=== PATIENT | female | born 1975 | race Two or more races ===

== ENCOUNTER → 2021-09-21 13:33 | Outpatient (BNVA) | payer MEDICAID, SELFPAY | PROVIDERS: PCP Internal Medicine Geriatric Medicine; Referring Provider Internal Medicine Geriatric Medicine; Visit Provider Surgery | DX: K42.9 Umbilical hernia without obstruction or gangrene (principal); B36.9 Superficial mycosis, unspecified | CPT/HCPCS: 99202 ==

== ENCOUNTER 2021-10-05 11:37 | Outpatient (REF) | payer MEDICAID, SELFPAY ==
--- NOTE | ~2021-10-05 | MM_ITS ---
EXAMINATION: MM SCREENING DIGITAL BREAST TOMOSYNTHESIS, BILATERAL CLINICAL INFORMATION: Screening. Asymptomatic. The lifetime risk of breast cancer based on the Tyrer-Cuzick Model is 7%. COMPARISON: Mammography: 05/24/2019, 05/09/2018, 10/22/2016 TECHNIQUE: Digital breast tomosynthesis is performed in both the craniocaudal and mediolateral oblique views along with computer-aided detection (CAD). Synthesized 2D images are generated from the tomosynthesis. Additional right MLO view is provided. FINDINGS: The breasts are almost entirely fatty (ACR BI-RADS breast composition Category a). There are no significant masses, abnormal calcifications, or other abnormalities. Background stromal and fibroglandular densities are similar to prior exams. The axilla and skin contours are unremarkable. No significant changes. MM/MM tomosynthesis screening BI IMPRESSION: No mammographic evidence of malignancy. ASSESSMENT: BI-RADS 1: Negative RECOMMENDATION: Routine annual mammography screening. This patient's information was entered into a reminder system with a target due date for their next mammogram.
== END 2021-10-05 11:38 | disposition home or self-care (01) ==
LOC: HO.MAMMO 11:37
PROVIDERS: PCP Advanced Practice Midwife; Visit Provider Advanced Practice Midwife
DX: Z12.31 Encounter for screening mammogram for malignant neoplasm of breast (principal)
CPT/HCPCS: 77063; 77067

== ENCOUNTER 2021-10-13 10:28 | Outpatient (REF) | payer MEDICAID, SELFPAY ==
--- NOTE | ~2021-10-13 | US_ITS ---
EXAMINATION: US PELVIS CLINICAL INFORMATION: Dysmenorrhea COMPARISON: Previous pelvic ultrasound most recent February 2019 TECHNIQUE: Ultrasound of the pelvis is performed using both transabdominal and transvaginal transducers along with Doppler. Transvaginal imaging is performed due to inadequate visualization transabdominally. FINDINGS: The uterus is anteverted and measures 9.7 x 6.4 x 5.9 cm in dimension. No focal uterine lesion is seen. Endometrial thickness is slightly increased measuring 1.7 cm. No focal uterine lesion is seen. There are nabothian cysts in the cervix. The ovaries are normal-appearing. The right ovary measures 2.4 x 1.6 x 2.9 cm. The left ovary measures 2.2 x 1.3 x 2.5 cm. There is no fluid in the pelvis. US/US pelvic and transvaginal IMPRESSION: Slightly thickened endometrium measuring 1.7 cm. Otherwise unremarkable exam.
== END 2021-10-13 10:29 | disposition home or self-care (01) ==
LOC: HO.US 10:28
PROVIDERS: PCP Advanced Practice Midwife; Visit Provider Advanced Practice Midwife
DX: N94.6 Dysmenorrhea, unspecified (principal)
CPT/HCPCS: 76830; 76856

== ENCOUNTER → 2021-10-19 09:08 | Outpatient (BNVA) | payer MEDICAID, SELFPAY | PROVIDERS: PCP Advanced Practice Midwife; Referring Provider Internal Medicine Geriatric Medicine; Visit Provider Physician Assistant Surgical | DX: Z13.89 Encounter for screening for other disorder (principal) ==

== ENCOUNTER → 2021-10-21 11:05 | Outpatient (BNVA) | payer MEDICAID, SELFPAY | PROVIDERS: PCP Advanced Practice Midwife; Referring Provider Advanced Practice Midwife; Visit Provider Physician Assistant | DX: K21.9 Gastro-esophageal reflux disease without esophagitis (principal); R13.10 Dysphagia, unspecified | CPT/HCPCS: 99202 ==

== ENCOUNTER → 2021-10-28 14:49 | Outpatient (BNVA) | payer MEDICAID, SELFPAY | PROVIDERS: PCP Internal Medicine Geriatric Medicine; Referring Provider Internal Medicine Geriatric Medicine; Visit Provider Physician Assistant Surgical | DX: E66.01 Morbid (severe) obesity due to excess calories (principal); Z68.41 Body mass index [BMI] 40.0-44.9, adult | CPT/HCPCS: 99202 ==

== ENCOUNTER 2021-11-08 11:23 | Outpatient (REF) | payer MEDICAID, SELFPAY ==
--- NOTE | ~2021-11-08 | XR_ITS ---
EXAMINATION: XR CHEST CLINICAL INFORMATION: Morbid to severe obesity. COMPARISON: None TECHNIQUE: 2 views of the chest were obtained. FINDINGS: No significant abnormality is noted involving the heart, lungs, mediastinum, bony thorax or soft tissues. XR/XR chest 2V IMPRESSION: Unremarkable chest examination.
--- NOTE | 2021-11-08 11:30 | ECG_ITS ---
Test Reason : OBESITY Blood Pressure : / mmHG Vent. Rate : 078 BPM Atrial Rate : 078 BPM P-R Int : 166 ms QRS Dur : 072 ms QT Int : 360 ms P-R-T Axes : 014 -17 -04 degrees QTc Int : 410 ms Normal sinus rhythm Normal ECG When compared with ECG of 19-JUL-2015 10:23, No significant change was found Referred By: Vern Hemphill Electronically Signed By:YASH IZQUIERDO MD
[2021-11-08 11:38] LABS: MANUAL DIFF FLAG NO
[2021-11-08 12:06] LABS: Estimated Average Glucose 128 mg/dL; Hemoglobin A1c % 6.1 %
[2021-11-08 12:11] LABS: Basophils Absolute Auto 0.1 X10*3/uL (0.0-0.2); Basophils Percent Auto 0.9 % (0-2); Eosinophils Absolute Auto 0.1 X10*3/uL (0.0-0.4); Eosinophils Percent Auto 2.1 % (0-4); Hematocrit 40.3 % (37.0-47.0); Imm Gran Abs Auto 0.02 X10*3/uL (0.00-0.03); Imm Gran Pct Auto 0.3 % (0.0-0.4); Lymphocytes Absolute Auto 2.1 X10*3/uL (1.2-4.9); Lymphocytes Percent Auto 30.8 % (20-40); Mean Corpuscular HGB Conc 32.3 g/dl (31.0-35.0); Mean Corpuscular Hemoglobin 27.5 pg (27.0-33.0); Mean Corpuscular Volume 85.4 fL (80.0-98.0); Mean Platelet Volume 9.5 fL (9.4-12.3); Monocytes Absolute Auto 0.5 X10*3/uL (0.1-1.2); Neutrophils Percent Auto 58.9 % (45-73); Platelet Count 381 X10*3/uL (160-400); Red Blood Count 4.72 X10*6/uL (4.20-5.50); Red Cell Distribution Width 13.1 % (11.0-16.0); White Blood Count 6.8 X10*3/uL (4.8-10.8)
[2021-11-08 12:31] LABS: Alanine Aminotransferase 36 U/L (0-31); Alkaline Phosphatase 45 U/L (39-117); Anion Gap 12 (12-20); Aspartate Amino Transferase 25 U/L (5-31); Bilirubin Total 0.6 mg/dL (0.0-1.0); Blood Urea Nitrogen 8 mg/dL (9-16); C Reactive Protein 0.47 mg/dL (< or = 0.50); Calcium 9.7 mg/dL (8.4-10.2); Carbon Dioxide 25 mmol/L (22-29); Chloride 105 mmol/L (96-108); Cholesterol 174 mg/dL; Estimated Glomerular Filt Rate > 60; Glucose Random 92 mg/dL (60-115); HDL Cholesterol 37 mg/dL; Iron 42 mcg/dL (30-160); LDL Cholesterol Calculated 117 mg/dl; Percent Iron Saturation 12 % (15-50); Potassium 4.3 mmol/L (3.3-5.1); Sodium 138 mmol/L (135-145); Total Iron Binding Capacity 349 mcg/dL (228-428); Total Protein 7.4 g/dL (6.5-8.0); Triglycerides 102 mg/dL; Unsaturated Iron Binding 307 ug/dL
[2021-11-08 12:46] LABS: Ferritin 20 ng/mL (10-250); Insulin 8 uU/mL (2-29); TSH reflex Free T4 0.44 uIU/mL (0.32-4.0); Vitamin D 25-OH Total 33.7 ng/mL (>30)
[2021-11-08 12:59] LABS: Folate 15.6 ng/mL (> or = 4.0); Vitamin B12 825 pg/mL (200-900)
[2021-11-09 12:37] LABS: Calcium (PTHI) 9.6 mg/dL (8.6-10.2); PTHI 20 pg/mL (16-77)
[2021-11-11 17:01] LABS: Vitamin B1 <6 nmol/L (8-30)
[2021-11-12 14:26] LABS: Zinc 68 mcg/dL (60-130)
[2021-11-15 13:41] LABS: Vitamin A 27 mcg/dL (38-98)
== END 2021-11-08 11:24 | disposition home or self-care (01) ==
LOC: HO.LAB 11:23
PROVIDERS: PCP Internal Medicine Geriatric Medicine; Visit Provider Physician Assistant Surgical
DX: E66.01 Morbid (severe) obesity due to excess calories (principal)
CPT/HCPCS: 36415; 71046; 80053; 80061; 82306; 82607; 82728; 82746; 83036; 83525; 83540; 83970; 84425; 84443; 84590; 84630; 85025; 86140; 93005

== ENCOUNTER → 2021-11-12 11:01 | Outpatient (BNVA) | payer MEDICAID, SELFPAY | PROVIDERS: PCP Internal Medicine Geriatric Medicine; Referring Provider Internal Medicine Geriatric Medicine; Visit Provider Physician Assistant Surgical | DX: E66.01 Morbid (severe) obesity due to excess calories (principal); E51.9 Thiamine deficiency, unspecified; Z68.41 Body mass index [BMI] 40.0-44.9, adult | CPT/HCPCS: 99212 ==

== ENCOUNTER 2021-11-16 12:39 | Outpatient (REF) | payer MEDICAID, SELFPAY ==
[2021-11-17 12:43] LABS: H Pylori Breath Test Negative (Negative)
== END 2021-11-16 12:40 | disposition home or self-care (01) ==
LOC: HO.LNP 12:39
PROVIDERS: PCP Internal Medicine Geriatric Medicine; Referring Provider Internal Medicine Geriatric Medicine; Visit Provider Physician Assistant Surgical
DX: E66.01 Morbid (severe) obesity due to excess calories (principal)
CPT/HCPCS: 83013; 99211

== ENCOUNTER → 2021-11-22 08:19 | Outpatient (BNVA) | payer MEDICAID, SELFPAY | PROVIDERS: PCP Internal Medicine Geriatric Medicine; Visit Provider Dietitian, Registered | DX: E66.01 Morbid (severe) obesity due to excess calories (principal) | CPT/HCPCS: 97802 ==

== ENCOUNTER 2021-12-02 07:51 | Outpatient (REF) | payer MEDICAID, SELFPAY ==
[2021-12-02 15:46] LABS: CT PCR NOT DETECTED (Not Detect.); NG PCR NOT DETECTED (Not Detect.)
[2021-12-03 11:08] LABS: BV Int Neg Control Negative (Negative); BV Int Pos Control Positive (Positive)
== END 2021-12-02 07:52 | disposition home or self-care (01) ==
LOC: HO.LAB 07:51
PROVIDERS: PCP Internal Medicine Geriatric Medicine; Visit Provider Advanced Practice Midwife
DX: N92.0 Excessive and frequent menstruation with regular cycle (principal); N94.10 Unspecified dyspareunia
CPT/HCPCS: 58100; 87480; 87491; 87510; 87591; 87660; 99202

== ENCOUNTER → 2021-12-13 13:00 | Outpatient (BNVA) | payer MEDICAID, SELFPAY | PROVIDERS: PCP Internal Medicine Geriatric Medicine; Visit Provider Dietitian, Registered | DX: E66.01 Morbid (severe) obesity due to excess calories (principal); Z68.41 Body mass index [BMI] 40.0-44.9, adult | CPT/HCPCS: 97803 ==

== ENCOUNTER 2021-12-21 08:47 | Outpatient (REF) | payer MEDICAID, SELFPAY ==
--- NOTE | ~2021-12-21 | FL_ITS ---
EXAMINATION: XR FLUOROSCOPY UPPER GI WITH AIR CLINICAL INFORMATION: Obesity COMPARISON: Previous upper GI December 2019 TECHNIQUE: Upper GI was performed using thin and thick barium and effervescent granules FINDINGS: Esophageal motility is normal. There is a small hiatal hernia. There is mild gastroesophageal reflux. The stomach and duodenum are normal-appearing. No fold thickening, mass, ulcer or stricture is seen FLUOROSCOPY TIME: 1 minute DOSE AREA PRODUCT: 12.6 christensen per centimeter squared. 28 saved fluoroscopic images. FL/FL upper GI w air IMPRESSION: Small hiatal hernia and mild gastroesophageal reflux.
--- NOTE | ~2021-12-21 | US_ITS ---
EXAMINATION: US COMPLETE ABDOMEN WITH LIVER ELASTOGRAPHY CLINICAL INFORMATION: Morbid/severe obesity due to excess calories. COMPARISON: None. TECHNIQUE: Real-time imaging of the abdominal viscera. Noninvasive ultrasound liver fibrosis assessment is performed using Arnulfo ElastPQ point quantification shear wave elastography (2D-SWE) with a C5-2 MHz transducer. Multiple elastography samples are obtained. FINDINGS: PANCREAS: Normal. The visualized pancreatic head and body are normal in appearance. The remainder of the pancreas is obscured from visualization by the overlying bowel gas. ABDOMINAL AORTA: The proximal, middle, and distal aortic segments are normal in caliber. INFERIOR VENA CAVA: Visualized portions are normal. LIVER: The liver demonstrates normal size, contour and increased echogenicity. No focal lesion or intrahepatic biliary duct dilatation. The right lobe measures 15.5 cm in length. The left lobe measures 10.8 cm in length. Portal flow is hepatopedal. Shear wave liver elastography median stiffness is 1.22 m/s (reference: normal median stiffness is 1.3 m/s or less). IQR/median stiffness to assess sampling precision is 0.16 (reference: good quality data set is IQR/median stiffness of 0.15 or less). GALLBLADDER: The gallbladder has been surgically removed. COMMON BILE DUCT: Normal in caliber measuring 0.85 cm in diameter. RIGHT KIDNEY: Normal. No hydronephrosis. No renal calculi or focal parenchymal lesions. The kidney measures 14.7 cm in maximum dimension. LEFT KIDNEY: Normal. No hydronephrosis. No renal calculi or focal parenchymal lesions. The kidney measures 14.5 cm in maximum dimension. SPLEEN: Normal. The spleen measures 9.1 cm in maximum dimension. FREE FLUID: None. US/US abdomen comp w elastography IMPRESSION: 1. Mild hepatic steatosis without focal lesion. The rest of the abdominal ultrasound is unremarkable. 2. Liver elastography: Median liver stiffness measures 1.22 m/s corresponding to high probability normal findings. REFERENCE: Society of Radiologists in Ultrasound Liver Stiffness Thresholds (2020): LIVER STIFFNESS THRESHOLDS: *Liver Stiffness equal or less than 1.3 m/s: High probability of being normal. *Liver Stiffness less than 1.7 m/s: In the absence of other known clinical signs, rules out compensated advanced chronic liver disease. *Liver Stiffness 1.7-2.1 m/s: Suggestive of compensated advanced chronic liver disease but need further test for confirmation. *Liver Stiffness over 2.1 m/s: Rules in compensated advanced chronic liver disease. *Liver Stiffness over 2.4 m/s: Suggestive of clinically significant portal hypertension. QUALITY OF DATA SET: *IQR/Median value equal or less than 0.15 implies a quality data set. *IQR/Median value over 0.15 implies a poor quality data set. SIGNIFICANT CHANGE FROM PRIOR EXAM: Significant change if liver stiffness measurement is 10% or greater from prior exam. OTHER CONSIDERATIONS: The stage of liver fibrosis may be overestimated in the setting of acute hepatitis, liver inflammation, elevated liver function tests, hepatic vascular congestion, obstructive cholestasis, non-fasting state, and infiltrative diseases such as amyloidosis and lymphoma. In some patients with NAFLD, the liver stiffness thresholds for compensated advanced chronic liver disease may be lower. In causes other than viral hepatitis and NAFLD, liver stiffness thresholds are not well established.
== END 2021-12-21 08:48 | disposition home or self-care (01) ==
LOC: HO.US 08:47
PROVIDERS: PCP Internal Medicine Geriatric Medicine; Visit Provider Surgery
DX: E66.01 Morbid (severe) obesity due to excess calories (principal)
CPT/HCPCS: 74246; 76705; 76981

== ENCOUNTER → 2022-01-19 15:09 | Outpatient (BNVA) | payer MEDICAID, SELFPAY | PROVIDERS: PCP Internal Medicine Geriatric Medicine; Visit Provider Dietitian, Registered | DX: E66.01 Morbid (severe) obesity due to excess calories (principal) | CPT/HCPCS: 97803 ==

== ENCOUNTER → 2022-01-25 13:21 | Outpatient (BNVA) | payer MEDICAID, SELFPAY | PROVIDERS: PCP Internal Medicine Geriatric Medicine; Visit Provider Physician Assistant Surgical | DX: E66.01 Morbid (severe) obesity due to excess calories (principal); R53.83 Other fatigue; Z68.41 Body mass index [BMI] 40.0-44.9, adult | CPT/HCPCS: 99212 ==

== ENCOUNTER → 2022-05-31 09:34 | Outpatient (BNVA) | payer MEDICAID, SELFPAY | PROVIDERS: PCP Internal Medicine Geriatric Medicine; Visit Provider Physician Assistant Surgical | DX: E66.01 Morbid (severe) obesity due to excess calories (principal); Z68.41 Body mass index [BMI] 40.0-44.9, adult | CPT/HCPCS: 99212 ==

== ENCOUNTER → 2022-06-24 10:32 | Outpatient (BNVA) | payer MEDICAID, SELFPAY | PROVIDERS: PCP Internal Medicine Geriatric Medicine; Visit Provider Physician Assistant Surgical | DX: E66.01 Morbid (severe) obesity due to excess calories (principal); Z68.41 Body mass index [BMI] 40.0-44.9, adult | CPT/HCPCS: 99212 ==

== ENCOUNTER → 2022-06-30 11:15 | Outpatient (BNVA) | payer MEDICAID, SELFPAY | PROVIDERS: PCP Internal Medicine Geriatric Medicine; Visit Provider Dietitian, Registered | DX: E66.01 Morbid (severe) obesity due to excess calories (principal) | CPT/HCPCS: 97803 ==

== ENCOUNTER 2022-07-13 10:42 | Outpatient (REF) | payer MEDICAID, SELFPAY ==
[2022-07-13 12:30] LABS: Estimated Average Glucose 120 mg/dL; Hemoglobin A1c % 5.8 %
[2022-07-13 13:11] LABS: Vitamin D 25-OH Total 32.9 ng/mL (>30)
[2022-07-13 13:23] LABS: Folate 10.6 ng/mL (> or = 4.0); Vitamin B12 945 pg/mL (200-900)
[2022-07-17 10:18] LABS: Vitamin A 58 mcg/dL (38-98); Zinc 73 mcg/dL (60-130)
[2022-07-18 08:13] LABS: Vitamin B1 8 nmol/L (8-30)
== END 2022-07-13 10:43 | disposition home or self-care (01) ==
LOC: HO.LAB 10:42
PROVIDERS: PCP Internal Medicine Geriatric Medicine; Visit Provider Physician Assistant Surgical
DX: E66.01 Morbid (severe) obesity due to excess calories (principal); E56.9 Vitamin deficiency, unspecified
CPT/HCPCS: 36415; 82306; 82607; 82746; 83036; 84425; 84590; 84630; 99212

== ENCOUNTER → 2022-07-22 12:27 | Outpatient (BNVA) | payer MEDICAID, SELFPAY | PROVIDERS: PCP Internal Medicine Geriatric Medicine; Visit Provider Dietitian, Registered | DX: E66.9 Obesity, unspecified (principal); Z68.41 Body mass index [BMI] 40.0-44.9, adult; E51.9 Thiamine deficiency, unspecified; R73.03 Prediabetes; G47.33 Obstructive sleep apnea (adult) (pediatric); I10 Essential (primary) hypertension; K21.9 Gastro-esophageal reflux disease without esophagitis; K42.9 Umbilical hernia without obstruction or gangrene; R13.10 Dysphagia, unspecified; K44.9 Diaphragmatic hernia without obstruction or gangrene; J45.909 Unspecified asthma, uncomplicated; Z99.89 Dependence on other enabling machines and devices; Z71.3 Dietary counseling and surveillance | CPT/HCPCS: 97803; 99202 ==

== ENCOUNTER → 2022-07-28 10:00 | Outpatient (BNVA) | payer MEDICAID, SELFPAY | PROVIDERS: PCP Internal Medicine Geriatric Medicine; Visit Provider Physician Assistant Surgical | DX: Z13.89 Encounter for screening for other disorder (principal) ==

== ENCOUNTER → 2022-08-03 09:50 | Outpatient (BNVA) | payer MEDICAID, SELFPAY | PROVIDERS: PCP Internal Medicine Geriatric Medicine; Visit Provider Surgery | DX: E66.01 Morbid (severe) obesity due to excess calories (principal); I10 Essential (primary) hypertension; R73.03 Prediabetes; K44.9 Diaphragmatic hernia without obstruction or gangrene; K21.9 Gastro-esophageal reflux disease without esophagitis; Z68.39 Body mass index [BMI] 39.0-39.9, adult; K42.9 Umbilical hernia without obstruction or gangrene | CPT/HCPCS: 99212 ==

== ENCOUNTER → 2022-08-04 10:09 | Outpatient (BNVA) | payer MEDICAID, SELFPAY | PROVIDERS: PCP Internal Medicine Geriatric Medicine; Visit Provider Surgery | DX: Z13.89 Encounter for screening for other disorder (principal) ==

== ENCOUNTER 2022-08-10 08:31 | Inpatient (IN) | payer MEDICAID, SELFPAY ==
[2022-08-03 14:01] VITALS: BMI 39.6
[2022-08-05 10:31] LABS: MANUAL DIFF FLAG NO
[2022-08-05 11:01] LABS: Basophils Percent Auto 0.6 % (0-2); Eosinophils Absolute Auto 0.1 X10*3/uL (0.0-0.4); Eosinophils Percent Auto 1.7 % (0-4); Hematocrit 38.3 % (37.0-47.0); Hemoglobin 12.5 g/dl (12.0-16.0); Imm Gran Abs Auto 0.01 X10*3/uL (0.00-0.03); Imm Gran Pct Auto 0.2 % (0.0-0.4); Lymphocytes Absolute Auto 1.9 X10*3/uL (1.2-4.9); Lymphocytes Percent Auto 28.6 % (20-40); Mean Corpuscular HGB Conc 32.6 g/dl (31.0-35.0); Mean Corpuscular Hemoglobin 27.1 pg (27.0-33.0); Mean Corpuscular Volume 82.9 fL (80.0-98.0); Mean Platelet Volume 9.3 fL (9.4-12.3); Monocytes Absolute Auto 0.4 X10*3/uL (0.1-1.2); Monocytes Percent Auto 5.8 % (2-11); Neutrophils Absolute Auto 4.1 x10*3/uL (2.0-8.3); Neutrophils Percent Auto 63.1 % (45-73); Platelet Count 361 X10*3/uL (160-400); Red Blood Count 4.62 X10*6/uL (4.20-5.50); Red Cell Distribution Width 13.5 % (11.0-16.0); White Blood Count 6.5 X10*3/uL (4.8-10.8)
[2022-08-05 11:06] LABS: INTERNATIONAL NORM RATIO 1.2 (0.9-1.1); Prothrombin Time 13.6 SEC (10.0-13.1)
[2022-08-05 11:09] LABS: Partial Thromboplastin Time 36.2 SEC (26.0-36.4)
[2022-08-05 11:19] LABS: Estimated Average Glucose 117 mg/dL; Hemoglobin A1C 125.0262 umol/L; Hemoglobin A1c % 5.7 %
[2022-08-05 12:18] LABS: Alanine Aminotransferase 14 U/L (0-31); Albumin Level 4.1 g/dL (3.5-5.0); Alkaline Phosphatase 46 U/L (39-117); Anion Gap 13 (12-20); Aspartate Amino Transferase 14 U/L (5-31); Bilirubin Total 0.5 mg/dL (0.0-1.0); Blood Urea Nitrogen 7 mg/dL (9-16); C Reactive Protein 0.36 mg/dL (< or = 0.50); Calcium 9.4 mg/dL (8.4-10.2); Carbon Dioxide 24 mmol/L (22-29); Chloride 105 mmol/L (96-108); Cholesterol 182 mg/dL; Creatinine Clr Calc Pharmacy 139.9; Estimated Glomerular Filt Rate > 60; Glucose Random 74 mg/dL (60-115); HDL Cholesterol 35 mg/dL; Iron 72 mcg/dL (30-160); LDL Cholesterol Calculated 131 mg/dl; Percent Iron Saturation 24 % (15-50); Potassium 4.4 mmol/L (3.3-5.1); Sodium 138 mmol/L (135-145); Total Iron Binding Capacity 303 mcg/dL (228-428); Total Protein 7.2 g/dL (6.5-8.0); Triglycerides 82 mg/dL; Unsaturated Iron Binding 231 ug/dL
[2022-08-05 12:22] LABS: Vitamin B12 835 pg/mL (200-900)
[2022-08-05 12:23] LABS: Ferritin 19 ng/mL (10-250); TSH reflex Free T4 0.34 uIU/mL (0.32-4.0); Vitamin D 25-OH Total 28.2 ng/mL (>30)
[2022-08-08 13:23] LABS: Calcium (PTHI) 9.5 mg/dL (8.6-10.2); PTHI 26 pg/mL (16-77)
[2022-08-09 04:49] LABS: Zinc 80 mcg/dL (60-130)
[2022-08-09 14:55] LABS: COVID-19 Test Negative (Negative); IDNOW Serial# 16C4AD1C
[2022-08-10] VITALS (11 sets, daily range): BP systolic 113–149; BP diastolic 74–89; PULSE 87–107; RESP 12–21; TEMP 36.1–36.9; O2SAT 95–99
[2022-08-10] MEDS: Scopolamine 1.5 MG PATCH.TD.3 TRANSDERMA (08:53)
--- NOTE | 2022-08-10 08:59 | PHA.MEDREC ---
Pharmacy Consult ? Medication Reconciliation Pharmacy has completed the medication reconciliation. Reviewed med rec done by nursing
[2022-08-10] MEDS: Lactated Ringers 1,000 ML 50 ML IVCONT (09:01)
--- NOTE | 2022-08-10 10:27 | P.OP_ITS ---
Operative Note Operative Note Date of Service: 08/10/22 Narrative: Preop diagnosis: [Morbid obesity, obstructive sleep apnea, prediabetes, hypertension, PASCAL, hiatal hernia] Postop diagnosis: [same, scar tissue causing intra-abdominal adhesions, recurrent umbilical hernia and dislodged mesh/plug repair] Procedure: [Laparoscopic sleeve gastrectomy, hiatal hernia repair, intraoperative upper endoscopy, gastropexy, lysis of adhesions for 37 minutes] Surgeon: Misael Ortiz MD Assist: [Yolanda Cueva PA-C] Anesthesia: [GET] Estimated blood loss: [3cc] Specimen: [Portion of stomach with fundus] Intraoperative findings: [The patient had significant intra-abdominal adhesions of the omentum to the anterior abdominal wall/peritoneum from an open cholecystectomy; hepatomegaly; PASCAL; grossly normal stomach; recurrent umbilical hernia containing dislodged, distorted mesh plug and viable omentum, reduced intraoperatively] Indications: [The patient is a 47-year-old woman with a history of obesity and multiple episodes of failed medical management with weight regain who has comorbidities of obstructive sleep apnea requiring CPAP, prediabetes, hypertension, PASCAL and a hiatal hernia on upper GI series. Her surggical history includes an open cholecystectomy in [place]. After reviewing options including continued medical management, 2nd opinion and bariatric surgery, we had reviewed the pros and cons of gastric bypass versus sleeve gastrectomy and the patient wanted to proceed with the sleeve gastrectomy. I reviewed the inherent risks of this procedure which include, but are not limited to: Bleeding that could require another operation or blood transfusion; the inherent risks of transfusion reaction infectious disease from blood transfusions; the risk of staple line leaks that could cause sepsis, multi- system organ failure and ; the risk of mesenteric or deep vein thrombosis of the lower extremities that could cause a fatal pulmonary embolism was reviewed; the risk of GERD that could require conversion to gastric bypass was discussed; the risk of recurrent hiatal hernia, especially in the setting of weight regain was reviewed. The risk of weight regain if maladaptive eating and sedentary behavior continue was discussed. The importance of proper diet and increased activity to augment surgical weight loss and the fact that no operation would result in weight loss of poor dietary decisions and sedentary behavior are resumed were discussed at length and apparently understood. The patient had an dust handler present for all discussions and seemed to have her questions answered.] Procedure: [The patient was identified by myself in the preoperative holding and again an operating room 6. She was placed supine on the table &identified again by myself & the OR team. She was placed supine on the operating table. Safety straps were utilized and a footboard utilized. The patient was induced in general endotracheal anesthesia administered with excellent effect. An appropriate time-out was performed. The patient's abdomen was then widely prepped and draped in the usual manner for surgery using chlorhexidine. Antibiotics per protocol were administered by Anesthesia. 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 SCDs were utilized. After infiltrating preemptive local in the skin and subcutaneous tissues in the left subcostal space, a stab incision was made sharply and the Veress needle inserted without incident. Appropriate drop test was performed then a pneumoperitoneum of 15 mmHg was obtained using carbon dioxide. Opening pressures were 15 mm Hg, 2 other attempts were made and then aborted in favor of open Reeves technique. Preemptive local was used at all trocar insertion sites and I began in the epigastric midline 10 cm from the xiphoid. A transverse incision was made dissection was carried down to the anterior fascia, a fascial incision made and a 12 mm Reeves trocar placed and secured to the skin with 0 Polysorb sutures. Next, a 5 mm 0 degree scope confirmed intra-abdominal placement of the trocar. There was no evidence of injury from the Veress needle in it was removed; it was unclear whether not the needle penetrated the peritoneal surface. The bowel and deep structures were examined for injury from the trocar and none identified. The scope was then switched to a 5 mm 45 degree scope. Extensive adhesions to the right upper quadrant containing viable omentum was noted as well as incarcerated viable omentum and an umbilical hernia. The umbilical hernia was reduced and a malpositioned mesh plug left in place. The right upper quadrant adhesions of the omentum to the prior open cholecystectomy required 37 minutes of lysis of adhesions with a LigaSure. Next, using preemptive local, additional 5 mm trocars were placed under direct laparoscopic vision following the lysis of adhesions. The patient was then positioned in reverse Trendelenburg and the liver retractor deployed through the right lateral 5 mm trocar and secured. An hiatal hernia was demonstrated once the liver retractor was positioned; the enlarged liver required repositioning of the retractor through the hiatal hernia repair. The stomach was already decompressed, but the 40 Czech ViSiGi was insterted to the GE junction by the anesthesiologist without difficulty. Dissection was begun along the greater curvature using the 5 mm [place] LigaSure for hemostasis. Dissection was then carried towards the pylorus to 3-4 cm from the pylorus and retro gastric adhesions lysed. The gastroesophageal fat pad was carefully mobilized taking care to avoid injury to the esophagus and stomach and dissection carried towards the short gastrics taking care to avoid injury to the spleen and splenic artery. The diaphragmatic hiatus was carefully examined for a hernia which was present as described, so repair was indicated. Dissection was carried from the left chen of the diaphragm posteriorly. Next, the phrenoesophogeal memberane was open anterior and the pars flaccida opened to access the right chen of the diaphragm. The esophagus was carefully preserved, mobilized & freed into the abdomen for 3cm by dissection carried into the mediastinum. The esophagus was then surrounded with a quarter-inch Ludlow drain and retracted anteriorly to facilitate posterior repair. Posterior dissection of the retroesophageal area was performed to demonstrate both crurae and hiatal hernia repair was performed using two interurrupted 0 silk sutures with posterior repair. As the ViSiGi bougie was advanced back into the stomach, there was a small anterior defect that remained on the diaphragm which was closed with a single interrupted 0 silk suture. Next, the 40 Czech ViSiGi bougies was advanced by anesthesiologist under direct vision and laparoscopic guidance and positioned in the antrum using laparoscopic graspers to serve as a guide for a stapled sleeve gastrectomy. Stapling was performed with AEON Endo-JOSSE stapler with a purple 45 and then orange 45 and 60 loads. The 10 mm clip freight car cleaner delta system was used to apply additional clips to the staple line. Care was taken to be sure that the sleeve laid flat and was without stricture. Once the sleeve was complete, the portion of stomach was placed in the lower abdomen to be sent for permanent section. The staple line, gastrocolic omentum, spleen and short gastric areas were all inspected for hemostasis which was found to be good. The lavage tube was withdrawn under laparoscopic vision. An on the table leak test was performed with the ViSiGi Bougie which was negative for leak. Next, I broke scrub perform an on-table upper endoscopy to assess the sleeve and the esophagus and stomach. The patient was returned to neutral position and the Olympus 160 gastroscope was advanced taking care to preserve the endotracheal tube. The esophagus was intubated without incident. Minimal air was insufflated and the scope advanced into the newly formed sleeve. The staple line was inspected for hemostasis and the morphology of the sleeve appeared straight with a uniform diameter. Intraoperatively, there was no evidence of staple line leak seen during laparoscopy as air was insufflated via endoscope. The scope was then used to aspirate the air from the sleeve withdrawn and removed. I then rescrubbed to return to the operative field and again inspected the field for hemostasis. The patient was again placed in reverse Trendelenburg. A gastropexy was performed using 2-0 polysorb suture to secure the sleeve gastrectomy to the gastrocolic omentum with intracorporeal suture technique. After final assessment for hemostasis, the patient was returned to neutral position, a Darci used to withdraw the stomach which was sent for permanent section. The fascia of the 12 mm midline was closed using an 0 Polysorb on a suture passer in figure of 8 manner under direct laparoscopic vision. The abdomen was then deflated and all trocars removed. The suture was then tied and the skin closed with 4-0 Monocryl subcuticular sutures. The abdomen was then washed and dried, Mastisol and Steri-Strips applied followed by Band-Aids. The patient tolerated the procedure well was then extubated and sent to PACU in stable condition. All sponge needle and instrument counts were correct x2. At the patient's request, I contacted the patien'ts , Vern at [phone] to apprise him of the operation and findings. ijeoma Edwards of our program facilitated the call & interpreted. His questions seemed to be satisfactorily answered. ]
--- NOTE | 2022-08-10 10:27 | MHC.SHP ---
Pre-Procedural Eval Section A Date of Service: 08/10/22 The patient is an INPATIENT: Yes The History & Physical has been completed within 30 days and I have reviewed it.: Yes Section B Chief Complaint: Obesity S/P Sleeve gastrectomy Allergies: Allergies Allergy/AdvReac Type Severity Reaction Status Date / Time Motrin Allergy Intermediate rash Verified 08/03/22 10:16 naproxen [Naprosyn] Allergy Intermediate Rash Verified 08/03/22 13:46 prednisone [PREDNISONE] Allergy Intermediate RASH, Verified 08/03/22 10:16 itching Plan I have reviewed the history and physical and performed a pertinent physical examination on my patient. No changes have occurred unless specified. Time Spent With Patient Time: Total time managing care of this patient today ____ minutes.
--- NOTE | 2022-08-10 10:43 | P.CONAN_ITS ---
HPI - Anesthesia Eval Consult details Narrative: 47 F for gastric sleeve PMFSH Active Problems Active Problems: All Active Problems (Updated 08/03/22 @ 13:54 by Frida Trejo RN) Fungal skin infection (Acute) Umbilical hernia (Acute) Acid reflux (Acute) Dysphagia (Acute) Hiatal hernia with gastroesophageal reflux (Acute) Morbid obesity (Acute) HTN (hypertension) (Acute) Prediabetes (Acute) Vitamin B1 deficiency (Acute) Heavy menstrual bleeding (Acute) Dyspareunia in female (Acute) Diaphragmatic hernia (Acute) Asthma (Acute) Fatigue (Acute) Vitamin deficiency (Acute) Obstructive sleep apnea treated with continuous positive airway pressure (CPAP) (Acute) Asthma (Acute) Past Medical History Medical History (Updated 08/03/22 @ 13:54 by Frida Trejo RN) Asthma GERD (gastroesophageal reflux disease) Hiatal hernia HTN (hypertension) Obstructive sleep apnea treated with continuous positive airway pressure (CPAP) Pre-diabetes Functional capacity: independent ambulation Family History Family History Father No problems noted. Mother Diabetes Hypertension FH: mental illness Maternal Grandmother Hypertension Maternal Uncle Cancer Leukemia Family/Other FH: mental illness Son No problems noted. Son Asthma Glaucoma Son No problems noted. Sister FH: mental illness High cholesterol Brother High cholesterol Family history of problems with anesthesia: No Surgical History Surgical History (Updated 08/10/22 @ 15:52 by Yolanda Cueva PA-C) History of delivery History of cholecystectomy History of endoscopy History of tubal ligation History of umbilical hernia repair (10/06/17) History of Problems with Anesthesia: No Social History Social History Are you a primary rn progressive care to a significant other at home: No Do you presently have visiting nurse or other home services: No Alcohol intake: never Patient Tobacco Use Status: Never used Tobacco Use of substances other than those prescribed or required for medical reasons: No Have you been hit, kicked, punched, or otherwise hurt by someone within the past year? If so, by whom?: No Are you DNR?: No Advance Directives: No Advance Directives Information Provided: Yes (brochure mailed) Advance Directives on File: No Recently lost weight without trying: No Eating poorly because of decreased appetite: No Nutrition Risks: No Nutritional Risk Patient : No (irregular menses) FDLMP: 06/26/23 : No Poor oral hygiene: No Meds Allergies Allergy/AdvReac Type Severity Reaction Status Date / Time ibuprofen [From Motrin] Allergy Intermediate Rash Verified 08/10/22 15:05 naproxen [Naprosyn] Allergy Intermediate Rash Verified 08/03/22 13:46 prednisone [PREDNISONE] Allergy Intermediate RASH, Verified 08/03/22 10:16 itching Active Medications: Current Medications Lactated Ringer's (Lr) 1,000 mls @ 50 mls/hr IVCONT .Q20H [facility] Last Admin: 08/10/22 09:01 Dose: 50 mls/hr Lactated Ringer's (Lr) 1,000 mls @ 150 mls/hr IVCONT .Q6H40M [facility] Home Medications Medication Instructions Recorded Confirmed Last Taken Type albuterol sulfate 90 mcg/actuation 2 puff inhalation Q6H PRN wheezing 09/21/21 08/03/22 08/10/22 History aerosol inhaler (ProAir HFA) blood sugar diagnostic (FreeStyle #10 ea 09/21/21 08/03/22 Unknown History Lite Strips) ferrous sulfate 325 mg (65 mg 325 mg PO DAILY 09/21/21 08/03/22 08/03/22 History iron) tablet (FeroSul) lancets 33 gauge (TRUEplus Lancets) #100 ea 09/21/21 08/03/22 Unknown History lisinopril 5 mg tablet 5 mg PO DAILY 09/21/21 08/03/22 08/09/22 History meclizine 12.5 mg tablet 12.5 mg PO TID PRN dizziness 09/21/21 08/03/22 Unknown History Exam Exam Date and Time: August 10, 2022 1043 Height,Weight and Vital Signs: Height 5 ft 4 in Weight 104.78 kg Last Vital Signs Temp 97.4 F 08/10/22 08:42 Pulse 93 08/10/22 08:42 Resp 18 08/10/22 08:42 BP 135/83 08/10/22 08:42 Pulse Ox 98 08/10/22 08:42 O2 Del Method 08/10/22 08:42 Pertinent Lab Results Pertinent Lab Results: Laboratory Tests 01/08/05/22 08/05/22 10:18 10:30 10:30 WBC 6.5 RBC 4.62 Hgb 12.5 Hct 38.3 MCV 82.9 MCH 27.1 MCHC 32.6 RDW 13.5 Plt Count 361 MPV 9.3 L Immature Gran % (Auto) 0.2 Neut % (Auto) 63.1 Lymph % (Auto) 28.6 [place] % (Auto) 5.8 Eos % (Auto) 1.7 Baso % (Auto) 0.6 Lymph # (Auto) 1.9 [place] # (Auto) 0.4 Eos # (Auto) 0.1 Baso # (Auto) 0.0 Abs Immat Gran (auto) 0.01 Absolute Neuts (auto) 4.1 Absolute Nucleated RBC 0.000 Nucleated RBC % (auto) 0.0 PT 13.6 H INR 1.2 H APTT 36.2 Sodium Potassium Chloride Carbon Dioxide Anion Gap BUN Creatinine Estim Creat Clear Calc Estimated GFR Random Glucose Estimat Average Glucose Hemoglobin A1c % Calcium Iron TIBC % Saturation Unsat Iron Binding Ferritin Total Bilirubin AST ALT Alkaline Phosphatase C-Reactive Protein Total Protein Albumin Triglycerides Cholesterol LDL Cholesterol, Calc HDL Cholesterol Vitamin B12 25-OH Vitamin D Total TSH PTH Intact Calcium (PTH Intact) Zinc COVID-19 (BETO) COVID-19 Clin Com Blood Type O Negative Antibody Screen NEGATIVE 08/05/22 08/05/22 08/05/22 10:30 10:30 10:30 WBC RBC Hgb Hct MCV MCH MCHC RDW Plt Count MPV Immature Gran % (Auto) Neut % (Auto) Lymph % (Auto) [place] % (Auto) Eos % (Auto) Baso % (Auto) Lymph # (Auto) [place] # (Auto) Eos # (Auto) Baso # (Auto) Abs Immat Gran (auto) Absolute Neuts (auto) Absolute Nucleated RBC Nucleated RBC % (auto) PT INR APTT Sodium 138 Potassium 4.4 Chloride 105 Carbon Dioxide 24 Anion Gap 13 BUN 7 L Creatinine 0.58 Estim Creat Clear Calc 139.9 Estimated GFR > 60 Random Glucose 74 Estimat Average Glucose 117 Hemoglobin A1c % 5.7 Calcium 9.4 Iron 72 TIBC 303 % Saturation 24 Unsat Iron Binding 231 Ferritin 19 Total Bilirubin 0.5 AST 14 ALT 14 Alkaline Phosphatase 46 C-Reactive Protein 0.36 Total Protein 7.2 Albumin 4.1 Triglycerides 82 Cholesterol 182 LDL Cholesterol, Calc 131 HDL Cholesterol 35 Vitamin B12 835 25-OH Vitamin D Total 28.2 TSH 0.34 PTH Intact Calcium (PTH Intact) Zinc COVID-19 (BETO) COVID-19 Simplist Com Blood Type Antibody Screen 08/05/22 08/05/22 08/09/22 10:30 10:30 14:25 WBC RBC Hgb Hct MCV MCH MCHC RDW Plt Count MPV Immature Gran % (Auto) Neut % (Auto) Lymph % (Auto) [place] % (Auto) Eos % (Auto) Baso % (Auto) Lymph # (Auto) [place] # (Auto) Eos # (Auto) Baso # (Auto) Abs Immat Gran (auto) Absolute Neuts (auto) Absolute Nucleated RBC Nucleated RBC % (auto) PT INR APTT Sodium Potassium Chloride Carbon Dioxide Anion Gap BUN Creatinine Estim Creat Clear Calc Estimated GFR Random Glucose Estimat Average Glucose Hemoglobin A1c % Calcium Iron TIBC % Saturation Unsat Iron Binding Ferritin Total Bilirubin AST ALT Alkaline Phosphatase C-Reactive Protein Total Protein Albumin Triglycerides Cholesterol LDL Cholesterol, Calc HDL Cholesterol Vitamin B12 25-OH Vitamin D Total TSH PTH Intact 26 Calcium (PTH Intact) 9.5 Zinc 80 COVID-19 (BETO) Negative COVID-19 Simplist Com See Note Blood Type Antibody Screen Airway Mallampati Class: III TM Dist: >3cm Neck ROM: Full Loose/Missing/Broken Teeth: Yes (Poor dentition ) Heart: S1,S2 Lungs: distant breath sounds Assessment and Plan Assessment Anesthesia Assessment: Anesthesia Plan Discussed and Chart Reviewed Final Anesthetic Review Family History of Problems with Anesthesia: No History of Problems with Anesthesia: No NPO: Yes ASA Class: III Final Preanesthetic Review: Meds/Allgs Chart Reviewed, Consent Obtained/Reviewed and Anes Risks/Benef Reviewed Patient Risk: Intermediate Procedure Risk: Intermediate Anesthetic Plan Anesthetic Plan: GA Disposition: Standard PACU
--- NOTE | 2022-08-10 11:06 | P.DS_ITS ---
DS: Providers Provider Date of Service: 08/11/22 Date of admission: 08/10/22 08:31 Primary care physician: Morales Ly MD DS: Summary Hospital Course Hospital Course: ADMITTING DIAGNOSIS: morbid obesity, hiatal hernia, GERD, umbillical hernia DISCHARGE DIAGNOSIS: same, s/p laparoscopic sleeve gastrectomy and repair diaphragmatic hernia PAST SURGICAL HISTORY: section, open cholecystectomy, repair umbillical hernia PROCEDURE: upper endoscopy, laparoscopic sleeve gastrectomy and repair of diaphragmatic hernia hernia DISCHARGE SUMMARY: History of Present Illness: The patient is a 47 year-old woman with a BMI of 44.2 kg/m2 and associated co- morbidities as described above. The patient had extensive work-up, lost 26.8 lbs preoperatively and was electively scheduled for laparoscopic, possible open sleeve gastrectomy and gastropexy. Risks and complications of the surgery were discussed with the patient in advance, particularly the possibility of , pulmonary embolism, anastomotic leak, bleeding, bowel injury, GERD, cardiac, renal or pulmonary complications. The patient understood all the risks and was in agreement with the surgical plan. Hospital Course: The patient underwent an uneventful laparoscopic sleeve gastrectomy with gastropexy and repair of diaphragmatic hernia on the day of admission. Postoperatively, the patient was transferred to the surgical floor. The patient received IV Acetaminophen and IV dilaudid for pain control. Patient was started on bariatric phase 1 diet POD #0. On postoperative day one, the patient was feeling well without nausea, vomiting, fevers, or tachycardia. The patient had some mild incisional pain and the abdomen was soft. On the morning of postoperative day one, the patient was continued on 1 ounce of water or ice every half hour. During the day, the patient did fairly well, having some incisional pain, but able to ambulate adequately and to tolerate liquids well. Since the patient is doing well, we decided that the patient was ready to be discharged. The patient was given instructions to follow-up with me next week and to call my office for any fever over 101, persistent abdominal pain, nausea, vomiting, GERD, symptoms of DVT such as calf tenderness, or leg swelling, or pulmonary embolism such as chest pain or shortness of breath. The patient was also instructed to drink 40-60 ounces of liquids per day using the 1-ounce cups. The patient had been given prescriptions for Tylenol for pain, Zofran prn for nausea, and pantoprazole and carafate previously. The patient was encouraged to ambulate and use the incentive spirometer. The patient was allowed to shower, but no baths, and encouraged to stay active at home. All of these instructions were given to the patient personally. All questions were answered and the patient understood all instructions, the instructions were also given to the patient in print. Time Spent with Patient Time attestation: Total time managing care of this patient today ____ minutes. Discharge coordination time: Less than 30 minutes Quality: Safe Use of Opioids Does Pt have an Active Cancer Diagnosis on the Problem List?: No Quality: Stroke Does the patient have a stroke diagnosis?: No Physical Exam Vital Signs: Vital Signs: Last Vital Signs Temp 97.4 F 08/10/22 08:42 Pulse 93 08/10/22 08:42 Resp 18 08/10/22 08:42 BP 135/83 08/10/22 08:42 Pulse Ox 98 08/10/22 08:42 O2 Del Method 08/10/22 08:42 BMI result Body Mass Index 39.6 DS: Data Data Completed and Pending Labs on day of discharge: Laboratory Results - last 24 hr 08/09/22 14:25 COVID-19 (BETO) Negative COVID-19 Clin Com See Note Discharge Plan Discharge Anticipated Discharge Date/Time: 08/11/22 10:04 Patient Disposition: Home, Self-Care Discharge Diagnosis: s/p sleeve gastrectomy and repair of hiatal hernia Referrals: Name,MD Morales [Primary Care Provider] - 1 Week Discharge Medications: Continued albuterol sulfate [ProAir HFA] 90 mcg/actuation HFA aerosol inhaler 2 puff inhalation Q6H PRN (Reason: wheezing) lisinopril 5 mg tablet 5 mg PO DAILY meclizine 12.5 mg tablet 12.5 mg PO TID PRN (Reason: dizziness) nystatin 100,000 unit/gram cream 1 appl topical BID Qty: 15 0RF Rx Instructions: applied to umbilicus twice daily ondansetron HCl 4 mg tablet 4 mg PO Q6H PRN (Reason: nausea and vomiting) Qty: 20 0RF pantoprazole 40 mg tablet,delayed release (DR/EC) 40 mg PO QAM 30 Days Qty: 30 2RF sucralfate 100 mg/mL suspension 10 ml PO BID 30 Days Qty: 600 2RF Discontinued vitamin A palmitate 10,000 unit capsule 10,000 unit PO DAILY Qty: 30 1RF thiamine HCl (vitamin B1) 100 mg tablet 100 mg PO DAILY Qty: 30 2RF ferrous sulfate [FeroSul] 325 mg (65 mg iron) tablet 325 mg PO DAILY omeprazole 20 mg capsule,delayed release(DR/EC) 40 mg PO DAILY 30 Days Qty: 60 5RF No Action (DME) lancets [TRUEplus Lancets] 33 gauge misc See Rx Instructions Not Applicable BID Qty: 100 Rx Instructions: As directed (DME) FreeStyle Lite Strips Strip See Rx Instructions Not Applicable BID Qty: 10 Rx Instructions: As directed Discharge Orders: Discharge Order (Routine); Ordered 08/11/22 Ordered By: Rachel Navarrete Activity on Discharge: No heavy lifting Stand Alone Forms: Patient Portal Discharge page Care Plan Goals: weight loss Health Concerns: obesity Plan of Treatment: No tub baths, sex or returning to work until discussed at first post op appointment. No exercise, alcohol, tobacco or illegal drug use. Continue to use incentive spirometer hourly while awake. Walk in home for 5- 10 minutes every 2 hours during the first week. Continue phase 1 diet today and start phase 2 diet tomorrow morning. Follow all instructions in the bariatric handbook and call with any questions. 1. Please call your doctor or come back to the emergency room should any new symptoms arise. 2. You will receive a courtesy call from [facility] 24-48 hours after discharge. 3. Activity: abstain from alcohol, practice limited stair climbing, no bending, no driving, no exercise, no illicit substances, no lifting, no sex, no tub bath, no work. 4. Diet: continue as discussed with bariatric team.. 5. Dressing Change/Wound Care: Do not change or remove surgical dressings unless they are wet or soiled. 6. Call your doctor if: - Your temperature exceeds 101.5 F - You experience excessive pain or swelling - You have an unexpected reaction to medication - You have excessive bleeding - You experience continued vomiting/nausea - Your incision begins to separate - Your incision shows signs of infection such as increased redness, swelling, excessive pain, heat, or drainage (light blood or clear fluid is normal) 7. General instructions: No lifting greater than 5 lbs for the next 4 weeks[address] driving within 24 hours of taking narcotic pain medications. If you do not move your bowels in the next 2 days, please take milk of magnesia over the counter. Please follow the post op diet and do not advance your diet until you are seen in the office in about 2 weeks. Please walk around your home every hour or two to prevent blood clots from forming in your legs. You do not need to wake from sleeping to walk. Please sleep in a bed or couch to prevent kinking at the hips and knees. Please take your incentive spirometer (your lung supervisor drying) home with you and use it for the next few days to prevent pneumonias. You may shower, no hot tubs, baths or swimming pools. Please call the office with any questions or concerns such as increasing abdominal pain, fever, chills, shortness of breath, chest pain, leg pain or swelling, or redness or drainage from your incisions. Do not hesitate to contact the office with any questions at . The patient's medical history has been reviewed and they are considered low risk for post op DVT and therefore DVT prophylaxis is not considered necessary. Travel after surgery was reviewed. The patient has not disclosed any travel plans during the first 30 days after surgery and they have been advised that within the first 30 days after surgery any bus, plane, train or car travel over 2 hours in duration is contraindicated due to the possibility of developing blood clots from immobility. Any travel, needs to include periods of ambulation of 10 minutes in duration every 2 hours. The patient was instructed to discuss any plans for travel during this period with their bariatric surgeon. Assessment: stable, post op sleeve gastrectomy Discharge Date/Time: 08/11/22 14:23
[2022-08-10] MEDS: ceFAZolin Sodium/Dextrose,Iso 2 GM/50 ML PIGGYBACK IV ×2 (11:52→17:41)
[2022-08-10 14:33] LABS: Vitamin A 25 mcg/dL (38-98)
[2022-08-10] MEDS: Acetaminophen 1,000 MG/100 ML PIGGYBACK 400 MG IV (15:25)
[2022-08-10] MEDS: Famotidine/PF 20 MG/2 ML VIAL IVPUSH ×2 (16:30→20:45)
[2022-08-10 16:40] LABS: Hematocrit 34.6 % (37.0-47.0); Hemoglobin 11.3 g/dl (12.0-16.0)
[2022-08-10] MEDS: Lactated Ringers 1,000 ML 100 ML IVCONT (16:59)
[2022-08-10 17:00] LABS: Anion Gap 17 (12-20); Blood Urea Nitrogen 7 mg/dL (9-16); Calcium 8.7 mg/dL (8.4-10.2); Carbon Dioxide 20 mmol/L (22-29); Chloride 104 mmol/L (96-108); Creatinine Clr Calc Pharmacy 139.9; Estimated Glomerular Filt Rate > 60; Glucose Random 149 mg/dL (60-115); Potassium 3.8 mmol/L (3.3-5.1); Sodium 137 mmol/L (135-145)
[2022-08-10] MEDS: Acetaminophen 1,000 MG/100 ML PIGGYBACK 16.7 MG IV (20:45)
[2022-08-10] MEDS: 0.9 % Sodium Chloride Flush 3 ML SYRINGE IVFLUSH (20:45)
[2022-08-10] MEDS: ondansetron HCL 4 MG/2 ML VIAL IVPUSH (20:45)
[2022-08-10] MEDS: Metoclopramide HCl 10 MG/2 ML VIAL IVPUSH (23:27)
[2022-08-11] MEDS: Acetaminophen 1,000 MG/100 ML PIGGYBACK 16.7 MG IV (02:27)
[2022-08-11] MEDS: Lactated Ringers 1,000 ML 100 ML IVCONT (02:29)
[2022-08-11 03:19] VITALS: BP 136/68; PULSE 90; RESP 18; TEMP 36.8; O2SAT 95
[2022-08-11] MEDS: ondansetron HCL 4 MG/2 ML VIAL IVPUSH ×2 (03:19→12:05)
[2022-08-11] MEDS: Famotidine/PF 20 MG/2 ML VIAL IVPUSH (07:08)
[2022-08-11 07:32] LABS: MANUAL DIFF FLAG NO
[2022-08-11 07:39] LABS: Basophils Percent Auto 0.3 % (0-2); Eosinophils Percent Auto 0.1 % (0-4); Hematocrit 33.5 % (37.0-47.0); Hemoglobin 10.6 g/dl (12.0-16.0); Imm Gran Abs Auto 0.03 X10*3/uL (0.00-0.03); Imm Gran Pct Auto 0.3 % (0.0-0.4); Lymphocytes Absolute Auto 1.7 X10*3/uL (1.2-4.9); Lymphocytes Percent Auto 14.9 % (20-40); Mean Corpuscular HGB Conc 31.6 g/dl (31.0-35.0); Mean Corpuscular Volume 85.2 fL (80.0-98.0); Mean Platelet Volume 9.4 fL (9.4-12.3); Monocytes Absolute Auto 0.9 X10*3/uL (0.1-1.2); Monocytes Percent Auto 7.7 % (2-11); Neutrophils Absolute Auto 8.9 x10*3/uL (2.0-8.3); Neutrophils Percent Auto 76.7 % (45-73); Platelet Count 380 X10*3/uL (160-400); Red Blood Count 3.93 X10*6/uL (4.20-5.50); Red Cell Distribution Width 13.9 % (11.0-16.0); White Blood Count 11.6 X10*3/uL (4.8-10.8)
[2022-08-11 07:44] VITALS: BP 138/67; PULSE 93; RESP 18; TEMP 37; O2SAT 95
[2022-08-11 07:48] VITALS: BP 116/56; PULSE 64; RESP 20; TEMP 36.3; O2SAT 96
[2022-08-11 07:55] LABS: Anion Gap 14 (12-20); Blood Urea Nitrogen 5 mg/dL (9-16); Calcium 8.4 mg/dL (8.4-10.2); Carbon Dioxide 22 mmol/L (22-29); Chloride 107 mmol/L (96-108); Creatinine Clr Calc Pharmacy 121.1; Estimated Glomerular Filt Rate > 60; Glucose Random 97 mg/dL (60-115); Sodium 139 mmol/L (135-145)
--- NOTE | 2022-08-11 10:05 | P.PNGS_ITS ---
Subjective Subjective Date of Service: 08/11/22 Patient reports: feels better and tolerating liquids well Interval history: The patient was seen this morning at approximately 07:10. She denied any nausea, vomiting or regurgitation. Her pain is adequately controlled and she was tolerating sips of water. She denied any chest pain or difficulty breathing Physical Exam Vital Signs: Vital Signs: Last Vital Signs Temp 97.4 F 08/11/22 07:48 Pulse 64 08/11/22 07:48 Resp 20 08/11/22 07:48 BP 116/56 L 08/11/22 07:48 Pulse Ox 96 08/11/22 07:48 O2 Del Method 08/11/22 07:48 O2 Flow Rate 2 08/10/22 19:32 BMI result Body Mass Index 39.6 Patient is nontoxic and in good spirits Sclera anicteric She is having no respiratory issues Abdominal dressings are clean and intact under her binder. Objective Data Active Medications Famotidine (Famotidine/Pf 20 Mg/2 Ml Vial) 20 mg IVPUSH BID [facility] Last Admin: 08/11/22 07:08 Dose: 20 mg Documented By: NOEMI Fentanyl (Fentanyl Citrate/Pf 100 Mcg/2 Ml Vial) 25 mcg IVPUSH Q5M PRN; Protocol PRN Reason: Pain, Moderate (Pain Scale 4-6 Hydromorphone HCl (Hydromorphone Hcl 0.5 Mg/0.5 Ml Syringe) 0.25 mg IVPUSH Q5M PRN; Protocol PRN Reason: Pain, Severe (Pain Scale 7-10) Hydromorphone HCl (Hydromorphone Hcl 0.5 Mg/0.5 Ml Syringe) 0.25 mg IVPUSH Q4H PRN; Protocol PRN Reason: Pain, Moderate (Pain Scale 4-6 Lactated Ringer's (Lr) 1,000 mls @ 100 mls/hr IVCONT .Q10H [facility] Last Admin: 08/11/22 02:29 Dose: 100 mls/hr Documented By: CHARLIE Acetaminophen (Ofirmev) 1,000 mg in 100 mls @ 16.7 mls/hr IV .Q6H [facility] Last Infusion: 08/11/22 09:08 Dose: 0 mls/hr Documented By: EDMOND Metoclopramide HCl (Metoclopramide Hcl 10 Mg/2 Ml Vial) 10 mg IVPUSH Q6H PRN PRN Reason: Nausea Last Admin: 08/10/22 23:27 Dose: 10 mg Documented By: CHARLIE Ondansetron HCl (Ondansetron Hcl 4 Mg/2 Ml Vial) 4 mg IVPUSH Q8H [facility] Last Admin: 08/11/22 03:19 Dose: 4 mg Documented By: CHARLIE Sodium Chloride (0.9 % Sodium Chloride Flush 3 Ml Syringe) 3 ml IVFLUSH QSHIFT [facility] Last Admin: 08/11/22 06:29 Dose: Not Given Documented By: EDMOND Non-Admin Reason: IV Running Labs 08/11/22 07:04 08/11/22 07:04 Labs: Laboratory Results - last 24 hr 08/05/22 08/10/22 08/11/22 10:30 16:31 07:04 MCV 85.2 MCH 27.0 MCHC 31.6 RDW 13.9 Plt Count 380 MPV 9.4 Immature Gran % (Auto) 0.3 Neut % (Auto) 76.7 H Lymph % (Auto) 14.9 L [place] % (Auto) 7.7 Eos % (Auto) 0.1 Baso % (Auto) 0.3 Lymph # (Auto) 1.7 [place] # (Auto) 0.9 Eos # (Auto) 0.0 Baso # (Auto) 0.0 Abs Immat Gran (auto) 0.03 Absolute Neuts (auto) 8.9 H Absolute Nucleated RBC 0.000 Nucleated RBC % (auto) 0.0 Anion Gap 17 Estim Creat Clear Calc 139.9 Estimated GFR > 60 Random Glucose 149 H Calcium 8.7 D Vitamin A 25 L 08/11/22 07:04 MCV MCH MCHC RDW Plt Count MPV Immature Gran % (Auto) Neut % (Auto) Lymph % (Auto) [place] % (Auto) Eos % (Auto) Baso % (Auto) Lymph # (Auto) [place] # (Auto) Eos # (Auto) Baso # (Auto) Abs Immat Gran (auto) Absolute Neuts (auto) Absolute Nucleated RBC Nucleated RBC % (auto) Anion Gap 14 Estim Creat Clear Calc 121.1 Estimated GFR > 60 Random Glucose 97 Calcium 8.4 Vitamin A Procedures Date of Service Date of Service: 08/11/22 Progress Note: A&P Assessment and plan (1) S/P laparoscopic sleeve gastrectomy: Status: Acute (2) History of repair of hiatal hernia: Status: Acute (3) Umbilical hernia: Status: Acute (4) HTN (hypertension): Status: Acute (5) Asthma: Status: Acute (6) Obstructive sleep apnea treated with continuous positive airway pressure (CPAP): Status: Acute Plan Advanced to bariatric phase 2 diet Will reassess patient later today for discharge. Time Spent With Patient Time: Total time managing care of this patient today ____ minutes. Quality Stroke Does the patient have a stroke diagnosis?: No VTE Prior VTE?: No VTE Risk Level:: Surgical - moderate VTE Device Contraindication: N/A - Device Ordered VTE Drug Contraindication: Treatment Not Indicated
[2022-08-11 11:47] VITALS: BP 121/56; PULSE 94; RESP 20; TEMP 37.2; O2SAT 94
--- NOTE | 2022-08-11 14:31 | MHC.CM.PN ---
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 PT REPORTS PFIZER X4, PCP NAME JENNY AND REPORTED SHE WOULD LIKE TO COMPLETE A HCP HOWEVER PT DISCHARGED OFF UNIT PRIOR TO SIGNING. PT D/C'D HOME TODAY W/FAMILY FOR TRANSPORT
--- NOTE | 2022-08-11 15:34 | HO.POSTANES ---
Post Anesthesia Evaluation Post Anesthesia Evaluation Vital Signs: Vital Signs Temp Pulse Resp BP Pulse Ox O2 Del Method 08/11/22 11:47 98.9 F 94 20 121/56 L 94 Room Air 08/11/22 07:48 97.4 F 64 20 116/56 L 96 Room Air 08/11/22 07:44 98.6 F 93 18 138/67 95 Room Air Anesthesia: General Endotracheal-GETA Mental Status: Awake Pain Control: Satisfactory Nausea/Vomiting: None Hydration: Adequate Anesthesia-Related Issues: No Anes. Related Issues
[2022-08-11 15:58] LABS: Vitamin B1 20 nmol/L (8-30)
== END 2022-08-11 14:23 | disposition home or self-care (01) | DRG 403 ==
LOC: HO.SSSA 11:06 → HO.S3 16:21
PROVIDERS: Physician Assistant; Physician Assistant Surgical; Admitting Provider Surgery; PCP Internal Medicine Geriatric Medicine; Visit Provider Surgery
PROC: 0DB64Z3 Excision of Stomach, Percutaneous Endoscopic Approach, Vertical (ICD-10-PCS; CPT 43845; principal; 2022-08-10 10:20)
DX: E66.01 Morbid (severe) obesity due to excess calories (principal); K75.81 Nonalcoholic steatohepatitis (NASH); K44.0 Diaphragmatic hernia with obstruction, without gangrene; T85.528A Displacement of other gastrointestinal prosthetic devices, implants and grafts, initial encounter; G47.33 Obstructive sleep apnea (adult) (pediatric); K66.0 Peritoneal adhesions (postprocedural) (postinfection); K21.9 Gastro-esophageal reflux disease without esophagitis; J45.909 Unspecified asthma, uncomplicated; R73.03 Prediabetes; Z20.822 Contact with and (suspected) exposure to COVID-19; Z68.39 Body mass index [BMI] 39.0-39.9, adult; Z88.6 Allergy status to analgesic agent; Z88.8 Allergy status to other drugs, medicaments and biological substances; Z79.899 Other long term (current) drug therapy
CPT/HCPCS: 36415; 80048; 80053; 80061; 82306; 82607; 82728; 83036; 83540; 83970; 84425; 84443; 84590; 84630; 85014; 85018; 85025; 85610; 85730; 86140; 86850; 86900; 86901; 87635; 88307; 88342; C9088; J0131; J0690; J1170; J2250; J2370; J2405; J2550; J2765; J3010

== ENCOUNTER → 2022-08-17 13:57 | Outpatient (BNVA) | payer MEDICAID, SELFPAY | PROVIDERS: PCP Internal Medicine Geriatric Medicine; Visit Provider Physician Assistant | DX: Z13.89 Encounter for screening for other disorder (principal) ==

== ENCOUNTER → 2022-08-26 11:56 | Outpatient (BNVA) | payer MEDICAID, SELFPAY | PROVIDERS: PCP Internal Medicine Geriatric Medicine; Referring Provider Internal Medicine Geriatric Medicine; Visit Provider Physician Assistant | DX: Z13.89 Encounter for screening for other disorder (principal) ==

== ENCOUNTER → 2022-09-15 13:46 | Outpatient (BNVA) | payer MEDICAID, SELFPAY | PROVIDERS: PCP Internal Medicine Geriatric Medicine; Visit Provider Physician Assistant ==

== ENCOUNTER → 2022-10-07 09:52 | Outpatient (BNVA) | payer MEDICAID, SELFPAY | PROVIDERS: PCP Internal Medicine Geriatric Medicine; Visit Provider Physician Assistant ==

== ENCOUNTER 2022-10-11 11:41 | Outpatient (REF) | payer MEDICAID, SELFPAY ==
--- NOTE | ~2022-10-11 | MM_ITS ---
EXAMINATION: MM SCREENING DIGITAL BREAST TOMOSYNTHESIS, BILATERAL CLINICAL INFORMATION: Screening. Asymptomatic. The lifetime risk of breast cancer based on the Tyrer-Cuzick Model is 7%. COMPARISON: Mammography: 10/05/2021, 05/24/2019, 05/09/2018 TECHNIQUE: Digital breast tomosynthesis is performed in both the craniocaudal and mediolateral oblique views along with computer-aided detection (CAD). Synthesized 2D images are generated from the tomosynthesis. Additional bilateral CC and left MLO views are obtained. FINDINGS: The breasts are almost entirely fatty (ACR BI-RADS breast composition Category a). There are no significant masses, abnormal calcifications, or other abnormalities. Parenchymal pattern is similar to prior studies. There is no developing density or architectural abnormality. The axilla and skin contours are unremarkable. No significant changes. MM/MM tomosynthesis screening BI IMPRESSION: No mammographic evidence of malignancy. ASSESSMENT: BI-RADS 1: Negative RECOMMENDATION: Routine annual mammography screening. This patient's information was entered into a reminder system with a target due date for their next mammogram.
== END 2022-10-11 11:42 | disposition home or self-care (01) ==
LOC: HO.MAMMO 11:41
PROVIDERS: PCP Internal Medicine Geriatric Medicine; Visit Provider Advanced Practice Midwife
DX: Z12.31 Encounter for screening mammogram for malignant neoplasm of breast (principal)
CPT/HCPCS: 77063; 77067

== ENCOUNTER → 2022-11-04 09:41 | Outpatient (BNVA) | payer MEDICAID, SELFPAY | PROVIDERS: PCP Internal Medicine Geriatric Medicine; Visit Provider Physician Assistant | DX: K21.9 Gastro-esophageal reflux disease without esophagitis (principal); K44.9 Diaphragmatic hernia without obstruction or gangrene; K42.9 Umbilical hernia without obstruction or gangrene; R73.03 Prediabetes; E51.9 Thiamine deficiency, unspecified; Z68.33 Body mass index [BMI] 33.0-33.9, adult; Z90.49 Acquired absence of other specified parts of digestive tract; Z90.3 Acquired absence of stomach [part of] | CPT/HCPCS: 99212 ==

== ENCOUNTER → 2022-11-25 10:10 | Outpatient (BNVA) | payer MEDICAID, SELFPAY | PROVIDERS: PCP Internal Medicine Geriatric Medicine; Visit Provider Dietitian, Registered | DX: E66.9 Obesity, unspecified (principal); Z68.32 Body mass index [BMI] 32.0-32.9, adult | CPT/HCPCS: 97803 ==

== ENCOUNTER → 2022-12-30 14:28 | Outpatient (BNVA) | payer MEDICAID, SELFPAY | PROVIDERS: PCP Internal Medicine Geriatric Medicine; Visit Provider Physician Assistant ==

== ENCOUNTER 2023-02-06 10:19 | Outpatient (AMB) | payer MEDICAID, SELFPAY ==
--- NOTE | 2023-02-06 10:00 | MHC.OFFVISWM ---
Intake VS Expanded 02/06/23 10:06 Height 5 ft 4 in Weight 185 lb BMI 31.8 Intake Visit Reasons: VIDEO PO LSG 08/10/22 Allergies ibuprofen [From Motrin] Allergy (Intermediate, Verified 11/04/22 09:50) Rash naproxen [Naprosyn] Allergy (Intermediate, Verified 11/04/22 09:50) Rash prednisone [PREDNISONE] Allergy (Intermediate, Verified 11/04/22 09:50) RASH, itching Medication List - Last Reconciled 02/06/23 by Yolanda Cueva PA-C albuterol sulfate 90 mcg/actuation (ProAir HFA) 2 puffs inhalation Q6H PRN calcium citrate-vitamin D3 315 mg-5 mcg (200 unit) (Calcium Citrate + D) 1 tab PO DAILY inulin (Fiber Gummies) 2 grams PO BID ivdohpuvllix-twi-hfew-FA-vit K 45 mg iron- 800 mcg-120 mcg (Bariatric Multivitamins) caps PO DAILY HPI HPI Comments History of Present Illness Details Pt is now 6 months s/p LSG. [employer] weight of 257.8, has gained 1 lb since last month - due to lack of exercise per patient. meal plan 2 shakes of Pure protein with unsweetened almond milk 6pm - 2 oz lean protein and 2 oz vegetable Exercise - none for the last month where she was it was too hot. Post op complications: none AURELIANO: resolved DM resolved HTN: resolved Hyperlipidemia: resolved GERD: 0 Satisfaction with present condition - satisfied [facility] Medical History (Updated 12/30/22 @ 13:56 by Yolanda Cueva PA-C) Acid reflux Asthma Diaphragmatic hernia Dyspareunia in female Fatigue GERD (gastroesophageal reflux disease) Heavy menstrual bleeding Hiatal hernia HTN (hypertension) Obstructive sleep apnea treated with continuous positive airway pressure (CPAP) Pre-diabetes Prediabetes Umbilical hernia Vitamin B1 deficiency Vitamin deficiency Surgical History History of delivery History of cholecystectomy History of endoscopy History of tubal ligation History of umbilical hernia repair (10/06/17) Family History Father No problems noted. Mother Diabetes Hypertension FH: mental illness Maternal Grandmother Hypertension Maternal Uncle Cancer Leukemia Family/Other FH: mental illness Son No problems noted. Son Asthma Glaucoma Son No problems noted. Sister FH: mental illness High cholesterol Brother High cholesterol Social History (Reviewed 11/04/22 @ 09:51 by Maya Mejia [facility]) Are you a primary customer care manager to a significant other at home: No Do you presently have visiting nurse or other home services: No Alcohol intake: never Patient Tobacco Use Status: Never used Tobacco service: No Current occupational status: employed Physical Exam GI Inspection: Yes incision (all completely healed) Assessment & Plan Assessment & Plan (1) Obesity: Code(s): E66.9 - Obesity, unspecified Plan: 6 months post op no complications doing very well. she stopped exercise while in a hot climate and knows that she needs to restart now. She will do either treadmill fro 400 calories or MM 45 minute videos 5d/ week and abd exercises 20 lbs 3 sets of 15 reps. Will add 1 oz of fruit to her dinner meal, no other changes. Post op labs ordered today, she will do them first days of March. Next appt with in 3 months and with Fatmata in 6 weeks. Patient is still obese and is not considered stable at this time. I spent 20 minutes in total speaking with the patient via video conference counseling , reviewing records and charting in patients chart. . (2) S/P laparoscopic sleeve gastrectomy: Code(s): Z98.84 - Bariatric surgery status Orders: Orders Vitamin B12 and Folate Today E66.9 - Obesity, unspecified, Z98.84 - Bariatric surgery status Comprehensive Met. Panel Today E66.9 - Obesity, unspecified, Z98.84 - Bariatric surgery status C Reactive Protein Today E66.9 - Obesity, unspecified, Z98.84 - Bariatric surgery status Ferritin Today E66.9 - Obesity, unspecified, Z98.84 - Bariatric surgery status Hemoglobin A1c Today E66.9 - Obesity, unspecified, Z98.84 - Bariatric surgery status Insulin Today E66.9 - Obesity, unspecified, Z98.84 - Bariatric surgery status IRON PROFILE Today E66.9 - Obesity, unspecified, Z98.84 - Bariatric surgery status Lipid Panel Today E66.9 - Obesity, unspecified, Z98.84 - Bariatric surgery status PTHI Today E66.9 - Obesity, unspecified, Z98.84 - Bariatric surgery status TSH reflex Free T4 Today E66.9 - Obesity, unspecified, Z98.84 - Bariatric surgery status Vitamin A Today E66.9 - Obesity, unspecified, Z98.84 - Bariatric surgery status Vitamin B1 Today E66.9 - Obesity, unspecified, Z98.84 - Bariatric surgery status Vitamin D 25-OH Total Today E66.9 - Obesity, unspecified, Z98.84 - Bariatric surgery status Zinc Today E66.9 - Obesity, unspecified, Z98.84 - Bariatric surgery status Complete Blood Count Auto Diff Today E66.9 - Obesity, unspecified, Z98.84 - Bariatric surgery status Telehealth Telehealth Location of provider rendering services: practice address Location of patient: address on file Telehealth method: video Patient verbally consented to treatment: Yes Patient verbally consented to billing insurance company: Yes Patient informed of any privacy concerns related to visit: Yes Coding Level of Care Code Tele Est Pt Level 3 (00393) Diagnoses Obesity E66.9 S/P laparoscopic sleeve gastrectomy Z98.84
[2023-02-06 10:06] VITALS: BMI 31.8
== END 2023-02-06 10:22 | disposition home or self-care (01) ==
LOC: HO.HBS 10:19
PROVIDERS: PCP Internal Medicine Geriatric Medicine; Visit Provider Physician Assistant
DX: E66.9 Obesity, unspecified (principal); Z98.84 Bariatric surgery status
CPT/HCPCS: 99213

== ENCOUNTER → 2023-02-06 10:19 | Outpatient (BNVA) | payer MEDICAID, SELFPAY | PROVIDERS: PCP Internal Medicine Geriatric Medicine; Visit Provider Physician Assistant | DX: E66.9 Obesity, unspecified (principal); Z98.84 Bariatric surgery status ==

== ENCOUNTER 2023-03-15 10:06 | Outpatient (REF) | payer MEDICAID, SELFPAY ==
[2023-03-15 11:17] LABS: MANUAL DIFF FLAG NO
[2023-03-15 12:38] LABS: Basophils Percent Auto 0.6 % (0-2); Eosinophils Absolute Auto 0.1 X10*3/uL (0.0-0.4); Eosinophils Percent Auto 1.5 % (0-4); Hematocrit 39.9 % (37.0-47.0); Hemoglobin 13.5 g/dl (12.0-16.0); Imm Gran Abs Auto 0.01 X10*3/uL (0.00-0.03); Imm Gran Pct Auto 0.2 % (0.0-0.4); Lymphocytes Percent Auto 31.1 % (20-40); Mean Corpuscular HGB Conc 33.8 g/dl (31.0-35.0); Mean Corpuscular Volume 85.6 fL (80.0-98.0); Mean Platelet Volume 9.5 fL (9.4-12.3); Monocytes Absolute Auto 0.4 X10*3/uL (0.1-1.2); Monocytes Percent Auto 6.4 % (2-11); Neutrophils Percent Auto 60.2 % (45-73); Platelet Count 321 X10*3/uL (160-400); Red Blood Count 4.66 X10*6/uL (4.20-5.50); Red Cell Distribution Width 13.1 % (11.0-16.0); White Blood Count 6.6 X10*3/uL (4.8-10.8)
[2023-03-15 13:02] LABS: Estimated Average Glucose 97 mg/dL
[2023-03-15 14:00] LABS: Alanine Aminotransferase 16 U/L (0-31); Albumin Level 4.2 g/dL (3.5-5.0); Alkaline Phosphatase 45 U/L (39-117); Anion Gap 13 (12-20); Aspartate Amino Transferase 16 U/L (5-31); Bilirubin Total 0.5 mg/dL (0.0-1.0); Blood Urea Nitrogen 13 mg/dL (9-16); C Reactive Protein 0.12 mg/dL (< or = 0.50); Calcium 9.9 mg/dL (8.4-10.2); Carbon Dioxide 24 mmol/L (22-29); Chloride 107 mmol/L (96-108); Cholesterol 196 mg/dL (<200); Estimated Glomerular Filt Rate > 60; Glucose Random 85 mg/dL (60-115); HDL Cholesterol 55 mg/dL (>40); Iron 67 mcg/dL (30-160); LDL Cholesterol Calculated 124 mg/dL (<100); Percent Iron Saturation 23 % (15-50); Sodium 140 mmol/L (135-145); Total Iron Binding Capacity 286 mcg/dL (228-428); Total Protein 7.6 g/dL (6.5-8.0); Triglycerides 89 mg/dL (<150); Unsaturated Iron Binding 219 ug/dL
[2023-03-15 14:09] LABS: Ferritin 22 ng/mL (10-250); Insulin 6 uU/mL (2-29); TSH reflex Free T4 0.63 uIU/mL (0.32-4.0); Vitamin D 25-OH Total 57.5 ng/mL (>30)
[2023-03-15 14:21] LABS: Folate 17.3 ng/mL (> or = 4.0); Vitamin B12 1092 pg/mL (200-900)
[2023-03-17 15:54] LABS: Calcium (PTHI) 9.3 mg/dL (8.6-10.2); PTHI 22 pg/mL (16-77)
[2023-03-18 15:27] LABS: Zinc 83 mcg/dL (60-130)
[2023-03-20 16:33] LABS: Vitamin A 35 mcg/dL (38-98)
[2023-03-21 00:28] LABS: Vitamin B1 29 nmol/L (8-30)
== END 2023-03-15 10:07 | disposition home or self-care (01) ==
LOC: HO.HHCL 10:06
PROVIDERS: Absent Provider Physician Assistant; PCP Internal Medicine Geriatric Medicine; Visit Provider Internal Medicine Geriatric Medicine
DX: E66.9 Obesity, unspecified (principal); Z13.220 Encounter for screening for lipoid disorders; Z98.84 Bariatric surgery status
CPT/HCPCS: 36415; 80053; 80061; 82306; 82607; 82728; 82746; 83036; 83525; 83540; 83970; 84425; 84443; 84590; 84630; 85025; 86140

== ENCOUNTER → 2023-04-05 13:07 | Outpatient (BNVA) | payer OTHER, SELFPAY | PROVIDERS: PCP Internal Medicine Geriatric Medicine; Visit Provider Physician Assistant ==

== ENCOUNTER 2024-03-17 04:51 | Inpatient (IN) | payer MEDICAID, SELFPAY ==
[2024-03-17] VITALS (19 sets, daily range): BP systolic 90–128; BP diastolic 52–98; PULSE 67–129; RESP 12–20; TEMP 36.8–37; O2SAT 95–100; BMI 34.3
--- NOTE | 2024-03-17 | ECG_ITS ---
Test Reason : TACHY Blood Pressure : / mmHG Vent. Rate : 124 BPM Atrial Rate : 124 BPM P-R Int : 158 ms QRS Dur : 072 ms QT Int : 310 ms P-R-T Axes : 057 -22 046 degrees QTc Int : 445 ms Sinus tachycardia Cannot rule out Anterior infarct , age undetermined Abnormal ECG When compared with ECG of 08-NOV-2021 11:34, Vent. rate has increased BY 46 BPM Nonspecific T wave abnormality has replaced inverted T waves in Inferior leads Heart rate has increased Referred By: Generic ED Physician Electronically Signed By:AGUSTINA GARCIA
--- NOTE | ~2024-03-17 | NM_ITS ---
RADIONUCLIDE GASTROINTESTINAL BLEEDING STUDY CLINICAL INDICATION: Active GI bleed. COMPARISON: CT scan of the abdomen and pelvis done on 03/17/2024 and 03/19/2024. PROCEDURE: Following the bolus intravenous administration of 25.0 millicuries technetium 99m labeled autologous red blood cells, rapid sequence dynamic gamma scintillation camera images were obtained over the abdomen and pelvis for an initial observation interval of 60 minutes. Subsequent sequential static images were then obtained anterior, [place] and [place] projection over the abdomen and pelvis. FINDINGS: No abnormal accumulations of activity are seen in the abdomen or pelvis. NM/NM GI bleeding IMPRESSION: No gastrointestinal hemorrhage is identified. Electronically signed by: Reba Nayak MD 03/21/2024 03:12 PM EDT
--- NOTE | ~2024-03-17 | CT_ITS ---
EXAMINATION: CT ABDOMEN AND PELVIS WITHOUT AND WITH CONTRAST CLINICAL INFORMATION: Bloody stool, epigastric pain COMPARISON: CT abdomen and pelvis 04/09/2017 TECHNIQUE: Multidetector volumetric imaging was performed of the abdomen and pelvis before and after the IV administration of 85 mL of Omnipaque 350 intravenous contrast. Sagittal and coronal reformatted images were obtained on the technologist's workstation. This CT examination was performed using dose optimization techniques as appropriate, variously including the following: *Automated exposure control *Adjustment of mA and/or kV according to patient size (this includes techniques or standardized protocols for targeted exams where dose is matched to indication/reason for exam; i.e. extremities or head) *Use of iterative reconstruction technique DLP: 2171 mGy-cm FINDINGS: LUNG BASES: Unremarkable. LIVER AND BILIARY TREE: Mildly dilated bile duct, measuring up to 9 mm in diameter, likely related to postcholecystectomy state. Liver otherwise unremarkable. GALLBLADDER: Status post cholecystectomy. PANCREAS: Unremarkable. SPLEEN: Unremarkable. ADRENAL GLANDS: Unremarkable. KIDNEYS AND URETERS: Unremarkable. GASTROINTESTINAL TRACT: Status post sleeve gastrectomy. Small sliding esophageal hiatal hernia. Moderate scattered sigmoid predominant colonic diverticulosis without evidence of diverticulitis. No intrinsic hyperdensity within the small and large bowel lumen. No active GI bleeding identified. Normal appendix. VASCULAR: Minimal aortoiliac calcific atherosclerosis. LYMPH NODES: Mild inflammatory fat stranding about the mesenteric root and upper mesentery, with prominent but nonenlarged mesenteric lymph nodes. PERITONEUM: No ascites. BLADDER: Unremarkable. PELVIC VISCERA: Unremarkable. ABDOMINAL AND PELVIC WALL: Moderate fat and fluid containing periumbilical abdominal wall hernia measuring 5.9 x 5.1 cm (series 6, image 461). OSSEOUS STRUCTURES: Mild multilevel degenerative thoracolumbar spondylosis with a few scattered vertebral body intraosseous hemangiomas. CT/CT gi bleed abd pel wo/w IVcon IMPRESSION: 1. No evidence of active GI bleeding, or other acute abnormality of the abdomen and pelvis. 2. Mild hazy fat stranding about the mesenteric root and upper mesentery, with prominent but nonenlarged mesenteric lymph nodes, nonspecific but may be seen in the clinical setting of mesenteric panniculitis, which can be a source for abdominal pain. 3. Moderate fat and fluid containing periumbilical abdominal wall hernia. 4. Moderate scattered sigmoid predominant colonic diverticulosis without evidence of diverticulitis. Electronically signed by: Sanket Solorzano MD 03/17/2024 09:20 AM EDT
--- NOTE | ~2024-03-17 | CT_ITS ---
EXAMINATION: CT ABDOMEN AND PELVIS WITHOUT AND WITH CONTRAST CLINICAL INFORMATION: GI bleed COMPARISON: GI bleeding study 03/17/2024 TECHNIQUE: Multidetector volumetric imaging was performed of the abdomen and pelvis before and after the IV administration of 85 mL of Omnipaque 350 intravenous contrast. 2 sets of post contrast images were performed, one during the arterial phase and one after a 2 minute delay. Sagittal and coronal reformatted images were obtained on the technologist's workstation. This CT examination was performed using dose optimization techniques as appropriate, variously including the following: *Automated exposure control *Adjustment of mA and/or kV according to patient size (this includes techniques or standardized protocols for targeted exams where dose is matched to indication/reason for exam; i.e. extremities or head) *Use of iterative reconstruction technique DLP: 1559 mGy-cm FINDINGS: LUNG BASES: The visualized lung bases are unremarkable. LIVER, GALLBLADDER, AND BILIARY TREE: Patient status post cholecystectomy with mildly prominent central and common bile ducts which can be normal. The liver is normal in size, shape, and attenuation. No focal hepatic lesion or biliary ductal dilatation is present. PANCREAS: Unremarkable SPLEEN: Unremarkable ADRENAL GLANDS: There is nodular thickening of the left adrenal gland which is unchanged compared to prior . The right adrenal gland is unremarkable. KIDNEYS AND URETERS: The kidneys are normal in size, shape, and attenuation. No hydronephrosis, hydroureter, or calculi seen. No perinephric stranding. BLADDER: Unremarkable GASTROINTESTINAL TRACT: Patient is status post gastric sleeve. There is colonic diverticulosis without diverticulitis. The small and large bowel are unremarkable. There is no extravasation of contrast into bowel lumen to indicate active GI bleeding at the time of the CT scan. The appendix is unremarkable. ABDOMINAL WALL: A periumbilical hernia containing fat is once again seen with a small amount of fluid and some fat stranding. LYMPH NODES: No retroperitoneal lymphadenopathy. Is a single left para-aortic lymph node present measuring 1.1 cm in short axis dimension, unchanged dating back to 2017. VASCULAR: Calcific atherosclerotic changes are present in the aorta and iliofemoral vessels. There is no evidence of an abdominal aortic aneurysm. PELVIC VISCERA: The uterus and adnexa are unremarkable. OSSEOUS STRUCTURES: Degenerative changes are present spine. Hemangioma is present in the T12 as well as L3 vertebral body. CT/CT gi bleed abd pel wo/w IVcon IMPRESSION: 1. No evidence of active GI bleeding at the time of the scan. 2. Incidental note made of cholecystectomy, gastric sleeve, colonic diverticulosis without diverticulitis and a periumbilical hernia containing fat. Fleischner guidelines were followed. Electronically signed by: Keenan Macias MD 03/19/2024 08:32 PM EDT
--- NOTE | 2024-03-17 05:00 | ED_ITS ---
HPI - Abdominal Pain General Chief Complaint: GI Bleed Stated Complaint: ABD Pain Time Seen by Provider: 03/17/24 05:00 Source: patient, family, RN notes reviewed and paid intern Mode of arrival: ambulatory Limitations: language barrier History of Present Illness ED Provider: Toma Ramires PA-C HPI narrative: This is a 48-year-old luxembourgish speaking female, with a history of anemia, asthma, and hypertension, who presents emergency department with complaints of abdominal pain and bloody stools which started this morning. Patient states that approximately at 4:00 a.m. this morning she was woken by abdominal pain. She went to the bathroom and had multiple episodes of diarrhea and states that her last episode was bloody with clots. She denies history of similar symptoms in the past. She states that the abdominal pain comes and goes, and describes this as a squeezing sensation. She states that this morning after having a bowel movement she felt as though she was going to pass out. She does endorse some nausea. She states that yesterday she had a stomach ache however otherwise was eating and drinking okay. MD elicited complaint: abdominal pain Exacerbating factors: nothing Relieving factors: nothing Associated symptoms: denies other symptoms Related Data Home Medications ?Medication ?Instructions ?Recorded ?Confirmed ferrous sulfate 325 mg (65 mg 325 mg PO DAILY 03/17/24 03/17/24 iron) tablet,delayed release pantoprazole 40 mg tablet,delayed 40 mg PO BID 03/17/24 03/17/24 release Previous Rx's ?Medication ?Instructions ?Recorded calcium citrate 315 mg-vitamin D3 1 tab PO DAILY #60 tabs 12/01/22 5 mcg (200 unit) tablet (Calcium Citrate + D) vitamin A palmitate 3,000 mcg 3,000 mcg PO DAILY #30 caps 03/21/23 (10,000 unit) capsule Allergies Allergy/AdvReac Type Severity Reaction Status Date / Time ibuprofen [From Motrin] Allergy Intermediate Rash Verified 03/17/24 05:08 naproxen [Naprosyn] Allergy Intermediate Rash Verified 03/17/24 05:08 prednisone [PREDNISONE] Allergy Intermediate RASH, Verified 03/17/24 05:08 itching Review of Systems Review of Systems Yes all other systems are reviewed and are negative Constitutional: Reports as per [facility] Past Medical History Attestation statement: The following information was validated with the patient. Medical History Pre-diabetes GERD (gastroesophageal reflux disease) Hiatal hernia HTN (hypertension) Vitamin deficiency Fatigue Diaphragmatic hernia Dyspareunia in female Heavy menstrual bleeding Vitamin B1 deficiency Prediabetes Obstructive sleep apnea treated with continuous positive airway pressure (CPAP) Asthma Acid reflux Umbilical hernia Surgical History History of delivery History of endoscopy History of umbilical hernia repair (10/06/17) History of cholecystectomy History of tubal ligation Family History Family History Father No problems noted. Mother Diabetes Hypertension FH: mental illness Maternal Grandmother Hypertension Maternal Uncle Cancer Leukemia Family/Other FH: mental illness Son No problems noted. Son Asthma Glaucoma Son No problems noted. Sister FH: mental illness High cholesterol Brother High cholesterol Social History Social History Are you a primary palliative care specialist to a significant other at home: No Do you presently have visiting nurse or other home services: No Alcohol intake: never Patient Tobacco Use Status: Never used Tobacco Smoked in Last 30 Days: No Use of substances other than those prescribed or required for medical reasons: No Advance Directives: No Advance Directives Information Provided: No Do you have a plan to hurt others: No Plan Nutrition Risks: No Nutritional Risk service: No Current occupational status: employed Physical Exam ED Vital Signs: Vital Signs - 24 hr 03/17/24 05:06 03/17/24 06:15 03/17/24 07:30 Temperature 98.6 F 98.4 F Pulse Rate 125 H 100 90 Respiratory Rate 18 14 15 Blood Pressure 108/67 97/67 114/75 Pulse Oximetry 95 96 99 Oxygen Delivery Method Room Air Room Air Room Air 03/17/24 08:16 03/17/24 09:07 03/17/24 09:30 Temperature Pulse Rate 81 73 79 Respiratory Rate 18 12 14 Blood Pressure 106/72 107/67 102/64 Pulse Oximetry 98 100 97 Oxygen Delivery Method Room Air Room Air Room Air 03/17/24 10:12 03/17/24 10:32 03/17/24 10:59 Temperature 98.5 F 98.5 F Pulse Rate 102 H 76 Respiratory Rate 18 18 Blood Pressure 98/63 92/56 L 90/63 Pulse Oximetry 100 Oxygen Delivery Method Room Air 03/17/24 11:07 03/17/24 11:14 03/17/24 12:00 Temperature 98.5 F Pulse Rate 75 74 76 Respiratory Rate 12 14 20 Blood Pressure 104/69 105/66 104/60 Pulse Oximetry 97 100 Oxygen Delivery Method Room Air Room Air BMI result Body Mass Index 34.3 Const General: cooperative, comfortable and no acute distress Orientation/consciousness: patient oriented x3 Limitations: no limitations HENMT Head: Yes normal to inspection, Yes normocephalic and Yes atraumatic Ears: hearing grossly normal bilaterally General nose exam: Normal external nose present Face and sinus: Yes normal facial exam Mouth: Normal oral and palatal mucosa present, oropharynx normal and moist mucous membranes Throat: Yes posterior oropharynx normal Eyes General: appearance normal, both eyes and all related structures Eyelids: Yes eyelids normal Conjunctivae: conjunctivae normal Sclerae: sclerae normal Pupils: Equal, round and reactive pupils present EOM: EOMs intact bilaterally Neck Neck: Yes normal visual inspection, Yes full ROM and Yes no lymphadenopathy Lymphatic: no lymphadenopathy noted Chest Chest palpation & inspection: normal inspection of the chest Resp Effort & Inspection: normal respiratory effort and able to speak in complete sentences Auscultation: clear to auscultation bilaterally, no crackles, no rales, no rhonchi and no wheezes Cardio Rate: regular rate Rhythm: regular rhythm Heart sounds: S1 normal heart sound present and S2 normal heart sound present GI Other: Abdomen is soft, with tenderness to palpation in the epigastrium, no rebound, no guarding Inspection: Yes normal to inspection Skin General skin exam: no rashes or lesions noted Trauma: no lacerations or abrasions Wounds: no wounds Neuro General: patient oriented x3 and moves all extremities Cranial nerves: Yes Equal, round and reactive pupils present Extrem General: Yes normal to inspection Right upper extremity: normal to inspection Left upper extremity: normal to inspection Right lower extremity: normal to inspection Left lower extremity: normal to inspection Course Reevaluation(s) Reevaluation #1: Consulted with Dr. Olivo pending CT scan. Time: 09:25 Reevaluation #2: CT reviewed as no active GI bleeding, there is mild hazy fat stranding at the mesenteric root and upper mesentery, with prominent but nonenlarged mesenteric lymph nodes, there is moderate fat and fluid containing periumbilical abdominal wall hernia, there is moderate scattered sigmoid predominant colonic diverticulosis without evidence of diverticulitis. Will admit to medicine for diverticular bleed with no active bleed. Time: 09:44 Reevaluation #3: Spoke to hospitalist, transfer of care initiated. Time: 10:06 Additional Reevaluation(s): 03/17/2024 - blood pressure down to 90/63, given that her H&H dropped about 1 point, will give 1 unit of PRBC, discussed with my attending, Dr. Castellon who is in agreement. Dr. Valverde made aware. Medical Decision Making Medical Decision Making [facility] Narrative: This is a 48-year-old female, with a history of hypertension, anemia, and asthma, who presents emergency department with complaints of abdominal pain and bloody diarrhea since this morning. On arrival, patient nontoxic appearing, blood pressure 108/67, pulse 125, all other vital signs within normal limits. Abdomen is soft, with tenderness palpation in the epigastrium. Patient had a bowel movement revealing bright red blood diarrhea. This is concerning for a lower GI bleed. Labs were obtained prior to my assessment, she is anemic with an H&H of 10.5/31.5, chemistry revealing an elevated BUN at 18, creatinine 0.64. Will obtain CT GI bleed steady, also added type and screen blood work, IV fluids, IV Protonix and pepcid. Discussed case with my attending physician, Dr. Castellon. Differential Diagnosis Differential Diagnoses: The differential diagnosis associated with the presentation includes Admission/Observation Consideration of admission/observation: Escalation of care including admission/observation considered Lab Data [facility] Lab Attestation statement: I reviewed the patient's lab results. 03/17/24 16:55 03/17/24 05:19 Labs: Lab Results 03/17/24 03/17/24 03/17/24 Range/Units 05:19 08:04 08:05 WBC 6.6 (4.8-10.8) X10*3/uL RBC 3.58 L D (4.20-5.50) X10*6/uL Hgb 10.5 L D (12.0-16.0) g/dl Hct 31.5 L D (37.0-47.0) % MCV 88.0 (80.0-98.0) fL MCH 29.3 (27.0-33.0) pg MCHC 33.3 (31.0-35.0) g/dl RDW 11.5 (11.0-16.0) % Plt Count 308 (160-400) X10*3/uL MPV 9.1 L (9.4-12.3) fL Immature Gran % (Auto) 0.3 (0.0-0.4) % Neut % (Auto) 57.2 (45-73) % Lymph % (Auto) 34.1 (20-40) % Nobles % (Auto) 5.1 (2-11) % Eos % (Auto) 2.4 (0-4) % Baso % (Auto) 0.9 (0-2) % Lymph # (Auto) 2.3 (1.2-4.9) X10*3/uL Nobles # (Auto) 0.3 (0.1-1.2) X10*3/uL Eos # (Auto) 0.2 (0.0-0.4) X10*3/uL Baso # (Auto) 0.1 (0.0-0.2) X10*3/uL Abs Immat Gran (auto) 0.02 (0.00-0.03) X10*3/uL Absolute Neuts (auto) 3.8 (2.0-8.3) x10*3/uL Absolute Nucleated RBC 0.000 (0.0-0.012) X10*3/uL Nucleated RBC % (auto) 0.0 (0.0-0.2) /100WBC PT 12.5 (11.1-13.3) SEC INR 1.0 (0.9-1.1) Sodium 142 (135-145) mmol/L Potassium 3.9 (3.3-5.1) mmol/L Chloride 109 H (96-108) mmol/L Carbon Dioxide 26 (22-29) mmol/L Anion Gap 11 L (12-20) BUN 18 H (9-16) mg/dL Creatinine 0.64 (0.5-1.4) mg/dL Estim Creat Clear Calc 124.4 Estimated GFR > 60 Random Glucose 138 H (60-115) mg/dL Calcium 8.9 D (8.4-10.2) mg/dL Total Bilirubin 0.3 (0.0-1.0) mg/dL AST 12 (5-31) U/L ALT 12 (0-31) U/L Alkaline Phosphatase 40 (39-117) U/L Total Protein 6.2 L (6.5-8.0) g/dL Albumin 3.4 L (3.5-5.0) g/dL Stool Occult Blood POSITIVE (NEGATIVE) Stl C. cayetanensis PCR Not Detected (Not Detect.) Stool Rotavirus A PCR Not Detected (Not Detect.) Stl Adenov F 40/41 PCR Not Detected (Not Detect.) Stool Astrovirus (PCR) Not Detected (Not Detect.) Stool Campylobacter PCR Not Detected (Not Detect.) Stool Cryptosporidium PCR Not Detected (Not Detect.) Stl Sh Tox Pr E STEC PCR Not Detected (Not Detect.) Stool E coli O157 PCR Not applicable (Not Detect.) Stl Enterotoxigenic E PCR Not Detected (Not Detect.) Stool EPEC (PCR) Not Detected (Not Detect.) Stool EAEC (PCR) Not Detected (Not Detect.) Stl E. histolytica PCR Not Detected (Not Detect.) Stool Giardia Lamblia PCR Not Detected (Not Detect.) Stl P. shigelloides PCR Not Detected (Not Detect.) Stool Salmonella PCR Not Detected (Not Detect.) Stool Sapovirus (PCR) Not Detected (Not Detect.) Stl Shigella/EIEC PCR Not Detected (Not Detect.) St Y.enterocolitica PCR Not Detected (Not Detect.) Stool Vibrio (PCR) Not Detected (Not Detect.) Stl Vibrio cholerae PCR Not Detected (Not Detect.) Stl Norovirus GI/GII PCR Not Detected (Not Detect.) C. difficile Tox B Gene NEGATIVE (Negative) Blood Type O Negative Antibody Screen NEGATIVE Crossmatch See Detail 03/17/24 Range/Units 08:32 WBC 6.6 (4.8-10.8) X10*3/uL RBC 3.28 L (4.20-5.50) X10*6/uL Hgb 9.6 L (12.0-16.0) g/dl Hct 29.3 L (37.0-47.0) % MCV 89.3 (80.0-98.0) fL MCH 29.3 (27.0-33.0) pg MCHC 32.8 (31.0-35.0) g/dl RDW 11.6 (11.0-16.0) % Plt Count 239 (160-400) X10*3/uL MPV 9.1 L (9.4-12.3) fL Immature Gran % (Auto) 0.3 (0.0-0.4) % Neut % (Auto) 76.8 H (45-73) % Lymph % (Auto) 17.5 L (20-40) % Nobles % (Auto) 4.2 (2-11) % Eos % (Auto) 0.6 (0-4) % Baso % (Auto) 0.6 (0-2) % Lymph # (Auto) 1.2 (1.2-4.9) X10*3/uL Nobles # (Auto) 0.3 (0.1-1.2) X10*3/uL Eos # (Auto) 0.0 (0.0-0.4) X10*3/uL Baso # (Auto) 0.0 (0.0-0.2) X10*3/uL Abs Immat Gran (auto) 0.02 (0.00-0.03) X10*3/uL Absolute Neuts (auto) 5.1 (2.0-8.3) x10*3/uL Absolute Nucleated RBC 0.000 (0.0-0.012) X10*3/uL Nucleated RBC % (auto) 0.0 (0.0-0.2) /100WBC PT (11.1-13.3) SEC INR (0.9-1.1) Sodium (135-145) mmol/L Potassium (3.3-5.1) mmol/L Chloride (96-108) mmol/L Carbon Dioxide (22-29) mmol/L Anion Gap (12-20) BUN (9-16) mg/dL Creatinine (0.5-1.4) mg/dL Estim Creat Clear Calc Estimated GFR Random Glucose (60-115) mg/dL Calcium (8.4-10.2) mg/dL Total Bilirubin (0.0-1.0) mg/dL AST (5-31) U/L ALT (0-31) U/L Alkaline Phosphatase (39-117) U/L Total Protein (6.5-8.0) g/dL Albumin (3.5-5.0) g/dL Stool Occult Blood (NEGATIVE) Stl C. cayetanensis PCR (Not Detect.) Stool Rotavirus A PCR (Not Detect.) Stl Adenov F 40/41 PCR (Not Detect.) Stool Astrovirus (PCR) (Not Detect.) Stool Campylobacter PCR (Not Detect.) Stool Cryptosporidium PCR (Not Detect.) Stl Sh Tox Pr E STEC PCR (Not Detect.) Stool E coli O157 PCR (Not Detect.) Stl Enterotoxigenic E PCR (Not Detect.) Stool EPEC (PCR) (Not Detect.) Stool EAEC (PCR) (Not Detect.) Stl E. histolytica PCR (Not Detect.) Stool Giardia Lamblia PCR (Not Detect.) Stl P. shigelloides PCR (Not Detect.) Stool Salmonella PCR (Not Detect.) Stool Sapovirus (PCR) (Not Detect.) Stl Shigella/EIEC PCR (Not Detect.) St Y.enterocolitica PCR (Not Detect.) Stool Vibrio (PCR) (Not Detect.) Stl Vibrio cholerae PCR (Not Detect.) Stl Norovirus GI/GII PCR (Not Detect.) C. difficile Tox B Gene (Negative) Blood Type Antibody Screen Crossmatch Radiology Impression Discussion of test interpretation with radiology: I have reviewed the radiologist's reading. External Record Review External record reviewed: Inpatient record, Office record, Outpatient record, Prior outpatient labs, Prior outpatient radiology, Primary care record and Outside ED record Medications Administered Generic Name Dose Route Start Last Admin Trade Name Freq PRN Reason Stop Dose Admin Pantoprazole Sodium 40 mg 03/17/24 16:30 03/17/24 16:21 Pantoprazole Sodium 40 Mg/10 Ml Vial IVPUSH 40 mg BID@[id number],1630 TEA Administration Sodium Chloride 3 ml 03/17/24 16:00 03/17/24 16:21 0.9 % Sodium Chloride Flush 3 Ml Syringe IVFLUSH 3 ml QSHIFT TEA Administration Discontinued Medications Generic Name Dose Route Start Last Admin Trade Name Freq PRN Reason Stop Dose Admin Famotidine 20 mg 03/17/24 07:16 03/17/24 07:30 Famotidine/Pf 20 Mg/2 Ml Vial IVPUSH 03/17/24 07:17 20 mg ONCE ONE Administration Sodium Chloride 1,000 mls @ 999 mls/hr 03/17/24 07:16 03/17/24 08:58 Ns IV 03/17/24 08:16 Infused .Q1H1M ONE Infusion Sodium Chloride 1,000 mls @ 999 mls/hr 03/17/24 10:30 03/17/24 12:10 Ns IV 03/17/24 11:30 Infused .Q1H1M ONE Infusion Sodium Chloride 100 mls @ 100 mls/hr 03/17/24 10:34 03/17/24 14:30 Ns IV 03/17/24 11:33 Infused ONCE ONE Infusion Iohexol 85 ml 03/17/24 08:00 03/17/24 08:00 Iohexol 350 Mg/Ml 100 Ml Infus..Btl IV 03/17/24 08:01 85 ml ONCE ONE Administration Pantoprazole Sodium 80 mg 03/17/24 07:34 03/17/24 07:59 Pantoprazole Sodium 40 Mg/10 Ml Vial IVPUSH 03/17/24 07:35 80 mg ONCE ONE Administration Polyethylene Glycol/Electrolytes 4,000 ml 03/17/24 14:15 03/17/24 15:39 Peg 3350/Na Sulf,Bicarb,Cl/Kcl 4,000 Ml Soln.Recon PO 03/17/24 14:16 4,000 ml ONCE ONE Administration Critical Care Time Critical Care Time Critical Care Time: Yes Total Critical Care Time: 45 Attestation: I have personally provided critical care time exclusive of time spent on separately billable procedures. Time includes review of lab data, radiology results, discussion with consultants, and monitoring for potential decompensation. Intervention performed as documented. Discharge Plan Discharge Clinical Impression: GI (gastrointestinal bleed) Patient Disposition: Admitted As Inpatient
[2024-03-17 05:37] LABS: Basophils Absolute Auto 0.1 X10*3/uL (0.0-0.2); Basophils Percent Auto 0.9 % (0-2); Eosinophils Absolute Auto 0.2 X10*3/uL (0.0-0.4); Eosinophils Percent Auto 2.4 % (0-4); Hematocrit 31.5 % (37.0-47.0); Hemoglobin 10.5 g/dl (12.0-16.0); Imm Gran Abs Auto 0.02 X10*3/uL (0.00-0.03); Imm Gran Pct Auto 0.3 % (0.0-0.4); Lymphocytes Absolute Auto 2.3 X10*3/uL (1.2-4.9); Lymphocytes Percent Auto 34.1 % (20-40); MANUAL DIFF FLAG NO; Mean Corpuscular HGB Conc 33.3 g/dl (31.0-35.0); Mean Corpuscular Hemoglobin 29.3 pg (27.0-33.0); Mean Platelet Volume 9.1 fL (9.4-12.3); Monocytes Absolute Auto 0.3 X10*3/uL (0.1-1.2); Monocytes Percent Auto 5.1 % (2-11); Neutrophils Absolute Auto 3.8 x10*3/uL (2.0-8.3); Neutrophils Percent Auto 57.2 % (45-73); Platelet Count 308 X10*3/uL (160-400); Red Blood Count 3.58 X10*6/uL (4.20-5.50); Red Cell Distribution Width 11.5 % (11.0-16.0); White Blood Count 6.6 X10*3/uL (4.8-10.8)
[2024-03-17 05:42] LABS: Prothrombin Time 12.5 SEC (11.1-13.3)
[2024-03-17 05:52] LABS: Alanine Aminotransferase 12 U/L (0-31); Albumin Level 3.4 g/dL (3.5-5.0); Alkaline Phosphatase 40 U/L (39-117); Anion Gap 11 (12-20); Aspartate Amino Transferase 12 U/L (5-31); Bilirubin Total 0.3 mg/dL (0.0-1.0); Blood Urea Nitrogen 18 mg/dL (9-16); Calcium 8.9 mg/dL (8.4-10.2); Carbon Dioxide 26 mmol/L (22-29); Chloride 109 mmol/L (96-108); Creatinine Clr Calc Pharmacy 124.4; Estimated Glomerular Filt Rate > 60; Glucose Random 138 mg/dL (60-115); Potassium 3.9 mmol/L (3.3-5.1); Sodium 142 mmol/L (135-145); Total Protein 6.2 g/dL (6.5-8.0)
--- NOTE | 2024-03-17 05:54 | MHC.EDTECH ---
Patient BIBA,changed into hospital attire,vitals taken,patient placed on the public service administrator,EKG taken per order and signed by provider,labs drawn and sent to lab.call seay in reach
[2024-03-17] MEDS: Famotidine/PF 20 MG/2 ML VIAL IVPUSH (07:30)
[2024-03-17] MEDS: 0.9 % Sodium Chloride 1,000 ML 999 ML IV ×2 (07:30→10:35)
--- NOTE | 2024-03-17 07:55 | PC.NURSE ---
pt noted to have liquid bm ~ 200ml w a mix of stool and justine red blood. pt endorsed dizziness after bm w HR up to 150s, stable on return to room w other vss WNL. provider aware. tech at bedside for type and screen. 1L NS running, medicated per SEP.
[2024-03-17] MEDS: Pantoprazole Sodium 40 MG/10 ML VIAL 80 MG IVPUSH (07:59)
[2024-03-17] MEDS: iohexoL 350 MG/ML 100 ML INFUS..BTL 85 ML IV (08:00)
[2024-03-17 08:14] LABS: OBS Int Ctl Valid YES; OBS1 POSITIVE (NEGATIVE)
[2024-03-17 08:35] LABS: MANUAL DIFF FLAG NO
[2024-03-17 08:36] LABS: Basophils Percent Auto 0.6 % (0-2); Eosinophils Percent Auto 0.6 % (0-4); Hematocrit 29.3 % (37.0-47.0); Hemoglobin 9.6 g/dl (12.0-16.0); Imm Gran Abs Auto 0.02 X10*3/uL (0.00-0.03); Imm Gran Pct Auto 0.3 % (0.0-0.4); Lymphocytes Absolute Auto 1.2 X10*3/uL (1.2-4.9); Lymphocytes Percent Auto 17.5 % (20-40); Mean Corpuscular HGB Conc 32.8 g/dl (31.0-35.0); Mean Corpuscular Hemoglobin 29.3 pg (27.0-33.0); Mean Corpuscular Volume 89.3 fL (80.0-98.0); Mean Platelet Volume 9.1 fL (9.4-12.3); Monocytes Absolute Auto 0.3 X10*3/uL (0.1-1.2); Monocytes Percent Auto 4.2 % (2-11); Neutrophils Absolute Auto 5.1 x10*3/uL (2.0-8.3); Neutrophils Percent Auto 76.8 % (45-73); Platelet Count 239 X10*3/uL (160-400); Red Blood Count 3.28 X10*6/uL (4.20-5.50); Red Cell Distribution Width 11.6 % (11.0-16.0); White Blood Count 6.6 X10*3/uL (4.8-10.8)
[2024-03-17 09:33] LABS: CDiff Gene PCR NEGATIVE (Negative)
[2024-03-17 10:30] LABS: Adenovirus F 40/41 Not Detected (Not Detect.); Astrovirus Not Detected (Not Detect.); Campylobacter Not Detected (Not Detect.); Cryptosporidium Not Detected (Not Detect.); Cyclospora cayetanensis Not Detected (Not Detect.); E. coli EAEC Not Detected (Not Detect.); E. coli EPEC Not Detected (Not Detect.); E. coli ETEC Not Detected (Not Detect.); E. coli STEC Not Detected (Not Detect.); Entamoeba histolytica Not Detected (Not Detect.); Giardia lamblia Not Detected (Not Detect.); Norovirus GI/GII Not Detected (Not Detect.); Plesiomonas shigelloides Not Detected (Not Detect.); Rotavirus A Not Detected (Not Detect.); Salmonella Not Detected (Not Detect.); Sapovirus Not Detected (Not Detect.); Shigella sp./EIEC Not Detected (Not Detect.); Vibrio Not Detected (Not Detect.); Vibrio Cholerae Not Detected (Not Detect.); Yersinia enterocolitica Not Detected (Not Detect.)
--- NOTE | 2024-03-17 11:19 | PM.IMHP ---
History of Present Illness Date of Service: 03/17/24 Attending physician on admission: Lisa Laureano Chief Complaint: Bloody stools, abd pain Pt is a 48-year-old Tuvaluan-speaking female with a PMH significant for mild intermittent asthma, anemia, HTN no longer on meds, GERD, and hx of bariatric surgery?in 2022 who presents to the ED with?abdominal pain and bloody diarrhea since early this morning. Patient reports yesterday she experienced some mild right-sided abdominal discomfort and one episode of loose stool, but otherwise felt well and was eating and drinking normally. This morning at approximately 04:00 patient was awakened from sleep with central abdominal pain and cramping she rates a 6/10. Patient then went to the bathroom and had multiple episodes of bloody diarrhea with clots. Patient experienced nausea but no vomiting. Was also lightheaded and dizzy. Denies fever, chills. Did not eat anything suspicious or have any sick contacts with similar symptoms. No shortness a breath, difficulty breathing, or cough. Denies chest pain/pressure, palpitations. Patient has not experienced similar symptoms in the past. In the ED pt was tachycardic up to 125 and was soft BP as low as 92/56. Labs were significant for initial H&H 10.5/31.5 with repeat 3 hours later 9.6/29.3 and stool positive for occult blood, otherwise grossly unremarkable and around baseline for patient. Leukocytosis. No significant electrolyte abnormalities. Renal and hepatic function baseline. GI panel and C diff negative. CT of abdomen and pelvis wo/w IV contrast found no evidence of active GI bleeding or other acute abnormality in abdomen or pelvis. 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 EKG demonstrated sinus tachycardia of 124 without evidence of significant ST elevations or depressions. Pt was treated with 3L IVF, Protonix, famotadine IV, and transfused 1 unit of PRBCs. Pt will be admitted to the hospital for treatment and further evaluation of painful hematochezia concerning lower GI bleed. Review of Systems Review of Systems: Abdominal pain, cramping Bloody diarrhea Nausea, no vomiting Lightheadedness and dizziness Denies fever, chills No chest pain/pressure, palpitations Denies shortness of breath, difficulty breathing or cough [facility] Medical History Pre-diabetes GERD (gastroesophageal reflux disease) Hiatal hernia HTN (hypertension) Vitamin deficiency Fatigue Diaphragmatic hernia Dyspareunia in female Heavy menstrual bleeding Vitamin B1 deficiency Prediabetes Obstructive sleep apnea treated with continuous positive airway pressure (CPAP) Asthma Acid reflux Umbilical hernia Family History Father No problems noted. Mother Diabetes Hypertension FH: mental illness Maternal Grandmother Hypertension Maternal Uncle Cancer Leukemia Family/Other FH: mental illness Son No problems noted. Son Asthma Glaucoma Son No problems noted. Sister FH: mental illness High cholesterol Brother High cholesterol Surgical History History of delivery History of endoscopy History of umbilical hernia repair (10/06/17) History of cholecystectomy History of tubal ligation Social History Are you a primary child care to a significant other at home: No Do you presently have visiting nurse or other home services: No Alcohol intake: never Patient Tobacco Use Status: Never used Tobacco Smoked in Last 30 Days: No Use of substances other than those prescribed or required for medical reasons: No Advance Directives: No Advance Directives Information Provided: No Do you have a plan to hurt others: No Plan Nutrition Risks: No Nutritional Risk service: No Current occupational status: employed Meds Allergies Allergy/AdvReac Type Severity Reaction Status Date / Time ibuprofen [From Motrin] Allergy Intermediate Rash Verified 03/17/24 05:08 naproxen [Naprosyn] Allergy Intermediate Rash Verified 03/17/24 05:08 prednisone [PREDNISONE] Allergy Intermediate RASH, Verified 03/17/24 05:08 itching Active Medications: Current Medications Sodium Chloride (Ns) 1,000 mls @ 999 mls/hr IV .Q1H1M ONE Stop: 03/17/24 11:30 Last Admin: 03/17/24 10:35 Dose: 999 mls/hr Sodium Chloride (Ns) 100 mls @ 100 mls/hr IV ONCE ONE Stop: 03/17/24 11:33 Home Medications ?Medication ?Instructions ?Recorded ?Confirmed ?Last Taken ?Type ferrous sulfate 325 mg (65 mg 325 mg PO DAILY 03/17/24 03/17/24 1 Week Ago History iron) tablet,delayed release ~03/10/24 pantoprazole 40 mg tablet,delayed 40 mg PO BID 03/17/24 03/17/24 1 Week Ago History release ~03/10/24 Physical Exam Vital Signs and Narrative: Vital Signs: Last Vital Signs Temp 98.5 F 03/17/24 11:14 Pulse 74 03/17/24 11:14 Resp 14 03/17/24 11:14 BP 105/66 03/17/24 11:14 Pulse Ox 97 03/17/24 11:07 O2 Del Method Room Air 03/17/24 11:07 BMI result Body Mass Index 34.3 Constitutional: Alert, in no acute distress. Mental Status: Oriented to person, place and time. Eyes: Pupils are equal, round, and reactive to light. Ear, Nose, and Throat: Oropharynx clear, mucous membranes moist. Ears and nose without deformities. Trachea midline. Respiratory: Clear to auscultation bilaterally. No wheezing, rales, or rhonchi. Cardiovascular: S1, S2 regular. No murmurs, rubs, or gallops. Gastrointestinal: Abdomen soft with periumbilical and epigastric tenderness. No rebounding or guarding. Reducible umbilical hernia. Normal bowel sounds. Neurologic: Cranial nerves II-XII are grossly intact bilaterally. No focal neurological deficits. Moves all extremities spontaneously. Skin: Warm, dry. Extremities: No edema. Psychiatric: Normal mood and affect. Results Labs 03/17/24 16:55 03/17/24 05:19 Labs: Laboratory Results - last 24 hr 03/17/24 03/17/24 03/17/24 05:19 08:04 08:05 MCV 88.0 MCH 29.3 MCHC 33.3 RDW 11.5 Plt Count 308 MPV 9.1 L Immature Gran % (Auto) 0.3 Neut % (Auto) 57.2 Lymph % (Auto) 34.1 [place] % (Auto) 5.1 Eos % (Auto) 2.4 Baso % (Auto) 0.9 Lymph # (Auto) 2.3 [place] # (Auto) 0.3 Eos # (Auto) 0.2 Baso # (Auto) 0.1 Abs Immat Gran (auto) 0.02 Absolute Neuts (auto) 3.8 Absolute Nucleated RBC 0.000 Nucleated RBC % (auto) 0.0 PT 12.5 INR 1.0 Anion Gap 11 L Estim Creat Clear Calc 124.4 Estimated GFR > 60 Random Glucose 138 H Calcium 8.9 D Total Bilirubin 0.3 AST 12 ALT 12 Alkaline Phosphatase 40 Total Protein 6.2 L Albumin 3.4 L Stool Occult Blood POSITIVE Stl C. cayetanensis PCR Not Detected Stool Rotavirus A PCR Not Detected Stl Adenov F 40/41 PCR Not Detected Stool Astrovirus (PCR) Not Detected Stool Campylobacter PCR Not Detected Stool Cryptosporidium PCR Not Detected Stl Sh Tox Pr E STEC PCR Not Detected Stool E coli O157 PCR Not applicable Stl Enterotoxigenic E PCR Not Detected Stool EPEC (PCR) Not Detected Stool EAEC (PCR) Not Detected Stl E. histolytica PCR Not Detected Stool Giardia Lamblia PCR Not Detected Stl P. shigelloides PCR Not Detected Stool Salmonella PCR Not Detected Stool Sapovirus (PCR) Not Detected Stl Shigella/EIEC PCR Not Detected St Y.enterocolitica PCR Not Detected Stool Vibrio (PCR) Not Detected Stl Vibrio cholerae PCR Not Detected Stl Norovirus GI/GII PCR Not Detected C. difficile Tox B Gene NEGATIVE Blood Type O Negative Antibody Screen NEGATIVE Crossmatch See Detail 03/17/24 08:32 MCV 89.3 MCH 29.3 MCHC 32.8 RDW 11.6 Plt Count 239 MPV 9.1 L Immature Gran % (Auto) 0.3 Neut % (Auto) 76.8 H Lymph % (Auto) 17.5 L [place] % (Auto) 4.2 Eos % (Auto) 0.6 Baso % (Auto) 0.6 Lymph # (Auto) 1.2 [place] # (Auto) 0.3 Eos # (Auto) 0.0 Baso # (Auto) 0.0 Abs Immat Gran (auto) 0.02 Absolute Neuts (auto) 5.1 Absolute Nucleated RBC 0.000 Nucleated RBC % (auto) 0.0 PT INR Anion Gap Estim Creat Clear Calc Estimated GFR Random Glucose Calcium Total Bilirubin AST ALT Alkaline Phosphatase Total Protein Albumin Stool Occult Blood Stl C. cayetanensis PCR Stool Rotavirus A PCR Stl Adenov F 40/41 PCR Stool Astrovirus (PCR) Stool Campylobacter PCR Stool Cryptosporidium PCR Stl Sh Tox Pr E STEC PCR Stool E coli O157 PCR Stl Enterotoxigenic E PCR Stool EPEC (PCR) Stool EAEC (PCR) Stl E. histolytica PCR Stool Giardia Lamblia PCR Stl P. shigelloides PCR Stool Salmonella PCR Stool Sapovirus (PCR) Stl Shigella/EIEC PCR St Y.enterocolitica PCR Stool Vibrio (PCR) Stl Vibrio cholerae PCR Stl Norovirus GI/GII PCR C. difficile Tox B Gene Blood Type Antibody Screen Crossmatch Imaging Radiologist's Impressions: Impressions Abdomen/Pelvis CT 03/17/24 07:41 IMPRESSION: 1. No evidence of active GI bleeding, or other acute abnormality of the abdomen and pelvis. 2. Mild hazy fat stranding about the mesenteric root and upper mesentery, with prominent but nonenlarged mesenteric lymph nodes, nonspecific but may be seen in the clinical setting of mesenteric panniculitis, which can be a source for abdominal pain. 3. Moderate fat and fluid containing periumbilical abdominal wall hernia. 4. Moderate scattered sigmoid predominant colonic diverticulosis without evidence of diverticulitis. Electronically signed by: Sanket Solorzano MD 03/17/2024 09:20 AM EDT RP Assessment and Plan (1) Hematochezia: Status: Acute Plan Pt is a 48-year-old Tuvaluan-speaking female with a PMH significant for mild intermittent asthma, anemia, HTN no longer on meds, GERD, and hx of bariatric surgery?in 2022 who presents to the ED with?abdominal pain and bloody diarrhea since early this morning. Pt will be admitted to the hospital for treatment and further evaluation of painful hematochezia concerning lower GI bleed. Hematochezia Patient with sudden onset bloody diarrhea, abdominal pain, nausea, lightheadedness since this morning Concerning for lower GI bleed of unclear etiology CT of abd wo/w cont showing no active GI bleed, though possible mesenteric panniculitis, diverticulosis without acute diverticulitis Not on blood thinners, no NSAID use Patient received IV pantoprazole, IV famotidine, and transfused 1 unit PRBCs in the ED Clear liquid diet for now, NPO after midnight for likely colonoscopy in the morning GI consult Protonix Monitor H&H q4h Monitor on telemetry Mild intermittent asthma Not in acute exacerbation Continue home inhalers HTN No longer antihypertensives since bariatric surgery Monitor BP Full Code Attending:?Dr. Laureano DVT Prophylaxis: Pneumatic compression due to concern for lower GI bleed Pt will require a hospitalization of at least two nights for treatment and further evaluation of symptomatic hematochezia concerning lower GI bleed. Patient will require close monitoring of H&H, specialist consultation with GI, and emergent colonoscopy for evaluation acute bleeding. Quality Stroke Does the patient have a stroke diagnosis?: No VTE Prior VTE?: No VTE Risk Level:: Medical - moderate - high VTE Device Contraindication: N/A - Device Ordered VTE Drug Contraindication: Treatment Not Indicated
--- NOTE | 2024-03-17 11:28 | PC.NURSE ---
provider at bedside for blood work consult w science interpreter, pt agreeable to recieving blood products. 1U PRBC running per SVEN RN at bedside for inital 15min - pt tolerated well, no itching/fevers/cp/sob.
--- NOTE | 2024-03-17 13:53 | PC.NURSE ---
Confirmed w/ admitting provider Jeremy patient is appropriate for [facility] admission
--- NOTE | 2024-03-17 13:57 | PM.EVENT ---
Event Note Date of Service: 03/17/24 Event Note: GI consult dictated Colonscopy 03/18 for evaluation of gi bleeding. Time Spent With Patient Time: Total time managing care of this patient today ____ minutes.
--- NOTE | 2024-03-17 14:05 | PC.NURSE ---
Recheck H&H rescheduled for 1630 per vebal order from Dr Laureano for ~ 2 hrs post tranfusion.
--- NOTE | 2024-03-17 14:36 | PHA.MEDREC ---
Addendum entered by Grace León RPh 03/17/24 14:46: reviewed by [facility]. Original Note: Pharmacy Consult ? Medication Reconciliation Pharmacy has completed the medication reconciliation. Utilized talent engineer services.
--- NOTE | 2024-03-17 15:25 | PC.NURSE ---
Called pharmacy RE: needing golytely, will send down
[2024-03-17] MEDS: PEG 3350/Na Sulf,Bicarb,Cl/KCL 4,000 ML SOLN.RECON 4000 ML PO (15:39)
[2024-03-17] MEDS: Pantoprazole Sodium 40 MG/10 ML VIAL IVPUSH (16:21)
[2024-03-17] MEDS: 0.9 % Sodium Chloride Flush 3 ML SYRINGE IVFLUSH (16:21)
[2024-03-17 17:22] LABS: Hematocrit 32.1 % (37.0-47.0); Hemoglobin 10.9 g/dl (12.0-16.0)
--- NOTE | 2024-03-17 18:17 | PC.NURSE ---
Spoke to patient and family member extensively w/ boilermaker industrial boilers regarding plan of care. Explained to patient she will continue to have bloody BMs, she is passing dark smelly old blood, that is okay, the body cannot absorb old blood so she has to pass it. Additionally, we are giving her medication that is used to cleanse her lower GI tract in order for her to have a clear field of vision for her colonoscopy in the am. Encouraged patient to reach out to staff if/when she becomes dizzy. Informed patient that her last blood levels (H&H) has already improved since this am, and we will continue to check her lab levels throughout the night. She will be admitted upstairs once bed is available. All questions answered, patient and family members both verbalized understanding.
--- NOTE | 2024-03-17 19:29 | PM.EVENT ---
Event Note Date of Service: 03/17/24 Event Note: Notified by nursing that patient was increasingly anxious during bowel prep after noticing continued blood in her stool. Patient seen and examined in her room where she is resting comfortably in bed. Reports abdominal pain now very mild and improved from previous. Denies lightheadedness or dizziness. Has been experiencing some dark red blood with clots in her stools, but denies any bright red blood. Bleeding appears to have improved with no reoccurrence of active bright red blood per rectum. Responded well to transfusion with increase of H&H of 10.5/32.1 from 9.6/29.3. Vitals continue to be stable: Patient afebrile, HR 71, RR 14, and BP 103/63. Will continue to trend CBC q4h and will contact GI for possible bleeding scan if any active bleeding occurs. Time Spent With Patient Time: Total time managing care of this patient today ____ minutes.
[2024-03-17 20:53] LABS: Hematocrit 29.1 % (37.0-47.0); Hemoglobin 9.9 g/dl (12.0-16.0)
--- NOTE | 2024-03-17 21:02 | PC.NURSE ---
Informed admitting provider Jeremy about H&H drop, provider aware is reaching out to GI to see if they want bleeding scan.
--- NOTE | 2024-03-17 22:11 | CONS_ITS ---
DATE OF SERVICE: 03/17/2024 HISTORY OF PRESENT ILLNESS: The patient is a pleasant 48-year-old woman, who was admitted to the hospital after presenting to the emergency department with complaints of rectal bleeding. She developed abdominal pain on the day of admission, which was localized to the right lower side of her abdomen and had loose stools that subsequently became bloody. She has no history of previous GI bleeding. She denies undergoing colonoscopy. She had some nausea, but no vomiting and some lightheadedness, but no fevers or chills. In the emergency department, she was evaluated with laboratory studies, which showed a hematocrit of 31.5. Followup hematocrit later the next day was 29.3. Evaluation also included a CT scan, which is reviewed. This shows no active GI bleeding. PAST MEDICAL HISTORY: 1. Asthma. 2. Anemia. 3. Hypertension. 4. Gastroesophageal reflux disease. 5. Elevated BMI, status post gastric sleeve surgery. CURRENT MEDICATIONS: Her current medication list is reviewed in the chart. ALLERGIES: MEDICATION ALLERGIES ARE REVIEWED. FAMILY HISTORY: This is reviewed with the patient and is noncontributory. SOCIAL HISTORY: There is no current tobacco, alcohol, or substance abuse. REVIEW OF SYSTEMS: SKIN: No pruritus. HEENT: Negative. CARDIOPULMONARY: She denies shortness of breath or chest pain. GASTROINTESTINAL: As above. GENITOURINARY: Negative. NEUROPSYCHIATRIC: Negative. PHYSICAL EXAMINATION: GENERAL: Shows a pleasant female, lying comfortably in bed. VITAL SIGNS: Reviewed in electronic medical record and are stable. The history is obtained with the use of an core loader. SKIN: Anicteric. HEENT: Shows no scleral icterus. NECK: Without lymphadenopathy or thyromegaly. LUNGS: Clear. HEART: Shows a regular rate and rhythm. S1, S2. No murmur. ABDOMEN: Soft without focal masses or tenderness. Bowel sounds are present. No organomegaly is noted. EXTREMITIES: Without edema. LABORATORY DATA AND IMAGING STUDIES: Reviewed. IMPRESSION: Gastrointestinal bleeding. Her GI bleeding appears most consistent with a lower GI bleed, likely secondary to diverticulosis. We discussed colonoscopy today including risks and benefits of the procedure. She understands these and agrees to proceed. In the interim, I would recommend continuing to monitor her hematocrit and transfusing her as needed. Thanks for asking me to see her. I will follow her in the hospital with you. MD ZAHRA Dejesus/XIOMY / [id number]
--- NOTE | 2024-03-17 23:14 | PC.NURSE ---
Care assumed of pt. Pt continues with bowel prep at this time. Denies any other needs.
[2024-03-18] VITALS (14 sets, daily range): BP systolic 101–126; BP diastolic 48–72; PULSE 60–78; RESP 14–20; TEMP 36.3–37; O2SAT 95–100; BMI 33.6
[2024-03-18 00:45] LABS: Hematocrit 27.7 % (37.0-47.0); Hemoglobin 9.5 g/dl (12.0-16.0)
[2024-03-18] MEDS: 0.9 % Sodium Chloride Flush 3 ML SYRINGE IVFLUSH ×3 (01:12→18:01)
[2024-03-18 05:02] LABS: Basophils Percent Auto 0.8 % (0-2); Eosinophils Absolute Auto 0.1 X10*3/uL (0.0-0.4); Eosinophils Percent Auto 2.2 % (0-4); Hematocrit 28.2 % (37.0-47.0); Hemoglobin 9.4 g/dl (12.0-16.0); Imm Gran Abs Auto 0.01 X10*3/uL (0.00-0.03); Imm Gran Pct Auto 0.2 % (0.0-0.4); Lymphocytes Absolute Auto 2.1 X10*3/uL (1.2-4.9); Lymphocytes Percent Auto 41.5 % (20-40); MANUAL DIFF FLAG SCAN; Mean Corpuscular HGB Conc 33.3 g/dl (31.0-35.0); Mean Corpuscular Hemoglobin 29.5 pg (27.0-33.0); Mean Corpuscular Volume 88.4 fL (80.0-98.0); Mean Platelet Volume 10.5 fL (9.4-12.3); Monocytes Absolute Auto 0.4 X10*3/uL (0.1-1.2); Monocytes Percent Auto 6.9 % (2-11); Neutrophils Absolute Auto 2.5 x10*3/uL (2.0-8.3); Neutrophils Percent Auto 48.4 % (45-73); PLT CLUMP 1; Red Blood Count 3.19 X10*6/uL (4.20-5.50); Red Cell Distribution Width 12.2 % (11.0-16.0); SCAN SMEAR FLAG 1
[2024-03-18 05:03] LABS: Platelet Count 138 X10*3/uL (160-400); White Blood Count 5.1 X10*3/uL (4.8-10.8)
[2024-03-18 05:16] LABS: Anion Gap 11 (12-20); Blood Urea Nitrogen 10 mg/dL (9-16); Calcium 8.6 mg/dL (8.4-10.2); Carbon Dioxide 25 mmol/L (22-29); Chloride 111 mmol/L (96-108); Creatinine Clr Calc Pharmacy 147.6; Estimated Glomerular Filt Rate > 60; Glucose Random 92 mg/dL (60-115); Potassium 4.1 mmol/L (3.3-5.1); Sodium 143 mmol/L (135-145)
[2024-03-18 05:19] LABS: SLIDE REVIEW VERIFIED
[2024-03-18] MEDS: Pantoprazole Sodium 40 MG/10 ML VIAL IVPUSH ×2 (06:19→18:01)
[2024-03-18 08:12] LABS: Hematocrit 29.8 % (37.0-47.0); Hemoglobin 10.1 g/dl (12.0-16.0)
[2024-03-18] MEDS: traMADoL HCL 50 MG TABLET PO (08:53)
--- NOTE | 2024-03-18 09:06 | PC.NURSE ---
Alert and oriented, aware that plan is to go to OR for colonoscopy after lunch. Medicated for complaints of a headache. No BM`s this am.
--- NOTE | 2024-03-18 11:34 | PC.NURSE ---
Patient reports headache has improved and is feeling better , family at bedside
--- NOTE | 2024-03-18 13:21 | PC.NURSE ---
Report given to SSS
--- NOTE | 2024-03-18 13:58 | PC.NURSE ---
Transferred to OR by OR staff, all belongings went with patient
--- NOTE | 2024-03-18 14:10 | P.PNIM_ITS ---
Subjective Subjective Date of Service: 03/18/24 Interval History: GIb Review of Systems says bleeding and abd pain seems improving no fevers Physical Exam 2 Vital Signs: Vital Signs: Last Vital Signs Temp 98.4 F 03/18/24 10:54 Pulse 63 03/18/24 10:54 Resp 18 03/18/24 10:54 BP 114/72 03/18/24 10:54 Pulse Ox 95 03/18/24 10:54 O2 Del Method Room Air 03/18/24 10:54 BMI result Body Mass Index 34.3 Appearance: Alert.? Oriented X3.? cvs: rrr, [id number] . res: clear to auscultation ,no rhonchii or wheezing abd: no rebound or guarding ,epigastric discomfort improving,bs present. ext pulses present , no cyanosis . neuro: axo3 , nonfocal. Objective Data Active Medications Acetaminophen (Acetaminophen 325 Mg Tablet) 650 mg PO Q6H PRN PRN Reason: Pain, Mild (Pain Scale 1-3), fever or headache Benzonatate (Benzonatate 100 Mg Capsule) 100 mg PO TID PRN PRN Reason: Cough Calcium Carbonate (Calcium Carbonate 750 Mg Tab.Chew) 750 mg PO Q4H PRN PRN Reason: Heartburn Magnesium Hydroxide (Milk Of Magnesia 30 Ml Oral.Susp) 30 ml PO DAILY PRN PRN Reason: Constipation Melatonin (Melatonin 3 Mg Tablet) 6 mg PO BEDTIME PRN PRN Reason: Insomnia Pantoprazole Sodium (Pantoprazole Sodium 40 Mg/10 Ml Vial) 40 mg IVPUSH BID@0630,4430 [facility] Last Admin: 03/18/24 06:19 Dose: 40 mg Documented By: LESLIE Sodium Chloride (0.9 % Sodium Chloride Flush 3 Ml Syringe) 3 ml IVFLUSH QSHIFT [facility] Last Admin: 03/18/24 08:55 Dose: 3 ml Documented By: MICHAEL Tramadol HCl (Tramadol Hcl 50 Mg Tablet) 50 mg PO Q4H PRN PRN Reason: Pain, Moderate(Pain Scale 4-6) Last Admin: 03/18/24 08:53 Dose: 50 mg Documented By: MICHAEL Labs 03/18/24 08:00 03/18/24 04:48 Labs: Laboratory Results - last 24 hr 03/17/24 03/18/24 08:04 04:48 MCV 88.4 MCH 29.5 MCHC 33.3 RDW 12.2 Plt Count 138 L D MPV 10.5 Immature Gran % (Auto) 0.2 Neut % (Auto) 48.4 Lymph % (Auto) 41.5 H [place] % (Auto) 6.9 Eos % (Auto) 2.2 Baso % (Auto) 0.8 Lymph # (Auto) 2.1 [place] # (Auto) 0.4 Eos # (Auto) 0.1 Baso # (Auto) 0.0 Abs Immat Gran (auto) 0.01 Absolute Neuts (auto) 2.5 Absolute Nucleated RBC 0.000 Nucleated RBC % (auto) 0.0 Smear Tech's Comments VERIFIED Anion Gap 11 L Estim Creat Clear Calc 147.6 Estimated GFR > 60 Random Glucose 92 Calcium 8.6 Crossmatch See Detail Assessment and Plan (1) Hematochezia: Status: Acute (2) GI (gastrointestinal bleed): Status: Acute Plan 48-year-old Nepali-speaking female with a PMH significant for mild intermittent asthma, anemia, HTN no longer on meds, GERD, and hx of bariatric surgery?in 2022 who presents to the ED with?abdominal pain and bloody diarrhea since early this morning. Pt will be admitted to the hospital for treatment and further evaluation of painful hematochezia concerning lower GI bleed. possible lower GIB: symptoms seems improving Concerning for lower GI bleed of unclear etiology,Not on blood thinners, no NSAID use CT of abd wo/w cont showing no active GI bleed, though possible mesenteric panniculitis, diverticulosis without acute diverticulitis. plan: s/p 1prbc-h/h iin 10 range continue IV pantoprazole, ivf , npo moniter h/h closely npo ,going for colonoscopy repeat cbc in evening Mild intermittent asthma Not in acute exacerbation Continue home inhalers HTN No longer antihypertensives since bariatric surgery Monitor BP Full Code DVT Prophylaxis: Pneumatic compression due to concern for lower GI bleed ongoing hospitalization need for treatment and further evaluation of symptomatic hematochezia concerning lower GI bleed. Patient will require close monitoring of H&H, specialist consultation with GI, and colonoscopy for evaluation acute bleeding. Quality Stroke Does the patient have a stroke diagnosis?: No VTE Prior VTE?: No VTE Risk Level:: Medical - moderate - high VTE Device Contraindication: N/A - Device Ordered VTE Drug Contraindication: Treatment Not Indicated
--- NOTE | 2024-03-18 14:11 | MHC.CM.PN ---
CM attempted to meet with pt. 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 CM to see at a later time.
--- NOTE | 2024-03-18 14:35 | P.CONAN_ITS ---
HPI - Anesthesia Eval Consult details Narrative: 48yo female patient for Colonoscopy PMFSH Active Problems Active Problems: All Active Problems Hematochezia (Acute) GI (gastrointestinal bleed) (Acute). Transfused 1u PRBC on 03/17/24 Obesity (Acute) History of repair of hiatal hernia (Acute) S/P laparoscopic sleeve gastrectomy (Acute) Fungal skin infection (Acute) Dysphagia (Acute) Hiatal hernia with gastroesophageal reflux (Acute) Morbid obesity (Acute) HTN (hypertension) (Acute) Asthma (Acute) Obstructive sleep apnea treated with continuous positive airway pressure (CPAP) (Acute) Past Medical History Medical History Pre-diabetes GERD (gastroesophageal reflux disease) Hiatal hernia HTN (hypertension) Vitamin deficiency Fatigue Diaphragmatic hernia Dyspareunia in female Heavy menstrual bleeding Vitamin B1 deficiency Prediabetes Obstructive sleep apnea treated with continuous positive airway pressure (CPAP) Asthma Acid reflux Umbilical hernia Family History Family History Father No problems noted. Mother Diabetes Hypertension FH: mental illness Maternal Grandmother Hypertension Maternal Uncle Cancer Leukemia Family/Other FH: mental illness Son No problems noted. Son Asthma Glaucoma Son No problems noted. 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 If so, by whom?: No Are you DNR?: No Advance Directives: No Advance Directives Information Provided: No Advance Directives on File: No Do you have a plan to hurt others: No Plan Recently lost weight without trying: No Nutrition Risks: No Nutritional Risk Patient : No service: No Current occupational status: employed Meds Allergies Allergy/AdvReac Type Severity Reaction Status Date / Time ibuprofen [From Motrin] Allergy Intermediate Rash Verified 03/18/24 14:06 naproxen [Naprosyn] Allergy Intermediate Rash Verified 03/18/24 14:06 prednisone [PREDNISONE] Allergy Intermediate RASH, Verified 03/18/24 14:06 itching Active Medications: Current Medications Acetaminophen (Acetaminophen 325 Mg Tablet) 650 mg PO Q6H PRN PRN Reason: Pain, Mild (Pain Scale 1-3), fever or headache Benzonatate (Benzonatate 100 Mg Capsule) 100 mg PO TID PRN PRN Reason: Cough Calcium Carbonate (Calcium Carbonate 750 Mg Tab.Chew) 750 mg PO Q4H PRN PRN Reason: Heartburn Magnesium Hydroxide (Milk Of Magnesia 30 Ml Oral.Susp) 30 ml PO DAILY PRN PRN Reason: Constipation Melatonin (Melatonin 3 Mg Tablet) 6 mg PO BEDTIME PRN PRN Reason: Insomnia Non-Formulary Medication (Calcium Citrate-Vitamin D3 [Calcium Citrate + D]) 1 tab PO DAILY [facility] Non-Formulary Medication (Ferrous Sulfate) 325 mg PO DAILY [facility] Non-Formulary Medication (Vitamin A Palmitate) 3,000 mcg PO DAILY [facility] Pantoprazole Sodium (Pantoprazole Sodium 40 Mg/10 Ml Vial) 40 mg IVPUSH BID@0630,1630 [facility] Last Admin: 03/18/24 06:19 Dose: 40 mg Sodium Chloride (0.9 % Sodium Chloride Flush 3 Ml Syringe) 3 ml IVFLUSH QSHIFT [facility] Last Admin: 03/18/24 08:55 Dose: 3 ml Tramadol HCl (Tramadol Hcl 50 Mg Tablet) 50 mg PO Q4H PRN PRN Reason: Pain, Moderate(Pain Scale 4-6) Last Admin: 03/18/24 08:53 Dose: 50 mg Home Medications ?Medication ?Instructions ?Recorded ?Confirmed ?Last Taken ?Type ferrous sulfate 325 mg (65 mg 325 mg PO DAILY 03/17/24 03/17/24 1 Week Ago History iron) tablet,delayed release ~03/10/24 pantoprazole 40 mg tablet,delayed 40 mg PO BID 03/17/24 03/17/24 1 Week Ago History release ~03/10/24 Exam Height,Weight and Vital Signs: Height 5 ft 6 in Weight 94.347 kg Last Vital Signs Temp 97.3 F 03/18/24 14:09 Pulse 65 03/18/24 14:09 Resp 14 03/18/24 14:09 BP 125/66 03/18/24 14:09 Pulse Ox 98 03/18/24 14:09 O2 Del Method Room Air 03/18/24 14:09 Pertinent Lab Results Pertinent Lab Results: Laboratory Tests 03/17/24 03/17/24 03/17/24 05:19 08:04 08:05 WBC 6.6 RBC 3.58 L D Hgb 10.5 L D Hct 31.5 L D MCV 88.0 MCH 29.3 MCHC 33.3 RDW 11.5 Plt Count 308 MPV 9.1 L Immature Gran % (Auto) 0.3 Neut % (Auto) 57.2 Lymph % (Auto) 34.1 [place] % (Auto) 5.1 Eos % (Auto) 2.4 Baso % (Auto) 0.9 Lymph # (Auto) 2.3 [place] # (Auto) 0.3 Eos # (Auto) 0.2 Baso # (Auto) 0.1 Abs Immat Gran (auto) 0.02 Absolute Neuts (auto) 3.8 Absolute Nucleated RBC 0.000 Nucleated RBC % (auto) 0.0 Smear Tech's Comments PT 12.5 INR 1.0 Sodium 142 Potassium 3.9 Chloride 109 H Carbon Dioxide 26 Anion Gap 11 L BUN 18 H Creatinine 0.64 Estim Creat Clear Calc 124.4 Estimated GFR > 60 Random Glucose 138 H Calcium 8.9 D Total Bilirubin 0.3 AST 12 ALT 12 Alkaline Phosphatase 40 Total Protein 6.2 L Albumin 3.4 L Stool Occult Blood POSITIVE Stl C. cayetanensis PCR Not Detected Stool Rotavirus A PCR Not Detected Stl Adenov F 40/41 PCR Not Detected Stool Astrovirus (PCR) Not Detected Stool Campylobacter PCR Not Detected Stool Cryptosporidium PCR Not Detected Stl Sh Tox Pr E STEC PCR Not Detected Stool E coli O157 PCR Not applicable Stl Enterotoxigenic E PCR Not Detected Stool EPEC (PCR) Not Detected Stool EAEC (PCR) Not Detected Stl E. histolytica PCR Not Detected Stool Giardia Lamblia PCR Not Detected Stl P. shigelloides PCR Not Detected Stool Salmonella PCR Not Detected Stool Sapovirus (PCR) Not Detected Stl Shigella/EIEC PCR Not Detected St Y.enterocolitica PCR Not Detected Stool Vibrio (PCR) Not Detected Stl Vibrio cholerae PCR Not Detected Stl Norovirus GI/GII PCR Not Detected C. difficile Tox B Gene NEGATIVE Blood Type O Negative Antibody Screen NEGATIVE Crossmatch See Detail 03/17/24 03/17/24 03/17/24 08:32 16:55 20:45 WBC 6.6 RBC 3.28 L Hgb 9.6 L 10.9 L 9.9 L Hct 29.3 L 32.1 L 29.1 L MCV 89.3 MCH 29.3 MCHC 32.8 RDW 11.6 Plt Count 239 MPV 9.1 L Immature Gran % (Auto) 0.3 Neut % (Auto) 76.8 H Lymph % (Auto) 17.5 L [place] % (Auto) 4.2 Eos % (Auto) 0.6 Baso % (Auto) 0.6 Lymph # (Auto) 1.2 [place] # (Auto) 0.3 Eos # (Auto) 0.0 Baso # (Auto) 0.0 Abs Immat Gran (auto) 0.02 Absolute Neuts (auto) 5.1 Absolute Nucleated RBC 0.000 Nucleated RBC % (auto) 0.0 Smear Tech's Comments PT INR Sodium Potassium Chloride Carbon Dioxide Anion Gap BUN Creatinine Estim Creat Clear Calc Estimated GFR Random Glucose Calcium Total Bilirubin AST ALT Alkaline Phosphatase Total Protein Albumin Stool Occult Blood Stl C. cayetanensis PCR Stool Rotavirus A PCR Stl Adenov F 40/41 PCR Stool Astrovirus (PCR) Stool Campylobacter PCR Stool Cryptosporidium PCR Stl Sh Tox Pr E STEC PCR Stool E coli O157 PCR Stl Enterotoxigenic E PCR Stool EPEC (PCR) Stool EAEC (PCR) Stl E. histolytica PCR Stool Giardia Lamblia PCR Stl P. shigelloides PCR Stool Salmonella PCR Stool Sapovirus (PCR) Stl Shigella/EIEC PCR St Y.enterocolitica PCR Stool Vibrio (PCR) Stl Vibrio cholerae PCR Stl Norovirus GI/GII PCR C. difficile Tox B Gene Blood Type Antibody Screen Crossmatch 03/18/24 03/18/24 03/18/24 00:38 04:48 08:00 WBC 5.1 RBC 3.19 L Hgb 9.5 L 9.4 L 10.1 L Hct 27.7 L 28.2 L 29.8 L MCV 88.4 MCH 29.5 MCHC 33.3 RDW 12.2 Plt Count 138 L D MPV 10.5 Immature Gran % (Auto) 0.2 Neut % (Auto) 48.4 Lymph % (Auto) 41.5 H [place] % (Auto) 6.9 Eos % (Auto) 2.2 Baso % (Auto) 0.8 Lymph # (Auto) 2.1 [place] # (Auto) 0.4 Eos # (Auto) 0.1 Baso # (Auto) 0.0 Abs Immat Gran (auto) 0.01 Absolute Neuts (auto) 2.5 Absolute Nucleated RBC 0.000 Nucleated RBC % (auto) 0.0 Smear Tech's Comments VERIFIED PT INR Sodium 143 Potassium 4.1 Chloride 111 H Carbon Dioxide 25 Anion Gap 11 L BUN 10 Creatinine 0.54 Estim Creat Clear Calc 147.6 Estimated GFR > 60 Random Glucose 92 Calcium 8.6 Total Bilirubin AST ALT Alkaline Phosphatase Total Protein Albumin Stool Occult Blood Stl C. cayetanensis PCR Stool Rotavirus A PCR Stl Adenov F 40/41 PCR Stool Astrovirus (PCR) Stool Campylobacter PCR Stool Cryptosporidium PCR Stl Sh Tox Pr E STEC PCR Stool E coli O157 PCR Stl Enterotoxigenic E PCR Stool EPEC (PCR) Stool EAEC (PCR) Stl E. histolytica PCR Stool Giardia Lamblia PCR Stl P. shigelloides PCR Stool Salmonella PCR Stool Sapovirus (PCR) Stl Shigella/EIEC PCR St Y.enterocolitica PCR Stool Vibrio (PCR) Stl Vibrio cholerae PCR Stl Norovirus GI/GII PCR C. difficile Tox B Gene Blood Type Antibody Screen Crossmatch Airway Mallampati Class: II TM Dist: >3cm Neck ROM: Full Loose/Missing/Broken Teeth: No (Denies broken, loose, missing teeth) Heart: RRR Lungs: CTAB Assessment and Plan Assessment Anesthesia Assessment: Anesthesia Plan Discussed and Chart Reviewed Final Anesthetic Review Family History of Problems with Anesthesia: No History of Problems with Anesthesia: No NPO: Yes ASA Class: III and Emergency Final Preanesthetic Review: No Changes in Pt Med Stat, Meds/Allgs Chart Reviewed, Consent Obtained/Reviewed and Anes Risks/Benef Reviewed Patient Risk: Intermediate Procedure Risk: Low Assessment/Block/Sedation in SS: Assess/Block/Sedation-SS Anesthetic Plan Anesthetic Plan: TIVA Disposition: Standard PACU
--- NOTE | 2024-03-18 15:28 | PM.EVENT ---
Event Note Date of Service: 03/18/24 Event Note: GI colonoscopy shows no bleeding. diverticulosis no polyps of mass rec: advance diet d/c when stable Time Spent With Patient Time: Total time managing care of this patient today ____ minutes.
--- NOTE | 2024-03-18 15:48 | OP_ITS ---
DATE OF SERVICE: 03/18/2024 SURGEON: Kameron Olivo MD INDICATIONS: Gastrointestinal bleeding. PREOPERATIVE DIAGNOSIS: POSTOPERATIVE DIAGNOSIS: PROCEDURE PERFORMED: Colonoscopy to the terminal ileum. ESTIMATED BLOOD LOSS: COMPLICATIONS: ANESTHESIA: Monitored anesthesia care. ASSISTANTS: SPECIMENS: DESCRIPTION OF PROCEDURE: A history and physical was performed. The risks and benefits of the procedure were explained to the patient and informed consent was obtained. The patient was placed in the left lateral decubitus position. A digital rectal exam was performed and was found to be normal. The Olympus pediatric video colonoscope was introduced into the rectum and advanced to the cecum. The cecum was identified by transillumination, palpation, and identification of ileocecal valve. Examination was performed and the scope was removed. She tolerated the procedure well and was returned to recovery area in stable condition. FINDINGS: The terminal ileum was examined and appeared normal. The visualized colonic mucosa was normal. There was no active bleeding. Diverticulosis was present in the sigmoid and scattered throughout the colon. No polyps were identified. Retroflexed examination shows a small internal hemorrhoids and hypertrophic anal papillae. IMPRESSION: Diverticulosis. RECOMMENDATIONS: 1. Follow up as needed. 2. Colonoscopy is recommended every 10 years for screening purposes and average-risk individuals. MD ZAHRA Dejesus/HILTONL / [id number] MTDD
--- NOTE | 2024-03-18 17:47 | PC.NURSE ---
son veena aware that his mom is still in OR and will transferred to room 450 from OR
[2024-03-18] MEDS: Acetaminophen 325 MG TABLET 650 MG PO (18:01)
[2024-03-18] MEDS: Lactated Ringers 1,000 ML 100 ML IVCONT (18:02)
[2024-03-18 19:27] LABS: Hematocrit 28.3 % (37.0-47.0); Hemoglobin 9.7 g/dl (12.0-16.0); Mean Corpuscular HGB Conc 34.3 g/dl (31.0-35.0); Mean Corpuscular Hemoglobin 29.8 pg (27.0-33.0); Mean Corpuscular Volume 87.1 fL (80.0-98.0); Platelet Count 219 X10*3/uL (160-400); Red Blood Count 3.25 X10*6/uL (4.20-5.50); Red Cell Distribution Width 11.9 % (11.0-16.0); White Blood Count 6.6 X10*3/uL (4.8-10.8)
[2024-03-19] VITALS (13 sets, daily range): BP systolic 90–128; BP diastolic 51–77; PULSE 63–103; RESP 16–20; TEMP 35.8–37.3; O2SAT 92–98
[2024-03-19] MEDS: traMADoL HCL 50 MG TABLET PO ×2 (00:18→06:19)
[2024-03-19] MEDS: 0.9 % Sodium Chloride Flush 3 ML SYRINGE IVFLUSH ×3 (00:19→15:41)
[2024-03-19] MEDS: Lactated Ringers 1,000 ML 100 ML IVCONT ×2 (03:50→12:45)
[2024-03-19] MEDS: Pantoprazole Sodium 40 MG/10 ML VIAL IVPUSH (06:19)
[2024-03-19 06:26] LABS: MANUAL DIFF FLAG NO
[2024-03-19 06:28] LABS: Hematocrit 28.2 % (37.0-47.0); Hemoglobin 9.7 g/dl (12.0-16.0); Mean Corpuscular HGB Conc 34.4 g/dl (31.0-35.0); Mean Corpuscular Volume 87.3 fL (80.0-98.0); Platelet Count 220 X10*3/uL (160-400); Red Blood Count 3.23 X10*6/uL (4.20-5.50); Red Cell Distribution Width 11.8 % (11.0-16.0); White Blood Count 4.6 X10*3/uL (4.8-10.8)
[2024-03-19 06:29] LABS: Basophils Absolute Auto 0.1 X10*3/uL (0.0-0.2); Basophils Percent Auto 1.1 % (0-2); Eosinophils Absolute Auto 0.2 X10*3/uL (0.0-0.4); Eosinophils Percent Auto 3.8 % (0-4); Hematocrit 28.2 % (37.0-47.0); Hemoglobin 9.6 g/dl (12.0-16.0); Imm Gran Abs Auto 0.01 X10*3/uL (0.00-0.03); Imm Gran Pct Auto 0.2 % (0.0-0.4); Lymphocytes Absolute Auto 1.8 X10*3/uL (1.2-4.9); Lymphocytes Percent Auto 38.7 % (20-40); Mean Corpuscular Hemoglobin 29.6 pg (27.0-33.0); Mean Platelet Volume 9.1 fL (9.4-12.3); Monocytes Absolute Auto 0.3 X10*3/uL (0.1-1.2); Monocytes Percent Auto 7.5 % (2-11); Neutrophils Absolute Auto 2.2 x10*3/uL (2.0-8.3); Neutrophils Percent Auto 48.7 % (45-73); Platelet Count 222 X10*3/uL (160-400); Red Blood Count 3.24 X10*6/uL (4.20-5.50); Red Cell Distribution Width 11.8 % (11.0-16.0); White Blood Count 4.5 X10*3/uL (4.8-10.8)
[2024-03-19 06:44] LABS: Anion Gap 12 (12-20); Blood Urea Nitrogen 8 mg/dL (9-16); Calcium 8.7 mg/dL (8.4-10.2); Carbon Dioxide 26 mmol/L (22-29); Chloride 108 mmol/L (96-108); Creatinine Clr Calc Pharmacy 148.6; Estimated Glomerular Filt Rate > 60; Glucose Random 81 mg/dL (60-115); Potassium 3.6 mmol/L (3.3-5.1); Sodium 142 mmol/L (135-145)
[2024-03-19 06:45] LABS: Anion Gap 10 (12-20); Blood Urea Nitrogen 8 mg/dL (9-16); Calcium 8.8 mg/dL (8.4-10.2); Carbon Dioxide 27 mmol/L (22-29); Chloride 109 mmol/L (96-108); Creatinine Clr Calc Pharmacy 143.1; Estimated Glomerular Filt Rate > 60; Glucose Random 82 mg/dL (60-115); Potassium 3.6 mmol/L (3.3-5.1); Sodium 142 mmol/L (135-145)
[2024-03-19] MEDS: Acetaminophen 325 MG TABLET 650 MG PO (07:47)
[2024-03-19] MEDS: Ferrous Sulfate 324 MG TABLET.DR PO (07:47)
--- NOTE | 2024-03-19 08:43 | MHC.CM.PN ---
CM met with Patient at bedside with the assist of a [facility] Receptionist Doctor'S Office. 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 Home/self care is the goal and CM has initiated and will follow for dc planning. PCP is from [facility] and referral has been made to [facility] [employer] ( self-pay). will transport to home.
--- NOTE | 2024-03-19 09:02 | HO.POSTANES ---
Post Anesthesia Evaluation Post Anesthesia Evaluation Date of Service: 03/19/24 Vital Signs: Vital Signs Temp Pulse Resp BP Pulse Ox O2 Del Method 03/19/24 04:00 97.5 F 70 16 118/56 L 95 Room Air 03/19/24 00:00 97.7 F 69 16 103/59 L 92 Room Air Anesthesia: Monitored Mental Status: Awake Pain Control: Satisfactory Nausea/Vomiting: None Hydration: Adequate Anesthesia-Related Issues: No Anes. Related Issues
--- NOTE | 2024-03-19 09:47 | PM.DS ---
DS: Providers Provider Date of Service: 03/19/24 Date of admission: 03/17/24 12:29 Primary care physician: Unknown Physician Consults: 03/17/24 12:14 Consult to Gastroenterology Routine Consulting Provider: Kameron Olivo Reason for consultation: Hematochezia DS: Diagnosis Discharge Diagnosis (1) Hematochezia: Status: Acute (2) GI (gastrointestinal bleed): Status: Acute DS: Summary Hospital Course Hospital Course: Chief Complaint: Bloody stools, abd pain Pt is a 48-year-old Croatian-speaking female with a PMH significant for mild intermittent asthma, anemia, HTN no longer on meds, GERD, and hx of bariatric surgery?in 2022 who presents to the ED with?abdominal pain and bloody diarrhea since early this morning. Patient reports yesterday she experienced some mild right-sided abdominal discomfort and one episode of loose stool, but otherwise felt well and was eating and drinking normally. This morning at approximately 04:00 patient was awakened from sleep with central abdominal pain and cramping she rates a 6/10. Patient then went to the bathroom and had multiple episodes of bloody diarrhea with clots. Patient experienced nausea but no vomiting. Was also lightheaded and dizzy. Denies fever, chills. Did not eat anything suspicious or have any sick contacts with similar symptoms. No shortness a breath, difficulty breathing, or cough. Denies chest pain/pressure, palpitations. Patient has not experienced similar symptoms in the past. In the ED pt was tachycardic up to 125 and was soft BP as low as 92/56. Labs were significant for initial H&H 10.5/31.5 with repeat 3 hours later 9.6/29.3 and stool positive for occult blood, otherwise grossly unremarkable and around baseline for patient. Leukocytosis. No significant electrolyte abnormalities. Renal and hepatic function baseline. GI panel and C diff negative. CT of abdomen and pelvis wo/w IV contrast found no evidence of active GI bleeding or other acute abnormality in abdomen or pelvis. 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 EKG demonstrated sinus tachycardia of 124 without evidence of significant ST elevations or depressions. Pt was treated with 3L IVF, Protonix, famotadine IV, and transfused 1 unit of PRBCs. Pt will be admitted to the hospital for treatment and further evaluation of painful hematochezia concerning lower GI bleed. Hospital course: Patient presented bloody stools and abdominal pain, she has undrelyhing anemia that was not worse and required no transfusion. She had colonoscopy on 03/18 with the following finding and recommendation by Dr. Olivo Finding Diverticulosis. RECOMMENDATIONS: 1. Follow up as needed. 2. Colonoscopy is recommended every 10 years for screening purposes and average-risk individuals. no further episode of bleeding, she is tolerating regular diet and will be discharged home. Time Attestation Discharge Coordination Time (in mins): 35 Quality: Safe Use of Opioids Does Pt have an Active Cancer Diagnosis on the Problem List?: No Quality: Stroke Does the patient have a stroke diagnosis?: No Physical Exam Vital Signs: Vital Signs: Last Vital Signs Temp 98.5 F 03/19/24 08:00 Pulse 63 03/19/24 08:00 Resp 16 03/19/24 08:00 BP 115/66 03/19/24 08:00 Pulse Ox 97 03/19/24 08:00 O2 Del Method Room Air 03/19/24 08:00 BMI result Body Mass Index 33.6 General: AO X 3, no acute distress Resp: CTA bilateral CVS: S1,S2,RRR GI: +BS, NT, no distention Skin: No rash Neuro: motor grossly intact Psych: appropriate affect DS: Data Data Completed and Pending Completed studies during hospitalization [Text1]: Procedures Excision of Stomach, Percutaneous Endoscopic Approach, Vertical (08/10/22) Release Omentum, Percutaneous Endoscopic Approach (08/10/22) Repair Diaphragm, Percutaneous Endoscopic Approach (08/10/22) Labs on day of discharge: Laboratory Results - last 24 hr 03/18/24 03/19/24 03/19/24 19:10 06:15 06:15 WBC 6.6 4.5 L 4.6 L RBC 3.25 L 3.24 L Hgb 9.7 L Hct 28.3 L MCV 87.1 MCH 29.8 MCHC 34.3 RDW 11.9 Plt Count 219 D MPV 9.0 L Immature Gran % (Auto) Neut % (Auto) Lymph % (Auto) [place] % (Auto) Eos % (Auto) Baso % (Auto) Lymph # (Auto) [place] # (Auto) Eos # (Auto) Baso # (Auto) Abs Immat Gran (auto) Absolute Neuts (auto) Absolute Nucleated RBC 0.000 Nucleated RBC % (auto) 0.0 Sodium Potassium Chloride Carbon Dioxide Anion Gap BUN Creatinine Estim Creat Clear Calc Estimated GFR Random Glucose Calcium 03/19/24 03/19/24 03/19/24 06:15 06:15 06:15 WBC RBC 3.23 L Hgb 9.6 L 9.7 L Hct 28.2 L 28.2 L MCV 87.0 MCH MCHC RDW Plt Count MPV Immature Gran % (Auto) Neut % (Auto) Lymph % (Auto) [place] % (Auto) Eos % (Auto) Baso % (Auto) Lymph # (Auto) [place] # (Auto) Eos # (Auto) Baso # (Auto) Abs Immat Gran (auto) Absolute Neuts (auto) Absolute Nucleated RBC Nucleated RBC % (auto) Sodium Potassium Chloride Carbon Dioxide Anion Gap BUN Creatinine Estim Creat Clear Calc Estimated GFR Random Glucose Calcium 03/19/24 03/19/24 03/19/24 06:15 06:15 06:15 WBC RBC Hgb Hct MCV 87.3 MCH 29.6 30.0 MCHC 34.0 34.4 RDW 11.8 Plt Count MPV Immature Gran % (Auto) Neut % (Auto) Lymph % (Auto) [place] % (Auto) Eos % (Auto) Baso % (Auto) Lymph # (Auto) [place] # (Auto) Eos # (Auto) Baso # (Auto) Abs Immat Gran (auto) Absolute Neuts (auto) Absolute Nucleated RBC Nucleated RBC % (auto) Sodium Potassium Chloride Carbon Dioxide Anion Gap BUN Creatinine Estim Creat Clear Calc Estimated GFR Random Glucose Calcium 03/19/24 03/19/24 03/19/24 06:15 06:15 06:15 WBC RBC Hgb Hct MCV MCH MCHC RDW 11.8 Plt Count 222 220 MPV 9.1 L 9.0 L Immature Gran % (Auto) 0.2 Neut % (Auto) 48.7 Lymph % (Auto) 38.7 [place] % (Auto) 7.5 Eos % (Auto) 3.8 Baso % (Auto) 1.1 Lymph # (Auto) 1.8 [place] # (Auto) 0.3 Eos # (Auto) 0.2 Baso # (Auto) 0.1 Abs Immat Gran (auto) 0.01 Absolute Neuts (auto) 2.2 Absolute Nucleated RBC 0.000 Nucleated RBC % (auto) Sodium Potassium Chloride Carbon Dioxide Anion Gap BUN Creatinine Estim Creat Clear Calc Estimated GFR Random Glucose Calcium 03/19/24 03/19/24 03/19/24 06:15 06:15 06:15 WBC RBC Hgb Hct MCV MCH MCHC RDW Plt Count MPV Immature Gran % (Auto) Neut % (Auto) Lymph % (Auto) [place] % (Auto) Eos % (Auto) Baso % (Auto) Lymph # (Auto) [place] # (Auto) Eos # (Auto) Baso # (Auto) Abs Immat Gran (auto) Absolute Neuts (auto) Absolute Nucleated RBC 0.000 Nucleated RBC % (auto) 0.0 0.0 Sodium 142 142 Potassium 3.6 Chloride Carbon Dioxide Anion Gap BUN Creatinine Estim Creat Clear Calc Estimated GFR Random Glucose Calcium 03/19/24 03/19/24 03/19/24 06:15 06:15 06:15 WBC RBC Hgb Hct MCV MCH MCHC RDW Plt Count MPV Immature Gran % (Auto) Neut % (Auto) Lymph % (Auto) [place] % (Auto) Eos % (Auto) Baso % (Auto) Lymph # (Auto) [place] # (Auto) Eos # (Auto) Baso # (Auto) Abs Immat Gran (auto) Absolute Neuts (auto) Absolute Nucleated RBC Nucleated RBC % (auto) Sodium Potassium 3.6 Chloride 109 H 108 Carbon Dioxide 27 26 Anion Gap 10 L BUN Creatinine Estim Creat Clear Calc Estimated GFR Random Glucose Calcium 03/19/24 03/19/24 03/19/24 06:15 06:15 06:15 WBC RBC Hgb Hct MCV MCH MCHC RDW Plt Count MPV Immature Gran % (Auto) Neut % (Auto) Lymph % (Auto) [place] % (Auto) Eos % (Auto) Baso % (Auto) Lymph # (Auto) [place] # (Auto) Eos # (Auto) Baso # (Auto) Abs Immat Gran (auto) Absolute Neuts (auto) Absolute Nucleated RBC Nucleated RBC % (auto) Sodium Potassium Chloride Carbon Dioxide Anion Gap 12 BUN 8 L 8 L Creatinine 0.55 0.53 Estim Creat Clear Calc 143.1 Estimated GFR Random Glucose Calcium 03/19/24 03/19/24 03/19/24 06:15 06:15 06:15 WBC RBC Hgb Hct MCV MCH MCHC RDW Plt Count MPV Immature Gran % (Auto) Neut % (Auto) Lymph % (Auto) [place] % (Auto) Eos % (Auto) Baso % (Auto) Lymph # (Auto) [place] # (Auto) Eos # (Auto) Baso # (Auto) Abs Immat Gran (auto) Absolute Neuts (auto) Absolute Nucleated RBC Nucleated RBC % (auto) Sodium Potassium Chloride Carbon Dioxide Anion Gap BUN Creatinine Estim Creat Clear Calc 148.6 Estimated GFR > 60 > 60 Random Glucose 82 81 Calcium 8.8 03/19/24 06:15 WBC RBC Hgb Hct MCV MCH MCHC RDW Plt Count MPV Immature Gran % (Auto) Neut % (Auto) Lymph % (Auto) [place] % (Auto) Eos % (Auto) Baso % (Auto) Lymph # (Auto) [place] # (Auto) Eos # (Auto) Baso # (Auto) Abs Immat Gran (auto) Absolute Neuts (auto) Absolute Nucleated RBC Nucleated RBC % (auto) Sodium Potassium Chloride Carbon Dioxide Anion Gap BUN Creatinine Estim Creat Clear Calc Estimated GFR Random Glucose Calcium 8.7 Discharge Plan Discharge Anticipated Discharge Date/Time: 03/19/24 09:48 Patient Disposition: Home, Self-Care Discharge Diagnosis: gib, anemia, Referrals: Physician,Unknown J [Primary Care Provider] - 1 Week Discharge Medications: No Action calcium citrate-vitamin D3 [Calcium Citrate + D] 315 mg-5 mcg (200 unit) tablet 1 tab PO DAILY Qty: 60 11RF vitamin A palmitate 3,000 mcg (10,000 unit) capsule 3,000 mcg PO DAILY Qty: 30 6RF pantoprazole 40 mg Tablet,Delayed Release (Dr/Ec) 40 mg PO BID ferrous sulfate 325 mg (65 mg iron) Tablet,Delayed Release (Dr/Ec) 325 mg PO DAILY Diet: Advance to usual diet Activity on Discharge: As tolerated Stand Alone Forms: Patient Portal Discharge page Print Language: Croatian Care Plan Goals: resolution and work up of gi bleeding Health Concerns: gi bleeding anemia diverticulosis Plan of Treatment: follow up with your doctor follow up with with your gi doctor for a repeat colonoscopy in 10 yersa Assessment: see above
--- NOTE | 2024-03-19 12:10 | PC.NURSE ---
Patient assisted to bathroom by BILINGUAL SECRETARY - HR 170's on tele and patient reports feeling dizzy. Patient escorted back to bed with this RN and BILINGUAL SECRETARY without incident. HR down to 80's, BP 128/68. Patient reports dizziness resolving since going back to bed. Patient reports while on toilet she had two bowel movements with alot of blood . Patient flushed toilet before this RN could witness. Dr Olivas notified of this patient event via tiger text. No new orders at this time.
--- NOTE | 2024-03-19 12:41 | MHC.CM.PN ---
Per MD in ROUNDS, Patient will be medically cleared for dc to home today, self care.
[2024-03-19 12:57] LABS: Hematocrit 25.6 % (37.0-47.0); Hemoglobin 8.5 g/dl (12.0-16.0); Mean Corpuscular HGB Conc 33.2 g/dl (31.0-35.0); Mean Corpuscular Hemoglobin 29.4 pg (27.0-33.0); Mean Corpuscular Volume 88.6 fL (80.0-98.0); PLT CLUMP 1; Red Blood Count 2.89 X10*6/uL (4.20-5.50); Red Cell Distribution Width 11.8 % (11.0-16.0); White Blood Count 7.1 X10*3/uL (4.8-10.8)
[2024-03-19] MEDS: Lactated Ringers 1,000 ML 125 ML IVCONT (15:41)
[2024-03-19 16:41] LABS: Hemoglobin 8.2 g/dl (12.0-16.0)
[2024-03-19] MEDS: iohexoL 350 MG/ML 100 ML INFUS..BTL IV (18:13)
--- NOTE | 2024-03-19 18:15 | PC.NURSE ---
Approximately 1515 pt tachy on tele into 140's sustained. OOB on commode at time pt reports feeling dizzy, nauseous weak. Loose bright red bloody stool at this time. Skin pale pt helped back to bed continues with symptoms head lowered and feet elevated. Pressure 90/51 c/o localized chest pain right mid center worse with deep breathing. Dr Olivas notified on unit to see patient. Labs ordered and drawn fluids increased. 1 unit PRBC's given per order tolerating well. Off unit in for CT abdomen. Symptoms improved with fluids and blood resting comfortably in bed vitals improved.
--- NOTE | 2024-03-19 18:35 | HO.PM.IMPN ---
Subjective Subjective Date of Service: 03/19/24 Interval History: f/u on gib, s/p colonoscopy yesterday with no source of bleed this morning was stable for dc but later had bloody bowel movment and happened again later on and repeat h/h has been going down Physical Exam Vital Signs: Vital Signs: Last Vital Signs Temp 98.5 F 03/19/24 16:43 Pulse 84 03/19/24 16:43 Resp 18 03/19/24 16:43 BP 116/58 L 03/19/24 16:43 Pulse Ox 98 03/19/24 15:33 O2 Del Method Room Air 03/19/24 15:33 BMI result Body Mass Index 33.6 General: AO X 3, no acute distress Resp: CTA bilateral CVS: S1,S2,RRR GI: +BS, NT, no distention Skin: No rash Neuro: motor grossly intact Psych: appropriate affect Objective Data Active Medications Acetaminophen (Acetaminophen 325 Mg Tablet) 650 mg PO Q6H PRN PRN Reason: Pain, Mild (Pain Scale 1-3), fever or headache Last Admin: 03/19/24 07:47 Dose: 650 mg Documented By: GAYATRI Benzonatate (Benzonatate 100 Mg Capsule) 100 mg PO TID PRN PRN Reason: Cough Calcium Carbonate (Calcium Carbonate 750 Mg Tab.Chew) 750 mg PO Q4H PRN PRN Reason: Heartburn Ferrous Sulfate (Ferrous Sulfate 324 Mg Tablet.Dr) 324 mg PO DAILY [facility] Last Admin: 03/19/24 07:47 Dose: 324 mg Documented By: GAYATRI Lactated Ringer's (Lr) 1,000 mls @ 100 mls/hr IVCONT .Q10H TEA Last Infusion: 03/19/24 15:40 Dose: 0 mls/hr Documented By: SCOOBY Lactated Ringer's (Lr) 1,000 mls @ 150 mls/hr IVCONT .Q6H40M [facility] Last Infusion: 03/19/24 16:23 Dose: 150 mls/hr Documented By: SCOOBY Magnesium Hydroxide (Milk Of Magnesia 30 Ml Oral.Susp) 30 ml PO DAILY PRN PRN Reason: Constipation Melatonin (Melatonin 3 Mg Tablet) 6 mg PO BEDTIME PRN PRN Reason: Insomnia Naloxone HCl (Naloxone Hcl 0.4 Mg/Ml Vial) 0.04 mg IVPUSH Q5M PRN PRN Reason: Excessive sedation or RR < 8 Pantoprazole Sodium (Pantoprazole Sodium 40 Mg/10 Ml Vial) 40 mg IVPUSH BID@0630,1630 [facility] Last Admin: 03/19/24 16:22 Dose: Not Given Documented By: SCOOBY Non-Admin Reason: Physician Held Med Sodium Chloride (0.9 % Sodium Chloride Flush 3 Ml Syringe) 3 ml IVFLUSH QSHIFT [facility] Last Admin: 03/19/24 15:41 Dose: 3 ml Documented By: SCOOBY Tramadol HCl (Tramadol Hcl 50 Mg Tablet) 50 mg PO Q4H PRN PRN Reason: Pain, Moderate(Pain Scale 4-6) Last Admin: 03/19/24 06:19 Dose: 50 mg Documented By: LEYLA Labs 03/19/24 16:27 03/19/24 06:15 Labs: Laboratory Results - last 24 hr 03/17/24 03/18/24 03/19/24 08:04 19:10 06:15 MCV 87.1 87.0 MCH 29.8 MCHC 34.3 RDW 11.9 Plt Count 219 D MPV 9.0 L Immature Gran % (Auto) Neut % (Auto) Lymph % (Auto) [place] % (Auto) Eos % (Auto) Baso % (Auto) Lymph # (Auto) [place] # (Auto) Eos # (Auto) Baso # (Auto) Abs Immat Gran (auto) Absolute Neuts (auto) Absolute Nucleated RBC 0.000 Nucleated RBC % (auto) 0.0 Anion Gap Estim Creat Clear Calc Estimated GFR Random Glucose Calcium Blood Type O Negative Antibody Screen NEGATIVE Crossmatch See Detail 03/19/24 03/19/24 03/19/24 06:15 06:15 06:15 MCV 87.3 MCH 29.6 30.0 MCHC 34.0 34.4 RDW 11.8 Plt Count MPV Immature Gran % (Auto) Neut % (Auto) Lymph % (Auto) [place] % (Auto) Eos % (Auto) Baso % (Auto) Lymph # (Auto) [place] # (Auto) Eos # (Auto) Baso # (Auto) Abs Immat Gran (auto) Absolute Neuts (auto) Absolute Nucleated RBC Nucleated RBC % (auto) Anion Gap Estim Creat Clear Calc Estimated GFR Random Glucose Calcium Blood Type Antibody Screen Crossmatch 03/19/24 03/19/24 03/19/24 06:15 06:15 06:15 MCV MCH MCHC RDW 11.8 Plt Count 222 220 MPV 9.1 L 9.0 L Immature Gran % (Auto) 0.2 Neut % (Auto) 48.7 Lymph % (Auto) 38.7 [place] % (Auto) 7.5 Eos % (Auto) 3.8 Baso % (Auto) 1.1 Lymph # (Auto) 1.8 [place] # (Auto) 0.3 Eos # (Auto) 0.2 Baso # (Auto) 0.1 Abs Immat Gran (auto) 0.01 Absolute Neuts (auto) 2.2 Absolute Nucleated RBC 0.000 Nucleated RBC % (auto) Anion Gap Estim Creat Clear Calc Estimated GFR Random Glucose Calcium Blood Type Antibody Screen Crossmatch 03/19/24 03/19/24 03/19/24 06:15 06:15 06:15 MCV MCH MCHC RDW Plt Count MPV Immature Gran % (Auto) Neut % (Auto) Lymph % (Auto) [place] % (Auto) Eos % (Auto) Baso % (Auto) Lymph # (Auto) [place] # (Auto) Eos # (Auto) Baso # (Auto) Abs Immat Gran (auto) Absolute Neuts (auto) Absolute Nucleated RBC 0.000 Nucleated RBC % (auto) 0.0 0.0 Anion Gap 10 L 12 Estim Creat Clear Calc 143.1 Estimated GFR Random Glucose Calcium Blood Type Antibody Screen Crossmatch 03/19/24 03/19/24 03/19/24 06:15 06:15 06:15 MCV MCH MCHC RDW Plt Count MPV Immature Gran % (Auto) Neut % (Auto) Lymph % (Auto) [place] % (Auto) Eos % (Auto) Baso % (Auto) Lymph # (Auto) [place] # (Auto) Eos # (Auto) Baso # (Auto) Abs Immat Gran (auto) Absolute Neuts (auto) Absolute Nucleated RBC Nucleated RBC % (auto) Anion Gap Estim Creat Clear Calc 148.6 Estimated GFR > 60 > 60 Random Glucose 82 81 Calcium 8.8 Blood Type Antibody Screen Crossmatch 03/19/24 03/19/24 06:15 12:48 MCV 88.6 MCH 29.4 MCHC 33.2 RDW 11.8 Plt Count TNP MPV TNP Immature Gran % (Auto) Neut % (Auto) Lymph % (Auto) [place] % (Auto) Eos % (Auto) Baso % (Auto) Lymph # (Auto) [place] # (Auto) Eos # (Auto) Baso # (Auto) Abs Immat Gran (auto) Absolute Neuts (auto) Absolute Nucleated RBC 0.000 Nucleated RBC % (auto) 0.0 Anion Gap Estim Creat Clear Calc Estimated GFR Random Glucose Calcium 8.7 Blood Type Antibody Screen Crossmatch Assessment and Plan (1) Hematochezia: Status: Acute (2) GI (gastrointestinal bleed): Status: Acute Plan 48/F significant for mild intermittent asthma, anemia, HTN no longer on meds, GERD, and hx of bariatric surgery?in 2022 who presents to the ED with?abdominal pain and bloody diarrhea, admitted for hematochezia, anemia underwent colonoscopy 03/28 and found to have diverticulosis but no active bleed, today 03/19 has had 2 episode of bloody bowel movment and decline in H/H, tachycardia. GIB, suspect diverticular bleed, acute blood loss anemia -no evidence of bleed on ct -obtained a cta of abdomen and pelvis -transfused 2 units of rbc -gi notified -should pt become unstable, will need to be transfer to icu -surgery consult -if bleeding scn is positive, may need to be transfered to [facility] Mild intermittent asthma -Not in acute exacerbation -Continue home inhalers HTN -No longer antihypertensives since bariatric surgery -Monitor BP Full Code DVT Prophylaxis: Pneumatic compression due to concern for lower GI bleed ongoing hospitalization need for treatment and further evaluation of symptomatic hematochezia concerning lower GI bleed. Patient will require close monitoring of H&H, specialist consultation with GI, and colonoscopy for evaluation acute bleeding. Quality Stroke Does the patient have a stroke diagnosis?: No VTE Prior VTE?: No VTE Risk Level:: Medical - moderate - high VTE Device Contraindication: N/A - Device Ordered VTE Drug Contraindication: Treatment Not Indicated
[2024-03-20] VITALS (7 sets, daily range): BP systolic 90–121; BP diastolic 56–70; PULSE 72–88; RESP 16–20; TEMP 36–36.6; O2SAT 97–100
[2024-03-20] MEDS: 0.9 % Sodium Chloride Flush 3 ML SYRINGE IVFLUSH ×4 (00:23→23:57)
--- NOTE | 2024-03-20 03:20 | PC.NURSE ---
Patient received in bed around 1845 on 03/19/24 with the first unit of PRBC transfusion in progress. Patient is AAOX4 with no complaints at time of assessment. Blood transfusion ended at 1935. VSS. No signs of transfusion reactions noted or reported. Second unit of PRBC transfused from 2305 to 0235. No transfusion reactions noted or reported. We'll continue to monitor patient.
[2024-03-20] MEDS: Lactated Ringers 1,000 ML 100 ML IVCONT (03:56)
[2024-03-20] MEDS: Pantoprazole Sodium 40 MG/10 ML VIAL IVPUSH (05:58)
[2024-03-20] MEDS: Lactated Ringers 1,000 ML 150 ML IVCONT ×3 (06:40→19:29)
--- NOTE | 2024-03-20 07:19 | PC.NURSE ---
H/H at 2248 on 03/19/24 not done. networking technician at bed side. Patient was getting her second unit of PRBC. Blood will be drawn for CBC at 0600 in AM.
--- NOTE | 2024-03-20 09:32 | P.CONGS_ITS ---
History of Present Illness Consult details Consult date: 03/20/24 Narrative: [age] year old female referred for passage of blood per rectum. She was admitted 3 days ago because of episodes of passage of blood per rectum. She says this seemed to be darker in color than fresh blood. She denied any significant abdominal pain She underwent a colonoscopy 2 days ago. There was note of diverticulosis but no evidence of any bleeding. There was no lesions seen in the colon. She says that she did not have any bleeding during her bowel prep She was about to be discharged yesterday afternoon but she noted another episode. Again, noted maroon blood with some clots. She had a little bit of pelvic discomfort at that time. She was therefore kept in the hospital There has a little bit of drift in her hemoglobin as well. Currently she feels well overall. Review of Systems 2 Constitutional: Constitutional: Denies chills and Denies fever(s) Cardiovascular: Cardiovascular: Denies chest pain, Denies dyspnea and Denies dyspnea on exertion Respiratory: Respiratory: Denies cough, Denies dyspnea and Denies dyspnea on exertion Gastrointestinal: Gastrointestinal: Reports hematochezia and Denies change in bowel habits Genitourinary: Genitourinary: Denies hematuria Musculoskeletal: Musculoskeletal: Denies back pain and Denies limited range of motion Neurologic: Denies focal weakness and Denies convulsions Psychiatric: Psychiatric: Denies depression and Denies mood swings PMFSH Past Medical History Medical History Pre-diabetes GERD (gastroesophageal reflux disease) Hiatal hernia HTN (hypertension) Vitamin deficiency Fatigue Diaphragmatic hernia Dyspareunia in female Heavy menstrual bleeding Vitamin B1 deficiency Prediabetes Obstructive sleep apnea treated with continuous positive airway pressure (CPAP) Asthma Acid reflux Umbilical hernia Family History Family History Father No problems noted. Mother Diabetes Hypertension FH: mental illness Maternal Grandmother Hypertension Maternal Uncle Cancer Leukemia Family/Other FH: mental illness Son No problems noted. Son Asthma Glaucoma Son No problems noted. Sister FH: mental illness High cholesterol Brother High cholesterol Surgical History Surgical History History of delivery History of endoscopy History of umbilical hernia repair (03/30/18) History of cholecystectomy History of tubal ligation Social History Social History Household Members: Spouse and Other Household Members Other:: mother Housing: Apartment Are you a primary healthcare translator to a significant other at home: Yes Do you presently have visiting nurse or other home services: No Alcohol intake: never Patient Tobacco Use Status: Never used Tobacco Second Hand Smoke Exposure: No service: No Current occupational status: employed Meds Allergies Allergy/AdvReac Type Severity Reaction Status Date / Time ibuprofen [From Motrin] Allergy Intermediate Rash Verified 03/18/24 14:06 naproxen [Naprosyn] Allergy Intermediate Rash Verified 03/18/24 14:06 prednisone [PREDNISONE] Allergy Intermediate RASH, Verified 03/18/24 14:06 itching Active Medications: Current Medications Acetaminophen (Acetaminophen 325 Mg Tablet) 650 mg PO Q6H PRN PRN Reason: Pain, Mild (Pain Scale 1-3), fever or headache Last Admin: 03/19/24 07:47 Dose: 650 mg Benzonatate (Benzonatate 100 Mg Capsule) 100 mg PO TID PRN PRN Reason: Cough Calcium Carbonate (Calcium Carbonate 750 Mg Tab.Chew) 750 mg PO Q4H PRN PRN Reason: Heartburn Ferrous Sulfate (Ferrous Sulfate 324 Mg Tablet.Dr) 324 mg PO DAILY [facility] Last Admin: 03/19/24 07:47 Dose: 324 mg Lactated Ringer's (Lr) 1,000 mls @ 150 mls/hr IVCONT .Q6H40M [facility] Last Admin: 03/20/24 06:40 Dose: 150 mls/hr Magnesium Hydroxide (Milk Of Magnesia 30 Ml Oral.Susp) 30 ml PO DAILY PRN PRN Reason: Constipation Melatonin (Melatonin 3 Mg Tablet) 6 mg PO BEDTIME PRN PRN Reason: Insomnia Naloxone HCl (Naloxone Hcl 0.4 Mg/Ml Vial) 0.04 mg IVPUSH Q5M PRN PRN Reason: Excessive sedation or RR < 8 Pantoprazole Sodium (Pantoprazole Sodium 40 Mg/10 Ml Vial) 40 mg IVPUSH BID@0630,1630 [facility] Last Admin: 03/20/24 05:58 Dose: 40 mg Sodium Chloride (0.9 % Sodium Chloride Flush 3 Ml Syringe) 3 ml IVFLUSH QSHIFT [facility] Last Admin: 03/20/24 00:23 Dose: 3 ml Tramadol HCl (Tramadol Hcl 50 Mg Tablet) 50 mg PO Q4H PRN PRN Reason: Pain, Moderate(Pain Scale 4-6) Last Admin: 03/19/24 06:19 Dose: 50 mg Home Medications ?Medication ?Instructions ?Recorded ?Confirmed ?Last Taken ?Type ferrous sulfate 325 mg (65 mg 325 mg PO DAILY 03/17/24 03/17/24 1 Week Ago History iron) tablet,delayed release ~03/10/24 pantoprazole 40 mg tablet,delayed 40 mg PO BID 03/17/24 03/17/24 1 Week Ago History release ~03/10/24 Physical Exam 2 Vital Signs: Vital Signs: Last Vital Signs Temp 97.1 F 03/20/24 08:00 Pulse 79 03/20/24 08:00 Resp 19 03/20/24 08:00 BP 109/65 03/20/24 08:00 Pulse Ox 100 03/20/24 08:00 O2 Del Method Room Air 03/20/24 08:00 BMI result Body Mass Index 33.6 Const: General: comfortable and no acute distress O rientation/consciousness: patient oriented x3 Neck: Neck: Yes no lymphadenopathy Resp: Auscultation: clear to auscultation bilaterally Cardio: Rhythm: regular rhythm GI: Other: Rectal exam - small hemorrhoids, internal external, no induration, no palpable mass, no tenderness, no blood on exam finger Palpation (GI): Soft to palpation, nontender and no guarding Neuro: General: patient oriented x3 Results Labs 03/21/24 06:19 03/19/24 06:15 Labs: Abnormal lab results 03/17/24 03/19/24 03/19/24 Range/Units 08:04 12:48 16:27 RBC 2.89 L (4.20-5.50) X10*6/uL Hgb 8.5 L 8.2 L (12.0-16.0) g/dl Hct 25.6 L 23.0 L (37.0-47.0) % Crossmatch See Detail Short CBC 03/19/24 03/19/24 Range/Units 12:48 16:27 WBC 7.1 (4.8-10.8) X10*3/uL Hgb 8.5 L 8.2 L (12.0-16.0) g/dl Hct 25.6 L 23.0 L (37.0-47.0) % Plt Count TNP All other labs normal. Assessment and Plan (1) Hematochezia: Status: Acute She has had 2 episodes of passage of blood per rectum, which she describes as large amounts and mostly maroonish in color. This is likely diverticular in origin She had a colonoscopy already which did not reveal any bleeding. She has had no bleeding since yesterday afternoon Hemoglobin however has drifted I would recommend continuing to monitor her. She might need an angiogram to localize bleeding and also achieve hemostasis if this bleeding is active. In the meantime, I would recommend a diet high in fiber. Her hemoglobin is to be followed closely and monitored. Procedures Date of Service Date of Service: 03/21/24
--- NOTE | 2024-03-20 09:56 | HO.PM.IMPN ---
Subjective Subjective Date of Service: 03/20/24 Interval History: f/u on gib, s/p colonoscopy yesterday with no source of bleed No further bleeding overnight. Presently hemodynamically stable Physical Exam Vital Signs: Vital Signs: Last Vital Signs Temp 97.1 F 03/20/24 08:00 Pulse 79 03/20/24 08:00 Resp 19 03/20/24 08:00 BP 109/65 03/20/24 08:00 Pulse Ox 100 03/20/24 08:00 O2 Del Method Room Air 03/20/24 08:00 BMI result Body Mass Index 33.6 General: AO X 3, no acute distress Resp: CTA bilateral CVS: S1,S2,RRR GI: +BS, NT, no distention Skin: No rash Neuro: motor grossly intact Psych: appropriate affect Objective Data Active Medications Acetaminophen (Acetaminophen 325 Mg Tablet) 650 mg PO Q6H PRN PRN Reason: Pain, Mild (Pain Scale 1-3), fever or headache Last Admin: 03/19/24 07:47 Dose: 650 mg Documented By: GAYATRI Benzonatate (Benzonatate 100 Mg Capsule) 100 mg PO TID PRN PRN Reason: Cough Calcium Carbonate (Calcium Carbonate 750 Mg Tab.Chew) 750 mg PO Q4H PRN PRN Reason: Heartburn Ferrous Sulfate (Ferrous Sulfate 324 Mg Tablet.Dr) 324 mg PO DAILY [facility] Last Admin: 03/19/24 07:47 Dose: 324 mg Documented By: GAYATRI Lactated Ringer's (Lr) 1,000 mls @ 150 mls/hr IVCONT .Q6H40M [facility] Last Admin: 03/20/24 06:40 Dose: 150 mls/hr Documented By: JOIE Magnesium Hydroxide (Milk Of Magnesia 30 Ml Oral.Susp) 30 ml PO DAILY PRN PRN Reason: Constipation Melatonin (Melatonin 3 Mg Tablet) 6 mg PO BEDTIME PRN PRN Reason: Insomnia Naloxone HCl (Naloxone Hcl 0.4 Mg/Ml Vial) 0.04 mg IVPUSH Q5M PRN PRN Reason: Excessive sedation or RR < 8 Pantoprazole Sodium (Pantoprazole Sodium 40 Mg/10 Ml Vial) 40 mg IVPUSH BID@0630,1630 [facility] Last Admin: 03/20/24 05:58 Dose: 40 mg Documented By: JOIE Sodium Chloride (0.9 % Sodium Chloride Flush 3 Ml Syringe) 3 ml IVFLUSH QSHIFT [facility] Last Admin: 03/20/24 00:23 Dose: 3 ml Documented By: JOIE Tramadol HCl (Tramadol Hcl 50 Mg Tablet) 50 mg PO Q4H PRN PRN Reason: Pain, Moderate(Pain Scale 4-6) Last Admin: 03/19/24 06:19 Dose: 50 mg Documented By: LEYLA Labs 03/19/24 16:27 03/19/24 06:15 Labs: Laboratory Results - last 24 hr 03/17/24 03/19/24 08:04 12:48 MCV 88.6 MCH 29.4 MCHC 33.2 RDW 11.8 Plt Count TNP MPV TNP Absolute Nucleated RBC 0.000 Nucleated RBC % (auto) 0.0 Blood Type O Negative Antibody Screen NEGATIVE Crossmatch See Detail Assessment and Plan (1) Hematochezia: Status: Acute (2) GI (gastrointestinal bleed): Status: Acute Plan 48/F significant for mild intermittent asthma, anemia, HTN no longer on meds, GERD, and hx of bariatric surgery?in 2022 who presents to the ED with?abdominal pain and bloody diarrhea, admitted for hematochezia, anemia underwent colonoscopy 03/28 and found to have diverticulosis but no active bleed, today 03/19 has had 2 episode of bloody bowel movment and decline in H/H, tachycardia. GIB, suspect diverticular bleed, acute blood loss anemia -transfused 2 units of rbc on 03/19 -should pt become unstable, will need to be transfer to icu -surgery consult -CTA negative for bleed -advance diet and if no further bleeding dc Mild intermittent asthma -Not in acute exacerbation -Continue home inhalers HTN -No longer antihypertensives since bariatric surgery -Monitor BP Full Code DVT Prophylaxis: Pneumatic compression due to concern for lower GI bleed ongoing hospitalization need for treatment and further evaluation of symptomatic hematochezia concerning lower GI bleed. Patient will require close monitoring of H&H, specialist consultation with GI, and colonoscopy for evaluation acute bleeding. Quality Stroke Does the patient have a stroke diagnosis?: No VTE Prior VTE?: No VTE Risk Level:: Medical - moderate - high VTE Device Contraindication: N/A - Device Ordered VTE Drug Contraindication: Treatment Not Indicated
--- NOTE | 2024-03-20 10:15 | MHC.CM.PN ---
Per ROUNDS discussion, Patient us not yet medically cleared for dc r/t complications with GIB; home is the goal and CM will continue to follow.
[2024-03-20 10:16] LABS: MANUAL DIFF FLAG NO
[2024-03-20 10:21] LABS: Basophils Absolute Auto 0.1 X10*3/uL (0.0-0.2); Basophils Percent Auto 0.8 % (0-2); Eosinophils Absolute Auto 0.1 X10*3/uL (0.0-0.4); Hematocrit 26.4 % (37.0-47.0); Hemoglobin 9.2 g/dl (12.0-16.0); Imm Gran Abs Auto 0.02 X10*3/uL (0.00-0.03); Imm Gran Pct Auto 0.3 % (0.0-0.4); Lymphocytes Absolute Auto 1.9 X10*3/uL (1.2-4.9); Lymphocytes Percent Auto 29.7 % (20-40); Mean Corpuscular HGB Conc 34.8 g/dl (31.0-35.0); Mean Corpuscular Hemoglobin 30.6 pg (27.0-33.0); Mean Corpuscular Volume 87.7 fL (80.0-98.0); Mean Platelet Volume 9.9 fL (9.4-12.3); Monocytes Absolute Auto 0.4 X10*3/uL (0.1-1.2); Monocytes Percent Auto 6.7 % (2-11); Neutrophils Absolute Auto 3.9 x10*3/uL (2.0-8.3); Neutrophils Percent Auto 60.5 % (45-73); Platelet Count 209 X10*3/uL (160-400); Red Blood Count 3.01 X10*6/uL (4.20-5.50); Red Cell Distribution Width 12.6 % (11.0-16.0); White Blood Count 6.4 X10*3/uL (4.8-10.8)
[2024-03-20] MEDS: Ferrous Sulfate 324 MG TABLET.DR PO (11:01)
[2024-03-20] MEDS: Acetaminophen 325 MG TABLET 650 MG PO ×2 (13:20→19:40)
[2024-03-20 17:19] LABS: Hematocrit 25.5 % (37.0-47.0); Hemoglobin 9.1 g/dl (12.0-16.0); Mean Corpuscular HGB Conc 35.7 g/dl (31.0-35.0); Mean Corpuscular Hemoglobin 30.7 pg (27.0-33.0); Mean Corpuscular Volume 86.1 fL (80.0-98.0); Mean Platelet Volume 9.2 fL (9.4-12.3); Platelet Count 231 X10*3/uL (160-400); Red Blood Count 2.96 X10*6/uL (4.20-5.50); Red Cell Distribution Width 12.7 % (11.0-16.0); White Blood Count 7.7 X10*3/uL (4.8-10.8)
[2024-03-21] VITALS (12 sets, daily range): BP systolic 104–156; BP diastolic 56–77; PULSE 67–89; RESP 16–80; TEMP 36.1–36.8; O2SAT 99–100
--- NOTE | 2024-03-21 05:00 | PM.EVENT ---
Event Note Date of Service: 03/21/24 Event Note: The patient had 2 moderate bloody bowel motions between 4-5 AM. one with clots. BP runs soft. reported generalized pain but no tenderness. To give 2 units of blood 1 gm Tranexamic acid IVF fluids Check Tagged RBCs Consider ICU if BP starts to fall Time Spent With Patient Time: Total time managing care of this patient today ____ minutes.
[2024-03-21] MEDS: Lactated Ringers 1,000 ML 150 ML IVCONT ×3 (05:47→21:18)
[2024-03-21 06:53] LABS: Hematocrit 23.3 % (37.0-47.0); Mean Corpuscular HGB Conc 34.3 g/dl (31.0-35.0); Mean Corpuscular Hemoglobin 29.9 pg (27.0-33.0); Mean Corpuscular Volume 86.9 fL (80.0-98.0); Platelet Count 224 X10*3/uL (160-400); Red Blood Count 2.68 X10*6/uL (4.20-5.50); Red Cell Distribution Width 12.5 % (11.0-16.0); White Blood Count 6.1 X10*3/uL (4.8-10.8)
[2024-03-21] MEDS: Tranexamic Acid 1,000 MG in 0.9 % Sodium Chloride 50 ML 360 MG IV (07:05)
--- NOTE | 2024-03-21 07:43 | P.PNIM_ITS ---
Subjective Subjective Date of Service: 03/21/24 Interval History: f/u on gib, anemia, s/p colonoscopy 03/19 with no source of bleed No bleeding during the day yesterday but had bloody bowel movments this morning Physical Exam 2 Vital Signs: Vital Signs: Last Vital Signs Temp 97.6 F 03/21/24 03:25 Pulse 70 03/21/24 03:25 Resp 16 03/21/24 03:25 BP 114/57 L 03/21/24 03:25 Pulse Ox 99 03/21/24 03:25 O2 Del Method Room Air 03/21/24 03:25 BMI result Body Mass Index 33.6 General: AO X 3, no acute distress Resp: CTA bilateral CVS: S1,S2,RRR GI: +BS, NT, no distention, rectal exam defered Skin: No rash Neuro: motor grossly intact Psych: appropriate affect Objective Data Active Medications Acetaminophen (Acetaminophen 325 Mg Tablet) 650 mg PO Q6H PRN PRN Reason: Pain, Mild (Pain Scale 1-3), fever or headache Last Admin: 03/20/24 19:40 Dose: 650 mg Documented By: JOIE Benzonatate (Benzonatate 100 Mg Capsule) 100 mg PO TID PRN PRN Reason: Cough Calcium Carbonate (Calcium Carbonate 750 Mg Tab.Chew) 750 mg PO Q4H PRN PRN Reason: Heartburn Ferrous Sulfate (Ferrous Sulfate 324 Mg Tablet.Dr) 324 mg PO DAILY [facility] Last Admin: 03/20/24 11:01 Dose: 324 mg Documented By: WALKER Lactated Ringer's (Lr) 1,000 mls @ 150 mls/hr IVCONT .Q6H40M [facility] Last Admin: 03/21/24 05:47 Dose: 150 mls/hr Documented By: JOIE Magnesium Hydroxide (Milk Of Magnesia 30 Ml Oral.Susp) 30 ml PO DAILY PRN PRN Reason: Constipation Melatonin (Melatonin 3 Mg Tablet) 6 mg PO BEDTIME PRN PRN Reason: Insomnia Naloxone HCl (Naloxone Hcl 0.4 Mg/Ml Vial) 0.04 mg IVPUSH Q5M PRN PRN Reason: Excessive sedation or RR < 8 Sodium Chloride (0.9 % Sodium Chloride Flush 3 Ml Syringe) 3 ml IVFLUSH QSHIFT [facility] Last Admin: 03/20/24 23:57 Dose: 3 ml Documented By: JOIE Tramadol HCl (Tramadol Hcl 50 Mg Tablet) 50 mg PO Q4H PRN PRN Reason: Pain, Moderate(Pain Scale 4-6) Last Admin: 03/19/24 06:19 Dose: 50 mg Documented By: LEYLA Labs 03/21/24 06:19 03/19/24 06:15 Labs: Laboratory Results - last 24 hr 03/20/24 03/20/24 03/21/24 09:20 16:42 06:19 MCV 87.7 86.1 86.9 MCH 30.6 30.7 29.9 MCHC 34.8 35.7 H 34.3 RDW 12.6 12.7 12.5 Plt Count 209 231 224 MPV 9.9 9.2 L 9.0 L Immature Gran % (Auto) 0.3 Neut % (Auto) 60.5 Lymph % (Auto) 29.7 [place] % (Auto) 6.7 Eos % (Auto) 2.0 Baso % (Auto) 0.8 Lymph # (Auto) 1.9 [place] # (Auto) 0.4 Eos # (Auto) 0.1 Baso # (Auto) 0.1 Abs Immat Gran (auto) 0.02 Absolute Neuts (auto) 3.9 Absolute Nucleated RBC 0.000 0.000 0.000 Nucleated RBC % (auto) 0.0 0.0 0.0 Hold Yellow Top See Note Blood Type O Negative Antibody Screen NEGATIVE Crossmatch See Detail Assessment and Plan (1) Hematochezia: Status: Acute (2) GI (gastrointestinal bleed): Status: Acute Plan 48/F w/ mild intermittent asthma, anemia, HTN no longer on meds, GERD, and hx of bariatric surgery?in 2022 who presents to the ED with?abdominal pain and bloody diarrhea, admitted for hematochezia, anemia underwent colonoscopy 03/18 and found to have diverticulosis but no active bleed, she has been having intermittent bloody bowel movment that has required transfusion GIB, suspect diverticular bleed, acute blood loss anemia, another episode of bleeding this morning with H/H down -transfused 2 units of rbc on 03/19, another 2 units today 03/21 -should pt become unstable, will need to be transfer to icu -surgery consult -CTA 03/19 negative for bleed -will consult IR for angiogram -NPO -surgery following -will check with gi if repeat colonoscopy indicated Mild intermittent asthma -Not in acute exacerbation -Continue home inhalers HTN -No longer antihypertensives since bariatric surgery -Monitor BP Full Code DVT Prophylaxis: Pneumatic compression due to concern for lower GI bleed need for inpt: ongoing monitoring for active bleed, rectal bleed and acute blood loss anemia Quality Stroke Does the patient have a stroke diagnosis?: No VTE Prior VTE?: No VTE Risk Level:: Medical - moderate - high VTE Device Contraindication: N/A - Device Ordered VTE Drug Contraindication: Treatment Not Indicated
--- NOTE | 2024-03-21 07:46 | PC.NURSE ---
Patient with 3 large loose dark stools this am with mild to moderate transverse abdominal pain. QB=792/74, P=98, R=18 POX=99 T=96.6. Dr Salomon Mike made aware. See new orders. LR continue at 150 ml/hr. Patient is asymptomatic. No signs of acute distress noted.
[2024-03-21] MEDS: Ferrous Sulfate 324 MG TABLET.DR PO (08:24)
[2024-03-21] MEDS: 0.9 % Sodium Chloride Flush 3 ML SYRINGE IVFLUSH (08:25)
--- NOTE | 2024-03-21 08:29 | PM.PNGS ---
Subjective Subjective Date of Service: 03/22/24 Interval history: Did not have bloody BMs yesterday but has 3 episodes at 04:00 o'clock this morning Had some crampy pain as well Currently better Physical Exam Vital Signs: Vital Signs: Last Vital Signs Temp 97.7 F 03/21/24 07:43 Pulse 89 03/21/24 07:43 Resp 19 03/21/24 07:43 BP 156/68 H 03/21/24 07:43 Pulse Ox 100 03/21/24 07:43 O2 Del Method Room Air 03/21/24 07:43 BMI result Body Mass Index 33.6 Const: Other: Looks well General: comfortable and no acute distress Resp: Effort & Inspection: normal respiratory effort Cardio: Rate: regular rate GI: Palpation (GI): Soft to palpation, not firm, nontender and no guarding Objective Data Active Medications Acetaminophen (Acetaminophen 325 Mg Tablet) 650 mg PO Q6H PRN PRN Reason: Pain, Mild (Pain Scale 1-3), fever or headache Last Admin: 03/20/24 19:40 Dose: 650 mg Documented By: JOIE Benzonatate (Benzonatate 100 Mg Capsule) 100 mg PO TID PRN PRN Reason: Cough Calcium Carbonate (Calcium Carbonate 750 Mg Tab.Chew) 750 mg PO Q4H PRN PRN Reason: Heartburn Ferrous Sulfate (Ferrous Sulfate 324 Mg Tablet.Dr) 324 mg PO DAILY [facility] Last Admin: 03/21/24 08:24 Dose: 324 mg Documented By: KAI Lactated Ringer's (Lr) 1,000 mls @ 150 mls/hr IVCONT .Q6H40M [facility] Last Admin: 03/21/24 08:27 Dose: Not Given Documented By: KAI Non-Admin Reason: IV Running Magnesium Hydroxide (Milk Of Magnesia 30 Ml Oral.Susp) 30 ml PO DAILY PRN PRN Reason: Constipation Melatonin (Melatonin 3 Mg Tablet) 6 mg PO BEDTIME PRN PRN Reason: Insomnia Naloxone HCl (Naloxone Hcl 0.4 Mg/Ml Vial) 0.04 mg IVPUSH Q5M PRN PRN Reason: Excessive sedation or RR < 8 Sodium Chloride (0.9 % Sodium Chloride Flush 3 Ml Syringe) 3 ml IVFLUSH QSHIFT [facility] Last Admin: 03/21/24 08:25 Dose: 3 ml Documented By: KAI Tramadol HCl (Tramadol Hcl 50 Mg Tablet) 50 mg PO Q4H PRN PRN Reason: Pain, Moderate(Pain Scale 4-6) Last Admin: 03/19/24 06:19 Dose: 50 mg Documented By: LEYLA Labs 03/22/24 06:25 03/21/24 18:15 Labs: Laboratory Results - last 24 hr 03/20/24 03/20/24 03/21/24 09:20 16:42 06:19 MCV 87.7 86.1 86.9 MCH 30.6 30.7 29.9 MCHC 34.8 35.7 H 34.3 RDW 12.6 12.7 12.5 Plt Count 209 231 224 MPV 9.9 9.2 L 9.0 L Immature Gran % (Auto) 0.3 Neut % (Auto) 60.5 Lymph % (Auto) 29.7 [place] % (Auto) 6.7 Eos % (Auto) 2.0 Baso % (Auto) 0.8 Lymph # (Auto) 1.9 [place] # (Auto) 0.4 Eos # (Auto) 0.1 Baso # (Auto) 0.1 Abs Immat Gran (auto) 0.02 Absolute Neuts (auto) 3.9 Absolute Nucleated RBC 0.000 0.000 0.000 Nucleated RBC % (auto) 0.0 0.0 0.0 Hold Yellow Top See Note Blood Type O Negative Antibody Screen NEGATIVE Crossmatch See Detail Procedures Date of Service Date of Service: 03/22/24 Progress Note: A&P Assessment and plan (1) GI (gastrointestinal bleed): Status: Acute Assessment and Plan: Had bloody BMs describes as dark maroon with clots Likely diverticular in origin Hemodynamically stable Abdomen soft and benign May benefit from angiographic localization and control if with active or recurrent bleeding Follow H&H NPO temporarily Time Spent With Patient Time: Total time managing care of this patient today ____ minutes. Quality Stroke Does the patient have a stroke diagnosis?: No VTE Prior VTE?: No VTE Risk Level:: Medical - moderate - high VTE Device Contraindication: N/A - Device Ordered VTE Drug Contraindication: Treatment Not Indicated
--- NOTE | 2024-03-21 15:23 | PM.EVENT ---
Event Note Date of Service: 03/21/24 Event Note: NM bleeding scan this afternoon shows no active bleeding. Patient has had two bowel movements today that likely represent old residual blood. There is no indication for an angiogram given negative bleeding scan and negative CTA x 2. Discussed with Dr. María JANE Interventional Radiology Time Spent With Patient Time: Total time managing care of this patient today ____ minutes.
--- NOTE | 2024-03-21 15:30 | PM.EVENT ---
Event Note Date of Service: 03/22/24 Event Note: Seen multiple times today Had a bleeding scan - I have reviewed this and this does not reveal an obvious active bleed She had another bowel movement this afternoon with clots Hemodynamically stable I had a long discussion with the IR service regarding option and possible need for angiogram They will review her films At this time however, with negative CT angiogram as well as negative bleeding scan, they feel that an angiogram we will have very low yield In the meantime, follow H&H Patient has been transfused unit earlier today Hemodynamically stable Keep NPO Avoid any anticoagulants including subcu heparin Time Spent With Patient Time: Total time managing care of this patient today ____ minutes.
[2024-03-21] MEDS: traMADoL HCL 50 MG TABLET PO ×2 (17:06→21:16)
[2024-03-21 18:42] LABS: Hematocrit 28.7 % (37.0-47.0); Hemoglobin 10.3 g/dl (12.0-16.0); Mean Corpuscular HGB Conc 35.9 g/dl (31.0-35.0); Mean Corpuscular Volume 86.4 fL (80.0-98.0); Mean Platelet Volume 9.6 fL (9.4-12.3); Platelet Count 212 X10*3/uL (160-400); Red Blood Count 3.32 X10*6/uL (4.20-5.50); Red Cell Distribution Width 12.7 % (11.0-16.0)
[2024-03-21 18:56] LABS: Alanine Aminotransferase 11 U/L (0-31); Albumin Level 3.1 g/dL (3.5-5.0); Alkaline Phosphatase 28 U/L (39-117); Anion Gap 11 (12-20); Aspartate Amino Transferase 15 U/L (5-31); Bilirubin Total 0.5 mg/dL (0.0-1.0); Blood Urea Nitrogen 7 mg/dL (9-16); Calcium 8.7 mg/dL (8.4-10.2); Carbon Dioxide 23 mmol/L (22-29); Chloride 110 mmol/L (96-108); Creatinine Clr Calc Pharmacy 164.1; Estimated Glomerular Filt Rate > 60; Glucose Random 88 mg/dL (60-115); Potassium 3.8 mmol/L (3.3-5.1); Sodium 140 mmol/L (135-145); Total Protein 5.2 g/dL (6.5-8.0)
[2024-03-22] VITALS (12 sets, daily range): BP systolic 106–143; BP diastolic 55–79; PULSE 75–89; RESP 16–20; TEMP 36.1–36.7; O2SAT 96–100
[2024-03-22] MEDS: 0.9 % Sodium Chloride Flush 3 ML SYRINGE IVFLUSH ×3 (00:39→16:37)
[2024-03-22] MEDS: Lactated Ringers 1,000 ML 150 ML IVCONT ×4 (04:00→23:42)
--- NOTE | 2024-03-22 05:29 | PC.NURSE ---
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 Patient remains AAOX4 with c/o abdominal pain relied with Tramadol 50 mg po given x 1. No dark bloodied stools reported overnight. Patient voiding clear, yellow urine without difficulty in BSC. LR infusing at 150 ml/hr. VSS; UR=935/59, P=77. NSR on quality assurance monitor. No signs and symptoms of anemia reported.
--- NOTE | 2024-03-22 05:50 | P.PNIM_ITS ---
Subjective Subjective Date of Service: 03/22/24 Interval History: f/u on gib, anemia, s/p colonoscopy 03/19 with no source of bleed had another blood bowel movment yesterday that seemed like old clots Bleeding scan was negative for active bleed.. She has not had any further bleed since but c/o some abd discomfort Physical Exam 2 Vital Signs: Vital Signs: Selected Entries 03/22/24 07:30 Temperature 98.0 F Pulse Rate 80 Respiratory Rate 19 Blood Pressure 106/55 L Pulse Oximetry 100 Oxygen Delivery Me thod Room Air General: AO X 3, no acute distress Resp: CTA bilateral CVS: S1,S2,RRR GI: +BS, NT, no distention, rectal exam deferred Skin: No rash Neuro: motor grossly intact Psych: appropriate affect Objective Data Active Medications Acetaminophen (Acetaminophen 325 Mg Tablet) 650 mg PO Q6H PRN PRN Reason: Pain, Mild (Pain Scale 1-3), fever or headache Last Admin: 03/20/24 19:40 Dose: 650 mg Documented By: JOIE Benzonatate (Benzonatate 100 Mg Capsule) 100 mg PO TID PRN PRN Reason: Cough Calcium Carbonate (Calcium Carbonate 750 Mg Tab.Chew) 750 mg PO Q4H PRN PRN Reason: Heartburn Ferrous Sulfate (Ferrous Sulfate 324 Mg Tablet.Dr) 324 mg PO DAILY [facility] Last Admin: 03/21/24 08:24 Dose: 324 mg Documented By: KAI Lactated Ringer's (Lr) 1,000 mls @ 150 mls/hr IVCONT .Q6H40M [facility] Last Admin: 03/22/24 04:00 Dose: 150 mls/hr Documented By: JOIE Magnesium Hydroxide (Milk Of Magnesia 30 Ml Oral.Susp) 30 ml PO DAILY PRN PRN Reason: Constipation Melatonin (Melatonin 3 Mg Tablet) 6 mg PO BEDTIME PRN PRN Reason: Insomnia Naloxone HCl (Naloxone Hcl 0.4 Mg/Ml Vial) 0.04 mg IVPUSH Q5M PRN PRN Reason: Excessive sedation or RR < 8 Sodium Chloride (0.9 % Sodium Chloride Flush 3 Ml Syringe) 3 ml IVFLUSH QSHIFT [facility] Last Admin: 03/22/24 00:39 Dose: 3 ml Documented By: JOIE Tramadol HCl (Tramadol Hcl 50 Mg Tablet) 50 mg PO Q4H PRN PRN Reason: Pain, Moderate(Pain Scale 4-6) Last Admin: 03/21/24 21:16 Dose: 50 mg Documented By: JOIE Labs 03/22/24 18:58 03/21/24 18:15 Labs: Laboratory Results - last 24 hr 03/17/24 03/21/24 03/21/24 08:04 06:19 18:15 MCV 86.9 86.4 MCH 29.9 31.0 MCHC 34.3 35.9 H RDW 12.5 12.7 Plt Count 224 212 MPV 9.0 L 9.6 Absolute Nucleated RBC 0.000 0.000 Nucleated RBC % (auto) 0.0 0.0 Anion Gap 11 L Estim Creat Clear Calc 164.1 Estimated GFR > 60 Random Glucose 88 Calcium 8.7 Total Bilirubin 0.5 AST 15 ALT 11 Alkaline Phosphatase 28 L Total Protein 5.2 L Albumin 3.1 L Blood Type O Negative Antibody Screen NEGATIVE Crossmatch See Detail See Detail Assessment and Plan (1) Hematochezia: Status: Acute (2) GI (gastrointestinal bleed): Status: Acute Plan 48/F w/ mild intermittent asthma, anemia, HTN no longer on meds, GERD, and hx of bariatric surgery?in 2022 who presents to the ED with?abdominal pain and bloody diarrhea, admitted for hematochezia, anemia underwent colonoscopy 03/18 and found to have diverticulosis but no active bleed, she has been having intermittent bloody bowel movment that has required transfusion GIB, suspect diverticular bleed, acute blood loss anemia. Has been having intermitted [facility] -transfused 2 units of rbc on 03/19, another 2 units today 03/21--presently which is unchanged from yesterday -should pt become unstable, will need to be transfer to icu -surgery following -CTA 03/19 negative for bleed -tag red cell scan 03/21 negative -IR has been approached for angiogram if actively bleeding -NPO, but will start liquid diet per bariatric surger recommendation -surgery following - gi did not think repeat colonoscopy was warranted, will check if EGD maybe helpful -seen by bariatric surgery and there is no correlation between present presentation and prior sleeve surgery. Liquid diet advised Mild intermittent asthma -Not in acute exacerbation -Continue home inhalers HTN -No longer antihypertensives since bariatric surgery -Monitor BP Full Code DVT Prophylaxis: Pneumatic compression due to concern for lower GI bleed need for inpt: ongoing monitoring for active bleed, rectal bleed and acute blood loss anemia out of bed and ambulate Quality Stroke Does the patient have a stroke diagnosis?: No VTE Prior VTE?: No VTE Risk Level:: Medical - moderate - high VTE Device Contraindication: N/A - Device Ordered VTE Drug Contraindication: Treatment Not Indicated
[2024-03-22 06:46] LABS: Hematocrit 28.1 % (37.0-47.0); Hemoglobin 9.9 g/dl (12.0-16.0); Mean Corpuscular HGB Conc 35.2 g/dl (31.0-35.0); Mean Corpuscular Hemoglobin 30.6 pg (27.0-33.0); Mean Corpuscular Volume 86.7 fL (80.0-98.0); Mean Platelet Volume 9.5 fL (9.4-12.3); Platelet Count 189 X10*3/uL (160-400); Red Blood Count 3.24 X10*6/uL (4.20-5.50); Red Cell Distribution Width 12.9 % (11.0-16.0); White Blood Count 7.5 X10*3/uL (4.8-10.8)
[2024-03-22] MEDS: traMADoL HCL 50 MG TABLET PO (06:52)
--- NOTE | 2024-03-22 07:54 | P.PNGS_ITS ---
Subjective Subjective Date of Service: 03/25/24 Interval history: no bleeding overnight describes epigastric pain no other events reported Physical Exam 2 Vital Signs: Vital Signs: Last Vital Signs Temp 98.0 F 03/22/24 07:30 Pulse 80 03/22/24 07:30 Resp 19 03/22/24 07:30 BP 106/55 L 03/22/24 07:30 Pulse Ox 100 03/22/24 07:30 O2 Del Method Room Air 03/22/24 07:30 BMI result Body Mass Index 33.6 Const: General: no acute distress Resp: Effort & Inspection: normal respiratory effort Cardio: Rate: regular rate GI: Palpation (GI): Soft to palpation, not firm, Tenderness to palpation present (GI) (some tenderness on epig area) and no guarding Objective Data Active Medications Acetaminophen (Acetaminophen 325 Mg Tablet) 650 mg PO Q6H PRN PRN Reason: Pain, Mild (Pain Scale 1-3), fever or headache Last Admin: 03/20/24 19:40 Dose: 650 mg Documented By: JOIE Benzonatate (Benzonatate 100 Mg Capsule) 100 mg PO TID PRN PRN Reason: Cough Calcium Carbonate (Calcium Carbonate 750 Mg Tab.Chew) 750 mg PO Q4H PRN PRN Reason: Heartburn Ferrous Sulfate (Ferrous Sulfate 324 Mg Tablet.Dr) 324 mg PO DAILY [facility] Last Admin: 03/21/24 08:24 Dose: 324 mg Documented By: KAI Lactated Ringer's (Lr) 1,000 mls @ 150 mls/hr IVCONT .Q6H40M [facility] Last Admin: 03/22/24 04:00 Dose: 150 mls/hr Documented By: JOIE Magnesium Hydroxide (Milk Of Magnesia 30 Ml Oral.Susp) 30 ml PO DAILY PRN PRN Reason: Constipation Melatonin (Melatonin 3 Mg Tablet) 6 mg PO BEDTIME PRN PRN Reason: Insomnia Naloxone HCl (Naloxone Hcl 0.4 Mg/Ml Vial) 0.04 mg IVPUSH Q5M PRN PRN Reason: Excessive sedation or RR < 8 Sodium Chloride (0.9 % Sodium Chloride Flush 3 Ml Syringe) 3 ml IVFLUSH QSHIFT [facility] Last Admin: 03/22/24 00:39 Dose: 3 ml Documented By: JOIE Tramadol HCl (Tramadol Hcl 50 Mg Tablet) 50 mg PO Q4H PRN PRN Reason: Pain, Moderate(Pain Scale 4-6) Last Admin: 03/22/24 06:52 Dose: 50 mg Documented By: JOIE Labs 03/23/24 08:26 03/23/24 08:26 Labs: Laboratory Results - last 24 hr 03/17/24 03/21/24 03/21/24 08:04 06:19 18:15 MCV 86.4 MCH 31.0 MCHC 35.9 H RDW 12.7 Plt Count 212 MPV 9.6 Absolute Nucleated RBC 0.000 Nucleated RBC % (auto) 0.0 Anion Gap 11 L Estim Creat Clear Calc 164.1 Estimated GFR > 60 Random Glucose 88 Calcium 8.7 Total Bilirubin 0.5 AST 15 ALT 11 Alkaline Phosphatase 28 L Total Protein 5.2 L Albumin 3.1 L Blood Type O Negative Antibody Screen NEGATIVE Crossmatch See Detail See Detail 03/22/24 06:25 MCV 86.7 MCH 30.6 MCHC 35.2 H RDW 12.9 Plt Count 189 MPV 9.5 Absolute Nucleated RBC 0.000 Nucleated RBC % (auto) 0.0 Anion Gap Estim Creat Clear Calc Estimated GFR Random Glucose Calcium Total Bilirubin AST ALT Alkaline Phosphatase Total Protein Albumin Blood Type Antibody Screen Crossmatch Procedures Date of Service Date of Service: 03/25/24 Progress Note: A&P Assessment and plan (1) Hematochezia: Status: Acute Assessment and Plan: likely diverticular in origin? no bleeding overnight transfused - Hg ok c/o epig pain - consiuder EGD continue PPI ok to have some clear liquids hemodynamically stable Time Spent With Patient Time: Total time managing care of this patient today ____ minutes. Quality Stroke Does the patient have a stroke diagnosis?: No VTE Prior VTE?: No VTE Risk Level:: Medical - moderate - high VTE Device Contraindication: N/A - Device Ordered VTE Drug Contraindication: Treatment Not Indicated
[2024-03-22] MEDS: Ferrous Sulfate 324 MG TABLET.DR PO (08:25)
--- NOTE | 2024-03-22 08:46 | P.CONGS_ITS ---
History of Present Illness Consult details Consult date: 03/22/24 Reason for consult: abdominal pain Requesting physician: Paolo Olivas Narrative: Patient is a 48-year-old female with a history of laparoscopic sleeve gastrectomy performed by Dr. Ortiz on 08/10/2022. She was last seen in the office 02/06/2023, stating that she has not been seen in the office in over a year as she had lost health insurance. Presenting to the hospital on 03/17/2024 with abdominal pain and rectal bleeding. She was transfused 1 unit packed red blood cells, started on proton pump inhibitor, made NPO. She has been seen in consultation by Gastroenterology and General surgery. She underwent a colonoscopy on 03/18/2024 showing no active bleeding however diverticulosis. Due to persistent hematochezia she underwent a red blood cell scan on 03/21/2024 and this was negative. Consult was placed to bariatric surgery for any input regarding her care. Patient states that prior to admission, she had been doing generally fairly well without significant abdominal pain she would have intermittent reflux if she would eat fried foods or heavy foods or spicy foods. Outside of this, she did not have any significant reflux. She reports she was not following any particular meal plan and due to increased anxiety recently she had been eating sweets. She does state that she had been going to the gym, using the treadmill and lifting weights. She does wish to follow up in our office once she is discharged from the hospital. Review of Systems 2 Review of Systems: Yes all other systems are reviewed and are negative PMFSH Past Medical History Medical History Pre-diabetes GERD (gastroesophageal reflux disease) Hiatal hernia HTN (hypertension) Vitamin deficiency Fatigue Diaphragmatic hernia Dyspareunia in female Heavy menstrual bleeding Vitamin B1 deficiency Prediabetes Obstructive sleep apnea treated with continuous positive airway pressure (CPAP) Asthma Acid reflux Umbilical hernia Family History Family History Father No problems noted. Mother Diabetes Hypertension FH: mental illness Maternal Grandmother Hypertension Maternal Uncle Cancer Leukemia Family/Other FH: mental illness Son No problems noted. Son Asthma Glaucoma Son No problems noted. Sister FH: mental illness High cholesterol Brother High cholesterol Surgical History Surgical History History of delivery History of endoscopy History of umbilical hernia repair (10/06/17) History of cholecystectomy History of tubal ligation Social History Social History Household Members: Spouse and Other Household Members Other:: mother Housing: Apartment Are you a primary med care manager to a significant other at home: Yes Do you presently have visiting nurse or other home services: No Alcohol intake: never Patient Tobacco Use Status: Never used Tobacco Second Hand Smoke Exposure: No service: No Current occupational status: employed Meds Allergies Allergy/AdvReac Type Severity Reaction Status Date / Time ibuprofen [From Motrin] Allergy Intermediate Rash Verified 03/18/24 14:06 naproxen [Naprosyn] Allergy Intermediate Rash Verified 03/18/24 14:06 prednisone [PREDNISONE] Allergy Intermediate RASH, Verified 03/18/24 14:06 itching Active Medications: Current Medications Acetaminophen (Acetaminophen 325 Mg Tablet) 650 mg PO Q6H PRN PRN Reason: Pain, Mild (Pain Scale 1-3), fever or headache Last Admin: 03/20/24 19:40 Dose: 650 mg Benzonatate (Benzonatate 100 Mg Capsule) 100 mg PO TID PRN PRN Reason: Cough Calcium Carbonate (Calcium Carbonate 750 Mg Tab.Chew) 750 mg PO Q4H PRN PRN Reason: Heartburn Ferrous Sulfate (Ferrous Sulfate 324 Mg Tablet.Dr) 324 mg PO DAILY [facility] Last Admin: 03/22/24 08:25 Dose: 324 mg Lactated Ringer's (Lr) 1,000 mls @ 150 mls/hr IVCONT .Q6H40M [facility] Last Admin: 03/22/24 08:28 Dose: 150 mls/hr Magnesium Hydroxide (Milk Of Magnesia 30 Ml Oral.Susp) 30 ml PO DAILY PRN PRN Reason: Constipation Melatonin (Melatonin 3 Mg Tablet) 6 mg PO BEDTIME PRN PRN Reason: Insomnia Naloxone HCl (Naloxone Hcl 0.4 Mg/Ml Vial) 0.04 mg IVPUSH Q5M PRN PRN Reason: Excessive sedation or RR < 8 Sodium Chloride (0.9 % Sodium Chloride Flush 3 Ml Syringe) 3 ml IVFLUSH QSHIFT [facility] Last Admin: 03/22/24 08:26 Dose: 3 ml Tramadol HCl (Tramadol Hcl 50 Mg Tablet) 50 mg PO Q4H PRN PRN Reason: Pain, Moderate(Pain Scale 4-6) Last Admin: 03/22/24 06:52 Dose: 50 mg Home Medications ?Medication ?Instructions ?Recorded ?Confirmed ?Last Taken ?Type ferrous sulfate 325 mg (65 mg 325 mg PO DAILY 03/17/24 03/17/24 1 Week Ago History iron) tablet,delayed release ~03/10/24 pantoprazole 40 mg tablet,delayed 40 mg PO BID 03/17/24 03/17/24 1 Week Ago History release ~03/10/24 Physical Exam 2 Vital Signs: Vital Signs: Last Vital Signs Temp 98.0 F 03/22/24 07:30 Pulse 80 03/22/24 07:30 Resp 19 03/22/24 07:30 BP 106/55 L 03/22/24 07:30 Pulse Ox 100 03/22/24 07:30 O2 Del Method Room Air 03/22/24 07:30 BMI result Body Mass Index 33.6 Const: General: cooperative, healthy appearing and comfortable Resp: Effort & Inspection: normal respiratory effort GI: Inspection: Yes normal to inspection Palpation (GI): Soft to palpation and nontender Extrem: General: Yes no pedal edema Results Labs 03/22/24 06:25 03/21/24 18:15 Labs: Abnormal lab results 03/21/24 03/21/24 03/22/24 Range/Units 06:19 18:15 06:25 RBC 3.32 L D 3.24 L (4.20-5.50) X10*6/uL Hgb 10.3 L D 9.9 L (12.0-16.0) g/dl Hct 28.7 L D 28.1 L (37.0-47.0) % MCHC 35.9 H 35.2 H (31.0-35.0) g/dl Chloride 110 H (96-108) mmol/L Anion Gap 11 L (12-20) BUN 7 L (9-16) mg/dL Creatinine 0.48 L (0.5-1.4) mg/dL Alkaline Phosphatase 28 L (39-117) U/L Total Protein 5.2 L (6.5-8.0) g/dL Albumin 3.1 L (3.5-5.0) g/dL Crossmatch See Detail Short CBC 03/21/24 03/22/24 Range/Units 18:15 06:25 WBC 10.0 7.5 (4.8-10.8) X10*3/uL Hgb 10.3 L D 9.9 L (12.0-16.0) g/dl Hct 28.7 L D 28.1 L (37.0-47.0) % Plt Count 212 189 (160-400) X10*3/uL BMP 03/21/24 18:15 Sodium 140 Potassium 3.8 Chloride 110 H Carbon Dioxide 23 BUN 7 L Creatinine 0.48 L Calcium 8.7 Liver Function 03/21/24 Range/Units 18:15 Total Bilirubin 0.5 (0.0-1.0) mg/dL AST 15 (5-31) U/L ALT 11 (0-31) U/L Alkaline Phosphatase 28 L (39-117) U/L Albumin 3.1 L (3.5-5.0) g/dL All other labs normal. Assessment and Plan (1) S/P laparoscopic sleeve gastrectomy: Status: Acute 48-year-old female, 1 year 7 months post sleeve gastrectomy, not seen in the office since January of 2023 due to complaints of losing her insurance. Her admitting diagnosis and current working diagnosis shows no direct correlation to her previous sleeve gastrectomy. Would suggest once she begins oral intake to remain on liquids only including 3 protein shakes per day and water. Goal of approximately 90 g of protein or three 30 g ready to drink shakes drank slowly over a 2 hour period each as well as approximately 64 oz of water daily. She certainly should follow-up in our office as an outpatient once discharged and we will advance her meal plan. If she is unable to follow up in our office, would slowly reintroduce solid foods after 10-14 days. Thank you for allowing us to participate in the care of your patient. Please do not hesitate to call with any further questions. Total time managing care of this patient today: 25 minutes. Procedures Date of Service Date of Service: 03/22/24
[2024-03-22] MEDS: Lidocaine 4 % Patch ADH..PATCH 1 PATCH TRANSDERMA (10:20)
[2024-03-22] MEDS: Pantoprazole Sodium 40 MG/10 ML VIAL IVPUSH (10:21)
--- NOTE | 2024-03-22 10:42 | MHC.CM.PN ---
Patient is not yet medically cleared for dc (GIB);home is the goal and CM will continue to follow.
--- NOTE | 2024-03-22 13:55 | PM.EVENT ---
Event Note Date of Service: 03/22/24 Event Note: GI EGD planned for later today for further evaluation of gi bleeding and epigastric pain. Time Spent With Patient Time: Total time managing care of this patient today ____ minutes.
--- NOTE | 2024-03-22 13:56 | MHC.SHP ---
Pre-Procedural Eval Section A - 24 Hr Update-Section A only Date of Service: 03/22/24 The patient is an INPATIENT: Yes Changes since office visit: No Cold of Flu in the past 2 weeks, No New Medical Problems, No Changes in Medication and No Patient answered all questions The patient has been examined within 24 hours of the surgical procedure. The History & Physical has been completed within 30 days and I have reviewed it.: Yes Section B - Complete if H&P > 30 days Chief Complaint: Hematochezia, ? LGIB Allergies: Allergies Allergy/AdvReac Type Severity Reaction Status Date / Time ibuprofen [From Motrin] Allergy Intermediate Rash Verified 03/18/24 14:06 naproxen [Naprosyn] Allergy Intermediate Rash Verified 03/18/24 14:06 prednisone [PREDNISONE] Allergy Intermediate RASH, Verified 03/18/24 14:06 itching Plan I have reviewed the history and physical and performed a pertinent physical examination on my patient. No changes have occurred unless specified. Time Spent With Patient Time: Total time managing care of this patient today ____ minutes.
--- NOTE | 2024-03-22 14:10 | PC.NURSE ---
IV to right AC is no longer present, but hard stop required documentation of date. Patient arrived from floor with only 22 right hand/wrist.
--- NOTE | 2024-03-22 14:13 | P.CONAN_ITS ---
HPI - Anesthesia Eval Consult details Narrative: 48 yo F presenting for EGD to evaluate for GI bleed. PMFSH Active Problems Active Problems: All Active Problems Hematochezia (Acute) GI (gastrointestinal bleed) (Acute) Obesity (Acute) History of repair of hiatal hernia (Acute) S/P laparoscopic sleeve gastrectomy (Acute) Fungal skin infection (Acute) Dysphagia (Acute) Hiatal hernia with gastroesophageal reflux (Acute) Morbid obesity (Acute) HTN (hypertension) (Acute) Asthma (Acute) Obstructive sleep apnea treated with continuous positive airway pressure (CPAP) (Acute) Past Medical History Medical History Pre-diabetes GERD (gastroesophageal reflux disease) Hiatal hernia HTN (hypertension) Vitamin deficiency Fatigue Diaphragmatic hernia Dyspareunia in female Heavy menstrual bleeding Vitamin B1 deficiency Prediabetes Obstructive sleep apnea treated with continuous positive airway pressure (CPAP) Asthma Acid reflux Umbilical hernia Family History Family History Father No problems noted. Mother Diabetes Hypertension FH: mental illness Maternal Grandmother Hypertension Maternal Uncle Cancer Leukemia Family/Other FH: mental illness Son No problems noted. Son Asthma Glaucoma Son No problems noted. 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 a significant other at home: Yes Do you presently have visiting nurse or other home services: No Alcohol intake: never Patient Tobacco Use Status: Never used Tobacco Second Hand Smoke Exposure: No service: No Current occupational status: employed Meds Allergies Allergy/AdvReac Type Severity Reaction Status Date / Time ibuprofen [From Motrin] Allergy Intermediate Rash Verified 03/18/24 14:06 naproxen [Naprosyn] Allergy Intermediate Rash Verified 03/18/24 14:06 prednisone [PREDNISONE] Allergy Intermediate RASH, Verified 03/18/24 14:06 itching Active Medications: Current Medications Acetaminophen (Acetaminophen 325 Mg Tablet) 650 mg PO Q6H PRN PRN Reason: Pain, Mild (Pain Scale 1-3), fever or headache Last Admin: 03/20/24 19:40 Dose: 650 mg Benzonatate (Benzonatate 100 Mg Capsule) 100 mg PO TID PRN PRN Reason: Cough Calcium Carbonate (Calcium Carbonate 750 Mg Tab.Chew) 750 mg PO Q4H PRN PRN Reason: Heartburn Ferrous Sulfate (Ferrous Sulfate 324 Mg Tablet.Dr) 324 mg PO DAILY [facility] Last Admin: 03/22/24 08:25 Dose: 324 mg Lactated Ringer's (Lr) 1,000 mls @ 150 mls/hr IVCONT .Q6H40M [facility] Last Infusion: 03/22/24 14:12 Dose: 0 mls/hr Lidocaine (Lidocaine 4 % Patch Adh..Patch) 1 patch TRANSDERMA DAILY [facility]; Protocol Last Admin: 03/22/24 10:20 Dose: 1 patch Magnesium Hydroxide (Milk Of Magnesia 30 Ml Oral.Susp) 30 ml PO DAILY PRN PRN Reason: Constipation Melatonin (Melatonin 3 Mg Tablet) 6 mg PO BEDTIME PRN PRN Reason: Insomnia Morphine Sulfate (Morphine Sulfate 2 Mg/Ml Cartridge) 2 mg IVPUSH Q6H PRN; Protocol PRN Reason: Pain, Severe (Pain Scale 7-10) Naloxone HCl (Naloxone Hcl 0.4 Mg/Ml Vial) 0.04 mg IVPUSH Q5M PRN PRN Reason: Excessive sedation or RR < 8 Pantoprazole Sodium (Pantoprazole Sodium 40 Mg/10 Ml Vial) 40 mg IVPUSH BID@0630,1630 [facility] Last Admin: 03/22/24 10:21 Dose: 40 mg Sodium Chloride (0.9 % Sodium Chloride Flush 3 Ml Syringe) 3 ml IVFLUSH QSHIFT [facility] Last Admin: 03/22/24 08:26 Dose: 3 ml Home Medications ?Medication ?Instructions ?Recorded ?Confirmed ?Last Taken ?Type ferrous sulfate 325 mg (65 mg 325 mg PO DAILY 03/17/24 03/17/24 1 Week Ago History iron) tablet,delayed release ~03/10/24 pantoprazole 40 mg tablet,delayed 40 mg PO BID 03/17/24 03/17/24 1 Week Ago History release ~03/10/24 Exam Exam Date and Time: 03/22/24 1410 Height,Weight and Vital Signs: Height 5 ft 6 in Weight 94.347 kg Last Vital Signs Temp 98.1 F 03/22/24 14:12 Pulse 81 03/22/24 14:12 Resp 18 03/22/24 14:12 BP 143/69 H 03/22/24 14:12 Pulse Ox 98 03/22/24 14:12 O2 Del Method Room Air 03/22/24 14:12 Pertinent Lab Results Pertinent Lab Results: Laboratory Tests 03/17/24 03/17/24 03/17/24 05:19 08:04 08:05 WBC 6.6 RBC 3.58 L D Hgb 10.5 L D Hct 31.5 L D MCV 88.0 MCH 29.3 MCHC 33.3 RDW 11.5 Plt Count 308 MPV 9.1 L Immature Gran % (Auto) 0.3 Neut % (Auto) 57.2 Lymph % (Auto) 34.1 [place] % (Auto) 5.1 Eos % (Auto) 2.4 Baso % (Auto) 0.9 Lymph # (Auto) 2.3 [place] # (Auto) 0.3 Eos # (Auto) 0.2 Baso # (Auto) 0.1 Abs Immat Gran (auto) 0.02 Absolute Neuts (auto) 3.8 Absolute Nucleated RBC 0.000 Nucleated RBC % (auto) 0.0 Smear Tech's Comments PT 12.5 INR 1.0 Sodium 142 Potassium 3.9 Chloride 109 H Carbon Dioxide 26 Anion Gap 11 L BUN 18 H Creatinine 0.64 Estim Creat Clear Calc 124.4 Estimated GFR > 60 Random Glucose 138 H Calcium 8.9 D Total Bilirubin 0.3 AST 12 ALT 12 Alkaline Phosphatase 40 Total Protein 6.2 L Albumin 3.4 L Hold Yellow Top Stool Occult Blood POSITIVE Stl C. cayetanensis PCR Not Detected Stool Rotavirus A PCR Not Detected Stl Adenov F 40/41 PCR Not Detected Stool Astrovirus (PCR) Not Detected Stool Campylobacter PCR Not Detected Stool Cryptosporidium PCR Not Detected Stl Sh Tox Pr E STEC PCR Not Detected Stool E coli O157 PCR Not applicable Stl Enterotoxigenic E PCR Not Detected Stool EPEC (PCR) Not Detected Stool EAEC (PCR) Not Detected Stl E. histolytica PCR Not Detected Stool Giardia Lamblia PCR Not Detected Stl P. shigelloides PCR Not Detected Stool Salmonella PCR Not Detected Stool Sapovirus (PCR) Not Detected Stl Shigella/EIEC PCR Not Detected St Y.enterocolitica PCR Not Detected Stool Vibrio (PCR) Not Detected Stl Vibrio cholerae PCR Not Detected Stl Norovirus GI/GII PCR Not Detected C. difficile Tox B Gene NEGATIVE Blood Type O Negative Antibody Screen NEGATIVE Crossmatch See Detail 03/17/24 03/17/24 03/17/24 08:32 16:55 20:45 WBC 6.6 RBC 3.28 L Hgb 9.6 L 10.9 L 9.9 L Hct 29.3 L 32.1 L 29.1 L MCV 89.3 MCH 29.3 MCHC 32.8 RDW 11.6 Plt Count 239 MPV 9.1 L Immature Gran % (Auto) 0.3 Neut % (Auto) 76.8 H Lymph % (Auto) 17.5 L [place] % (Auto) 4.2 Eos % (Auto) 0.6 Baso % (Auto) 0.6 Lymph # (Auto) 1.2 [place] # (Auto) 0.3 Eos # (Auto) 0.0 Baso # (Auto) 0.0 Abs Immat Gran (auto) 0.02 Absolute Neuts (auto) 5.1 Absolute Nucleated RBC 0.000 Nucleated RBC % (auto) 0.0 Smear Tech's Comments PT INR Sodium Potassium Chloride Carbon Dioxide Anion Gap BUN Creatinine Estim Creat Clear Calc Estimated GFR Random Glucose Calcium Total Bilirubin AST ALT Alkaline Phosphatase Total Protein Albumin Hold Yellow Top Stool Occult Blood Stl C. cayetanensis PCR Stool Rotavirus A PCR Stl Adenov F 40/41 PCR Stool Astrovirus (PCR) Stool Campylobacter PCR Stool Cryptosporidium PCR Stl Sh Tox Pr E STEC PCR Stool E coli O157 PCR Stl Enterotoxigenic E PCR Stool EPEC (PCR) Stool EAEC (PCR) Stl E. histolytica PCR Stool Giardia Lamblia PCR Stl P. shigelloides PCR Stool Salmonella PCR Stool Sapovirus (PCR) Stl Shigella/EIEC PCR St Y.enterocolitica PCR Stool Vibrio (PCR) Stl Vibrio cholerae PCR Stl Norovirus GI/GII PCR C. difficile Tox B Gene Blood Type Antibody Screen Crossmatch 03/18/24 03/18/24 03/18/24 00:38 04:48 08:00 WBC 5.1 RBC 3.19 L Hgb 9.5 L 9.4 L 10.1 L Hct 27.7 L 28.2 L 29.8 L MCV 88.4 MCH 29.5 MCHC 33.3 RDW 12.2 Plt Count 138 L D MPV 10.5 Immature Gran % (Auto) 0.2 Neut % (Auto) 48.4 Lymph % (Auto) 41.5 H [place] % (Auto) 6.9 Eos % (Auto) 2.2 Baso % (Auto) 0.8 Lymph # (Auto) 2.1 [place] # (Auto) 0.4 Eos # (Auto) 0.1 Baso # (Auto) 0.0 Abs Immat Gran (auto) 0.01 Absolute Neuts (auto) 2.5 Absolute Nucleated RBC 0.000 Nucleated RBC % (auto) 0.0 Smear Tech's Comments VERIFIED PT INR Sodium 143 Potassium 4.1 Chloride 111 H Carbon Dioxide 25 Anion Gap 11 L BUN 10 Creatinine 0.54 Estim Creat Clear Calc 147.6 Estimated GFR > 60 Random Glucose 92 Calcium 8.6 Total Bilirubin AST ALT Alkaline Phosphatase Total Protein Albumin Hold Yellow Top Stool Occult Blood Stl C. cayetanensis PCR Stool Rotavirus A PCR Stl Adenov F 40/41 PCR Stool Astrovirus (PCR) Stool Campylobacter PCR Stool Cryptosporidium PCR Stl Sh Tox Pr E STEC PCR Stool E coli O157 PCR Stl Enterotoxigenic E PCR Stool EPEC (PCR) Stool EAEC (PCR) Stl E. histolytica PCR Stool Giardia Lamblia PCR Stl P. shigelloides PCR Stool Salmonella PCR Stool Sapovirus (PCR) Stl Shigella/EIEC PCR St Y.enterocolitica PCR Stool Vibrio (PCR) Stl Vibrio cholerae PCR Stl Norovirus GI/GII PCR C. difficile Tox B Gene Blood Type Antibody Screen Crossmatch 03/18/24 03/19/24 03/19/24 19:10 06:15 06:15 WBC 6.6 4.5 L 4.6 L RBC 3.25 L 3.24 L Hgb 9.7 L Hct 28.3 L MCV 87.1 MCH 29.8 MCHC 34.3 RDW 11.9 Plt Count 219 D MPV 9.0 L Immature Gran % (Auto) Neut % (Auto) Lymph % (Auto) [place] % (Auto) Eos % (Auto) Baso % (Auto) Lymph # (Auto) [place] # (Auto) Eos # (Auto) Baso # (Auto) Abs Immat Gran (auto) Absolute Neuts (auto) Absolute Nucleated RBC 0.000 Nucleated RBC % (auto) 0.0 Smear Tech's Comments PT INR Sodium Potassium Chloride Carbon Dioxide Anion Gap BUN Creatinine Estim Creat Clear Calc Estimated GFR Random Glucose Calcium Total Bilirubin AST ALT Alkaline Phosphatase Total Protein Albumin Hold Yellow Top Stool Occult Blood Stl C. cayetanensis PCR Stool Rotavirus A PCR Stl Adenov F PCR Stool Astrovirus (PCR) Stool Campylobacter PCR Stool Cryptosporidium PCR Stl Sh Tox Pr E STEC PCR Stool E coli O157 PCR Stl Enterotoxigenic E PCR Stool EPEC (PCR) Stool EAEC (PCR) Stl E. histolytica PCR Stool Giardia Lamblia PCR Stl P. shigelloides PCR Stool Salmonella PCR Stool Sapovirus (PCR) Stl Shigella/EIEC PCR St Y.enterocolitica PCR Stool Vibrio (PCR) Stl Vibrio cholerae PCR Stl Norovirus GI/GII PCR C. difficile Tox B Gene Blood Type Antibody Screen Crossmatch 03/19/24 03/19/24 03/19/24 06:15 06:15 06:15 WBC RBC 3.23 L Hgb 9.6 L 9.7 L Hct 28.2 L 28.2 L MCV 87.0 MCH MCHC RDW Plt Count MPV Immature Gran % (Auto) Neut % (Auto) Lymph % (Auto) [place] % (Auto) Eos % (Auto) Baso % (Auto) Lymph # (Auto) [place] # (Auto) Eos # (Auto) Baso # (Auto) Abs Immat Gran (auto) Absolute Neuts (auto) Absolute Nucleated RBC Nucleated RBC % (auto) Smear Tech's Comments PT INR Sodium Potassium Chloride Carbon Dioxide Anion Gap BUN Creatinine Estim Creat Clear Calc Estimated GFR Random Glucose Calcium Total Bilirubin AST ALT Alkaline Phosphatase Total Protein Albumin Hold Yellow Top Stool Occult Blood Stl C. cayetanensis PCR Stool Rotavirus A PCR Stl Adenov F PCR Stool Astrovirus (PCR) Stool Campylobacter PCR Stool Cryptosporidium PCR Stl Sh Tox Pr E STEC PCR Stool E coli O157 PCR Stl Enterotoxigenic E PCR Stool EPEC (PCR) Stool EAEC (PCR) Stl E. histolytica PCR Stool Giardia Lamblia PCR Stl P. shigelloides PCR Stool Salmonella PCR Stool Sapovirus (PCR) Stl Shigella/EIEC PCR St Y.enterocolitica PCR Stool Vibrio (PCR) Stl Vibrio cholerae PCR Stl Norovirus GI/GII PCR C. difficile Tox B Gene Blood Type Antibody Screen Crossmatch 03/19/24 03/19/24 03/19/24 06:15 06:15 06:15 WBC RBC Hgb Hct MCV 87.3 MCH 29.6 30.0 MCHC 34.0 34.4 RDW 11.8 Plt Count MPV Immature Gran % (Auto) Neut % (Auto) Lymph % (Auto) [place] % (Auto) Eos % (Auto) Baso % (Auto) Lymph # (Auto) [place] # (Auto) Eos # (Auto) Baso # (Auto) Abs Immat Gran (auto) Absolute Neuts (auto) Absolute Nucleated RBC Nucleated RBC % (auto) Smear Tech's Comments PT INR Sodium Potassium Chloride Carbon Dioxide Anion Gap BUN Creatinine Estim Creat Clear Calc Estimated GFR Random Glucose Calcium Total Bilirubin AST ALT Alkaline Phosphatase Total Protein Albumin Hold Yellow Top Stool Occult Blood Stl C. cayetanensis PCR Stool Rotavirus A PCR Stl Adenov F 40/41 PCR Stool Astrovirus (PCR) Stool Campylobacter PCR Stool Cryptosporidium PCR Stl Sh Tox Pr E STEC PCR Stool E coli O157 PCR Stl Enterotoxigenic E PCR Stool EPEC (PCR) Stool EAEC (PCR) Stl E. histolytica PCR Stool Giardia Lamblia PCR Stl P. shigelloides PCR Stool Salmonella PCR Stool Sapovirus (PCR) Stl Shigella/EIEC PCR St Y.enterocolitica PCR Stool Vibrio (PCR) Stl Vibrio cholerae PCR Stl Norovirus GI/GII PCR C. difficile Tox B Gene Blood Type Antibody Screen Crossmatch 03/19/24 03/19/24 03/19/24 06:15 06:15 06:15 WBC RBC Hgb Hct MCV MCH MCHC RDW 11.8 Plt Count 222 220 MPV 9.1 L 9.0 L Immature Gran % (Auto) 0.2 Neut % (Auto) 48.7 Lymph % (Auto) 38.7 [place] % (Auto) 7.5 Eos % (Auto) 3.8 Baso % (Auto) 1.1 Lymph # (Auto) 1.8 [place] # (Auto) 0.3 Eos # (Auto) 0.2 Baso # (Auto) 0.1 Abs Immat Gran (auto) 0.01 Absolute Neuts (auto) 2.2 Absolute Nucleated RBC 0.000 Nucleated RBC % (auto) Smear Tech's Comments PT INR Sodium Potassium Chloride Carbon Dioxide Anion Gap BUN Creatinine Estim Creat Clear Calc Estimated GFR Random Glucose Calcium Total Bilirubin AST ALT Alkaline Phosphatase Total Protein Albumin Hold Yellow Top Stool Occult Blood Stl C. cayetanensis PCR Stool Rotavirus A PCR Stl Adenov F 40/ PCR Stool Astrovirus (PCR) Stool Campylobacter PCR Stool Cryptosporidium PCR Stl Sh Tox Pr E STEC PCR Stool E coli O157 PCR Stl Enterotoxigenic E PCR Stool EPEC (PCR) Stool EAEC (PCR) Stl E. histolytica PCR Stool Giardia Lamblia PCR Stl P. shigelloides PCR Stool Salmonella PCR Stool Sapovirus (PCR) Stl Shigella/EIEC PCR St Y.enterocolitica PCR Stool Vibrio (PCR) Stl Vibrio cholerae PCR Stl Norovirus GI/GII PCR C. difficile Tox B Gene Blood Type Antibody Screen Crossmatch 03/19/24 03/19/24 03/19/24 06:15 06:15 06:15 WBC RBC Hgb Hct MCV MCH MCHC RDW Plt Count MPV Immature Gran % (Auto) Neut % (Auto) Lymph % (Auto) [place] % (Auto) Eos % (Auto) Baso % (Auto) Lymph # (Auto) [place] # (Auto) Eos # (Auto) Baso # (Auto) Abs Immat Gran (auto) Absolute Neuts (auto) Absolute Nucleated RBC 0.000 Nucleated RBC % (auto) 0.0 0.0 Smear Tech's Comments PT INR Sodium 142 142 Potassium 3.6 Chloride Carbon Dioxide Anion Gap BUN Creatinine Estim Creat Clear Calc Estimated GFR Random Glucose Calcium Total Bilirubin AST ALT Alkaline Phosphatase Total Protein Albumin Hold Yellow Top Stool Occult Blood Stl C. cayetanensis PCR Stool Rotavirus A PCR Stl Adenov F 40 PCR Stool Astrovirus (PCR) Stool Campylobacter PCR Stool Cryptosporidium PCR Stl Sh Tox Pr E STEC PCR Stool E coli O157 PCR Stl Enterotoxigenic E PCR Stool EPEC (PCR) Stool EAEC (PCR) Stl E. histolytica PCR Stool Giardia Lamblia PCR Stl P. shigelloides PCR Stool Salmonella PCR Stool Sapovirus (PCR) Stl Shigella/EIEC PCR St Y.enterocolitica PCR Stool Vibrio (PCR) Stl Vibrio cholerae PCR Stl Norovirus GI/GII PCR C. difficile Tox B Gene Blood Type Antibody Screen Crossmatch 03/19/24 03/19/24 03/19/24 06:15 06:15 06:15 WBC RBC Hgb Hct MCV MCH MCHC RDW Plt Count MPV Immature Gran % (Auto) Neut % (Auto) Lymph % (Auto) [place] % (Auto) Eos % (Auto) Baso % (Auto) Lymph # (Auto) [place] # (Auto) Eos # (Auto) Baso # (Auto) Abs Immat Gran (auto) Absolute Neuts (auto) Absolute Nucleated RBC Nucleated RBC % (auto) Smear Tech's Comments PT INR Sodium Potassium 3.6 Chloride 109 H 108 Carbon Dioxide 27 26 Anion Gap 10 L BUN Creatinine Estim Creat Clear Calc Estimated GFR Random Glucose Calcium Total Bilirubin AST ALT Alkaline Phosphatase Total Protein Albumin Hold Yellow Top Stool Occult Blood Stl C. cayetanensis PCR Stool Rotavirus A PCR Stl Adenov F 40/41 PCR Stool Astrovirus (PCR) Stool Campylobacter PCR Stool Cryptosporidium PCR Stl Sh Tox Pr E STEC PCR Stool E coli O157 PCR Stl Enterotoxigenic E PCR Stool EPEC (PCR) Stool EAEC (PCR) Stl E. histolytica PCR Stool Giardia Lamblia PCR Stl P. shigelloides PCR Stool Salmonella PCR Stool Sapovirus (PCR) Stl Shigella/EIEC PCR St Y.enterocolitica PCR Stool Vibrio (PCR) Stl Vibrio cholerae PCR Stl Norovirus GI/GII PCR C. difficile Tox B Gene Blood Type Antibody Screen Crossmatch 03/19/24 03/19/24 03/19/24 06:15 06:15 06:15 WBC RBC Hgb Hct MCV MCH MCHC RDW Plt Count MPV Immature Gran % (Auto) Neut % (Auto) Lymph % (Auto) [place] % (Auto) Eos % (Auto) Baso % (Auto) Lymph # (Auto) [place] # (Auto) Eos # (Auto) Baso # (Auto) Abs Immat Gran (auto) Absolute Neuts (auto) Absolute Nucleated RBC Nucleated RBC % (auto) Smear Tech's Comments PT INR Sodium Potassium Chloride Carbon Dioxide Anion Gap 12 BUN 8 L 8 L Creatinine 0.55 0.53 Estim Creat Clear Calc 143.1 Estimated GFR Random Glucose Calcium Total Bilirubin AST ALT Alkaline Phosphatase Total Protein Albumin Hold Yellow Top Stool Occult Blood Stl C. cayetanensis PCR Stool Rotavirus A PCR Stl Adenov F 40/41 PCR Stool Astrovirus (PCR) Stool Campylobacter PCR Stool Cryptosporidium PCR Stl Sh Tox Pr E STEC PCR Stool E coli O157 PCR Stl Enterotoxigenic E PCR Stool EPEC (PCR) Stool EAEC (PCR) Stl E. histolytica PCR Stool Giardia Lamblia PCR Stl P. shigelloides PCR Stool Salmonella PCR Stool Sapovirus (PCR) Stl Shigella/EIEC PCR St Y.enterocolitica PCR Stool Vibrio (PCR) Stl Vibrio cholerae PCR Stl Norovirus GI/GII PCR C. difficile Tox B Gene Blood Type Antibody Screen Crossmatch 03/19/24 03/19/24 03/19/24 06:15 06:15 06:15 WBC RBC Hgb Hct MCV MCH MCHC RDW Plt Count MPV Immature Gran % (Auto) Neut % (Auto) Lymph % (Auto) [place] % (Auto) Eos % (Auto) Baso % (Auto) Lymph # (Auto) [place] # (Auto) Eos # (Auto) Baso # (Auto) Abs Immat Gran (auto) Absolute Neuts (auto) Absolute Nucleated RBC Nucleated RBC % (auto) Smear Tech's Comments PT INR Sodium Potassium Chloride Carbon Dioxide Anion Gap BUN Creatinine Estim Creat Clear Calc 148.6 Estimated GFR > 60 > 60 Random Glucose 82 81 Calcium 8.8 Total Bilirubin AST ALT Alkaline Phosphatase Total Protein Albumin Hold Yellow Top Stool Occult Blood Stl C. cayetanensis PCR Stool Rotavirus A PCR Stl Adenov F 40/41 PCR Stool Astrovirus (PCR) Stool Campylobacter PCR Stool Cryptosporidium PCR Stl Sh Tox Pr E STEC PCR Stool E coli O157 PCR Stl Enterotoxigenic E PCR Stool EPEC (PCR) Stool EAEC (PCR) Stl E. histolytica PCR Stool Giardia Lamblia PCR Stl P. shigelloides PCR Stool Salmonella PCR Stool Sapovirus (PCR) Stl Shigella/EIEC PCR St Y.enterocolitica PCR Stool Vibrio (PCR) Stl Vibrio cholerae PCR Stl Norovirus GI/GII PCR C. difficile Tox B Gene Blood Type Antibody Screen Crossmatch 03/19/24 03/19/24 03/19/24 06:15 12:48 16:27 WBC 7.1 RBC 2.89 L Hgb 8.5 L 8.2 L Hct 25.6 L 23.0 L MCV 88.6 MCH 29.4 MCHC 33.2 RDW 11.8 Plt Count TNP MPV TNP Immature Gran % (Auto) Neut % (Auto) Lymph % (Auto) [place] % (Auto) Eos % (Auto) Baso % (Auto) Lymph # (Auto) [place] # (Auto) Eos # (Auto) Baso # (Auto) Abs Immat Gran (auto) Absolute Neuts (auto) Absolute Nucleated RBC 0.000 Nucleated RBC % (auto) 0.0 Smear Tech's Comments PT INR Sodium Potassium Chloride Carbon Dioxide Anion Gap BUN Creatinine Estim Creat Clear Calc Estimated GFR Random Glucose Calcium 8.7 Total Bilirubin AST ALT Alkaline Phosphatase Total Protein Albumin Hold Yellow Top Stool Occult Blood Stl C. cayetanensis PCR Stool Rotavirus A PCR Stl Adenov F 40 PCR Stool Astrovirus (PCR) Stool Campylobacter PCR Stool Cryptosporidium PCR Stl Sh Tox Pr E STEC PCR Stool E coli O157 PCR Stl Enterotoxigenic E PCR Stool EPEC (PCR) Stool EAEC (PCR) Stl E. histolytica PCR Stool Giardia Lamblia PCR Stl P. shigelloides PCR Stool Salmonella PCR Stool Sapovirus (PCR) Stl Shigella/EIEC PCR St Y.enterocolitica PCR Stool Vibrio (PCR) Stl Vibrio cholerae PCR Stl Norovirus GI/GII PCR C. difficile Tox B Gene Blood Type Antibody Screen Crossmatch 03/20/24 03/20/24 03/21/24 09:20 16:42 06:19 WBC 6.4 7.7 6.1 RBC 3.01 L 2.96 L 2.68 L Hgb 9.2 L 9.1 L 8.0 L Hct 26.4 L 25.5 L 23.3 L MCV 87.7 86.1 86.9 MCH 30.6 30.7 29.9 MCHC 34.8 35.7 H 34.3 RDW 12.6 12.7 12.5 Plt Count 209 231 224 MPV 9.9 9.2 L 9.0 L Immature Gran % (Auto) 0.3 Neut % (Auto) 60.5 Lymph % (Auto) 29.7 [place] % (Auto) 6.7 Eos % (Auto) 2.0 Baso % (Auto) 0.8 Lymph # (Auto) 1.9 [place] # (Auto) 0.4 Eos # (Auto) 0.1 Baso # (Auto) 0.1 Abs Immat Gran (auto) 0.02 Absolute Neuts (auto) 3.9 Absolute Nucleated RBC 0.000 0.000 0.000 Nucleated RBC % (auto) 0.0 0.0 0.0 Smear Tech's Comments PT INR Sodium Potassium Chloride Carbon Dioxide Anion Gap BUN Creatinine Estim Creat Clear Calc Estimated GFR Random Glucose Calcium Total Bilirubin AST ALT Alkaline Phosphatase Total Protein Albumin Hold Yellow Top See Note Stool Occult Blood Stl C. cayetanensis PCR Stool Rotavirus A PCR Stl Adenov F 40/41 PCR Stool Astrovirus (PCR) Stool Campylobacter PCR Stool Cryptosporidium PCR Stl Sh Tox Pr E STEC PCR Stool E coli O157 PCR Stl Enterotoxigenic E PCR Stool EPEC (PCR) Stool EAEC (PCR) Stl E. histolytica PCR Stool Giardia Lamblia PCR Stl P. shigelloides PCR Stool Salmonella PCR Stool Sapovirus (PCR) Stl Shigella/EIEC PCR St Y.enterocolitica PCR Stool Vibrio (PCR) Stl Vibrio cholerae PCR Stl Norovirus GI/GII PCR C. difficile Tox B Gene Blood Type O Negative Antibody Screen NEGATIVE Crossmatch See Detail 03/21/24 03/22/24 18:15 06:25 WBC 10.0 7.5 RBC 3.32 L D 3.24 L Hgb 10.3 L D 9.9 L Hct 28.7 L D 28.1 L MCV 86.4 86.7 MCH 31.0 30.6 MCHC 35.9 H 35.2 H RDW 12.7 12.9 Plt Count 212 189 MPV 9.6 9.5 Immature Gran % (Auto) Neut % (Auto) Lymph % (Auto) [place] % (Auto) Eos % (Auto) Baso % (Auto) Lymph # (Auto) [place] # (Auto) Eos # (Auto) Baso # (Auto) Abs Immat Gran (auto) Absolute Neuts (auto) Absolute Nucleated RBC 0.000 0.000 Nucleated RBC % (auto) 0.0 0.0 Smear Tech's Comments PT INR Sodium 140 Potassium 3.8 Chloride 110 H Carbon Dioxide 23 Anion Gap 11 L BUN 7 L Creatinine 0.48 L Estim Creat Clear Calc 164.1 Estimated GFR > 60 Random Glucose 88 Calcium 8.7 Total Bilirubin 0.5 AST 15 ALT 11 Alkaline Phosphatase 28 L Total Protein 5.2 L Albumin 3.1 L Hold Yellow Top Stool Occult Blood Stl C. cayetanensis PCR Stool Rotavirus A PCR Stl Adenov F 40/41 PCR Stool Astrovirus (PCR) Stool Campylobacter PCR Stool Cryptosporidium PCR Stl Sh Tox Pr E STEC PCR Stool E coli O157 PCR Stl Enterotoxigenic E PCR Stool EPEC (PCR) Stool EAEC (PCR) Stl E. histolytica PCR Stool Giardia Lamblia PCR Stl P. shigelloides PCR Stool Salmonella PCR Stool Sapovirus (PCR) Stl Shigella/EIEC PCR St Y.enterocolitica PCR Stool Vibrio (PCR) Stl Vibrio cholerae PCR Stl Norovirus GI/GII PCR C. difficile Tox B Gene Blood Type Antibody Screen Crossmatch Airway Mallampati Class: II TM Dist: >3cm Neck ROM: Full Loose/Missing/Broken Teeth: No (patient denies any loose or broken teeth) Heart: S1S2 Lungs: CTAB Assessment and Plan Assessment Anesthesia Assessment: Anesthesia Plan Discussed and Chart Reviewed Final Anesthetic Review Family History of Problems with Anesthesia: No History of Problems with Anesthesia: No NPO: Yes ASA Class: III Final Preanesthetic Review: No Changes in Pt Med Stat, Meds/Allgs Chart Reviewed, Consent Obtained/Reviewed and Anes Risks/Benef Reviewed Patient Risk: Intermediate Procedure Risk: Low Anesthetic Plan Anesthetic Plan: MAC: and Agree w/ Assess. and Plan Disposition: Standard PACU
--- NOTE | 2024-03-22 14:40 | PM.OP ---
Brief Operative Note Date of Service: 03/22/24 Pre-op diagnosis: GI Bleed Post-op diagnosis: same Procedure: EGD Surgeon: Kameron Olivo MD Anesthesia: MAC Was an Sales Recruiter used for this Procedure?: No Estimated blood loss (mL): 2 Pathology: other Condition: stable Disposition: PACU
--- NOTE | 2024-03-22 14:42 | PM.EVENT ---
Event Note Date of Service: 03/22/24 Event Note: EGD no bleeding surgical changes c/w sleeve small hiatal hernia nonobstructive Schatzki ring antral biopsies taken rec start clears, advance as tolerated empiric ppi x8 wks f/u bx results. d/c when stable Time Spent With Patient Time: Total time managing care of this patient today ____ minutes.
[2024-03-22 19:15] LABS: Hematocrit 28.2 % (37.0-47.0); Hemoglobin 10.4 g/dl (12.0-16.0)
[2024-03-22] MEDS: Acetaminophen 325 MG TABLET 650 MG PO (20:17)
--- NOTE | 2024-03-23 00:06 | OP_ITS ---
DATE OF SERVICE: 03/22/2024 SURGEON: Kameron Olivo MD INDICATIONS: GI bleeding and epigastric pain. PREOPERATIVE DIAGNOSIS: POSTOPERATIVE DIAGNOSIS: PROCEDURE PERFORMED: Upper endoscopy with biopsy. ESTIMATED BLOOD LOSS: COMPLICATIONS: ANESTHESIA: Medications, monitored anesthesia care. ASSISTANTS: SPECIMENS: DESCRIPTION OF PROCEDURE: A history and physical performed. The risks and benefits of the procedure were explained to the patient. Informed consent was obtained. The patient was placed in the left lateral decubitus position. The Olympus video gastroscope was introduced into the esophagus, stomach, and duodenum. Examination was performed. The scope was removed. She tolerated the procedure well and was taken to recovery area in stable condition. FINDINGS: Esophagus: The esophagus was normal. There was a nonobstructive Schatzki ring and a small hiatal hernia. There was no esophagitis. Stomach: Showed surgical changes consistent with her prior sleeve gastrectomy. The mucosa was intact with no evidence of ulceration. Antral biopsies were obtained to evaluate for H pylori. No bleeding was identified. Duodenum: The bulb and 2nd portion were normal. IMPRESSION: 1. Hiatal hernia. 2. Schatzki ring. RECOMMENDATION: 1. Follow up the biopsy results. 2. Start clear liquid diet. 3. Advance diet as tolerated. MD ZAHRA Dejesus/HILTONL / [id number]
[2024-03-23] MEDS: Butalb/Acetamin/Caff 50/325/40 TABLET 1 TAB PO (00:10)
[2024-03-23 04:00] VITALS: BP 117/78; PULSE 69; RESP 20; TEMP 36.4; O2SAT 98
[2024-03-23] MEDS: Omeprazole 20 MG CAPSULE.DR PO (05:57)
[2024-03-23 07:10] VITALS: BP 116/64; PULSE 69; RESP 18; TEMP 36.7; O2SAT 98
[2024-03-23] MEDS: Ferrous Sulfate 324 MG TABLET.DR PO (08:04)
[2024-03-23] MEDS: Lidocaine 4 % Patch ADH..PATCH 1 PATCH TRANSDERMA (08:06)
[2024-03-23] MEDS: 0.9 % Sodium Chloride Flush 3 ML SYRINGE IVFLUSH ×2 (08:08→16:20)
[2024-03-23 08:40] LABS: Hematocrit 27.7 % (37.0-47.0); Hemoglobin 9.8 g/dl (12.0-16.0); Mean Corpuscular HGB Conc 35.4 g/dl (31.0-35.0); Mean Corpuscular Hemoglobin 30.7 pg (27.0-33.0); Mean Corpuscular Volume 86.8 fL (80.0-98.0); PLT CLUMP 1; Red Blood Count 3.19 X10*6/uL (4.20-5.50)
[2024-03-23 08:56] LABS: Anion Gap 13 (12-20); Blood Urea Nitrogen 5 mg/dL (9-16); Calcium 8.7 mg/dL (8.4-10.2); Carbon Dioxide 25 mmol/L (22-29); Chloride 107 mmol/L (96-108); Creatinine Clr Calc Pharmacy 154.4; Estimated Glomerular Filt Rate > 60; Glucose Random 84 mg/dL (60-115); Potassium 3.9 mmol/L (3.3-5.1); Sodium 141 mmol/L (135-145)
[2024-03-23 09:05] LABS: White Blood Count 5.7 X10*3/uL (4.8-10.8)
[2024-03-23 09:06] LABS: Platelet Count 241 X10*3/uL (160-400)
[2024-03-23 11:19] VITALS: BP 125/72; PULSE 79; RESP 18; TEMP 36.7; O2SAT 99
--- NOTE | 2024-03-23 11:37 | HO.PM.IMPN ---
Subjective Subjective Date of Service: 03/23/24 Interval History: Had blood bm last night, H/H no singicant change c/o some abdominal pain this morning EGD done yesterday showed: 1. Hiatal hernia. 2. Schatzki ring. Physical Exam Vital Signs: Vital Signs: Last Vital Signs Temp 98.1 F 03/23/24 11:19 Pulse 79 03/23/24 11:19 Resp 18 03/23/24 11:19 BP 125/72 03/23/24 11:19 Pulse Ox 99 03/23/24 11:19 O2 Del Method Room Air 03/23/24 11:19 BMI result Body Mass Index 33.6 Const: Other: General: AO X 3, no acute distress Resp: CTA bilateral CVS: S1,S2,RRR GI: +BS, NT, no distention Skin: No rash Neuro: motor grossly intact Psych: appropriate affect Objective Data Active Medications Acetaminophen (Acetaminophen 325 Mg Tablet) 650 mg PO Q6H PRN PRN Reason: Pain, Mild (Pain Scale 1-3), fever or headache Last Admin: 03/22/24 20:17 Dose: 650 mg Documented By: EZRA Comments: per pt requested for headache Benzonatate (Benzonatate 100 Mg Capsule) 100 mg PO TID PRN PRN Reason: Cough Calcium Carbonate (Calcium Carbonate 750 Mg Tab.Chew) 750 mg PO Q4H PRN PRN Reason: Heartburn Ferrous Sulfate (Ferrous Sulfate 324 Mg Tablet.Dr) 324 mg PO DAILY [facility] Last Admin: 03/23/24 08:04 Dose: 324 mg Documented By: TRACY Lidocaine (Lidocaine 4 % Patch Adh..Patch) 1 patch TRANSDERMA DAILY [facility]; Protocol Last Admin: 03/23/24 08:06 Dose: 1 patch Documented By: TRACY Magnesium Hydroxide (Milk Of Magnesia 30 Ml Oral.Susp) 30 ml PO DAILY PRN PRN Reason: Constipation Melatonin (Melatonin 3 Mg Tablet) 6 mg PO BEDTIME PRN PRN Reason: Insomnia Morphine Sulfate (Morphine Sulfate 2 Mg/Ml Cartridge) 2 mg IVPUSH Q6H PRN; Protocol PRN Reason: Pain, Severe (Pain Scale 7-10) Naloxone HCl (Naloxone Hcl 0.4 Mg/Ml Vial) 0.04 mg IVPUSH Q5M PRN PRN Reason: Excessive sedation or RR < 8 Naloxone HCl (Naloxone Hcl 0.4 Mg/Ml Vial) 0.04 mg IVPUSH Q5M PRN PRN Reason: Excessive sedation or RR < 8 Omeprazole (Omeprazole 20 Mg Capsule.) 20 mg PO DAILY@0630 [facility] Last Admin: 03/23/24 05:57 Dose: 20 mg Documented By: EZRA Oxycodone HCl (Oxycodone Hcl Immed Release 5 Mg Tablet) 5 mg PO Q6H PRN PRN Reason: Pain, Severe (Pain Scale 7-10) Sodium Chloride (0.9 % Sodium Chloride Flush 3 Ml Syringe) 3 ml IVFLUSH QSHIFT [facility] Last Admin: 03/23/24 08:08 Dose: 3 ml Documented By: TRACY Labs 03/23/24 08:26 03/23/24 08:26 Labs: Laboratory Results - last 24 hr 03/23/24 08:26 MCV 86.8 MCH 30.7 MCHC 35.4 H RDW 13.0 Plt Count 241 D MPV Not Reportable Absolute Nucleated RBC 0.000 Nucleated RBC % (auto) 0.0 Anion Gap 13 Estim Creat Clear Calc 154.4 Estimated GFR > 60 Random Glucose 84 Calcium 8.7 Assessment and Plan (1) Hematochezia: Status: Acute (2) GI (gastrointestinal bleed): Status: Acute Plan 48/F w/ mild intermittent asthma, anemia, HTN no longer on meds, GERD, and hx of bariatric surgery?in 2022 who presents to the ED with?abdominal pain and bloody diarrhea, admitted for hematochezia, anemia underwent colonoscopy 03/18 and found to have diverticulosis but no active bleed, she has been having intermittent bloody bowel movment that has required transfusion GIB, suspect diverticular bleed, acute blood loss anemia. Has been having intermitted dark blood last episode -had colonoscopy 03/18 no bleeding, diverticulosis, no polyps -transfused 2 units of rbc on 03/19, another 2 units today 03/21--presently 9.8/27.7 which is essentially unchnaged from yesterday -should pt become unstable, will need to be transfer to icu -surgery following -CTA 03/19 negative for bleed -tag red cell scan 03/21 negative -IR has been approached for angiogram if actively bleeding will proceed -NPO, advance diet if remains without furthre bleeding -seen by bariatric surgery and there is no correlation between present presentation and prior sleeve surgery. Liquid diet advised -will contact [facility] for possible transfer and consideration of angiogram Mild intermittent asthma -Not in acute exacerbation -Continue home inhalers HTN -No longer antihypertensives since bariatric surgery -Monitor BP Full Code DVT Prophylaxis: Pneumatic compression due to concern for lower GI bleed need for inpt: ongoing monitoring for active bleed, rectal bleed and acute blood loss anemia out of bed and ambulate Quality Stroke Does the patient have a stroke diagnosis?: No VTE Prior VTE?: No VTE Risk Level:: Medical - moderate - high VTE Device Contraindication: N/A - Device Ordered VTE Drug Contraindication: Treatment Not Indicated
[2024-03-23] MEDS: oxyCODONE HCl Immed Release 5 MG TABLET PO (11:50)
--- NOTE | 2024-03-23 12:51 | PM.DS ---
DS: Providers Provider Date of Service: 03/23/24 Date of admission: 03/17/24 12:29 Date of discharge: 03/23/24 Primary care physician: Morales Ly MD Consults: 03/17/24 12:14 Consult to Gastroenterology Routine Consulting Provider: Kameron Olivo Reason for consultation: Hematochezia 03/19/24 15:51 Consult to General Surgery Stat Consulting Provider: [facility] General Surgeons Reason for consultation: Diverticular bleed Has provider been notified: Yes 03/22/24 07:35 Consult to Bariatric Surgery Routine Consulting Provider: Vern Hemphill Reason for consultation: s/p sleeve gastrectomy.. GIb ? related DS: Diagnosis Discharge Diagnosis (1) Hematochezia: Status: Acute (2) GI (gastrointestinal bleed): Status: Acute DS: Summary Hospital Course Hospital Course: Chief Complaint: Bloody stools, abd pain Pt is a 48-year-old Macedonian-speaking female with a PMH significant for mild intermittent asthma, anemia, HTN no longer on meds, GERD, and hx of bariatric surgery?in 2022 who presents to the ED with?abdominal pain and bloody diarrhea since early this morning. Patient reports yesterday she experienced some mild right-sided abdominal discomfort and one episode of loose stool, but otherwise felt well and was eating and drinking normally. This morning at approximately 04:00 patient was awakened from sleep with central abdominal pain and cramping she rates a 6/10. Patient then went to the bathroom and had multiple episodes of bloody diarrhea with clots. Patient experienced nausea but no vomiting. Was also lightheaded and dizzy. Denies fever, chills. Did not eat anything suspicious or have any sick contacts with similar symptoms. No shortness a breath, difficulty breathing, or cough. Denies chest pain/pressure, palpitations. Patient has not experienced similar symptoms in the past. In the ED pt was tachycardic up to 125 and was soft BP as low as 92/56. Labs were significant for initial H&H 10.5/31.5 with repeat 3 hours later 9.6/29.3 and stool positive for occult blood, otherwise grossly unremarkable and around baseline for patient. Leukocytosis. No significant electrolyte abnormalities. Renal and hepatic function baseline. GI panel and C diff negative. CT of abdomen and pelvis wo/w IV contrast found no evidence of active GI bleeding or other acute abnormality in abdomen or pelvis. 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 EKG demonstrated sinus tachycardia of 124 without evidence of significant ST elevations or depressions. Pt was treated with 3L IVF, Protonix, famotadine IV, and transfused 1 unit of PRBCs. Pt will be admitted to the hospital for treatment and further evaluation of painful hematochezia concerning lower GI bleed. Hospital course: 48-year-old female with a history of morbid obesity, asthma, hypertension (no longer on medications), GERD status post laparoscopic sleeve gastrectomy, hiatal hernia repair, intraoperative upper endoscopy, gastropexy, and lysis of adhesions in August 2022. She also has chronic iron deficiency anemia and has been inconsistent with follow-up appointments and diet recommendations. The patient presented on 03/17 with abdominal pain and bloody bowel movements. Her hemoglobin on admission was 10.6. She was transfused 1 unit at that time. A colonoscopy was performed on 03/[address] Decker, which revealed no active bleeding, diverticulosis, and no polyps or masses. The patient?s underlying anemia was stable, requiring no transfusions at that time. Following the colonoscopy, her diet was advanced in preparation for discharge, but she experienced another episode of rectal bleeding, accompanied by tachycardia, and her hemoglobin dropped to 8. A CTA on 03/19 showed no evidence of active GI bleeding. Incidental findings included cholecystectomy, gastric sleeve, colonic diverticulosis without diverticulitis, and a periumbilical hernia containing fat. She was transfused with 2 units of RBCs. IR was consulted for a potential angiogram with embolization, but it was deferred due to the absence of active bleeding on CTA. The patient continued to have intermittent bleeding and received an additional 2 units of RBCs. Surgery was consulted, and a tagged red cell scan was performed on 03/21, which also showed no active bleeding. On 03/22, the patient underwent an EGD by Dr. Nielsen for upper abdominal pain. The findings were a hiatal hernia and a Schatzki ring. A few hours after the EGD, the patient had another large watery, bloody bowel movement. GI recommended an angiogram if bleeding episodes persisted, with possible embolization as the next step. Bariatrics was consulted and confirmed that there was no correlation between her bariatric surgery and the current presentation. In total she has received 5 units of RBC, initial hemoglobin was 10.5 now 9.8 Time Attestation Discharge Coordination Time (in mins): 45 Quality: Safe Use of Opioids Does Pt have an Active Cancer Diagnosis on the Problem List?: No Quality: Stroke Does the patient have a stroke diagnosis?: No Physical Exam Vital Signs: Vital Signs: Last Vital Signs Temp 98.1 F 03/23/24 11:19 Pulse 79 03/23/24 11:19 Resp 18 03/23/24 11:19 BP 125/72 03/23/24 11:19 Pulse Ox 99 03/23/24 11:19 O2 Del Method Room Air 03/23/24 11:19 BMI result Body Mass Index 33.6 General: AO X 3, no acute distress Resp: CTA bilateral CVS: S1,S2,RRR GI: +BS, NT, no distention Skin: No rash Neuro: motor grossly intact Psych: appropriate affect DS: Data Data Completed and Pending Completed studies during hospitalization [Text1]: Procedures Excision of Stomach, Percutaneous Endoscopic Approach, Vertical (08/10/22) Release Omentum, Percutaneous Endoscopic Approach (08/10/22) Repair Diaphragm, Percutaneous Endoscopic Approach (08/10/22) Pending studies at discharge: Pending at discharge 03/22/24 14:31 Surgical [PTH] Routine Labs on day of discharge: Laboratory Results - last 24 hr 03/22/24 03/23/24 18:58 08:26 WBC 5.7 RBC 3.19 L Hgb 10.4 L 9.8 L Hct 28.2 L 27.7 L MCV 86.8 MCH 30.7 MCHC 35.4 H RDW 13.0 Plt Count 241 D MPV Not Reportable Absolute Nucleated RBC 0.000 Nucleated RBC % (auto) 0.0 Sodium 141 Potassium 3.9 Chloride 107 Carbon Dioxide 25 Anion Gap 13 BUN 5 L Creatinine 0.51 Estim Creat Clear Calc 154.4 Estimated GFR > 60 Random Glucose 84 Calcium 8.7 Discharge Plan Discharge Anticipated Discharge Date/Time: 03/19/24 09:48 Patient Disposition: Home, Self-Care Discharge Diagnosis: gib, acute blood loss anemia Referrals: Physician,Unknown J [Physician] - 1 Week Discharge Medications: Continued calcium citrate-vitamin D3 [Calcium Citrate + D] 315 mg-5 mcg (200 unit) tablet 1 tab PO DAILY Qty: 60 11RF vitamin A palmitate 3,000 mcg (10,000 unit) capsule 3,000 mcg PO DAILY Qty: 30 6RF pantoprazole 40 mg Tablet,Delayed Release (Dr/Ec) 40 mg PO BID ferrous sulfate 325 mg (65 mg iron) Tablet,Delayed Release (Dr/Ec) 325 mg PO DAILY Discharge Orders: Discharge Order (Routine); Ordered 03/23/24 Ordered By: Paolo Olivas Diet: Advance to usual diet Activity on Discharge: As tolerated Stand Alone Forms: Patient Portal Discharge page Print Language: Macedonian Care Plan Goals: resolution and work up of gi bleeding Health Concerns: gi bleeding anemia diverticulosis Plan of Treatment: Transfer to [facility] for consideration of angiogram with embolization Assessment: see above
--- NOTE | 2024-03-23 13:49 | MHC.CM.PN ---
pt. being transferred to [facility].
--- NOTE | 2024-03-23 14:08 | HO.POSTANES ---
Post Anesthesia Evaluation Post Anesthesia Evaluation Date of Service: 03/23/24 Vital Signs: Vital Signs Temp Pulse Resp BP Pulse Ox O2 Del Method 03/23/24 11:19 98.1 F 79 18 125/72 99 Room Air 03/23/24 07:10 98.1 F 69 18 116/64 98 Room Air 03/23/24 04:00 97.6 F 69 20 117/78 98 Room Air Anesthesia: Monitored Mental Status: Awake Pain Control: Satisfactory Nausea/Vomiting: None Hydration: Adequate Anesthesia-Related Issues: No Anes. Related Issues
[2024-03-23 14:22] VITALS: O2SAT 99
--- NOTE | 2024-03-23 14:42 | P.PNGS_ITS ---
Subjective Subjective Date of Service: 03/23/24 Interval history: Patient had an episode of passing dark material with her stool earlier today Physical Exam 2 Vital Signs: Vital Signs: Last Vital Signs Temp 98.1 F 03/23/24 11:19 Pulse 79 03/23/24 11:19 Resp 18 03/23/24 11:19 BP 125/72 03/23/24 11:19 Pulse Ox 99 03/23/24 14:22 O2 Del Method Room Air 03/23/24 14:22 BMI result Body Mass Index 33.6 GI: Other: Abdomen is little tender in the epigastric area no guarding no rebound no peritoneal signs active bowel sounds Objective Data Active Medications Acetaminophen (Acetaminophen 325 Mg Tablet) 650 mg PO Q6H PRN PRN Reason: Pain, Mild (Pain Scale 1-3), fever or headache Last Admin: 03/22/24 20:17 Dose: 650 mg Documented By: EZRA Comments: per pt requested for headache Benzonatate (Benzonatate 100 Mg Capsule) 100 mg PO TID PRN PRN Reason: Cough Calcium Carbonate (Calcium Carbonate 750 Mg Tab.Chew) 750 mg PO Q4H PRN PRN Reason: Heartburn Ferrous Sulfate (Ferrous Sulfate 324 Mg Tablet.) 324 mg PO DAILY [facility] Last Admin: 03/23/24 08:04 Dose: 324 mg Documented By: TRACY Lidocaine (Lidocaine 4 % Patch Adh..Patch) 1 patch TRANSDERMA DAILY [facility]; Protocol Last Admin: 03/23/24 08:06 Dose: 1 patch Documented By: TRACY Magnesium Hydroxide (Milk Of Magnesia 30 Ml Oral.Susp) 30 ml PO DAILY PRN PRN Reason: Constipation Melatonin (Melatonin 3 Mg Tablet) 6 mg PO BEDTIME PRN PRN Reason: Insomnia Naloxone HCl (Naloxone Hcl 0.4 Mg/Ml Vial) 0.04 mg IVPUSH Q5M PRN PRN Reason: Excessive sedation or RR < 8 Naloxone HCl (Naloxone Hcl 0.4 Mg/Ml Vial) 0.04 mg IVPUSH Q5M PRN PRN Reason: Excessive sedation or RR < 8 Omeprazole (Omeprazole 20 Mg Capsule.) 20 mg PO DAILY@0630 [facility] Last Admin: 03/23/24 05:57 Dose: 20 mg Documented By: EZRA Oxycodone HCl (Oxycodone Hcl Immed Release 5 Mg Tablet) 5 mg PO Q6H PRN PRN Reason: Pain, Severe (Pain Scale 7-10) Last Admin: 03/23/24 11:50 Dose: 5 mg Documented By: TRACY Sodium Chloride (0.9 % Sodium Chloride Flush 3 Ml Syringe) 3 ml IVFLUSH [facility] Last Admin: 03/23/24 08:08 Dose: 3 ml Documented By: TRACY Labs 03/23/24 08:26 03/23/24 08:26 Labs: Laboratory Results - last 24 hr 03/23/24 08:26 MCV 86.8 MCH 30.7 MCHC 35.4 H RDW 13.0 Plt Count 241 D MPV Not Reportable Absolute Nucleated RBC 0.000 Nucleated RBC % (auto) 0.0 Anion Gap 13 Estim Creat Clear Calc 154.4 Estimated GFR > 60 Random Glucose 84 Calcium 8.7 Procedures Date of Service Date of Service: 03/23/24 Progress Note: A&P Assessment and plan (1) GI (gastrointestinal bleed): Status: Acute Assessment and Plan: 48-year-old female with GI bleed question source. Hemodynamically stable. H and H is a little lower today. Family's frustrated wants to go to [facility]. She has already had upper and lower endoscopies which have not revealed any findings as well as a tagged red blood cell scan. Unable to do an angiogram here this weekend and currently no evidence of active bleeding. Currently no surgical intervention is indicated Time Spent With Patient Time: Total time managing care of this patient today ____ minutes. Quality Stroke Does the patient have a stroke diagnosis?: No VTE Prior VTE?: No VTE Risk Level:: Medical - moderate - high VTE Device Contraindication: N/A - Device Ordered VTE Drug Contraindication: Treatment Not Indicated
[2024-03-23 15:30] VITALS: BP 116/67; PULSE 77; RESP 20; TEMP 36.1; O2SAT 100
== END 2024-03-23 16:36 | disposition home or self-care (01) | DRG 244 ==
LOC: HO.ED 09:59 → HO.EDOVER 12:37 → HO.S3 14:39 → HO.EDOVER 14:49 → HO.IMC 03-18 16:51
PROVIDERS: Internal Medicine; Internal Medicine Gastroenterology; Physician Assistant Medical; Admitting Provider Student in an Organized Health Care Education/Training Program; Emergency Provider Emergency Medicine Emergency Medical Services; PCP Internal Medicine Geriatric Medicine; Visit Provider Internal Medicine
PROC: 0DJD8ZZ Inspection of Lower Intestinal Tract, Via Natural or Artificial Opening Endoscopic (ICD-10-PCS; CPT 45378; principal; 2024-03-18 15:00)
PROC: 0DB78ZX Excision of Stomach, Pylorus, Via Natural or Artificial Opening Endoscopic, Diagnostic (ICD-10-PCS; principal; 2024-03-22 14:00)
DX: K57.31 Diverticulosis of large intestine without perforation or abscess with bleeding (principal); D62 Acute posthemorrhagic anemia; K22.2 Esophageal obstruction; G47.33 Obstructive sleep apnea (adult) (pediatric); K44.9 Diaphragmatic hernia without obstruction or gangrene; Z98.84 Bariatric surgery status; K64.8 Other hemorrhoids; K64.4 Residual hemorrhoidal skin tags; J45.20 Mild intermittent asthma, uncomplicated; Z79.899 Other long term (current) drug therapy
CPT/HCPCS: 36415; 74178; 78278; 80048; 80053; 82272; 85014; 85018; 85025; 85027; 85610; 86850; 86900; 86901; 86923; 87493; 87507; 88305; 88342; 93005; 99285; A9512; J1596; J2470; J2704; J7120; P9016; Q9967

== ENCOUNTER → 2024-03-17 12:29 | Outpatient (BNV) | payer MEDICAID, SELFPAY | PROVIDERS: Admitting Provider Student in an Organized Health Care Education/Training Program; Emergency Provider Emergency Medicine Emergency Medical Services; Visit Provider Student in an Organized Health Care Education/Training Program | DX: K92.1 Melena (principal); K92.2 Gastrointestinal hemorrhage, unspecified | CPT/HCPCS: 99223; 99232; 99239; 99499 ==

== ENCOUNTER → 2024-03-17 12:29 | Outpatient (BNV) | payer MEDICAID, SELFPAY | PROVIDERS: Admitting Provider Student in an Organized Health Care Education/Training Program; Emergency Provider Emergency Medicine Emergency Medical Services; PCP Internal Medicine Geriatric Medicine; Visit Provider Physician Assistant Surgical | DX: Z98.84 Bariatric surgery status (principal) | CPT/HCPCS: 99222 ==

== ENCOUNTER → 2024-03-17 12:29 | Outpatient (BNV) | payer MEDICAID, SELFPAY | PROVIDERS: Admitting Provider Student in an Organized Health Care Education/Training Program; Emergency Provider Emergency Medicine Emergency Medical Services; PCP Internal Medicine Geriatric Medicine; Visit Provider Surgery | DX: K92.1 Melena (principal) | CPT/HCPCS: 99222; 99231; 99232; 99499 ==

== ENCOUNTER 2024-04-25 13:22 | Outpatient (AMB) | payer MEDICAID, SELFPAY ==
--- NOTE | 2024-04-25 13:29 | MHC.OFFVISWM ---
VS Expanded 04/25/24 13:42 BP 113/57 L Blood Pressure Location Rt brachial Blood Pressure Position Sitting Pulse 78 Pulse Source Pulse Oximeter Temp 98.2 F Temperature Source Temporal Artery Scan Pulse Oximetry 99 Oxygen Delivery Method Room Air Height 5 ft 4 in Weight 194 lb 12.8 oz BMI 33.4 Body Fat % 39.6 Body Fat Mass 77.2 Fat Free Mass 117.6 Visceral Fat Rating 10.0 Body Water % 42.9 Body Water Mass 83.6 Muscle Mass/Score 111.6 Basal Metabolic Rate/Score 1,617 Intake Visit Reasons: (OV) PO LSG 08/10/22 (ER Follow Up) Cigar Tobacco Processing Supervisor Required: Yes Cigar Tobacco Processing Supervisor Services: Cigar Tobacco Processing Supervisor Present Cigar Tobacco Processing Supervisor Name: office cmi Allergies ibuprofen [From Motrin] Allergy (Intermediate, Verified 04/25/24 13:39) Rash naproxen [Naprosyn] Allergy (Intermediate, Verified 04/25/24 13:39) Rash prednisone [PREDNISONE] Allergy (Intermediate, Verified 04/25/24 13:39) RASH, itching Medication List - Last Reconciled 04/25/24 by LUCINDA Munoz calcium citrate-vitamin D3 315 mg-5 mcg (200 unit) (Calcium Citrate + D) 1 tab PO DAILY ferrous sulfate 325 mg PO DAILY pantoprazole 40 mg PO BID vitamin A palmitate 3,000 mcg PO DAILY HPI Comments Details: Patient is a pleasant 48-year-old female who is post sleeve gastrectomy performed on 08/10/2022. She has not been seen in the office since February 06 2023. At that time her weight was 185 lb with a BMI of 31.8. Weight today is 194.8 lb with a BMI of 33.4. She reports she had weight gain to 208 lb due to increased stress and anxiety but has since lost weight by adhering to a more structured meal plan. She has been having difficulty with feelings of palpitations. This has also had associated chest pain for which she has been evaluated by her primary care doctor and referred to [facility] Cardiology. Her appointment is not until August of 2024. I was able to call the office to ask them to put her on a wait list if someone canceled. She has not been exercising much as a result of this. Meal plan: 2 ensure protein rtd shakes per day (16 gm each) meal with protein and veggies, not measuring Exercise plan: none recently due to rapid HR Any post op complications: none AURELIANO: resolved DM: never HTN: resolved Hyperlipidemia: never GERD:?0-5 scale ??0 = no symptoms ??1 = symptoms noticeable but not bothersome 2 =symptoms bothersome but not daily ? 3 = symptoms bothersome and daily 4 = symptoms affect daily activities 5 = symptoms are incapacitating, unable to do daily activities ? How bad is the heartburn: 0 ? Heartburn while lying down: 0 ? Heartburn when standing up: 0 ? Heartburn after meals: 0 ? Does heartburn change your diet: 0 ? Does heartburn wake you up from sleep: 0 ? Do you have difficulty swallowin ? Do you have pain with swallowin ? If you take medicine for your reflux, does this affect your daily life: 0 Satisfaction with present condition - satisfied or not satisfied: dissatisfied [facility] Medical History Pre-diabetes GERD (gastroesophageal reflux disease) Hiatal hernia HTN (hypertension) Vitamin deficiency Fatigue Diaphragmatic hernia Dyspareunia in female Heavy menstrual bleeding Vitamin B1 deficiency Prediabetes Obstructive sleep apnea treated with continuous positive airway pressure (CPAP) Asthma Acid reflux Umbilical hernia Surgical History S/P laparoscopic sleeve gastrectomy History of delivery History of endoscopy History of umbilical hernia repair (10/06/17) History of cholecystectomy History of tubal ligation Family History Father No problems noted. Mother Diabetes Hypertension FH: mental illness Maternal Grandmother Hypertension Maternal Uncle Cancer Leukemia Family/Other FH: mental illness Son No problems noted. Son Asthma Glaucoma Son No problems noted. Sister FH: mental illness High cholesterol Brother High cholesterol Social History Household Members: Spouse and Other Household Members Other:: mother Housing: Apartment Are you a primary skin care consultant to a significant other at home: Yes Do you presently have visiting nurse or other home services: No Alcohol intake: never Patient Tobacco Use Status: Never used Tobacco Second Hand Smoke Exposure: No service: No Current occupational status: employed Physical Exam Const General: cooperative and no acute distress Orientation/consciousness: patient oriented x3 Resp Effort & Inspection: normal respiratory effort Auscultation: clear to auscultation bilaterally Cardio Rate: regular rate Rhythm: regular rhythm GI Inspection: Yes normal to inspection and Yes incision (well healed) Palpation (GI): Soft to palpation and no masses Neuro General: patient oriented x3 Assessment & Plan Assessment & Plan (1) Obesity: Code(s): E66.9 - Obesity, unspecified Category: Medical Plan: Check yearly labs. Meal plan to consist of to ensure shakes and a meal with 8 forks of protein and 8 of vegetables. Encouraged to walk as she is able. Encouraged to call her primary care physician for referral to behavioral health given in increase in anxiety. We will have her return to the office in approximately 4-5 weeks. Orders: Orders Zinc Today E66.9 - Obesity, unspecified, I10 - Essential (primary) hypertension C Reactive Protein Today E66.9 - Obesity, unspecified, I10 - Essential (primary) hypertension Vitamin B1 Today E66.9 - Obesity, unspecified, I10 - Essential (primary) hypertension Ferritin Today E66.9 - Obesity, unspecified, I10 - Essential (primary) hypertension Insulin Today E66.9 - Obesity, unspecified, I10 - Essential (primary) hypertension Hemoglobin A1c Today E66.9 - Obesity, unspecified, I10 - Essential (primary) hypertension Complete Blood Count Auto Diff Today E66.9 - Obesity, unspecified, I10 - Essential (primary) hypertension Lipid Panel Today E66.9 - Obesity, unspecified, I10 - Essential (primary) hypertension IRON PROFILE Today E66.9 - Obesity, unspecified, I10 - Essential (primary) hypertension Vitamin B12 and Folate Today E66.9 - Obesity, unspecified, I10 - Essential (primary) hypertension Vitamin A Today E66.9 - Obesity, unspecified, I10 - Essential (primary) hypertension TSH reflex Free T4 Today E66.9 - Obesity, unspecified, I10 - Essential (primary) hypertension Vitamin D 25-OH Total Today E66.9 - Obesity, unspecified, I10 - Essential (primary) hypertension Basic Metabolic Panel Today E66.9 - Obesity, unspecified, I10 - Essential (primary) hypertension
[2024-04-25 13:42] VITALS: BP 113/57; PULSE 78; TEMP 36.8; O2SAT 99; BMI 33.4
== END 2024-04-25 14:17 | disposition home or self-care (01) ==
PROVIDERS: PCP Internal Medicine Geriatric Medicine; Visit Provider Physician Assistant Surgical
DX: E66.9 Obesity, unspecified (principal)
CPT/HCPCS: 99214

== ENCOUNTER → 2024-04-25 13:22 | Outpatient (BNVA) | payer MEDICAID, SELFPAY | PROVIDERS: PCP Internal Medicine Geriatric Medicine; Visit Provider Physician Assistant Surgical | DX: E66.9 Obesity, unspecified (principal); I10 Essential (primary) hypertension; Z71.3 Dietary counseling and surveillance; Z68.33 Body mass index [BMI] 33.0-33.9, adult; Z98.84 Bariatric surgery status | CPT/HCPCS: 99212 ==

== ENCOUNTER 2024-04-26 08:07 | Outpatient (REF) | payer MEDICAID, SELFPAY ==
[2024-04-26 08:29] LABS: MANUAL DIFF FLAG NO
[2024-04-26 08:45] LABS: Basophils Percent Auto 0.9 % (0-2); Eosinophils Absolute Auto 0.1 X10*3/uL (0.0-0.4); Eosinophils Percent Auto 2.5 % (0-4); Hematocrit 31.7 % (37.0-47.0); Hemoglobin 10.2 g/dl (12.0-16.0); Imm Gran Abs Auto 0.01 X10*3/uL (0.00-0.03); Imm Gran Pct Auto 0.2 % (0.0-0.4); Lymphocytes Absolute Auto 1.3 X10*3/uL (1.2-4.9); Lymphocytes Percent Auto 29.5 % (20-40); Mean Corpuscular HGB Conc 32.2 g/dl (31.0-35.0); Mean Corpuscular Hemoglobin 27.7 pg (27.0-33.0); Mean Corpuscular Volume 86.1 fL (80.0-98.0); Mean Platelet Volume 8.7 fL (9.4-12.3); Monocytes Absolute Auto 0.4 X10*3/uL (0.1-1.2); Monocytes Percent Auto 8.1 % (2-11); Neutrophils Absolute Auto 2.6 x10*3/uL (2.0-8.3); Neutrophils Percent Auto 58.8 % (45-73); Platelet Count 383 X10*3/uL (160-400); Red Blood Count 3.68 X10*6/uL (4.20-5.50); Red Cell Distribution Width 13.3 % (11.0-16.0); White Blood Count 4.3 X10*3/uL (4.8-10.8)
[2024-04-26 08:55] LABS: Estimated Average Glucose 94 mg/dL; Hemoglobin A1C 78.1058 umol/L; Hemoglobin A1c % 4.9 % (<6.0); Total Hemoglobin (HGBA1C) 2570.2204 umol/L
[2024-04-26 09:26] LABS: Anion Gap 8 (12-20); Blood Urea Nitrogen 12 mg/dL (9-16); C Reactive Protein < 0.10 mg/dL (< or = 0.50); Calcium 9.4 mg/dL (8.4-10.2); Carbon Dioxide 29 mmol/L (22-29); Chloride 107 mmol/L (96-108); Cholesterol 186 mg/dL (<200); Estimated Glomerular Filt Rate > 60; Glucose Random 89 mg/dL (60-115); HDL Cholesterol 50 mg/dL (>40); Iron 16 mcg/dL (30-160); LDL Cholesterol Calculated 120 mg/dL (<100); Percent Iron Saturation 5 % (15-50); Potassium 3.9 mmol/L (3.3-5.1); Sodium 140 mmol/L (135-145); Total Iron Binding Capacity 316 mcg/dL (228-428); Triglycerides 80 mg/dL (<150); Unsaturated Iron Binding 300 ug/dL
[2024-04-26 09:31] LABS: Ferritin 14 ng/mL (10-250); Insulin 4 uU/mL (2-29); TSH reflex Free T4 0.79 uIU/mL (0.32-4.0); Vitamin D 25-OH Total 45.9 ng/mL (>30)
[2024-04-26 09:45] LABS: Folate 15.4 ng/mL (> or = 4.0); Vitamin B12 1282 pg/mL (200-900)
[2024-04-30 16:39] LABS: Zinc 68 mcg/dL (60-130)
[2024-05-02 16:15] LABS: Vitamin B1 24 nmol/L (8-30)
[2024-05-04 13:13] LABS: Vitamin A 33 mcg/dL (38-98)
== END 2024-04-26 08:08 | disposition home or self-care (01) ==
LOC: HO.LAB 08:07
PROVIDERS: PCP Internal Medicine Geriatric Medicine; Visit Provider Physician Assistant Surgical
DX: I10 Essential (primary) hypertension (principal); E66.9 Obesity, unspecified
CPT/HCPCS: 36415; 80048; 80061; 82306; 82607; 82728; 82746; 83036; 83525; 83540; 84425; 84443; 84590; 84630; 85025; 86140

== ENCOUNTER 2024-08-19 09:24 | Outpatient (REF) | payer MEDICAID, SELFPAY | END 2024-08-19 09:25 | disposition home or self-care (01) | LOC: HO.HHCX 09:24 | PROVIDERS: Visit Provider Emergency Medicine | DX: M25.511 Pain in right shoulder (principal) | CPT/HCPCS: 73030 ==

== ENCOUNTER → 2024-08-19 09:25 | Outpatient (BNV) | payer MEDICAID, SELFPAY | PROVIDERS: Visit Provider Radiology Diagnostic Radiology | DX: M25.511 Pain in right shoulder (principal) | CPT/HCPCS: 73030 ==

== ENCOUNTER 2024-08-27 09:12 | Outpatient (AMB) | payer MEDICAID, SELFPAY ==
[2024-08-27 09:26] VITALS: BP 120/78; PULSE 72; BMI 36.7
--- NOTE | 2024-08-27 09:26 | MHC.OFFVIS ---
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 Intake Note: New patient dx palpitation with ekg c/o a lot of palpitations mostly with activity Needle Punch Machine Operator Required: Yes Needle Punch Machine Operator Services: Needle Punch Machine Operator Present Needle Punch Machine Operator Name: nico Levine Allergies ibuprofen [From Motrin] Allergy (Intermediate, Verified 04/25/24 13:39) Rash naproxen [Naprosyn] Allergy (Intermediate, Verified 04/25/24 13:39) Rash prednisone [PREDNISONE] Allergy (Intermediate, Verified 04/25/24 13:39) RASH, itching Medication List - Last Reconciled 08/27/24 by Masood Moreno MD albuterol sulfate 90 mcg/actuation (Ventolin HFA) 2 puffs inhalation Q6H PRN calcium citrate-vitamin D3 315 mg-5 mcg (200 unit) (Calcium Citrate + D) 1 tab PO DAILY ferrous sulfate 325 mg PO DAILY pantoprazole 40 mg PO BID vitamin A palmitate 3,000 mcg PO DAILY HPI Comments Details: Traci was referred here for symptoms of palpitation as well as chest pain. 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 She says she started having palpitation in 2022, mentioned to her primary care physician and EKG was done which was within normal limits. Done the symptoms seemed to have subsided for some time. More recently she was admitted to the hospital with acute GI bleed and her symptoms started to come back again. She describes symptoms as that she gets right-sided chest pain followed by onset of rapid heart rate. Symptoms can last up to 10 minutes. Associated with sometimes shortness of breath and lightheadedness. Symptoms then subside after relaxing. Can happen up to about twice a week. Symptoms are also present when she exercises sometimes and sometimes at rest. She denies any syncopal episodes. No other heart failure symptoms. [facility] Medical History Pre-diabetes GERD (gastroesophageal reflux disease) Hiatal hernia HTN (hypertension) Vitamin deficiency Fatigue Diaphragmatic hernia Dyspareunia in female Heavy menstrual bleeding Vitamin B1 deficiency Prediabetes Obstructive sleep apnea treated with continuous positive airway pressure (CPAP) Asthma Acid reflux Umbilical hernia Surgical History S/P laparoscopic sleeve gastrectomy History of delivery History of endoscopy History of umbilical hernia repair (10/06/17) History of cholecystectomy History of tubal ligation Family History Father No problems noted. Mother Diabetes Hypertension FH: mental illness Maternal Grandmother Hypertension Maternal Uncle Cancer Leukemia Family/Other FH: mental illness Son No problems noted. Son Asthma Glaucoma Son No problems noted. Sister FH: mental illness High cholesterol Brother High cholesterol Social History Household Members: Spouse and Other Household Members Other:: mother Housing: Apartment Are you a primary residential child care counselor to a significant other at home: Yes Do you presently have visiting nurse or other home services: No Alcohol intake: never Patient Tobacco Use Status: Never used Tobacco Second Hand Smoke Exposure: No service: No Current occupational status: employed Review of Systems Const Denies chills, Denies daytime sleepiness, Denies fatigue, Denies fever(s), Denies frequent falls, Denies poor appetite, Denies snoring, Denies stops breathing during sleep, Denies weakness, Denies weight gain and Denies weight loss Eyes Denies loss of vision ENT Denies dizziness and Denies hearing loss Card Denies chest pain, Denies claudication, Denies leg edema, Denies lightheadedness, Denies palpitations, Denies dyspnea, Denies dyspnea on exertion and Denies orthopnea Resp Denies cough, Denies excessive phlegm production, Denies dyspnea, Denies dyspnea on exertion, Denies snoring and Denies wheezing GI Denies abdominal pain, Denies hematochezia, Denies change in bowel habits, Denies nausea and Denies vomiting Denies urinary frequency and Denies dysuria Musc Denies arthralgias, Denies muscle weakness, Denies numbness and Denies other (frequent falls) Skin/Breast Denies nail changes and Denies rash Neuro Denies Abnormal speech present, Denies dizziness, Denies frequent falls, Denies loss of vision, Denies memory loss, Denies numbness and Denies weakness Psych Denies depression and Denies memory loss Endo Denies fatigue and Denies palpitations Aydin/Lymph Reports easy bruising and Reports other (anemia) Aller/Immun Denies wheezing Physical Exam Vital Signs: Last Vital Signs Pulse 72 08/27/24 09:26 BP 120/78 08/27/24 09:26 BMI result Body Mass Index 36.7 Const General: cooperative, comfortable, no acute distress, alert and awake Nutritional Appearance: obese Orientation/consciousness: patient oriented x3 Limitations: no limitations HEENT Head: Yes normocephalic and Yes atraumatic Neck Neck: Yes trachea midline, Yes supple and Yes no JVD Resp Effort & Inspection: normal respiratory effort Auscultation: clear to auscultation bilaterally Cardio Jugular venous distension: no JVD Palpation: normal PMI Rate: regular rate Rhythm: regular rhythm Heart sounds: S1 normal heart sound present, S2 normal heart sound present, no click, no gallops, no murmurs and no rubs GI Auscultation: normal bowel sounds Skin General skin exam: no rashes or lesions noted Neuro General: patient oriented x3 and no focal motor deficits Speech: No Abnormal speech present Extrem General: Yes no clubbing, cyanosis or edema Psych Appearance: grossly normal Office Procedures EKG Details: EKG shows normal sinus rhythm with poor R-wave progression most likely lead placement with no acute ST T wave changes 89297-Vcudjzagqnzzlnpji, Complete Assessment & Plan Assessment & Plan (1) Palpitations: Code(s): R00.2 - Palpitations Category: Medical Plan: Patient was symptoms of palpitation which could represent SVT and/or inappropriate sinus tachycardia. Less likely that this represents atrial fibrillation. Possibility of extra systoles exist. She has symptoms twice a day week, will obtain a 7 day Holter monitor to further assess for the same. Will also obtain echocardiogram to evaluate for cardiac structure and function. Would avoid pharmacotherapy at this point time. Stress mitigation strategies as well as avoidance of stimulants was discussed. (2) Atypical chest pain: Code(s): R07.89 - Other chest pain Category: Medical Plan: Patient with atypical right-sided chest pain with risk factors. She has risk factor of hypertension currently not on any medications. Blood pressure appears to be well controlled. Will obtain a treadmill stress test to evaluate for myocardial ischemia. Continue participate and long run with aggressive weight loss program. Target goal LDL less than 100 mg/dL being pursue through office. Can consider coronary calcium score. Will follow up in the clinic in 6 weeks time Thank you for allowing me to partake in his care Orders: Orders ECG 7 day holter monitor Today R00.2 - Palpitations CA echo transthoracic complete Today R00.2 - Palpitations CA stress test Today R07.89 - Other chest pain Coding Level of Care Code New Pt Level 4 (60898) Complex EM visit Add On G2211 Diagnoses Palpitations R00.2 Atypical chest pain R07.89 CPT Codes EKG - CPT: 15150-Vmuigxsjkrfpeaavy, Complete ([id number])
--- OUTSIDE RECORDS SUMMARY | 2024-08-27 09:52 | XMS_ITS ---
Author Organization [facility] Address [address] [place] [address] Care Team Providers Care Independent Living Specialist Name Role Phone Linda Lopez Primary Care Provider Unavailab Jamarcus Lopez Unavailable [phone] REASON FOR VISIT pathology Encounters Encounter Location Date Provider Diagnosis [facility] [address] [place] [address] 04/03/2024 Jamarcus Banda PLAN OF TREATMENT Next Appt Details Provider Name:Jamarcus Banda , 12/05/2024 11:00:00 AM, [address], [address], [place], [address],
--- OUTSIDE RECORDS SUMMARY | 2024-08-27 09:52 | XMS_ITS | Patient Health Record ---
Author Organization [facility] Address [address] [place] [address] Care Team Providers Care Sewing Machine Maintenance Mechanic Name Role Phone Linda Lopez Primary Care Provider Jamarcus Anderson Unavailable [phone] ALLERGIES Allergen (clinical drug ingredient) Drug/Non Drug Allergy documented on EMR Reaction Allergy Type Onset Date Status PredniSONE Unknown Drug Allergy Active naproxen Naproxen Unknown Drug Allergy Active Motrin Unknown Drug Allergy Active RESULTS Component Value Reference Range Notes Pathology Reviewed date:04/03/2024 08:25:28 AM Interpretation: Performing Lab:[facility], [address] [place] [address] Notes/Report: REASON FOR REFERRAL Referring Provider First Name Morales Referring Provider Last Name Name Referring Provider Speciality Internal M edicine Referred Organization [facility] Referred Provider Jamarcus Banda Referred Address [address] [facility],[address],[place], [place],[address], Referred Provider Specialty Gastroentero logy Referral Priority Routine MEDICATIONS Medication SIG (Take, Route, Frequency, Duration) Notes Start Date End Date Status Albuterol Active Omeprazole 20 MG 1 capsule Orally Onc e a day Active Fbtvhjstkk-AGRX-Osnlfuxx 50-325-40 MG TAKE ONE TABLET BY MOUTH THREE TIMES A DAY FOR 30 DAYS Oral for 6 Active Advair Diskus 500-50 MCG/DOSE INHALE ONE PUFF BY MOUTH TWICE A DAY Inhalation for 30 Active Dicyclomine HCl 20 MG TAKE ONE TABLET BY MOUTH FOUR TIMES A DAY Oral for 30 Just prn Active Atorvastatin Calcium 40 MG TAKE ONE TABL ET BY MOUTH EVERY DAY Oral for 30 Active traMADol HCl 50 MG (Schedule IV Drug) T MATT ONE TABLET BY MOUTH EVERY 12 HOURS Oral for 30 Active Lisinopril 5 MG TAKE ONE TABLET BY MOUTH TWICE A DAY Oral for 30 Active metFORMIN HCl 1000 MG TAKE ONE TABLET BY MOUTH TWICE A DAY WITH MEALS Oral for 30 Active Vitamin D3 1000 UNIT TAKE ONE TABLET BY MOUTH EVERY DAY Oral for 30 Active SOCIAL HISTORY Tobacco Use: Social History Observation Description Date Details (start date - stop date) Never Smoker NA - NA Sex Assigned At : Social History Observation Description Sex Assigned At Unknown Tobacco Use/Smoking Question Answer Notes Patient is a nonsmoker Alcohol Screen Question Answer Notes Did you have a drink containing alcohol in the p ast year? No Points 0 Interpretation Negative PROBLEMS Problem Type ICD Code Onset Dates Problem Status W/U Status Risk SNOMED Code Notes Problem Gastroesophageal reflux disease, esophagitis presence not specified (K21.9) Active confirmed 968250477 Problem Heartburn (R12) Active confirmed 804842 00 Problem Diverticulosis large intestine w/o perforation or abscess w/o bleeding (K57.30) Active confirmed Diverticul ar disease of colon (278888302) Problem Esophageal stricture (K22.2) Active confirmed Esophageal stricture (75071980) Encounters Encounter Location Date Provider Diagnosis [facility] [address] [place] [address] 08/07/2024 Jamarcus Banda [facility] [address] [place] [address] 04/03/2024 Jamarcus Banda [facility] [address] [place] [address] 08/05/2024 Jamarcus Banda PLAN OF TREATMENT Pending Test Test Name Order Date GI BIOPSY 01/03/2018 Future Test Test Name Order Date UPPER GI ENDOSCOPY 08/22/2017 Next Appt Details Provider Name:Jamarcus Banda , 12/05/2024 11:00:00 AM, [address], [address], [place], [address], Insurance Providers Payer Name Payer Address Payer Phone Subscriber Number Group Number Insured Name Patient Relationship to Insured Coverage Start Date Coverage End Date MEDICA[employer] OF [employer] [address] [place] [phone] [id number] CHUCHO HOLM Self - patient is the insured MEDICAL (GENERAL) HISTORY Medical History History ICD Code Denies NC,CVA,renal disease Hypertension NIDDM Asthma GERD--E[place] in 2009 [place]--she describes gastritis with probable H.pylori and a hiatal hernia--describes being treated with antibiotics Sleep apnea--uses CPAP Mild diverticulitis on CT scan in 7 Surgical History Surgery Date(Month/Year) Tubal ligation 1997 Cholecystectomy 1997
--- OUTSIDE RECORDS SUMMARY | 2024-08-27 09:52 | XMS_ITS | Clinical Summary ---
Author Organization [address] Address [address] [place] [phone] Phone Care Team Providers Care Sports Medicine Coordinator Name Role Phone Unavailable Primary Care Provider Unavailabl e Allergies No known active allergies Medications ferrous sulfate (FEOSOL) 325 mg (65 mg iron) tabletIndication s:Bariatric surgery status Take 1 tablet (325 mg total) by mouth 3 (three) times daily with meals. 30 tablet 2 01/29/2024 Active pantoprazole (PROTONIX) 40 mg tabletIndication s:Bariatric surgery status TAKE 1 TABLET (40 MG TOTAL) BY MOUTH DAILY. 90 tablet 3 07/25/2024 12:26 AM EST 05/30/2024 Active albuterol sulfate (VENTOLIN HFA) 90 mcg/actuation HFA aerosol inhaler INHALE 2 PUFFS INTO THE LUNGS EVERY 6 (SIX) HOURS NEEDED FOR WHEEZING. 18 g 11 05/30/2024 Active Active Problems No known active problems Encounters Date Type Department Care Team Description 05/30/[address] [address] Rachael Luna PA Medication Refill from Last 3 Months Immunizations Name Administration Dates Next Due Influenza, split virus, trivalent, Preservative Free 04/10/2024 Family History Medical History Relation Name Comments Diabetes Mother Heart failure Mother High cholesterol Mother Hypertension Mother Cancer Other Relation Name Status Comments Mother Other Social History Tobacco Use Types Packs/Day Years Used Date Smoking Tobacco: Never Passive Smoke Exposure: Past Smokeless Tobacco: Never Tobacco Cessation:Counseling Given: Not Answered Alcohol Use Standard Drinks/Week Comments Never 0 (1 standard drink = 0.6 oz pur e alcohol) PHQ-2 Answer Date Recorded PHQ-2 Total Score 0 03/15/2024 Comments Unknown Sex and Gender Information Value Date Recorded Sex Assigned at Not on file Legal Sex Female 3:08 PM EDT Gender Identity Not on file Sexual Orientation Not on file Last Filed Vital Signs Vital Sign Reading Time Taken Comments Blood Pressure 115/81 03/15/2024 8:50 AM EDT Pulse 65 03/15/2024 8:50 AM EDT Temperature 36.6 ??C (97.9 ??F) 03/15/2024 8:50 AM ED T Respiratory Rate - - Oxygen Saturation 98% 03/15/2024 8:50 AM EDT Inhaled Oxygen Concentration - - Weight 94.3 kg (208 lb) 03/15/2024 8:50 AM EDT Height 157.5 cm (5' 2 ) 03/15/2024 8:50 AM EDT Body Mass Index 38.04 03/15/2024 8:50 AM EDT Plan of Treatment Health Maintenance Due Date Last Done Comments Cervical cancer screening 1995 Colon cancer screening, Colonoscopy 2019 Covid-19 vaccine series ( season) 2024 06/14/2022, 11/10/2021, 12/26/2020, Additional history exists Shingles vaccine (Shingrix) (1 of 2 - Shingrix (RZV) 2 Dose Standard Series) 2024 Breast cancer screening 10/11/2024 10/11/2022, 10/11 Diabetes screening 01/28/2027 01/29/2024 Lipid disorder screening 01/28/2029 01/29/2024 Tetanus adult (Td q 10,TDAP once) 02/19/2029 02/19/2019 RSV Discussion (1 - 1-dose 75+ series) 2049 HIV screening Completed 01/29/2024 Hepatitis C screening Completed 01/29/2024 Influenza vaccine Completed 04/10/2024, , 06/14/2022, Additional history exists Meningococcal Vaccine Aged Out No chad balbir eligible based on patient's age to complete this topic Pneumococcal Vaccine (2 - 49 years) Aged Out No longer eligible based on patient's age to complete this topic Procedures Procedure Name Priority Date/Time Associated Diagnosis Comments HIV 1/2 AG/AB, W/REFLEXES (Q) Routine 01/29/2024 10:55 AM EDT Screen for STD (sexually transmitted disease) HEPATITIS C AB WITH REFLEX TO HCV PCR Routine 01/29/2024 10:55 AM EDT COMPREHENSIVE METABOLIC PANEL Routine 01/29/2024 10:51 AM EDT Screening for diabetes mellitus LIPID PANEL WITH REFLEX TO DIRECT LDL (Q) Routine 01/29/2024 10:51 AM EDT Screening for cholesterol level from Last 3 Months or Most Recently Relevant to Health Maintenance Results * HIV 1/2 ag/ab, w/reflexes (Q) (01/29/2024 10:55 AM EDT) HIV Ag/Ab, 4th Generation NON-REACT KIERAN NON-REACT KIERAN [facility] Comment: HIV-1 antigen and HIV-1/HIV-2 antibodies were not detected. There is no laboratory evidence of HIV infection. PLEASE NOTE: This information has been disclosed to you from records whose confidentiality may be protected by state law. ??If your state requires such protection, then the state law prohibits you from making any further disclosure of the information without the specific written consent of the person to whom it pertains, or as otherwise permitted by law. A general authorization for the release of medical or other information is NOT sufficient for this purpose. ?? For additional information please refer to http://education.FairShare.Apptopia/faq/THO707 (This link is being provided for informational/ educational purposes only.) The performance of this assay has not been clinically validated in patients less than 2 years old. Blood 01/29/2024 10:5 5 AM EDT 01/29/2024 10:56 AM EDT Narrative Resulting Agency Comment Performing Lab: ?Site ID: [id number] ?Name: [facility] ?Address: [address] [place] [phone] ?Director: Guilherme Quinteros M.D. Rachael JANE LAB BLOOD ORDERABLES F inal Result Performing Organization Address [facility] de Phone Number [facility] [address] [place] [address] * Hepatitis C Ab with reflex to HCV PCR (01/29/2024 10:55 AM EDT) Hepatitis C Ab NON-REACT KIERAN NON-REACT KIERAN [facility] Comment: HCV antibody was non-reactive. There is no laboratory evidence of HCV infection. In most cases, no further action is required. However, if recent HCV exposure is suspected, a test for HCV RNA (test code 44893) is suggested. For additional information please refer to http://education.WRG Creative Communication/faq/JYU78z9 (This link is being provided for informational/ educational purposes only.) 01/29/2024 10:5 5 AM EDT 01/29/2024 10:56 AM EDT Narrative Resulting Agency Comment Performing Lab: ?Site ID: [id number] ?Name: [facility] ?Address: [address] [place] [phone] ?Director: Guilherme Quinteros M.D. Rachael JANE LAB BLOOD ORDERABLES F inal Result Performing Organization Address [facility] de Phone Number [facility] [address] [place] [address] * (ABNORMAL) Lipid panel with reflex to direct LDL (Q) (01/29/2024 10:51 AM EDT) Cholesterol, Total 203(H) <200 mg/dL [facility] HDL 57 > OR = 50 mg/dL [facility] Triglycerides 119 <150 mg/dL [facility] LDL Cholesterol 123(H) mg/dL (calc) [facility] Comment: Reference range: <100 Desirable range <100 mg/dL for primary prevention; ?? <70 mg/dL for patients with CHD or diabetic patients with > or = 2 CHD risk factors. LDL-C is now calculated using the Lizzie calculation, which is a validated novel method providing better accuracy than the Friedewald equation in the estimation of LDL-C. Misael ANNE et al. BELLA. 2013;310(19): 9946-5575 (http://education.Tiny Prints/faq/KQF757) Chol/HDL Ratio 3.6 <5.0 (calc) [facility] Non-HDL Cholesterol 146(H) <130 mg/dL (calc) [facility] Comment: For patients with diabetes plus 1 major ASCVD risk factor, treating to a non-HDL-C goal of <100 mg/dL (LDL-C of <70 mg/dL) is considered a therapeutic option. 01/29/2024 10:5 1 AM EDT 01/29/2024 10:52 AM EDT Narrative Resulting Agency Comment Performing Lab: ?Site ID: [id number] ?Name: [facility] ?Address: [address] [place] [phone] ?Director: Guilherme Quinteros M.D. Rachael JANE LAB BLOOD ORDERABLES F inal Result [facility] [address] [place] [address] * (ABNORMAL) Comprehensive metabolic panel (01/29/2024 10:51 AM EDT) [facility] Glucose 79 65 - 99 mg/dL [facility] Comment: ? Fasting reference interval BUN 14 7 - 25 mg/dL [facility] Creatinine 0.41(L) 0.50 - 0.99 mg/dL [facility] eGFR (Creatinine) 121 > OR = 60 mL/min/1.7 3m2 [facility] BUN/Creatinine Ratio 34(H) 6 - 22 (calc) [facility] Sodium 137 135 - 146 mmol/L [facility] Potassium 4.4 3.5 - 5.3 mmol/L [facility] Chloride 102 98 - 110 mmol/L [facility] CO2 29 20 - 32 mmol/L [facility] Calcium 9.6 8.6 - 10.2 mg/dL [facility] Protein, Total 7.3 6.1 - 8.1 g/dL [facility] Albumin 4.1 3.6 - 5.1 g/dL [facility] Globulin 3.2 1.9 - 3.7 g/dL (calc) [facility] Albumin/Globulin Ratio 1.3 1.0 - 2.5 (calc) [facility] Bilirubin, Total 0.4 0.2 - 1.2 mg/dL [facility] Alkaline Phosphatase 39 31 - 125 U/L [facility] AST 12 10 - 35 U/L [facility] ALT 10 6 - 29 U/L [facility] 01/29/2024 10:5 1 AM EDT 01/29/2024 10:52 AM EDT Narrative Resulting Agency Comment Performing Lab: ?Site ID: [id number] ?Name: [facility] ?Address: [address] [place] [phone] ?Director: Guilherme Quinteros M.D. Rachael JANE LAB BLOOD ORDERABLES F inal Result [facility] [address] [place] [address] from Last 3 Months or Most Recently Relevant to Health Maintenance Insurance [place]
--- OUTSIDE RECORDS SUMMARY | 2024-08-27 09:52 | XMS_ITS | Clinical Summary ---
Author Organization [facility] Address [address] [place] [address] Care Team Providers Care Lathe Sander Name Role Phone Unavailable Primary Care Provider Unavailabl e Allergies Active Allergy Reactions Criticality Noted Date Comments Dexamethasone Itching Low 01/19/2021 Immunizations Name Administration Dates Next Due Covid-19 MRNA Vaccine - Pfizer 12+ (Purple Cap) 12/26/2020,12/05/2020 Social History Tobacco Use Types Packs/Day Years Used Date Smoking Tobacco: Never Assessed Sex and Gender Information Value Date Recorded Sex Assigned at Not on file Gender Identity Not on file Sexual Orientation Not on file Last Filed Vital Signs Vital Sign Reading Time Taken Comments Blood Pressure 133/83 01/19/2021 7:42 PM EDT Pulse 92 01/19/2021 7:42 PM EDT Temperature 37 ??C (98.6 ??F) 01/19/2021 7:42 PM EDT Respiratory Rate 18 01/19/2021 7:42 PM EDT Oxygen Saturation 96% 01/19/2021 7:42 PM EDT Inhaled Oxygen Concentration - - Weight - - Height - - Body Mass Index - - Plan of Treatment Health Maintenance Due Date Last Done Comments Hepatitis C Virus Screening 1974 HIV Screening 1987 DTaP/Tdap/Td Vaccines (1 - Tdap) 1993 Hepatitis B Vaccines (1 of 3 - 19+ 3-dose series) 1993 Pap Smear (Ages 21-65) 1995 Mammogram 2014 Colonoscopy 2019 Influenza Vaccine 02/08/2024 COVID-19 Vaccine (3 - 2023-2 5 season) 2024 12/26/2020, 12/05/2020 Pneumococcal Vaccines 50+ (1 of 1 - PCV) 2024 Zoster (Shingles) Vaccine (1 of 2) 2024 Pneumococcal Vaccine: Pediatric (0-5 Years) and At-Risk Patients (6 to 49 Years) Aged Out No longer eligible b ased on patient's age to complete this topic
--- OUTSIDE RECORDS SUMMARY | 2024-08-27 09:52 | XMS_ITS ---
Author Organization [facility] Address [address] [place] [address] Care Team Providers Care Ice Skating Teacher Name Role Phone Linda Lopez Primary Care Provider Unavailab Jamarcus Lopez Unavailable [phone] REASON FOR VISIT Patient presents today for HEMMORHAGE Encounters Encounter Location Date Provider Diagnosis [facility] [address] [place] [address] 08/07/2024 Jamarcus Banda PLAN OF TREATMENT Next Appt Details Provider Name:Jamarcus Banda , 12/05/2024 11:00:00 AM, [address], [address], [place], [address],
--- OUTSIDE RECORDS SUMMARY | 2024-08-27 09:52 | XMS_ITS ---
Author Organization [facility] Address [address] [place] [address] Care Team Providers Care Yoga Teacher Name Role Phone Linda Lopez Primary Care Provider Unavailab Jamarcus Lopez Unavailable [phone] Encounters Encounter Location Date Provider Diagnosis [facility] [address] [place] [address] 08/05/2024 Jamarcus Banda PLAN OF TREATMENT Next Appt Details Provider Name:Jamarcus Banda , 12/05/2024 11:00:00 AM, [address], [address], [place], [address],
== END 2024-08-27 10:21 | disposition home or self-care (01) ==
PROVIDERS: PCP Internal Medicine Geriatric Medicine; Visit Provider Internal Medicine Cardiovascular Disease
DX: R00.2 Palpitations (principal); R07.89 Other chest pain; R94.31 Abnormal electrocardiogram [ECG] [EKG]
CPT/HCPCS: 93010; 99214

== ENCOUNTER → 2024-08-27 09:12 | Outpatient (BNVA) | payer MEDICAID, SELFPAY | PROVIDERS: PCP Internal Medicine Geriatric Medicine; Visit Provider Internal Medicine Cardiovascular Disease | DX: R00.2 Palpitations (principal); R07.89 Other chest pain | CPT/HCPCS: 93005; 99212 ==

== ENCOUNTER 2024-09-03 09:17 | Outpatient (AMB) | payer MEDICAID, SELFPAY ==
[2024-09-03 09:46] VITALS: BMI 36.6
--- NOTE | 2024-09-03 09:46 | A.OFFVIS_ITS ---
Vital Signs 09/03/24 09:46 Height 5 ft 4 in Weight 213 lb BMI 36.6 Intake Visit Reasons: Right shoulder pain and weakness Intake Note: Traci is a 49 year old right hand dominant female who presents with complaints of progressively worsening right shoulder pain and weakness. She describes her pain as sharp in nature. Most of the pain is along the lateral aspect of her right shoulder. Her symptoms have gotten worse over the last 6 months in spite of continued non operative treatments. She has failed the last 6 weeks of conservative treatment. She has tried Tylenol and anti-inflammatory medicines which gave her minimal relief. She has also done physical therapy exercises which aggravated her pain. She has difficulty lifting her right hand above shoulder height. Spanish Medical Interpreter Required: Yes Spanish Medical Interpreter Language: Dry Mill Worker Services: Spanish Medical Interpreter Present Spanish Medical Interpreter Name: SebastianLENNY/VINCE Allergies ibuprofen [From Motrin] Allergy (Intermediate, Verified 09/03/24 09:54) Rash naproxen [Naprosyn] Allergy (Intermediate, Verified 09/03/24 09:54) Rash prednisone [PREDNISONE] Allergy (Intermediate, Verified 09/03/24 09:54) RASH, itching Medication List - Last Reconciled 09/03/24 by Best Sierra MD albuterol sulfate 90 mcg/actuation (Ventolin HFA) 2 puffs inhalation Q6H PRN calcium citrate-vitamin D3 315 mg-5 mcg (200 unit) (Calcium Citrate + D) 1 tab PO DAILY docusate sodium 100 mg PO BID ferrous sulfate 325 mg PO DAILY lidocaine 5% patches topical pantoprazole 40 mg PO BID vitamin A palmitate 3,000 mcg PO DAILY PFSH Medical History Pre-diabetes GERD (gastroesophageal reflux disease) Hiatal hernia HTN (hypertension) Vitamin deficiency Fatigue Diaphragmatic hernia Dyspareunia in female Heavy menstrual bleeding Vitamin B1 deficiency Prediabetes Obstructive sleep apnea treated with continuous positive airway pressure (CPAP) Asthma Acid reflux Umbilical hernia Surgical History S/P laparoscopic sleeve gastrectomy History of delivery History of endoscopy History of umbilical hernia repair (10/06/17) History of cholecystectomy History of tubal ligation Family History Father No problems noted. Mother Diabetes Hypertension FH: mental illness Maternal Grandmother Hypertension Maternal Uncle Cancer Leukemia Family/Other FH: mental illness Son No problems noted. Son Asthma Glaucoma Son No problems noted. 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 Physical Exam Vital Signs: BMI result Body Mass Index 36.6 Const Other: Well-nourished well-developed very friendly female awake alert and oriented x3 in no acute distress Extrem Other: Bilateral upper extremity examination shows good capillary refill, no skin lesions noted, normal sensation light touch Right shoulder examination shows decreased range of motion when compared to her left shoulder, 4+ out of 5 strength with supraspinatus testing, positive impingement signs, tenderness over her acromioclavicular joint, no instability Results Reviewed Results Reviewed: X-rays of the patient's right shoulder show moderate severe acromioclavicular joint narrowing, a type 2 acromion, no acute bony abnormalities Assessment & Plan Assessment & Plan (1) Rotator cuff insufficiency of right shoulder: Code(s): M25.311 - Other instability, right shoulder Category: Medical Plan Ms. Marco Ortega presents with progressively worsening right shoulder pain and weakness due to impingement syndrome and possible rotator cuff tearing. Thus, I will send the patient for an MRI of her right shoulder for further evaluation. I will see her back once the MRI is completed to discuss the findings and treatment options. She will continue with her kjcol-yp-sonaaw exercises in the meantime. Feel free to call me at any time should questions regarding her orthopedic management arise. Thank you very much for asking me to see this very friendly patient. I spent 21 minutes in reviewing the patient's records and imaging studies, seeing the patient and documenting in the medical record. Orders: Orders MR shoulder RT wo con Today M25.311 - Other instability, right shoulder Coding Level of Care Code New Pt Level 3 (38204) Complex EM visit Add On G2211 Diagnoses Rotator cuff insufficiency of right shoulder M25.311
--- OUTSIDE RECORDS SUMMARY | 2024-09-03 10:10 | XMS_ITS | Encounter Summary ---
Author Organization [employer] Address [address] [place] [address] Care Team Providers Care Inspector Raw Quartz Name Role Phone Name, Morales RAMSEY Primary Care Provider [phone] Reason for Visit * Reason Onset Date Comments Hospital Follow-up 03/29/2024 Encounter Details Date Type Department Care Team ([facility] st Contact Info) Description 03/29/2024 Telephone [facility] [address] [place] [address] Name, MD Morales [address] [place] [address] Hospital Follow-up Social History Tobacco Use Types Packs/Day Years Used Date Smoking Tobacco: Never Smokeless Tobacco: Never Alcohol Use Standard Drinks/Week Comments Never 0 (1 standard drink = 0.6 oz pur e alcohol) Depression Answer Date Recorded Patient Health Questionnaire-9 Score 0 12/15/2022 Housing Stability Answer Date Recorded What is your housing situation today? I have howard frausto 05/04/[address] you li ve. Do you have problems with any of the following? None of the above 05/04/2023 Food Insecurity Answer Date Recorded Within the past 12 months, y ou worried that your food would run out before you got money to buy more: Never True 05/04/2023 Within the past 12 months,th e food you bought just didn't last and you didn't have enough money to get more: Never True Transportation Answer Date Recorded In the past 12 months, has l ack of transportation kept you from medical appts, meetings, work or from getting things needed for daily living? No 05/04/2023 Utilities Answer Date Recorded In the past 12 months, has t he electric, gas, oil or water company threatened to shut off services in your home? No 05/04/2023 Depression Answer Date Recorded Patient Health Questionnaire-2 Score 0 12/15/2022 Comments Unknown Sex and Gender Information Value Date Recorded Sex Assigned at Female 05/09/2022 10:39 AM EDT Legal Sex Female 10:39 AM EDT Gender Identity Female 05/09/2022 10:39 AM EDT Sexual Orientation Choose not to disclose 2021 10:39 AM EDT documented as of this encounter Miscellaneous Notes * Telephone Encounter - Senia Levine LPN - 03/29/2024 10:45 AM EDT Please obtain [place] [facility] [place] and transfer to [facility] inpatient with diwscharge date of 03/28/24. Hospital discharge follow up appt booked for 04/05/24 Monica CHISHOLM 2pm * Telephone Encounter - Senia Levine LPN - 03/29/2024 10:40 AM EDT Triage call returned to patient with Clinton [id number]. Patient discharged from [facility] yesterday. Initial admission to [facility] on 03/17/24 transferred to [facility] after 6 days and discharged to home yesterday. is feeling well. Concerned with Insurance [email or web address] active as run today. No new symptoms or complaints. Hospital discharge follow up appt scheduled for next week 04/05/24 2pm with Monica CHISHOLM. Reviewed with patient home care recommendations and reasons to call back. Pt verbalized understanding and agrees. Protocol Used: Post-Hospitalization Follow-up Call (Adult) Protocol-Based Disposition: Home Care Override (Final) Disposition: See in Office or Video Visit within 2 Weeks Override Reason: Organization policy Positive Triage Question: * Condition / symptoms BETTER (improving) and caller has additional questions triager can answer * All higher-acuity triage questions were negative Care Advice Discussed: * Continue Treatment * Reasons To Call Back - Fever occurs - You become worse * Telephone Encounter - Suraj Joe - 03/29/2024 9:12 AM EDT Tc from pt requesting a HDF appt. Hospital: [facility] Date of admission: 03/17/24 Discharge date: 03/28/24 Diagnosed: Abdominal Pain ([place] Islander Speaker) documented in this encounter Plan of Treatment Upcoming Encounters Date Type Department Care Team (Late st Contact Info) Description 10/29/2024 9:00 AM EDT Nurse Only [facility] [address] [place] [phone] 11/04/2024 10:45 AM EDT Office Visit [facility] [address] [place] [phone] NameMorales MD [address] [place] [phone] documented as of this encounter Visit Diagnoses Not on filedocumented in this encounter Additional Health Concerns Assessment Noted Time PHQ-9 Depression Total Score: 0 12/16/19 23 11:12 AM EDT documented as of this encounter Care Teams Inspector Raw Quartz Relationship Specialty Start Date End Date NameMorales MD [address] [place] [id number] PCP - General Family Medicine 07/01/21 documented as of this encounter
--- OUTSIDE RECORDS SUMMARY | 2024-09-03 10:10 | XMS_ITS | Clinical Summary ---
Author Organization [facility] Address [address] [place] [id number] Care Team Providers Care Hypercil Core Transformer Assembler Name Role Phone Unavailable Primary Care Provider [...]
--- OUTSIDE RECORDS SUMMARY | 2024-09-03 10:10 | XMS_ITS ---
Author Organization [facility] Address [address] [place] [address] Care Team Providers Care Fiberglass Boat Parts Finisher Name Role Phone Linda Lopez Primary Care Provider Unavailab Jamarcus Lopez Unavailable [phone] REASON FOR VISIT pathology Encounters Encounter Location Date Provider Diagnosis [facility] [address] [place] [address] 04/03/2024 Jamarcus Banda PLAN OF TREATMENT Next Appt Details Provider Name:Jamarcus Banda , 12/05/2024 11:00:00 AM, [address], [address], [place], [address],
--- OUTSIDE RECORDS SUMMARY | 2024-09-03 10:10 | XMS_ITS | Clinical Summary ---
Author Organization [employer] Address [address] [facility] [address] [place] [address] Care Team Providers Care Helicopter Engineer Name Role Phone Name, Morales RAMSEY Primary Care Provider [phone] Allergies Active Allergy Reactions Criticality Noted Date Comments Dexamethasone Itching Low 01/19/2021 Ibuprofen Rash Low 06/14/2022 Medications * This document contains information received from the source organization and may not represent a complete record from that organization. White Petrolatum-Mine ral Oil (Wh Petrol-Mineral Oil-Lanolin) 0.1-0.1 % ointment apply 2-4 drops topically to eye PRN dryness 2 Active glucose blood (FREESTYLE LITE) test strip Use to test blood sugar twice daily 2 Active thiamine (Vitamin B-1) 100 MG tablet Take 1 tablet by mouth at bed time. Active TRUEplus Lancets 33G misc Use to test blood sugar twice daily 2 Active Spacer/Aero-Hol ding Chambers (OptiChamber Tasha) miscIndications :Influenza A 1 each every 4 (four) hours if needed (asthma). 1 each 2 Active albuterol (2.5 MG/3ML) 0.083% nebulizer solutionIndicat ions:Influenza A Take 3 mL (2.5 mg) by nebulization every 6 (six) hours if needed for wheezing or shortness of breath. 75 mL 1 2 Active diphenhydrAMINE (BENADryl) 25 MG capsuleIndicati ons:Influenza A Take 2 capsules (50 mg) by mouth every 6 (six) hours if needed for itching. May take 1-2 capsules prn rashor itching 40 capsule 2 Active cyclobenzaprine (Flexeril) 10 MG tabletIndicatio ns:Chronic low back pain, unspecified back pain laterality, unspecified whether sciatica present Take 1 tablet (10 mg) by mouth 3 times daily for 20 days. 60 tablet 3 3 Active Calcium Citrate-Vitamin D 315-5 MG-MCG tablet Take 1 tablet by mouth in the morning. 3 Active albuterol (Ventolin HFA) 108 (90 Base) MCG/ACT inhalerIndicati ons:Asthma, unspecified asthma severity, unspecified whether complicated, unspecified whether persistent Inhale 2 puffs every 6 hours as needed for cough, wheezing, or shortness of breath 18 g 3 4 Active pantoprazole (Protonix) 40 MG EC tablet Take 1 tablet (40 mg) by mouth before breakfast. Do not crush, chew, or split. 90 tablet 3 4 06/13/20 25 Active FeroSul 325 (65 Fe) MG tabletIndicatio ns:Dysmenorrhea TAKE 1 TABLET BY MOUTH EVERY DAY WITH ORANGE JUICE 90 tablet 3 4 Active lidocaine (Lidoderm) 5 % patch Apply 1 patch topically Once per day. Remove & discard patch within 12 hours or as directed by MD. 30 patch 2 4 06/19/20 25 Active acetaminophen (Tylenol) 500 MG tablet Take 2 tablets (1,000 mg) by mouth every 6 (six) hours if needed for moderate pain or fever for up to 25 doses. 50 tablet 4 Active docusate sodium (Colace) 100 MG capsule TAKE 1 CAPSULE BY MOUTH TWICE DAILY 180 capsule 2 4 Active Active Problems Problem Noted Date Diagnosed Date Moderate depressive disorder 05/27/2024 Severe anxiety 05/27/2024 Assessment & Plan (05/27/2024 8:08 AM EST): PROGRESS NOTE: ID: Traci is a 48 y.o. Decline to answer choose not to disclose- identified cis-female with self reported history of Depression and Anxiety services including OP Psychotherapy psychopharmacology who presents for Anxiety and Depression During IBH Consult Traci presenting with depressed mood, Tearful, irritable mood, loss of interests/pleasure , sense of isolation/loneliness , change in appetite or weight overeating and unintentional weight gain, changes in sleep difficulty falling asleep and difficulty staying asleep , psychomotor agitation, fatigue/loss of energy, difficulty concentrating and excessive worry/anxiety, difficulty controlling worry, anxiety/worry associated to restlessness and/or feeling keyed-up/On edge , easily fatigued , difficulty concentrating and/or mind going blank , irritability, muscle tension , and sleep disturbance difficulty falling asleep and difficulty staying asleep , and sense of dread ; for a period of 18+ mo, for most or all symptoms in the context of concern about health issues, 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 PLAN: (check all that apply) New/Additional Services needed Off-site services for Behavioral Health Integration Plan External OP therapy referral and OP psychiatry Referral Patient Self Plan Patient to utilize skills provided in intervention , Patient to reach out to [facility] team as needed, Patient to engage in OP therapy , and Patient to reach out to [facility] as needed S/P laparoscopic sleeve gastrectomy 08/12/2022 Overview (08/12/2022): [place]. Ortiz, [facility] [place]22 Chronic low back pain 06/18/2022 Dysmenorrhea 06/18/2022 Esophageal dysphagia 06/18/2022 Hypertensive disorder 06/18/2022 Lower esophageal ring 06/18/2022 Morbid obesity 06/18/2022 Pain in pelvis 06/18/2022 Umbilical hernia 06/18/2022 Prediabetes 08/23/2021 Encounters * This document contains information received from the source organization and may not represent a complete record from that organization. Date Type Department Care Team Description 07/02/2024 Refill [facility] MEDICINE [address] [place] [phone] Name, MD Morales 06/24/2024 Telephone [facility] MEDICINE [address] [place] [phone] Yumiko Fabian MA feb recall 06/19/2024 9:00 AM EST Office Visit [facility] [address] [place] [phone] Denny Bocanegra MD Acute pain of right shoulder (Primary Dx) 06/17/2024 Refill [facility] MED[facility]INE [address] [place] [phone] Name, MD Morales Dysmenorrhea 06/13/2024 Refill [facility] [address] [place] [phone] Name, MD Morales from Last 3 Months Immunizations Name Administration Dates Next Due Influenza Injectable Quadriv alant Preservative Free IIV4 MDCK 04/21/2018,04/17/2017 Influenza injectable quadriv alent IIV4 with preservative 04/23/2019 Influenza injectable quadriv alent preservative free 03/17/2023,06/29/2021 Influenza, IIV3, injectable 10/26/2015, 1 Influenza, seasonal, injecta ble, preservative free 04/10/2024,06/14/2022 Influenza, trivalent, adjuvanted 04/23/2019 Pfizer Covid-19 Vaccine 12+ 12/26/2020, Pfizer Covid-19 Vaccine 12+ Bivalent 06/14/2022 Pfizer Covid-19 Vaccine 12+ stanley-sucrose (Armenta Cap) 11/10/2021,12/26/2020,12/05/2020 Pneumococcal Polysaccharide PPSV23 08/01/2016 Tdap 02/19/2019 Zoster, Recombinant 08/20/2024 Social History Tobacco Use Types Packs/Day Years Used Date Smoking Tobacco: Never Smokeless Tobacco: Never Alcohol Use Standard Drinks/Week Comments Never 0 (1 standard drink = 0.6 oz pur e alcohol) Depression Answer Date Recorded Patient Health Questionnaire-9 Score 14 05/24/2024 Patient Health Questionnaire-9 Score 14 05/24/2024 Last PHQ-9: Questionnaire Data Not on file 1 07/24/2023 Housing Stability Answer Date Recorded What is your housing situation today? I have howard frausto 04/03/[address] you li ve. Do you have problems with any of the following? None of the above 04/03/2024 Food Insecurity Answer Date Recorded Within the past 12 months, y ou worried that your food would run out before you got money to buy more: Never True 04/03/2024 Within the past 12 months,th e food you bought just didn't last and you didn't have enough money to get more: Never True Transportation Answer Date Recorded In the past 12 months, has l ack of transportation kept you from medical appts, meetings, work or from getting things needed for daily living? No 04/03/2024 Utilities Answer Date Recorded In the past 12 months, has t he electric, gas, oil or water company threatened to shut off services in your home? No 04/03/2024 Depression Answer Date Recorded Patient Health Questionnaire-2 Score 2 05/24/2024 Internet Access Answer Date Recorded Internet Access Q1 Yes 04/03/2024 Internet Access Q2 Not on file 04/03/2024 Comments Unknown Sex and Gender Information Value Date Recorded Sex Assigned at Female 05/09/2022 10:39 AM EDT Legal Sex Female 10:39 AM EDT Gender Identity Female 05/09/2022 10:39 AM EDT Sexual Orientation Choose not to disclose 2021 10:39 AM EDT Last Filed Vital Signs Vital Sign Reading Time Taken Comments Blood Pressure 123/76 06/19/2024 8:56 AM EST Pulse 97 06/19/2024 8:56 AM EST Temperature 36.4 ??C (97.5 ??F) 06/19/2024 8:56 AM ES T Respiratory Rate 17 06/19/2024 8:56 AM EST Oxygen Saturation 99% 06/19/2024 8:56 AM EST Inhaled Oxygen Concentration - - Weight 94.1 kg (207 lb 6.4 oz) 06/19/2024 8:56 A M EST Height 162.6 cm (5' 4 ) 04/10/2024 10:15 AM EDT Body Mass Index 35.6 04/10/2024 10:15 AM EDT Plan of Treatment Upcoming Encounters Date Type Department Care Team (Late st Contact Info) Description 10/29/2024 9:00 AM EDT Nurse Only [facility] MED[facility]INE [address] [place] [phone] 11/04/2024 10:45 AM EDT Office Visit [facility] MED[facility]INE [address] [place] [phone] NameMorales MD [address] [place] [phone] Health Maintenance Due Date Last Done Comments CT Colonography 1974 Dental Oral Exam 1974 Dental Prophylaxis 1974 Dental X-Ray: Bitewings 1974 Dental X-Ray: Full Mouth 1974 FIT DNA/Cologuard 1974 FIT 1974 FOBT 1975 HIV Screening 1975 Sigmoidoscopy 1974 Alcohol/Substance Use Screening 1986 Family Planning (PISQ) 1989 Hepatitis C Screening 1992 Hepatitis B Vaccines (1 of 3 - 19+ 3-dose series) 1993 Pneumococcal Vaccine: 50+ Years (2 of 2 - PCV) 08/01/2017 08/01/2016 COVID-19 Vaccine ( season) 2024 06/14/2022, 11/10/2021, 12/26/2020, Additional history exists Pap Smear 07/12/2024 07/12/2021 Mammogram 10/11/2024 10/11/2022 Zoster Vaccines (2 of 2) 10/15/2024 08/20/2024 Depression Monitoring (PHQ-9) 11/21/2024 05/24/2024, 05/24/2024 SDOH Screening 04/10/2025 04/10/2024 Diabetes: Hemoglobin A1C 04/26/2025 024, 03/15/2023, 07/13/2022, Additional history exists Depression Screening 05/24/2025 05/24/2024, 05/24/20 24 Tobacco Screening 06/19/2025 06/19/2024 Cervical Cancer Screening 07/12/2026 HPV/Cotest 07/12/2026 07/12/2021 DTaP/Tdap/Td Vaccines (2 - Td or Tdap) 02/19/2029 02/19/2019 Lipid Panel 04/26/2029 04/26/2024, 09/0 12/2022, 06/21/2021 Colonoscopy 03/18/2034 03/18/2024 Colorectal Cancer Screening 03/18/2034 RSV Patients and Patients Aged 60 years or older (1 - 1-dose 75+ series) 2049 Influenza Vaccine Completed 04/10/2024, , 06/14/2022, Additional history exists HIB Vaccines Aged Out No longer eligi ble based on patient's age to complete this topic HPV Vaccines Aged Out No longer eligi ble based on patient's age to complete this topic Hepatitis A Vaccines Aged Out No long er eligible based on patient's age to complete this topic IPV Vaccines Aged Out No longer eligi ble based on patient's age to complete this topic Meningococcal Vaccine Aged Out No chad balbir eligible based on patient's age to complete this topic RSV under 20 months Aged Out No longe r eligible based on patient's age to complete this topic Rotavirus Vaccines Aged Out No longer eligible based on patient's age to complete this topic Procedures Procedure Name Priority Date/Time Associated Diagnosis Comments XR SHOULDER 2+ VIEWS RIGHT Routine 08/19/2024 9:25 AM EST Acute pain of right shoulder HEMOGLOBIN A1C Routine 04/26/2024 8:28 AM EDT LIPID PANEL, STANDARD Routine 04/26/2024 8:28 AM EDT HM COLONOSCOPY Routine 03/18/2024 BI MAMMOGRAM SCREENING TOMOSYNTHESIS BILATERAL Routine 10/11/2022 12:03 PM EDT THINPREP IMAGING PAP AND HPV MRNA E6/E7 WITH REFLEX TO HPV 16,18/45 Routine 07/12/2021 10:33 AM EST from Last 3 Months or Most Recently Relevant to Health Maintenance Results * XR Shoulder 2+ Views Right (08/19/2024 9:25 AM EST) Anatomical Region Laterality Modality Upper Extremities, Shoulder Right Radi ographic Imaging 08/19/2024 9:25 AM EST Narrative 08/19/2024 9:56 AM EST ?[facility] [place] [facility] ?[address] ?[place] [address] ?XRay Report ? Signed ? Patient: Lara Ortega,Traci ?MR#: [id number] ?? [id number] ? : 1975 ?Acct:[id number] ? Age/Sex: 49 / F ?ADM Date: 08/19/24 ? Loc: HO.HHCX ? Attending Dr: Denny Bocanegra MD ? Ordering Physician: DENNY BOCANEGRA MD ?? Date of Service: 08/19/24 ?? Procedure(s): XR shoulder RT min 2V ?? Accession Number(s): [id number] ? cc: DENNY BOCANEGRA MD ? EXAMINATION: ??XR SHOULDER 2 OR MORE VIEWS RIGHT ? HISTORY: 1 year h/o recurrent right shoulder pain, worsening since ?? yesterday. ? COMPARISON: There are no prior studies available for comparison. ? FINDINGS: ? Five views of the right shoulder are submitted. ??Osseous mineralization ?? is normal. ??There is no fracture or dislocation. ??The glenohumeral and ?? acromioclavicular joint spaces are preserved. ??The soft tissues are ?? unremarkable. ? XR/XR shoulder RT min 2V ?? IMPRESSION: ? Unremarkable examination of the right shoulder. ? Electronically signed by: ??Jamarcus Lacy MD ??08/19/2024 09:54 AM EST ?? RP ? Dictated By: ?Jamarcus Lacy MD ? Signed By: ?<Electronically signed by Jamarcus Lacy MD in OV> ?08/19/24 0954 ? DD/ 4 ? TD/TT: 08/19/2449 ? Supervisor Fusing Room: ? Procedure Note Diana, Image - 08/19/[address] [address] XRay Report Signed Patient: Traci DahlMR#: [id number] : 1975Acct:[id number] Age/Sex: 49 / FADM Date: 08/19/24 Loc: HO.HHCX Attending Dr: Denny Bocanegra MD Ordering Physician: DENNY BOCANEGRA MD Date of Service: 08/19/24 Procedure(s): XR shoulder RT min 2V Accession Number(s): [id number] cc: DENNY BOCANEGRA MD EXAMINATION: XR SHOULDER 2 OR MORE VIEWS RIGHT HISTORY: 1 year h/o recurrent right shoulder pain, worsening since yesterday. COMPARISON: There are no prior studies available for comparison. FINDINGS: Five views of the right shoulder are submitted. Osseous mineralization is normal. There is no fracture or dislocation. The glenohumeral and acromioclavicular joint spaces are preserved. The soft tissues are unremarkable. XR/XR shoulder RT min 2V IMPRESSION: Unremarkable examination of the right shoulder. Electronically signed by: Jamarcus Lacy MD 08/19/2024 09:54 AM EST RP Dictated By: Jamarcus Lacy MD Signed By: <Electronically signed by Jamarcus Lacy MD in OV> 08/19/2454 DD/ 4 TD/TT: 08/19/2449 Supervisor Fusing Room: Denny Bocanegra MD IMG XR PROCEDURES Edited Result - Final * Hemoglobin A1c (04/26/2024 8:28 AM EDT) Hemoglobin A1c 4.9 <6.0 % [facility] Comment:Hemoglobin A1C Refer ence Range Adults: 4.8 - 6.0 % Non diabetic: < 6.0 % Goal: < 7.0 %Additional Action Suggested: > 8.0 %Note: Hemoglobin A1c results are invalid for patients with abnormal amounts of HbF. Blood transfusions may impact the HbA1c concentration in the patient sample. Estimated Average Glucose 94 mg/dL [facility] Comment:eAG = Estimated ave rage glucose which is %A1C expressed asaverage glucose, using the formula of the G6S-TqehwtlSlbsmqn Glucose study (ADAG), Diabetes Care, Vol.31,#8,Feb. 2007 04/26/2024 8:28 AM EDT 04/26/2024 8:28 AM EDT us Generic External Data Provider LAB BLOOD ORDERAB LES Final Result [facility] [address] [place] [phone] * (ABNORMAL) Lipid Panel, Standard (04/26/2024 8:28 AM EDT) Triglycerides 80 <150 mg/dL [facility] Comment:Desirable Triglyceri de: less than 150 mg/dLBorderline High Triglyceride 150-199 mg/dLHigh Triglyceride: 200-499 mg/dLVery High Triglyceride: greater than or equal to 5OO mg/dL Cholesterol 186 <200 mg/dL [facility] Comment:Desirable Cholestero l: less than 200 mg/dLBorderline High Cholesterol: 200-239 mg/dLHigh Cholesterol: greater than 239 mg/dL LDL Cholesterol Calculated 120(H) <100 mg/dL [facility] Comment:Desirable LDL: less than 100 mg/dLNear Optimal/Above Optimal LDL: 110- 129 mg/dLBorderline High LDL: 130-159 mg/dLHigh LDL: 160-189 mg/dLVery High LDL: greater than or equal to 190 mg/dL HDL Cholesterol 50 >40 mg/dL [facility] Comment:Desirable HDL: great er than 40 mg/dL Note: This HDL assay may give artificially low results in patients with liver disease. 04/26/2024 8:28 AM EDT 04/26/2024 8:28 AM EDT us Generic External Data Provider LAB BLOOD ORDERAB LES Final Result [facility] [address] [place] [phone] * Hm Colonoscopy (03/18/2024) Colonoscopy Normal Normal 03/18/2024 us Morales Ly MD HEALTH MAINTENANCE Final Result * BI Mammogram Screening Tomosynthesis Bilateral (10/11/2022 12:03 PM EDT) Anatomical Region Laterality Modality Breast Bilateral Mammography 10/11/2022 12:0 3 PM EDT Narrative 10/12/2022 5:03 PM EDT ? [facility] ? [address] ?[place] [address] ? Mammography Report ? Signed ? Patient: Lara Traci Ortega ?MR#: [id number] ?? [id number] ? : 1975 ?Acct:[id number] ? Age/Sex: 47 / F ?ADM Date: 10/11/22 ? Loc: HO.MAMMO ? Attending Dr: Celso Galo CNM ? Ordering Physician: CELSO GALO CNM ?Results: 1 ?? Negative ? Date of Service: 10/11/22 ?Follow Up: 1 Year From Orig ?? inal Mammogram ? Procedure(s): MM tomosynthesis screening BI ?? Accession Number(s): [id number] ? cc: CELSO GALO CNM ? EXAMINATION: ?? MM SCREENING DIGITAL BREAST TOMOSYNTHESIS, BILATERAL ? CLINICAL INFORMATION: ? Screening. Asymptomatic. ? The lifetime risk of breast cancer based on the Tyrer-Cuzick Model is ?? 7%. ? COMPARISON: ?? Mammography: 10/05/2021, 05/24/2019, 05/09/2018 ? TECHNIQUE: ?? Digital breast tomosynthesis is performed in both the craniocaudal and ?? mediolateral oblique views along with computer-aided detection (CAD). ?? Synthesized 2D images are generated from the tomosynthesis. ??Additional ?? bilateral CC and left MLO views are obtained. ? FINDINGS: ?? The breasts are almost entirely fatty (ACR BI-RADS breast composition ?? Category a). ? There are no significant masses, abnormal calcifications, or other ?? abnormalities. ??Parenchymal pattern is similar to prior studies. There ?? is no developing density or architectural abnormality. The axilla and ?? skin contours are unremarkable. No significant changes. ? MM/MM tomosynthesis screening BI ?? IMPRESSION: ?? No mammographic evidence of malignancy. ? ASSESSMENT: ? BI-RADS 1: Negative ? RECOMMENDATION: ?? Routine annual mammography screening. ? This patient's information was entered into a reminder system with a ?? target due date for their next mammogram. ? Dictated By: ?Keenan Song MD ? Signed By: ?<Electronically signed by Keenan Song MD in OV> ?10/12/220 ? DD/ 1203 ? TD/TT: ? Supervisor Fusing Room: ARRIAGA ? Procedure Note Murraysantosopal, Image - 10/12/2022 Julio Cesar [facility] [address] [place] [address] Mammography Report Signed Patient: Traci Dahl#: [id number] : 1975Acct:[id number] Age/Sex: 47 / FADM Date: 10/11/22 Loc: HO.MAMMO Attending Dr: Celso Galo CNM Ordering Physician: CELSO GALOesults: 1 Negative Date of Service: 10/11/22Follow Up: 1 Year From Orig inal Mammogram Procedure(s): MM tomosynthesis screening BI Accession Number(s): [id number] cc: CELSO GALO CNM EXAMINATION: MM SCREENING DIGITAL BREAST TOMOSYNTHESIS, BILATERAL CLINICAL INFORMATION: Screening. Asymptomatic. The lifetime risk of breast cancer based on the Tyrer-Cuzick Model is 7%. COMPARISON: Mammography: 10/05/2021, 05/24/2019, 05/09/2018 TECHNIQUE: Digital breast tomosynthesis is performed in both the craniocaudal and mediolateral oblique views along with computer-aided detection (CAD). Synthesized 2D images are generated from the tomosynthesis. Additional bilateral CC and left MLO views are obtained. FINDINGS: The breasts are almost entirely fatty (ACR BI-RADS breast composition Category a). There are no significant masses, abnormal calcifications, or other abnormalities. Parenchymal pattern is similar to prior studies. There is no developing density or architectural abnormality. The axilla and skin contours are unremarkable. No significant changes. MM/MM tomosynthesis screening BI IMPRESSION: No mammographic evidence of malignancy. ASSESSMENT: BI-RADS 1: Negative RECOMMENDATION: Routine annual mammography screening. This patient's information was entered into a reminder system with a target due date for their next mammogram. Dictated By: Keenan Song MD Signed By: <Electronically signed by Keenan Song MD in OV> 10/12/22 1700 DD/ 1203 TD/TT: Supervisor Fusing Room: ARRIAGA [facility] External Provider IMG BI PROCEDURES Final Result * THINPREP TIS PAP AND HPV mRNA E6/E7 WITH REFLEX TO HPV 16,18/45 (07/12/2021 10:33 AM EST) Clinical Information: None given [facility] COMMENT SEE COMMENT [facility] Comment: EXPLANATORY NOTE: ? The Pap is a screening test for cervical cancer. It is ?? not a diagnostic test and is subject to false negative ?? and false positive results. It is most reliable when a ?? satisfactory sample, regularly obtained, is submitted ?? with relevant clinical findings and history, and when ?? the Pap result is evaluated along with historic and ?? current clinical information. ?? COMMENT: This Pap test has been evaluated with computer assisted technology. [employer] Manager Of Finance: SEE COMMENT [facility] Comment: YP, CT(ASCP) CT screening location: [address] ??[address] HPV nRNA E6/E7 Not Detected Not Detected [facility] Comment: Methodology: Iron Launder Operator-Mediated Amplification This assay detects E6/E7 viral messenger RNA (mRNA) from 14 high-risk HPV types (16,18,31,33,35,39,45,51,52,56,58,59,66,68). ? The analytical performance characteristics of this assay have been determined by [employer]. The modifications have not been cleared or approved by the FDA. This assay has been validated pursuant to the CLIA regulations and is used for clinical purposes. ?? For additional information, please refer to http://education.[employer]/faq/SKG040m4 (This link if provided for information/ educational purposes only.) Interpretation/Re sult: Negative for intraepithelial lesion or malignancy. [facility] LMP: 121,321 [facility] Prev. BX: NONE GIVEN [facility] Prev. PAP: NONE GIVEN [facility] SOURCE: None given [facility] Statement Of Adequacy: SEE COMMENT [facility] Comment: Satisfactory for evaluation. Endocervical/transformation zone component absent. 07/12/2021 10:3 3 AM EST us Celso DAVIS LAB PATHOLOGY ORDERABLES Final Result [facility] [address] from Last 3 Months or Most Recently Relevant to Health Maintenance Insurance [facility] ST[facility] Care Teams Helicopter Engineer Relationship Specialty Start Date End Date Name, MD Morales [address] [place] [address] PCP - General Family Medicine 07/01/21
--- OUTSIDE RECORDS SUMMARY | 2024-09-03 10:11 | XMS_ITS ---
Author Organization [facility] Address [address] [place] [address] Care Team Providers Care Master Automotive Glass Technician Name Role Phone Linda Lopez Primary Care Provider Unavailab Jamarcus Lopez Unavailable [phone] REASON FOR VISIT Patient presents today for HEMMORHAGE Encounters Encounter Location Date Provider Diagnosis [facility] [address] [place] [address] 08/07/2024 Jamarcus Banda PLAN OF TREATMENT Next Appt Details Provider Name:Jamarcus Banda , 12/05/2024 11:00:00 AM, [address], [address], [place], [address],
--- OUTSIDE RECORDS SUMMARY | 2024-09-03 10:11 | XMS_ITS ---
Author Organization [facility] Address [address] [place] [address] Care Team Providers Care Underwriting Account Representative Name Role Phone Linda Lopez Primary Care Provider Unavailab Jamarcus Lopez Unavailable [phone] Encounters Encounter Location Date Provider Diagnosis [facility] [address] [place] [address] 08/05/2024 Jamarcus Banda PLAN OF TREATMENT Next Appt Details Provider Name:Jamarcus Banda , 12/05/2024 11:00:00 AM, [address], [address], [place], [address],
--- OUTSIDE RECORDS SUMMARY | 2024-09-03 10:11 | XMS_ITS | Clinical Summary ---
Author Organization [facility] [address] Address [address] [place] [address] Phone Care Team Providers Care Detail Manager Name Role Phone Unavailable Primary Care Provider [...] Active Active Problems No known active problems Immunizations Name Administration Dates Next Due Influenza, [...] adult (Td q 10,TDAP once) 02/19/2029 02/19/2019 Pneumococcal Vaccine (50+ years) (2 of 2 - PCV) 2039 08/01/2016 RSV Discussion (1 - 1-dose 75+ series) [...] ?? For additional information please refer to http://education.A Bit Lucky.Creww/faq/ANX452 (This link is being provided for informational/ educational purposes only.) The performance of this assay has not been clinically validated in patients less than 2 years old. Blood 01/29/2024 10:5 5 AM EDT 01/29/2024 10:56 AM EDT Narrative Resulting Agency Comment Performing Lab: ?Site ID: [id number] ?Name: [email or web address] ?Address: [address] [place] [phone] ?Director: Guilherme Quinteros M.D. Rachael JANE LAB BLOOD ORDERABLES F inal Result Performing Organization Address [facility] de Phone Number [facility] [address] * Hepatitis C Ab with reflex to HCV PCR (01/29/2024 10:55 AM EDT) Pathologist [facility] Hepatitis C Ab NON-REACT KIERAN NON-REACT KIERAN [facility] Comment: HCV antibody was non-reactive. There is no laboratory evidence of HCV infection. In most cases, no further action is required. However, if recent HCV exposure is suspected, a test for HCV RNA (test code 32701) is suggested. For additional information please refer to http://education.Abcodia/faq/VEU34y3 (This link is being provided for informational/ educational purposes only.) 01/29/2024 10:5 5 AM EDT 01/29/2024 10:56 AM EDT Narrative Resulting Agency Comment Performing Lab: ?Site ID: [id number] ?Name: [email or web address] ?Address: [address] [place] [phone] ?Director: Guilherme Quinteros M.D. Rachael JANE LAB BLOOD ORDERABLES F inal Result Performing Organization Address [facility] Co de Phone Number [facility] [address] [place] [address] * (ABNORMAL) Lipid panel with reflex to direct LDL (Q) (01/29/2024 10:51 AM EDT) Pathologist [facility] Cholesterol, Total 203(H) <200 mg/dL [facility] [...] factors. LDL-C is now calculated using the Misael-Powell calculation, which is a validated novel method providing better accuracy than the Friedewald equation in the estimation of LDL-C. Misael SS et al. BELLA. 2013;310(19): 5534-1209 (http://education.PlaySay.Creww/faq/VNM244) Chol/HDL Ratio 3.6 <5.0 (calc) [facility] Non-HDL Cholesterol 146(H) <130 mg/dL (calc) [facility] Comment: For patients with diabetes plus 1 major ASCVD risk factor, treating to a non-HDL-C goal of <100 mg/dL (LDL-C of <70 mg/dL) is considered a therapeutic option. 01/29/2024 10:5 1 AM EDT 01/29/2024 10:52 AM EDT Narrative Resulting Agency Comment Performing Lab: ?Site ID: [email or web address] ?Name: [email or web address] ?Address: [address] [place] [phone] ?Director: Guilherme Quinteros M.D. Rachael JANE LAB BLOOD ORDERABLES F inal Result [facility] [address] [place] [address] * (ABNORMAL) Comprehensive metabolic panel (01/29/2024 10:51 AM EDT) [facility] Glucose 79 65 - 99 mg/dL [facility] [...] Comment Performing Lab: ?Site ID: [email or web address] ?Name: [email or web address] ?Address: [address] [place] [phone] ?Director: Guilherme Quinteros M.D. Rachael JANE LAB BLOOD ORDERABLES F inal Result Performing Organization Address City/State/[facility] Co de Phone Number [facility] [address] [place] [address] from Last 3 Months or Most Recently Relevant to Health Maintenance Insurance [place]
--- OUTSIDE RECORDS SUMMARY | 2024-09-03 10:11 | XMS_ITS | Patient Health Record ---
Author Organization [facility] Address [address] [place] [address] Care Team Providers Care Fall Intern Name Role Phone Linda Lopez Primary Care Provider Jamarcus Anderson Unavailable [phone] ALLERGIES Allergen (clinical drug ingredient) Drug/Non Drug Allergy documented on EMR Reaction Allergy Type Onset Date Status PredniSONE Unknown Drug Allergy Active naproxen Naproxen Unknown Drug Allergy Active Motrin Unknown Drug Allergy Active RESULTS Component Value Reference Range Notes Pathology Reviewed date:04/03/2024 08:25:28 AM Interpretation: Performing Lab:[facility], [address] [place] [address] Notes/Report: REASON FOR REFERRAL Referring Provider First Name Morales Referring Provider Last Name Name Referring Provider Speciality Internal M edicine Referred Organization [facility] Referred Provider Jamarcus Banda Referred Address [address] [facility],[place], [place],[address], Referred Provider Specialty Gastroentero logy Referral Priority Routine MEDICATIONS Medication SIG (Take, Route, Frequency, Duration) Notes Start Date End Date Status Albuterol Active Omeprazole 20 MG 1 capsule Orally Onc e a day Active Padmixzruf-WHSJ-Srbnbeyr 50-325-40 MG TAKE ONE TABLET BY MOUTH [...] W/U Status Risk SNOMED Code Notes Problem Heartburn (R12) Active confirmed 876542 [id number] Problem Gastroesophageal reflux disease, esophagitis presence not specified (K21.9) Active confirmed 735582924 Problem Esophageal stricture (K22.2) Active confirmed Esophageal stricture (20496763) Problem Diverticulosis large intestine w/o perforation or abscess w/o bleeding (K57.30) Active confirmed Diverticul ar disease of colon (654672973) Encounters Encounter Location Date Provider Diagnosis [facility] [address] [place] [address] 08/07/2024 Jamarcus Banda [facility] [address] [place] [address] 04/03/2024 Jamarcus Banda [facility] [address] [place] [address] 08/05/2024 Jamarcus Banda PLAN OF TREATMENT Pending Test Test Name Order Date GI BIOPSY 01/03/2018 Future Test Test Name Order Date UPPER GI ENDOSCOPY 08/22/2017 Next Appt Details Provider Name:Jamarcus Banda , 12/05/2024 11:00:00 AM, [address], [address], [place], [address], Insurance Providers Payer Name Payer Address Payer Phone Subscriber Number Group Number Insured Name Patient Relationship to Insured Coverage Start Date Coverage End Date MEDICAID OF [employer] [address] [place] [phone] [id number] CHUCHO HOLM Self - patient is the insured MEDICAL (GENERAL) HISTORY Medical History History ICD Code Denies SD,CVA,renal disease Hypertension NIDDM Asthma GERD--E[place] in 2009 [place]--she describes gastritis with probable H.pylori and a hiatal hernia--describes being treated with antibiotics Sleep apnea--uses CPAP Mild diverticulitis on CT scan in 7 Surgical History Surgery Date(Month/Year) Tubal ligation 1997 Cholecystectomy 1997
== END 2024-09-03 10:17 | disposition home or self-care (01) ==
PROVIDERS: PCP Internal Medicine Geriatric Medicine; Visit Provider Orthopaedic Surgery
DX: M25.311 Other instability, right shoulder (principal); M75.41 Impingement syndrome of right shoulder
CPT/HCPCS: 99203

== ENCOUNTER → 2024-09-03 09:17 | Outpatient (BNVA) | payer MEDICAID, SELFPAY | PROVIDERS: PCP Internal Medicine Geriatric Medicine; Visit Provider Orthopaedic Surgery | DX: M25.311 Other instability, right shoulder (principal); M25.511 Pain in right shoulder | CPT/HCPCS: 99202 ==

== ENCOUNTER → 2024-09-09 07:54 | Outpatient (BNV) | payer MEDICAID, SELFPAY | PROVIDERS: PCP Internal Medicine Geriatric Medicine; Visit Provider Radiology Diagnostic Radiology | DX: M75.111 Incomplete rotator cuff tear or rupture of right shoulder, not specified as traumatic (principal); M75.31 Calcific tendinitis of right shoulder | CPT/HCPCS: 73221 ==

== ENCOUNTER 2024-09-09 08:18 | Outpatient (REF) | payer MEDICAID, SELFPAY ==
--- NOTE | ~2024-09-09 | MR_ITS ---
CLINICAL HISTORY: M25.311 - Other instability, right shoulder MR right shoulder Comparison: None Findings: No fracture or dislocation of the osseous structures. There is edema at the acromion and distal clavicle centered upon the acromioclavicular joint,. There is a trace amount of edema in the glenoid of the superior/posterior aspect, likely degenerative. There is cystic change in the humeral head. Cyst in the distal clavicle measuring 7 mm, degenerative. The acromioclavicular joint demonstrates joint space narrowing and osteophytosis. Joint fluid is within normal limits. There is a trace amount of fluid in the subacromial/subdeltoid and subcoracoid bursa. There is a prominent amount of increased signal within the supraspinatus tendon. There is partial tear at bursal surface without retraction or muscular atrophy. There is moderate increased signal within the infraspinatus and subscapularis tendons. No tear of the infraspinatus tendon. There is partial tear of the subscapularis tendon without retraction or muscular atrophy. Teres minor is unremarkable. No identified labral tear. There is partial-thickness glenohumeral chondromalacia, degenerative. The biceps tendon and bicipital-labral anchor are normal. The coracoacromial and coracohumeral ligaments are intact. There is increased signal within coracoclavicular ligament. Cutaneous and subcutaneous tissues are normal. The quadrilateral space is unremarkable. Impression: Tendinopathy of supraspinatus, infraspinatus and subscapularis. Partial tears of supraspinatus and subscapularis without retraction or muscular atrophy. Bone marrow edema in the acromion and distal clavicle which is centered upon the acromioclavicular joint is likely secondary to degenerative change. Trauma may also be considered. There is edema in the coracoclavicular ligament without discontinuity which may indicate sprain. Trace fluid within the subacromial/subdeltoid and subcoracoid bursa. This document has been electronically signed by: Skyla Ramos MD on 09/11/2024 14:40:52
== END 2024-09-09 08:19 | disposition home or self-care (01) ==
LOC: HO.MRI 08:18
PROVIDERS: PCP Internal Medicine Geriatric Medicine; Visit Provider Orthopaedic Surgery
DX: M25.311 Other instability, right shoulder (principal)
CPT/HCPCS: 73221

== ENCOUNTER 2024-09-10 09:27 | Outpatient (REF) | payer MEDICAID, SELFPAY ==
--- NOTE | ~2024-09-10 | XR_ITS ---
EXAMINATION: XR ELBOW, LEFT CLINICAL INFORMATION: atraumatic left elbow pain COMPARISON: None available. TECHNIQUE: AP, lateral, and oblique views of the left elbow. FINDINGS: No acute cortical disruption or malalignment. No lytic or blastic lesions. No subcutaneous emphysema. No joint effusion. No metallic or radiopaque foreign body. XR/XR elbow LT min 3V IMPRESSION: Normal left elbow. Electronically signed by: Ronald Bell MD 09/10/2024 10:03 AM [place]
--- NOTE | ~2024-09-10 | XR_ITS ---
EXAMINATION: XR FINGER, RIGHT CLINICAL INFORMATION: in all joints COMPARISON: None available. TECHNIQUE: PA oblique and lateral views of the fifth digit of the right hand. FINDINGS: Minimal asymmetric joint space narrowing involving the distal interphalangeal joints of the fifth digit similar findings on the fourth digit. No acute cortical disruption or gross malalignment. No lytic or blastic lesions. No subcutaneous emphysema. No metallic or opaque foreign body. 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 Electronically signed by: Ronald Bell MD 09/10/2024 10:02 AM [place]
--- OUTSIDE RECORDS SUMMARY | 2024-09-10 10:33 | XMS_ITS | Clinical Summary ---
Author Organization [facility] [address] Address [address] [place] [address] Phone Care Team Providers Care Environmental Services Manager Name Role Phone Unavailable Primary Care [...] ?? For additional information please refer to http://education.Click Notices[employer] Inc[employer]Provesica/faq/LUU552 (This link is being provided for informational/ educational purposes only.) The performance of this assay has not been clinically validated in patients less than 2 years old. Blood 01/29/2024 10:5 5 AM EDT 01/29/2024 10:56 AM EDT Narrative Resulting Agency Comment Performing Lab: ?Site ID: [id number] ?Name: [facility] [employer] ?Address: [address] [place] [phone] ?Director: Guilherme Quinteros M.D. Rachael JANE LAB BLOOD ORDERABLES F inal Result Performing Organization Address [facility] [address]/[facility] de Phone Number [facility] [address] * Hepatitis C Ab with reflex to HCV PCR (01/29/2024 10:55 AM EDT) Pathologist [facility] Hepatitis C Ab NON-REACT KIERAN NON-REACT KIERAN [facility] Comment: HCV antibody was non-reactive. There is no laboratory evidence of HCV infection. In most cases, no further action is required. However, if recent HCV exposure is suspected, a test for HCV RNA (test code 91142) is suggested. For additional information please refer to http://education.Mobile365 (fka InphoMatch)/faq/KOT91i8 (This link is being provided for informational/ educational purposes only.) 01/29/2024 10:5 5 AM EDT 01/29/2024 10:56 AM EDT Narrative Resulting Agency Comment Performing Lab: ?Site ID: [id number] ?Name: [employer] ?Address: [address] [place] [phone] ?Director: Guilherme Quinteros M.D. Rachael JANE LAB BLOOD ORDERABLES F inal Result Performing Organization Address [facility] [address]/[facility] Co de Phone Number [facility] [address] [place] [address] * (ABNORMAL) Lipid panel with reflex to direct LDL (Q) (01/29/2024 10:51 AM EDT) Pathologist [facility] Cholesterol, Total 203(H) <200 mg/dL [facility] [...] LDL-C. Misael SS et al. BELLA. 2013;310(19): 9692-4418 (http://education.silkfred.Provesica/faq/AJA804) Chol/HDL Ratio 3.6 <5.0 (calc) [facility] Non-HDL Cholesterol 146(H) <130 mg/dL (calc) [facility] Comment: For patients with diabetes plus 1 major ASCVD risk factor, treating to a non-HDL-C goal of <100 mg/dL (LDL-C of <70 mg/dL) is considered a therapeutic option. 01/29/2024 10:5 1 AM EDT 01/29/2024 10:52 AM EDT Narrative Resulting Agency Comment Performing Lab: ?Site ID: [id number] ?Name: [employer] ?Address: [address] [place] [phone] ?Director: Guilherme Quinteros M.D. Rachael JANE LAB BLOOD ORDERABLES F inal Result [facility] [address] [place] [address] * (ABNORMAL) Comprehensive metabolic panel (01/29/2024 10:51 AM EDT) [facility] Glucose 79 65 - 99 mg/dL [facility] [...] Comment Performing Lab: ?Site ID: [id number] ?Name: [employer] ?Address: [address] [place] [phone] ?Director: Guilherme Quinteros M.D. Rachael JANE LAB BLOOD ORDERABLES F inal Result Performing Organization Address City/State/[facility] Co de Phone Number [facility] [address] [place] [address] from Last 3 Months or Most Recently Relevant to Health Maintenance Insurance [place]
--- OUTSIDE RECORDS SUMMARY | 2024-09-10 10:33 | XMS_ITS ---
Author Organization [facility] Address [address] [place] [address] Care Team Providers Care Senior Construction Manager Name Role Phone Linda Lopez Primary Care Provider Unavailab Jamarcus Lopez Unavailable [phone] Encounters Encounter Location Date Provider Diagnosis [facility] [address] [place] [address] 08/05/2024 Jamarcus Banda PLAN OF TREATMENT Next Appt Details Provider Name:Jamarcus Banda , 12/05/2024 11:00:00 AM, [address], [address], [place], [address],
--- OUTSIDE RECORDS SUMMARY | 2024-09-10 10:33 | XMS_ITS ---
Author Organization [facility] Address [address] [place] [address] Care Team Providers Care Chicken Tender Name Role Phone Linda Lopez Primary Care Provider Unavailab Jamarcus Lopez Unavailable [phone] REASON FOR VISIT pathology Encounters Encounter Location Date Provider Diagnosis [facility] [address] [place] [address] 04/03/2024 Jamarcus Banda PLAN OF TREATMENT Next Appt Details Provider Name:Jamarcus Banda , 12/05/2024 11:00:00 AM, [address], [address], [place], [address],
--- OUTSIDE RECORDS SUMMARY | 2024-09-10 10:33 | XMS_ITS | Encounter Summary ---
Author Organization [employer] Address [address] [place] [address] Care Team Providers Care Airport Engineer Name Role Phone Name, Morales RAMSEY Primary Care Provider [phone] Reason for Visit * Reason Onset Date Comments Hospital Follow-up 03/29/2024 Encounter Details Date Type Department Care Team ([facility] st Contact Info) Description 03/29/2024 Telephone [facility] [address] [place] [address] Name, MD Morales [address] [place] [address] Hospital Follow-up Social History Tobacco Use Types [...] EDT Please obtain in patient notes from [facility] admitted 03/17/[address] [facility] inpatient with diwscharge date of 03/28/24. Hospital discharge follow up appt booked for 04/05/24 Monica CHISHOLM 2pm * Telephone Encounter - Senia Levine LPN - 03/29/2024 10:40 AM EDT Triage call returned to patient with Fulton [id number]. Patient discharged from [facility] yesterday. Initial admission to [facility] on 03/17/24 transferred to [facility] after 6 days and discharged to home yesterday. is feeling well. Concerned with Insurance coverage.Skin Scan active as run today. No new symptoms [...] from pt requesting a HDF appt. Hospital: [facility] Date of admission: 03/17/24 Discharge date: 03/28/24 Diagnosed: Abdominal Pain (Japanese Speaker) documented in this encounter Plan of Treatment Upcoming Encounters Date Type Department Care Team (Late st Contact Info) Description 10/29/2024 9:00 AM EDT Nurse Only [facility] MEDICINE [address] [place] [phone] 11/04/2024 10:45 AM EDT Office Visit [facility] [address] [place] [phone] NameMorales MD [address] [place] [phone] documented as of this encounter Visit Diagnoses Not on filedocumented in this encounter Additional Health Concerns Assessment Noted Time PHQ-9 Depression Total Score: 0 12/16/19 23 11:12 AM EDT documented as of this encounter Care Teams Airport Engineer Relationship Specialty Start Date End Date NameMorales MD [address] [place] [id number] PCP - General Family Medicine 07/01/21 documented as of this encounter
--- OUTSIDE RECORDS SUMMARY | 2024-09-10 10:33 | XMS_ITS | Clinical Summary ---
Author Organization [employer] Address [address] [facility] 7[address] [place] [address] Care Team Providers Care Urinalysis Technician Name Role Phone Name, Morales RAMSEY Primary Care Provider [phone] Allergies Active Allergy Reactions Criticality Noted Date [...] intervention , Patient to reach out to [facility] team as needed, Patient to engage in OP therapy , and Patient to reach out to [facility] as needed S/P laparoscopic sleeve gastrectomy 08/12/2022 Overview (08/12/2022): [place]. Ortiz, [facility] [place] Chronic low back pain 06/18/2022 Dysmenorrhea 06/18/2022 Esophageal dysphagia 06/18/2022 Hypertensive disorder 06/18/2022 Lower esophageal ring 06/18/2022 Morbid obesity 06/18/2022 Pain in pelvis 06/18/2022 Umbilical hernia 06/18/2022 Prediabetes 08/23/2021 Encounters Date Type Department Care Team Description 09/10/2024 9:00 AM EST Office Visit [facility] [address] [place] [address] Left elbow pain (Primary Dx); Finger pain, right 07/02/2024 Refill [facility] [address] [place] [address] Name, MD Morales 06/24/2024 Telephone [facility] [address] [place] [address] Yumiko Fabian [place] feb recall 06/19/2024 9:00 AM EST Office Visit [facility] [address] [place] [address] Denny Bocanegra MD Acute pain of right shoulder (Primary Dx) 06/17/2024 Refill [facility] [address] [place] [address] Name, MD Morales Dysmenorrhea 06/13/2024 Refill [facility] [address] [place] [address] Name, MD Morales from Last 3 Months [...] Sign Reading Time Taken Comments Blood Pressure 105/71 09/10/2024 8:55 AM EST Pulse 86 09/10/2024 8:55 AM EST Temperature 37.2 ??C (99 ??F) 09/10/2024 8:55 AM EST Respiratory Rate 17 09/10/2024 8:55 AM EST Oxygen Saturation 99% 09/10/2024 8:55 AM EST Inhaled Oxygen Concentration - - Weight 98.2 kg (216 lb 9.6 oz) 09/10/2024 8:55 A M EST Height 162.6 cm (5' 4 ) 04/10/2024 10:15 AM EDT Body Mass Index 37.18 04/10/2024 10:15 AM EDT Plan of Treatment Upcoming Encounters Date Type Department Care Team (Late st Contact Info) Description 10/29/2024 9:00 AM EDT Nurse Only [facility] [address] [place] [address] 11/04/2024 10:45 AM EDT Office Visit [facility] [address] [place] [address] Name, MD Morales [address] [place] [address] Health Maintenance Due Date Last Done Comments [...] SDOH Screening 04/10/2025 04/10/2024 Diabetes: Hemoglobin A1C 04/26/20252 024, 03/15/2023, 07/13/2022, Additional history exists Depression Screening 05/24/2025 05/24/2024, 05/24/20 24 Tobacco Screening 09/10/2025 09/10/2024 Cervical Cancer Screening 07/12/2026 HPV/Cotest 07/12/2026 07/12/2021 [...] Name Priority Date/Time Associated Diagnosis Comments XR FINGERS 2+ VIEWS RIGHT Routine 09/10/2024 9:28 AM EST Finger pain, right XR ELBOW 3+ VIEWS LEFT Routine 9:28 AM EST Left elbow pain XR SHOULDER 2+ VIEWS RIGHT Routine 08/19/2024 [...] Relevant to Health Maintenance Results * XR Fingers 2+ Views Right (09/10/2024 9:28 AM EST) Anatomical Region Laterality Modality Upper Extremities, Fingers Right Radio graphic Imaging 09/10/2024 9:28 AM EST Narrative 09/10/2024 10:05 AM EST ?[facility] ?[address] ?[place] [address] ?XRay Report ? Signed ? Patient: Traci Dahl ?MR#: [id number] ?? [id number] ? : 1975 ?Acct:[id number] ? Age/Sex: 49 / F ?ADM Date: 09/10/24 ? Loc: HO.HHCX ? Attending Dr: Denny Bocanegra MD ? Ordering Physician: DENNY BOCANEGRA MD ?? Date of Service: 09/10/24 ?? Procedure(s): XR finger RT min 2V ?? Accession Number(s): [id number] ? cc: DENNY BOCANEGRA MD ? EXAMINATION: ?? XR FINGER, RIGHT ? CLINICAL INFORMATION: ?? in all joints ? COMPARISON: ?? None available. ? TECHNIQUE: ?? PA oblique and lateral views of the fifth digit of the right hand. ? FINDINGS: ?? Minimal asymmetric joint space narrowing involving the distal ?? interphalangeal joints of the fifth digit similar findings on the ?? fourth digit. No acute cortical disruption or gross malalignment. No ?? lytic or blastic lesions. No subcutaneous emphysema. No metallic or ?? opaque foreign body. ? XR/XR finger RT min 2V ?? IMPRESSION: ?? Mild osteoarthrosis distal interphalangeal joints of the fifth and ?? fourth digit. ? Electronically signed by: ??Ronald Bell MD ??09/10/2024 10:02 AM ?? EST RP ? Dictated By: ?Ronald Chisholm MD ? Signed By: ?<Electronically signed by Ronald Loo MD in OV> ? 09/10/24 1002 ? DD/ 0928 ? TD/TT: 09/10/24 0950 ? Typesetting Supervisor: ? Procedure Note Nikki Ortiz - 09/10/2024 [facility] [address] [place] [address] XRay Report Signed Patient: Traci DahlMR#: [id number] : 1975Acct:[id number] Age/Sex: 49 / FADM Date: 09/10/24 Loc: HO.HHCX Attending Dr: Denny Bocanegra MD Ordering Physician: DENNY BOCANEGRA MD Date of Service: 09/10/24 Procedure(s): XR finger RT min 2V Accession Number(s): [id number] cc: DENNY BOCANEGRA MD EXAMINATION: XR FINGER, RIGHT CLINICAL INFORMATION: in all joints COMPARISON: None available. TECHNIQUE: PA oblique and lateral views of the fifth digit of the right hand. FINDINGS: Minimal asymmetric joint space narrowing involving the distal interphalangeal joints of the fifth digit similar findings on the fourth digit. No acute cortical disruption or gross malalignment. No lytic or blastic lesions. No subcutaneous emphysema. No metallic or opaque foreign body. 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 Electronically signed by: Ronald Bell MD 09/10/2024 10:02 AM EST Dictated By: Ronald Chisholm MD Signed By: <Electronically signed by Ronald Loo MDin OV> 09/10/24 1002 DD/ 0928 TD/TT: 09/10/24 0950 Typesetting Supervisor: Denny Bocanegra MD IMG XR PROCEDURES Final Result * XR Elbow 3+ Views Left (09/10/2024 9:28 AM EST) Anatomical Region Laterality Modality Upper Extremities, Elbow Left Radiogr aphic Imaging 09/10/2024 9:28 AM EST Narrative 09/10/2024 10:05 AM EST ?[facility] ?[address] ?[place] [address] ?XRay Report ? Signed ? Patient: Lara Ortega,Traci ?MR#: [id number] ?? [id number] ? : 1975 ?Acct:[id number] ? Age/Sex: 49 / F ?ADM Date: 03/04/25 ? Loc: HO.HHCX ? Attending Dr: Denny Bocanegra MD ? Ordering Physician: DENNY BOCANEGRA MD ?? Date of Service: 09/10/24 ?? Procedure(s): XR elbow LT min 3V ?? Accession Number(s): [id number] ? cc: DENNY BOCANEGRA MD ? EXAMINATION: ?? XR ELBOW, LEFT ? CLINICAL INFORMATION: ?? atraumatic left elbow pain ? COMPARISON: ?? None available. ? TECHNIQUE: ?? AP, lateral, and oblique views of the left elbow. ? FINDINGS: ?? No acute cortical disruption or malalignment. No lytic or blastic ?? lesions. No subcutaneous emphysema. No joint effusion. No metallic or ?? radiopaque foreign body. ? XR/XR elbow LT min 3V ?? IMPRESSION: ?? Normal left elbow. ? Electronically signed by: ??Ronald Bell MD ??09/10/2024 10:03 AM ?? EST ? Dictated By: ?Ronald Chisholm MD ? Signed By: ?<Electronically signed by Ronald Loo MD in OV> ? 09/10/24 1003 ? DD/ ? TD/TT: 09/10/2450 ? Typesetting Supervisor: ? Procedure Note Diana, Nikki - 09/10/[address] [address] XRay Report Signed Patient: Traci DahlMR#: [id number] : 1975Acct:[id number] Age/Sex: 49 / FADM Date: 09/10/24 Loc: HO.HHCX Attending Dr: Denny Bocanegra MD Ordering Physician: DENNY BOCANEGRA MD Date of Service: 09/10/24 Procedure(s): XR elbow LT min 3V Accession Number(s): [id number] cc: DENNY BOCANEGRA MD EXAMINATION: XR ELBOW, LEFT CLINICAL INFORMATION: atraumatic left elbow pain COMPARISON: None available. TECHNIQUE: AP, lateral, and oblique views of the left elbow. FINDINGS: No acute cortical disruption or malalignment. No lytic or blastic lesions. No subcutaneous emphysema. No joint effusion. No metallic or radiopaque foreign body. XR/XR elbow LT min 3V IMPRESSION: Normal left elbow. Electronically signed by: Ronald Bell MD 09/10/2024 10:03 AM EST RP Dictated By: Ronald Chisholm MD Signed By: <Electronically signed by Ronald Loo MDin OV> 09/10/24 1003 DD/ 0928 TD/TT: 09/10/24 0950 Typesetting Supervisor: us Denny Bocanegra MD IMG XR PROCEDURES Final Result * XR Shoulder 2+ Views Right (08/19/2024 9:25 AM EST) Anatomical Region Laterality Modality Upper Extremities, Shoulder Right Radi ographic Imaging 08/19/2024 9:25 AM EST Narrative 08/19/2024 9:56 AM EST ?[facility] ?[address] ?[place] [address] ?XRay Report ? Signed ? Patient: Marco ePreztizMerylTraci ?MR#: [id number] ?? [id number] ? : 1975 ?Acct:[id number] ? Age/Sex: 49 / F ?ADM Date: 08/19/24 ? Loc: HO.HHCX ? Attending Dr: Denny Bocanegra MD ? Ordering Physician: DENNY BOCANEGRA MD ?? Date of Service: 08/19/24 ?? Procedure(s): XR shoulder RT min 2V ?? Accession Number(s): [id number] ? cc: DENNY BOCANEGRA MD ? EXAMINATION: [...] signed by Jamarcus Lacy MD in OV> ?08/19/2454 ? DD/ 4 ? TD/TT: 08/19/24948 ? Typesetting Supervisor: ? Procedure Note Donrudolphter, Image - 08/19/2024 [facility] [address] [place] [address] XRay Report Signed Patient: Traci DahlMR#: [id number] : 1975Acct:[id number] Age/Sex: 49 / FADM Date: 08/19/24 Loc: HO.HHCX Attending Dr: Denny Bocanegra MD Ordering Physician: DENNY BOCANEGRA MD Date of Service: 08/19/24 Procedure(s): XR shoulder RT min 2V Accession Number(s): [id number] cc: DENNY BOCANEGRA MD EXAMINATION: XR SHOULDER [...] Jamarcus Lacy MD 08/19/2024 09:54 AM EST Dictated By: Jamarcus Lacy MD Signed By: <Electronically signed by Jamarcus Lacy MD in OV> 08/19/24953 DD/ 4 TD/TT: 08/19/24948 Typesetting Supervisor: Denny Bocanegra MD IMG XR PROCEDURES Edited Result - Final * Hemoglobin A1c (04/26/2024 8:28 AM EDT) Hemoglobin A1c 4.9 <6.0 % [facility] Comment:Hemoglobin A1C Refer ence Range Adults: 4.8 - 6.0 % Non diabetic: < 6.0 % Goal: < 7.0 %Additional Action Suggested: > 8.0 %Note: Hemoglobin A1c results are invalid for patients with abnormal amounts of HbF. Blood transfusions may impact the HbA1c concentration in the patient sample. Estimated Average Glucose 94 mg/dL [facility] Comment:eAG = Estimated ave rage glucose which is %A1C expressed asaverage glucose, using the formula of the X6C-KqparojSphqyzo Glucose study (ADAG), Diabetes Care, Vol.31,#8,2007 04/26/2024 8:28 AM EDT 04/26/2024 8:28 AM EDT us Generic External Data Provider LAB BLOOD ORDERAB LES Final Result [facility] [address] [place] [phone] * (ABNORMAL) Lipid Panel, Standard (04/26/2024 8:28 AM EDT) Triglycerides 80 <150 mg/dL [facility] Comment:Desirable Triglyceri de: less than 150 mg/dLBorderline High Triglyceride 150-199 mg/dLHigh Triglyceride: 200-499 mg/dLVery High Triglyceride: greater than or equal to 5OO mg/dL Cholesterol 186 <200 mg/dL [facility] Comment:Desirable Cholestero l: less than 200 mg/dLBorderline High Cholesterol: 200-239 mg/dLHigh Cholesterol: greater than 239 mg/dL LDL Cholesterol Calculated 120(H) <100 mg/dL [facility] Comment:Desirable LDL: less than 100 mg/dLNear Optimal/Above Optimal LDL: 110- 129 mg/dLBorderline High LDL: 130-159 mg/dLHigh LDL: 160-189 mg/dLVery High LDL: greater than or equal to 190 mg/dL HDL Cholesterol 50 >40 mg/dL [facility] Comment:Desirable HDL: great er than 40 mg/dL Note: This HDL assay may give artificially low results in patients with liver disease. 04/26/2024 8:28 AM EDT 04/26/2024 8:28 AM EDT us Generic External Data Provider LAB BLOOD ORDERAB LES Final Result [facility] [address] [place] [address] [phone] * Hm Colonoscopy (03/18/2024) Colonoscopy Normal Normal 03/18/2024 us Morales Ly MD HEALTH MAINTENANCE Final Result * BI Mammogram Screening Tomosynthesis Bilateral (10/11/2022 12:03 PM EDT) Anatomical Region Laterality Modality Breast Bilateral Mammography 10/11/2022 12:0 3 PM EDT Narrative 10/12/2022 5:03 PM EDT ? [facility] [place] ? [address] ?[place] [address] ? Mammography Report ? Signed ? Patient: Marco OrtegaTraci ?MR#: [id number] ?? [id number] ? : 1975 ?Acct:[id number] ? Age/Sex: 47 / F ?ADM Date: // ? Loc: HO.MAMMO ? Attending Dr: Celso Galo CNM ? Ordering Physician: CELSO GALO CNM ?Results: 1 ?? Negative ? Date of Service: 10/11/22 ?Follow Up: 1 Year From Orig ?? inal Mammogram ? Procedure(s): MM tomosynthesis screening BI ?? Accession Number(s): [id number] ? cc: CELSO GALO CNM ? EXAMINATION: [...] signed by Keenan Song MD in OV> ?04/05/ 1700 ? DD/DT: 04//3 ? TD/TT: ? Typesetting Supervisor: ARRIAGA ? Procedure Note Nikki Ortiz - 10/12/2022 [facility] [address] [place] [address] Mammography Report Signed Patient: Traci DahlMR#: [id number] : 1975Acct:[id number] Age/Sex: 47 / FADM Date: 10/11/22 Loc: HO.MAMMO Attending Dr: Celso Galo CNM Ordering Physician: CELSO GALOesults: 1 Negative Date of Service: 10/11/22Follow Up: 1 Year From Orig inal Mammogram Procedure(s): MM tomosynthesis screening BI Accession Number(s): [id number] cc: CELSO GALO CNM EXAMINATION: MM SCREENING [...] in OV> 10/12/22 1700 DD/ 1203 TD/TT: Typesetting Supervisor: ARRIAGA [facility] External Provider IMG BI PROCEDURES Final Result * THINPREP TIS PAP AND HPV mRNA E6/E7 WITH REFLEX TO HPV 16,18/45 (07/12/2021 10:33 AM EST) Clinical Information: None given [facility] COMMENT SEE COMMENT [facility] ON [...] has been evaluated with computer assisted technology. [facility] Utility Maintenance Worker: SEE COMMENT [facility] Comment: YP, CT(ASCP) CT screening location: [address] ??[address] HPV nRNA E6/E7 Not Detected Not Detected [facility] [employer] Comment: Methodology: Babysitter-Mediated Amplification This assay detects E6/E7 viral messenger RNA (mRNA) from 14 high-risk HPV types (16,18,31,33,35,39,45,51,52,56,58,59,66,68). ? The analytical performance characteristics of this assay have been determined by [employer]. The modifications have not been cleared or approved by the FDA. This assay has been validated pursuant to the CLIA regulations and is used for clinical purposes. ?? For additional information, please refer to http://education.[employer].Villij/faq/JUE181v3 (This link if provided for information/ educational purposes only.) Interpretation/Re sult: Negative for intraepithelial lesion or malignancy. [facility] LMP: 121,321 [facility] Prev. BX: NONE GIVEN [facility]OUND[facility] N LAB SYSTEM Prev. PAP: NONE GIVEN [facility]OUNDAT[facility] ON LAB SYSTEM SOURCE: None given [facility] Statement Of Adequacy: SEE COMMENT [facility] Comment: Satisfactory for evaluation. Endocervical/transformation zone component absent. 07/12/2021 10:3 3 AM EST Celso Galo CNM LAB PATHOLOGY ORDERABLES Final Result [facility] [address] from Last 3 Months or Most Recently Relevant to Health Maintenance Insurance [employer] Care Teams Urinalysis Technician Relationship Specialty Start Date End Date Name, MD Morales [address] [place] [address] PCP - General Family Medicine 07/01/21
--- OUTSIDE RECORDS SUMMARY | 2024-09-10 10:33 | XMS_ITS | Clinical Summary ---
Author Organization [facility] Address [address] [place] [address] Care Team Providers Care Maintenance Worker Name Role Phone Unavailable Primary Care Provider [...]
--- OUTSIDE RECORDS SUMMARY | 2024-09-10 10:33 | XMS_ITS | Encounter Summary ---
Author Organization [employer] Address [address] [facility] 7t [place] [address] Care Team Providers Care Marble Finisher Name Role Phone Name, Morales RAMSEY Primary Care Provider [phone] Reason for Referral * Consultation (Routine) - Pending Review Specialty Diagnoses / Procedures Referred By Rajani soriano Referred To Contact Orthopaedic Surgery Diagnoses Left elbow pain Finger pain, right Denny Washington MD [address] [place] [address] Phone: tel: fax: Referral ID Status Reason Start Date Expiration Date Visits Requested Visits Authorized [id number] Pending Review Specialty Services Required 09/10/2024 09/10/2025 1 1 Reason for Visit * Reason Comments Arm Pain Left sided arm pain Finger Pain Pinky finger Encounter Details Date Type Department Care Team (Late st Contact Info) Description 09/10/2024 9:00 AM EST Office Visit [facility] [address] [place] [phone] Left elbow pain (Primary Dx); Finger pain, right Social History Tobacco Use Types Packs/Day Years [...] AM EDT documented as of this encounter Last Filed Vital Signs Vital Sign Reading [...] oz) 09/10/2024 8:55 A M EST Height - - Body Mass Index 37.18 04/10/2024 10:15 AM EDT documented in this encounter Plan of Treatment Upcoming Encounters Date Type Department Care Team ([facility] st Contact Info) Description 10/29/2024 9:00 AM EDT Nurse Only [address] [address] 11/04/2024 10:45 AM EDT Office Visit [facility] [place] [address] Name, [place] [address] Scheduled Referrals Name Type Priority Associated Diagnoses Order Schedule Referral to Orthopaedic Surgery Outpatient Referral Routine Left elbow pain Finger pain, right Expected: 09/10/2024 (Approximate), Expires: 09/10/2025 documented as of this encounter Procedures Procedure Name Priority Date/Time Associated Diagnosis Comments XR FINGERS 2+ VIEWS RIGHT Routine 09/10/2024 9:28 AM EST Finger pain, right XR ELBOW 3+ VIEWS LEFT Routine 09/10/2024 9:28 AM EST Left elbow pain documented in this encounter Results * XR Fingers 2+ Views Right (09/10/2024 9:28 AM EST) Anatomical Region Laterality Modality Upper Extremities, Fingers Right Radio graphic Imaging 09/10/2024 9:28 AM EST Narrative 09/10/2024 10:05 AM EST ?[facility] ?[address] ?[place] [address] ?XRay Report ? Signed ? Patient: Traci Dahl ?MR#: [id number] ?? [id number] ? : 1975 ?Acct:[id number] ? Age/Sex: 49 / F ?ADM Date: 09/10/24 ? Loc: HO.HHCX ? Attending Dr: Denny Washington MD ? Ordering Physician: DENNY WASHINGTON MD ?? Date of Service: 09/10/24 ?? Procedure(s): XR finger RT min 2V ?? Accession Number(s): [id number] ? cc: DENNY WASHINGTON MD ? EXAMINATION: ?? XR FINGER, RIGHT [...] in OV> ? 09/10/24 1002 ? DD/ ? TD/TT: 09/10/24 0950 ? J2Ee Engineer: ? Procedure Note Diana, Image - 09/10/[address] [address] XRay Report Signed Patient: Traci DahlMR#: [id number] : 1975Acct:[id number] Age/Sex: 49 / FADM Date: 09/10/24 Loc: HO.HHCX Attending Dr: Denny Washington MD Ordering Physician: DENNY WASHINGTON MD Date of Service: 09/10/24 Procedure(s): XR finger RT min 2V Accession Number(s): [id number] cc: DENNY WASHINGTON MD EXAMINATION: XR FINGER, RIGHT CLINICAL INFORMATION: [...] Ronald Loo MDin OV> 09/10/24 1002 DD/ TD/TT: 09/10/24 0950 J2Ee Engineer: us Denny Washington MD IMYuri XR PROCEDURES Final Result * XR Elbow 3+ Views Left (09/10/2024 9:28 AM EST) Anatomical Region Laterality Modality Upper Extremities, Elbow Left Radiogr aphic Imaging 09/10/2024 9:28 AM EST Narrative 09/10/2024 10:05 AM EST ?[facility] ?[address] ?[place] [address] ?XRay Report ? Signed ? Patient: Traci Dahl ?MR#: [id number] ?? [id number] ? : 1975 ?Acct:[id number] ? Age/Sex: 49 / F ?ADM Date: 09/10/24 ? Loc: HO.HHCX ? Attending Dr: Denny Washington MD ? Ordering Physician: DENNY WASHINGTON MD ?? Date of Service: 09/10/24 ?? Procedure(s): XR elbow LT min 3V ?? Accession Number(s): [id number] ? cc: DENNY WASHINGTON MD ? EXAMINATION: ?? XR ELBOW, LEFT [...] Bell MD ??09/10/2024 10:03 AM ?? EST RP ? Dictated By: ?Ronald Chisholm MD ? Signed By: ?<Electronically signed by Ronald Loo MD in OV> ? 09/10/24 1003 ? DD/ 0928 ? TD/TT: 09/10/24 0950 ? J2Ee Engineer: ? Procedure Note Diana, Image - 09/10/2024 [facility] [address] [place] [address] XRay Report Signed Patient: Traci DahlMR#: [id number] : 1975Acct:[id number] Age/Sex: 49 / FADM Date: 09/10/24 Loc: HO.HHCX Attending Dr: Denny Washington MD Ordering Physician: DENNY WASHINGTON MD Date of Service: 09/10/24 Procedure(s): XR elbow LT min 3V Accession Number(s): [id number] cc: DENNY WASHINGTON MD EXAMINATION: XR ELBOW, LEFT CLINICAL INFORMATION: [...] Ronald Bell MD 09/10/2024 10:03 AM EST Dictated By: Ronald Chisholm MD Signed By: <Electronically signed by Ronald Loo MDin OV> 09/10/24 1003 DD/ 0928 TD/TT: 09/10/24 0950 J2Ee Engineer: Denny Washington MD IMG XR PROCEDURES Final Result documented in this encounter Visit Diagnoses Diagnosis Left elbow pain- Primary Pain in joint, upper arm Finger pain, right Pain in soft tissues of limb documented in this encounter Additional Health Concerns Assessment Noted Time PHQ-9 Depression Total Score: 14 05/24/ 024 12:49 PM EST documented as of this encounter Care Teams Marble Finisher Relationship Specialty Start Date End Date Name, MD Morales [address] [place] [address] PCP - General Family Medicine 07/01/21 documented as of this encounter
--- OUTSIDE RECORDS SUMMARY | 2024-09-10 10:33 | XMS_ITS | Patient Health Record ---
Author Organization [facility] Address [address] [place] [address] Care Team Providers Care Embalmer/Funeral Director Name Role Phone Linda Lopez Primary Care Provider Jamarcus Anderson Unavailable [phone] ALLERGIES Allergen (clinical drug ingredient) Drug/Non Drug Allergy documented on EMR Reaction Allergy Type Onset Date Status PredniSONE Unknown Drug Allergy Active naproxen Naproxen Unknown Drug Allergy Active Motrin Unknown Drug Allergy Active RESULTS Component Value Reference Range Notes Pathology Reviewed date:04/03/2024 08:25:28 AM Interpretation: Performing Lab:[facility], [address] [place] [address] Notes/Report: REASON FOR REFERRAL Referring Provider First Name Morales Referring Provider Last Name Name Referring Provider Speciality Internal M edicine Referred Organization [facility] Referred Provider Jamarcus Banda Referred Address [address] [facility],[address],[place], [place],[address], Referred Provider Specialty Gastroentero logy Referral Priority Routine MEDICATIONS Medication SIG (Take, Route, Frequency, Duration) Notes Start Date End Date Status Albuterol Active Omeprazole 20 MG 1 capsule Orally Onc e a day Active Hpnwimyoxp-BTVG-Bbxjsfcu 50-325-40 MG TAKE ONE TABLET BY MOUTH [...] Code Notes Problem Heartburn (R12) Active confirmed 413256 00 Problem Gastroesophageal reflux disease, esophagitis presence not specified (K21.9) Active confirmed 006777032 Problem Esophageal stricture (K22.2) Active confirmed Esophageal stricture (39247074) Problem Diverticulosis large intestine w/o perforation or abscess w/o bleeding (K57.30) Active confirmed Diverticul ar disease of colon (609780981) Encounters Encounter Location Date Provider Diagnosis [facility] [address] [place] [address] 08/07/2024 Jamarcus Banda [facility] [address] [place] [address] 04/03/2024 Jamarcus Banda [facility] [address] [place] [address] 08/05/2024 Jamarcus Banda PLAN OF TREATMENT Pending Test Test Name Order Date GI BIOPSY 01/03/2018 Future Test Test Name Order Date UPPER GI ENDOSCOPY 08/22/2017 Next Appt Details Provider Name:Jamarcus Banda , 12/05/2024 11:00:00 AM, [address], [address], [place], [address], Insurance Providers Payer Name Payer Address Payer Phone Subscriber Number Group Number Insured Name Patient Relationship to Insured Coverage Start Date Coverage End Date MEDICAID OF [employer] [address] [place] [phone] [id number] CHUCHO HOLM Self - patient is the insured MEDICAL (GENERAL) HISTORY Medical History History ICD Code Denies UT,CVA,renal disease Hypertension NIDDM Asthma GERD--[place]--she describes gastritis with probable H.pylori and a hiatal hernia--describes being treated with antibiotics Sleep apnea--uses CPAP Mild diverticulitis on CT scan in 7 Surgical History Surgery Date(Month/Year) Tubal ligation 1997 Cholecystectomy 1997
--- OUTSIDE RECORDS SUMMARY | 2024-09-10 10:34 | XMS_ITS ---
Author Organization [facility] Address [address] [place] [address] Care Team Providers Care Staff Counselor Name Role Phone Linda Lopez Primary Care Provider Unavailab Jamarcus Lopez Unavailable [phone] REASON FOR VISIT Patient presents today for HEMMORHAGE Encounters Encounter Location Date Provider Diagnosis [facility] [address] [place] [address] 08/07/2024 Jamarcus Banda PLAN OF TREATMENT Next Appt Details Provider Name:Jamarcus Banda , 12/05/2024 11:00:00 AM, [address], [address], [place], [address],
== END 2024-09-10 09:28 | disposition home or self-care (01) ==
LOC: HO.HHCX 09:27
PROVIDERS: Visit Provider Emergency Medicine
DX: M25.522 Pain in left elbow (principal); M79.644 Pain in right finger(s)
CPT/HCPCS: 73080; 73140

== ENCOUNTER → 2024-09-10 09:28 | Outpatient (BNV) | payer MEDICAID, SELFPAY | PROVIDERS: Visit Provider Radiology Diagnostic Radiology | DX: M25.522 Pain in left elbow (principal); M79.644 Pain in right finger(s) | CPT/HCPCS: 73080; 73140 ==

== ENCOUNTER → 2024-09-13 07:58 | Outpatient (REF) | payer MEDICAID, SELFPAY ==
--- OUTSIDE RECORDS SUMMARY | 2024-09-13 08:03 | XMS_ITS | Clinical Summary ---
Author Organization [facility] [address] Address [address] [place] [address] Phone Care Team Providers Care Commercial Loan Officer Name Role Phone Unavailable Primary Care Provider [...] ?? For additional information please refer to http://education.Elastica.Oxtox/faq/OAI298 (This link is being provided for informational/ educational purposes only.) The performance of this assay has not been clinically validated in patients less than 2 years old. Blood 01/29/2024 10:5 5 AM EDT 01/29/2024 10:56 AM EDT Narrative Resulting Agency Comment Performing Lab: ?Site ID: [id number] ?Name: [facility] ?Address: [address] [place] [address] ?Director: Guilherme Quinteros M.D. Rachael JANE LAB BLOOD ORDERABLES F inal Result Performing Organization Address [facility] de Phone Number [facility] [address] * Hepatitis C Ab with reflex to HCV PCR (01/29/2024 10:55 AM EDT) Pathologist [facility] Hepatitis C Ab NON-REACT KIERAN NON-REACT KIERAN [facility] Comment: HCV antibody was non-reactive. There is no laboratory evidence of HCV infection. In most cases, no further action is required. However, if recent HCV exposure is suspected, a test for HCV RNA (test code 55470) is suggested. For additional information please refer to http://education.TxtFeedback/faq/VYN60z5 (This link is being provided for informational/ educational purposes only.) 01/29/2024 10:5 5 AM EDT 01/29/2024 10:56 AM EDT Narrative Resulting Agency Comment Performing Lab: ?Site ID: [id number] ?Name: [facility] ?Address: [address] [place] [phone] ?Director: Guilherme Quinteros M.D. Rachael JANE LAB BLOOD ORDERABLES F inal Result Performing Organization Address [facility] Co de Phone Number [facility] [address] [place] [address] * (ABNORMAL) Lipid panel with reflex to direct LDL (Q) (01/29/2024 10:51 AM EDT) Pathologist [facility] Cholesterol, Total 203(H) <200 mg/dL [facility] [...] LDL-C. Misael SS et al. BELLA. 2013;310(19): 1580-1515 (http://education.[place].Oxtox/faq/VKQ986) Chol/HDL Ratio 3.6 <5.0 (calc) [facility] Non-HDL Cholesterol 146(H) <130 mg/dL (calc) [facility] Comment: For patients with diabetes plus 1 major ASCVD risk factor, treating to a non-HDL-C goal of <100 mg/dL (LDL-C of <70 mg/dL) is considered a therapeutic option. 01/29/2024 10:5 1 AM EDT 01/29/2024 10:52 AM EDT Narrative Resulting Agency Comment Performing Lab: ?Site ID: [id number] ?Name: [facility] ?Address: [address] [place] [phone] ?Director: Guilherme Quinteros M.D. Rachael JANE LAB BLOOD ORDERABLES F inal Result [facility] [address] [place] [address] * (ABNORMAL) Comprehensive metabolic panel (01/29/2024 10:51 AM EDT) [facility] Glucose 79 65 - 99 mg/dL [facility] [...] Comment Performing Lab: ?Site ID: [id number] ?Name: [facility] ?Address: [address] [place] [phone] ?Director: Guilherme Quinteros M.D. Rachael JANE LAB BLOOD ORDERABLES F inal Result Performing Organization Address City/State/[facility] Co de Phone Number [facility] [address] [place] [address] from Last 3 Months or Most Recently Relevant to Health Maintenance Insurance [place]
--- OUTSIDE RECORDS SUMMARY | 2024-09-13 08:03 | XMS_ITS ---
Author Organization [facility] Address [address] [place] [address] Care Team Providers Care Wing Mailer Machine Operator Name Role Phone Linda Lopez Primary Care Provider UnavailJamarcus Bermeo [phone] REASON FOR VISIT pathology Encounters Encounter Location Date Provider Diagnosis [facility] [address] [place] [address] 04/03/2024 Jamarcus Banda Plan Of Treatment Next Appt Details Provider Name:Jamarcus Banda , 12/05/2024 11:00:00 AM, [address], [address], [place], [address], Progress Notes * CHUCHO HOLMDOB:[birth year] (48 yo F)Acc No.[id number]:04/03/2024 Patient:?CHUCHO HOLM :1975???Age:48 Y???Sex:Female Address:[address] [place] [address] [address], [place], [address] * true * Date:? Generated for Debbiei francisco j/Cadence/eTransmitting on:?09/13/2024 08:03 AM EST
--- OUTSIDE RECORDS SUMMARY | 2024-09-13 08:03 | XMS_ITS ---
Author Organization [facility] Address [address] [place] [address] Care Team Providers Care Menhaden Vessel Pilot Name Role Phone Linda Lopez Primary Care Provider UnavailJamarcus Bermeo [phone] Encounters Encounter Location Date Provider Diagnosis [facility] [address] [place] [address] 08/05/2024 Jamarcus Banda Plan Of Treatment Next Appt Details Provider Name:Jamarcus Banda , 12/05/2024 11:00:00 AM, [address], [address], [place], [address], Progress Notes * CHUCHO HOLMDOB:[birth year] (49 yo F)Acc No.[id number]:08/05/2024 Patient:?CHUCHO HOLM :1975???Age:49 Y???Sex:Female Address:[address] , [place], [address] * true * Date:? Generated for Kalpana marx/Cadence/eTransmitting on:?09/13/2024 08:03 AM EST
--- OUTSIDE RECORDS SUMMARY | 2024-09-13 08:03 | XMS_ITS | Patient Health Record ---
Author Organization [facility] Address [address] [place] [address] Care Team Providers Care Hvac Journeyman Name Role Phone Linda Lopez Primary Care Provider Jamarcus Anderson [phone] Allergies Allergen (clinical drug ingredient) Drug/Non Drug Allergy documented on EMR Reaction Allergy Type Onset Date Status PredniSONE Unknown Drug Allergy Active naproxen Naproxen Unknown Drug Allergy Active Motrin Unknown Drug Allergy Active Results Component Value Reference Range Notes Pathology Reviewed date:04/03/2024 08:25:28 AM Interpretation: Performing Lab:[facility], [address] [place] [address] Notes/Report: Name: Gretchen Holm Age/Sex: 48/F : 1975 Unit#: [id number] Attend Dr: Paolo Olivas MD Re03/17/24 Status : DIS IN Location: [facility] 450-1 Disch: 03/23/24 SPEC : [id number] RECD : 03/25/24 STATUS: CHELSEA MANCINI NUM: [id number] GRANT: 03/22/24-14[address] [facility] [address]: Kameron Olivo MD ENTERED: 03/25/24 SP TYPE: Surgical OTHR DR: Paolo Olivas MD Name,Morales RAMSEY ORDERED: HE Stain/3, Gross Micro L4, IHC, H. pylori Addendum Addendum 1 Entered: 03/28/24 Immunostain for H. p ylori is negative. Control stains appropriately. Addendum Signed ____ __(signature on file) Priti Ellis 03/28/241123 Diagnosis Gastric antrum, biop sy: Gastric antral mucosa with minimal chronic inactive gastritis; negative for intesti nal metaplasia and dysplasia. Comment: Immunostain for H. pylori is pending; addendum to follow. Clinical History Pre-Op Dx: GI bleed Post-Op Dx: Schatzki ring, hiatal hernia Microscopic Description Microscopic sections reviewed. Material Received Antrum bxs Gross Description Received in formalin labeled ?antrum biopsies? are 3 fragments of translucent, white soft tissue ranging from 0.3-0.4 cm in greatest dimension which are entirely submitted for microscopic examinat ion, 3 pieces in cassette A. [facility] Special studies orde red and performed: Immunostain for H. pylori on A1. CONTINUED ON NEXT PAGE Name: Gretchen Holm Age/Sex: 48/F : 1975 Unit#: [id number] Attend Dr: Paolo Olivas MD Re03/17/24 Status : DIS IN Location: [facility] 450-1 Disch: 03/23/24 SPEC : [id number] RECD : 03/25/24 STATUS: CHELSEA MANCINI NUM: [id number] GRANT: 03/22/24-[address] [facility] [address]: Kameron Olivo MD ENTERED: 03/25/24- 15 SP TYPE: Surgical OTHR DR: Paolo Olivas MD Name,Morales RAMSEY ORDERED: HE Stain/3, Gross Micro L4, IHC, H. pylori Copies To: Kameron Olivo MD [facility] [address] [place] [address] Paolo Olivas MD [address] [place] [address] Name,Morales RAMSEY [address] [place] [address] [phone] Signed (si gnature on file) Priti Ellis 03/26/24 1035 END OF REPORT Reason For Referral Referring Provider First Name Morales Referring Provider Last Name Name Referring Provider Speciality Internal M edicine Referred Organization [facility] Referred Provider Jamarcus Banda Referred Address [address] [place] [address],[place], [place],[address], Referred Provider Specialty Gastroentero logy Referral Priority Routine Medications Medication SIG (Take, Route, Frequency, Duration) Notes Start Date End Date Status Albuterol Active Omeprazole 20 MG 1 capsule Orally Onc e a day Active Ywnbxxagba-NUXH-Sndzlxdi 50-325-40 MG TAKE ONE TABLET BY MOUTH [...] MOUTH EVERY DAY Oral for 30 Active Social History Tobacco Use: Social History Observation Description Date Details (start date - stop date) Never Smoker NA - NA Tobacco Use/Smoking Question Answer Notes Patient is a nonsmoker Alcohol Screen Question Answer Notes Did you have a drink containing alcohol in the p ast year? No Points 0 Interpretation Negative Section Notes: Nonsmoker; no alcohol Problems Problem Type SNOMED Code ICD Code Onset Dates Problem Status W/U Status Risk Notes Problem 26355701 Heartburn (R12) Active confirmed Problem 862109548 Gastroesophageal reflux disease, esophagitis presence not specified (K21.9) Active confirmed Problem Esophageal stricture (83752788) Esophageal stricture (K22.2) Active confirmed Problem Diverticular disease of colon (879558235) Diverticulosis large intestine w/o perforation or abscess w/o bleeding (K57.30) Active confirmed Encounters Encounter Location Date Provider Diagnosis [facility] [address] [place] [address] 04/03/2024 Jamarcus Banda [facility] [address] [place] [address] 08/05/2024 Jamarcus Banda Plan Of Treatment Pending Test Test Name Order Date GI BIOPSY 01/03/2018 Future Test Test Name Order Date UPPER GI ENDOSCOPY 08/22/2017 Next Appt Details Provider Name:Jamarcus Banda , 12/05/2024 11:00:00 AM, [address] [facility] [address], [address], [place], [address], Insurance Providers Payer Name Payer Address Payer Phone Subscriber Number Group Number Insured Name Patient Relationship to Insured Coverage Start Date Coverage End Date MEDICA[place] OF [place] [address] [place] [phone] [id number] CHUCHO HOLM Self - patient is the insured Medical (General) History Medical History History ICD Code Denies NM,CVA,renal disease Hypertension NIDDM Asthma GERD--[place]--she describes gastritis with probable H.pylori and a hiatal hernia--describes being treated with antibiotics Sleep apnea--uses CPAP Mild diverticulitis on CT scan in 7 Surgical History Surgery Date(Month/Year) Tubal ligation 1997 Cholecystectomy 1997
--- OUTSIDE RECORDS SUMMARY | 2024-09-13 08:03 | XMS_ITS | Clinical Summary ---
Author Organization [facility] Address [address] [place] [address] Care Team Providers Care Java Grails Developer Name Role Phone Unavailable Primary Care Provider [...]
--- NOTE | 2024-09-13 08:04 | CA_ITS ---
Transthoracic Echocardiogram Patient (Last, First, Middle): Traci Dahl, Gender: Female Date of : 1975 Age: 49 Procedure Date: 09/13/2024 Procedure Type: Transthoracic Echocardiogram Location: OP Height: 162.56 cm Weight: 97.98 kg BSA: 2.02 m2 Heart Rate: bpm BP: 110 / 70 mmHg Lard Tub Washer: TO Referring MD: Masood Moreno MD Superannuation Clerk: Masood Moreno MD Symptoms: R00.2 - Palpitations Study Quality: Adequate ECG Rhythm: Sinus Conclusions: - Normal study Findings Left Ventricle Normal left ventricular size, thickness, and systolic function. The visually estimated ejection fraction is between 55-60%. Spectral Doppler is indicative of a normal filling pattern. Peak GLS is -19.1%, within normal limits. Right Ventricle Normal right ventricular cavity size and systolic function. Atria Both atria are normal in size. There is no evidence of interatrial shunt. Aortic Valve Normal aortic valve structure and function. There is no aortic valve stenosis. There is no aortic valve regurgitation. Mitral Valve Normal mitral valve structure and function. There is trace mitral valve regurgitation. There is no mitral valve stenosis. Pulmonic Valve The pulmonic valve is likely normal. Tricuspid Valve Normal tricuspid valve structure. There is trace tricuspid valve regurgitation. The right ventricular systolic pressure is normal. The right ventricular systolic pressure is 16 mmHg. Normal right atrial pressure. There is no evidence of pulmonary hypertension. Great Vessels All visible segments of the aorta are normal in size. The pulmonary artery was not well visualized. There is no dilatation of the ascending aorta measuring 3.30 cm. Venous The inferior vena cava is normal in size and collapses greater than 50% with inspiration. Pericardium/Pleural There is no evidence of pericardial effusion. Prior Study Comparison No prior study available for comparison. Measurements 2D Linear Measurements IVSd: 0.87 0.6-0.9/0.6-1.0 cm LVIDd: 4.59 3.9-5.3/4.2-5.9 cm LVIDd Index: 2.27 2.4-3.2/2.2-3.1 cm/m2 LVIDs: 2.99 2.0-3.6 cm LVPWd: 0.83 0.7-1.1 cm LA Diam: 3.20 2.7-3.8/3.0-4.0 cm LAIDs Index: 1.58 1.5-2.3 cm/m2 LV Mass: 158.37 67-162/88-224 g LV Mass Index: 78.40 43-95/49-115 g/m2 LVOT Diam: 2.20 3.0+(-)1.3 cm 2D Systolic Function EF 4C: 60.80 >55% EF 2C: 54.30 >55% EF BiP: 57.80 >55% Mitral Valve MV Pk E: 0.54 MV PK A: 0.49 MV Decel Time: 260.00 E/A: 1.10 E'Lateral: 10.90 E'Medial: 7.51 E/E' Med: 7.20 E/E' Lat: 5.00 PHT: 76.00 MVA PHT: 2.89 Decel Rutherford: 2.07 Aortic Valve AoV Pk Amadeo: 1.22 AoV Mn Amadeo: 0.86 AoV VTI: 0.26 AoV Pk Grad: 6.00 Aov Mn Grad: 3.00 OSEAS Cont.VTI: 2.67 LVOT LVOT Pk Amadeo: 0.97 LVOT Mn Amadeo: 0.64 LVOT VTI: 0.19 LVOT Pk Grad: 4.00 LVOT Mn Grad: 2.00 LVOT Diam: 2.20 LVOT Area: 3.80 Diastolic Function MV Pk E: 0.54 MV Pk A: 0.49 E/A: 1.10 E'Medial: 7.51 E/E' Med: 7.20 E' Laterial: 10.90 E/E' Lat: 5.00 Right Ventricle TAPSE (mm): 22.20 TVS' Amadeo: 9.90 Tricuspid Valve TR Pk Amadeo: 1.81 TR Pk Grad: 13.00 RA Press: 3.00 RVSP: 16.00 Great Vessels Aorta Sinus of Valsalva: 3.09 2.0-3.5 cm Ao Asc: 3.30 2.1-3.4 cm Updated in Other Vendor System with Status of Final Masood Moreno MD electronically signed on 09/14/2024 12:28:06 PM with status of Final
--- OUTSIDE RECORDS SUMMARY | 2024-09-13 08:04 | XMS_ITS ---
Author Organization [facility] Address [address] [place] [address] Care Team Providers Care Control Systems Specialist Name Role Phone Linda Lopez Primary Care Provider Unavailab Jamarcus Lopez [phone] REASON FOR VISIT Patient presents today for HEMMORHAGE Encounters Encounter Location Date Provider Diagnosis [facility] [address] [place] [address] 08/07/2024 Jamarcus Banda Plan Of Treatment Next Appt Details Provider Name:Jamarcus Banda , 12/05/2024 11:00:00 AM, [address], [address], [place], [address], Progress Notes * CHUCHO HOLMDOB:[birth year] (49 yo F)Acc No.[id number]:08/07/2024 Progress Notes Patient:?CHUCHO HOLM Provider:?Jamarcus Banda MD :1975???Age:49 Y???Sex:Female D ate:08/07/2024 Address:[address] [phone] Pcp:Linda Howell Subjective: * Chief Complaints: * ???1. Patient presents today for HEMMORHAGE. * Medical History:? Objective: * Vitals:? Assessment: Plan: * Treatment: * * The named appointment provid er may or may not be the originator of this progress note, and it is not deemed complete until electronically signed by the appointment provider. Sign off status: Pending * Provider:?Jamarcus Banda MD Date:? 025 Generated for Kalpana marx/Cadence/Dez on:?09/13/2024 08:03 AM EST
== END ==
LOC: HO.CARD 07:58
PROVIDERS: PCP Internal Medicine Geriatric Medicine; Visit Provider Internal Medicine Cardiovascular Disease
DX: R00.2 Palpitations (principal)
CPT/HCPCS: 93242; 93306

== ENCOUNTER → 2024-09-13 08:04 | Outpatient (BNV) | payer MEDICAID, SELFPAY | PROVIDERS: PCP Internal Medicine Geriatric Medicine; Visit Provider Internal Medicine Cardiovascular Disease | DX: I49.1 Atrial premature depolarization (principal); I49.3 Ventricular premature depolarization | CPT/HCPCS: 93244 ==

== ENCOUNTER → 2024-09-17 08:43 | Outpatient (REF) | payer MEDICAID, SELFPAY ==
--- NOTE | 2024-09-17 08:46 | CA_ITS ---
Acquisition Time: 2024-09-17 09:08:42 Total Exercise Time: 00:05:59 Test Indications: CP,Palpitations SVT Medications: ALBUTEROL INHALER PANTOPRAZOLE Protocol: FERMÍN Max HR: 153 BPM 90% of Pred: 170 BPM Max BP: 148/80 mmHG Max Work Load: 7.0 METS Exercise Stress Test with exercise 5 mins 59 secs of Fermín Protocol, achieving 88% MPHR, with reports of palpitations and 6/10 rightsided burning chest pain that resolved quickly in recovery, without any arrythmias, with normotensive response to exercise. Without EKG changes meeting criteria for ischemia. In recovery, pt feeling back to baseline. Will order stress echo to further evaluate the chest discomfort. Test reviewed with Dr. Sanchez. Referred By: Masood Moreno Electronically Signed By: Dominic Cohn
--- OUTSIDE RECORDS SUMMARY | 2024-09-17 09:31 | XMS_ITS | Clinical Summary ---
Author Organization [employer] Address [address] [facility] 7t [place] [address] Care Team Providers Care Shoeshiner Name Role Phone Name, Morales RAMSEY Primary Care Provider [phone] Allergies Active Allergy Reactions Criticality Noted Date [...] for Anxiety and Depression During IBH Consult rTaci presenting with depressed mood, Tearful, irritable mood, [...] Patient to reach out to [facility] team as needed, Patient to engage in OP therapy , and Patient to reach out to [facility] as needed S/P laparoscopic sleeve gastrectomy 08/12/2022 Overview (08/12/2022): Dr. Ortiz, [facility], 07/2022 Chronic low back pain 06/18/2022 Dysmenorrhea 06/18/2022 Esophageal dysphagia 06/18/2022 Hypertensive disorder 06/18/2022 Lower esophageal ring 06/18/2022 Morbid obesity 06/18/2022 Pain in pelvis 06/18/2022 Umbilical hernia 06/18/2022 Prediabetes 08/23/2021 Encounters Date Type Department Care Team Description 09/10/2024 9:00 AM EST Office Visit [facility] [place] [address] [place] [address] Denny Bocanegra MD Left elbow pain (Primary Dx); Elbow injury, left, initial encounter; Finger pain, right 09/09/2024 Orders Only [facility] External Provider, [facility] 07/02/2024 Refill [facility] [address] [place] [address] Name, MD Morales 06/24/2024 Telephone [facility] [address] [facility] [place] [address] Yumiko Fabian MA feb recall 06/19/2024 9:00 AM EST Office Visit [facility] [address] [facility] [place] [address] Denny Bocanegra MD Acute pain of right shoulder (Primary Dx) from Last 3 Months Immunizations Name Administration [...] Care Team (Late st Contact Info) Description 11/04/2024 9:00 AM EDT Nurse Only [facility] [address] [place] [address] 11/04/2024 10:45 AM EDT Office Visit [facility] [address] [place] [address] Name, MD Morales [address] [place] [address] Health Maintenance Due Date Last Done Comments [...] Procedure Name Priority Date/Time Associated Diagnosis Comments MR SHOULDER WO CONTRAST RIGHT Routine 09/11/2024 2:40 PM EST XR FINGERS 2+ VIEWS RIGHT Routine 09/10/2024 [...] Recently Relevant to Health Maintenance Results * MR Shoulder w/o Contrast Right (09/11/2024 2:40 PM EST) Anatomical Region Laterality Modality Upper Extremities, Shoulder Right Magn etic Resonance 09/11/2024 2:40 PM EST Narrative 09/11/2024 2:42 PM EST ? [facility] ?[address] ?[place], [place] [address] ? Magnetic Resonance Report ? Signed ? Patient: Traci Dahl ?MR#: [id number] ?? [id number] ? : 1975 ?Acct:[id number] ? Age/Sex: 49 / F ?ADM Date: 09/09/24 ? Loc: HO.MRI ? Attending Dr: Best Sierra MD ? Ordering Physician: Best Sierra MD ?? Date of Service: 09/09/24 ?? Procedure(s): MR shoulder RT wo con ?? Accession Number(s): [id number] ? cc: Name,Morales RAMSEY; Best Sierra MD ? CLINICAL HISTORY: M25.311 - Other instability, right shoulder ? MR right shoulder ? Comparison: None ? Findings: ?? No fracture or dislocation of the osseous structures. There is edema at ?? the acromion and distal clavicle centered upon the acromioclavicular ?? joint,. There is a trace amount of edema in the glenoid of the ?? superior/posterior aspect, likely degenerative. There is cystic change in ?? the humeral head. Cyst in the distal clavicle measuring 7 mm, ?? degenerative. The acromioclavicular joint demonstrates joint space ?? narrowing and osteophytosis. ? Joint fluid is within normal limits. There is a trace amount of fluid in ?? the subacromial/subdeltoid and subcoracoid bursa. ? There is a prominent amount of increased signal within the supraspinatus ?? tendon. There is partial tear at bursal surface without retraction or ?? muscular atrophy. There is moderate increased signal within the ?? infraspinatus and subscapularis tendons. No tear of the infraspinatus ?? tendon. There is partial tear of the subscapularis tendon without ?? retraction or muscular atrophy. Teres minor is unremarkable. ? No identified labral tear. There is partial-thickness glenohumeral ?? chondromalacia, degenerative. The biceps tendon and bicipital-labral ?? anchor are normal. The coracoacromial and coracohumeral ligaments are ?? intact. There is increased signal within coracoclavicular ligament. ? Cutaneous and subcutaneous tissues are normal. The quadrilateral space is ?? unremarkable. ? Impression: ?? Tendinopathy of supraspinatus, infraspinatus and subscapularis. Partial ?? tears of supraspinatus and subscapularis without retraction or muscular ?? atrophy. ?? Bone marrow edema in the acromion and distal clavicle which is centered ?? upon the acromioclavicular joint is likely secondary to degenerative ?? change. Trauma may also be considered. There is edema in the ?? coracoclavicular ligament without discontinuity which may indicate sprain. ?? Trace fluid within the subacromial/subdeltoid and subcoracoid bursa. ? This document has been electronically signed by: Skyla Ramos MD ?? on 09/11/2024 14:40:52 ? Dictated By: ?Skyla Childress MD ? Signed By: ?<Electronically signed by Skyla Childress MD in OV> ? 09/11/24 1442 ? DD/ 1440 ? TD/TT: 09/11/24 1440 ? Housekeeping/Laundry Supervisor: ? Procedure Note Diana, Nikki - 09/11/2024 [place] [address] Magnetic Resonance Report Signed Patient: Traci DahlMR#: [id number] : 1975Acct:[id number] Age/Sex: 49 / FADM Date: 09/09/24 Loc: HO.MRI Attending Dr: Best Sierra MD Ordering Physician: Best Sierra MD Date of Service: 09/09/24 Procedure(s): MR shoulder RT wo con Accession Number(s): [id number] cc: Morales Ly MD; Best Sierra MD CLINICAL HISTORY: M25.311 - Other instability, right shoulder MR right shoulder Comparison: None Findings: No fracture or dislocation of the osseous structures. There is edema at the acromion and distal clavicle centered upon the acromioclavicular joint,. There is a trace amount of edema in the glenoid of the superior/posterior aspect, likely degenerative. There is cystic change in the humeral head. Cyst in the distal clavicle measuring 7 mm, degenerative. The acromioclavicular joint demonstrates joint space narrowing and osteophytosis. Joint fluid is within normal limits. There is a trace amount of fluid in the subacromial/subdeltoid and subcoracoid bursa. There is a prominent amount of increased signal within the supraspinatus tendon. There is partial tear at bursal surface without retraction or muscular atrophy. There is moderate increased signal within the infraspinatus and subscapularis tendons. No tear of the infraspinatus tendon. There is partial tear of the subscapularis tendon without retraction or muscular atrophy. Teres minor is unremarkable. No identified labral tear. There is partial-thickness glenohumeral chondromalacia, degenerative. The biceps tendon and bicipital-labral anchor are normal. The coracoacromial and coracohumeral ligaments are intact. There is increased signal within coracoclavicular ligament. Cutaneous and subcutaneous tissues are normal. The quadrilateral space is unremarkable. Impression: Tendinopathy of supraspinatus, infraspinatus and subscapularis. Partial tears of supraspinatus and subscapularis without retraction or muscular atrophy. Bone marrow edema in the acromion and distal clavicle which is centered upon the acromioclavicular joint is likely secondary to degenerative change. Trauma may also be considered. There is edema in the coracoclavicular ligament without discontinuity which may indicate sprain. Trace fluid within the subacromial/subdeltoid and subcoracoid bursa. This document has been electronically signed by: Skyla Ramos MD on 09/11/2024 14:40:52 Dictated By: Skyla Childress MD Signed By: <Electronically signed by Skyla Childress MD in OV> 09/11/24 1442 DD/ 1440 TD/TT: 09/11/24 1440 Housekeeping/Laundry Supervisor: [facility] External Provider IMG MRI PROCEDURES Edited Result - Final * XR Fingers 2+ Views Right (09/10/2024 9:28 AM EST) Anatomical Region Laterality Modality Upper Extremities, Fingers Right Radio graphic Imaging 09/10/2024 9:28 AM EST Narrative 09/10/2024 10:05 AM EST ?[facility] ?[address] ?[place] [address] ?XRay Report ? Signed ? Patient: Traci Dahl ?MR#: [id number] ?? [id number] ? : 1975 ?Acct:[id number] ? Age/Sex: 49 / F ?ADM Date: 09/10/24 ? Loc: HO.HHCX ? Attending Dr: Denny Bocanegra MD ? Ordering Physician: DENNY BOCANEGRA MD ?? Date of Service: 09/10/24 ?? Procedure(s): XR finger RT min 2V ?? Accession Number(s): [id number] ? cc: DENNY BOCANEGRA MD ? EXAMINATION: [...] DD/ 0928 ? TD/TT: 09/10/24 0950 ? Housekeeping/Laundry Supervisor: ? Procedure Note Nikki Ortiz - 09/10/2024 [facility] [address] [place] [address] XRay Report Signed Patient: Traci DahlMR#: [id number] : 1975Acct:[id number] Age/Sex: 49 / FADM Date: 09/10/24 Loc: HO.HHCX Attending Dr: Denny Bocanegra MD Ordering Physician: DENNY BOCANEGRA MD Date of Service: 09/10/24 Procedure(s): XR finger RT min 2V Accession Number(s): [id number] cc: DENNY BOCANEGRA MD EXAMINATION: XR FINGER, [...] 09/10/24 1002 DD/ 0928 TD/TT: 09/10/24 0950 Housekeeping/Laundry Supervisor: Denny Bocanegra MD IMG XR PROCEDURES Final Result * XR Elbow 3+ Views Left (09/10/2024 9:28 AM EST) Anatomical Region Laterality Modality Upper Extremities, Elbow Left Radiogr aphic Imaging 09/10/2024 9:28 AM EST Narrative 09/10/2024 10:05 AM EST ?[facility] ?[address] ?[place] [address] ?XRay Report ? Signed ? Patient: Lara Ortega,Traci ?MR#: [id number] ?? [id number] ? : 1975 ?Acct:[id number] ? Age/Sex: 49 / F ?ADM Date: 03/04/25 ? Loc: HO.HHCX ? Attending Dr: Denny Bocanegra MD ? Ordering Physician: DENNY BOCANEGRA MD ?? Date of Service: 09/10/24 ?? Procedure(s): XR elbow LT min 3V ?? Accession Number(s): [id number] ? cc: DENNY BOCANEGRA MD ? EXAMINATION: [...] 1003 ? DD/ ? TD/TT: 09/10/2450 ? Housekeeping/Laundry Supervisor: ? Procedure Note Diana, Nikki - 09/10/[address] [address] XRay Report Signed Patient: Traci DahlMR#: [id number] : 1975Acct:[id number] Age/Sex: 49 / FADM Date: 09/10/24 Loc: HO.HHCX Attending Dr: Denny Bocanegra MD Ordering Physician: DENNY BOCANEGRA MD Date of Service: 09/10/24 Procedure(s): XR elbow LT min 3V Accession Number(s): [id number] cc: DENNY BOCANEGRA MD EXAMINATION: XR ELBOW, [...] 09/10/24 1003 DD/ 0928 TD/TT: 09/10/24 0950 Housekeeping/Laundry Supervisor: us Denny Bocanegra MD IMG XR PROCEDURES Final Result * XR Shoulder 2+ Views Right (08/19/2024 9:25 AM EST) Anatomical Region Laterality Modality Upper Extremities, Shoulder Right Radi ographic Imaging 08/19/2024 9:25 AM EST Narrative 08/19/2024 9:56 AM EST ?[facility] ?[address] ?[place] [address] ?XRay Report ? Signed ? Patient: Marco PereztizMerylTraci ?MR#: [id number] ?? [id number] ? : 1975 ?Acct:[id number] ? Age/Sex: 49 / F ?ADM Date: 08/19/24 ? Loc: HO.HHCX ? Attending Dr: Denny Bocanegra MD ? Ordering Physician: DENNY BOCANEGRA MD ?? Date of Service: 08/19/24 ?? Procedure(s): XR shoulder RT min 2V ?? Accession Number(s): [id number] ? cc: DENNY BOCANEGRA MD ? EXAMINATION: [...] ? DD/ 4 ? TD/TT: 08/19/24948 ? Housekeeping/Laundry Supervisor: ? Procedure Note Donrudolphter, Image - 08/19/2024 [facility] [address] [place] [address] XRay Report Signed Patient: Traci DahlMR#: [id number] : 1975Acct:[id number] Age/Sex: 49 / FADM Date: 08/19/24 Loc: HO.HHCX Attending Dr: Denny Bocanegra MD Ordering Physician: DENNY BOCANEGRA MD Date of Service: 08/19/24 Procedure(s): XR shoulder RT min 2V Accession Number(s): [id number] cc: DENNY BOCANEGRA MD EXAMINATION: XR SHOULDER [...] in OV> 08/19/24953 DD/ 4 TD/TT: 08/19/24948 Housekeeping/Laundry Supervisor: Denny Bocanegra MD IMG XR PROCEDURES Edited Result - Final * Hemoglobin A1c (04/26/2024 8:28 AM EDT) Hemoglobin A1c 4.9 <6.0 % [facility] Comment:Hemoglobin A1C Refer ence Range Adults: 4.8 - 6.0 % Non diabetic: < 6.0 % Goal: < 7.0 %Additional Action Suggested: > 8.0 %Note: Hemoglobin A1c results are invalid for patients with abnormal amounts of HbF. Blood transfusions may impact the HbA1c concentration in the patient sample. Estimated Average Glucose 94 mg/dL [facility] Comment:eAG = Estimated ave rage glucose which is %A1C expressed asaverage glucose, using the formula of the W0V-HxyrjzcGyilbcs Glucose study (ADAG), Diabetes Care, Vol.31,#8,2007 04/26/2024 8:28 AM EDT 04/26/2024 8:28 AM EDT us Generic External Data Provider LAB BLOOD ORDERAB LES Final Result [facility] [address] [place] [phone] * (ABNORMAL) Lipid Panel, Standard (04/26/2024 8:28 AM EDT) Triglycerides 80 <150 mg/dL [facility] Comment:Desirable Triglyceri de: less than 150 mg/dLBorderline High Triglyceride 150-199 mg/dLHigh Triglyceride: 200-499 mg/dLVery High Triglyceride: greater than or equal to 5OO mg/dL Cholesterol 186 <200 mg/dL [facility] Comment:Desirable Cholestero l: less than 200 mg/dLBorderline High Cholesterol: 200-239 mg/dLHigh Cholesterol: greater than 239 mg/dL LDL Cholesterol Calculated 120(H) <100 mg/dL [facility] Comment:Desirable LDL: less than 100 mg/dLNear Optimal/Above Optimal LDL: 110- 129 mg/dLBorderline High LDL: 130-159 mg/dLHigh LDL: 160-189 mg/dLVery High LDL: greater than or equal to 190 mg/dL HDL Cholesterol 50 >40 mg/dL [facility] Comment:Desirable HDL: great er than 40 mg/dL Note: This HDL assay may give artificially low results in patients with liver disease. 04/26/2024 8:28 AM EDT 04/26/2024 8:28 AM EDT us Generic External Data Provider LAB BLOOD ORDERAB LES Final Result [facility] [address] [place] [address] [phone] * Hm Colonoscopy (03/18/2024) Colonoscopy Normal Normal 03/18/2024 us Morales Ly MD HEALTH MAINTENANCE Final Result * BI Mammogram Screening Tomosynthesis Bilateral (10/11/2022 12:03 PM EDT) Anatomical Region Laterality Modality Breast Bilateral Mammography 10/11/2022 12:0 3 PM EDT Narrative 10/12/2022 5:03 PM EDT ? [facility] [place] ? [address] ?[place] [address] ? Mammography Report ? Signed ? Patient: Marco OrtegaTraci ?MR#: [id number] ?? [id number] ? : 1975 ?Acct:[id number] ? Age/Sex: 47 / F ?ADM Date: // ? Loc: HO.MAMMO ? Attending Dr: Celso Galo CNM ? Ordering Physician: CELSO GALO CNM ?Results: 1 ?? Negative ? Date of Service: 10/11/22 ?Follow Up: 1 Year From Orig ?? inal Mammogram ? Procedure(s): MM tomosynthesis screening BI ?? Accession Number(s): [id number] ? cc: CELSO GALO CNM ? EXAMINATION: [...] 1700 ? DD/DT: 04//3 ? TD/TT: ? Housekeeping/Laundry Supervisor: ARRIAGA ? Procedure Note Nikki Ortiz - 10/12/2022 [facility] [address] [place] [address] Mammography Report Signed Patient: Traci DahlMR#: [id number] : 1975Acct:[id number] Age/Sex: 47 / FADM Date: 10/11/22 Loc: HO.MAMMO Attending Dr: Celso Galo CNM Ordering Physician: CELSO GALOesults: 1 Negative Date of Service: 10/11/22Follow Up: 1 Year From Orig inal Mammogram Procedure(s): MM tomosynthesis screening BI Accession Number(s): [id number] cc: CELSO GALO CNM EXAMINATION: MM SCREENING [...] in OV> 10/12/22 1700 DD/ 1203 TD/TT: Housekeeping/Laundry Supervisor: ARRIAGA [facility] External Provider IMG BI PROCEDURES Final Result * THINPREP TIS PAP AND HPV mRNA E6/E7 WITH REFLEX TO HPV 16,18/45 (07/12/2021 10:33 AM EST) Clinical Information: None given [facility] COMMENT SEE COMMENT [facility] ON [...] has been evaluated with computer assisted technology. [facility] Adhesive Sprayer: SEE COMMENT [facility] Comment: YP, CT(ASCP) CT screening location: [address] ??[address] HPV nRNA E6/E7 Not Detected Not Detected [facility] Ynvisible Comment: Methodology: Liquor Department Manager-Mediated Amplification This assay detects E6/E7 viral messenger RNA (mRNA) from 14 high-risk HPV types (16,18,31,33,35,39,45,51,52,56,58,59,66,68). ? The analytical performance characteristics of this assay have been determined by [employer]. The modifications have not been cleared or approved by the FDA. This assay has been validated pursuant to the CLIA regulations and is used for clinical purposes. ?? For additional information, please refer to http://education.[employer].Stayzilla/faq/WIT524i5 (This link if provided for information/ educational purposes only.) Interpretation/Re sult: Negative for intraepithelial lesion or malignancy. [facility] LMP: 121,321 [facility] Prev. BX: NONE GIVEN [facility] N [facility] Prev. PAP: NONE GIVEN [facility]OUND[facility] ON LAB SYSTEM SOURCE: None given [facility] Statement Of Adequacy: SEE COMMENT [facility] Comment: Satisfactory for evaluation. Endocervical/transformation zone component absent. 07/12/2021 10:3 3 AM EST Celso Galo CNM LAB PATHOLOGY ORDERABLES Final Result [facility] [address] from Last 3 Months or Most Recently Relevant to Health Maintenance Insurance [facility] Care Teams Shoeshiner Relationship Specialty Start Date End Date Name, MD Morales [address] [place] [address] PCP - General Family Medicine 07/01/21
--- OUTSIDE RECORDS SUMMARY | 2024-09-17 09:31 | XMS_ITS | Encounter Summary ---
Author Organization [employer] Address [address] [facility] [address] [place] [address] Care Team Providers Care Rack Puncher Name Role Phone Name, Morales RAMSEY Primary Care Provider [phone] Encounter Details Date Type Department Care Team ([facility] st Contact Info) Description 09/09/2024 Orders Only [facility] External Provider, [facility] Social History Tobacco Use Types Packs/Day Years [...] AM EDT documented as of this encounter Plan of Treatment Upcoming Encounters Date Type Department Care Team (Late st Contact Info) Description 11/04/2024 9:00 AM EDT Nurse Only [facility] [address] [place] [phone] 11/04/2024 10:45 AM EDT Office Visit [facility] [address] [place] [phone] Name, MD Morales [address] [place] [address] documented as of this encounter Procedures Procedure Name Priority Date/Time Associated Diagnosis Comments MR SHOULDER WO CONTRAST RIGHT Routine 09/11/2024 2:40 PM EST documented in this encounter Results * MR Shoulder w/o Contrast Right (09/11/2024 2:40 PM EST) Anatomical Region Laterality Modality Upper Extremities, Shoulder Right Magn etic Resonance 09/11/2024 2:40 PM EST Narrative 09/11/2024 2:42 PM EST ? [facility] ?[address] ?[place] [address] ? Magnetic Resonance Report ? Signed ? Patient: Traci Dahl ?MR#: [id number] ?? [id number] ? : 1975 ?Acct:[id number] ? Age/Sex: 49 / F ?ADM Date: 03/03/25 ? Loc: HO.MRI ? Attending Dr: Best Sierra MD ? Ordering Physician: Best Sierra MD ?? Date of Service: 09/09/24 ?? Procedure(s): MR shoulder RT wo con ?? Accession Number(s): [id number] ? cc: Name,Morales RAMSEY; Best Sierra MD [...] by Skyla Childress MD in OV> ? 09/11/241441 ? DD/ ? TD/TT: 09/11/24 1440 ? Recorder [employer] Prospecting: ? Procedure Note Donotuseinterpreter, Image - 09/11/2024 [place] [address] Magnetic Resonance Report Signed Patient: Traci DahlMR#: [id number] : 1975Acct:[id number] Age/Sex: 49 / FADM Date: 09/09/24 Loc: HO.MRI Attending Dr: Best Sierra MD Ordering Physician: Best Sierra MD Date of Service: 09/09/24 Procedure(s): MR shoulder RT wo con Accession Number(s): [id number] cc: Name,Morales RAMSEY; Best Sierra MD CLINICAL HISTORY: M25.311 - [...] 09/11/24 1442 DD/ 1440 TD/TT: 09/11/24 1440 Recorder [employer] Prospecting: [facility] External Provider IMG MRI PROCEDURES Edited Result - Final documented in this encounter Visit Diagnoses Not on filedocumented in this encounter Additional Health Concerns Assessment Noted Time PHQ-9 Depression Total Score: 14 024 12:49 PM EST documented as of this encounter Care Teams Rack Puncher Relationship Specialty Start Date End Date Name, MD Morales [address] [place] [address] PCP - General Family Medicine 07/01/21 documented as of this encounter
--- OUTSIDE RECORDS SUMMARY | 2024-09-17 09:31 | XMS_ITS | Patient Health Record ---
Author Organization [facility] Address [address] [place] [address] Care Team Providers Care Peeled Potato Inspector Name Role Phone Linda Lopez Primary Care Provider Jamarcus Anderson [phone] Allergies Allergen (clinical drug ingredient) Drug/Non Drug Allergy documented on EMR Reaction Allergy Type Onset Date Status PredniSONE Unknown Drug Allergy Active naproxen Naproxen Unknown Drug Allergy Active Motrin Unknown Drug Allergy Active Results Component Value Reference Range Notes Pathology Reviewed date:04/03/2024 08:25:28 AM Interpretation: Performing Lab:[facility], [address] [place] [address] Notes/Report: Name: Gretchen Holm Age/Sex: 48/F : 1975 Unit#: [id number] Attend Dr: Paolo Olivas MD Re03/17/24 Status : DIS IN Location: [facility] 450-1 Disch: 03/23/24 SPEC : [id number] RECD : 03/25/24 STATUS: CHELSEA MANCINI NUM: [id number] GRANT: 03/22/24-[address] [facility] [address]: Kameron Olivo MD ENTERED: 03/25/24 [...] examinat ion, 3 pieces in cassette A. [facility] Special studies orde red and performed: Immunostain for H. pylori on A1. CONTINUED ON NEXT PAGE Name: Gretchen Holm Age/Sex: 48/F : 1975 Unit#: [id number] Attend Dr: Paolo Olivas MD Re03/17/24 Status : DIS IN Location: [facility] 450-1 Disch: 03/23/24 SPEC : [id number] RECD : 03/25/24 STATUS: CHELSEA MANCINI NUM: [id number] GRANT: 03/22/24-[address] [facility] [address]: Kameron Olivo MD ENTERED: 03/25/24- 15 SP TYPE: Surgical OTHR DR: Paolo Olivas MD Name,Morales RAMSEY ORDERED: HE Stain/3, Gross Micro L4, IHC, H. pylori Copies To: Kameron Olivo MD [facility] [address] [place] [address] Paolo Olivas MD [address] [place] [address] Name,Morales RAMSEY [address] [place] [address] [phone] Signed (si gnature on file) Priti Ellis 03/26/24 1035 END OF REPORT Reason For Referral Referring Provider First Name Morales Referring Provider Last Name Name Referring Provider Speciality Internal M edicine Referred Organization [facility] Referred Provider Jamarcus Banda Referred Address [address] [place] [address],[place], [place],[address], Referred Provider Specialty Gastroentero logy Referral Priority Routine Medications Medication SIG (Take, Route, Frequency, Duration) Notes Start Date End Date Status Albuterol Active Omeprazole 20 MG 1 capsule Orally Onc e a day Active Pvjtfvuyoj-FWON-Dinkbtvc 50-325-40 MG TAKE ONE TABLET BY MOUTH [...] Problem Status W/U Status Risk Notes Problem 13985867 Heartburn (R12) Active confirmed Problem 999090558 Gastroesophageal reflux disease, esophagitis presence not specified (K21.9) Active confirmed Problem Esophageal stricture (17946509) Esophageal stricture (K22.2) Active confirmed Problem Diverticular disease of colon (263258007) Diverticulosis large intestine w/o perforation or abscess w/o bleeding (K57.30) Active confirmed Encounters Encounter Location Date Provider Diagnosis [facility] [address] [place] [address] 04/03/2024 Jamarcus Banda [facility] [address] [place] [address] 08/05/2024 Jamarcus Banda Plan Of Treatment Pending Test Test Name Order Date GI BIOPSY 01/03/2018 Future Test Test Name Order Date UPPER GI ENDOSCOPY 08/22/2017 Next Appt Details Provider Name:Jamarcus Banda , 12/05/2024 11:00:00 AM, [address] [facility], [address], [place], [address], Insurance Providers Payer Name Payer Address Payer Phone Subscriber Number Group Number Insured Name Patient Relationship to Insured Coverage Start Date Coverage End Date MEDICAID OF [employer] [address] [place] [address] [id number] CHUCHO HOLM Self - patient is the insured Medical (General) History Medical History History ICD Code Denies [place],CVA,renal disease Hypertension NIDDM Asthma GERD--E[place] in 2009 in [place]--she describes gastritis with probable H.pylori and a hiatal hernia--describes being treated with antibiotics Sleep apnea--uses CPAP Mild diverticulitis on CT scan in 7 Surgical History Surgery Date(Month/Year) Tubal ligation 1997 Cholecystectomy 1997
--- OUTSIDE RECORDS SUMMARY | 2024-09-17 09:31 | XMS_ITS ---
Author Organization [facility] Address [address] [place] [address] Care Team Providers Care Sales Representative Printing Name Role Phone Linda Lopez Primary Care Provider UnavailJamarcus Bermeo [phone] REASON FOR VISIT pathology Encounters Encounter Location Date Provider Diagnosis [facility] [address] [place] [address] 04/03/2024 Jamarcus Banda Plan Of Treatment Next Appt Details Provider Name:Jamarcus Banda , 12/05/2024 11:00:00 AM, [address], [address], [place], [address], Progress Notes * CHUCHO HOLMDOB:[birth year] (48 yo F)Acc No.[id number]:04/03/2024 Patient:?CHUCHO HOLM :1975???Age:48 Y???Sex:Female Address:[address] [place] [address] [address], [place], [address] * true * Date:? Generated for Printi francisco j/Cadence/eTransmitting on:?09/17/2024 09:31 AM EDT
--- OUTSIDE RECORDS SUMMARY | 2024-09-17 09:31 | XMS_ITS | Clinical Summary ---
Author Organization [facility] [address] Address [address] [place] [address] Phone Care Team Providers Care Mechanical Ordnance Assembler Name Role Phone Unavailable Primary Care [...] Vaccine (2 - 49 years) Aged Out 08/01/2016 No longer eligible based on patient's age [...] ag/ab, w/reflexes (Q) (01/29/2024 10:55 AM EDT) [facility] HIV Ag/Ab, 4th Generation NON-REACT KIERAN NON-REACT [...] ?? For additional information please refer to http://education.[employer].Bit9/faq/IAW273 (This link is being provided for informational/ educational purposes only.) The performance of this assay has not been clinically validated in patients less than 2 years old. Blood 01/29/2024 10:5 5 AM EDT 01/29/2024 10:56 AM EDT Narrative Resulting Agency Comment Performing Lab: ?Site ID: [id number] ?Name: [employer] ?Address: [address] [place] [phone] ?Director: Guilherme Quinteros M.D. Rachael JANE LAB BLOOD ORDERABLES F inal Result Performing Organization Address [facility] Co de Phone Number [facility] [address] [place] [address] * Hepatitis C Ab with reflex to HCV PCR (01/29/2024 10:55 AM EDT) Pathologist [facility] Hepatitis C Ab NON-REACT KIERAN NON-REACT KIERAN [facility] Comment: HCV antibody was non-reactive. There is no laboratory evidence of HCV infection. In most cases, no further action is required. However, if recent HCV exposure is suspected, a test for HCV RNA (test code 98887) is suggested. For additional information please refer to http://education.[employer]/faq/BZT94u4 (This link is being provided for informational/ educational purposes only.) 01/29/2024 10:5 5 AM EDT 01/29/2024 10:56 AM EDT Narrative Resulting Agency Comment Performing Lab: ?Site ID: [id number] ?Name: [employer] ?Address: [address] [place] [phone] ?Director: Guilherme Quinteros M.D. Rachael JANE LAB BLOOD ORDERABLES F inal Result Performing Organization Address [facility] de Phone Number [facility] [address] [place] [address] * (ABNORMAL) Lipid panel with reflex to direct LDL (Q) (01/29/2024 10:51 AM EDT) Pathologist [facility] Cholesterol, Total 203(H) <200 mg/dL [facility] [...] LDL-C. Misael SS et al. BELLA. 2013;310(19): 5559-7075 (http://education.[employer]/faq/SDV008) Chol/HDL Ratio 3.6 <5.0 (calc) [facility] Non-HDL Cholesterol 146(H) <130 mg/dL (calc) [facility] Comment: For patients with diabetes plus 1 major ASCVD risk factor, treating to a non-HDL-C goal of <100 mg/dL (LDL-C of <70 mg/dL) is considered a therapeutic option. 01/29/2024 10:5 1 AM EDT 01/29/2024 10:52 AM EDT Narrative Resulting Agency Comment Performing Lab: ?Site ID: [id number] ?Name: [facility] [facility] ?Address: [address] [place] [phone] ?Director: Guilherme Quinteros M.D. Rachael JANE LAB BLOOD ORDERABLES F inal Result [facility] [address] [place] [address] * (ABNORMAL) Comprehensive metabolic panel (01/29/2024 10:51 AM EDT) [facility] Glucose 79 65 - 99 mg/dL [facility] [...] Comment Performing Lab: ?Site ID: [id number] ?Name: [facility] ?Address: [address] [place] [phone] ?Director: Guilherme Quinteros M.D. Rachael JANE LAB BLOOD ORDERABLES F inal Result [facility] [address] [place] [address] from Last 3 Months or Most Recently Relevant to Health Maintenance Insurance [place] Member Subscriber Plan / Payer (Ef fective 2024-) Name:Traci Dahl Relation to Subscriber:Self Name:Marco Ortega, Traci Payer ID:[id number] Group ID:Not on file Type:Not on file Address: [address] [place] [id number]
--- OUTSIDE RECORDS SUMMARY | 2024-09-17 09:31 | XMS_ITS | Encounter Summary ---
Author Organization [employer] Address [address] [facility] 7t [place] [address] Care Team Providers Care Shopper Insights Manager Name Role Phone Name, Morales RAMSEY Primary Care Provider [phone] Reason for Referral * Consultation (Routine) - Closed Specialty Diagnoses / Procedures Referred By Rajani soriano Referred To Contact Orthopaedic Surgery Diagnoses Left elbow pain Finger pain, right Denny Washington MD [address] [place] [address] Phone: tel: fax: Best Sierra MD [address] [place] [address] [address] [place] [address] Phone: tel: Referral ID Status Reason Start Date Expiration Date V isits Requested Visits Authorized [id number] Closed Specialty Services Required 09/10/2024 09/10/2025 6 6 Reason for Visit * Reason Comments Arm Pain Left sided arm pain Finger Pain Pinky finger Encounter Details Date Type Department Care Team (Late st Contact Info) Description 09/10/2024 9:00 AM EST Office Visit [facility] [address] [place] [address] Denny Washington MD [address] [place] [address] Left elbow pain (Primary Dx); Elbow injury, left, initial encounter; Finger pain, right Social History Tobacco Use [...] 10:15 AM EDT documented in this encounter Progress Notes * Denny Washington MD - 09/10/2024 9:00 AM EST Subjective Patient ID: Traci Ortega is a 49 y.o. female. 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 HPI 1 month ago Traci was carrying a heavy grocery bag, and developed pain in left elbow extensor surface that is constant, worse when carry anything or with ROM of elbow. Tylenol, lidocaine patches, topical gel ?name doesn't help. doesn't help. Avoids NSAIDS because of H/o GI bleed. States that she had a left injury age 12 yo with intermittent left elbow pain since. Also has atraumatic pain in all joints of right small finger. Right-handed. Lives with mother and . LMP=06/2024. States starting menopause. Never smoked. 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 Patient Active Problem List Diagnosis Chronic low back pain Dysmenorrhea Esophageal dysphagia Hypertensive disorder Lower esophageal ring Morbid obesity (CMS/HCC) Pain in pelvis Prediabetes Umbilical hernia S/P laparoscopic sleeve gastrectomy Moderate depressive disorder Severe anxiety The following portions of the chart were reviewed this encounter and updated as appropriate: Tobacco Allergies Meds Problems Med Hx Surg Hx Fam Hx Review of Systems Constitutional: Negative for fever. Respiratory: Negative for shortness of breath. Cardiovascular: Negative for chest pain. Gastrointestinal: Negative for abdominal pain. Musculoskeletal: Positive for arthralgias. Skin: Negative for rash. Neurological: Negative for headaches. Objective Physical Exam Cardiovascular: Pulses: Radial pulses are 2+ on the left side. Musculoskeletal: Comments: Left elbow: Full range of motion with pain. No swelling, erythema, or tenderness. Exam of right small finger reveals pain in all joints on range of motion. No swelling, erythema. Procedures Assessment/Plan Diagnoses and all orders for this visit: Left elbow pain Left arm sling applied for comfort. Given Ayush bandage to use at home for comfort. X-rays ordered. Referred to orthopedic surgery. - XR Elbow 3+ Views Left; Future Elbow injury, left, initial encounter As above Finger pain, right X-rays ordered. Referred to orthopedic surgery. - XR Fingers 2+ Views Right; Future documented in this encounter Plan of Treatment Upcoming Encounters Date Type Department Care Team (Late st Contact Info) Description 11/04/2024 9:00 AM EDT Nurse Only [facility] [place] [address] 11/04/2024 10:45 AM EDT Office Visit [facility] [place] [address] Name, MD Morales [facility] [place] [address] Scheduled Referrals Name Type Priority Associated Diagnoses [...] AM EST Narrative 09/10/2024 10:05 AM EST ?[facility] ?[address] ?[place] [address] ?XRay Report ? Signed ? Patient: Traci aDhl ?MR#: [id number] ?? [id number] ? : 1975 ?Acct:[id number] ? Age/Sex: 49 / F ?ADM Date: 03/04/25 ? Loc: HO.HHCX ? Attending Dr: Denny Washington MD ? Ordering Physician: DENNY WASHINGTON MD ?? Date of Service: 09/10/24 ?? Procedure(s): XR finger RT min 2V ?? Accession Number(s): [id number] ? cc: DENNY WASHINGTON MD ? EXAMINATION: [...] DD/ 0928 ? TD/TT: 09/10/24 0950 ? Chief Substation Operator: ? Procedure Note Donjeremy, Image - 09/10/[address] [address] XRay Report Signed Patient: Traci DahlMR#: [id number] : 1975Acct:[id number] Age/Sex: 49 / FADM Date: 09/10/24 Loc: HO.HHCX Attending Dr: Denny Washington MD Ordering Physician: DENNY WASHINGTON MD Date of Service: 09/10/24 Procedure(s): XR finger RT min 2V Accession Number(s): [id number] cc: DENNY WASHINGTON MD EXAMINATION: XR FINGER, [...] Ronald Bell MD 09/10/2024 10:02 AM EST RP Dictated By: Ronald Chisholm MD Signed By: <Electronically signed by Ronald Loo MDin OV> 09/10/24 1002 DD/ 0928 TD/TT: 09/10/24 0950 Chief Substation Operator: us Denny Washington MD IMG XR PROCEDURES Final Result * XR Elbow 3+ Views Left (09/10/2024 9:28 AM EST) Anatomical Region Laterality Modality Upper Extremities, Elbow Left Radiogr aphic Imaging 09/10/2024 9:28 AM EST Narrative 09/10/2024 10:05 AM EST ?[facility] ?[address] ?[place] [address] ?XRay Report ? Signed ? Patient: Traci Dahl ?MR#: [id number] ?? [id number] ? : 1975 ?Acct:[id number] ? Age/Sex: 49 / F ?ADM Date: 09/10/24 ? Loc: HO.HHCX ? Attending Dr: Denny Washington MD ? Ordering Physician: DENNY WASHINGTON MD ?? Date of Service: 09/10/24 ?? Procedure(s): XR elbow LT min 3V ?? Accession Number(s): [id number] ? cc: DENNY WSAHINGTON MD ? EXAMINATION: ?? XR ELBOW, LEFT [...] ? 09/10/24 1003 ? DD/ ? TD/TT: 09/10/24 0950 ? Chief Substation Operator: ? Procedure Note Donotvincentter, Image - 09/10/[address] [address] XRay Report Signed Patient: Traci DahlMR#: [id number] : 1975Acct:[id number] Age/Sex: 49 / FADM Date: 09/10/24 Loc: HO.HHCX Attending Dr: Denny Washington MD Ordering Physician: DENNY WASHINGTON MD Date of Service: 09/10/24 Procedure(s): XR elbow LT min 3V Accession Number(s): [id number] cc: DENNY WASHINGTON MD EXAMINATION: XR ELBOW, [...] 09/10/24 1003 DD/ 0928 TD/TT: 09/10/24 0950 Chief Substation Operator: Denny Washington MD IMG XR PROCEDURES Final Result documented in this encounter Visit Diagnoses Diagnosis Left elbow pain- Primary Pain in joint, upper arm Elbow injury, left, initial encounter Finger pain, right Pain in soft tissues of limb documented in this encounter Additional Health Concerns Assessment Noted Time PHQ-9 Depression Total Score: 14 11/15/2 024 12:49 PM EST documented as of this encounter Care Teams Shopper Insights Manager Relationship Specialty Start Date End Date Name, MD [address] [place] [address] PCP - General Family Medicine 07/01/21 documented as of this encounter
--- OUTSIDE RECORDS SUMMARY | 2024-09-17 09:31 | XMS_ITS | Clinical Summary ---
Author Organization [facility] Address [address] [place] [address] Care Team Providers Care Semiconductor Processing Technician Name Role Phone Unavailable Primary Care Provider [...]
--- OUTSIDE RECORDS SUMMARY | 2024-09-17 09:31 | XMS_ITS ---
Author Organization [facility] Address [address] [place] [address] Care Team Providers Care Care Team Coordinator Scheduler Name Role Phone Linda Lopez Primary Care Provider UnavailJamarcus Bermeo [phone] Encounters Encounter Location Date Provider Diagnosis [facility] [address] [place] [address] 08/05/2024 Jamarcus Banda Plan Of Treatment Next Appt Details Provider Name:Jamarcus Banda , 12/05/2024 11:00:00 AM, [address], [address], [place], [address], Progress Notes * CHUCHO HOLMDOB:[birth year] (49 yo F)Acc No.[id number]:08/05/2024 Patient:?CHUCHO HOLM :1975???Age:49 Y???Sex:Female Address:[address] , [place], [address] * true * Date:? Generated for Printi francisco j/Cadence/eTransmitting on:?09/17/2024 09:31 AM EDT
--- OUTSIDE RECORDS SUMMARY | 2024-09-17 09:31 | XMS_ITS | Encounter Summary ---
Author Organization [employer] Address [address] [facility] 7t [place] [address] Care Team Providers Care Optometric Coordinator Name Role Phone Name, Morales RAMSEY Primary Care Provider [phone] Reason for Visit * Reason Onset Date Comments Hospital Follow-up 03/29/2024 Encounter Details Date Type Department Care Team ([facility] st Contact Info) Description 03/29/2024 Telephone [facility] [address] [place] [address] Name, MD [address] [place] [address] Hospital Follow-up Social History Tobacco Use Types [...] EDT Please obtain in patient notes from [facility] admitted 03/17/24 and transfer to [facility] inpatient with diwscharge date of 03/28/24. Hospital discharge follow up appt booked for 04/05/24 Monica CHISHOLM 2pm * Telephone Encounter - Senia Levine LPN - 03/29/2024 10:40 AM EDT Triage call returned to patient with [place] [id number]. Patient discharged from [facility] yesterday. Initial admission to [facility] on 03/17/24 transferred to [facility] after 6 days and discharged to home yesterday. is feeling well. Concerned with Insurance coverage.[employer] active as run today. No new symptoms [...] from pt requesting a HDF appt. Hospital: [facility] Date of admission: 03/17/24 Discharge date: 03/28/24 Diagnosed: Abdominal Pain (Albanian Speaker) documented in this encounter Plan of Treatment Upcoming Encounters Date Type Department Care Team (Late st Contact Info) Description 11/04/2024 9:00 AM EDT Nurse Only [facility] [address] [place] [address] 11/04/2024 10:45 AM EDT Office Visit [facility] [address] [place] [address] NameMorales MD [address] [place] [address] documented as of this encounter Visit Diagnoses Not on filedocumented in this encounter Additional Health Concerns Assessment Noted Time PHQ-9 Depression Total Score: 0 12/16/19 23 11:12 AM EDT documented as of this encounter Care Teams Optometric Coordinator Relationship Specialty Start Date End Date NameMorales MD [address] [place] [address] PCP - General Family Medicine 07/01/21 documented as of this encounter
--- OUTSIDE RECORDS SUMMARY | 2024-09-17 09:32 | XMS_ITS ---
Author Organization [facility] Address [address] [place] [address] Care Team Providers Care Human Services Worker Name Role Phone Linda Lopez Primary Care Provider Unavailab Jamarcus Lopez [phone] REASON FOR VISIT Patient presents today for HEMMORHAGE Encounters Encounter Location Date Provider Diagnosis [facility] [address] [place] [address] 08/07/2024 Jamarcus Banda Plan Of Treatment Next Appt Details Provider Name:Jamarcus Banda , 12/05/2024 11:00:00 AM, [address], [address], [place], [address], Progress Notes * CHUCHO HOLMDOB:[birth year] (49 yo F)Acc No.[id number]:08/07/2024 Progress Notes Patient:?CHUCHO HOLM Provider:?Jamarcus Banda MD :1975???Age:49 Y???Sex:Female D ate:08/07/2024 Address:[address] [place] [id number] Pcp:Linda Howell Subjective: * Chief Complaints: * [...] MD Date:? 025 Generated for Kalpana marx/Cadence/Dez on:?09/17/2024 09:31 AM EDT
== END ==
LOC: HO.CARD 08:43
PROVIDERS: PCP Internal Medicine Geriatric Medicine; Visit Provider Internal Medicine Cardiovascular Disease
DX: R07.89 Other chest pain (principal)
CPT/HCPCS: 93017

== ENCOUNTER → 2024-09-17 08:46 | Outpatient (BNV) | payer MEDICAID, SELFPAY | PROVIDERS: PCP Internal Medicine Geriatric Medicine | DX: R07.9 Chest pain, unspecified (principal) | CPT/HCPCS: 93016; 93018 ==

== ENCOUNTER 2024-09-24 11:02 | Emergency (ER) | payer MEDICAID, SELFPAY ==
--- NOTE | ~2024-09-24 | XR_ITS ---
EXAMINATION: XR LUMBAR SPINE 2-3 VIEWS HISTORY: pain COMPARISON: Comparison is made with the prior examination dated 09/28/2015. FINDINGS: AP, lateral, and coned down views of the lumbar spine are submitted. Osseous mineralization is normal. There is moderate rotatory levoscoliosis. The vertebral bodies maintain normal height without evidence of fracture. There is grade I spondylolisthesis of L4 on L5. There is mild degenerative disc disease with disc space narrowing and osteophyte formation. There are surgical clips in the right upper quadrant. There are postsurgical changes involving the stomach. XR/XR lumbar spine 2-3V IMPRESSION: Moderate rotatory levoscoliosis. Grade I spondylolisthesis of L4 on L5. Mild degenerative disc disease. Electronically signed by: Jamarcus Lacy MD 09/24/2024 11:49 AM EDT
[2024-09-24 11:03] VITALS: BP 110/72; PULSE 81; RESP 20; TEMP 36.6; O2SAT 99; BMI 36.7
--- NOTE | 2024-09-24 11:10 | ED.GENADULT ---
HPI - General Adult General Chief complaint: Back Pain/Injury Stated complaint: Lower back pain Time Seen by Provider: 09/24/24 11:20 Source: patient, RN notes reviewed and interventional radiology tech Mode of arrival: ambulatory Limitations: language barrier History of Present Illness ED Provider: Toma Ramires PA-C HPI narrative: This is a 49-year-old Eritrean speaking female, with a past medical history of prediabetes, hypertension, asthma, who presents emergency department with complaints of low back pain x 1 week. Patient denies any recent heavy lifting, falls, or trauma to have caused her to have this pain. Denies history of similar back pain in the past. Pain worsens with movement. Pain starts in her low back and radiates down her right leg. Denies any urinary or bowel retention or incontinence. No saddle anesthesia. No weakness, numbness or tingling. No chest pain, shortness of breath, abdominal pain, nausea, vomiting or diarrhea. She has been taking Tylenol, last dose was 2 days ago, which has provided her with minimal relief. No other complaints or concerns at this time. MD complaint: Back pain Onset (ago): week(s) Location: back Radiation: extremity Related Data Home Medications ?Medication ?Instructions ?Recorded ?Confirmed ferrous sulfate 325 mg (65 mg 325 mg PO DAILY 03/17/24 09/03/24 iron) tablet,delayed release pantoprazole 40 mg tablet,delayed 40 mg PO BID 03/17/24 09/03/24 release albuterol sulfate 90 mcg/actuation 2 puff inhalation Q6H PRN 08/27/24 09/03/24 aerosol inhaler (Ventolin HFA) docusate sodium 100 mg capsule 100 mg PO BID 09/03/24 09/03/24 lidocaine 5 % topical patch patch topical 09/03/24 09/03/24 Previous Rx's ?Medication ?Instructions ?Recorded calcium 315 mg (as 1 tab PO DAILY #60 tabs 12/01/22 citrate)-vitamin D3 5 mcg (200 unit) tablet (Calcium Citrate + D) vitamin A palmitate 3,000 mcg 3,000 mcg PO DAILY #30 caps 05/06/24 (10,000 unit) capsule acetaminophen 500 mg tablet 1,000 mg (2 x 500 mg) PO Q8H PRN 09/24/24 (Tylenol Extra Strength) pain #30 tabs cyclobenzaprine 10 mg tablet 10 mg PO TID #12 tabs 09/24/24 lidocaine 4 % topical patch 1 patch topical DAILY PRN pain #30 09/24/24 (AsperFlex (lidocaine)) ea Allergies Allergy/AdvReac Type Severity Reaction Status Date / Time ibuprofen [From Motrin] Allergy Intermediate Rash Verified 09/03/24 09:54 naproxen [Naprosyn] Allergy Intermediate Rash Verified 09/03/24 09:54 prednisone [PREDNISONE] Allergy Intermediate RASH, Verified 09/03/24 09:54 itching aspirin [ASA] Allergy Rash Verified 09/24/24 11:06 Review of Systems Review of Systems: Yes all other systems are reviewed and are negative Constitutional: Constitutional: Reports as per [facility] Past Medical History Medical History Pre-diabetes GERD (gastroesophageal reflux disease) Hiatal hernia HTN (hypertension) Vitamin deficiency Fatigue Diaphragmatic hernia Dyspareunia in female Heavy menstrual bleeding Vitamin B1 deficiency Prediabetes Obstructive sleep apnea treated with continuous positive airway pressure (CPAP) Asthma Acid reflux Umbilical hernia Surgical History S/P laparoscopic sleeve gastrectomy History of delivery History of endoscopy History of umbilical hernia repair (10/06/17) History of cholecystectomy History of tubal ligation Family History Family History Father No problems noted. Mother Diabetes Hypertension FH: mental illness Maternal Grandmother Hypertension Maternal Uncle Cancer Leukemia Family/Other FH: mental illness Son No problems noted. Son Asthma Glaucoma Son No problems noted. Sister FH: mental illness High cholesterol Brother High cholesterol Social History Social History (Updated 08/29/24 @ 11:33 by LENNY Rdz) Household Members: Spouse and Other Household Members Other:: mother Housing: Apartment Are you a primary career technical supervisor to a significant other at home: Yes Do you presently have visiting nurse or other home services: No Alcohol intake: never Patient Tobacco Use Status: Never used Tobacco Second Hand Smoke Exposure: No Advance Directives: No Advance Directives Information Provided: Yes Do you have a plan to hurt others: No Plan service: No Current occupational status: employed 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, 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 Physical Exam ED Vital Signs: Vital Signs - 24 hr 09/24/24 11:03 09/24/24 13:19 Temperature 97.9 F 97.9 F Pulse Rate 81 81 Respiratory Rate 20 20 Blood Pressure 110/72 110/72 Pulse Oximetry 99 99 Oxygen Delivery Method Room Air Room Air BMI result Body Mass Index 36.7 Const General: cooperative, comfortable and no acute distress Orientation/consciousness: patient oriented x3 Limitations: no limitations HENMT Head: Yes normal to inspection, Yes normocephalic and Yes atraumatic Ears: hearing grossly normal bilaterally General nose exam: Normal external nose present Face and sinus: Yes normal facial exam Mouth: Normal oral and palatal mucosa present, oropharynx normal and moist mucous membranes Throat: Yes posterior oropharynx normal Eyes General: appearance normal, both eyes and all related structures Eyelids: Yes eyelids normal Conjunctivae: conjunctivae normal Sclerae: sclerae normal Pupils: Equal, round and reactive pupils present EOM: EOMs intact bilaterally Neck Neck: Yes normal visual inspection, Yes full ROM and Yes no lymphadenopathy Lymphatic: no lymphadenopathy noted Chest Chest palpation & inspection: normal inspection of the chest Resp Effort & Inspection: normal respiratory effort and able to speak in complete sentences Auscultation: clear to auscultation bilaterally, no crackles, no rales, no rhonchi and no wheezes Cardio Rate: regular rate Rhythm: regular rhythm Heart sounds: S1 normal heart sound present and S2 normal heart sound present GI Inspection: Yes normal to inspection Back/Spine/Pelvis Other: Tenderness palpation along the bilateral musculature. Patient with 5/5 strength in lower extremities. Positive straight leg raise bilaterally. DTRs are 2+. No calf tenderness. No pitting edema. Skin General skin exam: no rashes or lesions noted Trauma: no lacerations or abrasions Wounds: no wounds Neuro General: patient oriented x3 and moves all extremities Cranial nerves: Yes Equal, round and reactive pupils present Extrem General: Yes normal to inspection Right upper extremity: normal to inspection Left upper extremity: normal to inspection Right lower extremity: normal to inspection Left lower extremity: normal to inspection Course Course Course Narrative: This is a rapid medical exam performed by Frida Gong PA-C. The patient is a 49-year-old female with a history of morbid obesity, chronic back pain who presents with right-sided lumbar pain. No preceding injury besides walking on a treadmill for a stress test. Denies red flag signs symptoms for cord compression. Obtaining an x-ray. The patient is stable and can return to the waiting room pending her full medical assessment. Reevaluation(s) Reevaluation #1: Patient re-evaluated, sxs improved, discussed x-ray findings with patient. D/C with conservative tx and educated on return precautions. Also given referral to business account specialist. She understands and agrees with plan. Stable for d/c. Time: 12:50 Medications Administered Discontinued Medications Generic Name Dose Route Start Last Admin Trade Name Johanna PRN Reason Stop Dose Admin Acetaminophen 975 mg 09/24/24 11:48 09/24/24 11:56 Acetaminophen 325 Mg Tablet PO 09/24/24 11:49 975 mg ONCE ONE Administration Lidocaine 1 patch 09/24/24 11:48 09/24/24 11:56 Lidocaine 4 % Patch Adh..Patch TRANSDERMA 09/24/24 11:49 1 patch ONCE ONE Administration Protocol Medical Decision Making Medical Decision Making MDM Narrative: This is a 49-year-old female who presents emergency department with complaints of low back pain which started 1 week ago. Patient had pain in her low back and then she started to walk on a treadmill during his stress test and noticed her pain worsened. She states that she has had constant low back pain since. Denies any heavy lifting, trauma or falls. This patient presents with back pain most consistent with lumbar radiculopathy. Differential diagnoses includes lumbago versus musculoskeletal spasm / strain versus sciatica. No back pain red flags on history or physical. Presentation not consistent with malignancy (lack of history of malignancy, lack of B symptoms), fracture (no trauma, no bony tenderness to palpation), cauda equina (no bowel or urinary incontinence/retention, no saddle anesthesia, no distal weakness), renal colic, pyelonephritis (afebrile, no CVAT, no urinary symptoms). X-rays were ordered prior to my assessment, she was moderate rotary levoscoliosis, grade 1 spondylolisthesis on L4 and L5. With mild degenerative disc disease. Will medicate with Tylenol as she was unable to take NSAIDs due to GI bleed she has had in the past. She also is allergic to prednisone. We will monitor. Differential Diagnosis Differential Diagnoses: The differential diagnosis associated with the presentation includes See above Radiology Impression Discussion of test interpretation with radiology: I have reviewed the radiologist's reading. Radiologist Impression: [id number] [place] [address] XRay Report Signed Patient: Traci Dahl MR#: [id number] : 1975 Acct:[id number] Age/Sex: 49 / F ADM Date: 09/24/24 Loc: .ED Attending Dr: Ordering Physician: Frida Gong Date of Service: 09/24/24 Procedure(s): XR lumbar spine 2-3V Accession Number(s): [id number] cc: Frida Gong; Name,Morales RAMSEY~ EXAMINATION: XR LUMBAR SPINE 2-3 VIEWS HISTORY: pain COMPARISON: Comparison is made with the prior examination dated 09/28/2015. FINDINGS: AP, lateral, and coned down views of the lumbar spine are submitted. Osseous mineralization is normal. There is moderate rotatory levoscoliosis. The vertebral bodies maintain normal height without evidence of fracture. There is grade I spondylolisthesis of L4 on L5. There is mild degenerative disc disease with disc space narrowing and osteophyte formation. There are surgical clips in the right upper quadrant. There are postsurgical changes involving the stomach. XR/XR lumbar spine 2-3V IMPRESSION: Moderate rotatory levoscoliosis. Grade I spondylolisthesis of L4 on L5. Mild degenerative disc disease. Electronically signed by: Jamarcus Lacy MD 09/24/2024 11:49 AM EDT Dictated By: Jamarcus Lacy MD Discharge Plan Discharge Clinical Impression: Acute lumbar radiculopathy, Spondylolisthesis of lumbar region, Levoscoliosis of lumbar spine Patient Disposition: Home, Self-Care Instructions: Lumbar Radiculopathy (ED) Additional Instructions: You were seen in the emergency department due to back pain. Your x-ray shows scoliosis, as well as a slipped disc on L4 and L5. You also have degenerative changes in your back. Please take Tylenol as directed. Please also use lidocaine patches. You need to follow-up with your primary care regarding this visit. I am also refer you to the business account specialist, call to make an appointment. If any new or worsening symptoms occur including but not limited to worsening pain, numbness tingling into your groin, loss of bladder or bowel control, please seek emergent care. I am also prescribing you Flexeril, this is a muscle relaxants, please be advised that this can cause drowsiness, do not drink alcohol or drive while taking this medication. Prescriptions: New acetaminophen [Tylenol Extra Strength] 500 mg tablet 1,000 mg PO Q8H PRN (Reason: pain) Qty: 30 0RF lidocaine [AsperFlex (lidocaine)] 4 % adhesive patch,medicated 1 patch topical DAILY PRN (Reason: pain) Qty: 30 0RF cyclobenzaprine 10 mg tablet 10 mg PO TID Qty: 12 0RF No Action calcium citrate-vitamin D3 [Calcium Citrate + D] 315 mg-5 mcg (200 unit) tablet 1 tab PO DAILY Qty: 60 11RF vitamin A palmitate 3,000 mcg (10,000 unit) capsule 3,000 mcg PO DAILY Qty: 30 6RF pantoprazole 40 mg Tablet,Delayed Release (Dr/Ec) 40 mg PO BID ferrous sulfate 325 mg (65 mg iron) Tablet,Delayed Release (Dr/Ec) 325 mg PO DAILY albuterol sulfate [Ventolin HFA] 90 mcg/actuation HFA aerosol inhaler 2 puff inhalation Q6H PRN docusate sodium 100 mg capsule 100 mg PO BID lidocaine 5 % adhesive patch,medicated topical Referrals: [facility] [Provider Group] Interventions: ED Discharge Assessment Last Done: 09/24/24 13:19 Discharge Date/Time: 09/24/24 13:20 Print Language: Eritrean
[2024-09-24] MEDS: Acetaminophen 325 MG TABLET 975 MG PO (11:56)
[2024-09-24] MEDS: Lidocaine 4 % Patch ADH..PATCH 1 PATCH TRANSDERMA (11:56)
--- NOTE | 2024-09-24 12:00 | PC.NURSE ---
pt medicated per MAR
[2024-09-24 13:19] VITALS: BP 110/72; PULSE 81; RESP 20; TEMP 36.6; O2SAT 99
== END 2024-09-24 13:20 | disposition home or self-care (01) ==
PROVIDERS: Emergency Provider Emergency Medicine Emergency Medical Services; PCP Internal Medicine Geriatric Medicine
DX: M54.16 Radiculopathy, lumbar region (principal); M43.16 Spondylolisthesis, lumbar region; M41.86 Other forms of scoliosis, lumbar region; M54.50 Low back pain, unspecified; I10 Essential (primary) hypertension; Z79.899 Other long term (current) drug therapy
CPT/HCPCS: 72100; 99283

== ENCOUNTER → 2024-09-24 11:09 | Outpatient (BNV) | payer MEDICAID, SELFPAY | PROVIDERS: Emergency Provider Emergency Medicine Emergency Medical Services; PCP Internal Medicine Geriatric Medicine; Visit Provider Radiology Diagnostic Radiology | DX: M41.86 Other forms of scoliosis, lumbar region (principal) | CPT/HCPCS: 72100 ==

== ENCOUNTER → 2024-10-01 17:36 | Outpatient (BNV) | payer MEDICAID, SELFPAY | PROVIDERS: PCP Internal Medicine Geriatric Medicine; Visit Provider Radiology Diagnostic Radiology | DX: M51.27 Other intervertebral disc displacement, lumbosacral region (principal) | CPT/HCPCS: 72148 ==

== ENCOUNTER 2024-10-01 17:50 | Outpatient (REF) | payer MEDICAID, SELFPAY ==
--- NOTE | ~2024-10-01 | MR_ITS ---
CLINICAL HISTORY: slipped disc only ls scoliosis degenerative changes MRI lumbar spine without contrast Comparison: None Findings: Multiple vertebral body lipid rests and/or hemangiomas. No acute bony signal abnormalities are identified. L5-S1 small central posterior annular tear with disc bulge. Facet hypertrophy and osteophytosis also noted. Left neural foraminal narrowing without canal stenosis. L4-5 slight anterolisthesis with facet hypertrophy and disc bulge. Minimal canal stenosis with mild bilateral neural foraminal narrowing. L3-4, L2-3 and L1-2 facet hypertrophy without significant canal stenosis. Alignment is unremarkable with exception of L4-5 levels. Impression: Small central L5-S1 posterior annular tear with central disc bulge Left L5-S1 neural foraminal narrowing L4-5 anterolisthesis and degenerative change with neural foraminal narrowing This document has been electronically signed by: Malik Mitchell MD on 10/01/2024 18:57:42
--- OUTSIDE RECORDS SUMMARY | 2024-10-01 20:08 | XMS_ITS | Clinical Summary ---
Author Organization [facility] [address] Address [address] [place] [phone] Phone Care Team Providers Care Solutions Specialist Name Role Phone Unavailable Primary Care Provider [...] of 2 - PCV) 2039 08/01/2016 RSV Immunization (1 - 1-dose 75+ series) 2049 Pneumococcal Vaccine (2 - 49 years) Discontinued 08/01/2016 HIV screening Completed 01/29/2024 Hepatitis C screening [...] ?? For additional information please refer to http://education.Guided Delivery Systems.Art Loft/faq/ZAH921 (This link is being provided for informational/ educational purposes only.) The performance of this assay has not been clinically validated in patients less than 2 years old. Blood 01/29/2024 10:5 5 AM EDT 01/29/2024 10:56 AM EDT Narrative Resulting Agency Comment Performing Lab: ?Site ID: [id number] ?Name: [facility] ?Address: [address] [place] [phone] ?Director: Guilherme Quinteros M.D. Rachael JANE LAB BLOOD ORDERABLES F inal Result Performing Organization Address [facility] Co de Phone Number [facility] [address] [place] [address] * Hepatitis C Ab with reflex to HCV PCR (01/29/2024 10:55 AM EDT) Pathologist [facility] Hepatitis C Ab NON-REACT KIERAN NON-REACT KIERAN [facility] Comment: HCV antibody was non-reactive. There is no laboratory evidence of HCV infection. In most cases, no further action is required. However, if recent HCV exposure is suspected, a test for HCV RNA (test code 29513) is suggested. For additional information please refer to http://education.Txt4/faq/HDD95o0 (This link is being provided for informational/ educational purposes only.) 01/29/2024 10:5 5 AM EDT 01/29/2024 10:56 AM EDT Narrative Resulting Agency Comment Performing Lab: ?Site ID: [id number] ?Name: [facility] ?Address: [address] [place] [phone] ?Director: Guilherme Quinteros M.D. Rachael Luna PA LAB BLOOD ORDERABLES F inal Result Performing Organization Address [facility] Co de Phone Number [facility] [address] [place] [address] * (ABNORMAL) Lipid panel with reflex to direct LDL (Q) (01/29/2024 10:51 AM EDT) Pathologist [facility] Cholesterol, Total 203(H) <200 mg/dL [facility] [...] LDL-C. Misael ANNE et al. BELLA. 2013;310(19): 0537-4772 (http://education.LawPal.Art Loft/faq/OCX099) Chol/HDL Ratio 3.6 <5.0 (calc) [facility] Non-HDL Cholesterol 146(H) <130 mg/dL (calc) [facility] Comment: For patients with diabetes plus 1 major ASCVD risk factor, treating to a non-HDL-C goal of <100 mg/dL (LDL-C of <70 mg/dL) is considered a therapeutic option. 01/29/2024 10:5 1 AM EDT 01/29/2024 10:52 AM EDT Narrative Resulting Agency Comment Performing Lab: ?Site ID: [id number] ?Name: [facility] ?Address: [address] [place] [phone] ?Director: Guilherme Quinteros M.D. Rachael JANE LAB BLOOD ORDERABLES F inal Result [facility] [address] [place] [address] * (ABNORMAL) Comprehensive metabolic panel (01/29/2024 10:51 AM EDT) Glucose 79 65 - 99 mg/dL [facility] [...] Comment Performing Lab: ?Site ID: [id number] ?Name: [facility] ?Address: [address] [place] [phone] ?Director: Guilherme Quinteros M.D. Rachael JANE LAB BLOOD ORDERABLES F inal Result Performing Organization Address City/State/[facility] Co de Phone Number [facility] [address] [place] [address] from Last 3 Months or Most Recently Relevant to Health Maintenance Insurance [place]
--- OUTSIDE RECORDS SUMMARY | 2024-10-01 20:08 | XMS_ITS ---
Author Organization [facility] Address [address] [place] [address] Care Team Providers Care Water Pump Installer Name Role Phone Linda Lopez Primary Care Provider UnavailJamarcus Bermeo [phone] REASON FOR VISIT pathology Encounters Encounter Location Date Provider Diagnosis [facility] [address] [place] [address] 04/03/2024 Jamarcus Banda Plan Of Treatment Next Appt Details Provider Name:Jamarcus Banda , 12/05/2024 11:00:00 AM, [address], [address], [place], [address], Progress Notes * CHUCHO HOLMDOB:[birth year] (48 yo F)Acc No.[id number]:04/03/2024 Patient:?CHUCHO HOLM :1975???Age:48 Y???Sex:Female Address:[address] [place] [address] [facility], [place], [address] * true * Date:? Generated for Printi francisco j/Cadence/eTransmitting on:?10/01/2024 08:08 PM EDT
--- OUTSIDE RECORDS SUMMARY | 2024-10-01 20:08 | XMS_ITS | Clinical Summary ---
Author Organization [facility] Address [address] [place] [address] Care Team Providers Care Driver/Merchandiser Name Role Phone Unavailable Primary Care Provider [...]
--- OUTSIDE RECORDS SUMMARY | 2024-10-01 20:09 | XMS_ITS ---
Author Organization [facility] Address [address] [place] [address] Care Team Providers Care Is Manager Name Role Phone Linda Lopez Primary Care Provider Unavailab Jamarcus Lopez [phone] REASON FOR VISIT Patient presents today for HEMMORHAGE Encounters Encounter Location Date Provider Diagnosis [facility] [address] [place] [address] 08/07/2024 Jamarcus Banda Plan Of Treatment Next Appt Details Provider Name:Jamarcus Banda , 12/05/2024 11:00:00 AM, [address], [address], [place], [address], Progress Notes * CHUCHO HOLMDOB:[birth year] (49 yo F)Acc No.[id number]:08/07/2024 Progress Notes Patient:?CHUCHO HOLM Provider:?Jamarcus Banda MD :1975???Age:49 Y???Sex:Female D ate:08/07/2024 Address:[address] [id number] Pcp:Linda Howell Subjective: * Chief Complaints: * [...] MD Date:? 025 Generated for Kalpana marx/Cadence/Dez on:?10/01/2024 08:08 PM EDT
--- OUTSIDE RECORDS SUMMARY | 2024-10-01 20:09 | XMS_ITS | Patient Health Record ---
Author Organization [facility] Address [address] [place] [address] Care Team Providers Care Swimming Pool Maintenance Name Role Phone Linda Lopez Primary Care Provider Jamarcus Anderson [phone] Allergies Allergen (clinical drug ingredient) Drug/Non Drug Allergy documented on EMR Reaction Allergy Type Onset Date Status PredniSONE Unknown Drug Allergy Active naproxen Naproxen Unknown Drug Allergy Active Motrin Unknown Drug Allergy Active Results Component Value Reference Range Notes Pathology Reviewed date:04/03/2024 08:25:28 AM Interpretation: Performing Lab:[facility], [address] [place] [address] Notes/Report: Name: Gretchen Holm Age/Sex: 48/F : 1975 Unit#: [id number] Attend Dr: Paolo Olivas MD Re03/17/24 Status : DIS IN Location: [facility] 450-1 Disch: 03/23/24 SPEC : [id number] RECD : 03/25/24 STATUS: CHELSEA MANCINI NUM: [id number] GRANT: 03/22/24-14[address] [facility] [address]: Kameron Olivo MD ENTERED: 03/25/24 [...] examinat ion, 3 pieces in cassette [facility] Special studies orde red and performed: Immunostain for H. pylori on A1. CONTINUED ON NEXT PAGE Name: Gretchen Holm Age/Sex: 48/F : 1975 Unit#: [id number] Attend Dr: Paolo Olivas MD Re03/17/24 Status : DIS IN Location: [facility] 450-1 Disch: 03/23/24 SPEC : [id number] RECD : 03/25/24 STATUS: CHELSEA MANCINI NUM: [id number] GRANT: 03/22/24-[address] [facility] [address]: Kameron Olivo MD ENTERED: 03/25/24- 15 SP TYPE: Surgical OTHR DR: Paolo Olivas MD Name,Morales RAMSEY ORDERED: HE Stain/3, Gross Micro L4, IHC, H. pylori Copies To: Kameron Olivo MD [facility] [address] [place] [id number] Paolo Olivas MD [address] [place] [address] Name,Morales RAMSEY [address] [place] [address] [phone] Signed (si gnature on file) Priti Ellis 03/26/24 1035 END OF REPORT Reason For Referral Referring Provider First Name Morales Referring Provider Last Name Name Referring Provider Speciality Internal M edicine Referred Organization [facility] Referred Provider Jamarcus Banda Referred Address [address] [place] [address],[place], [place],[address], Referred Provider Specialty Gastroentero logy Referral Priority Routine Medications Medication SIG (Take, Route, Frequency, Duration) Notes Start Date End Date Status Albuterol Active Omeprazole 20 MG 1 capsule Orally Onc e a day Active Ytxsfqjste-UQAG-Jaqjbedw 50-325-40 MG TAKE ONE TABLET BY MOUTH [...] Problem Status W/U Status Risk Notes Problem 23651711 Heartburn (R12) Active confirmed Problem 443490731 Gastroesophageal reflux disease, esophagitis presence not specified (K21.9) Active confirmed Problem Esophageal stricture (35005314) Esophageal stricture (K22.2) Active confirmed Problem Diverticular disease of colon (203633915) Diverticulosis large intestine w/o perforation or abscess w/o bleeding (K57.30) Active confirmed Encounters Encounter Location Date Provider Diagnosis [facility] [address] [place] [address] 04/03/2024 Jamarcus Banda [facility] [address] [place] [address] 08/05/2024 Jamarcus Banda Plan Of Treatment Pending Test Test Name Order Date GI BIOPSY 01/03/2018 Future Test Test Name Order Date UPPER GI ENDOSCOPY 08/22/2017 Next Appt Details Provider Name:Jamarcus Banda , 12/05/2024 11:00:00 AM, [address] [facility], [address], [place], [address], Insurance Providers Payer Name Payer Address Payer Phone Subscriber Number Group Number Insured Name Patient Relationship to Insured Coverage Start Date Coverage End Date MEDICAID OF [employer] [address] [place] [address] [id number] CHUCHO HOLM Self - patient is the insured Medical (General) History Medical History History ICD Code Denies [place],CVA,renal disease Hypertension NIDDM Asthma GERD--EGD in 2009 [place]--she describes gastritis with probable H.pylori and a hiatal hernia--describes being treated with antibiotics Sleep apnea--uses CPAP Mild diverticulitis on CT scan in 7 Surgical History Surgery Date(Month/Year) Tubal ligation 1997 Cholecystectomy 1997
--- OUTSIDE RECORDS SUMMARY | 2024-10-01 20:09 | XMS_ITS ---
Author Organization [facility] Address [address] [place] [address] Care Team Providers Care Branch Retail Executive Name Role Phone Linda Lopez Primary Care Provider UnavailJamarcus Bermeo [phone] Encounters Encounter Location Date Provider Diagnosis [facility] [address] [place] [address] 08/05/2024 Jamarcus Banda Plan Of Treatment Next Appt Details Provider Name:Jamarcus Banda , 12/05/2024 11:00:00 AM, [address], [address], [place], [address], Progress Notes * CHUCHO HOLMDOB:[birth year] (49 yo F)Acc No.[id number]:08/05/2024 Patient:?CHUCHO HOLM :1975???Age:49 Y???Sex:Female Address:[address] , [place], [address] * true * Date:? Generated for Printi francisco j/Cadence/eTransmitting on:?10/01/2024 08:08 PM EDT
== END 2024-10-01 17:51 | disposition home or self-care (01) ==
LOC: HO.MRI 17:50
PROVIDERS: PCP Internal Medicine Geriatric Medicine; Visit Provider Nurse Practitioner
DX: M54.16 Radiculopathy, lumbar region (principal)
CPT/HCPCS: 72148

== ENCOUNTER 2024-10-02 08:51 | Outpatient (AMB) | payer MEDICAID, SELFPAY ==
--- NOTE | 2024-10-02 09:25 | MHC.OFFVIS ---
Vital Signs 10/02/24 09:26 Height 5 ft 4 in Weight 213 lb BMI 36.6 Intake Visit Reasons: OV- Right shoulder MRI review Intake Note: Traci is a 49 year old female who presents with complaints of progressively worsening right shoulder pain and stiffness. She describes her pain as sharp and severe in nature. Most of the pain is along the superior and lateral aspects of her shoulder. Her symptoms have gotten worse over the last year in spite of continued non operative treatments. She has done physical therapy exercises which aggravated her pain. She has failed the last 6 weeks of conservative treatment. She has tried Tylenol and anti-inflammatory medicines which gave her minimal relief she reports difficulty lifting her right hand above shoulder height. Manager Of Business Operations Required: Yes Manager Of Business Operations Language: Slip Cover Maker Services: Manager Of Business Operations Present Manager Of Business Operations Name: SebastianLENNY/VINCE Allergies ibuprofen [From Motrin] Allergy (Intermediate, Verified 10/02/24 09:26) Rash naproxen [Naprosyn] Allergy (Intermediate, Verified 10/02/24 09:26) Rash prednisone [PREDNISONE] Allergy (Intermediate, Verified 10/02/24 09:26) RASH, itching aspirin [ASA] Allergy (Verified 10/02/24 09:26) Rash Medication List - Last Reconciled 10/02/24 by Best Sierra MD acetaminophen (Tylenol Extra Strength) 1,000 mg (2 x 500 mg) PO Q8H PRN albuterol sulfate 90 mcg/actuation (Ventolin HFA) 2 puffs inhalation Q6H PRN calcium citrate-vitamin D3 315 mg-5 mcg (200 unit) (Calcium Citrate + D) 1 tab PO DAILY cyclobenzaprine 10 mg PO TID docusate sodium 100 mg PO BID ferrous sulfate 325 mg PO DAILY lidocaine 4% (AsperFlex (lidocaine)) 1 patch topical DAILY PRN lidocaine 5% patches topical pantoprazole 40 mg PO BID vitamin A palmitate 3,000 mcg PO DAILY PFSH Medical History Pre-diabetes GERD (gastroesophageal reflux disease) Hiatal hernia HTN (hypertension) Vitamin deficiency Fatigue Diaphragmatic hernia Dyspareunia in female Heavy menstrual bleeding Vitamin B1 deficiency Prediabetes Obstructive sleep apnea treated with continuous positive airway pressure (CPAP) Asthma Acid reflux Umbilical hernia Surgical History S/P laparoscopic sleeve gastrectomy History of delivery History of endoscopy History of umbilical hernia repair (10/06/17) History of cholecystectomy History of tubal ligation Family History Father No problems noted. Mother Diabetes Hypertension FH: mental illness Maternal Grandmother Hypertension Maternal Uncle Cancer Leukemia Family/Other FH: mental illness Son No problems noted. Son Asthma Glaucoma Son No problems noted. 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 Physical Exam Vital Signs: BMI result Body Mass Index 36.6 Const Other: Well-nourished well-developed very friendly female awake alert and oriented x3 in no acute distress Extrem Other: Bilateral upper extremity examination shows good capillary refill, no skin lesions noted, normal sensation light touch Right shoulder examination shows decreased active and passive range motion when compared to her left shoulder, tenderness over her acromioclavicular joint, positive impingement signs, 4+ out of 5 strength with supraspinatus testing, no instability Results Reviewed Results Reviewed: MRI of the patient's right shoulder show severe acromioclavicular joint narrowing, a type 2 acromion, signal change within the supraspinatus tendon most likely due to adhesive capsulitis Assessment & Plan Assessment & Plan (1) Impingement of right shoulder: Code(s): M25.811 - Other specified joint disorders, right shoulder Category: Medical Plan Ms. Marco Ortega presents with progressively worsening right shoulder pain and stiffness due to impingement syndrome, acromioclavicular joint arthritis and adhesive capsulitis. I had a lengthy discussion with the patient regarding the treatment options. At this point the patient appears to be failing continued non operative treatments. She is considering undergoing surgery later this year. She will contact my office to pick a surgery date if she chooses to do so. Surgery will most likely involve right shoulder diagnostic arthroscopy with distal clavicle excision, acromioplasty, capsular release and manipulation under anesthesia. She will continue with her [id number] exercises in the meantime. Feel free to call me at any time should questions regarding her orthopedic management arise. I spent 22 minutes in reviewing the patient's records and imaging studies, seeing the patient and documenting in the medical record. Coding Level of Care Code Est Pt Level 3 (93980) Complex EM visit Add On G2211 Diagnoses Impingement of right shoulder M25.811
[2024-10-02 09:26] VITALS: BMI 36.6
== END 2024-10-02 09:42 | disposition home or self-care (01) ==
LOC: HO.HOS 08:52
PROVIDERS: PCP Internal Medicine Geriatric Medicine; Visit Provider Orthopaedic Surgery
DX: M25.811 Other specified joint disorders, right shoulder (principal); M75.41 Impingement syndrome of right shoulder
CPT/HCPCS: 99213

== ENCOUNTER → 2024-10-02 08:51 | Outpatient (BNVA) | payer MEDICAID, SELFPAY | PROVIDERS: PCP Internal Medicine Geriatric Medicine; Visit Provider Orthopaedic Surgery | DX: M25.811 Other specified joint disorders, right shoulder (principal) | CPT/HCPCS: 99212 ==

== ENCOUNTER 2024-10-11 08:27 | Outpatient (AMB) | payer MEDICAID, SELFPAY ==
--- NOTE | 2024-10-11 08:33 | A.OFFVIS_ITS ---
Vital Signs 10/11/24 08:35 Height 5 ft 4 in Weight 220 lb BMI 37.8 BP 123/71 Blood Pressure Location Rt brachial Position Sitting Respiration 16 Pulse 67 Pulse Source Pulse Oximeter Pulse Oximetry (%) 99 Oxygen Delivery Method Room Air Intake Visit Reasons: Acute Bilateral Low back pain Radiologic Technologist Mammogram Required: Yes Radiologic Technologist Mammogram Services: Radiologic Technologist Mammogram Present Radiologic Technologist Mammogram Name: Charley Mccoy Information Interpreted: non-clinical & clinical Allergies ibuprofen [From Motrin] Allergy (Intermediate, Verified 10/11/24 08:38) Rash naproxen [Naprosyn] Allergy (Intermediate, Verified 10/11/24 08:38) Rash prednisone [PREDNISONE] Allergy (Intermediate, Verified 10/11/24 08:38) RASH, itching aspirin [ASA] Allergy (Verified 10/11/24 08:38) Rash Medication List - Last Reconciled 10/11/24 by Rubi Waite LPN acetaminophen (Tylenol Extra Strength) 1,000 mg (2 x 500 mg) PO Q8H PRN albuterol sulfate 90 mcg/actuation (Ventolin HFA) 2 puffs inhalation Q6H PRN calcium citrate-vitamin D3 315 mg-5 mcg (200 unit) (Calcium Citrate + D) 1 tab PO DAILY cyclobenzaprine 10 mg PO TID docusate sodium 100 mg PO BID ferrous sulfate 325 mg PO DAILY lidocaine 5% patches topical pantoprazole 40 mg PO BID vitamin A palmitate 3,000 mcg PO DAILY HPI Comments Details: The patient is a 49-year-old Tajik speaking female presenting with acute on chronic low back pain radiating to the right leg. The pain has existed for many years with increased intensity one month ago, following a treadmill exercise for a cardiac stress test. The chronic pain is exacerbated by her back conditions, including degenerative disc disease, disc herniation, spondylolisthesis at L4-L5 and scoliosis. In the past, she received an injection, possibly for diagnostic purposes, but it did not alleviate her pain symptoms and minimal relief was less than a week. She reports back injections at [facility]. Patient denies previous spine surgery. She is planning to undergo right shoulder surgery and is undergoing cardiac clearance with recent abnormal cardiac stress test. The pain originates in the lower back and extends to the right buttock and right anterior leg, with episodes of numbness and weakness reported. She has significant tenderness in the right and minimal in the left sacroiliac joint areas with lateral hip tenderness. The patient's MRI revealed a small central L5-S1 posterior annular tear with central disc bulge, left L5-S1 neural foraminal narrowing, L4-5 anterolisthesis and degenerative change with neural foraminal narrowing. Considering her GI bleed history, gastric bypass and allergy to prednisone, managing her pain poses challenges. Patient reports anxiety and depression are well managed with medications, denies seeing Psychiatrist at this time. Oswestry Low Back Pain Disability Score=24 (moderate disability) - Onset and Timing: Began years ago, significant exacerbation last month f ollowing cardiac test on treadmill. - Quality and Character: Chronic, radiating pain. - Primary Location: Lower back. - Areas of Radiation: Right leg, primarily towards the anterior thigh and lateral rao. - Exacerbating Factors: Exercise (e.g., treadmill stress test), climbing stairs, walking, bending forward. - Relieving Factors: Minimal relief with Tylenol and Flexeril; past treatments such as injections were ineffective. - Interference with Activities: Pain severity impacts mobility and daily activities. - Affect: Anxiety and depression exacerbate pain perception. - Analgesia: No current effective medications due to past ineffective treatments and allergies. - Adverse Effects: Allergy to prednisone and history of GI bleeding restricts medication options. - Activities of Daily Living: Mobility is impaired, and weight management is challenging due to anxiety-related eating. Disrupted sleep due to pain. - Aberrant Drug-Related Behaviors: No evidence of medication misuse; constraints predominantly due to allergies and past medical history. [facility] Medical History Pre-diabetes GERD (gastroesophageal reflux disease) Hiatal hernia HTN (hypertension) Vitamin deficiency Fatigue Diaphragmatic hernia Dyspareunia in female Heavy menstrual bleeding Vitamin B1 deficiency Prediabetes Obstructive sleep apnea treated with continuous positive airway pressure (CPAP) Asthma Acid reflux Umbilical hernia Surgical History S/P laparoscopic sleeve gastrectomy History of delivery History of endoscopy History of umbilical hernia repair (10/06/17) History of cholecystectomy History of tubal ligation Family History Father No problems noted. Mother Diabetes Hypertension FH: mental illness Maternal Grandmother Hypertension Maternal Uncle Cancer Leukemia Family/Other FH: mental illness Son No problems noted. Son Asthma Glaucoma Son No problems noted. 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 - Neurologic: Reports numbness and weakness in the right leg. Denies footdrop, instability, bladder or bowel dysfunction or saddle anesthesia. - Cardiovascular: Denies chest pain, but stress test instigated pain. - Gastrointestinal: History of GI bleeding and gastric bypass. - Psychiatric: Reports anxiety, depression. All systems reviewed & are unremarkable except as noted in HPI and below Physical Exam Vital Signs: Last Vital Signs Pulse 67 10/11/24 08:35 Resp 16 10/11/24 08:35 BP 123/71 10/11/24 08:35 Pulse Ox 99 10/11/24 08:35 Oxygen Delivery Method Room Air 10/11/24 08:35 BMI result Body Mass Index 37.8 General: Appears afebrile. Moderate distress due to pain. Alert and oriented. Mood and affect appropriate. Follows and participates in conversation appropriately. Respiratory effort is unlabored. No cough. Able to transition from sit to stand unassisted, increased pain with changing positions from sitting to standing. Ambulates with bilaterally normal heel strike and toe off. General: Yes no CVA tenderness Back/Spine/Pelvis Other: Limited lumbar ROM due to pain. Lumbar flexion and bending forward reproduce moderate to severe pain, axial rotation and extension reproduce mild pain. Demonstrates 5/5 strength of quadriceps bilaterally as well as flexion/dorsiflexion of bilateral feet against resistance. 2+ pedal pulses bilaterally. Straight leg rise with dorsiflexion negative bilaterally. +2 patellar and +1 achilles reflexes bilaterally. Facet loading test positive bilaterally. Florence sign, Willard?s, Gaenslen, Pelvic compression and Stinchfield tests are positive bilaterally, right>left. No groin pain with I/E hip rotations. Valsalva maneuver negative. Back: no CVA tenderness Cervical Spine: cervical ROM normal, cervical muscular tenderness and No Cervical spine tenderness Thoracic/Lumbar Spine: thoracic and lumbar spine normal to inspection, No Thoracic/lumbar spine scar(s), Lasegue's sign negative, straight leg raise negative bilaterally, pain with thoraco-lumbar ROM, paraspinal muscle tenderness on the right greater than left, No thoracic spinal tenderness and lumbar spinal tenderness (L4-S1) Pelvis: buttock tenderness (right>left) bilaterally and no sciatic notch tenderness Sacroiliac joints: bilaterally (right>left) tender to palpation Results Reviewed Results Reviewed: MR lumbar spine wo con 10/01/24 CLINICAL HISTORY: slipped disc only ls scoliosis degenerative changes MRI lumbar spine without contrast Comparison: None Findings: Multiple vertebral body lipid rests and/or hemangiomas. No acute bony signal abnormalities are identified. L5-S1 small central posterior annular tear with disc bulge. Facet hypertrophy and osteophytosis also noted. Left neural foraminal narrowing without canal stenosis. L4-5 slight anterolisthesis with facet hypertrophy and disc bulge. Minimal canal stenosis with mild bilateral neural foraminal narrowing. L3-4, L2-3 and L1-2 facet hypertrophy without significant canal stenosis. Alignment is unremarkable with exception of L4-5 levels. Impression: Small central L5-S1 posterior annular tear with central disc bulge Left L5-S1 neural foraminal narrowing L4-5 anterolisthesis and degenerative change with neural foraminal narrowing. XR LUMBAR SPINE 2-3 VIEWS 09/24/24 HISTORY: pain COMPARISON: Comparison is made with the prior examination dated 09/28/2015. FINDINGS: AP, lateral, and coned down views of the lumbar spine are submitted. Osseous mineralization is normal. There is moderate rotatory levoscoliosis. The vertebral bodies maintain normal height without evidence of fracture. There is grade I spondylolisthesis of L4 on L5. There is mild degenerative disc disease with disc space narrowing and osteophyte formation. There are surgical clips in the right upper quadrant. There are postsurgical changes involving the stomach. IMPRESSION: Moderate rotatory levoscoliosis. Grade I spondylolisthesis of L4 on L5. Mild degenerative disc disease. Assessment & Plan Assessment & Plan (1) Spondylolisthesis of lumbar region: Code(s): M43.16 - Spondylolisthesis, lumbar region Category: Medical (2) Levoscoliosis of lumbar spine: Code(s): M41.86 - Other forms of scoliosis, lumbar region Category: Medical (3) Lumbosacral spondylosis: Code(s): M47.817 - Spondylosis without myelopathy or radiculopathy, lumbosacral region Category: Medical (4) Lumbar radiculopathy: Code(s): M54.16 - Radiculopathy, lumbar region Category: Medical (5) Sacroiliac joint pain: Code(s): M53.3 - Sacrococcygeal disorders, not elsewhere classified Category: Medical (6) Lumbosacral spondylosis: Code(s): M47.817 - Spondylosis without myelopathy or radiculopathy, lumbosacral region Category: Medical (7) Lumbar radiculopathy: Code(s): M54.16 - Radiculopathy, lumbar region Category: Medical (8) Obesity: Code(s): E66.9 - Obesity, unspecified Category: Medical Plan The plan entails flexion and extension x-rays to analyze sacroiliac joints and lumbar spine stability due to slippage at L4-L5, considering the patient's scoliosis, degenerative changes, disc herniation, and sacroiliac joint pain. Given her allergies, we are considering alternative interventions such as radio frequency ablation or stimulation. Diagnostic nerve blocks will be used to evaluate the effectiveness of these procedures. Our approach emphasizes minimal risk due to past allergic reactions and gastrointestinal concerns. Schedule Right Diagnostic Sacroiliac Joint Injection with local anesthesia, oral Ativan and fluoroscopy. Expectations, risks and benefits were reviewed. Patient is aware she will be contacted to schedule this procedure. Short script provided for tramadol for moderate-severe pain only. Side effects and precautions were discussed with patient. Follow-up involves analyzing x-ray results and monitoring her response to diagnostic blocks. Patient was informed and verbally consented to the use of an ambient scribe for clinic note documentation during this visit. Orders: Orders XR lumbar spine 4V min Today M41.86 - Other forms of scoliosis, lumbar region, M43.16 - Spondylolisthesis, lumbar region, M47.817 - Spondylosis without myelopathy or radiculopathy, lumbosacral region, M54.16 - Radiculopathy, lumbar region XR sacroiliac joint min 3V Today M53.3 - Sacrococcygeal disorders, not elsewhere classified Medications: New tramadol 50 mg PO Q8H 10 days PRN 30 tabs 0RF pain (scale score 7-10) M47.817 - Spondylosis without myelopathy or radiculopathy, lumbosacral region, M53.3 - Sacrococcygeal disorders, not elsewhere classified, M54.16 - Radiculopathy, lumbar region Discontinued cyclobenzaprine Discontinued Reason: Doctor's Order 10 mg PO TID 12 tabs 0RF Patient Instructions: I discussed with the patient the possibility of radiofrequency ablation or nerve stimulation after clarifying her sacroiliac joint pain origins, given her contraindication for steroid use. We addressed risks and benefits, detailing prison pain relief without constant medication, using radiofrequency nerve ablation or peripheral nerve stimulation. We agreed on obtaining diagnostic blocks to ascertain the procedure's potential efficacy. I informed the patient of the need for stability xrays and discussed her concern regarding scoliosis and vertebral slippage at L4-L5. Follow-up discussions will involve the results and decisions based on diagnostic block efficacy. - Schedule x-rays for SIJ and spine stability assessment with flexion and extension views. - Avoid movements exacerbating back pain. Continue weight optimization for longer term pain reduction for back and joints. - Diagnostic injection will be explored; monitor pain relief. - No driving post-procedure, if Ativan is administered for procedural anxiety. - Discuss improvement with any treatments tried, and maintain awareness of pain changes or exacerbations. - Follow instructions for home pain management, including heat application insights. Adjust based on comfort levels. - Tramadol - take for moderate to severe pain only. Monitor for any side effects. - Alert for any worsening symptoms or new issues. Coding Level of Care Code New Pt Level 4 (60528) Complex EM visit Add On G2211 Diagnoses Spondylolisthesis of lumbar region M43.16 Levoscoliosis of lumbar spine M41.86 Lumbosacral spondylosis M47.817 Lumbar radiculopathy M54.16 Sacroiliac joint pain M53.3 Obesity E66.9
[2024-10-11 08:35] VITALS: BP 123/71; PULSE 67; RESP 16; O2SAT 99; BMI 37.8
--- OUTSIDE RECORDS SUMMARY | 2024-10-11 08:51 | XMS_ITS ---
Author Organization [facility] Address [address] [place] [address] [address] [place] [address] Care Team Providers Care Milieu Coordinator Name Role Phone Name, Morales RAMSEY Primary Care Provider [phone] CHW Complex Status:Outreach In Progress (Enrolling) Start date:09/25/2024 Enrollment reason:ADT Feed Overview [facility] 09/24 Case Team Name Relationship Phone Mirlande Lopez (Responsible Staff) Continued Care and Services Coordination
--- OUTSIDE RECORDS SUMMARY | 2024-10-11 08:51 | XMS_ITS ---
Author Organization [facility] Address [address] [place] [address] Care Team Providers Care Director Technical Name Role Phone Linda Lopez Primary Care Provider Unavailab Jamarcus Lopez [phone] REASON FOR VISIT Patient presents today for HEMMORHAGE Encounters Encounter Location Date Provider Diagnosis [facility] [address] [place] [address] 08/07/2024 Jamarcus Banda Plan Of Treatment Next Appt Details Provider Name:Jamarcus Banda , 12/05/2024 11:00:00 AM, [address], [address], [place], [address], Progress Notes * CHUCHO HOLMDOB:[birth year] (49 yo F)Acc No.[id number]:08/07/2024 Progress Notes Patient:?CHUCHO HOLM Provider:?Jamarcus Banda MD :1975???Age:49 Y???Sex:Female D ate:08/07/2024 Address:[address] [id number] Pcp:Linda Howell Subjective: * Chief Complaints: * [...] MD Date:? 025 Generated for Kalpana marx/Cadence/Dez on:?10/11/2024 08:51 AM EDT
--- OUTSIDE RECORDS SUMMARY | 2024-10-11 08:51 | XMS_ITS | Clinical Summary ---
Author Organization [facility] Address [address] [place] [address] Care Team Providers Care Drafter Engineering Name Role Phone Unavailable Primary Care Provider [...]
--- OUTSIDE RECORDS SUMMARY | 2024-10-11 08:51 | XMS_ITS ---
Author Organization [facility] [facility] [employer] [facility] Address [address] [place] [address] [address] [place] [address] Care Team Providers Care Cost Report Clerk Name Role Phone Name, Morales RAMSEY Primary Care Provider [phone] Complex Status:Outreach In Progress (Enrolling) Start date:09/25/2024 Enrollment reason:ADT Feed Overview ED- Pt went to [facility] on 09/24. Case Team Name Relationship Phone Yesica Palencia RN Registered Nurse(Responsible S taff) Continued Care and Services Coordination
--- OUTSIDE RECORDS SUMMARY | 2024-10-11 08:51 | XMS_ITS | Encounter Summary ---
Author Organization [facility] Address [address] [place] [address] Care Team Providers Care Ballpoint Pens Assembler Name Role Phone Name, Morales RAMSEY Primary Care Provider [phone] Reason for Visit * Reason Onset Date Comments Hospital Follow-up 03/29/2024 Encounter Details Date Type Department Care Team ([facility] st Contact Info) Description 03/29/2024 Telephone [facility] [address] [place] [address] Name, MD Morales [address] [place] [address] Hospital Follow-up Social History Tobacco Use Types [...] EDT Please obtain [place] [facility] and transfer to [facility] inpatient with diwscharge date of 03/28/24. Hospital discharge follow up appt booked for 04/05/24 Monica CHISHOLM 2pm * Telephone Encounter - Senia Levine LPN - 03/29/2024 10:40 AM EDT Triage call returned to patient with [place] [id number]. Patient discharged from [facility] yesterday. Initial admission to [facility] on 03/17/24 transferred to [facility] after 6 days and discharged to home yesterday. is feeling well. Concerned with Insurance coverage.Nextt active as run today. No new symptoms [...] from pt requesting a HDF appt. Hospital: [facility] Date of admission: 03/17/24 Discharge date: 03/28/24 Diagnosed: Abdominal Pain (Yi Speaker) documented in this encounter Plan of Treatment Upcoming Encounters Date Type Department Care Team (Late st Contact Info) Description 11/04/2024 9:00 AM EDT Nurse Only [address] [address] 11/04/2024 10:45 AM EDT Office Visit [address] [address] Name, MD Morales [address] [place] [id number] documented as of this encounter Visit Diagnoses Not on filedocumented in this encounter Additional Health Concerns Assessment Noted Time PHQ-9 Depression Total Score: 0 12/16/19 23 11:12 AM EDT documented as of this encounter Care Teams Ballpoint Pens Assembler Relationship Specialty Start Date End Date NameMorales MD [address] [place] [phone] PCP - General Family Medicine 07/01/21 documented as of this encounter
--- OUTSIDE RECORDS SUMMARY | 2024-10-11 08:51 | XMS_ITS | Clinical Summary ---
Author Organization [facility] [address] Address [address] [place] [phone] Phone Care Team Providers Care Continuous Process Tanner Rotary Drum Name Role Phone Unavailable Primary Care Provider [...] ?? For additional information please refer to http://education.CompareAway.[facility]/faq/LNL698 (This link is being provided for informational/ educational purposes only.) The performance of this assay has not been clinically validated in patients less than 2 years old. Blood 01/29/2024 10:5 5 AM EDT 01/29/2024 10:56 AM EDT Narrative Resulting Agency Comment Performing Lab: ?Site ID: [id number] ?Name: [facility] ?Address: [address] [place] [phone] ?Director: Guilherme Quinteros M.D. Rachael JANE LAB BLOOD ORDERABLES F inal Result Performing Organization Address [facility] Co de Phone Number [facility] [address] [place] [address] * Hepatitis C Ab with reflex to HCV PCR (01/29/2024 10:55 AM EDT) Pathologist [facility] Hepatitis C Ab NON-REACT KIERAN NON-REACT KIERAN [facility] Comment: HCV antibody was non-reactive. There is no laboratory evidence of HCV infection. In most cases, no further action is required. However, if recent HCV exposure is suspected, a test for HCV RNA (test code 87821) is suggested. For additional information please refer to http://education.Eviti/faq/LFX81g6 (This link is being provided for informational/ educational purposes only.) 01/29/2024 10:5 5 AM EDT 01/29/2024 10:56 AM EDT Narrative Resulting Agency Comment Performing Lab: ?Site ID: [id number] ?Name: [facility] ?Address: [address] [place] [phone] ?Director: Guilherme Quinteros M.D. Rachael Luna PA LAB BLOOD ORDERABLES F inal Result Performing Organization Address [facility] Co de Phone Number [facility] [address] [place] [address] * (ABNORMAL) Lipid panel with reflex to direct LDL (Q) (01/29/2024 10:51 AM EDT) Pathologist [facility] Cholesterol, Total 203(H) <200 mg/dL [facility] [...] LDL-C. Misael ANNE et al. BELLA. 2013;310(19): 0982-1862 (http://education.VB Rags.[facility]/faq/JUM971) Chol/HDL Ratio 3.6 <5.0 (calc) [facility] Non-HDL Cholesterol 146(H) <130 mg/dL (calc) [facility] Comment: For patients with diabetes plus 1 major ASCVD risk factor, treating to a non-HDL-C goal of <100 mg/dL (LDL-C of <70 mg/dL) is considered a therapeutic option. 01/29/2024 10:5 1 AM EDT 01/29/2024 10:52 AM EDT Narrative Resulting Agency Comment Performing Lab: ?Site ID: [id number] ?Name: [facility] ?Address: [address] [place] [phone] ?Director: Guilherme Quinteros M.D. Rachael JANE LAB BLOOD ORDERABLES F inal Result [facility] [address] [place] [address] * (ABNORMAL) Comprehensive metabolic panel (01/29/2024 10:51 [...] Comment Performing Lab: ?Site ID: [id number] ?Name: [facility] ?Address: [address] [place] [phone] ?Director: Guilherme Quinteros M.D. Rachael JNAE LAB BLOOD ORDERABLES F inal Result Performing Organization Address City/State/[facility] Co de Phone Number [facility] [address] [place] [address] from Last 3 Months or Most Recently Relevant to Health Maintenance Insurance [place]
--- OUTSIDE RECORDS SUMMARY | 2024-10-11 08:51 | XMS_ITS ---
Author Organization [facility] Address [address] [place] [address] Care Team Providers Care Commission Clerk Name Role Phone Linda Lopez Primary Care Provider UnavailJamarcus Bermeo [phone] Encounters Encounter Location Date Provider Diagnosis [facility] [address] [place] [address] 08/05/2024 Jamarcus Banda Plan Of Treatment Next Appt Details Provider Name:Jamarcus Banda , 12/05/2024 11:00:00 AM, [address], [address], [place], [phone], Progress Notes * CHUCHO HOLMDOB:[birth year] (49 yo F)Acc No.[id number]:08/05/2024 Patient:?CHUCHO HOLM :1975???Age:49 Y???Sex:Female Address:[address] , [place], [address] * true * Date:? Generated for Printi francisco j/Cadence/eTransmitting on:?10/11/2024 08:51 AM EDT
--- OUTSIDE RECORDS SUMMARY | 2024-10-11 08:51 | XMS_ITS | Clinical Summary ---
Author Organization [employer] Address [address] [place] [address] 7[address] [place] [address] Care Team Providers Care Media/Instructional Designer Name Role Phone Name, Morales RAMSEY Primary Care Provider [phone] Allergies Active Allergy Reactions Criticality Noted Date Comments Dexamethasone Itching Low 01/19/2021 Ibuprofen Rash Low 06/14/2022 Medications * This document contains information received from the source organization and may not represent a complete record from that organization. White Petrolatum-Inspector Boiler al Oil (Wh Petrol-Mineral Oil-Lanolin) 0.1-0.1 % ointment apply 2-4 drops topically to eye PRN dryness Active glucose blood (FREESTYLE LITE) test strip Use to test blood sugar twice daily Active thiamine (Vitamin B-1) 100 MG tablet Take 1 tablet by mouth at bed time. Active TRUEplus Lancets 33G misc Use to test blood sugar twice daily Active Spacer/Aero-Hold ing Chambers (OptiChamber Tasha) miscIndications: Influenza A 1 each every 4 (four) hours if needed (asthma). 1 each Active albuterol (2.5 MG/3ML) 0.083% nebulizer solutionIndicati ons:Influenza A Take 3 mL (2.5 mg) by nebulization every 6 (six) hours if needed for wheezing or shortness of breath. 75 mL 1 Active diphenhydrAMINE (BENADryl) 25 MG capsuleIndicatio ns:Influenza A Take 2 capsules (50 mg) by mouth every 6 (six) hours if needed for itching. May take 1-2 capsules prn rashor itching 40 capsule 022 Active cyclobenzaprine (Flexeril) 10 MG tabletIndication s:Chronic low back pain, unspecified back pain laterality, unspecified whether sciatica present Take 1 tablet (10 mg) by mouth 3 times daily for 20 days. 60 tablet 3 023 Active Calcium Citrate-Vitamin D 315-5 MG-MCG tablet Take 1 tablet by mouth in the morning. 023 Active albuterol (Ventolin HFA) 108 (90 Base) MCG/ACT inhalerIndicatio ns:Asthma, unspecified asthma severity, unspecified whether complicated, unspecified whether persistent Inhale 2 puffs every 6 hours as needed for cough, wheezing, or shortness of breath 18 g 3 024 Active pantoprazole (Protonix) 40 MG EC tablet Take 1 tablet (40 mg) by mouth before breakfast. Do not crush, chew, or split. 90 tablet 3 024 2024 Active FeroSul 325 (65 Fe) MG tabletIndication s:Dysmenorrhea TAKE 1 TABLET BY MOUTH EVERY DAY WITH ORANGE JUICE 90 tablet 3 024 Active docusate sodium (Colace) 100 MG capsule TAKE 1 CAPSULE BY MOUTH TWICE DAILY 180 capsule 2 024 Active Blood Pressure kit 1 each 2 times daily. 1 kit 025 2025 Active lidocaine (Lidoderm) 5 % patchIndications :Lumbar radiculopathy Apply 1 patch topically Once per day. Remove & discard patch within 12 hours or as directed by . 30 patch 2 025 2024 Active acetaminophen (Tylenol) 500 MG tabletIndication s:Lumbar radiculopathy Take 2 tablets (1,000 mg) by mouth every 6 (six) hours if needed for moderate pain or fever. 240 tablet 1 025 2024 Active lidocaine (Lidoderm) 5 % patch Apply 1 patch topically Once per day. Remove & discard patch within 12 hours or as directed by . 30 patch 2 024 2024 Discontinued(R eorder (will not trigger notification to Pharmacy)) acetaminophen (Tylenol) 500 MG tablet Take 2 tablets (1,000 mg) by mouth every 6 (six) hours if needed for moderate pain or fever for up to 25 doses. 50 tablet 024 2024 Discontinued(R eorder (will not trigger notification to Pharmacy)) Active Problems Problem Noted Date Diagnosed Date [...] intervention , Patient to reach out to [facility] team as needed, Patient to engage in OP therapy , and Patient to reach out to [facility] as needed S/P laparoscopic sleeve gastrectomy 08/12/2022 Overview (08/12/2022): [place]iz[place] [facility] Chronic low back pain 06/18/2022 Dysmenorrhea 06/18/2022 Esophageal dysphagia 06/18/2022 Hypertensive disorder 06/18/2022 Lower esophageal ring 06/18/2022 Morbid obesity 06/18/2022 Pain in pelvis 06/18/2022 Umbilical hernia 06/18/2022 Prediabetes 08/23/2021 Encounters Date Type Department Care Team Description 10/02/2024 Telephone [facility] MEDICINE [address] [place] [phone] Morales Ly MD Results 09/27/2024 11:15 AM EDT Office Visit [address] [address] Xi Johnson NP Lumbar radiculopathy (Primary Dx) 09/27/2024 Travel 09/25/2024 Patient Outreach [address] [address] Morales Ly MD 09/25/2024 Patient Outreach [address] [address] Morales Ly MD Care Coordination (C3/CM Outreach) 09/25/[address] [address] Morales Ly MD Nurse Triage; ER Follow-up 09/25/2024 Patient Outreach [address] [address] Morales Ly MD 09/25/2024 Patient Outreach [address] [address] Morales Ly MD Care Coordiantion 09/25/2024 Patient Outreach [facility] [address] [place], [place] [phone] Morales Ly MD Care Coordination (C3CM Chart review) 09/25/2024 Patient Outreach [address] [address] Morales Ly MD 09/24/2024 10:00 AM EDT Office Visit [facility] [address] [place] [phone] Denny Bocanegra MD Acute bilateral low back pain with right-sided sciatica (Primary Dx); Hypertension, unspecified type 09/20/2024 Population Health Risk Score [facility] (C3) Department [address] [place] [phone] Provider, Population Health Generic 09/10/2024 9:00 AM EST Office Visit [facility] [address] [place] [address] Denny Bocanegra MD Left elbow pain (Primary Dx); Elbow injury, left, initial encounter; Finger pain, right 09/09/2024 Orders Only [facility] External Provider, [facility] from Last 3 Months Immunizations Name Administration [...] Date Smoking Tobacco: Never Smokeless Tobacco: Never Tobacco Cessation:Counseling Given: Not [...] Sign Reading Time Taken Comments Blood Pressure 119/63 09/27/2024 10:50 AM EDT Pulse 82 09/27/2024 10:50 AM EDT Temperature 35.9 ??C (96.7 ??F) 09/27/2024 10:50 AM E DT Respiratory Rate 20 09/27/2024 10:50 AM EDT Oxygen Saturation 99% 09/27/2024 10:50 AM EDT Inhaled Oxygen Concentration - - Weight 98.4 kg (217 lb) 09/27/2024 10:50 AM EDT Height 162.6 cm (5' 4 ) 09/27/2024 10:50 AM EDT Body Mass Index 37.25 09/27/2024 10:50 AM EDT Plan of Treatment Upcoming Encounters Date Type Department Care Team ([facility] st Contact Info) Description 11/04/2024 9:00 AM EDT Nurse Only [facility] MEDICINE [address] [place] [address] 11/04/2024 10:45 AM EDT Office Visit [facility] [place] [address] Name, MD Morales [facility] [place] [address] Health Maintenance Due Date Last Done Comments [...] Screening 05/24/2025 05/24/2024, 05/24/20 24 Tobacco Screening 09/27/2025 09/27/2024 Cervical Cancer Screening 07/12/2026 HPV/Cotest 07/12/2026 07/12/2021 [...] Name Priority Date/Time Associated Diagnosis Comments MR LUMBAR SPINE WO CONTRAST Routine 10/01/2024 6:57 PM EDT Lumbar radiculopathy XR LUMBAR SPINE 2-3 VIEWS Routine 09/24/2024 11:20 AM EDT MR SHOULDER WO CONTRAST RIGHT Routine 09/11/2024 2:40 PM EST XR FINGERS 2+ VIEWS RIGHT Routine 09/10/2024 9:28 AM EST Finger pain, right XR ELBOW 3+ VIEWS LEFT Routine 09/10/2024 9:28 AM EST Left elbow pain XR [...] Relevant to Health Maintenance Results * MR Lumbar Spine w/o Contrast (10/01/2024 6:57 PM EDT) Anatomical Region Laterality Modality Spine, L-spine Magnetic Resonan ce 10/01/2024 6:57 PM EDT Narrative 10/01/2024 6:59 PM EDT ? [facility] ?[address] ?[place] [address] ? Magnetic Resonance Report ? Signed ? Patient: Traci Dahl ?MR#: [id number] ?? [id number] ? : 1975 ?Acct:[id number] ? Age/Sex: 49 / F ?ADM Date: 10/01/24 ? Loc: HO.MRI ? Attending Dr: Xi Johnson ? Ordering Physician: Xi Johnson ?? Date of Service: 10/01/24 ?? Procedure(s): MR lumbar spine wo con ?? Accession Number(s): [id number] ? cc: Xi Johnson; NameMorales MD ? CLINICAL HISTORY: slipped disc only ls scoliosis degenerative changes ? MRI lumbar spine without contrast ? Comparison: None ? Findings: ? Multiple vertebral body lipid rests and/or hemangiomas. ?? No acute bony signal abnormalities are identified. ? L5-S1 small central posterior annular tear with disc bulge. ?? Facet hypertrophy and osteophytosis also noted. ?? Left neural foraminal narrowing without canal stenosis. ? L4-5 slight anterolisthesis with facet hypertrophy and disc bulge. ?? Minimal canal stenosis with mild bilateral neural foraminal narrowing. ? L3-4, L2-3 and L1-2 facet hypertrophy without significant canal stenosis. ?? Alignment is unremarkable with exception of L4-5 levels. ? Impression: ? Small central L5-S1 posterior annular tear with central disc bulge ? Left L5-S1 neural foraminal narrowing ? L4-5 anterolisthesis and degenerative change with neural foraminal ?? narrowing ? This document has been electronically signed by: Malik Mitchell MD on ?? 10/01/2024 18:57:42 ? Dictated By: ?Malik Mitchell MD ? Signed By: ?<Electronically signed by Malik Mitchell MD in OV> ? 10/01/24 1859 ? DD/ 56 ? TD/TT: 10/01/241856 ? Coordinate Measuring Machine Programmer: ? Procedure Note Donotuseinterpreter, Image - 10/01/2024 [place] [address] Magnetic Resonance Report Signed Patient: Traci DahlMR#: [id number] : 1975Acct:[id number] Age/Sex: 49 / FADM Date: 10/01/24 Loc: HO.MRI Attending Dr: Xi Johnson Ordering Physician: Xi Johnson Date of Service: 10/01/24 Procedure(s): MR lumbar spine wo con Accession Number(s): [id number] cc: Xi Johnson; Name,Morales RAMSEY CLINICAL HISTORY: slipped disc only ls scoliosis degenerative changes MRI lumbar spine without contrast Comparison: None Findings: Multiple vertebral body lipid rests and/or hemangiomas. No acute bony signal abnormalities are identified. L5-S1 small central posterior annular tear with disc bulge. Facet hypertrophy and osteophytosis also noted. Left neural foraminal narrowing without canal stenosis. L4-5 slight anterolisthesis with facet hypertrophy and disc bulge. Minimal canal stenosis with mild bilateral neural foraminal narrowing. L3-4, L2-3 and L1-2 facet hypertrophy without significant canal stenosis. Alignment is unremarkable with exception of L4-5 levels. Impression: Small central L5-S1 posterior annular tear with central disc bulge Left L5-S1 neural foraminal narrowing L4-5 anterolisthesis and degenerative change with neural foraminal narrowing This document has been electronically signed by: Malik Mitchell MD on 10/01/2024 18:57:42 Dictated By: Malik Mitchell MD Signed By: <Electronically signed by Malik Mitchell MD in OV> 10/01/241858 DD/ 56 TD/TT: 10/01/241856 Coordinate Measuring Machine Programmer: us Xi Singerenoch CHISHOLM IMG MRI PROCEDURES Edited Resul t - Final * XR Lumbar Spine 2-3 Views (09/24/2024 11:20 AM EDT) Anatomical Region Laterality Modality Spine, L-spine Radiographic Kimi ging 09/24/2024 11:2 0 AM EDT Narrative 09/24/2024 11:52 AM EDT ? [facility] ?[address] ?[place] [address] ?XRay Report ? Signed ? Patient: Traci Dahl ?MR#: [id number] ?? [id number] ? : 1975 ?Acct:[id number] ? Age/Sex: 49 / F ?ADM Date: 09/24/24 ? Loc: HO.ED ? Attending Dr: ? Ordering Physician: Frida Gong ?? Date of Service: 09/24/24 ?? Procedure(s): XR lumbar spine 2-3V ?? Accession Number(s): [id number] ? cc: Frida Gong; Name,Morales RAMSEY ? EXAMINATION: ??XR LUMBAR SPINE 2-3 VIEWS ? HISTORY: pain ? COMPARISON: Comparison is made with the prior examination dated ?? 09/28/2015. ? FINDINGS: ??AP, lateral, and coned down views of the lumbar spine are ?? submitted. ??Osseous mineralization is normal. ??There is moderate ?? rotatory levoscoliosis. ??The vertebral bodies maintain normal height ?? without evidence of fracture. ??There is grade I spondylolisthesis of L4 ?? on L5. There is mild degenerative disc disease with disc space ?? narrowing and osteophyte formation. ??There are surgical clips in the ?? right upper quadrant. There are postsurgical changes involving the ?? stomach. ? XR/XR lumbar spine 2-3V ?? IMPRESSION: ?? Moderate rotatory levoscoliosis. Grade I spondylolisthesis of L4 on L5. ?? Mild degenerative disc disease. ? Electronically signed by: ??Jamarcus Lacy MD ??09/24/2024 11:49 AM EDT ?? RP ? Dictated By: ?Jamarcus Lacy MD ? Signed By: ?<Electronically signed by Jamarcus Lacy MD in OV> ?09/24/24 1149 ? DD/ 1120 ? TD/TT: 09/24/24 1129 ? Coordinate Measuring Machine Programmer: ? Procedure Note Donotuseinterpreter, Image - 09/24/[address] [address] XRay Report Signed Patient: Traci DahlMR#: [id number] : 1975Acct:[id number] Age/Sex: 49 / FADM Date: 09/24/24 Loc: HO.ED Attending Dr: Ordering Physician: Frida Gong Date of Service: 09/24/24 Procedure(s): XR lumbar spine 2-3V Accession Number(s): [id number] cc: Frida Gong; Name,Morales RAMSEY EXAMINATION: XR LUMBAR SPINE 2-3 VIEWS HISTORY: pain COMPARISON: Comparison is made with the prior examination dated 09/28/2015. FINDINGS: AP, lateral, and coned down views of the lumbar spine are submitted. Osseous mineralization is normal. There is moderate rotatory levoscoliosis. The vertebral bodies maintain normal height without evidence of fracture. There is grade I spondylolisthesis of L4 on L5. There is mild degenerative disc disease with disc space narrowing and osteophyte formation. There are surgical clips in the right upper quadrant. There are postsurgical changes involving the stomach. XR/XR lumbar spine 2-3V IMPRESSION: Moderate rotatory levoscoliosis. Grade I spondylolisthesis of L4 on L5. Mild degenerative disc disease. Electronically signed by: Jamarcus Lacy MD 09/24/2024 11:49 AM EDT Dictated By: Jamarcus Lacy MD Signed By: <Electronically signed by Jamarcus Lacy MD in OV> 09/24/24 1149 DD/ 1120 TD/TT: 09/24/24 1129 Coordinate Measuring Machine Programmer: us [facility] External Provider IMG XR PROCEDURES Final Result * MR Shoulder w/o Contrast Right (09/11/2024 2:40 PM EST) Anatomical Region Laterality Modality Upper Extremities, Shoulder Right Magn etic Resonance 09/11/2024 2:40 PM EST Narrative 09/11/2024 2:42 PM EST ? [facility] ?[address] ?[place] [address] ? Magnetic Resonance Report ? Signed ? Patient: Traci Dahl ?MR#: [id number] ?? [id number] ? : 1975 ?Acct:[id number] ? Age/Sex: 49 / F ?ADM Date: 09/09/24 ? Loc: HO.MRI ? Attending Dr: Best Sierra MD ? Ordering Physician: Best Sierra MD ?? Date of Service: 09/09/24 ?? Procedure(s): MR shoulder RT wo con ?? Accession Number(s): [id number] ? cc: Name,Morales RAMSEY; Best Sierra MD [...] DD/ 1440 ? TD/TT: 09/11/24 1440 ? Coordinate Measuring Machine Programmer: ? Procedure Note Diana, Image - 09/11/2024 [place] [address] Magnetic Resonance Report Signed Patient: Traci Dahl#: [id number] : 1975Acct:[id number] Age/Sex: 49 / FADM Date: 09/09/24 Loc: HO.MRI Attending Dr: Best Sierra MD Ordering Physician: Best Sierra MD Date of Service: 09/09/24 Procedure(s): MR shoulder RT wo con Accession Number(s): [id number] cc: Name,Morales RAMSEY; Best Sierra MD CLINICAL [...] 09/11/24 1442 DD/ 1440 TD/TT: 09/11/24 1440 Coordinate Measuring Machine Programmer: us [facility] External Provider IMG MRI PROCEDURES Edited Result - Final * XR Fingers 2+ Views Right (09/10/2024 9:28 AM EST) Anatomical Region Laterality Modality Upper Extremities, Fingers Right Radio graphic Imaging 09/10/2024 9:28 AM EST Narrative 09/10/2024 10:05 AM EST ?[facility] ?[address] ?[place] [address] ?XRay Report ? Signed ? Patient: Traci Dahl ?MR#: [id number] ?? [id number] ? : 1975 ?Acct:[id number] ? Age/Sex: 49 / F ?ADM Date: 09/10/24 ? Loc: HO.HHCX ? Attending Dr: Denny Bocanegra MD ? Ordering Physician: DENNY BOCANEGRA MD ?? Date of Service: 09/10/24 ?? Procedure(s): XR finger RT min 2V ?? Accession Number(s): [id number] ? cc: DENNY BOCANEGRA MD ? EXAMINATION: [...] DD/ 0928 ? TD/TT: 09/10/24 0950 ? Coordinate Measuring Machine Programmer: ? Procedure Note Diana, Image - 09/10/2024 [facility] [address] [place] [address] XRay Report Signed Patient: Traci DahlMR#: [id number] : 1975Acct:[id number] Age/Sex: 49 / FADM Date: 09/10/24 Loc: HO.HHCX Attending Dr: Denny Bocanegra MD Ordering Physician: DENNY BOCANEGRA MD Date of Service: 09/10/24 Procedure(s): XR finger RT min 2V Accession Number(s): [id number] cc: DENNY BOCANEGRA MD EXAMINATION: XR FINGER, [...] 09/10/24 1002 DD/ 0928 TD/TT: 09/10/24 0950 Coordinate Measuring Machine Programmer: us Denny Bocanegra MD IMG XR PROCEDURES Final Result * XR Elbow 3+ Views Left (09/10/2024 9:28 AM EST) Anatomical Region Laterality Modality Upper Extremities, Elbow Left Radiogr aphic Imaging 09/10/2024 9:28 AM EST Narrative 09/10/2024 10:05 AM EST ?[facility] [facility] ?[address] ?[place] [address] ?XRay Report ? Signed ? Patient: Lara Ortega,Traci ?MR#: [id number] ?? [id number] ? : 1975 ?Acct:[id number] ? Age/Sex: 49 / F ?ADM Date: 09/10/24 ? Loc: HO.HHCX ? Attending Dr: Denny Bocanegra MD ? Ordering Physician: DENNY BOCANEGRA MD ?? Date of Service: 09/10/24 ?? Procedure(s): XR elbow LT min 3V ?? Accession Number(s): [id number] ? cc: DENNY BOCANEGRA MD ? EXAMINATION: [...] DD/ 0928 ? TD/TT: 09/10/24 0950 ? Coordinate Measuring Machine Programmer: ? Procedure Note Diana, Image - 09/10/2024 [place] [address] XRay Report Signed Patient: Traci DahlMR#: [id number] : 1975Acct:[id number] Age/Sex: 49 / FADM Date: 09/10/24 Loc: HO.HHCX Attending Dr: Denny Bocanegra MD Ordering Physician: DENNY BOCANEGRA MD Date of Service: 09/10/24 Procedure(s): XR elbow LT min 3V Accession Number(s): [id number] cc: DENNY BOCANEGRA MD EXAMINATION: XR ELBOW, [...] 09/10/24 1003 DD/ 0928 TD/TT: 09/10/24 0950 Coordinate Measuring Machine Programmer: Denny Bocanegra MD IMG XR PROCEDURES Final Result * XR Shoulder 2+ Views Right (08/19/2024 9:25 AM EST) Anatomical Region Laterality Modality Upper Extremities, Shoulder Right Radi ographic Imaging 08/19/2024 9:25 AM EST Narrative 08/19/2024 9:56 AM EST ?[facility] ?[address] ?[place] [address] ?XRay Report ? Signed ? Patient: Traci Dahl ?MR#: [id number] ?? [id number] ? : 1975 ?Acct:[id number] ? Age/Sex: 49 / F ?ADM Date: 08/19/24 ? Loc: HO.HHCX ? Attending Dr: Denny Bocanegra MD ? Ordering Physician: DENNY BOCANEGRA MD ?? Date of Service: 08/19/24 ?? Procedure(s): XR shoulder RT min 2V ?? Accession Number(s): [id number] ? cc: DENNY BOCANEGRA MD ? EXAMINATION: [...] ? Signed By: ?<Electronically signed by Jamarcus aLcy MD in OV> ?08/19/24 0954 ? DD/ 4 ? TD/TT: 08/19/249[address] ? Coordinate Measuring Machine Programmer: ? Procedure Note Donotuseinterpreter, Image - 08/19/[address] [address] XRay Report Signed Patient: Traci DahlMR#: [id number] : 1975Acct:[id number] Age/Sex: 49 / FADM Date: 08/19/24 [facility]: Denny Bocanegra MD Ordering Physician: DENNY BOCANEGRA MD Date of Service: 08/19/24 Procedure(s): XR shoulder RT min 2V Accession Number(s): [id number] cc: DENNY BOCANEGRA MD EXAMINATION: XR SHOULDER [...] MD in OV> 08/19/2454 DD/ 4 TD/TT: 08/19/24948 Coordinate Measuring Machine Programmer: Denny Bocanegra MD IMG XR PROCEDURES Edited Result - Final * Hemoglobin A1c (04/26/2024 8:28 AM EDT) Hemoglobin A1c 4.9 <6.0 % [facility] Comment:Hemoglobin A1C Refer ence Range Adults: 4.8 - 6.0 % Non diabetic: < 6.0 % Goal: < 7.0 %Additional Action Suggested: > 8.0 %Note: Hemoglobin A1c results are invalid for patients with abnormal amounts of HbF. Blood transfusions may impact the HbA1c concentration in the patient sample. Estimated Average Glucose 94 mg/dL [facility] Comment:eAG = Estimated ave rage glucose which is %A1C expressed asaverage glucose, using the formula of the G0M-ZdqmefgRxppzie Glucose study (ADAG), Diabetes Care, Vol.31,#8,Feb. 2007 04/26/2024 8:28 AM EDT 04/26/2024 8:28 AM EDT us Generic External Data Provider LAB BLOOD ORDERAB LES Final Result Performing Organization Address City/State/[facility] Co de Phone Number [facility] [address] [place] [phone] * (ABNORMAL) Lipid Panel, Standard (04/26/2024 8:28 AM EDT) Triglycerides 80 <150 mg/dL [facility] Comment:Desirable Triglyceri de: less than 150 mg/dLBorderline High Triglyceride 150-199 mg/dLHigh Triglyceride: 200-499 mg/dLVery High Triglyceride: greater than or equal to 5OO mg/dL Cholesterol 186 <200 mg/dL [facility] Comment:Desirable Cholestero l: less than 200 mg/dLBorderline High Cholesterol: 200-239 mg/dLHigh Cholesterol: greater than 239 mg/dL LDL Cholesterol Calculated 120(H) <100 mg/dL [facility] Comment:Desirable LDL: less than 100 mg/dLNear Optimal/Above Optimal LDL: 110- 129 mg/dLBorderline High LDL: 130-159 mg/dLHigh LDL: 160-189 mg/dLVery High LDL: greater than or equal to 190 mg/dL HDL Cholesterol 50 >40 mg/dL [facility] Comment:Desirable HDL: great er than 40 mg/dL Note: This HDL assay may give artificially low results in patients with liver disease. 04/26/2024 8:28 AM EDT 04/26/2024 8:28 AM EDT us Generic External Data Provider LAB BLOOD ORDERAB LES Final Result [facility] [address] [place] [address] [phone] * Hm Colonoscopy (03/18/2024) Colonoscopy Normal Normal 03/18/2024 us Morales Name MD HEALTH MAINTENANCE Final Result * BI Mammogram Screening Tomosynthesis Bilateral (10/11/2022 12:03 PM EDT) Anatomical Region Laterality Modality Breast Bilateral Mammography 10/11/2022 12:0 3 PM EDT Narrative 10/12/2022 5:03 PM EDT ? [facility] [place] ? [address] ?[place] [address] ? Mammography Report ? Signed ? Patient: Traci Dahl ?MR#: [id number] ?? [id number] ? : 1975 ?Acct:[id number] ? Age/Sex: 47 / F ?ADM Date: 04/04/23 ? Loc: HO.MAMMO ? Attending Dr: Celso Galo CNM ? Ordering Physician: CELSO GALO CNM ?Results: 1 ?? Negative ? Date of Service: 10/11/22 ?Follow Up: 1 Year From Orig ?? inal Mammogram ? Procedure(s): MM tomosynthesis screening BI ?? Accession Number(s): [id number] ? cc: CELSO GALO CNM ? EXAMINATION: [...] signed by Keenan Song MD in OV> ?04/05/23 1700 ? DD/DT: 04// 1203 ? TD/TT: ? Coordinate Measuring Machine Programmer: ARRIAGA ? Procedure Note Donotuseinterpreter, Image - 10/12/2022 [facility] [address] [place] [address] [place] [address] Mammography Report Signed Patient: Traci DahlMR#: [id number] : 1975Acct:[id number] Age/Sex: 47 / FADM Date: 10/11/22 Loc: HO.MAMMO Attending Dr: Celso Galo CNM Ordering Physician: CELSO GALOesults: 1 Negative Date of Service: 10/11/22Follow Up: 1 Year From Orig inal Mammogram Procedure(s): MM tomosynthesis screening BI Accession Number(s): [id number] cc: CELSO GALO CNM EXAMINATION: MM SCREENING [...] in OV> 10/12/22 1700 DD/ 1203 TD/TT: Coordinate Measuring Machine Programmer: BART [facility] External Provider IMG BI PROCEDURES Final Result * THINPREP TIS PAP AND HPV mRNA E6/E7 WITH REFLEX TO HPV 16,18/45 (07/12/2021 10:33 AM EST) Clinical Information: None given [facility] COMMENT SEE COMMENT [facility] [...] has been evaluated with computer assisted technology. [employer] [facility] Metal Burrer: SEE COMMENT [facility] Comment: YP, CT(ASCP) CT screening location: [address] ??[address] HPV nRNA E6/E7 Not Detected Not Detected [employer] [facility] Comment: Methodology: Electrical Linesworker-Mediated Amplification This assay detects E6/E7 viral messenger RNA (mRNA) from 14 high-risk HPV types (16,18,31,33,35,39,45,51,52,56,58,59,66,68). ? The analytical performance characteristics of this assay have been determined by [employer]. The modifications have not been cleared or approved by the FDA. This assay has been validated pursuant to the CLIA regulations and is used for clinical purposes. ?? For additional information, please refer to http://education.[employer]/faq/WRM948k3 (This link if provided for information/ educational purposes only.) Interpretation/Re sult: Negative for intraepithelial lesion or malignancy. [facility] [employer] [facility] LMP: 121,321 [facility] Prev. BX: NONE GIVEN [facility] Prev. PAP: NONE GIVEN [facility] SOURCE: None given [facility] Statement Of Adequacy: SEE COMMENT [employer] [facility] Comment: Satisfactory for evaluation. Endocervical/transformation zone component absent. 07/12/2021 10:3 3 AM EST us Celso Gonzalo CN LAB PATHOLOGY ORDERABLES Final Result [facility] [address] [place] [address], from Last 3 Months or Most Recently Relevant to Health Maintenance Insurance [facility] ST[facility] Care Teams Media/Instructional Designer Relationship Specialty Start Date End Date Name, MD Morales [address] [place] [place] [address] PCP - General Family Medicine 07/01/21
--- OUTSIDE RECORDS SUMMARY | 2024-10-11 08:52 | XMS_ITS | Patient Health Record ---
Author Organization [facility] Address [address] [place] [address] Care Team Providers Care Projection Welding Machine Operator Name Role Phone Linda Lopez Primary Care Provider Jamarcus Anderson [phone] Allergies Allergen (clinical drug ingredient) Drug/Non Drug Allergy documented on EMR Reaction Allergy Type Onset Date Status PredniSONE Unknown Drug Allergy Active naproxen Naproxen Unknown Drug Allergy Active Motrin Unknown Drug Allergy Active Results Component Value Reference Range Notes Pathology Reviewed date:04/03/2024 08:25:28 AM Interpretation: Performing Lab:[facility], [address] [place] [address] Notes/Report: Name: Gretchen Holm Age/Sex: 48/F : 1975 Unit#: [id number] Attend Dr: Paolo Olivas MD Re03/17/24 Status : DIS IN Location: [facility] 450-1 Disch: 03/23/24 SPEC : [id number] RECD : 03/25/24 STATUS: CHELSEA MANCINI NUM: [id number] GRANT: 03/22/24-14[address] [facility] [address]: Kameron Olivo MD ENTERED: 03/25/24 SP [...] examinat ion, 3 pieces in cassette A. [facility] Special studies orde red and performed: Immunostain for H. pylori on A1. CONTINUED ON NEXT PAGE Name: Gretchen Holm Age/Sex: 48/F : 1975 Unit#: [id number] Attend Dr: Paolo Olivas MD Re03/17/24 Status : DIS IN Location: [facility] 450-1 Disch: 03/23/24 SPEC : [id number] RECD : 03/25/24 STATUS: CHELSEA MANCINI NUM: [id number] GRANT: 03/22/24-[address] [facility] [address]: Kameron Olivo MD ENTERED: 03/25/24- 15 SP TYPE: Surgical OTHR DR: Paolo Olivas MD Name,Morales RAMSEY ORDERED: HE Stain/3, Gross Micro L4, IHC, H. pylori Copies To: Kameron Olivo MD [facility] [address] [place] [address] Paolo Olivas MD [address] [place] [address] Name,Morales RAMSEY [address] [place] [address] [phone] Signed (si gnature on file) Priti Ellis 03/26/24 1035 END OF REPORT Reason For Referral Referring Provider First Name Morales Referring Provider Last Name Name Referring Provider Speciality Internal M edicine Referred Organization [facility] Referred Provider Jamarcus Banda Referred Address [address] [place] [address],[place], [place],[address], Referred Provider Specialty Gastroentero logy Referral Priority Routine Medications Medication SIG (Take, Route, Frequency, Duration) Notes Start Date End Date Status Albuterol Active Omeprazole 20 MG 1 capsule Orally Onc e a day Active Ejxccnwavc-ESAX-Xyoleumr 50-325-40 MG TAKE ONE TABLET BY MOUTH [...] Problem Status W/U Status Risk Notes Problem 47023029 Heartburn (R12) Active confirmed Problem 602763171 Gastroesophageal reflux disease, esophagitis presence not specified (K21.9) Active confirmed Problem Esophageal stricture (08770078) Esophageal stricture (K22.2) Active confirmed Problem Diverticular disease of colon (400747553) Diverticulosis large intestine w/o perforation or abscess w/o bleeding (K57.30) Active confirmed Encounters Encounter Location Date Provider Diagnosis [facility] [address] [place] [address] 04/03/2024 Jamarcus Banda [facility] [address] [place] [address] 08/05/2024 Jamarcus Banda Plan Of Treatment Pending Test Test Name Order Date GI BIOPSY 01/03/2018 Future Test Test Name Order Date UPPER GI ENDOSCOPY 08/22/2017 Next Appt Details Provider Name:Jamarcus Banda , 12/05/2024 11:00:00 AM, [address] [facility], [address], [place], [address], Insurance Providers Payer Name Payer Address Payer Phone Subscriber Number Group Number Insured Name Patient Relationship to Insured Coverage Start Date Coverage End Date MEDICAID OF [employer] [address] [place] [phone] [id number] CHUCHO HOLM Self - patient is the insured Medical (General) History Medical History History ICD Code Denies [place],CVA,renal disease Hypertension NIDDM Asthma GERD--E[place] in 2009 [place]--she describes gastritis with probable H.pylori and a hiatal hernia--describes being treated with antibiotics Sleep apnea--uses CPAP Mild diverticulitis on CT scan in 7 Surgical History Surgery Date(Month/Year) Tubal ligation 1997 Cholecystectomy 1997
--- OUTSIDE RECORDS SUMMARY | 2024-10-11 08:52 | XMS_ITS ---
Author Organization [facility] Address [address] [place] [address] Care Team Providers Care Greenhouse Or Nursery Transplanter Name Role Phone Linda Lopez Primary Care Provider UnavailJamarcus Bermeo [phone] REASON FOR VISIT pathology Encounters Encounter Location Date Provider Diagnosis [facility] [address] [place] [address] 04/03/2024 Jamarcus Banda Plan Of Treatment Next Appt Details Provider Name:Jamarcus Banda , 12/05/2024 11:00:00 AM, [address], [address], [place], [address], Progress Notes * CHUCHO HOLMDOB:[birth year] (48 yo F)Acc No.[id number]:04/03/2024 Patient:?CHUCHO HOLM :1975???Age:48 Y???Sex:Female Address:[address] [place] [address] [address], [place], [address] * true * Date:? Generated for Printi francisco j/Cadence/eTransmitting on:?10/11/2024 08:51 AM EDT
== END 2024-10-11 09:28 | disposition home or self-care (01) ==
LOC: HO.PMC 08:28
PROVIDERS: PCP Internal Medicine Geriatric Medicine; Referring Provider Emergency Medicine; Visit Provider Nurse Practitioner Family
DX: M43.16 Spondylolisthesis, lumbar region (principal); M41.86 Other forms of scoliosis, lumbar region; M47.817 Spondylosis without myelopathy or radiculopathy, lumbosacral region; M54.16 Radiculopathy, lumbar region; M53.3 Sacrococcygeal disorders, not elsewhere classified; E66.9 Obesity, unspecified
CPT/HCPCS: 99204

== ENCOUNTER → 2024-10-11 08:27 | Outpatient (BNVA) | payer MEDICAID, SELFPAY | PROVIDERS: PCP Internal Medicine Geriatric Medicine; Referring Provider Emergency Medicine; Visit Provider Nurse Practitioner Family | DX: M43.16 Spondylolisthesis, lumbar region (principal); M41.86 Other forms of scoliosis, lumbar region; M47.817 Spondylosis without myelopathy or radiculopathy, lumbosacral region; M54.16 Radiculopathy, lumbar region; M53.3 Sacrococcygeal disorders, not elsewhere classified; E66.9 Obesity, unspecified; Z68.37 Body mass index [BMI] 37.0-37.9, adult | CPT/HCPCS: 99212 ==

== ENCOUNTER 2024-11-04 11:08 | Outpatient (REF) | payer MEDICAID, SELFPAY ==
[2024-11-04 13:11] LABS: MANUAL DIFF FLAG NO
--- OUTSIDE RECORDS SUMMARY | 2024-11-04 13:24 | XMS_ITS | Encounter Summary ---
Author Organization [employer] Address [address] [facility] 7t [place] [address] Care Team Providers Care Organ Fixer Name Role Phone Name, Morales RAMSEY Primary Care Provider [phone] Reason for Visit * Reason Onset Date Comments CHART PREP 11/01/2024 Encounter Details Date Type Department Care Team ([facility] st Contact Info) Description 11/01/2024 Telephone [facility] [address] [place] [address] Name, MD Morales [address] [place] [address] CHART PREP Social History Tobacco Use Types Packs/Day Years Used Date Smoking Tobacco: Never Smokeless Tobacco: Never Alcohol Use Standard Drinks/Week Comments Never 0 (1 standard drink = 0.6 oz pur e alcohol) Depression Answer Date Recorded Patient Health Questionnaire-9 Score 1 10/14/2024 Patient Health Questionnaire-9 Score 1 10/14/2024 Last PHQ-9: Questionnaire Data Not on file 0 10/14/2024 Housing Stability Answer Date Recorded What is your housing situation today? I have howard lisbet 04/03/[address] you li [...] Date Recorded Patient Health Questionnaire-2 Score 0 10/14/2024 Internet Access Answer Date Recorded Internet Access [...] encounter Miscellaneous Notes * Telephone Encounter - Yamini Robins [place] - 11/01/2024 9:53 AM EDT Chart Prep Labs: not applicable Images: done Referrals: complete Vaccines due: yes Hep B, Pneumo, Zoster Screenings: not applicable Overdue care gaps: Disability, PHQ-9, DIGNA-7,Sbirt documented in this encounter Plan of Treatment Not on file documented as of this encounter Visit Diagnoses Not on filedocumented in this encounter Additional Health Concerns Assessment Noted Time PHQ-9 Depression Total Score: 1 10/15/19 10:58 AM EDT documented as of this encounter Care Teams Organ Fixer Relationship Specialty Start Date End Date Name, MD Morales [address] [place] [address] PCP - General Family Medicine 07/01/21 documented as of this encounter
--- OUTSIDE RECORDS SUMMARY | 2024-11-04 13:24 | XMS_ITS | Clinical Summary ---
Author Organization [facility] [address] Address [address] [place] [address] Phone Care Team Providers Care Merchandise Planner Name Role Phone Unavailable Primary Care Provider [...] 2024 06/14/2022, 11/10/2021, 12/26/2020, Additional history exists Pneumococcal Vaccine (50+ years) (2 of 2 - PCV) 2024 08/01/2016 Shingles vaccine (Shingrix) (1 of 2 - Shingrix (RZV) 2 Dose Standard Series) 2024 Breast cancer screening 10/11/2024 10/11/2022, 10/11 Influenza vaccine 03/10/2025 04/10/2024, , 06/14/2022, Additional history exists Diabetes screening 01/28/2027 01/29/2024 Lipid disorder screening 01/28/2029 01/29/2024 Tetanus adult (Td q 10,TDAP once) 02/19/2029 02/19/2019 RSV Immunization (1 - 1-dose 75+ series) 2049 Pneumococcal Vaccine (2 - 49 years) Discontinued 08/01/2016 HIV screening Completed 01/29/2024 Hepatitis C screening Completed 01/29/2024 Meningococcal Vaccine Aged Out No chad balbir [...] ag/ab, w/reflexes (Q) (01/29/2024 10:55 AM EDT) Pathologist [facility] HIV Ag/Ab, 4th Generation NON-REACT KIERAN NON-REACT [...] ?? For additional information please refer to http://education.Pikum.HomeCon/faq/NED311 (This link is being provided for informational/ educational purposes only.) The performance of this assay has not been clinically validated in patients less than 2 years old. Blood 01/29/2024 10:5 5 AM EDT 01/29/2024 10:56 AM EDT Narrative Resulting Agency Comment Performing Lab: ?Site ID: [id number] ?Name: [employer] ?Address: [address] [place] [phone] ?Director: Guilherme Quinteros M.D. Rachael JANE LAB BLOOD ORDERABLES F inal Result Performing Organization Address [facility] Co de Phone Number [facility] [address] * Hepatitis C Ab with reflex to HCV PCR (01/29/2024 10:55 AM EDT) Pathologist [facility] Hepatitis C Ab NON-REACT KIERAN NON-REACT KIERAN [facility] Comment: HCV antibody was non-reactive. There is no laboratory evidence of HCV infection. In most cases, no further action is required. However, if recent HCV exposure is suspected, a test for HCV RNA (test code 40677) is suggested. For additional information please refer to http://education.Transition Therapeutics/faq/CMU98f7 (This link is being provided for informational/ educational purposes only.) 01/29/2024 10:5 5 AM EDT 01/29/2024 10:56 AM EDT Narrative Resulting Agency Comment Performing Lab: ?Site ID: [id number] ?Name: [employer] ?Address: [address] [place] [phone] ?Director: Guilherme Quinteros M.D. Rachael JANE LAB BLOOD ORDERABLES F inal Result Performing Organization Address [facility] Co de Phone Number [facility] [address] * (ABNORMAL) Lipid panel with reflex to direct LDL (Q) (01/29/2024 10:51 AM EDT) Pathologist [facility] Cholesterol, Total 203(H) <200 mg/dL [facility] [...] LDL-C. Misael SS et al. BELLA. 2013;310(19): 7618-3545 (http://education.YellowSchedule.HomeCon/faq/ANG039) Chol/HDL Ratio 3.6 <5.0 (calc) [facility] Non-HDL Cholesterol 146(H) <130 mg/dL (calc) [facility] Comment: For patients with diabetes plus 1 major ASCVD risk factor, treating to a non-HDL-C goal of <100 mg/dL (LDL-C of <70 mg/dL) is considered a therapeutic option. 01/29/2024 10:5 1 AM EDT 01/29/2024 10:52 AM EDT Narrative Resulting Agency Comment Performing Lab: ?Site ID: [id number] ?Name: [employer] ?Address: [address] [place] [phone] ?Director: Guilherme Quinteros M.D. Rachael JANE LAB BLOOD ORDERABLES F inal Result [facility] [address] [place] [address] * (ABNORMAL) Comprehensive metabolic panel (01/29/2024 10:51 AM EDT) Pathologist [facility] Glucose 79 65 - 99 mg/dL [facility] [...] Comment Performing Lab: ?Site ID: [id number] ?Name: [employer] ?Address: [address] [place] [phone] ?Director: Guilherme Quinteros M.D. Rachael JANE LAB BLOOD ORDERABLES F inal Result Performing Organization Address City/State/[facility] Co de Phone Number [facility] [address] [place] [address] from Last 3 Months or Most Recently Relevant to Health Maintenance Insurance [place]
--- OUTSIDE RECORDS SUMMARY | 2024-11-04 13:24 | XMS_ITS | Clinical Summary ---
Author Organization [facility] Address [address] [place] [address] Care Team Providers Care Lawn Sprinkler Installer Name Role Phone Unavailable Primary Care Provider Unavailabl e Allergies Active Allergy Reactions Criticality Noted Date Comments Dexamethasone Itching Low 01/19/2021 Immunizations Immunization Administration Dates Next Due Covid-19 MRNA Vaccine - Pfizer 12+ (Purple Cap) 12/26/2020,12/05/2020 Social History Tobacco Use Types Packs/Day Years Used Date Smoking Tobacco: Never Assessed Comments Unknown Sex and Gender Information Value Date Recorded Sex Assigned at Not on file Legal Sex Female 10:15 AM EDT Gender Identity Not on file Sexual [...] Colonoscopy 2019 Influenza Vaccine 02/08/2024 COVID-19 Vaccine (2023- season) 2024, 12/05/2020 Pneumococcal Vaccines 50+ (1 of 1 - PCV) 2024 Zoster (Shingles) Vaccine (1 of 2) 2024 Insurance MEDICAID OUT OF STATE [facility] on file
--- OUTSIDE RECORDS SUMMARY | 2024-11-04 13:24 | XMS_ITS | Encounter Summary ---
Author Organization [employer] Address [address] [facility] 7t [place] [address] Care Team Providers Care Touch Up Painter Hand Name Role Phone Name, Morales RAMSEY Primary Care Provider [phone] Reason for Visit * Reason Comments Care Coordination C3/CM F/U Encounter Details Date Type Department Care Team (Latest Contact Info) Description 10/31/2024 Patient Outreach [facility] [address] [place] [address] Name, MD Morales [address] [place] [address] Care Coordination (C3/CM F/U) Social History Tobacco Use Types Packs/Day Years [...] AM EDT documented as of this encounter Progress Notes * Mirlande Lopez - 10/31/2024 9:45 AM EDT CHW Mirlande Lopez placed outbound call to patient to follow up on SDOH needs. Patient's name, and address confirmed. Patient states is doing well. No further questions or concerns. CHW reinforced direct contact information or CM for any additional questions or concerns and extended clinic hours on Mondays and Wednesdays, and Walk-In Urgent Care Located in [facility] of [facility]. Patient provided with after-hours line for [facility], , which offer night time triage service and option to transfer to medical radiation therapist provider if needed. Patient verbalizes understanding, and able to repeat back to underwriter. A follow up call willbe placed within 10 days, patient agrees with plan. documented in this encounter Plan of Treatment Not on file documented as of this encounter Visit Diagnoses Not on filedocumented in this encounter Additional Health Concerns Assessment Noted Time PHQ-9 Depression Total Score: 1 10/15/19 10:58 AM EDT documented as of this encounter Care Teams Touch Up Painter Hand Relationship Specialty Start Date End Date Name, MD Morales [address] [place] [address] PCP - General Family Medicine 07/01/21 documented as of this encounter
--- OUTSIDE RECORDS SUMMARY | 2024-11-04 13:24 | XMS_ITS | Encounter Summary ---
Author Organization [employer] Address [address] [facility] [address] [address] 7t [place] [address] Care Team Providers Care Maintenance Journeyman Name Role Phone Name, Morales RAMSEY Primary Care Provider [phone] Encounter Details Date Type Department Care Team ([facility] st Contact Info) Description 10/31/2024 Patient Outreach [facility] MEDICINE [address] [place] [address] Name, MD Morales [address] [place] [address] Social History Tobacco Use Types Packs/Day Years [...] your housing situation today? I have howard sing 04/03/[address] you li [...] as of this encounter Plan of Treatment Not on file documented as of this encounter Visit Diagnoses Not on filedocumented in this encounter Additional Health Concerns Assessment Noted Time PHQ-9 Depression Total Score: 1 10/15/19 25 10:58 AM EDT documented as of this encounter Care Teams Maintenance Journeyman Relationship Specialty Start Date End Date Name, MD Morales [address] [place] [address] PCP - General Family Medicine 07/01/21 documented as of this encounter
--- OUTSIDE RECORDS SUMMARY | 2024-11-04 13:24 | XMS_ITS ---
Author Organization [employer] Address [address] [place] [address] 7t [place] [address] Care Team Providers Care Brushing Machine Operator Name Role Phone Name, Morales RAMSEY Primary Care Provider [phone] CHW Complex Status:Enrolled (Active) Start date:09/25/2024 Enrollment date:10/14/2024 Enrollment reason:ADT Feed Overview [facility] 09/24 Case Team Name Relationship Phone Mirlande Lopez (Responsible Staff) Continued Care and Services Coordination
--- OUTSIDE RECORDS SUMMARY | 2024-11-04 13:24 | XMS_ITS ---
Author Organization [employer] Address [address] [place] [address] 7t [place] [address] Care Team Providers Care Parimutuel Ticket Cashier Name Role Phone Name, Morales RAMSEY Primary Care Provider [phone] CM Complex Status:Enrolled (Active) Start date:09/25/2024 Enrollment date:10/14/2024 Enrollment reason:ADT Feed Overview ED- Pt went to [facility] ED on 09/24. Case Team Name Relationship Phone Yesica Palencia RN Registered Nurse(Responsible S taff) Continued Care and Services Coordination
--- OUTSIDE RECORDS SUMMARY | 2024-11-04 13:24 | XMS_ITS | Encounter Summary ---
Author Organization [employer] Address [address] [facility] 7t [place] [address] Care Team Providers Care Reweaver Name Role Phone Name, Morales RAMSEY Primary Care Provider [phone] Encounter Details Date Type Department Care Team (Latest Contact Info) Description 11/04/2024 Travel Social History Tobacco Use Types Packs/Day Years Used Date Smoking Tobacco: Never Smokeless Tobacco: Never Alcohol Use Standard Drinks/Week Comments Never 0 (1 standard drink = 0.6 oz pur e alcohol) Depression Answer Date Recorded Patient Health Questionnaire-9 Score 10 11/04/2024 Patient Health Questionnaire-9 Score 10 11/04/2024 Last PHQ-9: Questionnaire Data Not on file 0 11/04/2024 Housing Stability Answer Date Recorded What is your housing situation today? I have howardrachel frausto 04/03/[address] you [...] Answer Date Recorded Patient Health Questionnaire-2 Score 1 11/04/2024 Internet Access Answer Date Recorded Internet Access Q1 Yes 04/03/2024 Internet Access Q2 Not on file 04/03/2024 Comments No Sex and Gender Information Value Date Recorded [...] Assessment Noted Time PHQ-9 Depression Total Score: 10 025 10:51 AM EDT documented as of this encounter Care Teams Reweaver Relationship Specialty Start Date End Date Name, MD Morales [address] [place] [address] PCP - General Family Medicine 07/01/21 documented as of this encounter
--- OUTSIDE RECORDS SUMMARY | 2024-11-04 13:24 | XMS_ITS | Encounter Summary ---
Author Organization [employer] Address [address] [facility] [address] 7t [place] [address] Care Team Providers Care Photoengraving Finisher Name Role Phone Name, Moralse RAMSEY Primary Care Provider [phone] Encounter Details Date Type Department Care Team ([facility] st Contact Info) Description 11/01/2024 Patient Outreach [facility] [address] [place] [address] Name, MD Morales [address] [place] [address] Social History Tobacco Use Types Packs/Day Years [...] as of this encounter Progress Notes * Yesica Palencia RN - 11/01/2024 11:14 AM EDT OPHELIA Palencia RN and CHW Mirlande Lopez placed outbound call to patient. Patient's name, and address confirmed. Patient states is doing well with no recent illnesses or emergency room visits. Pt states she has an upcoming appt with eye and Lasik in December and has a formof transportation to all her appts. Pt states she is coping well with anxiety and depression even though she will benefit from therapy. Pt denies SI/HI. OPHELIA has previously sent a message to the BHN team regarding pt's request.CM advised pt to request for BHN during her upcoming appt with PCP. Also she should request for nutrition referral as requested by her during last appt. No further questions or concerns. CM reinforced direct contact information or CHW for any additional questions or concerns. Education provided on [facility]. Patient provided with after-hours line for [facility], , which offer nighttime triage service and option to transfer to meat boner provider if needed. Patient verbalizes understanding, and able to repeat back to medical technical writer. A follow up call will be placed within 10 days, patient agrees with plan. documented in this encounter Plan of Treatment Not on file documented as of this encounter Visit Diagnoses Not on filedocumented in this encounter Additional Health Concerns Assessment Noted Time PHQ-9 Depression Total Score: 1 10/15/19 25 10:58 AM EDT documented as of this encounter Care Teams Photoengraving Finisher Relationship Specialty Start Date End Date Name, MD Morales [address] [place] [address] PCP - General Family Medicine 07/01/21 documented as of this encounter
--- OUTSIDE RECORDS SUMMARY | 2024-11-04 13:24 | XMS_ITS | Encounter Summary ---
Author Organization [email or web address] Address [address] [place] [address] Care Team Providers Care Frame Bender Name Role Phone Name, Morales RAMSEY Primary Care Provider [phone] Reason for Visit * Reason Onset Date Comments Hospital Follow-up 03/29/2024 Encounter Details Date Type Department Care Team ([facility] st Contact Info) Description 03/29/[address] [facility] [address] [place] [address] Name, MD Morales [address] [place] [address] Hospital Follow-up Social History Tobacco Use Types [...] EDT Please obtain in patient notes from [facility] admitted 03/17/24 and transfer to [facility] inpatient with diwscharge date of 03/28/24. Hospital discharge follow up appt booked for 04/05/24 Monica CHISHOLM 2pm * Telephone Encounter - Senia Levine LPN - 03/29/2024 10:40 AM EDT Triage call returned to patient with [id number]. Patient discharged from [facility] yesterday. Initial admission to [facility] on 03/17/24 transferred to [facility] after 6 days and discharged to home yesterday. is feeling well. Concerned with Insurance coverage.[place] active as run today. No new symptoms [...] You become worse * Telephone Encounter - Surajkong Diaz - 03/29/2024 9:12 AM EDT Tc from pt requesting a HDF appt. Hospital: [facility] Date of admission: 03/17/24 Discharge date: 03/28/24 Diagnosed: Abdominal Pain (Romansh Speaker) documented in this encounter Plan of Treatment Not on file documented as of this encounter Visit Diagnoses Not on filedocumented in this encounter Additional Health Concerns Assessment Noted Time PHQ-9 Depression Total Score: 0 12/16/19 23 11:12 AM EDT documented as of this encounter Care Teams Frame Bender Relationship Specialty Start Date End Date Name, MD Morales [address] [place] [id number] PCP - General Family Medicine 07/01/21 documented as of this encounter
--- OUTSIDE RECORDS SUMMARY | 2024-11-04 13:24 | XMS_ITS | Encounter Summary ---
Author Organization [employer] Address [address] [place] [address] [address] [place] [address] Care Team Providers Care Four Slide Machine Setter Name Role Phone Morales Ly MD Primary Care Provider [phone] Reason for Referral * Consultation (Routine) - Authorized Specialty Diagnoses / Procedures Referred By Contamrik t Referred To Contact Midwifery Diagnoses Menorrhagia with irregular cycle Morales Ly MD [address] [place] [address] Phone: tel: fax: Millie Sánchez CNM [address] [place] [address] Phone: tel: fax: Referral ID Status Reason Start Date Expiration Date Visits Requested Visits Authorized [id number] Authorized Consult and Treat 11/04/2024 11/04/2025 1 1 * Consultation (Routine) - Authorized Specialty Diagnoses / Procedures Referred By Contac t Referred To Contact Family Medicine Diagnoses Seborrheic keratosis Morales Ly MD [address] [place] [address] Phone: tel: fax: Referral ID Status Reason Start Date Expiration Date Visits Requested Visits Authorized [id number] Authorized Specialty Services Required 11/04/2024 11/04/2025 1 1 * Consultation (Routine) - Authorized Specialty Diagnoses / Procedures Referred By Contac t Referred To Contact Hematology and Oncology Diagnoses Iron deficiency anemia, unspecified iron deficiency anemia type History of GI bleed Morales Ly MD [address] [place] [address] Phone: tel: fax: [address] Phone: tel: fax: Referral ID Status Reason Start Date Expiration Date Visits Requested Visits Authorized [id number] Authorized Specialty Services Required 11/04/2024 11/04/2025 6 6 * Consultation (Routine) - Closed Specialty Diagnoses / Procedures Referred By Contac t Referred To Contact Gastroenterology Diagnoses Iron deficiency anemia, unspecified iron deficiency anemia type History of GI bleed Morales Ly MD [address] [place] [address] Phone: tel: fax: [facility] [address] [place] [address] [address]nd Floor [place], [place] Phone: tel: fax: Referral ID Status Reason Start Date Expiration Date V isits Requested Visits Authorized [id number] Closed Specialty Services Required 11/04/2024 11/04/2025 6 6 Reason for Visit * Reason Comments Follow-up Encounter Details Date Type Department Care Team (Late st Contact Info) Description 11/04/2024 10:45 AM EDT Office Visit [facility] [address] [place] [address] Morales Ly MD [address] [place] [address] Iron deficiency anemia, unspecified iron deficiency anemia type (Primary Dx); Menorrhagia with irregular cycle; History of GI bleed; Migraine without aura and without status migrainosus, not intractable; Seasonal allergies; Seborrheic keratosis; Chronic right-sided low back pain, unspecified whether sciatica present Social History Tobacco Use Types Packs/Day Years [...] Sign Reading Time Taken Comments Blood Pressure 117/71 11/04/2024 10:24 AM EDT Pulse 63 11/04/2024 10:24 AM EDT Temperature 36.7 ??C (98.1 ??F) 11/04/2024 1 0:24 AM EDT Respiratory Rate 18 11/04/2024 10:2 4 AM EDT Oxygen Saturation 97% 11/04/2024 10: 24 AM EDT Inhaled Oxygen Concentration - - Weight 99.7 kg (219 lb 12.8 oz) 025 10:24 AM EDT Height 162.6 cm (5' 4 ) 11/04/2024 10:2 4 AM EDT Body Mass Index 37.73 11/04/2024 10:24 AM EDT documented in this encounter Progress Notes * Morales Name, - 11/04/2024 10:45 AM EDT Subjective Patient ID: Traci Ortega is a 49 y.o. female who presents for Follow-up. Patient comes for a follow-up visit and we discussed several issues. She has a personal history of bariatric surgery, previous history of GI bleed with negative workup including EGD, colonoscopy, CT angiogram, CT enterography. Today she tells me that she has a hard time tolerating oral iron supplements because of constipation. Her last available hemoglobin from April of last year showed hemoglobin of 10.2 and her ferritin was low at 14. Today she also complains of heavy and irregular menstrual periods. She avoids the use of NSAIDs. She has not followed up with GI since I refer her last year. She is complaining of occasional migraine headaches. She is asymptomatic during her visit but she had a severe headache last week. She thinks it is precipitated by stress. Her headaches are associated with nausea, photophobia, visual scotomas, and scalp hyperesthesia. She is complaining of current low back pain. She has been following with [facility] pain clinic. She is scheduled to have an injection in the low back. She only uses acetaminophen for the pain. She does nothave any leg weakness. No associated GI or complaints. She has been suffering with seasonal allergies. She describes runny nose, sneezing, postnasal drip. She requested to see dermatology because of seborrheic keratosis skin lesion on the left upper backthat she would like removed.. Review of Systems Constitutional: Negative for chills and fever. HENT: Positive for postnasal drip, rhinorrhea and sneezing. Negative for sore throat. Respiratory: Negative for cough, shortness of breath and wheezing. Cardiovascular: Negative for chest pain, palpitations and leg swelling. Gastrointestinal: Negative for abdominal pain and blood in stool. Musculoskeletal: Positive for back pain. Visit Vitals BP 117/71 (BP Location: Left arm, Patient Position: Sitting, BP Cuff Size: Large adult) Pulse 63 Temp 98.1 ??F (36.7 ??C) (Temporal) Resp 18 Ht 5' 4 (1.626 m) Wt 219 lb 12.8 oz (99.7 kg) LMP 10/29/2024 (Approximate) SpO2 97% BMI 37.73 kg/m?? OB Status Having periods Smoking Status Never BSA 2.12 m?? Objective Physical Exam Constitutional: Appearance: Normal appearance. Cardiovascular: Rate and Rhythm: Normal rate and regular rhythm. Heart sounds: No murmur heard. No gallop. Pulmonary: Effort: Pulmonary effort is normal. No respiratory distress. Breath sounds: Normal breath sounds. No wheezing. Musculoskeletal: Right lower leg: No edema. Left lower leg: No edema. Skin: Comments: Seborrheic keratosis skin lesion on the left upper back. Neurological: Mental Status: She is alert. Motor: No weakness. Assessment/Plan Diagnoses and all orders for this visit: Iron deficiency anemia, unspecified iron deficiency anemia type Comments: I recommended to check blood work listed below. Continue oral iron supplements at least every otherday. I will refer to hematology for consideration of IV iron therapy, I will put another referral to GI for follow-up since she has a previous history of GI bleed. She knows to avoid NSAIDs. Referralto gynecology because of her symptoms of heavy menstrual periods Orders: - CBC auto differential; Future - Iron And Total Iron Binding Capacity; Future - Ferritin; Future - Referral to Gastroenterology; Future - Referral to Hematology / Oncology; Future Menorrhagia with irregular cycle - Referral to Gynecology (Millie); Future History of GI bleed - Referral to Gastroenterology; Future - Referral to Hematology / Oncology; Future Migraine without aura and without status migrainosus, not intractable Comments: I recommend low-dose amitriptyline daily for asthma prevention. Imitrex at the onset of the headaches Seasonal allergies Comments: I recommend daily Claritin and Flonase Seborrheic keratosis Comments: Referral to dermatology as requested Orders: - Referral to [facility] Derm Skin Adult; Future Chronic right-sided low back pain, unspecified whether sciatica present Comments: Continue Tylenol and continue following with [facility] pain clinic Other orders - amitriptyline (Elavil) 10 MG tablet; Take 1 tablet (10 mg) by mouth at bedtime. - SUMAtriptan (Imitrex) 25 MG tablet; Take 1 tablet (25 mg) by mouth 1 (one) time if needed for migraine for up to 1 dose. May repeat dose once in 2 hours if no relief. Do not exceed 2 doses in 24 hours. - loratadine (Claritin) 10 MG tablet; Take 1 tablet (10 mg) by mouth Once per day. - fluticasone (Flonase) 50 MCG/ACT nasal spray; Administer 2 sprays into each nostril Once per day.Shake gently. Before first use, prime pump. After use, clean tip and replace cap. documented in this encounter Plan of Treatment Scheduled Orders Name Type Priority Associated Diagnoses Orde r Schedule CBC auto differential Lab Routine Iron deficiency anemia, unspecified iron deficiency anemia type Expected: 11/04/2024 (Approximate), Expires: 11/04/2025 Iron And Total Iron Binding Capacity Lab Routine Iron deficiency anemia, unspecified iron deficiency anemia type Expected: 11/04/2024, Expires: 11/04/2025 Ferritin Lab Routine Iron deficiency anemia, unspecified iron deficiency anemia type Expected: 11/04/2024, Expires: 11/04/2025 Scheduled Referrals Name Type Priority Associated Diagnoses Order Schedule Referral to Gastroenterology Outpatient Referral Routine Iron deficiency anemia, unspecified iron deficiency anemia type History of GI bleed Expected: 11/04/2024 (Approximate), Expires: 11/04/2025 Referral to Hematology / Oncology Outpatient Referral Routine Iron deficiency anemia, unspecified iron deficiency anemia type History of GI bleed Expected: 11/04/2024 (Approximate), Expires: 11/04/2025 Referral to [facility] Derm Skin Adult Outpatient Referral Routine Seborrheic keratosis Expected: 11/04/2024 (Approximate), Expires: 11/04/2025 Referral to Gynecology (Millie) Outpatient Referral Routine Menorrhagia with irregular cycle Expected: 11/04/2024 (Approximate), Expires: 11/04/2025 documented as of this encounter Visit Diagnoses Diagnosis Iron deficiency anemia, unspecified iron deficiency anemia type- Primary Menorrhagia with irregular cycle History of GI bleed Migraine without aura and without status migrainosus, not intractable Seasonal allergies Allergic rhinitis, cause unspecified Seborrheic keratosis Chronic right-sided low back pain, unspecified whether sciatica present documented in this encounter Additional Health Concerns Assessment Noted Time PHQ-9 Depression Total Score: 10 025 10:51 AM EDT documented as of this encounter Care Teams Four Slide Machine Setter Relationship Specialty Start Date End Date Name, MD Morales [address] [place] [address] PCP - General Family Medicine 07/01/21 documented as of this encounter
--- OUTSIDE RECORDS SUMMARY | 2024-11-04 13:24 | XMS_ITS | Encounter Summary ---
Author Organization [employer] Address [address] [place] [address] Care Team Providers Care Head Piece Assembler Name Role Phone Name, Moralse RAMSEY Primary Care Provider [phone] Encounter Details Date Type Department Care Team ([facility] st Contact Info) Description 11/01/2024 Patient Outreach [facility] [address] [place] [address] Name, MD Morales [address] [place] [address] Social History Tobacco Use Types Packs/Day Years [...] documented as of this encounter Care Teams Head Piece Assembler Relationship Specialty Start Date End Date Name, MD Morales [address] [place] [address] PCP - General Family Medicine 07/01/21 documented as of this encounter
--- OUTSIDE RECORDS SUMMARY | 2024-11-04 13:24 | XMS_ITS | Clinical Summary ---
Author Organization [employer] Address [address] [facility] [address] [place] [address] Care Team Providers Care Room Clerk Name Role Phone Name, Morales RAMSEY Primary Care Provider [phone] Allergies Active Allergy Reactions Criticality Noted Date Comments Dexamethasone Itching Low 01/19/2021 Ibuprofen Rash Low 06/14/2022 Medications * This document contains information received from the source organization and may not represent a complete record from that organization. White Petrolatum-Minera l Oil (Wh Petrol-Mineral Oil-Lanolin) 0.1-0.1 % ointment 10/12/19 22 Active glucose blood (FREESTYLE LITE) test strip Use to test blood sugar twice daily 02/24/20 22 Active thiamine (Vitamin B-1) 100 MG tablet Take 1 tablet by mouth at bed time. Active TRUEplus Lancets 33G misc Use to test blood sugar twice daily 06/08/20 22 Active Spacer/Aero-Holdi ng Chambers (OptiChamber Tasha) miscIndications:I nfluenza A 1 each every 4 (four) hours if needed (asthma). 1 each 07/08/20 22 Active albuterol (2.5 MG/3ML) 0.083% nebulizer solutionIndicatio ns:Influenza A Take 3 mL (2.5 mg) by nebulization every 6 (six) hours if needed for wheezing or shortness of breath. 75 mL 1 07/08/20 22 Active diphenhydrAMINE (BENADryl) 25 MG capsuleIndication s:Influenza A Take 2 capsules (50 mg) by mouth every 6 (six) hours if needed for itching. May take 1-2 capsules prn rashor itching 40 capsule 07/08/20 22 Active cyclobenzaprine (Flexeril) 10 MG tabletIndications :Chronic low back pain, unspecified back pain laterality, unspecified whether sciatica present Take 1 tablet (10 mg) by mouth 3 times daily for 20 days. 60 tablet 3 09/08/19 23 Active Calcium Citrate-Vitamin D 315-5 MG-MCG tablet Take 1 tablet by mouth Once per day. 01/07/20 23 Active albuterol (Ventolin HFA) 108 (90 Base) MCG/ACT inhalerIndication s:Asthma, unspecified asthma severity, unspecified whether complicated, unspecified whether persistent Inhale 2 puffs every 6 hours as needed for cough, wheezing, or shortness of breath 18 g 3 05/02/20 24 Active pantoprazole (Protonix) 40 MG EC tablet Take 1 tablet (40 mg) by mouth before breakfast. Do not crush, chew, or split. 90 tablet 3 06/13/20 24 025 Active FeroSul 325 (65 Fe) MG tabletIndications :Dysmenorrhea TAKE 1 TABLET BY MOUTH EVERY DAY WITH ORANGE JUICE 90 tablet 3 06/17/20 24 Active docusate sodium (Colace) 100 MG capsule TAKE 1 CAPSULE BY MOUTH TWICE DAILY 180 capsule 2 07/02/20 24 Active Blood Pressure kit 1 each 2 times daily. 1 kit 09/25/19 25 026 Active lidocaine (Lidoderm) 5 % patchIndications: Lumbar radiculopathy Apply 1 patch topically Once per day. Remove & discard patch within 12 hours or as directed by MD. 30 patch 2 09/28/19 25 025 Active acetaminophen (Tylenol) 500 MG tabletIndications :Lumbar radiculopathy Take 2 tablets (1,000 mg) by mouth every 6 (six) hours if needed for moderate pain or fever. 240 tablet 1 09/28/19 25 025 Active amitriptyline (Elavil) 10 MG tablet Take 1 tablet (10 mg) by mouth at bedtime. 30 tablet 2 11/05/19 25 025 Active SUMAtriptan (Imitrex) 25 MG tablet Take 1 tablet (25 mg) by mouth 1 (one) time if needed for migraine for up to 1 dose. May repeat dose once in 2 hours if no relief. Do not exceed 2 doses in 24 hours. 9 tablet 2 11/05/19 25 Active loratadine (Claritin) 10 MG tablet Take 1 tablet (10 mg) by mouth Once per day. 30 tablet 11/05/19 25 026 Active fluticasone (Flonase) 50 MCG/ACT nasal spray Administer 2 sprays into each nostril Once per day. Shake gently. Before first use, prime pump. After use, clean tip and replace cap. 16 g 11/05/19 026 Active Active Problems Problem Noted Date Diagnosed Date Seasonal allergies 11/04/2024 Moderate depressive disorder 05/27/2024 Severe anxiety 05/27/2024 [...] for Behavioral Health Integration Plan External OP BH therapy referral and OP psychiatry Referral Patient Self Plan Patient to utilize skills provided in intervention , Patient to reach out to [facility] team as needed, Patient to [...] Encounters Date Type Department Care Team Description 11/04/2024 10:45 AM EDT Office Visit [facility] [address] [place] [phone] Morales Ly MD Iron deficiency anemia, unspecified iron deficiency anemia type (Primary Dx); Menorrhagia with irregular cycle; History of GI bleed; Migraine without aura and without status migrainosus, not intractable; Seasonal allergies; Seborrheic keratosis; Chronic right-sided low back pain, unspecified whether sciatica present 11/04/2024 Travel 11/01/2024 Patient Outreach [facility] [address] [place] [address] Morales Ly MD 11/01/2024 Telephone [facility] [address] [place] [phone] Morales Ly MD CHART PREP 11/01/2024 Patient Outreach [facility] [address] [place] [address] Morales Ly MD 10/31/2024 Patient Outreach [facility] [address] [place] [phone] Morales Ly MD 10/31/2024 Patient Outreach [facility] [address] [place] [address] Morales Ly MD Care Coordination (C3/CM F/U) 10/24/2024 Patient Outreach [address] [address] Morales Ly MD 10/14/2024 Telephone [facility] [address] [place] [address] Morales Ly MD Care Coordination ([facility] referral) 10/14/2024 Plan of Care Documentation [address] [address] 10/14/2024 Patient Outreach [facility] [address] [place] [address] Morales Ly MD Care Coordination ([facility] initial assessment/ enrollment) 10/11/2024 Patient Outreach [address] [address] Morales Ly MD Care Coordination (Outreach) 10/02/[address] [address] Morales Ly MD Results 09/27/2024 11:15 AM EDT Office Visit [address] [address] Xi Johnson NP Lumbar radiculopathy (Primary Dx) 09/27/2024 Travel 09/25/2024 Patient Outreach [address] [address] Morales Ly MD 09/25/2024 Patient Outreach [address] [address] Morales Ly MD Care Coordination (C3/CM Outreach) 09/25/[address] [address] Morales Ly MD Nurse Triage; ER Follow-up 09/25/2024 Patient Outreach [address] [address] Morales Ly MD 09/25/2024 Patient Outreach [address] [address] Morales Ly MD Care Coordiantion 09/25/2024 Patient Outreach [facility] [address] [place] [address] Morales Ly MD Care Coordination ([facility] Chart review) 09/25/2024 Patient Outreach [facility] [address] [place] [address] Name, MD Morales 09/24/2024 10:00 AM EDT Office Visit [facility] [address] [place] [address] Denny Bocanegra MD Acute bilateral low back pain with right-sided sciatica (Primary Dx); Hypertension, unspecified type 09/20/2024 Population Health Risk Score [facility] (C[facility]) Department [address] [place] [phone] Provider, Population Health Generic 09/10/2024 9:00 AM EST Office Visit [facility] [address] [place] [address] Denny Bocanegra MD Left elbow pain (Primary Dx); Elbow injury, left, initial encounter; Finger pain, right 09/09/2024 Orders Only [facility] External Provider, [facility] from Last 3 Months Immunizations Name Administration [...] Vaccine 12+ stanley-sucrose (Armenta Cap) 11/10/2021,12/26/2020,12/05/2020 Pneumococcal Conjugate PCV 20 11/04/2024 Pneumococcal Polysaccharide PPSV23 08/01/2016 Tdap 02/19/2019 Zoster, Recombinant 11/04/2024,08/20/2024 Social History Tobacco Use Types Packs/Day Years [...] Mass Index 37.73 11/04/2024 10:24 AM EDT Plan of Treatment Health Maintenance Due Date Last Done Comments CT Colonography 1974 Dental Oral Exam 1974 Dental Prophylaxis 1974 Dental X-Ray: Bitewings 1974 Dental X-Ray: Full Mouth 1974 FIT DNA/Cologuard 1974 FIT 1974 FOBT 1974 HIV Screening 1974 Sigmoidoscopy 1974 Family Planning (PISQ) 1989 Hepatitis C Screening 1992 Hepatitis B Vaccines (1 of 3 - 19+ 3-dose series) 1993 COVID-19 Vaccine ( season) 2024 06/14/2022, 11/10/2021, 12/26/2020, Additional history exists Pap Smear 07/12/2024 07/12/2021 Mammogram 10/11/2024 10/11/2022 Diabetes: Hemoglobin A1C 04/26/2025 024, 01/29/2024, 03/15/2023, Additional history exists SDOH Screening 10/24/2025 10/24/2024 Alcohol/Substance Use Screening 11/04/2025 11/04/2024 Depression Screening 11/04/2025 11/04/2024, 11/05/19 25 Tobacco Screening 11/04/2025 11/04/2024 Cervical Cancer Screening 07/12/2026 HPV/Cotest 07/12/2026 07/12/2021 DTaP/Tdap/Td Vaccines (2 - Td or Tdap) 02/19/2029 02/19/2019 Lipid Panel 04/26/2029 04/26/2024, 09/0 12/2022, 06/21/2021 Colonoscopy 03/18/2034 03/18/2024 Colorectal Cancer Screening 03/18/2034 RSV Patients and Patients Aged 60 years or older (1 - 1-dose 75+ series) 2049 Influenza Vaccine Completed 04/10/2024, , 06/14/2022, Additional history exists Pneumococcal Vaccine: 50+ Years Completed 11/04/2024, 08/01/2016 Zoster Vaccines Completed 11/04/2024, 08/20/2024 HIB Vaccines Aged Out No longer eligi [...] EDT Narrative 10/01/2024 6:59 PM EDT ? [facility] ?[address] ?[place] [address] ? Magnetic Resonance Report ? Signed ? Patient: Traci Dahl ?MR#: [id number] ?? [id number] ? : 1975 ?Acct:[id number] ? Age/Sex: 49 / F ?ADM Date: 10/01/24 ? Loc: HO.MRI ? Attending Dr: Xi Johnson ? Ordering Physician: Xi Johnson ?? Date of Service: 10/01/24 ?? Procedure(s): MR lumbar spine wo con ?? Accession Number(s): [id number] ? cc: Xi Johnson; Name,Morales RAMSEY ? CLINICAL HISTORY: slipped disc only ls [...] by Malik Mitchell MD in OV> ? 10/01/241858 ? DD/ 56 ? TD/TT: 10/01/241856 ? Weather Strip Mechanic: ? Procedure Note Donotuseinterpreter, Image - 10/01/[address] [address] Magnetic Resonance Report Signed Patient: Traci DahlMR#: [id number] : 1975Acct:[id number] Age/Sex: 49 / FADM Date: 10/01/24 Loc: HO.MRI Attending Dr: Xi Johnson Ordering Physician: Xi Johnson Date of Service: 10/01/24 Procedure(s): MR lumbar spine wo con Accession Number(s): [id number] cc: Xi Johnson; Name,Morales RAMSEY CLINICAL HISTORY: [...] in OV> 10/01/241858 DD/ 56 TD/TT: 10/01/241856 Weather Strip Mechanic: Xi Johnson PHONE BANKER IMG MRI PROCEDURES Edited Resul t - Final * XR Lumbar Spine 2-3 Views (09/24/2024 11:20 AM EDT) Anatomical Region Laterality Modality Spine, L-spine Radiographic Kimi ging 09/24/2024 11:2 0 AM EDT Narrative 09/24/2024 11:52 AM EDT ? [facility] ?[address] ?[place] [address] ?XRay Report ? Signed ? Patient: Traci Dahl ?MR#: [id number] ?? [id number] ? : 1975 ?Acct:[id number] ? Age/Sex: 49 / F ?ADM Date: 09/24/24 ? Loc: HO.ED ? Attending Dr: ? Ordering Physician: Frida Gong ?? Date of Service: 09/24/24 ?? Procedure(s): XR lumbar spine 2-3V ?? Accession Number(s): [id number] ? cc: Frida Gong; Name,Morales RAMSEY ? [...] DD/ 1120 ? TD/TT: 09/24/24 1129 ? Weather Strip Mechanic: ? Procedure Note Donotuseinterpreter, Image - 09/24/[address] [address] XRay Report Signed Patient: Traci DahlMR#: [id number] : 1975Acct:[id number] Age/Sex: 49 / FADM Date: 09/24/24 Loc: HO.ED Attending Dr: Ordering Physician: Frida Gong Date of Service: 09/24/24 Procedure(s): XR lumbar spine 2-3V Accession Number(s): [id number] cc: Frida Gong; Name,Morales RAMSEY EXAMINATION: XR [...] 09/24/24 1149 DD/ 1120 TD/TT: 09/24/24 1129 Weather Strip Mechanic: us [facility] External Provider IMG XR PROCEDURES Final Result * MR Shoulder w/o Contrast Right (09/11/2024 2:40 PM EST) Anatomical Region Laterality Modality Upper Extremities, Shoulder Right Magn etic Resonance 09/11/2024 2:4 0 PM EST Narrative 09/11/2024 2:42 PM EST ? [facility] ?[address] ?[place] [address] ? Magnetic Resonance Report ? Signed ? Patient: Traci Dahl ?MR#: [id number] ?? [id number] ? : 1975 ?Acct:[id number] ? Age/Sex: 49 / F ?ADM Date: 09/09/24 ? Loc: HO.MRI ? Attending Dr: Best Sierra MD ? Ordering Physician: Best Sierra MD ?? Date of Service: 09/09/24 ?? Procedure(s): MR shoulder RT wo con ?? Accession Number(s): [id number] ? cc: Name,Morales RAMSEY; Best Sierra MD [...] DD/ 1440 ? TD/TT: 09/11/24 1440 ? Weather Strip Mechanic: ? Procedure Note Diana, Image - 09/11/2024 [place] [address] Magnetic Resonance Report Signed Patient: Traci DahlMR#: [id number] : 1975Acct:[id number] Age/Sex: 49 / FADM Date: 09/09/24 Loc: HO.MRI Attending Dr: Best Sierra MD Ordering Physician: Best Sierra MD Date of Service: 09/09/24 Procedure(s): MR shoulder RT wo con Accession Number(s): [id number] cc: Morales Ly MD; Best Sierra MD [...] 09/11/24 1442 DD/ 1440 TD/TT: 09/11/24 1440 Weather Strip Mechanic: [facility] External Provider IMG MRI PROCEDURES Edited Result - Final * XR Fingers 2+ Views Right (09/10/2024 9:28 AM EST) Anatomical Region Laterality Modality Upper Extremities, Fingers Right Radio graphic Imaging 09/10/2024 9:28 AM EST Narrative 09/10/2024 10:05 AM EST ?[facility] ?[address] ?[place], [place] [address] ?XRay Report ? Signed ? Patient: Traci Dahl ?MR#: [id number] ?? [id number] ? : 1975 ?Acct:[id number] ? Age/Sex: 49 / F ?ADM Date: 09/10/24 ? Loc: HO.HHCX ? Attending Dr: Denny Bocanegra MD ? Ordering Physician: DENNY BOCANEGRA MD ?? Date of Service: 09/10/24 ?? Procedure(s): XR finger RT min 2V ?? Accession Number(s): [id number] ? cc: DENNY BOCANEGRA MD ? EXAMINATION: [...] DD/ 0928 ? TD/TT: 09/10/24 0950 ? Weather Strip Mechanic: ? Procedure Note Nikki Ortiz - 09/10/2024 [facility] [address] [place] [address] XRay Report Signed Patient: Traci DahlMR#: [id number] : 1975Acct:[id number] Age/Sex: 49 / FADM Date: 09/10/24 Loc: HO.HHCX Attending Dr: Denny Bocanegra MD Ordering Physician: DENNY BOCANEGRA MD Date of Service: 09/10/24 Procedure(s): XR finger RT min 2V Accession Number(s): [id number] cc: DENNY BOCANEGRA MD EXAMINATION: XR FINGER, [...] 09/10/24 1002 DD/ 0928 TD/TT: 09/10/24 0950 Weather Strip Mechanic: Denny Bocanegra MD IMG XR PROCEDURES Final Result * XR Elbow 3+ Views Left (09/10/2024 9:28 AM EST) Anatomical Region Laterality Modality Upper Extremities, Elbow Left Radiogr aphic Imaging 09/10/2024 9:28 AM EST Narrative 09/10/2024 10:05 AM EST ?[facility] ?[address] ?[place] [address] ?XRay Report ? Signed ? Patient: Lara Ortega,Traci ?MR#: [id number] ?? [id number] ? : 1975 ?Acct:[id number] ? Age/Sex: 49 / F ?ADM Date: 03/04/25 ? Loc: HO.HHCX ? Attending Dr: Denny Bocanegra MD ? Ordering Physician: DENNY BOCANEGRA MD ?? Date of Service: 09/10/24 ?? Procedure(s): XR elbow LT min 3V ?? Accession Number(s): [id number] ? cc: DENNY BOCANEGRA MD ? EXAMINATION: [...] DD/ 0928 ? TD/TT: 09/10/24 0950 ? Weather Strip Mechanic: ? Procedure Note Diana, Nikki - 09/10/2024 [place] [address] XRay Report Signed Patient: Traci DahlMR#: [id number] : 1975Acct:[id number] Age/Sex: 49 / FADM Date: 09/10/24 Loc: HO.HHCX Attending Dr: Denny Bocanegra MD Ordering Physician: DENNY BOCANEGRA MD Date of Service: 09/10/24 Procedure(s): XR elbow LT min 3V Accession Number(s): [id number] cc: DENNY BOCANEGRA MD EXAMINATION: XR ELBOW, [...] 09/10/24 1003 DD/ 0928 TD/TT: 09/10/24 0950 Weather Strip Mechanic: us Denny Bocanegra MD IMG XR PROCEDURES Final Result * XR Shoulder 2+ Views Right (08/19/2024 9:25 AM EST) Anatomical Region Laterality Modality Upper Extremities, Shoulder Right Radi ographic Imaging 08/19/2024 9:25 AM EST Narrative 08/19/2024 9:56 AM EST ?[facility] ?[address] ?[place] [address] ?XRay Report ? Signed ? Patient: Traci Dahl ?MR#: [id number] ?? [id number] ? : 1975 ?Acct:[id number] ? Age/Sex: 49 / F ?ADM Date: 08/19/24 ? Loc: HO.HHCX ? Attending Dr: Denny Bocanegra MD ? Ordering Physician: DENNY BOCANEGRA MD ?? Date of Service: 08/19/24 ?? Procedure(s): XR shoulder RT min 2V ?? Accession Number(s): [id number] ? cc: DENNY BOCANEGRA MD ? EXAMINATION: [...] OV> ?08/19/2454 ? DD/ 4 ? TD/TT: 08/19/2449 ? Weather Strip Mechanic: ? Procedure Note Donotsantosinterpreter, Image - 08/19/2024 [facility] [address] [place] [address] XRay Report Signed Patient: Traci DahlMR#: [id number] : 1975Acct:[id number] Age/Sex: 49 / FADM Date: 08/19/24 Loc: HO.HHCX Attending Dr: Denny Bocanegra MD Ordering Physician: DENNY BOCANEGRA MD Date of Service: 08/19/24 Procedure(s): XR shoulder RT min 2V Accession Number(s): [id number] cc: DENNY BOCANEGRA MD EXAMINATION: XR SHOULDER [...] in OV> 08/19/24953 DD/ 4 TD/TT: 08/19/24948 Weather Strip Mechanic: Denny Bocanegra MD IMG XR PROCEDURES Edited Result - Final * Hemoglobin A1c (04/26/2024 8:28 AM EDT) Hemoglobin A1c 4.9 <6.0 % [facility] Comment:Hemoglobin A1C Refer ence Range Adults: 4.8 - 6.0 % Non diabetic: < 6.0 % Goal: < 7.0 %Additional Action Suggested: > 8.0 %Note: Hemoglobin A1c results are invalid for patients with abnormal amounts of HbF. Blood transfusions may impact the HbA1c concentration in the patient sample. Estimated Average Glucose 94 mg/dL [facility] Comment:eAG = Estimated ave rage glucose which is %A1C expressed asaverage glucose, using the formula of the P3E-HdhkbhuZaqfcce Glucose study (ADAG), Diabetes Care, Vol.31,#8,2007 04/26/2024 8:28 AM EDT 04/26/2024 8:28 AM EDT us Generic External Data Provider LAB BLOOD ORDERAB LES Final Result [facility] [address] [place] [phone] * (ABNORMAL) Lipid Panel, Standard (04/26/2024 8:28 AM EDT) Triglycerides 80 <150 mg/dL [facility] Comment:Desirable Triglyceri de: less than 150 mg/dLBorderline High Triglyceride 150-199 mg/dLHigh Triglyceride: 200-499 mg/dLVery High Triglyceride: greater than or equal to 5OO mg/dL Cholesterol 186 <200 mg/dL [facility] Comment:Desirable Cholestero l: less than 200 mg/dLBorderline High Cholesterol: 200-239 mg/dLHigh Cholesterol: greater than 239 mg/dL LDL Cholesterol Calculated 120(H) <100 mg/dL [facility] Comment:Desirable LDL: less than 100 mg/dLNear Optimal/Above Optimal LDL: 110- 129 mg/dLBorderline High LDL: 130-159 mg/dLHigh LDL: 160-189 mg/dLVery High LDL: greater than or equal to 190 mg/dL HDL Cholesterol 50 >40 mg/dL [facility] Comment:Desirable HDL: great er than 40 mg/dL Note: This HDL assay may give artificially low results in patients with liver disease. 04/26/2024 8:28 AM EDT 04/26/2024 8:28 AM EDT us Generic External Data Provider LAB BLOOD ORDERAB LES Final Result [facility] [address] [facility] [place] [address] [phone] * Hm Colonoscopy (03/18/2024) Colonoscopy Normal Normal 03/18/2024 us Morales Name MD HEALTH MAINTENANCE Final Result * BI Mammogram Screening Tomosynthesis Bilateral (10/11/2022 12:03 PM EDT) Anatomical Region Laterality Modality Breast Bilateral Mammography 10/11/2022 12:0 3 PM EDT Narrative 10/12/2022 5:03 PM EDT ? [facility] ? [address] ?[place] [address] ? Mammography Report ? Signed ? Patient: Traci Dahl ?MR#: [id number] ?? [id number] ? : 1975 ?Acct:[id number] ? Age/Sex: 47 / F ?ADM Date: // ? Loc: HO.MAMMO ? Attending Dr: Celso Galo CNM ? Ordering Physician: CELSO GALO CNM ?Results: 1 ?? Negative ? Date of Service: // ?Follow Up: 1 Year From Orig ?? inal Mammogram ? Procedure(s): MM tomosynthesis screening BI ?? Accession Number(s): [id number] ? cc: CELSO GALO CNM ? EXAMINATION: [...] signed by Keenan Song MD in OV> ?10/12/221699 ? DD/ 02 ? TD/TT: ? Weather Strip Mechanic: ARRIAGA ? Procedure Note Nikki Ortiz - 10/12/2022 [facility] [address] [place] [address] Mammography Report Signed Patient: Traci DahlMR#: [id number] : 1975Acct:[id number] Age/Sex: 47 / FADM Date: 10/11/22 Loc: HO.MAMMO Attending Dr: Celso Galo CNM Ordering Physician: CELSO GALOesults: 1 Negative Date of Service: 10/11/22Follow Up: 1 Year From Orig inal Mammogram Procedure(s): MM tomosynthesis screening BI Accession Number(s): [id number] cc: CELSO GALO CNM EXAMINATION: MM SCREENING [...] in OV> 10/12/22 1700 DD/ 1203 TD/TT: Weather Strip Mechanic: ARRIAGA [facility] External Provider IMG BI PROCEDURES Final Result * THINPREP TIS PAP AND HPV mRNA E6/E7 WITH REFLEX TO HPV 16,18/45 (07/12/2021 10:33 AM EST) Clinical Information: None given [facility] COMMENT SEE COMMENT [facility] [...] has been evaluated with computer assisted technology. [facility] Money Manager: SEE COMMENT [facility] Comment: YP, CT(ASCP) CT screening location: [address] ??[address] HPV nRNA E6/E7 Not Detected Not Detected [facility] Comment: Methodology: Sheet Metal Contractor-Mediated Amplification This assay detects E6/E7 viral messenger RNA (mRNA) from 14 high-risk HPV types (16,18,31,33,35,39,45,51,52,56,58,59,66,68). ? The analytical performance characteristics of this assay have been determined by [facility] [employer]. The modifications have not been cleared or approved by the FDA. This assay has been validated pursuant to the CLIA regulations and is used for clinical purposes. ?? For additional information, please refer to http://education.Thinktwice/faq/ZRI045r2 (This link if provided for information/ educational purposes only.) Interpretation/Re sult: Negative for intraepithelial lesion or malignancy. [facility] LMP: [id number] [facility] Prev. BX: NONE GIVEN [facility] Prev. PAP: NONE GIVEN [facility] SOURCE: None given [facility] Statement Of Adequacy: SEE COMMENT [facility] Comment: Satisfactory for evaluation. Endocervical/transformation zone component absent. 07/12/2021 10:3 3 AM EST us Celso Galo CNM LAB PATHOLOGY ORDERABLES Final Result [address] from Last 3 Months or Most Recently Relevant to Health Maintenance Insurance [facility] C3 Care Teams Room Clerk Relationship Specialty Start Date End Date Name, MD Morales [address] [place], [place] PCP - General Family Medicine 07/01/21
[2024-11-04 13:26] LABS: Basophils Absolute Auto 0.1 X10*3/uL (0.0-0.2); Basophils Percent Auto 1.1 % (0-2); Eosinophils Absolute Auto 0.1 X10*3/uL (0.0-0.4); Eosinophils Percent Auto 1.9 % (0-4); Hematocrit 39.7 % (37.0-47.0); Hemoglobin 12.8 g/dl (12.0-16.0); Imm Gran Abs Auto 0.02 X10*3/uL (0.00-0.03); Imm Gran Pct Auto 0.4 % (0.0-0.4); Lymphocytes Absolute Auto 1.7 X10*3/uL (1.2-4.9); Lymphocytes Percent Auto 31.6 % (20-40); Mean Corpuscular HGB Conc 32.2 g/dl (31.0-35.0); Mean Corpuscular Hemoglobin 28.3 pg (27.0-33.0); Mean Corpuscular Volume 87.6 fL (80.0-98.0); Mean Platelet Volume 9.6 fL (9.4-12.3); Monocytes Absolute Auto 0.4 X10*3/uL (0.1-1.2); Monocytes Percent Auto 6.8 % (2-11); Neutrophils Absolute Auto 3.1 x10*3/uL (2.0-8.3); Neutrophils Percent Auto 58.2 % (45-73); Platelet Count 340 X10*3/uL (160-400); Red Blood Count 4.53 X10*6/uL (4.20-5.50); Red Cell Distribution Width 13.4 % (11.0-16.0); White Blood Count 5.3 X10*3/uL (4.8-10.8)
[2024-11-04 13:37] LABS: Iron 78 mcg/dL (30-160); Percent Iron Saturation 26 % (15-50); Total Iron Binding Capacity 305 mcg/dL (228-428); Unsaturated Iron Binding 227 ug/dL
[2024-11-04 13:54] LABS: Ferritin 17 ng/mL (10-250)
== END 2024-11-04 11:09 | disposition home or self-care (01) ==
LOC: HO.HHCL 11:08
PROVIDERS: Visit Provider Internal Medicine Geriatric Medicine
DX: D50.9 Iron deficiency anemia, unspecified (principal)
CPT/HCPCS: 36415; 82728; 83540; 85025

== ENCOUNTER 2024-11-06 09:31 | Outpatient (AMB) | payer MEDICAID, SELFPAY ==
--- NOTE | 2024-11-06 09:34 | MHC.OFFVIS ---
Vital Signs 11/06/24 09:45 Height 5 ft 4 in Weight 220 lb BMI 37.8 Intake Visit Reasons: Newprob-Left elbow pain raiding to wrist Intake Note: Traci is a 49 year old right hand dominant male who presents today for a new problem visit for her left elbow pain that is radiating into her left wrist. Denies injury. Patient reports that she has had pain in the left elbow for about a year now but it has worsened in the last few months. She has increased pain with extension and with lifting. Her pain is describes this pain as a burning sensation that is worse when touching. She denies numbness and tingling. She takes Tylenol for her pain , she is unablt to take most NSAIDs as they cause rash. Advertising Account Manager Required: Yes Advertising Account Manager Language: Supervisor [employer] Name: Bonifacio Suarez [id number] Allergies ibuprofen [From Motrin] Allergy (Intermediate, Verified 11/13/24 14:13) Rash naproxen [Naprosyn] Allergy (Intermediate, Verified 11/13/24 14:13) Rash prednisone [PREDNISONE] Allergy (Intermediate, Verified 11/13/24 14:13) RASH, itching aspirin [ASA] Allergy (Verified 11/13/24 14:13) Rash HPI HPI Newprob-Left elbow pain raiding to wrist: Details: Traci is a 49 year old right hand dominant male who presents today for a new problem visit for her left elbow pain that is radiating into her left wrist. Denies injury. Patient reports that she has had pain in the left elbow for about a year now but it has worsened in the last few months. She has increased pain with extension and with lifting. Her pain is describes this pain as a burning sensation that is worse when touching. She denies numbness and tingling. She takes Tylenol for her pain , she is unablt to take most NSAIDs as they cause rash. [facility] Medical History Pre-diabetes GERD (gastroesophageal reflux disease) Hiatal hernia HTN (hypertension) Vitamin deficiency Fatigue Diaphragmatic hernia Dyspareunia in female Heavy menstrual bleeding Vitamin B1 deficiency Prediabetes Obstructive sleep apnea treated with continuous positive airway pressure (CPAP) Asthma Acid reflux Umbilical hernia Surgical History S/P laparoscopic sleeve gastrectomy History of delivery History of endoscopy History of umbilical hernia repair (10/06/17) History of cholecystectomy History of tubal ligation Family History Father No problems noted. Mother Diabetes Hypertension FH: mental illness Maternal Grandmother Hypertension Maternal Uncle Cancer Leukemia Family/Other FH: mental illness Son No problems noted. Son Asthma Glaucoma Son No problems noted. Sister FH: mental illness High cholesterol Brother High cholesterol Social History (Updated 11/13/24 @ 14:13 by Araceli Marie) Household Members: Spouse and Other Household Members Other:: mother Housing: Apartment Are you a primary senior care manager to a significant other at home: Yes Do you presently have visiting nurse or other home services: No Alcohol intake: never Patient Tobacco Use Status: Never used Tobacco Second Hand Smoke Exposure: No Use of substances other than those prescribed or required for medical reasons: No Have you been hit, kicked, punched, or otherwise hurt by someone within the past year? 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 Neuro: Normal sensation of the tips of all digits of the left hand at this time Vascular: Cap refill brisk Pain: Tenderness to palpation of the medial epicondyle of the left elbow Pain with range of motion of the elbow in the medial epicondyle Positive reverse Cozen's Negative Cozen's ROM: Full range of motion of left elbow, but painful when doing so Skin: No lacerations or abrasions. General: No ecchymosis, erythema, or evidence of infection. Psych: Appears grossly normal Affect normal Attitude cooperative Assessment & Plan Assessment & Plan (1) Medial epicondylitis of left elbow: Code(s): M77.02 - Medial epicondylitis, left elbow Category: Medical Plan 1. Medial epicondylitis of the left elbow Patient is educated about this condition Patient is educated about the treatment options available Patient is referred to occupational therapy for range of motion and strengthening of the left elbow and wrist in the setting of medial epicondylitis Patient is amenable to this plan Follow-up as needed with any acute concerns Orders: Orders OT Evaluation and Treatment 11/06/24 M77.02 - Medial epicondylitis, left elbow Coding Level of Care Code Est Pt Level 3 (36402) Diagnoses Medial epicondylitis of left elbow M77.02
[2024-11-06 09:45] VITALS: BMI 37.8
--- OUTSIDE RECORDS SUMMARY | 2024-11-06 10:15 | XMS_ITS | Clinical Summary ---
Author Organization [employer] Address [address] [facility] 7t [place] [address] Care Team Providers Care Shark Biologist Name Role Phone Name, Morales RAMSEY Primary Care Provider [phone] Allergies Active Allergy Reactions Criticality Noted Date [...] Patient to reach out to [facility] team as needed, Patient to engage in OP therapy , and Patient to reach out to [facility] as needed S/P laparoscopic sleeve gastrectomy 08/12/2022 Overview (08/12/2022): Dr. Ortiz, [facility], 07/2022 Chronic low back pain 06/18/2022 Dysmenorrhea 06/18/2022 Esophageal dysphagia 06/18/2022 Hypertensive disorder 06/18/2022 Lower esophageal ring 06/18/2022 Morbid obesity 06/18/2022 Pain in pelvis 06/18/2022 Umbilical hernia 06/18/2022 Prediabetes 08/23/2021 Encounters Date Type Department Care Team Description 11/04/2024 10:45 AM EDT Office Visit [facility] [address] [place] [address] Morales Ly MD Iron deficiency anemia, unspecified iron deficiency anemia type (Primary Dx); Menorrhagia with irregular cycle; History of GI bleed; Migraine without aura and without status migrainosus, not intractable; Seasonal allergies; Seborrheic keratosis; Chronic right-sided low back pain, unspecified whether sciatica present 11/04/2024 Travel 11/01/2024 Patient Outreach [facility]ED[facility] [address] [place] [address] Morales Ly MD 11/01/2024 Telephone [facility]ICINE [address] [place] [address] Morales yL MD CHART PREP 11/01/2024 Patient Outreach [facility] [address] [place] [address] Morales Ly MD 10/31/2024 Patient Outreach [facility] [address] [place] [address] Morales Ly MD 10/31/2024 Patient Outreach [facility] [address] [place] [address] Morales Ly MD Care Coordination (C3/CM F/U) 10/24/2024 Patient Outreach [address] [address] Morales Ly MD 10/14/2024 Telephone [facility] [address] [place] [address] Morales Ly MD Care Coordination ([facility] referral) 10/14/2024 Plan of Care Documentation [address] [address] 10/14/2024 Patient Outreach [facility] [address] [place] [address] Morales Ly MD Care Coordination ([facility] initial assessment/ enrollment) 10/11/2024 Patient Outreach [address] [address] Morales Ly MD Care Coordination (Outreach) 10/02/[address] [address] Morales Ly MD Results 09/27/2024 11:15 AM EDT Office Visit [address] [address] Xi Johnson NP Lumbar radiculopathy (Primary Dx) 09/27/2024 Travel 09/25/2024 Patient Outreach [address] [address] oMrales Ly MD 09/25/2024 Patient Outreach [address] [address] Morales Ly MD Care Coordination (C3/CM Outreach) 09/25/[address] [address] Morales Ly MD Nurse Triage; ER Follow-up 09/25/2024 Patient Outreach [address] [address] Morales Ly MD 09/25/2024 Patient Outreach [address] [address] Morales Ly MD Care Coordiantion 09/25/2024 Patient Outreach [facility] [address] [place] [address] Morales Ly MD Care Coordination ([facility] Chart review) 09/25/2024 Patient Outreach [facility] [address] [place] [address] Name, MD Morales 09/24/2024 10:00 AM EDT Office Visit [facility] [place] [address] [place] [address] Denny Bocanegra MD Acute bilateral low back pain with right-sided sciatica (Primary Dx); Hypertension, unspecified type 09/20/2024 Population Health Risk Score [facility] (C3) Department [address] [place] [phone] Provider, Population Health Generic 09/10/2024 9:00 AM EST Office Visit [facility] [place] [address] [place] [address] Denny Bocanegra MD Left elbow pain (Primary Dx); Elbow injury, left, initial encounter; Finger pain, right 09/09/2024 Orders Only [facility] External Provider, [facility] from Last 3 Months Immunizations Name [...] Procedure Name Priority Date/Time Associated Diagnosis Comments FERRITIN Routine 11/04/2024 11:11 AM EDT Iron deficiency anemia, unspecified iron deficiency anemia type IRON AND TOTAL IRON BINDING CAPACITY Routine 11/04/2024 11:11 AM EDT Iron deficiency anemia, unspecified iron deficiency anemia type CBC WITH AUTO DIFFERENTIAL Routine 11/04/2024 11:10 AM EDT Iron deficiency anemia, unspecified iron deficiency anemia type MR LUMBAR SPINE WO CONTRAST Routine 10/01/2024 [...] Recently Relevant to Health Maintenance Results * Iron And Total Iron Binding Capacity (11/04/2024 11:11 AM EDT) Iron 78 30 - 160 mcg/dL [facility] Total Iron Binding Capacity 305 228 - 428 mcg/dL [facility] Percent Iron Saturation 26 15 - 50 % [facility] Unsaturated Iron Binding 227 ug/dL [facility] Blood Venous blood specimen / Unknown 11/04/2024 11:11 AM EDT 11/04/2024 1:07 PM EDT us Morales Ly MD LAB BLOOD ORDERABLES Final Resul t Performing Organization Address [facility]/ZIP Co de Phone Number [facility] [address] [place] [phone] * Ferritin (11/04/2024 11:11 AM EDT) Ferritin 17 10 - 250 ng/mL [facility] Blood Venous blood specimen / Unknown 11/04/2024 11:11 AM EDT 11/04/2024 1:07 PM EDT us Morales Ly MD LAB BLOOD ORDERABLES Final Resul t [facility] [address] [place] [address] [phone] * CBC auto differential (11/04/2024 11:10 AM EDT) White Blood Count 5.3 4.8 - 10.8 X10*3/uL [facility] Red Blood Count 4.53 4.20 - 5.50 X10*6/uL [facility] Hemoglobin 12.8 12.0 - 16.0 g/dl [facility] Hematocrit 39.7 37.0 - 47.0 % [facility] Mean Corpuscular Volume 87.6 80.0 - 98.0 fL [facility] Mean Corpuscular Hemoglobin 28.3 27.0 - 33.0 pg [facility] Mean Corpuscular HGB Conc 32.2 31.0 - 35.0 g/dl [facility] Red Cell Distribution Width 13.4 11.0 - 16.0 % [facility] Platelet Count 340 160 - 400 X10*3/uL [facility] Mean Platelet Volume 9.6 9.4 - 12.3 fL [facility] Neutrophils Percent Auto 58.2 45 - 73 % [facility] Imm Gran Pct Auto 0.4 0.0 - 0.4 % [facility] Lymphocytes Percent Auto 31.6 20 - 40 % [facility] Monocytes Percent Auto 6.8 2 - 11 % [facility] Eosinophils Percent Auto 1.9 0 - 4 % [facility] Basophils Percent Auto 1.1 0 - 2 % [facility] NRBC Pct Auto 0.0 0.0 - 0.2 /100WBC [facility] Neutrophils Absolute Auto 3.1 2.0 - 8.3 x10*3/uL [facility] Imm Gran Abs Auto 0.02 0.00 - 0.03 X10*3/uL [facility] Lymphocytes Absolute Auto 1.7 1.2 - 4.9 X10*3/uL [facility] Monocytes Absolute Auto 0.4 0.1 - 1.2 X10*3/uL [facility] Eosinophils Absolute Auto 0.1 0.0 - 0.4 X10*3/uL [facility] Basophils Absolute Auto 0.1 0.0 - 0.2 X10*3/uL [facility] NRBC Abs Auto 0.000 0.0 - 0.012 X10*3/uL [facility] Blood Venous blood specimen / Unknown 11/04/2024 11:10 AM EDT 11/04/2024 1:07 PM EDT us Morales Name MD LAB BLOOD ORDERABLES Final Resul t [facility] [address] [place] [phone] [phone] * MR Lumbar Spine w/o Contrast (10/01/2024 6:57 PM EDT) Anatomical Region Laterality Modality Spine, L-spine Magnetic Resonan ce 10/01/2024 6:57 PM EDT Narrative 10/01/2024 6:59 PM EDT ? [facility] ?[address] ?[place] [address] ? Magnetic Resonance Report ? Signed ? Patient: Traci Dahl ?MR#: [id number] ?? [id number] ? : 1975 ?Acct:[id number] ? Age/Sex: 49 / F ?ADM Date: 10/01/24 ? Loc: HO.MRI ? Attending : Xi Johnson ? Ordering Physician: Xi Johnson ?? Date of Service: 10/01/24 ?? Procedure(s): MR lumbar spine wo con ?? Accession Number(s): [id number] ? cc: Xi Johnson; NameMorales MD ? [...] ? DD/ 56 ? TD/TT: 10/01/241856 ? [employer]: ? Procedure Note Donrudolphter, Image - 10/01/2024 [place] [address] Magnetic Resonance Report Signed Patient: Traci DahlMR#: [id number] : 1975Acct:[id number] Age/Sex: 49 / FADM Date: 10/01/24 Loc: HO.MRI Attending Dr: Xi Johnson Ordering Physician: Xi Johnson Date of Service: 10/01/24 Procedure(s): MR lumbar spine wo con Accession Number(s): [id number] cc: Xi Johnson; Name,Morales RAMSEY CLINICAL HISTORY: [...] in OV> 10/01/241858 DD/ 56 TD/TT: 10/01/241856 [employer]: us Xi Johnson MAIL HANDLERS SUPERVISOR IMG MRI PROCEDURES Edited Resul t - Final * XR Lumbar Spine 2-3 Views (09/24/2024 11:20 AM EDT) Anatomical Region Laterality Modality Spine, L-spine Radiographic Kimi ging 09/24/2024 11:2 0 AM EDT Narrative 09/24/2024 11:52 AM EDT ? [facility] ?[address] ?[place] [address] ?XRay Report ? Signed ? Patient: Traci Dahl ?MR#: [id number] ?? [id number] ? : 1975 ?Acct:[id number] ? Age/Sex: 49 / F ?ADM Date: 09/24/24 ? Loc: HO.ED ? Attending Dr: ? Ordering Physician: Frida Gong ?? Date of Service: 09/24/24 ?? Procedure(s): XR lumbar spine 2-3V ?? Accession Number(s): [id number] ? cc: Frida Gong; Name,Morales RAMSEY ? [...] signed by Jamarcus Lacy MD in OV> ?09/24/249 ? DD/ 1120 ? TD/TT: 09/24/24 1129 ? [employer]: ? Procedure Note Donrudolphter, Image - 09/24/2024 [place] [address] XRay Report Signed Patient: Traci DahlMR#: [id number] : 1975Acct:[id number] Age/Sex: 49 / FADM Date: 09/24/24 Loc: HO.ED Attending Dr: Ordering Physician: Frida Gong Date of Service: 09/24/24 Procedure(s): XR lumbar spine 2-3V Accession Number(s): [id number] cc: Frida Gong; Name,Morales RAMSEY EXAMINATION: XR [...] Jamarcus Lacy MD 09/24/2024 11:49 AM EDT RP Dictated By: Jamarcus Lacy MD Signed By: <Electronically signed by Jamarcus Lacy MD in OV> 09/24/24 1149 DD/ 1120 TD/TT: 09/24/24 1129 [employer]: [facility] External Provider IMG XR PROCEDURES Final Result * MR Shoulder w/o Contrast Right (09/11/2024 2:40 PM EST) Anatomical Region Laterality Modality Upper Extremities, Shoulder Right Magn etic Resonance 09/11/2024 2:40 PM EST Narrative 09/11/2024 2:42 PM EST ? [facility] ?[address] ?[place] [address] ? Magnetic Resonance Report ? Signed ? Patient: Traci Dahl ?MR#: [id number] ?? [id number] ? : 1975 ?Acct:[id number] ? Age/Sex: 49 / F ?ADM Date: 09/09/24 ? Loc: HO.MRI ? Attending Dr: Best Sierra MD ? Ordering Physician: Best Sierra MD ?? Date of Service: 09/09/24 ?? Procedure(s): MR shoulder RT wo con ?? Accession Number(s): [id number] ? cc: NameMorales MD; Best Sierra MD ? CLINICAL HISTORY: M25.311 [...] DD/ 1440 ? TD/TT: 09/11/24 1440 ? [employer]: ? Procedure Note Nikki Ortiz - 09/11/[address] [address] Magnetic Resonance Report Signed Patient: Traci Dahl#: [id number] : 1975Acct:[id number] Age/Sex: 49 / FADM Date: 09/09/24 Loc: HO.MRI Attending Dr: Best Sierra MD Ordering Physician: Best Sierra MD Date of Service: 09/09/24 Procedure(s): MR shoulder RT wo con Accession Number(s): [id number] cc: Name,Morales RAMSEY; Best Sierra MD CLINICAL [...] 09/11/24 1442 DD/ 1440 TD/TT: 09/11/24 1440 [employer]: us [facility] External Provider IMG MRI PROCEDURES Edited Result - Final * XR Fingers 2+ Views Right (09/10/2024 9:28 AM EST) Anatomical Region Laterality Modality Upper Extremities, Fingers Right Radio graphic Imaging 09/10/2024 9:2 8 AM EST Narrative 09/10/2024 10:05 AM EST ?[facility] ?[address] ?[place], [place] [address] ?XRay Report ? Signed ? Patient: Traci Dahl ?MR#: [id number] ?? [id number] ? : 1975 ?Acct:[id number] ? Age/Sex: 49 / F ?ADM Date: 09/10/24 ? Loc: HO.HHCX ? Attending Dr: Denny Bocanegra MD ? Ordering Physician: DENNY BOCANEGRA MD ?? Date of Service: 09/10/24 ?? Procedure(s): XR finger RT min 2V ?? Accession Number(s): [id number] ? cc: DENNY BOCANEGRA MD ? EXAMINATION: [...] in OV> ? 09/10/24 1002 ? DD/ 7 ? TD/TT: 09/10/24 0950 ? [employer]: ? Procedure Note Diana, Image - 09/10/[address] [address] XRay Report Signed Patient: Traci DahlMR#: [id number] : 1975Acct:[id number] Age/Sex: 49 / FADM Date: 09/10/24 Loc: HO.HHCX Attending Dr: Denny Bocanegra MD Ordering Physician: DENNY BOCANEGRA MD Date of Service: 09/10/24 Procedure(s): XR finger RT min 2V Accession Number(s): [id number] cc: DENNY BOCANEGRA MD EXAMINATION: XR FINGER, [...] OV> 09/10/24 1002 DD/ TD/TT: 09/10/24 0950 Str[employer] Wire: Denny Bocanegra MD IMG XR PROCEDURES Final Result * XR Elbow 3+ Views Left (09/10/2024 9:28 AM EST) Anatomical Region Laterality Modality Upper Extremities, Elbow Left Radiogr aphic Imaging 09/10/2024 9:28 AM EST Narrative 09/10/2024 10:05 AM EST ?[facility] ?[address] ?[place] [address] ?XRay Report ? Signed ? Patient: Lara Traci Ortega ?MR#: [id number] ?? [id number] ? : 1975 ?Acct:[id number] ? Age/Sex: 49 / F ?ADM Date: 09/10/24 ? Loc: HO.HHCX ? Attending Dr: Denny Bocanegra MD ? Ordering Physician: DENNY BOCANEGRA MD ?? Date of Service: 09/10/24 ?? Procedure(s): XR elbow LT min 3V ?? Accession Number(s): [id number] ? cc: DENNY BOCANEGRA MD ? EXAMINATION: [...] DD/ 0928 ? TD/TT: 09/10/24 0950 ? [employer]: ? Procedure Note Diana, Image - 09/10/[address] [address] XRay Report Signed Patient: Traci DahlMR#: [id number] : 1975Acct:[id number] Age/Sex: 49 / FADM Date: 09/10/24 Loc: .HHCX Attending Dr: Denny Bocanegra MD Ordering Physician: DENNY BOCANEGRA MD Date of Service: 09/10/24 Procedure(s): XR elbow LT min 3V Accession Number(s): [id number] cc: DENNY BOCANEGRA MD EXAMINATION: XR ELBOW, [...] 09/10/24 1003 DD/ 0928 TD/TT: 09/10/24 0950 Str[employer]: Denny Bocanegra MD IMG XR PROCEDURES Final Result * XR Shoulder 2+ Views Right (08/19/2024 9:25 AM EST) Anatomical Region Laterality Modality Upper Extremities, Shoulder Right Radi ographic Imaging 08/19/2024 9:25 AM EST Narrative 08/19/2024 9:56 AM EST ?[facility] ?[address] ?[place] [address] ?XRay Report ? Signed ? Patient: Lara Traci Ortega ?MR#: [id number] ?? [id number] ? : 1975 ?Acct:[id number] ? Age/Sex: 49 / F ?ADM Date: 02/10/25 ? Loc: HO.HHCX ? Attending Dr: Denny Bocanegra MD ? Ordering Physician: DENNY BOCANEGRA MD ?? Date of Service: 08/19/24 ?? Procedure(s): XR shoulder RT min 2V ?? Accession Number(s): [id number] ? cc: DENNY BOCANEGRA MD ? EXAMINATION: [...] ? DD/ 4 ? TD/TT: 08/19/[address] ? Str[employer]: ? Procedure Note Donjeremy, Image - 08/19/2024 [place] [address] XRay Report Signed Patient: Traci DahlMR#: [id number] : 1975Acct:[id number] Age/Sex: 49 / FADM Date: 08/19/24 Loc: HO.HHCX Attending Dr: Denny Bocanegra MD Ordering Physician: DENNY BOCANEGRA MD Date of Service: 08/19/24 Procedure(s): XR shoulder RT min 2V Accession Number(s): [id number] cc: DENNY BOCANEGRA MD EXAMINATION: XR SHOULDER [...] in OV> 08/19/2454 DD/ 4 TD/TT: 08/19/[address] Str[employer] Wire: Denny Bocanegra MD IMG XR PROCEDURES Edited Result - Final * Hemoglobin A1c (04/26/2024 8:28 AM EDT) Hemoglobin A1c 4.9 <6.0 % [facility] Comment:Hemoglobin A1C Refer ence Range Adults: 4.8 - 6.0 % Non diabetic: < 6.0 % Goal: < 7.0 %Additional Action Suggested: > 8.0 %Note: Hemoglobin A1c results are invalid for patients with abnormal amounts of HbF. Blood transfusions may impact the HbA1c concentration in the patient sample. Estimated Average Glucose 94 mg/dL [facility] Comment:eAG = Estimated ave rage glucose which is %A1C expressed asaverage glucose, using the formula of the T8I-ZxtykmpLjbvvga Glucose study (ADAG), Diabetes Care, Vol.31,#8,Feb. 2007 04/26/2024 8:28 AM EDT 04/26/2024 8:28 AM EDT us Generic External Data Provider LAB BLOOD ORDERAB LES Final Result [facility] [address] [place] [phone] * (ABNORMAL) Lipid Panel, Standard (04/26/2024 8:28 AM EDT) Triglycerides 80 <150 mg/dL [facility] Comment:Desirable Triglyceri de: less than 150 mg/dLBorderline High Triglyceride 150-199 mg/dLHigh Triglyceride: 200-499 mg/dLVery High Triglyceride: greater than or equal to 5OO mg/dL Cholesterol 186 <200 mg/dL [facility] Comment:Desirable Cholestero l: less than 200 mg/dLBorderline High Cholesterol: 200-239 mg/dLHigh Cholesterol: greater than 239 mg/dL LDL Cholesterol Calculated 120(H) <100 mg/dL [facility] Comment:Desirable LDL: less than 100 mg/dLNear Optimal/Above Optimal LDL: 110- 129 mg/dLBorderline High LDL: 130-159 mg/dLHigh LDL: 160-189 mg/dLVery High LDL: greater than or equal to 190 mg/dL HDL Cholesterol 50 >40 mg/dL [facility] Comment:Desirable HDL: great er than 40 mg/dL Note: This HDL assay may give artificially low results in patients with liver disease. 04/26/2024 8:28 AM EDT 04/26/2024 8:28 AM EDT us Generic External Data Provider LAB BLOOD ORDERAB LES Final Result [facility] [address] [place] [address] [phone] * Hm Colonoscopy (03/18/2024) Colonoscopy Normal Normal 03/18/2024 Morales Ly MD HEALTH MAINTENANCE Final Result * BI Mammogram Screening Tomosynthesis Bilateral (10/11/2022 12:03 PM EDT) Anatomical Region Laterality Modality Breast Bilateral Mammography 10/11/2022 12:0 3 PM EDT Narrative 10/12/2022 5:03 PM EDT ? [facility] ? [address] ?[place] [address] ? Mammography Report ? Signed ? Patient: Lara Jordan,Traci ?MR#: [id number] ?? [id number] ? : 1975 ?Acct:[id number] ? Age/Sex: 47 / F ?ADM Date: 04/04/23 ? Loc: HO.MAMMO ? Attending : Celso Galo CNM ? Ordering Physician: CELSO GALO CNM ?Results: 1 ?? Negative ? Date of Service: 10/11/22 ?Follow Up: 1 Year From Orig ?? inal Mammogram ? Procedure(s): MM tomosynthesis screening BI ?? Accession Number(s): [id number] ? cc: CELSO GALO CNM ? EXAMINATION: [...] signed by Keenan Song MD in OV> ?10/12/22 1700 ? DD/ 1203 ? TD/TT: ? Str[employer] Wire: ARRIAGA ? Procedure Note Donotuseinterpreter, Image - 10/12/2022 [facility] [address] [place] [address] Mammography Report Signed Patient: Traci DahlMR#: [id number] : 1975Acct:[id number] Age/Sex: 47 / FADM Date: 10/11/22 Loc: HO.MAMMO Attending Dr: Celso Galo CNM Ordering Physician: CELSO GALOesults: 1 Negative Date of Service: 10/11/22Follow Up: 1 Year From Orig inal Mammogram Procedure(s): MM tomosynthesis screening BI Accession Number(s): [id number] cc: CELSO GALO CNM EXAMINATION: MM SCREENING [...] in OV> 10/12/22 1700 DD/ 1203 TD/TT: Strand [employer]uncher Fine Wire: ARRIAGA [facility] External Provider IMG BI PROCEDURES Final Result * THINPREP TIS PAP AND HPV mRNA E6/E7 WITH REFLEX TO HPV 16,18/45 (07/12/2021 10:33 AM EST) Clinical Information: None given [facility] COMMENT SEE COMMENT [facility] [...] has been evaluated with computer assisted technology. [employer] SYSTEM Pick Up Man: SEE COMMENT [facility] Comment: YP, CT(ASCP) CT screening location: [address] ??[address] HPV nRNA E6/E7 Not Detected Not Detected 51fanli Comment: Methodology: Ncr Operator-Mediated Amplification This assay detects E6/E7 viral messenger RNA (mRNA) from 14 high-risk HPV types (16,18,31,33,35,39,45,51,52,56,58,59,66,68). ? The analytical performance characteristics of this assay have been determined by [facility]. The modifications have not been cleared or approved by the FDA. This assay has been validated pursuant to the CLIA regulations and is used for clinical purposes. ?? For additional information, please refer to http://education.CloudCrowd/faq/MBJ737l6 (This link if provided for information/ educational purposes only.) Interpretation/Re sult: Negative for intraepithelial lesion or malignancy. [facility] LMP: 121,321 [facility] Prev. BX: NONE GIVEN [facility] Prev. PAP: NONE GIVEN [facility] ON LAB SYSTEM SOURCE: None given [facility] Statement Of Adequacy: SEE COMMENT [facility] Comment: Satisfactory for evaluation. Endocervical/transformation zone component absent. 07/12/2021 10:3 3 AM EST Celso Galo CNM LAB PATHOLOGY ORDERABLES Final Result [facility] [address] from Last 3 Months or Most Recently Relevant to Health Maintenance Insurance [facility] FULL [facility] C3 Care Teams Shark Biologist Relationship Specialty Start Date End Date Name, MD Morales [address] [place] [address] PCP - General Family Medicine 07/01/21
--- OUTSIDE RECORDS SUMMARY | 2024-11-06 10:15 | XMS_ITS | Clinical Summary ---
Author Organization Formerly [facility] Address [address] [place] [id number] Care Team Providers Care Account Review Specialist Name Role Phone Unavailable Primary Care [...] 2) 2024 Insurance MEDICAID OUT OF STATE [facility] on file
--- OUTSIDE RECORDS SUMMARY | 2024-11-06 10:15 | XMS_ITS | Encounter Summary ---
Author Organization [employer] Address [address] [place] [address] Care Team Providers Care Band Aid Machine Operator Name Role Phone Name, Morales ARMSEY Primary Care Provider [phone] Reason for Visit * Reason Onset Date Comments Hospital Follow-up 03/29/2024 Encounter Details Date Type Department Care Team ([facility] st Contact Info) Description 03/29/2024 Telephone [facility] [address] [place] [address] Name, MD Morales [address] [place] [address] Hospital Follow-up Social History Tobacco Use Types [...] EDT Please obtain in patient notes from [facility] admitted 03/17/24 and transfer to [facility] inpatient with diwscharge date of 03/28/24. Hospital discharge follow up appt booked for 04/05/24 Monica CHISHOLM 2pm * Telephone Encounter - Senia Levine LPN - 03/29/2024 10:40 AM EDT Triage call returned to patient with [employer] [id number]. Patient discharged from [facility] yesterday. Initial admission to [facility] on 03/17/24 transferred to [facility] after 6 days and discharged to home yesterday. is feeling well. Concerned with Insurance coverage.[employer] active as run today. No new symptoms [...] a HDF appt. Hospital: [facility] Date of admission: 03/17/24 Discharge date: 03/28/24 Diagnosed: Abdominal Pain (Albanian Speaker) documented in this encounter Plan of Treatment Not on file documented as of this encounter Visit Diagnoses Not on filedocumented in this encounter Additional Health Concerns Assessment Noted Time PHQ-9 Depression Total Score: 0 12/16/19 23 11:12 AM EDT documented as of this encounter Care Teams Band Aid Machine Operator Relationship Specialty Start Date End Date Name, MD Morales [address] [place] [phone] PCP - General Family Medicine 07/01/21 documented as of this encounter
--- OUTSIDE RECORDS SUMMARY | 2024-11-06 10:16 | XMS_ITS ---
Author Organization [employer] Address [address] [place] [address] 7t [place] [address] Care Team Providers Care Security Flex Utility Officer Name Role Phone Name, Morales RAMSEY Primary Care Provider [phone] CM Complex Status:Enrolled (Active) Start date:09/25/2024 Enrollment date:10/14/2024 Enrollment reason:ADT Feed Overview ED- Pt went to [facility] on 09[facility]. Case Team Name Relationship Phone Yesica Palencia RN Registered Nurse(Responsible S taff) Continued Care and Services Coordination
--- OUTSIDE RECORDS SUMMARY | 2024-11-06 10:16 | XMS_ITS | Clinical Summary ---
Author Organization [facility] [address] Address [address] [place] [phone] Phone Care Team Providers Care Design Teacher Name Role Phone Unavailable Primary Care Provider [...] w/reflexes (Q) (01/29/2024 10:55 AM EDT) Pathologist [facility] HIV Ag/Ab, 4th Generation NON-REACT KIERAN NON-REACT [...] ?? For additional information please refer to http://education.Fourth Wall Studios.Your Practical Solutions/faq/DKW539 (This link is being provided for informational/ educational purposes only.) The performance of this assay has not been clinically validated in patients less than 2 years old. Blood 01/29/2024 10:5 5 AM EDT 01/29/2024 10:56 AM EDT Narrative Resulting Agency Comment Performing Lab: ?Site ID: [id number] ?Name: [facility] ?Address: [address] [place] [phone] ?Director: Guilherme Quinteros M.D. Rachael JANE LAB BLOOD ORDERABLES F inal Result Performing Organization Address [facility] Co de Phone Number [facility] [address] * Hepatitis C Ab with reflex to HCV PCR (01/29/2024 10:55 AM EDT) Pathologist [facility] Hepatitis C Ab NON-REACT KIERAN NON-REACT KIERAN [facility] Comment: HCV antibody was non-reactive. There is no laboratory evidence of HCV infection. In most cases, no further action is required. However, if recent HCV exposure is suspected, a test for HCV RNA (test code 14251) is suggested. For additional information please refer to http://education.Cybersource/faq/MFZ51w4 (This link is being provided for informational/ educational purposes only.) 01/29/2024 10:5 5 AM EDT 01/29/2024 10:56 AM EDT Narrative Resulting Agency Comment Performing Lab: ?Site ID: [id number] ?Name: [employer] ?Address: [address] [place] [phone] ?Director: Guilherme Quinteros M.D. Rachael JANE LAB BLOOD ORDERABLES F inal Result Performing Organization Address [facility] Co de Phone Number [facility] [address] * (ABNORMAL) Lipid panel with reflex to direct LDL (Q) (01/29/2024 10:51 AM EDT) Pathologist [facility] Cholesterol, Total 203(H) <200 mg/dL [facility] [...] LDL-C. Misael SS et al. BELLA. 2013;310(19): 3782-7109 (http://education.[employer].Your Practical Solutions/faq/AQK152) Chol/HDL Ratio 3.6 <5.0 (calc) [facility] Non-HDL Cholesterol 146(H) <130 mg/dL (calc) [facility] Comment: For patients with diabetes plus 1 major ASCVD risk factor, treating to a non-HDL-C goal of <100 mg/dL (LDL-C of <70 mg/dL) is considered a therapeutic option. 01/29/2024 10:5 1 AM EDT 01/29/2024 10:52 AM EDT Narrative Resulting Agency Comment Performing Lab: ?Site ID: [id number] ?Name: [facility] ?Address: [address] [place] [phone] ?Director: Guilherme Quinteros M.D. Rachael JANE LAB BLOOD ORDERABLES F inal Result [facility] [address] [place] [address] * (ABNORMAL) Comprehensive metabolic panel (01/29/2024 10:51 AM EDT) Pathologist [facility] Glucose 79 65 - 99 mg/dL [facility] [...] Comment Performing Lab: ?Site ID: [id number] ?Name: [employer] ?Address: [address] [place] [phone] ?Director: Guilherme Quinteros M.D. Rachael JANE LAB BLOOD ORDERABLES F inal Result Performing Organization Address City/State/[facility] Co de Phone Number [facility] [address] [place] [address] from Last 3 Months or Most Recently Relevant to Health Maintenance Insurance [place]
--- OUTSIDE RECORDS SUMMARY | 2024-11-06 10:16 | XMS_ITS | Encounter Summary ---
Author Organization [employer] Address [address] [facility] 7t [place] [address] Care Team Providers Care Facility Maintenance Technician Name Role Phone Name, Morales RAMSEY Primary Care Provider [phone] Reason for Visit * Reason Onset Date Comments CHART PREP 11/01/2024 Encounter Details Date Type Department Care Team ([facility] st Contact Info) Description 11/01/2024 Telephone [facility] [address] [place] [address] Name, MD Morales [address] [place] [address] CHART PREP Social History Tobacco Use Types [...] documented as of this encounter Care Teams Facility Maintenance Technician Relationship Specialty Start Date End Date Name, MD Morales [address] [place] [address] PCP - General Family Medicine 07/01/21 documented as of this encounter
--- OUTSIDE RECORDS SUMMARY | 2024-11-06 10:16 | XMS_ITS ---
Author Organization [employer] Address [address] [place] [address] 7t [place] [address] Care Team Providers Care Radio Time Buyer Name Role Phone Name, Morales RAMSEY Primary Care Provider [phone] CHW Complex Status:Enrolled (Active) Start date:09/25/2024 Enrollment date:10/14/2024 Enrollment reason:ADT Feed Overview [facility] [place] Case Team Name Relationship Phone Mirlande Lopez (Responsible Staff) Continued Care and Services Coordination
--- OUTSIDE RECORDS SUMMARY | 2024-11-06 10:16 | XMS_ITS | Encounter Summary ---
Author Organization [employer] Address [address] [place] [address] 7t [place] [address] Care Team Providers Care Sugar Cane Planter Name Role Phone Morales Ortiz MD Primary Care Provider [phone] Reason for Referral * Consultation (Routine) - Authorized Specialty Diagnoses / Procedures Referred By Contamrik t Referred To Contact Midwifery Diagnoses Menorrhagia with irregular cycle Morales Ortiz MD [address] [place] [address] Phone: tel: fax: Millie Sánchez CNM [address] [place] [address] Phone: tel: fax: Referral ID Status Reason Start Date Expiration Date Visits Requested Visits Authorized [id number] Authorized Consult and Treat 11/04/2024 11/04/2025 1 1 * Consultation (Routine) - Authorized Specialty Diagnoses / Procedures Referred By Contac t Referred To Contact Family Medicine Diagnoses Seborrheic keratosis Morales Ortiz MD [address] [place] [address] Phone: tel: fax: Referral ID Status Reason Start Date Expiration Date Visits Requested Visits Authorized [id number] Authorized Specialty Services Required 11/04/2024 11/04/2025 1 1 * Consultation (Routine) - Closed Specialty Diagnoses / Procedures Referred By Contac t Referred To Contact Gastroenterology Diagnoses Iron deficiency anemia, unspecified iron deficiency anemia type History of GI bleed Morales Ortiz MD [address] [place] [address] Phone: tel: fax: [facility] [address] [place], [place] Phone: tel: fax: Referral ID Status Reason Start Date Expiration Date V isits Requested Visits Authorized [id number] Closed Specialty Services Required 11/04/2024 11/04/2025 6 6 Reason for Visit * Reason Comments Follow-up Encounter Details Date Type Department Care Team (Late st Contact Info) Description 11/04/2024 10:45 AM EDT Office Visit [facility] [address] [place] [address] Morales Ortiz MD [address] [place] [address] Iron deficiency anemia, unspecified iron deficiency anemia [...] in this encounter Progress Notes * Morales Ortiz, - 11/04/2024 10:45 AM EDT Subjective Patient [...] back pain. She has been following with [facility] pain clinic. She is scheduled to have [...] dermatology as requested Orders: - Referral to [facility] D[facility] Skin Adult; Future Chronic right-sided low back pain, unspecified whether sciatica present Comments: Continue Tylenol and continue following with [facility] pain clinic Other orders - amitriptyline (Elavil) [...] After use, clean tip and replace cap. * Morales Ortiz MD - 11/04/2024 10:45 AM EDT I will cancel the hematology visit since her CBC is back to normal Lab Results Component Value Date WBC 5.3 11/04/2024 HGB 12.8 11/04/2024 HCT 39.7 11/04/2024 MCV 87.6 11/04/2024 PLT 340 11/04/2024 documented in this encounter Miscellaneous Notes * Addendum Note - Morales Ortiz MD - 11/04/2024 10:45 AM EDTAddended by: MORALES ORTIZ on: 11/04/2024 01:46 PM Modules accepted: Orders documented in this encounter Plan of Treatment Scheduled Referrals Name Type Priority Associated Diagnoses Order Schedule Referral to Gastroenterology Outpatient Referral Routine Iron deficiency anemia, unspecified iron deficiency anemia type History of GI bleed Expected: 11/04/2024 (Approximate), Expires: 11/04/2025 Referral to [facility] Adult Outpatient Referral Routine Seborrheic keratosis Expected: 11/04/2024 (Approximate), Expires: 11/04/2025 Referral to Gynecology ([facility]) Outpatient Referral Routine Menorrhagia with irregular cycle Expected: 11/04/2024 (Approximate), Expires: 11/04/2025 documented as of this encounter Procedures Procedure Name Priority Date/Time Associated Diagnosis Comments IRON AND TOTAL IRON BINDING CAPACITY Routine 11/04/2024 11:11 AM EDT Iron deficiency anemia, unspecified iron deficiency anemia type FERRITIN Routine 11/04/2024 11:11 AM EDT Iron deficiency anemia, unspecified iron deficiency anemia type CBC WITH AUTO DIFFERENTIAL Routine 11/04/2024 11:10 AM EDT Iron deficiency anemia, unspecified iron deficiency anemia type documented in this encounter Results * Ferritin (11/04/2024 11:11 AM EDT) Ferritin 17 10 - 250 ng/mL [facility] Blood Venous blood specimen / Unknown 11/04/2024 11:11 AM EDT 11/04/2024 1:07 PM EDT us Morales Ortiz MD LAB BLOOD ORDERABLES Final Resul t Performing Organization Address [facility] de Phone Number [facility] [address] [place] [phone] * Iron And Total Iron Binding Capacity (11/04/2024 11:11 AM EDT) Iron 78 30 - 160 mcg/dL [facility] Total Iron Binding Capacity 305 228 - 428 mcg/dL [facility] Percent Iron Saturation 26 15 - 50 % [facility] Unsaturated Iron Binding 227 ug/dL [facility] Blood Venous blood specimen / Unknown 11/04/2024 11:11 AM EDT 11/04/2024 1:07 PM EDT us Morales Ortiz MD LAB BLOOD ORDERABLES Final Resul t Performing Organization Address [facility] de Phone Number [facility] [address] [place] [phone] * CBC auto differential (11/04/2024 11:10 AM EDT) White Blood Count 5.3 4.8 - 10.8 X10*3/uL [facility] Red Blood Count 4.53 4.20 - 5.50 X10*6/uL [facility] Hemoglobin 12.8 12.0 - 16.0 g/dl [facility] Hematocrit 39.7 37.0 - 47.0 % [facility] Mean Corpuscular Volume 87.6 80.0 - 98.0 fL [facility] Mean Corpuscular Hemoglobin 28.3 27.0 - 33.0 pg [facility] Mean Corpuscular HGB Conc 32.2 31.0 - 35.0 g/dl [facility] Red Cell Distribution Width 13.4 11.0 - 16.0 % [facility] Platelet Count 340 160 - 400 X10*3/uL [facility] Mean Platelet Volume 9.6 9.4 - 12.3 fL [facility] Neutrophils Percent Auto 58.2 45 - 73 % [facility] Imm Gran Pct Auto 0.4 0.0 - 0.4 % [facility] Lymphocytes Percent Auto 31.6 20 - 40 % [facility] Monocytes Percent Auto 6.8 2 - 11 % [facility] Eosinophils Percent Auto 1.9 0 - 4 % [facility] Basophils Percent Auto 1.1 0 - 2 % [facility] NRBC Pct Auto 0.0 0.0 - 0.2 /100WBC [facility] Neutrophils Absolute Auto 3.1 2.0 - 8.3 x10*3/uL [facility] Imm Gran Abs Auto 0.02 0.00 - 0.03 X10*3/uL [facility] Lymphocytes Absolute Auto 1.7 1.2 - 4.9 X10*3/uL [facility] Monocytes Absolute Auto 0.4 0.1 - 1.2 X10*3/uL [facility] Eosinophils Absolute Auto 0.1 0.0 - 0.4 X10*3/uL [facility] Basophils Absolute Auto 0.1 0.0 - 0.2 X10*3/uL [facility] NRBC Abs Auto 0.000 0.0 - 0.012 X10*3/uL [facility] Blood Venous blood specimen / Unknown 11/04/2024 11:10 AM EDT 11/04/2024 1:07 PM EDT us Morales Ortiz MD LAB BLOOD ORDERABLES Final Resul t [facility] [address] [place] [phone] documented in this encounter Visit Diagnoses Diagnosis Iron deficiency [...] documented as of this encounter Care Teams Sugar Cane Planter Relationship Specialty Start Date End Date Name, MD Morales [address] [facility] [place] [address] PCP - General Family Medicine 07/01/21 documented as of this encounter
--- OUTSIDE RECORDS SUMMARY | 2024-11-06 10:16 | XMS_ITS | Encounter Summary ---
Author Organization [employer] Address [address] [facility] [facility] 7t [place] [address] Care Team Providers Care Shot Hole Shooter Name Role Phone Name, Morales RAMSEY Primary Care Provider [phone] Encounter Details Date Type Department Care Team ([facility] st Contact Info) Description 11/01/2024 Patient Outreach [facility] [address] [place] [address] Name, MD Morales [address] [place] [address] Social History Tobacco Use Types Packs/Day Years [...] documented as of this encounter Care Teams Shot Hole Shooter Relationship Specialty Start Date End Date Name, MD Morales [address] [place] [address] PCP - General Family Medicine 07/01/21 documented as of this encounter
--- OUTSIDE RECORDS SUMMARY | 2024-11-06 10:16 | XMS_ITS | Encounter Summary ---
Author Organization [employer] Address [address] [facility] [address] 7t [place] [address] Care Team Providers Care Horn Player Name Role Phone Name, Morales RAMSEY Primary Care Provider [phone] Encounter Details Date Type Department Care Team ([facility] st Contact Info) Description 11/01/2024 Patient Outreach [facility] [address] [place] [address] Name, MD Morales [address] [place] [address] Social History Tobacco Use Types Packs/Day Years [...] provided on [facility]. Patient provided with after-hours line for [facility], , which offer nighttime triage service and option to transfer to health information coder provider if needed. Patient verbalizes understanding, and able to repeat back to group underwriter. A follow up call will be placed within 10 days, patient agrees with plan. documented in this encounter Plan of Treatment Not on file documented as of this encounter Visit Diagnoses Not on filedocumented in this encounter Additional Health Concerns Assessment Noted Time PHQ-9 Depression Total Score: 1 10/15/19 25 10:58 AM EDT documented as of this encounter Care Teams Horn Player Relationship Specialty Start Date End Date Name, MD Morales [address] [place] [address] PCP - General Family Medicine 07/01/21 documented as of this encounter
--- OUTSIDE RECORDS SUMMARY | 2024-11-06 10:16 | XMS_ITS | Encounter Summary ---
Author Organization [employer] Address [address] [facility] 7t [place] [address] Care Team Providers Care Consulting Solution Director Name Role Phone Name, Morales RAMSEY Primary Care Provider [phone] Encounter Details Date Type Department Care Team [...] documented as of this encounter Care Teams Consulting Solution Director Relationship Specialty Start Date End Date Name, MD Morales [address] [place] [phone] PCP - General Family Medicine 07/01/21 documented as of this encounter
== END 2024-11-06 10:12 | disposition home or self-care (01) ==
LOC: HO.HOS 09:32
PROVIDERS: PCP Internal Medicine Geriatric Medicine
DX: M77.02 Medial epicondylitis, left elbow (principal)
CPT/HCPCS: 99213

== ENCOUNTER → 2024-11-06 09:31 | Outpatient (BNVA) | payer MEDICAID, SELFPAY | PROVIDERS: PCP Internal Medicine Geriatric Medicine | DX: M77.02 Medial epicondylitis, left elbow (principal) | CPT/HCPCS: 99212 ==

== ENCOUNTER 2024-11-14 06:21 | Outpatient (REF) | payer MEDICAID, SELFPAY ==
--- NOTE | ~2024-11-14 | FL_ITS ---
EXAMINATION: FL GUIDANCE ONLY HISTORY: M53.3 - Sacrococcygeal disorders, not elsewhere classified COMPARISON: None available. TECHNIQUE: Fluoroscopy time: 0.1 minutes. Cumulative Dose: 4.66 mGy. DAP: 0.0488 mGym2 Images: 2. FINDINGS: The endoscopic spot films demonstrate a needle in the region of the right sacroiliac joint. FL/FL guidance in treatment room IMPRESSION: Fluoroscopy during procedure. Please see procedure report for additional information. Electronically signed by: Jamarcus Lacy MD 11/14/2024 02:30 PM EDT
--- OUTSIDE RECORDS SUMMARY | 2024-11-14 06:24 | XMS_ITS | Clinical Summary ---
Author Organization [facility] Address [address] [place] [address] Care Team Providers Care Hvac Design Mechanical Engineer Name Role Phone Unavailable Primary Care Provider [...] (Ages 21-65) 1995 Mammogram 2014 Colonoscopy 2019 COVID-19 Vaccine (3 - 2023-25 season) 2024, 12/05/2020 Pneumococcal Vaccines 50+ (1 of 1 - PCV) 2024 Zoster (Shingles) Vaccine (1 of 2) 2024 Influenza Vaccine 02/07/2025 Insurance MEDICAID OUT OF STATE [facility] on file
--- OUTSIDE RECORDS SUMMARY | 2024-11-14 06:24 | XMS_ITS ---
Author Organization [facility] Address [address] [place] [address] Care Team Providers Care Program Admin Name Role Phone Linda Lopez Primary Care Provider UnavailJamarcus Bermeo [phone] Encounters Encounter Location Date Provider Diagnosis [facility] [address] [place] [address] 08/05/2024 Jamarcus Banda Plan Of Treatment Next Appt Details Provider Name:Jamarcus Banda , 12/05/2024 11:00:00 AM, [address], [address], [place], [address], Progress Notes * CHUCHO HOLMDOB:[birth year] (49 yo F)Acc No.[id number]:08/05/2024 Patient:?CHUCHO HOLM :1975???Age:49 Y???Sex:Female Address:[address] , [place], [address] * true * Date:? Generated for Printi francisco j/Cadence/eTransmitting on:?11/14/2024 06:24 AM EDT
--- OUTSIDE RECORDS SUMMARY | 2024-11-14 06:24 | XMS_ITS | Clinical Summary ---
Author Organization [facility] [address] Address [address] [place] [phone] Phone Care Team Providers Care Piecer Name Role Phone Unavailable Primary Care Provider [...] 2024 06/14/2022, 11/10/2021, 12/26/2020, Additional history exists Breast cancer screening 10/11/2024 10/11/2022, 10/11 Influenza vaccine 03/10/2025 04/10/2024, , 06/14/2022, Additional history exists Diabetes screening 01/28/2027 01/29/2024 Lipid disorder screening 01/28/2029 01/29/2024 Tetanus adult (Td q 10,TDAP once) 02/19/2029 02/19/2019 RSV Immunization (1 - 1-dose 75+ series) 2049 HIV screening Completed 01/29/2024 Hepatitis C screening Completed 01/29/2024 Pneumococcal Vaccine (2 - 49 years) Discontinued 11/04/2024, 08/01/2016 Pneumococcal Vaccine (50+ years) Completed 11/04/2024, 08/01/2016 Shingles vaccine (Shingrix) Completed 11/04/2024, 0 08/20/2024 Meningococcal Vaccine Aged Out No chad balbir [...] ag/ab, w/reflexes (Q) (01/29/2024 10:55 AM EDT) [facility] HIV Ag/Ab, 4th Generation NON-REACT KIERAN NON-REACT [...] ?? For additional information please refer to http://education.[employer].BillShrink/faq/YQO158 (This link is being provided for informational/ educational purposes only.) The performance of this assay has not been clinically validated in patients less than 2 years old. Blood 01/29/2024 10:5 5 AM EDT 01/29/2024 10:56 AM EDT Narrative Resulting Agency Comment Performing Lab: ?Site ID: [id number] ?Name: [employer] ?Address: [address] [place] [phone] ?Director: Guilherme Quinteros M.D. Rachael JANE LAB BLOOD ORDERABLES F inal Result Performing Organization Address City/[facility] Co de Phone Number [facility] [address] [place] [address] * Hepatitis C Ab with reflex to HCV PCR (01/29/2024 10:55 AM EDT) Pathologist [facility] Hepatitis C Ab NON-REACT KIERAN NON-REACT KIERAN [facility] Comment: HCV antibody was non-reactive. There is no laboratory evidence of HCV infection. In most cases, no further action is required. However, if recent HCV exposure is suspected, a test for HCV RNA (test code 63037) is suggested. For additional information please refer to http://education.Sara Campbell/faq/MDB19v1 (This link is being provided for informational/ educational purposes only.) 01/29/2024 10:5 5 AM EDT 01/29/2024 10:56 AM EDT Narrative Resulting Agency Comment Performing Lab: ?Site ID: [id number] ?Name: [employer] ?Address: [address] [place] [phone] ?Director: Guilherme Quinteros M.D. Rachael JANE LAB BLOOD ORDERABLES F inal Result Performing Organization Address [facility] Co de Phone Number [facility] [address] [place] [address] * (ABNORMAL) Lipid panel with reflex to direct LDL (Q) (01/29/2024 10:51 AM EDT) Pathologist [facility] Cholesterol, Total 203(H) <200 mg/dL [...] LDL-C. Misael SS et al. BELLA. 2013;310(19): 8696-2239 (http://education.[employer]ell[employer]X.BillShrink/faq/IQA402) Chol/HDL Ratio 3.6 <5.0 (calc) [facility] Non-HDL Cholesterol 146(H) <130 mg/dL (calc) [facility] Comment: For patients with diabetes plus 1 major ASCVD risk factor, treating to a non-HDL-C goal of <100 mg/dL (LDL-C of <70 mg/dL) is considered a therapeutic option. 01/29/2024 10:5 1 AM EDT 01/29/2024 10:52 AM EDT Narrative Resulting Agency Comment Performing Lab: ?Site ID: [id number] ?Name: [employer] ?Address: [address] [place] [phone] ?Director: Guilherme Quinteros M.D. Rachael JANE LAB BLOOD ORDERABLES F inal Result [facility] [address] [place] [address] * (ABNORMAL) Comprehensive metabolic panel (01/29/2024 10:51 [...] Comment Performing Lab: ?Site ID: [id number] ?Name: [employer] ?Address: [address] [place] [phone] ?Director: Guilherme Quinteros M.D. Rachael JANE LAB BLOOD ORDERABLES F inal Result [facility] [address] [place] [address] from Last 3 Months or Most Recently Relevant to Health Maintenance Insurance [place]
--- OUTSIDE RECORDS SUMMARY | 2024-11-14 06:24 | XMS_ITS ---
Author Organization [employer] Address [address] [place] [address] 7t [place] [address] Care Team Providers Care Learn To Swim Instructor Name Role Phone Name, Morales RAMSEY Primary Care Provider [phone] CHW Complex Status:Enrolled (Active) Start date:09/25/2024 Enrollment date:10/14/2024 Enrollment reason:ADT Feed Overview [facility] 09/24 Case Team Name Relationship Phone Mirlande Lopez (Responsible Staff) [phone] Continued Care and Services Coordination
--- OUTSIDE RECORDS SUMMARY | 2024-11-14 06:24 | XMS_ITS | Encounter Summary ---
Author Organization [employer] Address [address] [facility] 7t [place] [address] Care Team Providers Care Office Supervisor Name Role Phone Name, Morales RAMSEY Primary Care Provider [phone] Reason for Visit * Reason Onset Date Comments Hospital Follow-up 03/29/2024 Encounter Details Date Type Department Care Team ([facility] st Contact Info) Description 03/29/2024 Telephone [facility] [address] [place] [address] Name, MD Morales [address] [place] [address] Hospital Follow-up Social History Tobacco Use Types [...] EDT Please obtain in patient notes from [facility] admitted 03/17/24 and transfer to [facility] inpatient with diwscharge date of 03/28/24. Hospital discharge follow up appt booked for 04/05/24 Monica CHISHOLM 2pm * Telephone Encounter - Senia Levine LPN - 03/29/2024 10:40 AM EDT Triage call returned to patient with Daniels [id number]. Patient discharged from [facility] yesterday. Initial admission to [facility] on 03/17/24 transferred to [facility] after 6 days and discharged to home yesterday. is feeling well. Concerned with Insurance coverage.[employer] active as run today. No new symptoms [...] become worse * Telephone Encounter - Suraj Diaz - 03/29/2024 9:12 AM EDT Tc from pt requesting a HDF appt. Hospital: [facility] Date of admission: 03/17/24 Discharge date: 03/28/24 Diagnosed: Abdominal Pain ([place] Citizen Speaker) documented in this encounter Plan of Treatment Upcoming Encounters Date Type Department Care Team (Late st Contact Info) Description 02/19/2025 10:45 AM EDT Office Visit [facility] [address] [place] [phone] Name, MD Morales [address] [place] [phone] documented as of this encounter Visit Diagnoses Not on filedocumented in this encounter Additional Health Concerns Assessment Noted Time PHQ-9 Depression Total Score: 0 12/16/19 23 11:12 AM EDT documented as of this encounter Care Teams Office Supervisor Relationship Specialty Start Date End Date Name, MD Morales [address] [place] [phone] PCP - General Family Medicine 07/01/21 documented as of this encounter
--- OUTSIDE RECORDS SUMMARY | 2024-11-14 06:24 | XMS_ITS ---
Author Organization [employer] Address [address] [place] [address] 7t [place] [address] Care Team Providers Care Interlocking Pavement Installer Name Role Phone Name, Morales RAMSEY Primary Care Provider [phone] CM Complex Status:Enrolled (Active) Start date:09/25/2024 Enrollment date:10/14/2024 Enrollment reason:ADT Feed Overview ED- Pt went to [facility] ED on 09/24. Case Team Name Relationship Phone Yesica Palencia RN Registered Nurse(Responsible S taff) [phone] Continued Care and Services Coordination
--- OUTSIDE RECORDS SUMMARY | 2024-11-14 06:24 | XMS_ITS | Clinical Summary ---
Author Organization [employer] Address [address] [place] [address] 7t [place] [address] Care Team Providers Care Cruise Guide Name Role Phone Name, Morales RAMSEY Primary Care Provider [phone] Allergies Active Allergy Reactions Criticality Noted Date [...] at bedtime. 30 tablet 2 11/05/19 25 07/27/2 025 Active SUMAtriptan (Imitrex) 25 MG tablet [...] tip and replace cap. 16 g 11/05/19 25 026 Active Active Problems Problem Noted Date [...] sleeve gastrectomy 08/12/2022 Overview (08/12/2022): Dr. Ortiz, [facility], 07/2022 Chronic low back pain 06/18/2022 Dysmenorrhea 06/18/2022 Esophageal dysphagia 06/18/2022 Hypertensive disorder 06/18/2022 Lower esophageal ring 06/18/2022 Morbid obesity 06/18/2022 Pain in pelvis 06/18/2022 Umbilical hernia 06/18/2022 Prediabetes 08/23/2021 Encounters Date Type Department Care Team Description 11/13/[address] [address] Yumiko Fabian [place] January recalls 11/04/2024 10:45 AM EDT Office Visit [address] [address] Morales Ly MD Iron deficiency anemia, unspecified iron deficiency anemia type (Primary Dx); Menorrhagia with irregular cycle; History of GI bleed; Migraine without aura and without status migrainosus, not intractable; Seasonal allergies; Seborrheic keratosis; Chronic right-sided low back pain, unspecified whether sciatica present 11/04/2024 Travel 11/01/2024 Patient Outreach [facility] [address] [place] [address] Morales Ly MD 11/01/[address] [address] Morales Ly MD CHART PREP 11/01/2024 Patient Outreach [facility] [address] [place] [address] Morales Ly MD 10/31/2024 Patient Outreach [address] [address] Morales Ly MD 10/31/2024 Patient Outreach [facility] [address] [place] [address] Morales Ly MD Care Coordination (C3/CM F/U) 10/24/2024 Patient Outreach [address] [address] Morales Ly MD 10/14/2024 Telephone [facility] [address] [place] [address] Morales Ly MD Care Coordination ([facility] referral) 10/14/2024 Plan of Care Documentation [address] [address] 10/14/2024 Patient Outreach [facility] [address] [place] [address] Morales Ly MD Care Coordination ([facility] initial assessment/ enrollment) 10/11/2024 Patient Outreach [address] [address] Morales Ly MD Care Coordination (Outreach) 10/02/[address] [address] Morales Ly MD Results 09/27/2024 11:15 AM EDT Office Visit [address] [address] Xi Johnson NP Lumbar radiculopathy (Primary Dx) 09/27/2024 Travel 09/25/2024 Patient Outreach [address] [address] Morales Ly MD 09/25/2024 Patient Outreach [address] [address] Morales Ly MD Care Coordination (C3/CM Outreach) 09/25/[address] [address] Morales Ly MD Nurse Triage; ER Follow-up 09/25/2024 Patient Outreach [address] [address] Morales Ly MD 09/25/2024 Patient Outreach [address] [address] Morales Ly MD Care Coordiantion 09/25/2024 Patient Outreach [facility] [address] [place] [address] NameMorales MD Care Coordination (C3CM Chart review) 09/25/2024 Patient Outreach [facility] [address] [place] [address] Morales Ly MD 09/24/2024 10:00 AM EDT Office Visit [facility] [place] [address] [place] [address] Denny Bocanegra MD Acute bilateral low back pain with right-sided sciatica (Primary Dx); Hypertension, unspecified type 09/20/2024 Population Health Risk Score [facility] Care [facility] (C3) Department [address] [place] [phone] Provider, Population Health Generic 09/10/2024 9:00 AM EST [facility] [address] [place] [address] Denny Bocanegra MD Left elbow pain (Primary Dx); Elbow injury, left, initial encounter; Finger pain, right 09/09/2024 Orders Only [facility] External Provider, [facility] from Last 3 Months Immunizations Name [...] 11/04/2024 10:24 AM EDT Plan of Treatment Upcoming Encounters Date Type Department Care Team (Late st Contact Info) Description 02/19/2025 10:45 AM EDT Office Visit [facility] [address] [place] [address] Name, MD Morales [address] [place] [address] Health Maintenance Due Date Last Done Comments [...] 11/04/2025 11/04/2024 Depression Screening 11/04/2025 11/04/2024, 11/05/19 Tobacco Screening 11/04/2025 11/04/2024 Cervical Cancer Screening [...] EDT) Iron 78 30 - 160 mcg/dL [facility] Total Iron Binding Capacity 305 228 - 428 mcg/dL [facility] Percent Iron Saturation 26 15 - 50 % [facility] Unsaturated Iron Binding 227 ug/dL [facility] Blood Venous blood specimen / Unknown 11/04/2024 11:11 AM EDT 11/04/2024 1:07 PM EDT us Morales Ly MD LAB BLOOD ORDERABLES Final Resul t [facility] [address] [place] [phone] * Ferritin (11/04/2024 11:11 AM EDT) Ferritin 17 10 - 250 ng/mL [facility] Blood Venous blood specimen / Unknown 11/04/2024 11:11 AM EDT 11/04/2024 1:07 PM EDT us Morales Name MD LAB BLOOD ORDERABLES Final Resul t [facility] [address] [place] [address] [phone] * CBC auto differential (11/04/2024 11:10 AM EDT) White Blood Count 5.3 4.8 - 10.8 X10*3/uL [facility] Red Blood Count 4.53 4.20 - 5.50 X10*6/uL [facility] Hemoglobin 12.8 12.0 - 16.0 g/dl [facility] Hematocrit 39.7 37.0 - 47.0 % [facility] Mean Corpuscular Volume 87.6 80.0 - 98.0 fL [facility] Mean Corpuscular Hemoglobin 28.3 27.0 - 33.0 pg [facility] Mean Corpuscular HGB Conc 32.2 31.0 - 35.0 g/dl [facility] Red Cell Distribution Width 13.4 11.0 - 16.0 % [facility] Platelet Count 340 160 - 400 X10*3/uL [facility] Mean Platelet Volume 9.6 9.4 - 12.3 fL [facility] Neutrophils Percent Auto 58.2 45 - 73 % [facility] Imm Gran Pct Auto 0.4 0.0 - 0.4 % [facility] Lymphocytes Percent Auto 31.6 20 - 40 % [facility] Monocytes Percent Auto 6.8 2 - 11 % [facility] Eosinophils Percent Auto 1.9 0 - 4 % [facility] Basophils Percent Auto 1.1 0 - 2 % [facility] NRBC Pct Auto 0.0 0.0 - 0.2 /100WBC [facility] Neutrophils Absolute Auto 3.1 2.0 - 8.3 x10*3/uL [facility] Imm Gran Abs Auto 0.02 0.00 - 0.03 X10*3/uL [facility] Lymphocytes Absolute Auto 1.7 1.2 - 4.9 X10*3/uL [facility] Monocytes Absolute Auto 0.4 0.1 - 1.2 X10*3/uL [facility] Eosinophils Absolute Auto 0.1 0.0 - 0.4 X10*3/uL [facility] Basophils Absolute Auto 0.1 0.0 - 0.2 X10*3/uL [facility] NRBC Abs Auto 0.000 0.0 - 0.012 X10*3/uL [facility] Blood Venous blood specimen / Unknown 11/04/2024 11:10 AM EDT 11/04/2024 1:07 PM EDT us Morales Name MD LAB BLOOD ORDERABLES Final Resul t [facility] [address] [place] [address] [phone] * MR Lumbar Spine w/o Contrast (10/01/2024 6:57 PM EDT) Anatomical Region Laterality Modality Spine, L-spine Magnetic Resonan ce 10/01/2024 6:57 PM EDT Narrative 10/01/2024 6:59 PM EDT ? [facility] ?[address] ?[place] [address] ? Magnetic Resonance Report ? Signed ? Patient: Traci Dahl ?MR#: [id number] ?? [id number] ? : 1975 ?Acct:[id number] ? Age/Sex: 49 / F ?ADM Date: 03/25/25 ? Loc: HO.MRI ? Attending Dr: Xi Johnson ? Ordering Physician: Xi Johnson ?? Date of Service: 10/01/24 ?? Procedure(s): MR lumbar spine wo con ?? Accession Number(s): [id number] ? cc: Xi Johnson; Name,Morales RAMSEY ? [...] ? DD/ 56 ? TD/TT: 10/01/241856 ? Educational Resource Center Teacher: ? Procedure Note Diana, Image - 10/01/2024 [place] [address] Magnetic Resonance Report Signed Patient: Traci DahlMR#: [id number] : 1975Acct:[id number] Age/Sex: 49 / FADM Date: 10/01/24 Loc: HO.MRI Attending Dr: Xi Johnson Ordering Physician: Xi Johnson Date of Service: 10/01/24 Procedure(s): MR lumbar spine wo con Accession Number(s): [id number] cc: Xi Johnson; Name,Morales RAMSEY CLINICAL HISTORY: [...] in OV> 10/01/241858 DD/ 56 TD/TT: 10/01/241856 [employer] Teacher: us Xi Johnson NP IMG MRI PROCEDURES Edited Resul t - Final * XR Lumbar Spine 2-3 Views (09/24/2024 11:20 AM EDT) Anatomical Region Laterality Modality Spine, L-spine Radiographic Kimi ging 09/24/2024 11:2 0 AM EDT Narrative 09/24/2024 11:52 AM EDT ? [facility] ?[address] ?[place] [address] ?XRay Report ? Signed ? Patient: Lara Ortega,Traci ?MR#: [id number] ?? [id number] ? : 1975 ?Acct:[id number] ? Age/Sex: 49 / F ?ADM Date: 03/18/25 ? Loc: HO.ED ? Attending Dr: ? Ordering Physician: Frida Gong ?? Date of Service: 09/24/24 ?? Procedure(s): XR lumbar spine 2-3V ?? Accession Number(s): [id number] ? cc: Frida Gong; Name,Morales RAMSEY ? [...] ??Jamarcus Lacy MD ??09/24/2024 11:49 AM EDT ? Dictated By: ?Jamarcus Lacy MD ? Signed By: ?<Electronically signed by Jamarcus Lacy MD in OV> ?09/24/24 1149 ? DD/ 1120 ? TD/TT: 09/24/24 1129 ? [employer] Resource Center Teacher: ? Procedure Note Nikki Ortiz - 09/24/2024 [place] [address] XRay Report Signed Patient: Traci DahlMR#: [id number] : 1975Acct:[id number] Age/Sex: 49 / FADM Date: 09/24/24 Loc: HO.ED Attending Dr: Ordering Physician: Frida Gong Date of Service: 09/24/24 Procedure(s): XR lumbar spine 2-3V Accession Number(s): [id number] cc: Frida Gong; Name,Morales RAMSEY EXAMINATION: XR [...] 09/24/24 1149 DD/ 1120 TD/TT: 09/24/24 1129 [employer] Resource Center Teacher: [facility] External Provider IMG XR PROCEDURES Final Result * MR Shoulder w/o Contrast Right (09/11/2024 2:40 PM EST) Anatomical Region Laterality Modality Upper Extremities, Shoulder Right Magn etic Resonance 09/11/2024 2:40 PM EST Narrative 09/11/2024 2:42 PM EST ? [facility] ?[address] ?[place] [address] ? Magnetic Resonance Report ? Signed ? Patient: Traci Dahl ?MR#: [id number] ?? [id number] ? : 1975 ?Acct:[id number] ? Age/Sex: 49 / F ?ADM Date: 09/09/24 ? Loc: HO.MRI ? Attending Dr: Best Sierra MD ? Ordering Physician: Best Sierra MD ?? Date of Service: 09/09/24 ?? Procedure(s): MR shoulder RT wo con ?? Accession Number(s): [id number] ? cc: Name,Morales RAMSEY; Best Sierra MD [...] MD in OV> ? 09/11/241441 ? DD/ 1440 ? TD/TT: 09/11/24 1440 ? [employer] Resource Center Teacher: ? Procedure Note Donotuseinterpreter, Image - 09/11/2024 [place] [address] Magnetic Resonance Report Signed Patient: Traci Dahl#: [id number] : 1975Acct:[id number] Age/Sex: 49 / FADM Date: 09/09/24 Loc: HO.MRI Attending Dr: Best Sierra MD Ordering Physician: Best Sierra MD Date of Service: 09/09/24 Procedure(s): MR shoulder RT wo con Accession Number(s): [id number] cc: Name,Morales RAMSEY; Best Sierra MD CLINICAL [...] 09/11/24 1442 DD/ 1440 TD/TT: 09/11/24 1440 [employer] Resource Center Teacher: [facility] External Provider IMG MRI PROCEDURES Edited Result - Final * XR Fingers 2+ Views Right (09/10/2024 9:28 AM EST) Anatomical Region Laterality Modality Upper Extremities, Fingers Right Radio graphic Imaging 09/10/2024 9:28 AM EST Narrative 09/10/2024 10:05 AM EST ?[facility] ?[address] ?[place] [address] ?XRay Report ? Signed ? Patient: Traci Dahl ?MR#: [id number] ?? [id number] ? : 1975 ?Acct:[id number] ? Age/Sex: 49 / F ?ADM Date: 09/10/24 ? Loc: HO.HHCX ? Attending Dr: Denny Bocanegra MD ? Ordering Physician: DENNY BOCANEGRA MD ?? Date of Service: 09/10/24 ?? Procedure(s): XR finger RT min 2V ?? Accession Number(s): [id number] ? cc: DENNY BOCANEGRA MD ? EXAMINATION: [...] DD/ 0928 ? TD/TT: 09/10/24 0950 ? Educational Resource Center Teacher: ? Procedure Note Diana, Image - 09/10/2024 [place] [address] XRay Report Signed Patient: Traci DahlMR#: [id number] : 1975Acct:[id number] Age/Sex: 49 / FADM Date: 09/10/24 Loc: HO.HHCX Attending Dr: Denny Bocanegra MD Ordering Physician: DENNY BOCANEGRA MD Date of Service: 09/10/24 Procedure(s): XR finger RT min 2V Accession Number(s): [id number] cc: DENNY BOCANEGRA MD EXAMINATION: XR FINGER, [...] Ronald Loo MDin OV> 09/10/24 1002 DD/ 7 TD/TT: 09/10/24 0950 Educational Resource Center Teacher: us Denny Bocanegra MD IMG XR PROCEDURES Final Result * XR Elbow 3+ Views Left (09/10/2024 9:28 AM EST) Anatomical Region Laterality Modality Upper Extremities, Elbow Left Radiogr aphic Imaging 09/10/2024 9:28 AM EST Narrative 09/10/2024 10:05 AM EST ?[facility] ?[address] ?[place] [address] ?XRay Report ? Signed ? Patient: Traci Dahl ?MR#: [id number] ?? [id number] ? : 1975 ?Acct:[id number] ? Age/Sex: 49 / F ?ADM Date: 09/10/24 ? Loc: HO.HHCX ? Attending Dr: Denny Bocanegra MD ? Ordering Physician: DENNY BOCANEGRA MD ?? Date of Service: 09/10/24 ?? Procedure(s): XR elbow LT min 3V ?? Accession Number(s): [id number] ? cc: DENNY BOCANEGRA MD ? EXAMINATION: [...] by Ronald Loo MD in OV> ? 09/10/ 1003 ? DD/DT: 09/10/ 0928 ? TD/TT: // 0950 ? Educational Resource Center Teacher: ? Procedure Note Donotuseinterpreter, Image - 09/10/2024 [facility] [address] [place] [address] XRay Report Signed Patient: Traci DahlMR#: [id number] : 1975Acct:[id number] Age/Sex: 49 / FADM Date: 09/10/24 Loc: HO.HHCX Attending Dr: Denny Bocanegra MD Ordering Physician: DENNY BOCANEGRA MD Date of Service: 09/10/24 Procedure(s): XR elbow LT min 3V Accession Number(s): [id number] cc: DENNY BOCANEGRA MD EXAMINATION: XR ELBOW, [...] 09/10/24 1003 DD/ 0928 TD/TT: 09/10/24 0950 [employer] Resource Center Teacher: us Denny Bocanegra MD IMG XR PROCEDURES Final Result * XR Shoulder 2+ Views Right (08/19/2024 9:25 AM EST) Anatomical Region Laterality Modality Upper Extremities, Shoulder Right Radi ographic Imaging 08/19/2024 9:25 AM EST Narrative 08/19/2024 9:56 AM EST ?[facility] ?[address] ?[place] [address] ?XRay Report ? Signed ? Patient: Lara Ortega,Traci ?MR#: [id number] ?? [id number] ? : 1975 ?Acct:[id number] ? Age/Sex: 49 / F ?ADM Date: 08/19/24 ? Loc: HO.HHCX ? Attending Dr: Denny Bocanegra MD ? Ordering Physician: DENNY BOCANEGRA MD ?? Date of Service: 08/19/24 ?? Procedure(s): XR shoulder RT min 2V ?? Accession Number(s): [id number] ? cc: DENNY BOCANEGRA MD ? EXAMINATION: [...] ? DD/ 4 ? TD/TT: 08/19/2449 ? Educational Resource Center Teacher: ? Procedure Note Diana, Image - 08/19/[address] [address] XRay Report Signed Patient: Traci DahlMR#: [id number] : 1975Acct:[id number] Age/Sex: 49 / FADM Date: 08/19/24 Loc: HO.HHCX Attending Dr: Denny Bocanegra MD Ordering Physician: DENNY BOCANEGRA MD Date of Service: 08/19/24 Procedure(s): XR shoulder RT min 2V Accession Number(s): [id number] cc: DENNY BOCANEGRA MD EXAMINATION: XR SHOULDER [...] 09:54 AM EST RP Dictated By: Jamarcus Layc MD Signed By: <Electronically signed by Jamarcus Lacy MD in OV> 08/19/2454 DD/ 4 TD/TT: 08/19/2449 [employer] Resource Center Teacher: Denny Bocanegra MD IMG XR PROCEDURES Edited Result - Final * Hemoglobin A1c (04/26/2024 8:28 AM EDT) Hemoglobin A1c 4.9 <6.0 % [facility] Comment:Hemoglobin A1C Refer ence Range Adults: 4.8 - 6.0 % Non diabetic: < 6.0 % Goal: < 7.0 %Additional Action Suggested: > 8.0 %Note: Hemoglobin A1c results are invalid for patients with abnormal amounts of HbF. Blood transfusions may impact the HbA1c concentration in the patient sample. Estimated Average Glucose 94 mg/dL [facility] Comment:eAG = Estimated ave rage glucose which is %A1C expressed asaverage glucose, using the formula of the [id number]-LfykzvdQizufwj Glucose study (ADAG), Diabetes Care, Vol.31,#8,Feb. 2007 04/26/2024 8:28 AM EDT 04/26/2024 8:28 AM EDT us Generic External Data Provider LAB BLOOD ORDERAB LES Final Result [facility] [address] [place] [phone] * (ABNORMAL) Lipid Panel, Standard (04/26/2024 8:28 AM EDT) Triglycerides 80 <150 mg/dL [facility] Comment:Desirable Triglyceri de: less than 150 mg/dLBorderline High Triglyceride 150-199 mg/dLHigh Triglyceride: 200-499 mg/dLVery High Triglyceride: greater than or equal to 5OO mg/dL Cholesterol 186 <200 mg/dL [facility] Comment:Desirable Cholestero l: less than 200 mg/dLBorderline High Cholesterol: 200-239 mg/dLHigh Cholesterol: greater than 239 mg/dL LDL Cholesterol Calculated 120(H) <100 mg/dL [facility] Comment:Desirable LDL: less than 100 mg/dLNear Optimal/Above Optimal LDL: 110- 129 mg/dLBorderline High LDL: 130-159 mg/dLHigh LDL: 160-189 mg/dLVery High LDL: greater than or equal to 190 mg/dL HDL Cholesterol 50 >40 mg/dL [facility] Comment:Desirable HDL: great er than 40 mg/dL Note: This HDL assay may give artificially low results in patients with liver disease. 04/26/2024 8:28 AM EDT 04/26/2024 8:28 AM EDT us Generic External Data Provider LAB BLOOD ORDERAB LES Final Result [facility] [address] [place] [phone] * Hm Colonoscopy (03/18/2024) Colonoscopy Normal Normal 03/18/2024 us Morales Ly MD HEALTH MAINTENANCE Final Result * BI Mammogram Screening Tomosynthesis Bilateral (10/11/2022 12:03 PM EDT) Anatomical Region Laterality Modality Breast Bilateral Mammography 10/11/2022 12:0 3 PM EDT Narrative 10/12/2022 5:03 PM EDT ? [facility] [facility] ? [address] ?[place] [address] ? Mammography Report ? Signed ? Patient: Lara Ortega,Traci ?MR#: [id number] ?? [id number] ? : 1975 ?Acct:[id number] ? Age/Sex: 47 / F ?ADM Date: 10/11/22 ? Loc: HO.MAMMO ? Attending Dr: Celso Galo CNM ? Ordering Physician: CELSO GALO CNM ?Results: 1 ?? Negative ? Date of Service: 10/11/22 ?Follow Up: 1 Year From Orig ?? inal Mammogram ? Procedure(s): MM tomosynthesis screening BI ?? Accession Number(s): [id number] ? cc: CELSO GALO CNM ? EXAMINATION: [...] Song MD in OV> ?10/12/221699 ? DD/ 1203 ? TD/TT: ? Educational Resource Center Teacher: ARRIAGA ? Procedure Note Nikki Ortiz - 10/12/2022 [facility] [address] [place], [place] [address] Mammography Report Signed Patient: Traci Dahl#: [id number] : 1975Acct:[id number] Age/Sex: 47 / FADM Date: 10/11/22 Loc: HO.MAMMO Attending Dr: Celso Galo CNM Ordering Physician: CELSO GALOesults: 1 Negative Date of Service: 10/11/22Follow Up: 1 Year From Orig inal Mammogram Procedure(s): MM tomosynthesis screening BI Accession Number(s): [id number] cc: CELSO GALO CNM EXAMINATION: MM SCREENING [...] in OV> 10/12/22 1700 DD/ 1203 TD/TT: Educational Resource Center Teacher: ARRIAGA [facility] External Provider IMG BI PROCEDURES Final Result * THINPREP TIS PAP AND HPV mRNA E6/E7 WITH REFLEX TO HPV 16,18/45 (07/12/2021 10:33 AM EST) Clinical Information: None given [facility] COMMENT SEE COMMENT [facility] ON [...] has been evaluated with computer assisted technology. [facility] Finishing Operator: SEE COMMENT [facility] Comment: YP, CT(ASCP) CT screening location: [address] ??[address] HPV nRNA E6/E7 Not Detected Not Detected [facility] Comment: Methodology: Tile Grinder-Mediated Amplification This assay detects E6/E7 viral messenger RNA (mRNA) from 14 high-risk HPV types (16,18,31,33,35,39,45,51,52,56,58,59,66,68). ? The analytical performance characteristics of this assay have been determined by [employer]. The modifications have not been cleared or approved by the FDA. This assay has been validated pursuant to the CLIA regulations and is used for clinical purposes. ?? For additional information, please refer to http://education.[employer]/faq/LRT611f2 (This link if provided for information/ educational [...] Galo CNM LAB PATHOLOGY ORDERABLES Final Result [facility] [address] from Last 3 Months or Most Recently Relevant to Health Maintenance Insurance [facility] C3 Care Teams Cruise Guide Relationship Specialty Start Date End Date Name, MD Morales [address] [place], [place] PCP - General Family Medicine 07/01/21
--- OUTSIDE RECORDS SUMMARY | 2024-11-14 06:25 | XMS_ITS ---
Author Organization [facility] Address [address] [place] [address] Care Team Providers Care Mechanical Systems Design Engineer Name Role Phone Linda Lopez Primary Care Provider Unavailab Jamarcus Lopez [phone] REASON FOR VISIT Patient presents today for HEMMORHAGE Encounters Encounter Location Date Provider Diagnosis [facility] [address] [place] [address] 08/07/2024 Jamarcus Banda Plan Of Treatment Next Appt Details Provider Name:Jamarcus Banda , 12/05/2024 11:00:00 AM, [address], [address], [place], [address], Progress Notes * CHUCHO HOLMDOB:[birth year] (49 yo F)Acc No.[id number]:08/07/2024 Progress Notes Patient:?CHUCHO HOLM Provider:?Jamarcus Banda MD :1975???Age:49 Y???Sex:Female D ate:08/07/2024 Address:[address] [place] Pcp:Linda Howell Subjective: * Chief Complaints: * [...] MD Date:? 025 Generated for Kalpana marx/Cadence/Dez on:?11/14/2024 06:24 AM EDT
--- OUTSIDE RECORDS SUMMARY | 2024-11-14 06:25 | XMS_ITS ---
Author Organization [facility] Address [address] [place] [address] Care Team Providers Care Classifier Name Role Phone Linda Lopez Primary Care Provider UnavailJamarcus Bermeo [phone] REASON FOR VISIT pathology Encounters Encounter Location Date Provider Diagnosis [facility] [address] [place] [address] 04/03/2024 Jamarcus Banda Plan Of Treatment Next Appt Details Provider Name:Jamarcus Banda , 12/05/2024 11:00:00 AM, [address], [address], [place], [address], Progress Notes * CHUCHO HOLMDOB:[birth year] (48 yo F)Acc No.[id number]:04/03/2024 Patient:?CHUCHO HOLM :1975???Age:48 Y???Sex:Female Address:[address] [place] [address] [address], [place], [address] * true * Date:? Generated for Printi francisco j/Cadence/eTransmitting on:?11/14/2024 06:25 AM EDT
--- OUTSIDE RECORDS SUMMARY | 2024-11-14 06:25 | XMS_ITS | Encounter Summary ---
Author Organization [employer] Address [address] [place] [address] Care Team Providers Care Office Lead Name Role Phone Name, Morales RAMSEY Primary Care Provider [phone] Reason for Visit * Reason Onset Date Comments January recalls 11/13/2024 Encounter Details Date Type Department Care Team (Late st Contact Info) Description 11/13/2024 Telephone [facility] [address] [place] [address] Yumiko Fabian MA January recalls Social History Tobacco Use Types Packs/Day Years [...] encounter Miscellaneous Notes * Telephone Encounter - Yumiko Fabian MA - 11/13/2024 10:06 AM EDT Telephone call to patient to schedule the following recall: Visit type: Follow up Appointment notes: pre- dm Patient agree to appointment on 02/19/25 at 10:45 AM with Name. documented in this encounter Plan of Treatment Upcoming Encounters Date Type Department Care Team (Late st Contact Info) Description 02/19/2025 10:45 AM EDT Office Visit [facility] [address] [place] [address] Name, MD Morales [address] [place] [address] documented as of this encounter Visit Diagnoses Not on filedocumented in this encounter Additional Health Concerns Assessment Noted Time PHQ-9 Depression Total Score: 10 025 10:51 AM EDT documented as of this encounter Care Teams Office Lead Relationship Specialty Start Date End Date NameMorales MD [address] [place] [address] PCP - General Family Medicine 07/01/21 documented as of this encounter
--- OUTSIDE RECORDS SUMMARY | 2024-11-14 06:25 | XMS_ITS | Patient Health Record ---
Author Organization [facility] Address [address] [place] [address] Care Team Providers Care Order Tracer Name Role Phone Linda Lopez Primary Care Provider Jamarcus Anderson [phone] Allergies Allergen (clinical drug ingredient) Drug/Non Drug Allergy documented on EMR Reaction Allergy Type Onset Date Status PredniSONE Unknown Drug Allergy Active naproxen Naproxen Unknown Drug Allergy Active Motrin Unknown Drug Allergy Active Results Component Value Reference Range Notes Pathology Reviewed date:04/03/2024 08:25:28 AM Interpretation: Performing Lab:[facility], [address] [place] [address] Notes/Report: Name: Gretchen Holm Age/Sex: 48/F : 1975 Unit#: [id number] Attend Dr: Paolo Olivas MD Re03/17/24 Status : DIS IN Location: [facility] 450-1 Disch: 03/23/24 SPEC : [id number] RECD : 03/25/24 STATUS: CHELSEA MANCINI NUM: [id number] GRANT: 03/22/24-1432 [facility] DR: Kameron Olivo MD ENTERED: 03/25/24 SP TYPE: Surgical OTHR DR: Paolo Olivas MD Name,Morales RAMSEY ORDERED: HE Stain/3, Gross Micro L4, IHC, H. pylori Addendum Addendum 1 Entered: 03/28/24 Immunostain for H. p ylori is negative. Control stains appropriately. Addendum Signed ____ __(signature on file) Priti Robeline 03/28/241123 Diagnosis Gastric antrum, biop sy: Gastric [...] examinat ion, 3 pieces in cassette [facility] studies orde red and performed: Immunostain for H. pylori on A1. CONTINUED ON NEXT PAGE Name: Gretchen Holm Age/Sex: 48/F : 1975 Unit#: [id number] Attend Dr: Paolo Olivas MD Re03/17/24 Status : DIS IN Location: [facility] 450-1 Disch: 03/23/24 SPEC : [id number] RECD : 03/25/24 STATUS: CHELSEA MANCINI NUM: [id number] GRANT: 03/22/24-2 [facility] DR: Kameron Olivo MD ENTERED: 03/25/24- 15 SP TYPE: Surgical OTHR DR: Paolo Olivas MD Name,Morales RAMSEY ORDERED: HE Stain/3, Gross Micro L4, IHC, H. pylori Copies To: Kameron Olivo MD [facility] [address] [place] [address] Paolo Olivas MD [address] [place] [address] Name,Morales RAMSEY [address] [place] [address] [phone] Signed (si gnature on file) Priti Ellis 03/26/24 1035 END OF REPORT Reason For Referral Referring Provider First Name Morales Referring Provider Last Name Name Referring Provider Speciality Internal M edicine Referred Organization [facility] Referred Provider Jamarcus Banda Referred Address [address] [place] [address],[place], [place],[address], Referred Provider Specialty Gastroentero logy Referral Priority Routine Medications Medication SIG (Take, Route, Frequency, Duration) Notes Start Date End Date Status Albuterol Active Omeprazole 20 MG 1 capsule Orally Onc e a day Active Dclrgteqqz-BEOZ-Wftvdmvt 50-325-40 MG TAKE ONE TABLET BY MOUTH [...] Problem Status W/U Status Risk Notes Problem 24223008 Heartburn (R12) Active confirmed Problem 225968221 Gastroesophageal reflux disease, esophagitis presence not specified (K21.9) Active confirmed Problem Esophageal stricture (60298773) Esophageal stricture (K22.2) Active confirmed Problem Diverticulosis l arge intestine w/o perforation or abscess w/o bleeding (K57.30) Active confirmed Encounters Encounter Location Date Provider Diagnosis [facility] [address] [place] [address] 04/03/2024 Jamarcus Banda [facility] [address] [place] [address] 08/05/2024 Jamarcus Banda Plan Of Treatment Pending Test Test Name Order Date GI BIOPSY 01/03/2018 Future Test Test Name Order Date UPPER GI ENDOSCOPY 08/22/2017 Next Appt Details Provider Name:Jamarcus Banda , 12/05/2024 11:00:00 AM, [address] [facility], [address], [place], [address], Insurance Providers Payer Name Payer Address Payer Phone Subscriber Number Group Number Insured Name Patient Relationship to Insured Coverage Start Date Coverage End Date [facility] [address] [place] [address] [id number] CHUCHO HOLM Self - patient is the insured Medical (General) History Medical History History ICD Code Denies UT,CVA,renal disease Hypertension NIDDM Asthma GERD--EGD in 2009 in [facility]--she describes gastritis with probable H.pylori and a hiatal hernia--describes being treated with antibiotics Sleep apnea--uses CPAP Mild diverticulitis on CT scan in 7 Surgical History Surgery Date(Month/Year) Tubal ligation 1997 Cholecystectomy 1997
== END 2024-11-14 06:22 | disposition home or self-care (01) ==
LOC: CF 06:21
PROVIDERS: Visit Provider Internal Medicine
DX: M53.3 Sacrococcygeal disorders, not elsewhere classified (principal)
CPT/HCPCS: 27096; J2003; J2795

== ENCOUNTER 2024-11-14 11:49 | Outpatient (AMB) | payer MEDICAID, SELFPAY ==
[2024-11-14 11:56] VITALS: BP 104/70; PULSE 75; O2SAT 98
--- NOTE | 2024-11-14 11:56 | MHC.OFFVIS ---
Vital Signs 11/14/24 11:56 11/14/24 12:17 Height 5 ft 4 in BP 104/70 104/70 Blood Pressure Location Lt brachial Lt brachial Position Sitting Sitting Pulse 75 74 Pulse Source Pulse Oximeter Pulse Oximeter Pulse Oximetry (%) 98 99 Oxygen Delivery Method Room Air Room Air Intake Visit Reasons: RIGHT DIAGNOSTIC SIJ INJECTION Pediatric Registered Nurse Required: Yes Pediatric Registered Nurse Name: Jacqui Decker.Tessa.Machelle Allergies ibuprofen [From Motrin] Allergy (Intermediate, Verified 11/14/24 11:57) Rash naproxen [Naprosyn] Allergy (Intermediate, Verified 11/14/24 11:57) Rash prednisone [PREDNISONE] Allergy (Intermediate, Verified 11/14/24 11:57) RASH, itching aspirin [ASA] Allergy (Verified 11/14/24 11:57) Rash HPI HPI RIGHT DIAGNOSTIC SIJ INJECTION: Details: Patient presents for scheduled procedure. Denies any recent cough, cold, infection, fever or other significant changes in medical history since last office visit. [facility] Medical History Pre-diabetes GERD (gastroesophageal reflux disease) Hiatal hernia HTN (hypertension) Vitamin deficiency Fatigue Diaphragmatic hernia Dyspareunia in female Heavy menstrual bleeding Vitamin B1 deficiency Prediabetes Obstructive sleep apnea treated with continuous positive airway pressure (CPAP) Asthma Acid reflux Umbilical hernia Surgical History S/P laparoscopic sleeve gastrectomy History of delivery History of endoscopy History of umbilical hernia repair (10/06/17) History of cholecystectomy History of tubal ligation Family History Father No problems noted. Mother Diabetes Hypertension FH: mental illness Maternal Grandmother Hypertension Maternal Uncle Cancer Leukemia Family/Other FH: mental illness Son No problems noted. Son Asthma Glaucoma Son No problems noted. 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 Immediately prior to starting the procedure, a time-out safety check was conducted. The patient's identification, procedure name, procedure site, and procedure laterality were confirmed with the patient. ? Patient was placed prone on the fluoroscopy table and the lumbosacral area was prepped using ChloraPrep and draped with sterile draped in standard fashion. The C-arm was rotated in a contralateral oblique fashion until the medial border of the iliac crest no longer foreshadowed the posterior sacroiliac joint line. The skin and subcutaneous tissue was anesthetized using 1 mL of 0.75% plain lidocaine with 1.5-inch 25-gauge needle in the middle region of the joint line. A 3.5-inch 22-gauge spinal needle with small bend on the tip was slowly advanced towards the joint line, coaxial to the x-ray beam. Once bony content was obtained, the needle was easily slid into the intra-articular space.?Intra-articular needle position was confirmed using lateral fluoroscopy.? A total volume of 2.5mL of solution containing 0.5% of ropivacaine was injected intra-articularly. The stylet was reinserted and needle was removed. The patient tolerated the procedure well. Patient denied any lower extremity weakness or numbness. Patient was observed for 30 min and was discharged after fulfilling the standard discharge criteria. Coding 44988 - Sacroiliac Procedure code (CPT) selection complete Assessment & Plan Assessment & Plan (1) Sacroiliac joint pain: Code(s): M53.3 - Sacrococcygeal disorders, not elsewhere classified Category: Medical Plan Patient is status post right diagnostic sacroiliac joint injection. Patient tolerated procedure well and was discharged home in stable condition with discharge instructions. All questions were answered. We will follow-up via telephone or in clinic to assess response to therapy. A follow-up appointment was made during today's visit. Orders: Orders FL guidance in treatment room Today Shilpi Sauceda APRN, SUPERVISOR COMMUNICATIONS AND SIGNALS M53.3 - Sacrococcygeal disorders, not elsewhere classified AMB Joint Injection/Aspiration Today Mikey Horn MD M53.3 - Sacrococcygeal disorders, not elsewhere classified Coding Level of Care Code Procedure Only Diagnoses Sacroiliac joint pain M53.3 CPT Codes Coding - Joint 9: 91264 - Sacroiliac ([id number])
[2024-11-14 12:17] VITALS: BP 104/70; PULSE 74; O2SAT 99
--- OUTSIDE RECORDS SUMMARY | 2024-11-14 13:22 | XMS_ITS | Encounter Summary ---
Author Organization [employer] Address [address] [place] [address] Care Team Providers Care Coatings Inspector Name Role Phone Name, Morales RAMSEY Primary Care Provider [phone] Reason for Visit * Reason Onset Date Comments January recalls 11/13/2024 Encounter Details Date Type Department Care Team (Late st Contact Info) Description 11/13/2024 Telephone [facility] [address] [place] [address] Yumiko Fabian [place] January recalls Social History [...] Description 02/19/2025 10:45 AM EDT Office Visit [facility] [address] [place] [address] Name, MD Morales [address] [place] [address] documented as of this encounter Visit Diagnoses Not on filedocumented in this encounter Additional Health Concerns Assessment Noted Time PHQ-9 Depression Total Score: 10 025 10:51 AM EDT documented as of this encounter Care Teams Coatings Inspector Relationship Specialty Start Date End Date NameMorales MD [address] [place] [address] PCP - General Family Medicine 07/01/21 documented as of this encounter
--- OUTSIDE RECORDS SUMMARY | 2024-11-14 13:22 | XMS_ITS ---
Author Organization [employer] Address [address] [place] [address] [address] [place] [address] Care Team Providers Care Sales Officer Name Role Phone Name, Morales RAMSEY Primary Care Provider [phone] [facility] Complex Status:Enrolled (Active) Start date:09/25/2024 Enrollment date:10/14/2024 Enrollment reason:ADT Feed Overview [facility] [place] Case Team Name Relationship Phone Mirlande Lopez (Responsible Staff) [phone] Continued Care and Services Coordination
--- OUTSIDE RECORDS SUMMARY | 2024-11-14 13:22 | XMS_ITS | Clinical Summary ---
Author Organization [facility] Address [address] [place] [address] Care Team Providers Care Bias Machine Operator Helper Name Role Phone Unavailable Primary Care Provider [...] Vaccine 02/07/2025 Insurance MEDICAID OUT OF STATE [facility] on file
--- OUTSIDE RECORDS SUMMARY | 2024-11-14 13:22 | XMS_ITS ---
Author Organization [employer] Address [address] [place] [address] [address] [place] [address] Care Team Providers Care Metal Window Screen Assembler Name Role Phone Name, Morales RAMSEY Primary Care Provider [phone] CM Complex Status:Enrolled (Active) Start date:09/25/2024 Enrollment date:10/14/2024 Enrollment reason:ADT Feed Overview ED- [place] [facility] [place]. Case Team Name Relationship Phone Yesica Palencia RN Registered Nurse(Responsible S taff) [phone] Continued Care and Services Coordination
--- OUTSIDE RECORDS SUMMARY | 2024-11-14 13:22 | XMS_ITS | Clinical Summary ---
Author Organization [employer] Address [address] [place] [address] 7[address] [place] [address] Care Team Providers Care Jewel Gauger Name Role Phone Name, Morales RAMSEY Primary Care Provider [phone] Allergies Active Allergy Reactions Criticality Noted Date [...] Patient to reach out to [facility] team as needed, Patient to engage in OP therapy , and Patient to reach out to [facility] as needed S/P laparoscopic sleeve gastrectomy 08/12/2022 Overview (08/12/2022): Dr. Ortiz, [facility], 07/2022 Chronic low back pain 06/18/2022 Dysmenorrhea 06/18/2022 Esophageal dysphagia 06/18/2022 Hypertensive disorder 06/18/2022 Lower esophageal ring 06/18/2022 Morbid obesity 06/18/2022 Pain in pelvis 06/18/2022 Umbilical hernia 06/18/2022 Prediabetes 08/23/2021 Encounters Date Type Department Care Team Description 11/13/[address] [address] Yumiko Fabian [place] January recalls 11/04/2024 10:45 AM EDT Office Visit [address] [address] Morales Ly MD Iron deficiency anemia, unspecified iron deficiency anemia type (Primary Dx); Menorrhagia with irregular cycle; History of GI bleed; Migraine without aura and without status migrainosus, not intractable; Seasonal allergies; Seborrheic keratosis; Chronic right-sided low back pain, unspecified whether sciatica present 11/04/2024 Travel 11/01/2024 Patient Outreach [facility] [address] [place] [address] Morales Ly MD 11/01/[address] [address] Morales Ly MD CHART PREP 11/01/2024 Patient Outreach [facility] [address] [place] [address] Morales Ly MD 10/31/2024 Patient Outreach [address] [address] Morales Ly MD 10/31/2024 Patient Outreach [facility] [address] [place] [address] Morales Ly MD Care Coordination (C3/CM F/U) 10/24/2024 Patient Outreach [address] [address] Morales Ly MD 10/14/2024 Telephone [facility] [address] [place] [address] Morales Ly MD Care Coordination ([facility] referral) 10/14/2024 Plan of Care Documentation [address] [address] 10/14/2024 Patient Outreach [facility] [address] [place] [address] Morales Ly MD Care Coordination ([facility] initial assessment/ enrollment) 10/11/2024 Patient Outreach [address] [address] Morales Ly MD Care Coordination (Outreach) 10/02/[address] [address] Morales Ly MD Results 09/27/2024 11:15 AM EDT Office Visit [address] [address] Xi Johnson NP Lumbar radiculopathy (Primary Dx) 09/27/2024 Travel 09/25/2024 Patient Outreach [address] [address] Morales Ly MD 09/25/2024 Patient Outreach [address] [address] Morales Ly MD Care Coordination (C3/CM Outreach) 09/25/[address] [address] Morales Ly MD Nurse Triage; ER Follow-up 09/25/2024 Patient Outreach [address] [address] Morales Ly MD 09/25/2024 Patient Outreach [address] [address] Morales Ly MD Care Coordiantion 09/25/2024 Patient Outreach [facility] [address] [place] [address] NameMorales MD Care Coordination (C3CM Chart review) 09/25/2024 Patient Outreach [facility] [address] [place] [address] Morales Ly MD 09/24/2024 10:00 AM EDT Office Visit [facility] [address] [place] [address] Denny Bocanegra MD Acute bilateral low back pain with right-sided sciatica (Primary Dx); Hypertension, unspecified type 09/20/2024 Population Health Risk Score [facility] Care [facility] (C3) Department [address] [place] [phone] Provider, Population Health Generic 09/10/2024 9:00 AM EST [facility] [address] [place] [address] Denny Bocanegra MD Left elbow pain (Primary Dx); Elbow injury, left, initial encounter; Finger pain, right 09/09/2024 Orders Only [facility] External Provider, [facility] from Last 3 Months Immunizations Name [...] Description 02/19/2025 10:45 AM EDT Office Visit [facility] [address] [place] [address] Name, MD Morales [address] [place] [address] Health Maintenance Due Date Last Done Comments [...] EDT) Iron 78 30 - 160 mcg/dL [facility] Total Iron Binding Capacity 305 228 - 428 mcg/dL [facility] Percent Iron Saturation 26 15 - 50 % [facility] Unsaturated Iron Binding 227 ug/dL [facility] Blood Venous blood specimen / Unknown 11/04/2024 11:11 AM EDT 11/04/2024 1:07 PM EDT us Morales Ly MD LAB BLOOD ORDERABLES Final Resul t [facility] [address] [place] [phone] * Ferritin (11/04/2024 11:11 AM EDT) Ferritin 17 10 - 250 ng/mL [facility] Blood Venous blood specimen / Unknown 11/04/2024 11:11 AM EDT 11/04/2024 1:07 PM EDT us Morales Name MD LAB BLOOD ORDERABLES Final Resul t [facility] [address] [place] [address] [phone] * CBC auto differential (11/04/2024 11:10 AM EDT) White Blood Count 5.3 4.8 - 10.8 X10*3/uL [facility] Red Blood Count 4.53 4.20 - 5.50 X10*6/uL [facility] Hemoglobin 12.8 12.0 - 16.0 g/dl [facility] Hematocrit 39.7 37.0 - 47.0 % [facility] Mean Corpuscular Volume 87.6 80.0 - 98.0 fL [facility] Mean Corpuscular Hemoglobin 28.3 27.0 - 33.0 pg [facility] Mean Corpuscular HGB Conc 32.2 31.0 - 35.0 g/dl [facility] Red Cell Distribution Width 13.4 11.0 - 16.0 % [facility] Platelet Count 340 160 - 400 X10*3/uL [facility] Mean Platelet Volume 9.6 9.4 - 12.3 fL [facility] Neutrophils Percent Auto 58.2 45 - 73 % [facility] Imm Gran Pct Auto 0.4 0.0 - 0.4 % [facility] Lymphocytes Percent Auto 31.6 20 - 40 % [facility] Monocytes Percent Auto 6.8 2 - 11 % [facility] Eosinophils Percent Auto 1.9 0 - 4 % [facility] Basophils Percent Auto 1.1 0 - 2 % [facility] NRBC Pct Auto 0.0 0.0 - 0.2 /100WBC [facility] Neutrophils Absolute Auto 3.1 2.0 - 8.3 x10*3/uL [facility] Imm Gran Abs Auto 0.02 0.00 - 0.03 X10*3/uL [facility] Lymphocytes Absolute Auto 1.7 1.2 - 4.9 X10*3/uL [facility] Monocytes Absolute Auto 0.4 0.1 - 1.2 X10*3/uL [facility] Eosinophils Absolute Auto 0.1 0.0 - 0.4 X10*3/uL [facility] Basophils Absolute Auto 0.1 0.0 - 0.2 X10*3/uL [facility] NRBC Abs Auto 0.000 0.0 - 0.012 X10*3/uL [facility] Blood Venous blood specimen / Unknown 11/04/2024 11:10 AM EDT 11/04/2024 1:07 PM EDT us Morales Name MD LAB BLOOD ORDERABLES Final Resul t [facility] [address] [place] [address] [phone] * MR Lumbar Spine w/o Contrast (10/01/2024 6:57 PM EDT) Anatomical Region Laterality Modality Spine, L-spine Magnetic Resonan ce 10/01/2024 6:57 PM EDT Narrative 10/01/2024 6:59 PM EDT ? [facility] ?[address] ?[place] [address] ? Magnetic Resonance Report ? Signed ? Patient: Traci Dahl ?MR#: [id number] ?? [id number] ? : 1975 ?Acct:[id number] ? Age/Sex: 49 / F ?ADM Date: 03/25/25 ? Loc: HO.MRI ? Attending Dr: Xi Johnson ? Ordering Physician: Xi Johnson ?? Date of Service: 10/01/24 ?? Procedure(s): MR lumbar spine wo con ?? Accession Number(s): [id number] ? cc: Xi Johnson; Name,Morales RAMSEY ? [...] ? DD/ 56 ? TD/TT: 10/01/241856 ? H[employer] Special[employer]er: ? Procedure Note Diana, Image - 10/01/2024 [place] [address] Magnetic Resonance Report Signed Patient: Traci DahlMR#: [id number] : 1975Acct:[id number] Age/Sex: 49 / FADM Date: 10/01/24 Loc: HO.MRI Attending Dr: Xi Johnson Ordering Physician: Xi Johnson Date of Service: 10/01/24 Procedure(s): MR lumbar spine wo con Accession Number(s): [id number] cc: Xi Johnson; Name,Morales RAMSEY CLINICAL HISTORY: [...] in OV> 10/01/241858 DD/ 56 TD/TT: 10/01/241856 [employer] Special[employer]er: us Xi Johnson NP IMG MRI PROCEDURES Edited Resul t - Final * XR Lumbar Spine 2-3 Views (09/24/2024 11:20 AM EDT) Anatomical Region Laterality Modality Spine, L-spine Radiographic Kimi ging 09/24/2024 11:2 0 AM EDT Narrative 09/24/2024 11:52 AM EDT ? [facility] ?[address] ?[place] [address] ?XRay Report ? Signed ? Patient: Lara Ortega,Traci ?MR#: [id number] ?? [id number] ? : 1975 ?Acct:[id number] ? Age/Sex: 49 / F ?ADM Date: 03/18/25 ? Loc: HO.ED ? Attending Dr: ? Ordering Physician: Frida Gong ?? Date of Service: 09/24/24 ?? Procedure(s): XR lumbar spine 2-3V ?? Accession Number(s): [id number] ? cc: Frida Gong; Name,Morales RAMSEY ? [...] DD/ 1120 ? TD/TT: 09/24/24 1129 ? H[employer] Specialty Grower: ? Procedure Note Nikki Ortiz - 09/24/2024 [place] [address] XRay Report Signed Patient: Traci DahlMR#: [id number] : 1975Acct:[id number] Age/Sex: 49 / FADM Date: 09/24/24 Loc: HO.ED Attending Dr: Ordering Physician: Frida Gong Date of Service: 09/24/24 Procedure(s): XR lumbar spine 2-3V Accession Number(s): [id number] cc: Frida Gong; Name,Morales RAMSEY EXAMINATION: XR [...] 09/24/24 1149 DD/ 1120 TD/TT: 09/24/24 1129 H[employer] Specialty Grower: [facility] External Provider IMG XR PROCEDURES Final Result * MR Shoulder w/o Contrast Right (09/11/2024 2:40 PM EST) Anatomical Region Laterality Modality Upper Extremities, Shoulder Right Magn etic Resonance 09/11/2024 2:40 PM EST Narrative 09/11/2024 2:42 PM EST ? [facility] ?[address] ?[place] [address] ? Magnetic Resonance Report ? Signed ? Patient: Traci Dahl ?MR#: [id number] ?? [id number] ? : 1975 ?Acct:[id number] ? Age/Sex: 49 / F ?ADM Date: 09/09/24 ? Loc: HO.MRI ? Attending Dr: Best Sierra MD ? Ordering Physician: Best Sierra MD ?? Date of Service: 09/09/24 ?? Procedure(s): MR shoulder RT wo con ?? Accession Number(s): [id number] ? cc: Name,Morales RAMSEY; Best Sierra MD [...] DD/ 1440 ? TD/TT: 09/11/24 1440 ? H[employer] Specialty Grower: ? Procedure Note Donotuseinterpreter, Image - 09/11/2024 [place] [address] Magnetic Resonance Report Signed Patient: Traci Dahl#: [id number] : 1975Acct:[id number] Age/Sex: 49 / FADM Date: 09/09/24 Loc: HO.MRI Attending Dr: Best Sierra MD Ordering Physician: Best Sierra MD Date of Service: 09/09/24 Procedure(s): MR shoulder RT wo con Accession Number(s): [id number] cc: Name,Morales RAMSEY; Best Sierra MD CLINICAL [...] 09/11/24 1442 DD/ 1440 TD/TT: 09/11/24 1440 [employer] Specialty [employer]er: [facility] External Provider IMG MRI PROCEDURES Edited Result - Final * XR Fingers 2+ Views Right (09/10/2024 9:28 AM EST) Anatomical Region Laterality Modality Upper Extremities, Fingers Right Radio graphic Imaging 09/10/2024 9:28 AM EST Narrative 09/10/2024 10:05 AM EST ?[facility] ?[address] ?[place] [address] ?XRay Report ? Signed ? Patient: Traci Dahl ?MR#: [id number] ?? [id number] ? : 1975 ?Acct:[id number] ? Age/Sex: 49 / F ?ADM Date: 09/10/24 ? Loc: HO.HHCX ? Attending Dr: Denny Bocanegra MD ? Ordering Physician: DENNY BOCANEGRA MD ?? Date of Service: 09/10/24 ?? Procedure(s): XR finger RT min 2V ?? Accession Number(s): [id number] ? cc: DENNY BOCANEGRA MD ? EXAMINATION: [...] DD/ 0928 ? TD/TT: 09/10/24 0950 ? H[employer] Specialty Grower: ? Procedure Note Diana, Image - 09/10/2024 [place] [address] XRay Report Signed Patient: Traci DahlMR#: [id number] : 1975Acct:[id number] Age/Sex: 49 / FADM Date: 09/10/24 Loc: HO.HHCX Attending Dr: Denny Bocanegra MD Ordering Physician: DENNY BOCANEGRA MD Date of Service: 09/10/24 Procedure(s): XR finger RT min 2V Accession Number(s): [id number] cc: DENNY BOCANEGRA MD EXAMINATION: XR FINGER, [...] 09/10/24 1002 DD/ 7 TD/TT: 09/10/24 0950 H[employer] Specialty [employer]er: us Denny Bocanegra MD IMG XR PROCEDURES Final Result * XR Elbow 3+ Views Left (09/10/2024 9:28 AM EST) Anatomical Region Laterality Modality Upper Extremities, Elbow Left Radiogr aphic Imaging 09/10/2024 9:28 AM EST Narrative 09/10/2024 10:05 AM EST ?[facility] ?[address] ?[place] [address] ?XRay Report ? Signed ? Patient: Traci Dahl ?MR#: [id number] ?? [id number] ? : 1975 ?Acct:[id number] ? Age/Sex: 49 / F ?ADM Date: 09/10/24 ? Loc: HO.HHCX ? Attending Dr: Denny Bocanegra MD ? Ordering Physician: DENNY BOCANEGRA MD ?? Date of Service: 09/10/24 ?? Procedure(s): XR elbow LT min 3V ?? Accession Number(s): [id number] ? cc: DENNY BOCANEGRA MD ? EXAMINATION: [...] 09/10/ 0928 ? TD/TT: // 0950 ? H[employer] Specialty Grower: ? Procedure Note Donotuseinterpreter, Image - 09/10/2024 [facility] [address] [place] [address] XRay Report Signed Patient: Traci DahlMR#: [id number] : 1975Acct:[id number] Age/Sex: 49 / FADM Date: 09/10/24 Loc: HO.HHCX Attending Dr: Denny Bocanegra MD Ordering Physician: DENNY BOCANEGRA MD Date of Service: 09/10/24 Procedure(s): XR elbow LT min 3V Accession Number(s): [id number] cc: DENNY BOCANEGRA MD EXAMINATION: XR ELBOW, [...] 09/10/24 1003 DD/ 0928 TD/TT: 09/10/24 0950 [employer] Specialty Grower: us Denny Bocanegra MD IMG XR PROCEDURES Final Result * XR Shoulder 2+ Views Right (08/19/2024 9:25 AM EST) Anatomical Region Laterality Modality Upper Extremities, Shoulder Right Radi ographic Imaging 08/19/2024 9:25 AM EST Narrative 08/19/2024 9:56 AM EST ?[facility] ?[address] ?[place] [address] ?XRay Report ? Signed ? Patient: Lara Ortega,Traci ?MR#: [id number] ?? [id number] ? : 1975 ?Acct:[id number] ? Age/Sex: 49 / F ?ADM Date: 08/19/24 ? Loc: HO.HHCX ? Attending Dr: Denny Bocanegra MD ? Ordering Physician: DENNY BOCANEGRA MD ?? Date of Service: 08/19/24 ?? Procedure(s): XR shoulder RT min 2V ?? Accession Number(s): [id number] ? cc: DENNY BOCANEGRA MD ? EXAMINATION: [...] ? DD/ 4 ? TD/TT: 08/19/2449 ? H[employer] Specialty Grower: ? Procedure Note Diana, Image - 08/19/[address] [address] XRay Report Signed Patient: Traci DahlMR#: [id number] : 1975Acct:[id number] Age/Sex: 49 / FADM Date: 08/19/24 Loc: HO.HHCX Attending Dr: Denny Bocanegra MD Ordering Physician: DENNY BOCANEGRA MD Date of Service: 08/19/24 Procedure(s): XR shoulder RT min 2V Accession Number(s): [id number] cc: DENNY BOCANEGRA MD EXAMINATION: XR SHOULDER [...] in OV> 08/19/2454 DD/ 4 TD/TT: 08/19/2449 Horticultural Specialty Grower: Denny Bocanegra MD IMG XR PROCEDURES Edited Result - Final * Hemoglobin A1c (04/26/2024 8:28 AM EDT) Hemoglobin A1c 4.9 <6.0 % [facility] Comment:Hemoglobin A1C Refer ence Range Adults: 4.8 - 6.0 % Non diabetic: < 6.0 % Goal: < 7.0 %Additional Action Suggested: > 8.0 %Note: Hemoglobin A1c results are invalid for patients with abnormal amounts of HbF. Blood transfusions may impact the HbA1c concentration in the patient sample. Estimated Average Glucose 94 mg/dL [facility] Comment:eAG = Estimated ave rage glucose which is %A1C expressed asaverage glucose, using the formula of the U6P-NrxpkwwMvlyeka Glucose study (ADAG), Diabetes Care, Vol.31,#8,Feb. 2007 04/26/2024 8:28 AM EDT 04/26/2024 8:28 AM EDT us Generic External Data Provider LAB BLOOD ORDERAB LES Final Result [facility] [address] [place] [phone] * (ABNORMAL) Lipid Panel, Standard (04/26/2024 8:28 AM EDT) Triglycerides 80 <150 mg/dL [facility] Comment:Desirable Triglyceri de: less than 150 mg/dLBorderline High Triglyceride 150-199 mg/dLHigh Triglyceride: 200-499 mg/dLVery High Triglyceride: greater than or equal to 5OO mg/dL Cholesterol 186 <200 mg/dL [facility] Comment:Desirable Cholestero l: less than 200 mg/dLBorderline High Cholesterol: 200-239 mg/dLHigh Cholesterol: greater than 239 mg/dL LDL Cholesterol Calculated 120(H) <100 mg/dL [facility] Comment:Desirable LDL: less than 100 mg/dLNear Optimal/Above Optimal LDL: 110- 129 mg/dLBorderline High LDL: 130-159 mg/dLHigh LDL: 160-189 mg/dLVery High LDL: greater than or equal to 190 mg/dL HDL Cholesterol 50 >40 mg/dL [facility] Comment:Desirable HDL: great er than 40 mg/dL Note: This HDL assay may give artificially low results in patients with liver disease. 04/26/2024 8:28 AM EDT 04/26/2024 8:28 AM EDT us Generic External Data Provider LAB BLOOD ORDERAB LES Final Result [facility] [address] [place] [phone] * Hm Colonoscopy (03/18/2024) Colonoscopy Normal Normal 03/18/2024 us Morales Ly MD HEALTH MAINTENANCE Final Result * BI Mammogram Screening Tomosynthesis Bilateral (10/11/2022 12:03 PM EDT) Anatomical Region Laterality Modality Breast Bilateral Mammography 10/11/2022 12:0 3 PM EDT Narrative 10/12/2022 5:03 PM EDT ? [place] [facility] ? [address] ?[place] [address] ? Mammography Report ? Signed ? Patient: Lara Ortega,Traci ?MR#: [id number] ?? [id number] ? : 1975 ?Acct:[id number] ? Age/Sex: 47 / F ?ADM Date: 10/11/22 ? Loc: HO.MAMMO ? Attending Dr: Celso Galo CNM ? Ordering Physician: CELSO GALO CNM ?Results: 1 ?? Negative ? Date of Service: 10/11/22 ?Follow Up: 1 Year From Orig ?? inal Mammogram ? Procedure(s): MM tomosynthesis screening BI ?? Accession Number(s): [id number] ? cc: CELSO GAOL CNM ? EXAMINATION: ?? MM SCREENING DIGITAL [...] ?10/12/221699 ? DD/ 1203 ? TD/TT: ? Horticultural Specialty Grower: ARRIAGA ? Procedure Note Nikki Ortiz - 10/12/2022 [facility] [address] [place] [place] [address] Mammography Report Signed Patient: Traci Dahl#: [id number] : 1975Acct:[id number] Age/Sex: 47 / FADM Date: 10/11/22 Loc: HO.MAMMO Attending Dr: Celso Galo CNM Ordering Physician: CELSO GALOesults: 1 Negative Date of Service: 10/11/22Follow Up: 1 Year From Orig inal Mammogram Procedure(s): MM tomosynthesis screening BI Accession Number(s): [id number] cc: CELSO GALO CNM EXAMINATION: MM SCREENING [...] in OV> 10/12/22 1700 DD/ 1203 TD/TT: Horticultural Specialty Grower: ARRIAGA [facility] External Provider IMG BI PROCEDURES Final Result * THINPREP TIS PAP AND HPV mRNA E6/E7 WITH REFLEX TO HPV 16,18/45 (07/12/2021 10:33 AM EST) Clinical Information: None given [facility] COMMENT SEE COMMENT [facility] ON [...] has been evaluated with computer assisted technology. [facility] Senior Outside Sales Representative: SEE COMMENT [facility] Comment: YP, CT(ASCP) CT screening location: [address] ??[address] HPV nRNA E6/E7 Not Detected Not Detected [facility] Comment: Methodology: Folding Machine Tender-Mediated Amplification This assay detects E6/E7 viral messenger RNA (mRNA) from 14 high-risk HPV types (16,18,31,33,35,39,45,51,52,56,58,59,66,68). ? The analytical performance characteristics of this assay have been determined by [email or web address]. The modifications have not been cleared or approved by the FDA. This assay has been validated pursuant to the CLIA regulations and is used for clinical purposes. ?? For additional information, please refer to http://education.[employer]/faq/DZD852w0 (This link if provided for information/ educational [...] Galo CNM LAB PATHOLOGY ORDERABLES Final Result [facility] [address] from Last 3 Months or Most Recently Relevant to Health Maintenance Insurance [facility] C3 Care Teams Jewel Gauger Relationship Specialty Start Date End Date Name, MD Morales [address] [place], [place] PCP - General Family Medicine 07/01/21
--- OUTSIDE RECORDS SUMMARY | 2024-11-14 13:22 | XMS_ITS | Encounter Summary ---
Author Organization [employer] Address [address] [place] [address] Care Team Providers Care Classroom Instructor Name Role Phone Name, Morales RAMSEY Primary Care Provider [phone] Reason for Visit * Reason Onset Date Comments Hospital Follow-up 03/29/2024 Encounter Details Date Type Department Care Team ([facility] st Contact Info) Description 03/29/2024 Telephone [facility] [address] [place] [address] Name, MD Morales [address] [place] [address] Hospital Follow-up Social History Tobacco Use Types [...] EDT Please obtain in patient notes from [facility] admitted 03/17/24 and transfer to [facility] inpatient with diwscharge date of 03/28/24. Hospital discharge follow up appt booked for 04/05/24 Monica CHISHOLM 2pm * Telephone Encounter - Senia Levine LPN - 03/29/2024 10:40 AM EDT Triage call returned to patient with [place] [id number]. Patient discharged from [facility] yesterday. Initial admission to [facility] on 03/17/24 transferred to [facility] after 6 days and discharged to home yesterday. is feeling well. Concerned with Insurance coverage.[employer] active as run today. No new symptoms [...] from pt requesting a HDF appt. Hospital: [facility] Date of admission: 03/17/24 Discharge date: 03/28/24 Diagnosed: Abdominal Pain (Tajik Speaker) documented in this encounter Plan of Treatment Upcoming Encounters Date Type Department Care Team (Late st Contact Info) Description 02/19/2025 10:45 AM EDT Office Visit [facility] [address] [place] [phone] Name, MD Morales [address] [place] [phone] documented as of this encounter Visit Diagnoses Not on filedocumented in this encounter Additional Health Concerns Assessment Noted Time PHQ-9 Depression Total Score: 0 12/16/19 23 11:12 AM EDT documented as of this encounter Care Teams Classroom Instructor Relationship Specialty Start Date End Date Name, MD Morales [address] [place] [phone] PCP - General Family Medicine 07/01/21 documented as of this encounter
--- OUTSIDE RECORDS SUMMARY | 2024-11-14 13:22 | XMS_ITS | Clinical Summary ---
Author Organization [facility] [address] Address [address] [place] [phone] Phone Care Team Providers Care Fitness Management Director Name Role Phone Unavailable Primary Care Provider [...] ?? For additional information please refer to http://education.MOOVIA.VidSchool/faq/MZI636 (This link is being provided for informational/ educational purposes only.) The performance of this assay has not been clinically validated in patients less than 2 years old. Blood 01/29/2024 10:5 5 AM EDT 01/29/2024 10:56 AM EDT Narrative Resulting Agency Comment Performing Lab: ?Site ID: [id number] ?Name: [facility] ?Address: [address] [place] [phone] ?Director: Guilherme Quinteros M.D. Rachael JANE LAB BLOOD ORDERABLES F inal Result Performing Organization Address City/[facility] Co de Phone Number [facility] [address] [place] [address] * Hepatitis C Ab with reflex to HCV PCR (01/29/2024 10:55 AM EDT) Pathologist [facility] [place] Hepatitis C Ab NON-REACT KIERAN NON-REACT KIERAN [facility] Comment: HCV antibody was non-reactive. There is no laboratory evidence of HCV infection. In most cases, no further action is required. However, if recent HCV exposure is suspected, a test for HCV RNA (test code 12560) is suggested. For additional information please refer to http://education.BovControl/faq/ZMN83l3 (This link is being provided for informational/ educational purposes only.) 01/29/2024 10:5 5 AM EDT 01/29/2024 10:56 AM EDT Narrative Resulting Agency Comment Performing Lab: ?Site ID: [id number] ?Name: [facility] ?Address: [address] [place] [phone] ?Director: Guilherme Quinteros M.D. Rachael JANE LAB BLOOD ORDERABLES F inal Result Performing Organization Address [facility] Co de Phone Number [facility] [address] [place] [address] * (ABNORMAL) Lipid panel with reflex to direct LDL (Q) (01/29/2024 10:51 AM EDT) Pathologist [facility] [place] Cholesterol, Total 203(H) <200 mg/dL [facility] [...] LDL-C. Misael SS et al. BELLA. 2013;310(19): 3663-4646 (http://education.eBillme.VidSchool/faq/VWR880) Chol/HDL Ratio 3.6 <5.0 (calc) [facility] Non-HDL Cholesterol 146(H) <130 mg/dL (calc) [facility] Comment: For patients with diabetes plus 1 major ASCVD risk factor, treating to a non-HDL-C goal of <100 mg/dL (LDL-C of <70 mg/dL) is considered a therapeutic option. 01/29/2024 10:5 1 AM EDT 01/29/2024 10:52 AM EDT Narrative Resulting Agency Comment Performing Lab: ?Site ID: [id number] ?Name: [facility] ?Address: [address] [place] [phone] ?Director: Guilherme Quinteros M.D. Rachael JANE LAB BLOOD ORDERABLES F inal Result [facility] [address] [place] [address] * (ABNORMAL) Comprehensive metabolic panel (01/29/2024 10:51 [...] Comment Performing Lab: ?Site ID: [id number] ?Name: [facility] ?Address: [address] [place] [phone] ?Director: Guilherme Quinteros M.D. Rachael JANE LAB BLOOD ORDERABLES F inal Result [facility] [address] [place] [address] from Last 3 Months or Most Recently Relevant to Health Maintenance Insurance [place]
== END 2024-11-14 12:12 | disposition home or self-care (01) ==
PROVIDERS: PCP Internal Medicine Endocrinology, Diabetes & Metabolism; Visit Provider Internal Medicine
DX: M53.3 Sacrococcygeal disorders, not elsewhere classified (principal)
CPT/HCPCS: 27096

== ENCOUNTER 2024-11-21 13:15 | Outpatient (AMB) | payer MEDICAID, SELFPAY ==
--- NOTE | 2024-11-21 13:16 | A.OFFVIS_ITS ---
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 She reports no pain following the right-sided sacroiliac injection performed on 11/14/24. Previously, the patient experienced chronic pain due to scoliosis, spondylosis and degenerative disc disease, with obesity as a contributing factor, although she has undergone bariatric surgery in the past. Her pain has historically been located in the right sacroiliac joint area. Previous interventions include back injections with minimal pain relief but significant relief was noted after recent right sacroiliac joint injection. She is aware that diagnostic injection does not provide sustained pain relief. Patient would like to hold off further interventional treatments at this time as she reports no pain today and will notify our office when her pain returns to baseline. Past Procedures: 11/14/24: Right diagnostic sacroiliac joint injection-100% ongoing pain relief PRIOR: The patient is a 49-year-old Ukrainian speaking female presenting with acute on chronic low back pain radiating to the right leg. The pain has existed for many years with increased intensity one month ago, following a treadmill exercise for a cardiac stress test. The chronic pain is exacerbated by her back conditions, including degenerative disc disease, disc herniation, spondylolisthesis at L4-L5 and scoliosis. In the past, she received an injection, possibly for diagnostic purposes, but it did not alleviate her pain symptoms and minimal relief was less than a week. She reports back injections at [facility] [place] [place] [facility]. Patient denies previous spine surgery. She is planning to undergo right shoulder surgery and is undergoing cardiac clearance with recent abnormal cardiac stress test. The pain originates in the lower back and extends to the right buttock and right anterior leg, with episodes of numbness and weakness reported. She has significant tenderness in the right and minimal in the left sacroiliac joint areas with lateral hip tenderness. The patient's MRI revealed a small central L5-S1 posterior annular tear with central disc bulge, left L5-S1 neural foraminal narrowing, L4-5 anterolisthesis and degenerative change with neural foraminal narrowing. Considering her GI bleed history, gastric bypass and allergy to prednisone, managing her pain poses challenges. Patient reports anxiety and depression are well managed with medications, denies seeing Psychiatrist at this time. Oswestry Low Back Pain Disability Score=24 (moderate disability) - Onset and Timing: Began years ago, significant exacerbation last month following cardiac test on treadmill. - Quality and Character: Chronic, radiating pain. - Primary Location: Lower back. - Areas of Radiation: Right leg, primarily towards the anterior thigh and lateral rao. - Exacerbating Factors: Exercise (e.g., treadmill stress test), climbing stairs, walking, bending forward. - Relieving Factors: Minimal relief with Tylenol and Flexeril; past treatments such as injections were ineffective. - Interference with Activities: Pain severity impacts mobility and daily activities. - Affect: Anxiety and depression exacerbate pain perception. - Analgesia: No current effective medications due to past ineffective treatments and allergies. - Adverse Effects: Allergy to prednisone and history of GI bleeding restricts medication options. - Activities of Daily Living: Mobility is impaired, and weight management is challenging due to anxiety-related eating. Disrupted sleep due to pain. - Aberrant Drug-Related Behaviors: No evidence of medication misuse; constraints predominantly due to allergies and past medical history. [facility] Medical History Pre-diabetes GERD (gastroesophageal reflux disease) Hiatal hernia HTN (hypertension) Vitamin deficiency Fatigue Diaphragmatic hernia Dyspareunia in female Heavy menstrual bleeding Vitamin B1 deficiency Prediabetes Obstructive sleep apnea treated with continuous positive airway pressure (CPAP) Asthma Acid reflux Umbilical hernia Surgical History S/P laparoscopic sleeve gastrectomy History of delivery History of endoscopy History of umbilical hernia repair (10/06/17) History of cholecystectomy History of tubal ligation Family History Father No problems noted. Mother Diabetes Hypertension FH: mental illness Maternal Grandmother Hypertension Maternal Uncle Cancer Leukemia Family/Other FH: mental illness Son No problems noted. Son Asthma Glaucoma Son No problems noted. 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 Alert and oriented. Mood and affect appropriate. Follows and participates in conversation appropriately. Respiratory effort is unlabored. No cough. Able to transition from sit to stand unassisted. Ambulates with bilaterally normal heel strike and toe off. Back/Spine/Pelvis Cervical Spine: cervical ROM normal, cervical muscular tenderness and No Cervical spine tenderness Thoracic/Lumbar Spine: thoracic and lumbar spine normal to inspection, Lasegue's sign negative, straight leg raise negative bilaterally, pain with thoraco- lumbar ROM, thoraco-lumbar ROM limited, No thoracic spinal tenderness and No lumbar spinal tenderness Pelvis: no buttock tenderness Sacroiliac joints: on the right tender to palpation (mild) and on the left nontender Results Reviewed Results Reviewed: MR lumbar spine wo con 10/01/24 CLINICAL HISTORY: slipped disc only ls scoliosis degenerative changes MRI lumbar spine without contrast Comparison: None Findings: Multiple vertebral body lipid rests and/or hemangiomas. No acute bony signal abnormalities are identified. L5-S1 small central posterior annular tear with disc bulge. Facet hypertrophy and osteophytosis also noted. Left neural foraminal narrowing without canal stenosis. L4-5 slight anterolisthesis with facet hypertrophy and disc bulge. Minimal canal stenosis with mild bilateral neural foraminal narrowing. L3-4, L2-3 and L1-2 facet hypertrophy without significant canal stenosis. Alignment is unremarkable with exception of L4-5 levels. Impression: Small central L5-S1 posterior annular tear with central disc bulge Left L5-S1 neural foraminal narrowing L4-5 anterolisthesis and degenerative change with neural foraminal narrowing. XR LUMBAR SPINE 2-3 VIEWS 09/24/24 HISTORY: pain COMPARISON: Comparison is made with the prior examination dated 09/28/2015. FINDINGS: AP, lateral, and coned down views of the lumbar spine are submitted. Osseous mineralization is normal. There is moderate rotatory levoscoliosis. The vertebral bodies maintain normal height without evidence of fracture. There is grade I spondylolisthesis of L4 on L5. There is mild degenerative disc disease with disc space narrowing and osteophyte formation. There are surgical clips in the right upper quadrant. There are postsurgical changes involving the stomach. IMPRESSION: Moderate rotatory levoscoliosis. Grade I spondylolisthesis of L4 on L5. Mild degenerative disc disease. Assessment & Plan Assessment & Plan (1) Levoscoliosis of lumbar spine: Code(s): M41.86 - Other forms of scoliosis, lumbar region Category: Medical (2) Lumbosacral spondylosis: Code(s): M47.817 - Spondylosis without myelopathy or radiculopathy, lumbosacral region Category: Medical (3) Sacroiliac joint pain: Code(s): M53.3 - Sacrococcygeal disorders, not elsewhere classified Category: Medical (4) Lumbosacral spondylosis: Code(s): M47.817 - Spondylosis without myelopathy or radiculopathy, lumbosacral region Category: Medical Plan After recent right sacroiliac joint injection, the patient reports significant pain relief, confirming SI joint as one of significant source of her chronic discomfort. Future interventions may include radiofrequency ablation and peripheral nerve stimulation. She reports allergy to prednisone. Patient will notify our office when her pain returns to baseline. Lifestyle modifications continue to be advised to manage the impact of chronic low back pain with spondylosis and scoliosis and degenerative conditions, with follow-up as needed. Patient was informed and verbally consented to the use of an ambient scribe for clinic note documentation during this visit. Coding Level of Care Code Est Pt Level 3 (16312) Complex EM visit Add On G2211 Diagnoses Levoscoliosis of lumbar spine M41.86 Lumbosacral spondylosis M47.817 Sacroiliac joint pain M53.3
--- OUTSIDE RECORDS SUMMARY | 2024-11-21 13:49 | XMS_ITS | Clinical Summary ---
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 For additional information please refer to http://education.Zwamy.Definigen/faq/SGD805 (This link is being provided for informational/ educational purposes only.) The performance of this assay has not been clinically validated in patients less than 2 years old. Blood 01/29/2024 10:5 5 AM EDT 01/29/2024 10:56 AM EDT Narrative Resulting Agency Comment Performing Lab: ?Site ID: [id number] ?Name: [facility] ?Address: [address] [place] [phone] ?Director: Guilherme Quinteros M.D. Rachael JANE LAB BLOOD ORDERABLES F inal Result Performing Organization Address City/[facility] Co de Phone Number [facility] [address] [place] [address] * Hepatitis C Ab with reflex to HCV PCR (01/29/2024 10:55 AM EDT) Pathologist [facility] Hepatitis C Ab NON-REACT KIERAN NON-REACT KIERAN [facility] Comment: HCV antibody was non-reactive. There is no laboratory evidence of HCV infection. In most cases, no further action is required. However, if recent HCV exposure is suspected, a test for HCV RNA (test code 46348) is suggested. For additional information please refer to http://education.Elemental Foundry/faq/ECM02h5 (This link is being provided for informational/ educational purposes only.) 01/29/2024 10:5 5 AM EDT 01/29/2024 10:56 AM EDT Narrative Resulting Agency Comment Performing Lab: ?Site ID: [id number] ?Name: [facility] ?Address: [address] [place] [phone] ?Director: Guilherme Quinteros M.D. Rachael JANE LAB BLOOD ORDERABLES F inal Result Performing Organization Address [facility] Co de Phone Number [facility] [address] [place] [address] * (ABNORMAL) Lipid panel with reflex to [...] LDL-C. Misael SS et al. BELLA. 2013;310(19): 4170-4583 (http://education.CrowdTorch.Definigen/faq/XRR003) Chol/HDL Ratio 3.6 <5.0 (calc) [facility] Non-HDL Cholesterol 146(H) <130 mg/dL (calc) [facility] Comment: For patients with diabetes plus 1 major ASCVD risk factor, treating to a non-HDL-C goal of <100 mg/dL (LDL-C of <70 mg/dL) is considered a therapeutic option. 01/29/2024 10:5 1 AM EDT 01/29/2024 10:52 AM EDT Narrative Resulting Agency Comment Performing Lab: ?Site ID: [id number] ?Name: [facility] ?Address: [address] [place] [phone] ?Director: Guilherme Quitneros M.D. Rachael JANE LAB BLOOD ORDERABLES F inal Result [facility] [address] [place] [address] * (ABNORMAL) Comprehensive metabolic panel (01/29/2024 10:51 [...] Comment Performing Lab: ?Site ID: [id number] ?Name: [facility] ?Address: [address] [place] [phone] ?Director: Guilherme Quinteros M.D. Rachael JANE LAB BLOOD ORDERABLES F inal Result [facility] [address] [place] [address] from Last 3 Months or Most Recently Relevant to Health Maintenance Insurance [place]
--- OUTSIDE RECORDS SUMMARY | 2024-11-21 13:49 | XMS_ITS | Clinical Summary ---
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
--- OUTSIDE RECORDS SUMMARY | 2024-11-21 13:49 | XMS_ITS | Clinical Summary ---
Author Organization [employer] Address [address] [place] [address] 7t [place] [address] Care Team Providers Care Offal Baler Name Role Phone Name, Morales RAMSEY Primary Care Provider [phone] Allergies Active Allergy Reactions Criticality Noted Date [...] Patient to reach out to [facility] team as needed, Patient to engage in OP therapy , and Patient to reach out to HC as needed S/P laparoscopic sleeve gastrectomy 08/12/2022 Overview (08/12/2022): [place] Ortiz[place] [facility] [place] Chronic low back pain 06/18/2022 Dysmenorrhea 06/18/2022 Esophageal dysphagia 06/18/2022 Hypertensive disorder 06/18/2022 Lower esophageal ring 06/18/2022 Morbid obesity 06/18/2022 Pain in pelvis 06/18/2022 Umbilical hernia 06/18/2022 Prediabetes 08/23/2021 Encounters Date Type Department Care Team Description 11/15/2024 Patient Outreach [facility] [address] [place] [address] Morales Ly MD Care Coordination (C3/CM f/u) 11/15/2024 Patient Outreach [facility] [address] [place] [address] Morales Ly MD Care Coordination (C3CM f/u call) 11/13/[address] [address] Yumiko Fabian [place] January recalls 11/04/2024 10:45 AM EDT Office Visit [facility] [address] [place] [address] Morales Ly MD Iron deficiency anemia, unspecified iron deficiency anemia type (Primary Dx); Menorrhagia with irregular cycle; History of GI bleed; Migraine without aura and without status migrainosus, not intractable; Seasonal allergies; Seborrheic keratosis; Chronic right-sided low back pain, unspecified whether sciatica present 11/04/2024 Travel 11/01/2024 Patient Outreach [facility] [address] [place] [address] Morales Ly MD 11/01/2024 Telephone [facility] [address] [place] [address] Morales Ly MD CHART PREP 11/01/2024 Patient Outreach [facility] [address] [place] [address] Morales Ly MD 10/31/2024 Patient Outreach [address] [address] Morales Ly MD 10/31/2024 Patient Outreach [address] [address] Moarles Ly MD Care Coordination (C3/CM F/U) 10/24/2024 Patient Outreach [address] [address] Morales Ly MD 10/14/2024 Telephone [facility] [address] [place] [address] Morales Ly MD Care Coordination ([address] referral) 10/14/2024 Plan of Care Documentation [address] [address] 10/14/2024 Patient Outreach [facility] [address] [place] [address] Morales Ly MD Care Coordination ([facility] initial assessment/ enrollment) 10/11/2024 Patient Outreach [address] [address] Morales Ly MD Care Coordination (Outreach) 10/02/[address] [address] Morales Ly MD Results 09/27/2024 11:15 AM EDT Office Visit [address] [address] Xi Johnson NP Lumbar radiculopathy (Primary Dx) 09/27/2024 Travel 09/25/2024 Patient Outreach [address] [address] Morales Ly MD 09/25/2024 Patient Outreach [address] [address] Morales Ly MD Care Coordination (C3/CM Outreach) 09/25/[address] [address] Morales Ly MD Nurse Triage; ER Follow-up 09/25/2024 Patient Outreach [facility] [address] [place] [address] Morales Ly MD 09/25/2024 Patient Outreach [address] [address] Morales Ly MD Care Coordiantion 09/25/2024 Patient Outreach [facility] [address] [place] [address] Morales Ly MD Care Coordination (C3 Chart review) 09/25/2024 Patient Outreach [facility] [address] [place] [address] Morales Ly MD 09/24/2024 10:00 AM EDT Office Visit [facility] [address] [place] [address] Denny Bocanegra MD Acute bilateral low back pain with right-sided sciatica (Primary Dx); Hypertension, unspecified type 09/20/2024 Population Health Risk Score [facility] (C3) Department [address] [place] [phone] Provider, Population Health Generic 09/10/2024 9:00 AM EST [facility] [address] [address] Denny Bocanegra MD Left elbow pain (Primary Dx); Elbow injury, left, initial encounter; Finger pain, right 09/09/2024 Orders Only [facility] External Provider, [facility] from Last 3 Months Immunizations Immunization Administration Dates Next Due Influenza Injectable Quadriv [...] Description 02/19/2025 10:45 AM EDT Office Visit [facility] [address] [place] [address] Name, MD Morales [address] [place] [address] Health Maintenance Due Date Last Done Comments [...] Tdap) 02/19/2029 02/19/2019 Lipid Panel 04/26/2029 04/26/2024, 12/2022, 06/21/2021 Colonoscopy 03/18/2034 03/18/2024 Colorectal Cancer [...] patient's age to complete this topic Meningococcal B Vaccine Aged Out No l onger eligible based on patient's age to complete [...] 09/10/2024 9:28 AM EST Left elbow pain HEMOGLOBIN A1C Routine 04/26/2024 8:28 AM EDT [...] EDT) Iron 78 30 - 160 mcg/dL [facility] Total Iron Binding Capacity 305 228 - 428 mcg/dL [facility] Percent Iron Saturation 26 15 - 50 % [facility] Unsaturated Iron Binding 227 ug/dL [facility] Blood Venous blood specimen / Unknown 11/04/2024 11:11 AM EDT 11/04/2024 1:07 PM EDT us Morales Ly MD LAB BLOOD ORDERABLES Final Resul t Performing Organization Address City/[facility]/ZIP Co de Phone Number [facility] [address] [place] [address] [phone] * Ferritin (11/04/2024 11:11 AM EDT) Pathologist [facility] Ferritin 17 10 - 250 ng/mL [facility] Blood Venous blood specimen / Unknown 11/04/2024 11:11 AM EDT 11/04/2024 1:07 PM EDT us Morales Ly MD LAB BLOOD ORDERABLES Final Resul t Performing Organization Address [facility] de Phone Number [facility] [address] [place] [address] [phone] * CBC auto differential (11/04/2024 11:10 AM EDT) [facility] White Blood Count 5.3 4.8 - 10.8 X10*3/uL [facility] Red Blood Count 4.53 4.20 - 5.50 X10*6/uL [facility] Hemoglobin 12.8 12.0 - 16.0 g/dl [facility] Hematocrit 39.7 37.0 - 47.0 % [facility] Mean Corpuscular Volume 87.6 80.0 - 98.0 fL [facility] Mean Corpuscular Hemoglobin 28.3 27.0 - 33.0 pg [facility] Mean Corpuscular HGB Conc 32.2 31.0 - 35.0 g/dl [facility] Red Cell Distribution Width 13.4 11.0 - 16.0 % [facility] Platelet Count 340 160 - 400 X10*3/uL [facility] Mean Platelet Volume 9.6 9.4 - 12.3 fL [facility] Neutrophils Percent Auto 58.2 45 - 73 % [facility] Imm Gran Pct Auto 0.4 0.0 - 0.4 % [facility] Lymphocytes Percent Auto 31.6 20 - 40 % [facility] Monocytes Percent Auto 6.8 2 - 11 % [facility] Eosinophils Percent Auto 1.9 0 - 4 % [facility] Basophils Percent Auto 1.1 0 - 2 % [facility] NRBC Pct Auto 0.0 0.0 - 0.2 /100WBC [facility] Neutrophils Absolute Auto 3.1 2.0 - 8.3 x10*3/uL [facility] Imm Gran Abs Auto 0.02 0.00 - 0.03 X10*3/uL [facility] Lymphocytes Absolute Auto 1.7 1.2 - 4.9 X10*3/uL [facility] Monocytes Absolute Auto 0.4 0.1 - 1.2 X10*3/uL [facility] Eosinophils Absolute Auto 0.1 0.0 - 0.4 X10*3/uL [facility] Basophils Absolute Auto 0.1 0.0 - 0.2 X10*3/uL [facility] NRBC Abs Auto 0.000 0.0 - 0.012 X10*3/uL [facility] Blood Venous blood specimen / Unknown 11/04/2024 11:10 AM EDT 11/04/2024 1:07 PM EDT us Morales Name LAB BLOOD ORDERABLES Final Resul t Performing Organization Address City/State/[facility] Co de Phone Number [facility] [address] [place] [phone] * MR Lumbar Spine w/o Contrast (10/01/2024 6:57 PM EDT) Anatomical Region Laterality Modality Spine, L-spine Magnetic Resonan ce 10/01/2024 6:57 PM EDT Narrative 10/01/2024 6:59 PM EDT ? [place] [facility] ?[address] ?[place] [address] ? Magnetic Resonance Report ? Signed ? Patient: Lara Ortega,Traci ?MR#: [id number] ?? [id number] ? : 1975 ?Acct:[id number] ? Age/Sex: 49 / F ?ADM Date: 10/01/24 ? Loc: HO.MRI ? Attending Dr: Xi Johnson ? Ordering Physician: Xi Johnson ?? Date of Service: 10/01/24 ?? Procedure(s): MR lumbar spine wo con ?? Accession Number(s): [id number] ? cc: Xi Johnson; Name,Morales RAMSEY ? [...] ? DD/ 56 ? TD/TT: 10/01/241856 ? Dsp Engineer: ? Procedure Note Nikki Ortiz - 10/01/[address] [address] Magnetic Resonance Report Signed Patient: Traci DahlMR#: [id number] : 1975Acct:[id number] Age/Sex: 49 / FADM Date: 10/01/24 Loc: HO.MRI Attending Dr: Xi Johnson Ordering Physician: Xi Johnson Date of Service: 10/01/24 Procedure(s): MR lumbar spine wo con Accession Number(s): [id number] cc: Xi Johnson; Name,Morales RAMSEY CLINICAL HISTORY: [...] in OV> 10/01/241858 DD/ 56 TD/TT: 10/01/241856 Dsp Engineer: us Xi Johnson HAND BRUSH FILLER IMG MRI PROCEDURES Edited Resul t - Final * XR Lumbar Spine 2-3 Views (09/24/2024 11:20 AM EDT) Anatomical Region Laterality Modality Spine, L-spine Radiographic Kimi ging 09/24/2024 11:2 0 AM EDT Narrative 09/24/2024 11:52 AM EDT ? [facility] ?[address] ?[place] [address] ?XRay Report ? Signed ? Patient: Lara Ortega,Traci ?MR#: [id number] ?? [id number] ? : 1975 ?Acct:[id number] ? Age/Sex: 49 / F ?ADM Date: 03/18/25 ? Loc: HO.ED ? Attending Dr: ? Ordering Physician: Frida Gong ?? Date of Service: 09/24/24 ?? Procedure(s): XR lumbar spine 2-3V ?? Accession Number(s): [id number] ? cc: Frida Gong; Name,Morales RAMSEY ? [...] DD/ 1120 ? TD/TT: 09/24/24 1129 ? Dsp Engineer: ? Procedure Note Nikki Ortiz - 09/24/[address] [address] XRay Report Signed Patient: Traci DahlMR#: [id number] : 1975Acct:[id number] Age/Sex: 49 / FADM Date: 09/24/24 Loc: HO.ED Attending Dr: Ordering Physician: Frida Gong Date of Service: 09/24/24 Procedure(s): XR lumbar spine 2-3V Accession Number(s): [id number] cc: Frida Gong; Name,Morales RAMSEY EXAMINATION: XR [...] 09/24/24 1149 DD/ 1120 TD/TT: 09/24/24 1129 Dsp Engineer: [facility] External Provider IMG XR PROCEDURES Final Result * MR Shoulder w/o Contrast Right (09/11/2024 2:40 PM EST) Anatomical Region Laterality Modality Upper Extremities, Shoulder Right Magn etic Resonance 09/11/2024 2:40 PM EST Narrative 09/11/2024 2:42 PM EST ? [facility] ?[address] ?[place] [address] ? Magnetic Resonance Report ? Signed ? Patient: Traci Dahl ?MR#: [id number] ?? [id number] ? : 1975 ?Acct:[id number] ? Age/Sex: 49 / F ?ADM Date: 03/03/25 ? Loc: HO.MRI ? Attending Dr: Best Sierra MD ? Ordering Physician: Best Sierra MD ?? Date of Service: 09/09/24 ?? Procedure(s): MR shoulder RT wo con ?? Accession Number(s): [id number] ? cc: Name,Morales RAMSEY; Best Sierra MD [...] ? DD/ ? TD/TT: 09/11/24 1440 ? Dsp Engineer: ? Procedure Note Donotuseinterpreter, Image - 09/11/2024 [place] [address] Magnetic Resonance Report Signed Patient: Traci DahlMR#: [id number] : 1975Acct:[id number] Age/Sex: 49 / FADM Date: 09/09/24 Loc: HO.MRI Attending Dr: Best Sierra MD Ordering Physician: Best Sierra MD Date of Service: 09/09/24 Procedure(s): MR shoulder RT wo con Accession Number(s): [id number] cc: Name,Morales RAMSEY; Best Sierra MD CLINICAL [...] 09/11/24 1442 DD/ 1440 TD/TT: 09/11/24 1440 Dsp Engineer: [facility] External Provider IMG MRI PROCEDURES Edited Result - Final * XR Fingers 2+ Views Right (09/10/2024 9:28 AM EST) Anatomical Region Laterality Modality Upper Extremities, Fingers Right Radio graphic Imaging 09/10/2024 9:28 AM EST Narrative 09/10/2024 10:05 AM EST ?[facility] ?[address] ?[place] [address] ?XRay Report ? Signed ? Patient: Traci Dahl ?MR#: [id number] ?? [id number] ? : 1975 ?Acct:[id number] ? Age/Sex: 49 / F ?ADM Date: 03/04/25 ? Loc: HO.HHCX ? Attending Dr: Denny Bocanegra MD ? Ordering Physician: DENNY BOCANEGRA MD ?? Date of Service: 09/10/24 ?? Procedure(s): XR finger RT min 2V ?? Accession Number(s): [id number] ? cc: DENNY BOCANEGRA MD ? EXAMINATION: [...] Bell MD ??09/10/2024 10:02 AM ?? EST ? Dictated By: ?Ronald Chisholm MD ? Signed By: ?<Electronically signed by Ronald Loo MD in OV> ? 09/10/24 1002 ? DD/ 0928 ? TD/TT: 09/10/24 0950 ? Dsp Engineer: ? Procedure Note Diana, Image - 09/10/2024 [place] [address] XRay Report Signed Patient: Traci DahlMR#: [id number] : 1975Acct:[id number] Age/Sex: 49 / FADM Date: 09/10/24 Loc: HO.HHCX Attending Dr: Denny Bocanegra MD Ordering Physician: DENNY BOCANEGRA MD Date of Service: 09/10/24 Procedure(s): XR finger RT min 2V Accession Number(s): [id number] cc: DENNY BOCANEGRA MD EXAMINATION: XR FINGER, [...] 09/10/24 1002 DD/ 0928 TD/TT: 09/10/24 0950 Dsp Engineer: us Denny Bocanegra MD IMG XR PROCEDURES Final Result * XR Elbow 3+ Views Left (09/10/2024 9:28 AM EST) Anatomical Region Laterality Modality Upper Extremities, Elbow Left Radiogr aphic Imaging 09/10/2024 9:28 AM EST Narrative 09/10/2024 10:05 AM EST ?[facility] ?[address] ?[place] [address] ?XRay Report ? Signed ? Patient: Traci Dahl ?MR#: [id number] ?? [id number] ? : 1975 ?Acct:[id number] ? Age/Sex: 49 / F ?ADM Date: 09/10/24 ? Loc: HO.HHCX ? Attending Dr: Denny Bocanegra MD ? Ordering Physician: DENNY BOCANEGRA MD ?? Date of Service: 09/10/24 ?? Procedure(s): XR elbow LT min 3V ?? Accession Number(s): [id number] ? cc: DENNY BOCANEGRA MD ? EXAMINATION: [...] ? DD/ ? TD/TT: 09/10/24 0950 ? Dsp Engineer: ? Procedure Note Donjeremy, Nikki - 09/10/2024 [facility] [address] [place] [address] XRay Report Signed Patient: Traci DahlMR#: [id number] : 1975Acct:[id number] Age/Sex: 49 / FADM Date: 09/10/24 Loc: HO.HHCX Attending Dr: Denny Bocanegra MD Ordering Physician: DENNY BOCANEGRA MD Date of Service: 09/10/24 Procedure(s): XR elbow LT min 3V Accession Number(s): [id number] cc: DENNY BOCANEGRA MD EXAMINATION: XR ELBOW, [...] Ronald Loo MDin OV> 09/10/24 1003 DD/ 7 TD/TT: 09/10/24 0950 Dsp Engineer: Denny Bocanegra MD IMG XR PROCEDURES Final Result * Hemoglobin A1c (04/26/2024 8:28 AM EDT) Hemoglobin A1c 4.9 <6.0 % [facility] Comment:Hemoglobin A1C Refer ence Range Adults: 4.8 - 6.0 % Non diabetic: < 6.0 % Goal: < 7.0 %Additional Action Suggested: > 8.0 %Note: Hemoglobin A1c results are invalid for patients with abnormal amounts of HbF. Blood transfusions may impact the HbA1c concentration in the patient sample. Estimated Average Glucose 94 mg/dL [facility] Comment:eAG = Estimated ave rage glucose which is %A1C expressed asaverage glucose, using the formula of the O0D-RpybewuAdhepgg Glucose study (ADAG), Diabetes Care, Vol.31,#8,Feb. 2007 04/26/2024 8:28 AM EDT 04/26/2024 8:28 AM EDT us Generic External Data Provider LAB BLOOD ORDERAB LES Final Result [facility] [address] [place] [phone] * (ABNORMAL) Lipid Panel, Standard (04/26/2024 8:28 AM EDT) Triglycerides 80 <150 mg/dL [facility] Comment:Desirable Triglyceri de: less than 150 mg/dLBorderline High Triglyceride 150-199 mg/dLHigh Triglyceride: 200-499 mg/dLVery High Triglyceride: greater than or equal to 5OO mg/dL Cholesterol 186 <200 mg/dL [facility] Comment:Desirable Cholestero l: less than 200 mg/dLBorderline High Cholesterol: 200-239 mg/dLHigh Cholesterol: greater than 239 mg/dL LDL Cholesterol Calculated 120(H) <100 mg/dL [facility] Comment:Desirable LDL: less than 100 [...] Provider LAB BLOOD ORDERAB LES Final Result [facility] [address] [facility] [place] [address] [phone] * Hm Colonoscopy (03/18/2024) Colonoscopy Normal Normal 03/18/2024 us Morales Name MD HEALTH MAINTENANCE Final Result * BI Mammogram Screening Tomosynthesis Bilateral (10/11/2022 12:03 PM EDT) Anatomical Region Laterality Modality Breast Bilateral Mammography 10/11/2022 12:0 3 PM EDT Narrative 10/12/2022 5:03 PM EDT ? [facility] [place] ? [address] ?[place] [address] ? Mammography Report ? Signed ? Patient: Traci Dahl ?MR#: [id number] ?? [id number] ? : 1975 ?Acct:[id number] ? Age/Sex: 47 / F ?ADM Date: 10/11/ ? Loc: HO.MAMMO ? Attending Dr: Celso Galo CNM ? Ordering Physician: CELSO GALO CNM ?Results: 1 ?? Negative ? Date of Service: 10/11/ ?Follow Up: 1 Year From Orig ?? inal Mammogram ? Procedure(s): MM tomosynthesis screening BI ?? Accession Number(s): [id number] ? cc: CELSO GALO CNM ? EXAMINATION: [...] ?10/12/221699 ? DD/ 02 ? TD/TT: ? Dsp Engineer: ARRIAGA ? Procedure Note Diana, Nikki - 10/12/2022 [facility] [address] [place] [address] Mammography Report Signed Patient: Traci DahlMR#: [id number] : 1975Acct:[id number] Age/Sex: 47 / FADM Date: 10/11/22 Loc: HO.MAMMO Attending Dr: Celso Galo CNM Ordering Physician: CELSO GALOesults: 1 Negative Date of Service: 10/11/22Follow Up: 1 Year From Orig inal Mammogram Procedure(s): MM tomosynthesis screening BI Accession Number(s): [id number] cc: CELSO GALO CNM EXAMINATION: MM SCREENING [...] in OV> 10/12/22 1700 DD/ 1203 TD/TT: Dsp Engineer: ARRIAGA [facility] External Provider IMG BI PROCEDURES Final Result * THINPREP TIS PAP AND HPV mRNA E6/E7 WITH REFLEX TO HPV 16,18/45 (07/12/2021 10:33 AM EST) Clinical Information: None given [facility] COMMENT SEE COMMENT [facility] [...] has been evaluated with computer assisted technology. [facility] Medical Cost Consultant: SEE COMMENT [facility] Comment: YP, CT(ASCP) CT screening location: [address] ??[address] HPV nRNA E6/E7 Not Detected Not Detected [facility] Comment: Methodology: Solution Professional-Mediated Amplification This assay detects E6/E7 viral messenger RNA (mRNA) from 14 high-risk HPV types (16,18,31,33,35,39,45,51,52,56,58,59,66,68). ? The analytical performance characteristics of this assay have been determined by [facility]. The modifications have not been cleared or approved by the FDA. This assay has been validated pursuant to the CLIA regulations and is used for clinical purposes. ?? For additional information, please refer to http://education.HipFlat/faq/EUE507z2 (This link if provided for information/ educational purposes only.) Interpretation/Re sult: Negative for intraepithelial lesion or malignancy. [facility] LMP: 121,321 [facility] Prev. BX: NONE GIVEN [facility] Prev. PAP: NONE GIVEN [facility] SOURCE: None given [facility] Statement Of Adequacy: SEE COMMENT [facility] Comment: Satisfactory for evaluation. Endocervical/transformation zone component absent. 07/12/2021 10:3 3 AM EST Celso Galo CNM LAB PATHOLOGY ORDERABLES Final Result [facility] [address] [place] [address] from Last 3 Months or Most Recently Relevant to Health Maintenance Insurance [facility] C3 Care Teams Offal Baler Relationship Specialty Start Date End Date Name, MD Morales [address] [place], [place] PCP - General Family Medicine 07/01/21
--- OUTSIDE RECORDS SUMMARY | 2024-11-21 13:49 | XMS_ITS ---
Author Organization [employer] Address [address] [place] [address] [address] [place] [address] Care Team Providers Care Exerciser Horse Name Role Phone Name, Morales RAMSEY Primary Care Provider [phone] CHW Complex Status:Enrolled (Active) Start date:09/25/2024 Enrollment date:10/14/2024 Enrollment reason:ADT Feed Overview [facility] ED 09/24 Case Team Name Relationship Phone Mirlande Lopez(Responsible Staff) [phone] Continued Care and Services Coordination
--- OUTSIDE RECORDS SUMMARY | 2024-11-21 13:49 | XMS_ITS | Encounter Summary ---
Author Organization [employer] Address [address]t [place] [address] Care Team Providers Care School Treasurer Name Role Phone Name, Morales RAMSEY Primary Care Provider [phone] Reason for Visit * Reason Onset Date Comments Hospital Follow-up 03/29/2024 Encounter Details Date Type Department Care Team ([facility] st Contact Info) Description 03/29/2024 Telephone [facility] [address] [place] [address] Name, MD Morales [address] [place] [address] Hospital Follow-up Social History Tobacco Use Types [...] EDT Please obtain in patient notes from [facility] admitted 03/17/24 and transfer to [facility] inpatient with diwscharge date of 03/28/24. Hospital discharge follow up appt booked for 04/05/24 Monica CHISHOLM 2pm * Telephone Encounter - Senia Levine LPN - 03/29/2024 10:40 AM EDT Triage call returned to patient with Storey [id number]. Patient discharged from [facility] yesterday. Initial admission to [facility] on 03/17/24 transferred to [facility] after 6 days and discharged to home yesterday. is feeling well. Concerned with Insurance coverage.Strobe active as run today. No new symptoms [...] from pt requesting a HDF appt. Hospital: [facility] Date of admission: 03/17/24 Discharge date: 03/28/24 Diagnosed: Abdominal Pain (Martiniquais Speaker) documented in this encounter Plan of Treatment Upcoming Encounters Date Type Department Care Team (Late st Contact Info) Description 02/19/2025 10:45 AM EDT Office Visit [facility] [address] [place] [phone] Name, MD Morales [address] [place] [phone] documented as of this encounter Visit Diagnoses Not on filedocumented in this encounter Additional Health Concerns Assessment Noted Time PHQ-9 Depression Total Score: 0 12/16/19 23 11:12 AM EDT documented as of this encounter Care Teams School Treasurer Relationship Specialty Start Date End Date Name, MD Morales [address] [place] [phone] PCP - General Family Medicine 07/01/21 documented as of this encounter
--- OUTSIDE RECORDS SUMMARY | 2024-11-21 13:50 | XMS_ITS ---
Author Organization [employer] Address [address] [place] [address] 7[address] [place] [address] Care Team Providers Care Dopster Name Role Phone Name, Morales RAMSEY Primary Care Provider [phone] CM Complex Status:Enrolled (Active) Start date:09/25/2024 Enrollment date:10/14/2024 Enrollment reason:ADT Feed Overview ED- [facility] [place] [facility] [place]. Case Team Name Relationship Phone Yesica Palencia RN(Responsible Staff) Registered Nurse [phone] Continued Care and Services Coordination
--- OUTSIDE RECORDS SUMMARY | 2024-11-21 13:50 | XMS_ITS ---
Author Organization [facility] Address [address] [place] [address] Care Team Providers Care Missile And Missile Checkout Technician Name Role Phone Linda Lopez Primary Care Provider UnavailJamarcus Bermeo [phone] REASON FOR VISIT pathology Encounters Encounter Location Date Provider Diagnosis [facility] [address] [place] [address] 04/03/2024 Jamarcus Banda Plan Of Treatment Next Appt Details Provider Name:Jamarcus Banda , 12/05/2024 11:00:00 AM, [address], [address], [place], [address], Progress Notes * CHUCHO HOLMDOB:[birth year] (48 yo F)Acc No.[id number]:04/03/2024 Patient:?CHUCHO HOLM :1975???Age:48 Y???Sex:Female Address:[address] [place] [address] [address], [place], [address] * true * Date:? Generated for Printi francisco j/Cadence/eTransmitting on:?11/21/2024 01:49 PM EDT
--- OUTSIDE RECORDS SUMMARY | 2024-11-21 13:50 | XMS_ITS | Patient Health Record ---
Author Organization [facility] Address [address] [place] [address] Care Team Providers Care Supervisor Edging Name Role Phone Linda Lopez Primary Care Provider Jamarcus Anderson [phone] Allergies Allergen (clinical drug ingredient) Drug/Non Drug Allergy documented on EMR Reaction Allergy Type Onset Date Status PredniSONE Unknown Drug Allergy Active naproxen Naproxen Unknown Drug Allergy Active Motrin Unknown Drug Allergy Active Results Component Value Reference Range Notes Pathology Reviewed date:04/03/2024 08:25:28 AM Interpretation: Performing Lab:[facility], [address] [place] [address] Notes/Report: Name: Gretchen oHlm Age/Sex: 48/F : 1975 Unit#: [id number] Attend Dr: Paolo Olivas MD Re03/17/24 Status : DIS IN Location: [facility] 450-1 Disch: 03/23/24 SPEC : [id number] RECD : 03/25/24 STATUS: CHELSEA MANCINI NUM: [id number] GRANT: 03/22/24-[address] [facility] [address]: Kameron Olivo MD ENTERED: 03/25/24 SP TYPE: Surgical OTHR DR: Paolo Olivas MD Name,Morales RAMSEY ORDERED: HE Stain/3, Gross Micro L4, IHC, H. pylori Addendum Addendum 1 Entered: 03/28/24 Immunostain for H. p ylori is negative. Control stains appropriately. Addendum Signed ____ __(signature on file) Priti Hansen 03/28/241123 Diagnosis Gastric antrum, biop sy: Gastric [...] examinat ion, 3 pieces in cassette [facility]. [facility] Special studies orde red and performed: Immunostain for H. pylori on A1. CONTINUED ON NEXT PAGE Name: Gretchen Holm Age/Sex: 48/F : 1975 Unit#: [id number] Attend Dr: Paolo Olivas MD Re03/17/24 Status : DIS IN Location: [facility] 450-1 Disch: 03/23/24 SPEC : [id number] RECD : 03/25/24 STATUS: CHELSEA MANCINI NUM: [id number] GRANT: 03/22/24-[address] [facility] [address]: Kameron Olivo MD ENTERED: 03/25/24- 15 SP TYPE: Surgical OTHR DR: Paolo Olivas MD Name,Morales RAMSEY ORDERED: HE Stain/3, Gross Micro L4, IHC, H. pylori Copies To: Kameron Olivo MD [facility] [address] [place] [id number] Paolo Olivas MD [address] [place] [address] Name,Morales RAMSEY [address] [place] [address] [phone] Signed (si gnature on file) Priti Ellis 03/26/24 1035 END OF REPORT Reason For Referral Referring Provider First Name Morales Referring Provider Last Name Name Referring Provider Speciality Internal M edicine Referred Organization [facility] Referred Provider Jamarcus Banda Referred Address [address] [place] [address],[place], [place],[address], Referred Provider Specialty Gastroentero logy Referral Priority Routine Medications Medication SIG (Take, Route, Frequency, Duration) Notes Start Date End Date Status Albuterol Active Omeprazole 20 MG 1 capsule Orally Onc e a day Active Gthfuebqyr-GJJN-Rqiqcvbb 50-325-40 MG TAKE ONE TABLET BY MOUTH [...] Problem Status W/U Status Risk Notes Problem 06820589 Heartburn (R12) Active confirmed Problem 390579815 Gastroesophageal reflux disease, esophagitis presence not specified (K21.9) Active confirmed Problem Esophageal stricture (32903961) Esophageal stricture (K22.2) Active confirmed Problem Diverticulosis l arge intestine w/o perforation or abscess w/o bleeding (K57.30) Active confirmed Encounters Encounter Location Date Provider Diagnosis [facility] [address] [place] [address] 04/03/2024 Jamarcus Banda [facility] [address] [place] [address] 08/05/2024 Jamarcus Banda Plan Of Treatment Pending Test Test Name Order Date GI BIOPSY 01/03/2018 Future Test Test Name Order Date UPPER GI ENDOSCOPY 08/22/2017 Next Appt Details Provider Name:Jamarcus Banda , 12/05/2024 11:00:00 AM, [address] [facility], [address], [place], [address], Insurance Providers Payer Name Payer Address Payer Phone Subscriber Number Group Number Insured Name Patient Relationship to Insured Coverage Start Date Coverage End Date MEDICAID OF [email or web address] [id number] [address] [place] [phone] [id number] CHUCHO HOLM Self - patient is the insured Medical (General) History Medical History History ICD Code Denies PR,CVA,renal disease Hypertension NIDDM Asthma GERD--EGD in 2009 in [facility]--she describes gastritis with probable H.pylori and a hiatal hernia--describes being treated with antibiotics Sleep apnea--uses CPAP Mild diverticulitis on CT scan in 7 Surgical History Surgery Date(Month/Year) Tubal ligation 1997 Cholecystectomy 1997
--- OUTSIDE RECORDS SUMMARY | 2024-11-21 13:50 | XMS_ITS ---
Author Organization [facility] Address [address] [place] [address] Care Team Providers Care Steward/Stewardess Banquet Name Role Phone Linda Lopez Primary Care Provider UnavailJamarcus Bermeo [phone] Encounters Encounter Location Date Provider Diagnosis [facility] [address] [place] [address] 08/05/2024 Jamarcus Banda Plan Of Treatment Next Appt Details Provider Name:Jamarcus Banda , 12/05/2024 11:00:00 AM, [address], [address], [place], [address], Progress Notes * CHUCHO HOLMDOB:[birth year] (49 yo F)Acc No.[id number]:08/05/2024 Patient:?CHUCHO HOLM :1975???Age:49 Y???Sex:Female Address:[address] , [place], [address] * true * Date:? Generated for Printi francisco j/Cadence/eTransmitting on:?11/21/2024 01:49 PM EDT
--- OUTSIDE RECORDS SUMMARY | 2024-11-21 13:50 | XMS_ITS ---
Author Organization [facility] Address [address] [place] [address] Care Team Providers Care Vegetable Loader Name Role Phone Linda Lopez Primary Care Provider Unavailab Jamarcus Lopez [phone] REASON FOR VISIT Patient presents today for HEMMORHAGE Encounters Encounter Location Date Provider Diagnosis [facility] [address] [place] [address] 08/07/2024 Jamarcus Banda Plan Of Treatment Next Appt Details Provider Name:Jamarcus Banda , 12/05/2024 11:00:00 AM, [address], [address], [place], [address], Progress Notes * CHUCHO HOLMDOB:[birth year] (49 yo F)Acc No.[id number]:08/07/2024 Progress Notes Patient:?CHUCHO HOLM Provider:?Jamarcus Banda MD :1975???Age:49 Y???Sex:Female D ate:08/07/2024 Address:[address] [place] [id number] Pcp:Linda Howell Subjective: * Chief Complaints: * [...] MD Date:? 025 Generated for Kalpana marx/Cadence/Dez on:?11/21/2024 01:49 PM EDT
== END 2024-11-21 13:28 | disposition home or self-care (01) ==
LOC: HO.PMC 13:15
PROVIDERS: PCP Internal Medicine Geriatric Medicine; Visit Provider Nurse Practitioner Family
DX: M41.86 Other forms of scoliosis, lumbar region (principal); M47.817 Spondylosis without myelopathy or radiculopathy, lumbosacral region; M53.3 Sacrococcygeal disorders, not elsewhere classified
CPT/HCPCS: 99213

== ENCOUNTER → 2024-11-21 13:15 | Outpatient (BNVA) | payer MEDICAID, SELFPAY | PROVIDERS: PCP Internal Medicine Geriatric Medicine; Visit Provider Nurse Practitioner Family | DX: M41.86 Other forms of scoliosis, lumbar region (principal); M47.817 Spondylosis without myelopathy or radiculopathy, lumbosacral region; M53.3 Sacrococcygeal disorders, not elsewhere classified | CPT/HCPCS: 99212 ==

== ENCOUNTER → 2024-12-10 10:45 | Outpatient (REF) | payer MEDICAID, SELFPAY ==
--- NOTE | 2024-12-10 10:47 | CA_ITS ---
Acquisition Time: 2024-12-10 11:09:38 Total Exercise Time: 00:06:30 Test Indications: CP,Fatigue,Abnormal Treadmill Test Medications: PANTOPRAZOLE ALBUTEROL INHALER Protocol: FERMÍN Max HR: 166 BPM 97% of Pred: 170 BPM Max BP: 136/80 mmHG Max Work Load: 7.7 METS Exercise stress test with exercise 6 mins 30 secs of Fermín Protocol, achieving 94% MPHR, with reports of mild SOB, no chest pain, without any arrythmias, with normotensive response to exercise. Without EKG changes meeting criteria for ischemia. In recovery, breathing quickly returned to baseline. Echo images obtained by tech at rest and post peak exercise. Definity contrast utilized. Test reviewed with Dr. Sanchez. Referred By: Dominic Cohn Electronically Signed By: Dominic Cohn
--- OUTSIDE RECORDS SUMMARY | 2024-12-10 12:24 | XMS_ITS ---
Author Organization [facility] Address [address] [place] [address] Care Team Providers Care Rn Midwife Name Role Phone Name Morales RAMSEY Primary Care Provider Jamarcus Tubbs [phone] Allergies Allergen (clinical drug ingredient) Drug/Non Drug Allergy documented on EMR Reaction Allergy Type Onset Date Status PredniSONE Unknown Drug Allergy Active naproxen Naproxen Unknown Drug Allergy Active Motrin Unknown Drug Allergy Active ibuprofen Advil Unknown Drug Allergy Active REASON FOR VISIT Patient presents today for a hosp f/u, GI bleed Medications Medication SIG (Take, Route, Frequency, Duration) Notes Start Date End Date Status diphenhydrAMINE HCl Active Calcium Citrate + D Active Cyclobenzaprine HCl Active Omeprazole 20 MG 1 capsule Orally Onc e a day Active Albuterol Sulfate Ac tive Ferrous Sulfate Acti ve Pantoprazole Sodium 40 MG 1 tablet 1/2 t o 1 hour before morning meal Orally Once a day Active Colace Active Vitamin B1 100 MG 1 tablet Orally Once a day Active Lidocaine 5 % APPLY 1 PATCH TOPICA LLY TO SKIN, LEAVE ON FOR 12 HOURS AND OFF FOR 12 HOURS DIRECTED External for 30 Days Active Acetaminophen Extra Strength 500 MG TAKE TWO TABLETS BY MOUTH EVERY 8 HOURS NEEDED FOR PAIN Oral for 5 Days Active Loratadine 10 MG TAKE 1 TABLET BY TINA TH EVERY DAY Oral for 90 Days Active SUMAtriptan Succinate 25 MG TAKE 1 TABLE T BY MOUTH AT ONSET OF MIGRAINE. MAY REPEAT ONCE AFTER 2 HOURS IF NEEDED, DO NOT EXCEED 2 TABLETS / 24 HOURS Oral for 15 Days Active Amitriptyline HCl 10 MG TAKE 1 TABLET BY MOUTH EVERY DAY AT BEDTIME Oral for 30 Days Active Fluticasone Propionate 50 MCG/ACT INSTILL 2 SPRAYS IN EACH NOSTRIL ONCE DAILY Nasal for 90 Days Active Social History Tobacco Use: Social History [...] Problem Status W/U Status Risk Notes Problem Iron deficiency anemia (14546871) Iron deficiency anemia (D50.9) Active confirmed Problem Colon cancer screening (709555119) Colon cancer screening (Z12.11) Active confirmed Vital Signs Blood pressure systolic 111 mm Hg 12/06/19 25 Blood pressure diastolic 77 mm Hg 025 Height 64 in 12/05/2024 Weight 217 lbs 12/05/2024 BMI 37.24 kg/m2 12/05/2024 Encounters Encounter Location Date Provider Diagnosis [facility] [address] [place] [address] 12/05/2024 Jamarcus Banda Iron deficiency anemia D50.9 and Colon cancer screening Z12.11 Assessments Encounter Date Diagnosis (ICD Code) Assessment Notes Treatment Notes Treatment Clinical Notes Section Notes 12/05/2024 Iron deficiency anemia (ICD-10 - D50.9) Continue your Iron Overall, Chucho appears well. She is not having any new or worrisome GI complaints. We did review the GI procedures from last March. We reviewed that her anemia seems to be most likely in relation to her menses as opposed to any chronic GI process. She does have good relief of her reflux on her PPI and I did advise her to continue that. We did review that she would need another screening colonoscopy in 2033 given her negative exam last year and no family history of colorectal cancer. At this point I do not think she needs any other particular workup on my part. I did advise her to continue her iron long-term in regard to the anemia and heavy menses. I have advised Chucho to see me again as needed but to certainly call if she has any problems or questions I can be of assistance with. Chucho was comfortable with this plan. Thank you again for allowing me to participate in Chucho's care. I shall continue to keep you advised of her progress. 12/05/2024 Colon cancer screening (ICD-10 - Z12.11) Repeat colonoscopy in 03/2034 Overall, Chucho appears well. She is not having any new or worrisome GI complaints. We did review the GI procedures from last March. We reviewed that her anemia seems to be most likely in relation to her menses as opposed to any chronic GI process. She does have good relief of her reflux on her PPI and I did advise her to continue that. We did review that she would need another screening colonoscopy in 2033 given her negative exam last year and no family history of colorectal cancer. At this point I do not think she needs any other particular workup on my part. I did advise her to continue her iron long-term in regard to the anemia and heavy menses. I have advised Chucho to see me again as needed but to certainly call if she has any problems or questions I can be of assistance with. Chucho was comfortable with this plan. Thank you again for allowing me to participate in Chucho's care. I shall continue to keep you advised of her progress. Plan Of Treatment Treatment Notes Assessment Notes Iron deficiency anemia Continue your Iro n Colon cancer screening Repeat colonoscop y in 03/2034 Next Appt Details Follow Up: prn, Reason: Progress Notes * CHUCHO HOLTDOB:1975 (49 yo F)Acc No.[id number]:12/05/2024 Progress Notes Patient:?CHUCHO HOLT Provider:?Jamarcus Banda MD :1975???Age:49 Y???Sex:Female D ate:12/05/2024 Address:[address] [place], [place] [id number] Pcp:Morales Ly MD Subjective: * Chief Complaints: * ???1. Patient presents today for a hosp f/u, GI bleed. * HPI: ???incontinence:? I saw Chucho in follow-up today in regard to her iron deficiency anemia and reflux. We were able to communicate effectively between my Brazilian, her Nepali, and my office staff who is bilingual. As you know, Chucho was admitted last March for some GI bleeding and anemia. She underwent an upper endoscopy and colonoscopy with Dr. Olivo. The colonoscopy was unremarkable. The upper endoscopy revealed a hiatal hernia and a nonobstructing distal esophageal ring. Gastric biopsies were negative for H. pylori. Since the hospitalization she reports that things have been stable and without any further bleeding. She does take pantoprazole daily with good relief of reflux. She is not having any significant heartburn, dysphagia, anorexia, nausea, nor vomiting. She reports that her bowel movements have been regular and without any hematochezia nor melena. She denies any abdominal pain, signs of jaundice, normal unintentional weight loss. She denies any known family history of colorectal cancer. She has been using iron on a daily basis. Her most recent labs from just a month ago showed a hemoglobin of 12.8 and normal MCV. Her hemoglobin had been 9.8 in March 2024. Iron studies just last month were also normal with an iron of 78 and iron saturation of 26%. The ferritin was 17. Her iron studies had improved as compared to April 2024 as well. She does report somewhat heavy and irregular menses. * Medical History:?Denies [place],renal disease, Hypertension, NIDDM--resolved with weight loss, Asthma, GERD--EGD in 2009 in [place]--she describes gastritis with probable H.pylori and a hiatal hernia--describes being treated with antibiotics, Sleep apnea--uses CPAP, Mild diverticulitis on CT scan in 04/2017, Seasonal allergies, An upper endoscopy in 2017 revealed a moderate-sized hiatal hernia and mild gastritis, but without any esophagitis or Devine's esophagus. Gastric biopsies were negative for H. pylori., Hospitalization for GI bleeding and anemia in March 2024. She underwent a colonoscopy with Dr. Olivo that was negative for polyps or any other lesions. An upper endoscopy with Dr. Olivo revealed a nonobstructing esophageal ring, hiatal hernia, and minimal changes of gastritis with biopsies negative for H. pylori., Iron deficiency anemia in relation to irregular and heavy menses with a negative GI workup as above. Her anemia did improve with iron supplements as of October 2024. * Surgical History:?Tubal liga tion 1997, Cholecystectomy 1997, Laparoscopic sleeve gastrectomy , Umbilical hernia . * Family History:?Father: dece ased.?Mother: alive, diagnosed with HTN (hypertension), Diabetes.? No colorectal cancer. * Social History:?Tobacco Use:?Tobacco Use/Smoking?Patient is a?nonsmoker.?Drugs/Alcohol:?Alcohol Screen?Did you have a drink containing alcohol in the past year??No,?Points?0,?Interpretation?Negative.?Miscellaneous:?Marital status: . 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 ???Nonsmoker; no alcohol. * Medications:?Taking Vitamin B1 100 MG Tablet 1 tablet Orally Once a day , Taking Pantoprazole Sodium 40 MG Tablet Delayed Release 1 tablet 1/2 to 1 hour before morning meal Orally Once a day , Taking Ferrous Sulfate , Taking Colace , Taking diphenhydrAMINE HCl , Taking Cyclobenzaprine HCl , Taking Calcium Citrate + D , Taking Albuterol Sulfate , Taking Omeprazole 20 MG Capsule Delayed Release 1 capsule Orally Once a day , Taking SUMAtriptan Succinate 25 MG Tablet TAKE 1 TABLET BY MOUTH AT ONSET OF MIGRAINE. MAY REPEAT ONCE AFTER 2 HOURS IF NEEDED, DO NOT EXCEED 2 TABLETS / 24 HOURS Oral , Taking Fluticasone Propionate 50 MCG/ACT Suspension INSTILL 2 SPRAYS IN EACH NOSTRIL ONCE DAILY Nasal , Taking Amitriptyline HCl 10 MG Tablet TAKE 1 TABLET BY MOUTH EVERY DAY AT BEDTIME Oral , Taking Loratadine 10 MG Tablet TAKE 1 TABLET BY MOUTH EVERY DAY Oral , Taking Lidocaine 5 % Patch APPLY 1 PATCH TOPICALLY TO SKIN, LEAVE ON FOR 12 HOURS AND OFF FOR 12 HOURS DIRECTED External , Taking Acetaminophen Extra Strength 500 MG Tablet TAKE TWO TABLETS BY MOUTH EVERY 8 HOURS NEEDED FOR PAIN Oral , Discontinued Vitamin D3 1000 UNIT Tablet TAKE ONE TABLET BY MOUTH EVERY DAY Oral , Discontinued Lisinopril 5 MG Tablet TAKE ONE TABLET BY MOUTH TWICE A DAY Oral , Discontinued metFORMIN HCl 1000 MG Tablet TAKE ONE TABLET BY MOUTH TWICE A DAY WITH MEALS Oral , Discontinued Atorvastatin Calcium 40 MG Tablet TAKE ONE TABLET BY MOUTH EVERY DAY Oral , Discontinued traMADol HCl 50 MG Tablet (Schedule IV Drug) TAKE ONE TABLET BY MOUTH EVERY 12 HOURS Oral , Discontinued Advair Diskus 500-50 MCG/DOSE Aerosol Powder Breath Activated INHALE ONE PUFF BY MOUTH TWICE A DAY Inhalation , Discontinued Dicyclomine HCl 20 MG Tablet TAKE ONE TABLET BY MOUTH FOUR TIMES A DAY Oral , Notes to Pharmacist: Just prn, Discontinued Ghszvtxopv-UVXO-Tvkxhryu 50-325-40 MG Tablet TAKE ONE TABLET BY MOUTH THREE TIMES A DAY FOR 30 DAYS Oral , Discontinued Albuterol , Medication List reviewed and reconciled with the patient * Allergies:?Motrin, Naproxen, PredniSONE, Advil. Objective: * Vitals:?Wt:217lbs, Ht: 64 in , BMI:37.24Index, BP:111/77mm Hg, Wt-k.43. Assessment: * Assessment: 1.?Iron deficiency anemia - D50.9 (Primary)???2.?Colon cancer screening - Z12.11??? Overall, Chucho appears wel l. She is not having any new or worrisome GI complaints. We did review the GI procedures from last March. We reviewed that her anemia seems to be most likely in relation to her menses as opposed to any chronic GI process. She does have good relief of her reflux on her PPI and I did advise her to continue that. We did review that she would need another screening colonoscopy in 2033 given her negative exam last year and no family history of colorectal cancer. At this point I do not think she needs any other particular workup on my part. I did advise her to continue her iron long-term in regard to the anemia and heavy menses. I have advised Chucho to see me again as needed but to certainly call if she has any problems or questions I can be of assistance with. Chucho was comfortable with this plan. Thank you again for allowing me to participate in Chucho's care. I shall continue to keep you advised of her progress. Plan: * Treatment: 2.?Colon cancer screening? Notes: Repeat colonoscopy in 03/2034?? * Follow Up:?prn * * The named appointment provid er may or may not be the originator of this progress note, and it is not deemed complete until electronically signed by the appointment provider. Sign off status: Pending * Provider:?Jamarcus Banda MD Date:? 025 Generated for Kalpana marx/Cadence/eTransmitting on:?12/10/2024 12:24 PM EDT History and Physical Notes * HPI (History of Present Illness) Category Sub-Category Detail Notes Category Not es incontinence I saw Chucho in follow-up today in regard to her iron deficiency anemia and reflux. We were able to communicate effectively between my Brazilian, her Nepali, and my office staff who is bilingual. As you know, Chucho was admitted last March for some GI bleeding and anemia. She underwent an upper endoscopy and colonoscopy with Dr. Olivo. The colonoscopy was unremarkable. The upper endoscopy revealed a hiatal hernia and a nonobstructing distal esophageal ring. Gastric biopsies were negative for H. pylori. Since the hospitalization she reports that things have been stable and without any further bleeding. She does take pantoprazole daily with good relief of reflux. She is not having any significant heartburn, dysphagia, anorexia, nausea, nor vomiting. She reports that her bowel movements have been regular and without any hematochezia nor melena. She denies any abdominal pain, signs of jaundice, normal unintentional weight loss. She denies any known family history of colorectal cancer. She has been using iron on a daily basis. Her most recent labs from just a month ago showed a hemoglobin of 12.8 and normal MCV. Her hemoglobin had been 9.8 in March 2024. Iron studies just last month were also normal with an iron of 78 and iron saturation of 26%. The ferritin was 17. Her iron studies had improved as compared to April 2024 as well. She does report somewhat heavy and irregular menses.
== END ==
LOC: HO.CARD 10:45
PROVIDERS: PCP Internal Medicine Endocrinology, Diabetes & Metabolism
DX: R94.39 Abnormal result of other cardiovascular function study (principal)
CPT/HCPCS: 93350; Q9957

== ENCOUNTER → 2024-12-10 10:47 | Outpatient (BNV) | payer MEDICAID, SELFPAY | PROVIDERS: PCP Internal Medicine Endocrinology, Diabetes & Metabolism | DX: R06.02 Shortness of breath (principal); R07.9 Chest pain, unspecified | CPT/HCPCS: 93016; 93018; 93350; 93352 ==

== ENCOUNTER 2024-12-12 10:20 | Outpatient (REF) | payer MEDICAID, SELFPAY ==
[2024-12-12 10:52] LABS: Baso%MD 0.8 %; Eos%MD 2.2 %; Hematocrit 40.2 % (37.0-47.0); Hemoglobin 13.2 g/dl (12.0-16.0); IG%MD 0.2 %; Mean Corpuscular HGB Conc 32.8 g/dl (31.0-35.0); Mean Corpuscular Hemoglobin 28.3 pg (27.0-33.0); Mean Corpuscular Volume 86.1 fL (80.0-98.0); Mean Platelet Volume 8.8 fL (9.4-12.3); Mono%MD 6.5 %; Neut%MD 54.3 %; Platelet Count 336 X10*3/uL (160-400); Red Blood Count 4.67 X10*6/uL (4.20-5.50); Red Cell Distribution Width 12.6 % (11.0-16.0); White Blood Count 4.9 X10*3/uL (4.8-10.8)
[2024-12-12 11:25] LABS: Atypical Lymph Absolute Manual 0.2 x10*3/uL; Atypical Lymphs Percent Manual 5 % (0-6); Band Neutrophils Percent 1 % (3-5); Eosinophils Absolute Manual 0.1 X10*3/uL (0.0-0.4); Eosinophils Percent Manual 2 % (0-4); Lymphocytes Absolute Manual 1.9 X10*3/uL (1.2-4.9); Lymphocytes Percent Manual 39 % (20-40); Monocytes Absolute Manual 0.3 X10*3/uL (0.1-1.2); Monocytes Percent Manual 6 % (2-11); Neutrophils Absolute Manual 2.4 X10*3/uL (2.0-8.3); Neutrophils Percent Manual 47 % (45-73)
[2024-12-12 11:28] LABS: Large Platelet PRESENT; Platelet Estimate NORMAL (NORMAL); Platelet Morphology Comment NOTED; RBC Morphology NOTED; Smudge Cells PRESENT; Stomatocytes 1+ (5-14) /OIF; Tear Drop Cells 1+ (0-2) /OIF; Toxic Vacuolation PRESENT
[2024-12-12 11:29] LABS: Alanine Aminotransferase 18 U/L (0-31); Albumin Level 4.3 g/dL (3.5-5.0); Alkaline Phosphatase 55 U/L (39-117); Anion Gap 8 (12-20); Aspartate Amino Transferase 17 U/L (5-31); Bilirubin Total 0.3 mg/dL (0.0-1.0); Blood Urea Nitrogen 15 mg/dL (9-16); Carbon Dioxide 33 mmol/L (22-29); Chloride 106 mmol/L (96-108); Estimated Glomerular Filt Rate > 60; Glucose Random 87 mg/dL (60-115); Iron 55 mcg/dL (30-160); Lactate Dehydrogenase 162 U/L (122-220); Percent Iron Saturation 17 % (15-50); Potassium 4.3 mmol/L (3.3-5.1); Sodium 143 mmol/L (135-145); Total Iron Binding Capacity 331 mcg/dL (228-428); Total Protein 7.8 g/dL (6.5-8.0); Unsaturated Iron Binding 276 ug/dL
[2024-12-12 11:45] LABS: Ferritin 17 ng/mL (10-250)
--- OUTSIDE RECORDS SUMMARY | 2024-12-12 12:07 | XMS_ITS | Clinical Summary ---
Author Organization [facility] Address [address] [place] [address] Care Team Providers Care Restaurant Busser Name Role Phone Unavailable Primary Care Provider [...] 2014 Colonoscopy 2019 COVID-19 Vaccine (3 - 2023- season) 2024, 12/05/2020 Pneumococcal Vaccines 50+ (1 of 1 - PCV) 2024 Zoster (Shingles) Vaccine (1 of 2) 2024 Influenza Vaccine 02/07/2025 Insurance MEDICAID OUT OF STATE [facility] on file
== END 2024-12-12 10:21 | disposition home or self-care (01) ==
LOC: HO.LAB 10:20
PROVIDERS: PCP Internal Medicine Geriatric Medicine; Visit Provider Nurse Practitioner Family
DX: D64.9 Anemia, unspecified (principal)
CPT/HCPCS: 36415; 80053; 82728; 83540; 83615; 85007; 85027

== ENCOUNTER 2024-12-17 13:43 | Outpatient (AMB) | payer MEDICAID, SELFPAY ==
--- NOTE | 2024-12-17 14:16 | MHC.OFFVIS ---
Vital Signs 12/17/24 14:17 Height 5 ft 4 in Weight 225 lb 4.999 oz BMI 38.7 BP 110/64 Blood Pressure Location Lt brachial Position Sitting Pulse 83 Pulse Source Pulse Oximeter Intake Visit Reasons: r/s 10/31 pre-op r shoulder f/u stress echo Real Estate Rental Agent Required: Yes Real Estate Rental Agent Language: Medical Terminologist Name: [email or web address] Accompanied by: Self / Same As Patient Allergies ibuprofen [From Motrin] Allergy (Intermediate, Verified 11/21/24 13:19) Rash naproxen [Naprosyn] Allergy (Intermediate, Verified 11/21/24 13:19) Rash prednisone [PREDNISONE] Allergy (Intermediate, Verified 11/21/24 13:19) RASH, itching aspirin [ASA] Allergy (Verified 11/21/24 13:19) Rash Medication List - Last Reconciled 12/17/24 by Dominic Cohn NP acetaminophen (Tylenol Extra Strength) 1,000 mg (2 x 500 mg) PO Q8H PRN albuterol sulfate 90 mcg/actuation (Ventolin HFA) 2 puffs inhalation Q6H PRN amitriptyline 10 mg PO BEDTIME calcium citrate-vitamin D3 315 mg-5 mcg (200 unit) (Calcium Citrate + D) 1 tab PO DAILY docusate sodium 100 mg PO BID ferrous sulfate 325 mg PO DAILY fluticasone propionate 50 mcg/actuation 2 sprays intranasal DAILY lidocaine 5% 5 patches topical DAILY loratadine 10 mg PO DAILY pantoprazole 40 mg PO BID sumatriptan succinate mg PO tramadol 50 mg PO Q8H PRN 10 days vitamin A palmitate 3,000 mcg PO DAILY HPI Comments Details: This is a 49-year-old female patient coming in for a follow-up appointment. A alarm service technician was used throughout the visit. Patient was previously seen in the office for chest discomfort and palpitations. Subsequently patient underwent a Holter study, echocardiogram and a stress test. At the stress test patient had some chest pain with exercise and therefore underwent a stress echocardiogram following that. Today, patient reports feeling well overall and denies any symptoms of exertional chest pain, shortness of breath, palpitations, dizziness, orthopnea, PND, leg edema, presyncope, or syncope. Patient states that she has plans for shoulder surgery in the future and needs preop cardiac clearance. [facility] Medical History Pre-diabetes GERD (gastroesophageal reflux disease) Hiatal hernia HTN (hypertension) Vitamin deficiency Fatigue Diaphragmatic hernia Dyspareunia in female Heavy menstrual bleeding Vitamin B1 deficiency Prediabetes Obstructive sleep apnea treated with continuous positive airway pressure (CPAP) Asthma Acid reflux Umbilical hernia Surgical History S/P laparoscopic sleeve gastrectomy History of delivery History of endoscopy History of umbilical hernia repair (10/06/17) History of cholecystectomy History of tubal ligation Family History Father No problems noted. Mother Diabetes Hypertension FH: mental illness Maternal Grandmother Hypertension Maternal Uncle Cancer Leukemia Family/Other FH: mental illness Son No problems noted. Son Asthma Glaucoma Son No problems noted. 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 Review of Systems Const Denies chills, Denies fatigue, Denies fever(s), Denies frequent falls, Denies weakness, Denies weight gain and Denies weight loss ENT Denies dizziness Card Denies chest pain, Denies leg edema, Denies lightheadedness, Denies palpitations, Denies dyspnea and Denies dyspnea on exertion Resp Denies cough, Denies dyspnea and Denies dyspnea on exertion GI Denies hematochezia Musc Denies abnormal gait, Denies muscle weakness, Denies numbness, Denies radiating pain into limb and Denies tingling Neuro Denies abnormal gait, Denies dizziness, Denies frequent falls, Denies numbness, Denies tingling and Denies weakness Endo Denies fatigue and Denies palpitations Physical Exam Vital Signs: Last Vital Signs Pulse 83 12/17/24 14:17 BP 110/64 12/17/24 14:17 BMI result Body Mass Index 38.7 Const General: cooperative, healthy appearing, comfortable and no acute distress Orientation/consciousness: patient oriented x3 HEENT Head: Yes normal to inspection Neck Neck: Yes normal visual inspection, Yes trachea midline and Yes supple Chest Chest palpation & inspection: normal inspection of the chest Resp Effort & Inspection: normal respiratory effort Auscultation: clear to auscultation bilaterally, no crackles, no rales, no rhonchi and no wheezes Cardio Jugular venous distension: no JVD Palpation: normal PMI Rate: regular rate Rhythm: regular rhythm Heart sounds: S1 normal heart sound present, S2 normal heart sound present, no click, no gallops, no murmurs and no rubs Peripheral pulses: Peripheral pulses 2+ throughout GI Inspection: Yes normal to inspection Palpation (GI): Soft to palpation Auscultation: normal bowel sounds Skin General skin exam: no rashes or lesions noted Neuro General: patient oriented x3 Extrem General: Yes normal to inspection, No no pedal edema and No calf tenderness Psych Appearance: grossly normal Mental Status: mental status grossly normal Speech and movement: Normal speech and movement present Assessment & Plan Assessment & Plan (1) Preoperative cardiovascular examination: Code(s): Z01.810 - Encounter for preprocedural cardiovascular examination (2) Atypical chest pain: Code(s): R07.89 - Other chest pain Category: Medical (3) Palpitations: Code(s): R00.2 - Palpitations Category: Medical Plan 09/13/2024-patient's echo showed normal LV systolic function with an ejection fraction between 55-60% with no wall motion abnormalities or valvular pathology. 09/13/2024-patient underwent a Holter study that showed baseline normal sinus rhythm with an average heart rate of 76 beats per minute, with rare PACs and PVCs. 09/17/2024-patient initially went a treadmill stress test with a moderate workload, with reports of 6/10 burning chest pain that resolved in recovery and without any EKG changes. 12/10/2024-patient underwent a stress echo for further evaluation that was normal. Given the resolution of her symptoms and above findings, no further testing indicated at this time. Patient can proceed with her planned procedure for right shoulder repair with the consideration that patient is at a low cardiac risk. Blood pressure within normal limits. Advised heart healthy diet, regular exercise, losing weight, and management of vascular risk factors. Follow up in the office on an as-needed basis. In the interim, patient will call the office with any concerns or change in symptoms. This note was generated using voice recognition software. While every effort has been made to ensure accuracy and proper cloth bale header, there may be occasional errors that could affect the content or meaning of the described symptoms. Coding Level of Care Code Est Pt Level 4 (54102) Complex EM visit Add On G2211 Diagnoses Preoperative cardiovascular examination Z01.810 Atypical chest pain R07.89 Palpitations R00.2 Time Spent (min) 31 Comment Time spent in reviewing the chart, test results, assessment, counseling and documentation.
[2024-12-17 14:17] VITALS: BP 110/64; PULSE 83; BMI 38.7
--- OUTSIDE RECORDS SUMMARY | 2024-12-17 16:14 | XMS_ITS | Encounter Summary ---
Author Organization [employer] Address [address] [facility] [address] [place] [address] Care Team Providers Care Event Marketing Assistant Name Role Phone Name, Morales RAMSEY Primary Care Provider [phone] Reason for Visit * Reason Comments Care Coordination C3CM f/u call- LVM Encounter Details Date Type Department Care Team (Latest Contact Info) Description 12/16/2024 Patient Outreach [facility] [address] [place] [address] Name, MD Morales [address] [place] [address] Care Coordination (C3CM f/u call- LVM ) Social History Tobacco Use Types Packs/Day Years Used Date Smoking Tobacco: Never Smokeless Tobacco: Never Alcohol Use Standard Drinks/Week Comments Never 0 (1 standard drink = 0.6 oz pur e alcohol) Depression Answer Date Recorded Patient Health Questionnaire-9 Score 17 12/13/2024 Patient Health Questionnaire-9 Score 17 12/13/2024 Last PHQ-9: Questionnaire Data Not on file 0 12/13/2024 Housing Stability Answer Date Recorded What is [...] Answer Date Recorded Patient Health Questionnaire-2 Score 5 12/13/2024 Internet Access Answer Date Recorded Internet Access [...] Progress Notes * Yesica Palencia RN - 12/16/2024 9:29 AM EDT CM Yesica Palencia RN placed outbound call with CHW Mirlande Lopez to patient for follow up call. No answer at this time. LVM introducing herself from [facility] CM Department. Requested callback. CM reinforced direct contact information or CHW for any additional questions or concerns. Education provided on Walk-In Ur[facility] Care located in [facility] of [facility]. Patient provided with after-hours line for [facility], , which offer night time triage service and option to transfer to equipment application specialist provider if needed. CM will attempt another follow up call within 10 days. documented in this encounter Plan of Treatment Upcoming Encounters Date Type Department Care Team ([facility] st Contact Info) Description 02/19/2025 10:45 AM EDT Office Visit [facility] [address] [place] [address] Name, MD Morales [address] [place] [address] documented as of this encounter Visit Diagnoses Not on filedocumented in this encounter Additional Health Concerns Assessment Noted Time PHQ-9 Depression Total Score: 17 12/13/ 025 8:17 AM EDT documented as of this encounter Care Teams Event Marketing Assistant Relationship Specialty Start Date End Date Name, MD Morales [address] [place] [address] PCP - General Family Medicine 07/01/21 documented as of this encounter
== END 2024-12-17 14:36 | disposition home or self-care (01) ==
LOC: HO.HCS 13:44
PROVIDERS: PCP Internal Medicine Geriatric Medicine
DX: Z01.810 Encounter for preprocedural cardiovascular examination (principal); R07.89 Other chest pain; R00.2 Palpitations
CPT/HCPCS: 99214

== ENCOUNTER → 2024-12-17 13:43 | Outpatient (BNVA) | payer MEDICAID, SELFPAY | PROVIDERS: PCP Internal Medicine Geriatric Medicine | DX: Z01.810 Encounter for preprocedural cardiovascular examination (principal); R00.2 Palpitations; R07.89 Other chest pain | CPT/HCPCS: 99212 ==

== ENCOUNTER 2024-12-20 13:50 | Outpatient (REF) | payer MEDICAID, SELFPAY ==
--- OUTSIDE RECORDS SUMMARY | 2024-12-20 13:55 | XMS_ITS | Clinical Summary ---
Author Organization [facility] Address [address] [place] [address] Care Team Providers Care Manager Ccu Name Role Phone Unavailable Primary Care Provider [...] Vaccine 02/07/2025 [place] [facility] [place]
[2024-12-20 14:22] LABS: Baso%MD 0.8 %; Eos%MD 1.7 %; Hematocrit 39.5 % (37.0-47.0); Hemoglobin 13.1 g/dl (12.0-16.0); IG%MD 0.1 %; Immature Retic Fraction 5.5 % (3.0-15.9); Lymph%MD 27.7 %; Mean Corpuscular HGB Conc 33.2 g/dl (31.0-35.0); Mean Corpuscular Hemoglobin 28.6 pg (27.0-33.0); Mean Corpuscular Volume 86.2 fL (80.0-98.0); Mono%MD 6.8 %; Neut%MD 62.9 %; Platelet Count 328 X10*3/uL (160-400); Red Blood Count 4.58 X10*6/uL (4.20-5.50); Red Cell Distribution Width 12.3 % (11.0-16.0); Reticulocyte Percent 1.1 % (0.5-1.8); Reticulocytes Absolute 0.051 X10*6/uL (0.026-0.095); White Blood Count 7.1 X10*3/uL (4.8-10.8)
[2024-12-20 14:40] LABS: Lactate Dehydrogenase 158 U/L (122-220)
[2024-12-20 14:49] LABS: Haptoglobin 159 mg/dL (35-250)
[2024-12-20 15:03] LABS: Erythrocyte Sedimentation Rate 9 MM/HR (0-20)
[2024-12-20 15:12] LABS: Band Neutrophils Percent 2 % (3-5); Basophils Abs Manual 0.1 X10*3/uL (0.0-0.2); Basophils Percent Manual 1 % (0-2); Eosinophils Absolute Manual 0.2 X10*3/uL (0.0-0.4); Eosinophils Percent Manual 3 % (0-4); Lymphocytes Absolute Manual 1.8 X10*3/uL (1.2-4.9); Lymphocytes Percent Manual 25 % (20-40); Monocytes Absolute Manual 0.4 X10*3/uL (0.1-1.2); Monocytes Percent Manual 6 % (2-11); Neutrophils Absolute Manual 4.6 X10*3/uL (2.0-8.3); Neutrophils Percent Manual 63 % (45-73)
[2024-12-20 15:14] LABS: Platelet Estimate NORMAL (NORMAL); Platelet Morphology Comment NORMAL; RBC Morphology NORMAL
[2024-12-20 15:51] LABS: Folate 11.3 ng/mL (> or = 4.0); Vitamin B12 733 pg/mL (200-900)
[2024-12-24 15:38] LABS: IgA 336 mg/dL (47-310); IgG 1547 mg/dL (600-1640); IgM 92 mg/dL (50-300)
[2024-12-25 21:14] LABS: Anti Nuclear Antibody Pattern Nuclear, Speckled; Anti Nuclear Antibody Screen POSITIVE (NEGATIVE)
== END 2024-12-20 13:51 | disposition home or self-care (01) ==
LOC: HO.LAB 13:50
PROVIDERS: PCP Internal Medicine; Visit Provider Nurse Practitioner Family
DX: D64.9 Anemia, unspecified (principal); R79.9 Abnormal finding of blood chemistry, unspecified
CPT/HCPCS: 82607; 82746; 82784; 83010; 83615; 85007; 85027; 85045; 85652; 86038; 86039; 86334

== ENCOUNTER 2025-02-19 11:01 | Outpatient (REF) | payer MEDICAID, SELFPAY ==
--- OUTSIDE RECORDS SUMMARY | 2024-08-07 10:00 | XMS_ITS ---
Author Organization [facility] Address [address] [place] [address] Care Team Providers Care Vacuum Kettle Cook Name Role Phone Name Morales RAMSEY Primary Care Provider Jamarcus Tubbs [phone] REASON FOR VISIT Patient presents today for HEMMORHAGE Encounters Encounter Location Date Provider Diagnosis [facility] [address] [place] [phone] 08/07/2024 Jamarcus Banda Plan Of Treatment No Information Progress Notes * CHUCHO HOLTDOB:1975 (49 yo F)Acc No.[id number]:08/07/2024 Progress Notes Patient: CHUCHO WILSON Provider: Kenney Banda MD :1975 A ge:49 Y S ex:Female Date:08/07/2024 Address:[address] [place] [address], [facility] Pcp:Morales Ly MD Subjective: * Chief Complaints: [...] 0 08/07/2024 Generated for Kalpana marx/Cadence/eTransmitting on: 0 02/19/2025 06:53 AM EDT
--- OUTSIDE RECORDS SUMMARY | 2025-02-19 12:00 | XMS_ITS | Clinical Summary ---
Author Organization [facility] [address] Address [address] [phone] Phone Care Team Providers Care Youth Care Professional Name Role Phone Unavailable Primary Care Provider [...] Active Problems No known active problems Immunizations Immunization Administration Dates Next Due Influenza, split virus, [...] 65 03/15/2024 8:50 AM EDT Temperature 36.6 C (97.9 F) 03/15/2024 8:50 AM EDT Respiratory Rate - - Oxygen Saturation 98% [...] confidentiality may be protected by state law. If your state requires such protection, then the state law prohibits you from making any further disclosure of the information without the specific written consent of the person to whom it pertains, or as otherwise permitted by law. A general authorization for the release of medical or other information is NOT sufficient for this purpose. For additional information please refer to http://education.ParkAround.com.SubtleData/faq/EPA826 (This link is being provided for informational/ educational purposes only.) The performance of this assay has not been clinically validated in patients less than 2 years old. Blood 01/29/2024 10:5 5 AM EDT 01/29/2024 10:56 AM EDT Narrative Resulting Agency Comment Performing Lab: Site ID: [id number] Name: [facility] Address: [address] [place] [phone] Director: Guilherme Quinteros M.D. us Rachael JANE LAB BLOOD ORDERABLES F inal Result [facility] [address] [place] [address] * Hepatitis C Ab with reflex to HCV PCR (01/29/2024 10:55 AM EDT) Hepatitis C Ab NON-REACT KIERAN NON-REACT KIERAN [facility] Comment: HCV antibody was non-reactive. There is no laboratory evidence of HCV infection. In most cases, no further action is required. However, if recent HCV exposure is suspected, a test for HCV RNA (test code 17377) is suggested. For additional information please refer to http://Qranio.Diasome/faq/YFQ84q5 (This link is being provided for informational/ educational purposes only.) 01/29/2024 10:5 5 AM EDT 01/29/2024 10:56 AM EDT Narrative Resulting Agency Comment Performing Lab: Site ID: [id number] Name: [facility] Address: [address] [place] [phone] Director: Guilherme Quinteros M.D. Rachael JANE LAB BLOOD ORDERABLES F inal Result [facility] [address] [place] [address] * (ABNORMAL) Lipid panel with reflex to direct LDL (Q) (01/29/2024 10:51 AM EDT) Cholesterol, Total 203(H) <200 mg/dL [facility] HDL 57 > OR = 50 mg/dL [facility] Triglycerides 119 <150 mg/dL [facility] LDL Cholesterol 123(H) mg/dL (calc) [facility] Comment: Reference range: <100 Desirable range <100 mg/dL for primary prevention; <70 mg/dL for patients with CHD or diabetic patients with > or = 2 CHD risk factors. LDL-C is now calculated using the Misael-Sherry calculation, which is a validated novel method providing better accuracy than the Friedewald equation in the estimation of LDL-C. Misael ANNE et al. BELLA. 2013;310(19): 3306-0383 (http://education.GreenOwl Mobile.SubtleData/faq/WDU901) Chol/HDL Ratio 3.6 <5.0 (calc) [facility] Non-HDL Cholesterol 146(H) <130 mg/dL (calc) [facility] Comment: For patients with diabetes plus 1 major ASCVD risk factor, treating to a non-HDL-C goal of <100 mg/dL (LDL-C of <70 mg/dL) is considered a therapeutic option. 01/29/2024 10:5 1 AM EDT 01/29/2024 10:52 AM EDT Narrative Resulting Agency Comment Performing Lab: Site ID: [id number] Name: [facility] Address: [address] [place] [phone] Director: Guilherme Quinteros M.D. Rachael JANE LAB BLOOD ORDERABLES F inal Result [facility] [address] * (ABNORMAL) Comprehensive metabolic panel (01/29/2024 10:51 AM EDT) Glucose 79 65 - 99 mg/dL [facility] Comment: Fasting reference interval BUN 14 7 - [...] EDT Narrative Resulting Agency Comment Performing Lab: Site ID: [id number] Name: [facility] Address: [address] [place] [phone] Director: Guilherme Quinteros M.D. Rachael JANE LAB BLOOD ORDERABLES F inal Result [facility] [address] [place] [address] from Last 3 Months or Most Recently Relevant to Health Maintenance [place]
--- OUTSIDE RECORDS SUMMARY | 2025-02-19 12:00 | XMS_ITS | Clinical Summary ---
Author Organization [facility] Address [address] [place] [address] Care Team Providers Care Kitchen Worker Name Role Phone Unavailable Primary Care [...] 92 01/19/2021 7:42 PM EDT Temperature 37 C (98.6 F) 01/19/2021 7:42 PM EDT Respiratory Rate 18 [...] Vaccine 02/07/2025 Insurance MEDICAID OUT OF STATE [facility] [place] file
--- OUTSIDE RECORDS SUMMARY | 2025-02-19 12:00 | XMS_ITS | Encounter Summary ---
Author Organization [employer] Address [address] [facility] [address]t [place] [address] Care Team Providers Care Housing Installer Name Role Phone Name, Morales RAMSEY Primary Care Provider [phone] Reason for Visit * Reason Comments Med Refill Encounter Details Date Type Department Care Team ([facility] st Contact Info) Description 12/16/2024 Refill [facility] [address] [place] [address] Name, MD Morales [address] [place] [address] Asthma, unspecified asthma severity, unspecified whether complicated, unspecified whether persistent Social History Tobacco Use Types Packs/Day Years [...] Care Team (Late st Contact Info) Description 05/06/2025 9:30 AM EDT Office Visit [facility] [address] [place] [address] Name, MD Morales [address] [place] [address] documented as of this encounter Visit Diagnoses Diagnosis Asthma, unspecified asthma severity, unspecified whether complicated, unspecified whether persistent documented in this encounter Additional Health Concerns Assessment Noted Time PHQ-9 Depression Total Score: 17 025 8:17 AM EDT documented as of this encounter Care Teams Housing Installer Relationship Specialty Start Date End Date Name, MD Morales [address] [place] [address] PCP - General Family Medicine 07/01/21 documented as of this encounter
[2025-02-19 12:24] LABS: HBS Num1 21.62 mIU/mL (0-7.99); HBsAGNum1 0.39 S/CO (0.00-0.99); HIV Num 1 0.04 S/CO (0.00-0.99); Hepatitis B Surface Antigen Negative (Negative); ~HepC Num1 0.10 S/CO (0.00-0.79); ~Hepatitis B Surface Antibody REACTIVE (Nonreactive); ~Hepatitis C Antibody Nonreactive (Nonreactive)
== END 2025-02-19 11:02 | disposition home or self-care (01) ==
LOC: HO.HHCL 11:01
PROVIDERS: PCP Internal Medicine Geriatric Medicine; Referring Provider Nurse Practitioner Family; Visit Provider Internal Medicine Geriatric Medicine
DX: Z11.3 Encounter for screening for infections with a predominantly sexual mode of transmission (principal); Z11.4 Encounter for screening for human immunodeficiency virus [HIV]; Z11.59 Encounter for screening for other viral diseases; D64.9 Anemia, unspecified
CPT/HCPCS: 36415; 80053; 82728; 83540; 85025; 86592; 86706; 86803; 87340; 87389; 88184; 88185

== ENCOUNTER 2025-02-28 12:08 | Outpatient (REF) | payer MEDICAID, SELFPAY ==
--- OUTSIDE RECORDS SUMMARY | 2024-08-07 10:00 | XMS_ITS ---
Author Organization [facility] Address [address] [place] [address] Care Team Providers Care Sr. Social Media & Mobile Manager Name Role Phone Name Morales RAMSEY Primary Care Provider Jamarcus Tubbs [phone] REASON FOR VISIT Patient presents today for HEMMORHAGE Encounters Encounter Location Date Provider Diagnosis [facility] [address] [place] [address] 08/07/2024 Jamarcus Banda Plan Of Treatment No Information Progress Notes * CHUCHO HOLTDOB:1975 (49 yo F)Acc No.[id number]:08/07/2024 Progress Notes Patient: CHUCHO WILSON Provider: Kenney Banda MD :1975 A ge:49 Y S ex:Female Date:08/07/2024 Address:[address] [place] [address], [facility] Pcp:Morales Ly MD Subjective: * Chief Complaints: [...] 08/07/2024 Generated for Kalpana marx/Cadence/eTransmitting on: 0 02/28/2025 12:10 PM EDT
--- NOTE | ~2025-02-28 | MM_ITS ---
EXAMINATION: MM SCREENING DIGITAL BREAST TOMOSYNTHESIS, BILATERAL CLINICAL INFORMATION: Screening. Asymptomatic. COMPARISON: Mammography: Comparison is made with available priors TECHNIQUE: Digital breast mammography with tomosynthesis is performed in both the craniocaudal and mediolateral oblique views along with computer-aided detection (CAD). FINDINGS: There are scattered areas of fibroglandular density (ACR BI-RADS breast composition Category b). There are no significant masses, abnormal calcifications, or other abnormalities. MM/MM tomosynthesis screening BI IMPRESSION: No mammographic evidence of malignancy. ASSESSMENT: BI-RADS BI-RADS 1 - Negative RECOMMENDATION: Routine annual mammography screening. 1 year F/U This examination should not preclude the clinical evaluation of a suspicious palpable abnormality. This patient's information was entered into a reminder system with a target due date for their next mammogram. Electronically signed by: Isabella Cullen DO 03/04/2025 12:54 PM EDT
--- OUTSIDE RECORDS SUMMARY | 2025-02-28 12:10 | XMS_ITS | Clinical Summary ---
Author Organization [facility] [address] Address [address] [place] [id number] Phone Care Team Providers Care Religious Education Director Name Role Phone Unavailable Primary Care [...] w/reflexes (Q) (01/29/2024 10:55 AM EDT) Pathologist [facility] HIV Ag/Ab, 4th Generation NON-REACT KIERAN [...] purpose. For additional information please refer to http://education.TROVE [employer].ProteoMediX/faq/BIG933 (This link is being provided for informational/ educational purposes only.) The performance of this assay has not been clinically validated in patients less than 2 years old. Blood 01/29/2024 10:5 5 AM EDT 01/29/2024 10:56 AM EDT Narrative Resulting Agency Comment Performing Lab: Site ID: [id number] Name: [facility] Address: [address] [place] [phone] Director: Guilherme Quinteros M.D. us Rachael JANE LAB BLOOD ORDERABLES F inal Result [facility] [address] [place] [address] * Hepatitis C Ab with reflex to HCV PCR (01/29/2024 10:55 AM EDT) Hepatitis C Ab NON-REACT KIERAN NON-REACT KIERAN [facility] Comment: HCV antibody was non-reactive. There is no laboratory evidence of HCV infection. In most cases, no further action is required. However, if recent HCV exposure is suspected, a test for HCV RNA (test code 01665) is suggested. For additional information please refer to http://Wonder [employer] Media.FaceCake Marketing Technologies/faq/ZGF95o4 (This link is being provided for informational/ educational purposes only.) 01/29/2024 10:5 5 AM EDT 01/29/2024 10:56 AM EDT Narrative Resulting Agency Comment Performing Lab: Site ID: [id number] Name: [facility] Address: [address] [place] [phone] Director: Guilherme Quinteros M.D. Rachael JANE LAB BLOOD ORDERABLES F inal Result [facility] [address] [place] [address] * (ABNORMAL) Lipid panel with reflex to [...] LDL-C. Misael ANNE et al. BELLA. 2013;310(19): 0819-6604 (http://education.Linki.ProteoMediX/faq/CAP226) Chol/HDL Ratio 3.6 <5.0 (calc) [facility] Non-HDL Cholesterol 146(H) <130 mg/dL (calc) [facility] Comment: For patients with diabetes plus 1 major ASCVD risk factor, treating to a non-HDL-C goal of <100 mg/dL (LDL-C of <70 mg/dL) is considered a therapeutic option. 01/29/2024 10:5 1 AM EDT 01/29/2024 10:52 AM EDT Narrative Resulting Agency Comment Performing Lab: Site ID: [id number] Name: [facility] Address: [address] [place] [phone] Director: Guilherme Quinteros M.D. Rachael JANE LAB BLOOD ORDERABLES F inal Result [facility] [address] * (ABNORMAL) Comprehensive metabolic panel (01/29/2024 [...] Comment Performing Lab: Site ID: [id number] Name: [facility] Address: [address] [place] [phone] Director: Guilherme Quinteros M.D. Rachael JANE LAB BLOOD ORDERABLES F inal Result [facility] [address] [place] [address] from Last 3 Months or Most Recently Relevant to Health Maintenance Insurance [place]
--- OUTSIDE RECORDS SUMMARY | 2025-02-28 12:10 | XMS_ITS | Encounter Summary ---
Author Organization [employer] Address [address] [facility] [address] [place] [address] Care Team Providers Care Vending Machine Operator Name Role Phone Name, Morales RAMSEY Primary Care Provider [phone] Reason for Visit * Reason Comments Med Refill Encounter Details Date Type Department Care Team ([facility] st Contact Info) Description 12/16/2024 Refill [facility] [address] [place] [address] Name, MD Morales [address] [place] [address] Asthma, unspecified asthma severity, unspecified whether complicated, [...] Description 05/06/2025 9:30 AM EDT Office Visit [facility] [address] [place] [phone] Name, MD Morales [address] [place] [phone] documented as of this encounter Visit Diagnoses Diagnosis Asthma, unspecified asthma severity, unspecified whether complicated, unspecified whether persistent documented in this encounter Additional Health Concerns Assessment Noted Time PHQ-9 Depression Total Score: 17 025 8:17 AM EDT documented as of this encounter Care Teams Vending Machine Operator Relationship Specialty Start Date End Date Name, MD Morales [address] [place] [id number] PCP - General Family Medicine 07/01/21 documented as of this encounter
--- OUTSIDE RECORDS SUMMARY | 2025-02-28 12:10 | XMS_ITS | Clinical Summary ---
Author Organization [facility] Address [address] [place] [address] Care Team Providers Care Rn Maternity Name Role Phone Unavailable Primary Care Provider [...] Vaccine 02/07/2025 Insurance MEDICAID OUT OF STATE [facility] [place] [facility] [place]
== END 2025-02-28 12:09 | disposition home or self-care (01) ==
LOC: HO.MAMMO 12:08
PROVIDERS: Visit Provider Internal Medicine Geriatric Medicine
DX: Z12.31 Encounter for screening mammogram for malignant neoplasm of breast (principal)
CPT/HCPCS: 77063; 77067

== ENCOUNTER → 2025-02-28 12:30 | Outpatient (BNV) | payer MEDICAID, SELFPAY | PROVIDERS: Visit Provider Internal Medicine | DX: Z12.31 Encounter for screening mammogram for malignant neoplasm of breast (principal) | CPT/HCPCS: 77063; 77067 ==

== ENCOUNTER 2025-03-18 11:58 | Outpatient (AMB) | payer MEDICAID, SELFPAY ==
--- NOTE | 2025-03-18 12:37 | MHC.OFFVIS ---
Vital Signs 03/18/25 12:46 Height 5 ft 4 in Weight 224 lb BMI 38.4 Intake Visit Reasons: Preop RT shoulder 03/28/25 DR Intake Note: Traci is a 49 year old female who presents with complaints of progressively worsening right shoulder pain and stiffness. She describes her pain as sharp and severe in nature. Most of the pain is along the superior and lateral aspects of her shoulder. Her symptoms have gotten worse over the last year in spite of continued non operative treatments. She has done physical therapy exercises which aggravated her pain. She has failed the last 6 weeks of conservative treatment. She has tried Tylenol and anti-inflammatory medicines which gave her minimal relief she reports difficulty lifting her right hand above shoulder height. Industrial Furnace Fabricator Required: Yes Industrial Furnace Fabricator Services: Industrial Furnace Fabricator Offered & Declined Accompanied by: Daughter Allergies ibuprofen (From Motrin) Allergy (Intermediate, Verified 03/18/25 12:46) Rash naproxen (Naprosyn) Allergy (Intermediate, Verified 03/18/25 12:46) Rash prednisone (PREDNISONE) Allergy (Intermediate, Verified 03/18/25 12:46) RASH, itching aspirin (ASA) Allergy (Verified 03/18/25 12:46) Rash Medication List - Last Reconciled 03/18/25 by Best Sierra MD acetaminophen (Tylenol Extra Strength) 1,000 mg (2 x 500 mg) PO Q8H PRN albuterol sulfate 90 mcg/actuation (Ventolin HFA) 2 puffs inhalation Q6H PRN MDD wheezing amitriptyline 10 mg PO BEDTIME PRN calcium citrate-vitamin D3 315 mg-5 mcg (200 unit) (Calcium Citrate + D) 1 tab PO DAILY docusate sodium 100 mg PO BID PRN ferrous sulfate 325 mg PO 2XW fluticasone propionate 50 mcg/actuation 2 sprays intranasal DAILY PRN lidocaine 5% 5 patches topical DAILY PRN loratadine 10 mg PO DAILY PRN pantoprazole 40 mg PO BID PRN sumatriptan succinate 25 mg PO DAILY PRN tramadol 50 mg PO Q8H PRN 10 days vitamin A palmitate 3,000 mcg PO 2XW PFSH Medical History Back pain Hx of transfusion of packed red blood cells Bipolar 1 disorder History of headache Pre-diabetes GERD (gastroesophageal reflux disease) Hiatal hernia HTN (hypertension) Vitamin deficiency Fatigue Diaphragmatic hernia Dyspareunia in female Heavy menstrual bleeding Vitamin B1 deficiency Prediabetes Obstructive sleep apnea treated with continuous positive airway pressure (CPAP) Asthma Acid reflux Umbilical hernia Surgical History H/O colonoscopy S/P laparoscopic sleeve gastrectomy History of delivery History of endoscopy History of umbilical hernia repair (10/06/17) History of cholecystectomy History of tubal ligation Family History Father No problems noted. Mother Diabetes Hypertension FH: mental illness Maternal Grandmother Hypertension Maternal Uncle Cancer Leukemia Family/Other FH: mental illness Son No problems noted. Son Asthma Glaucoma Son No problems noted. 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 Physical Exam Vital Signs: BMI result Body Mass Index 38.4 Const Other: Well-nourished well-developed very friendly female awake alert and oriented x3 in no acute distress Extrem Other: Right shoulder examination shows decreased active and passive range of motion when compared to her left shoulder, 4+ out of 5 strength with supraspinatus testing, positive impingement signs, tenderness over her acromioclavicular joint, no instability Results Reviewed Results Reviewed: MRI of the patient's right shoulder show severe acromioclavicular joint narrowing, a type 3 acromion, signal change within the supraspinatus tendon most likely due to adhesive capsulitis Assessment & Plan Assessment & Plan (1) Impingement of right shoulder: Code(s): M25.811 - Other specified joint disorders, right shoulder Category: Medical Plan Ms. Marco Ortega presents with right shoulder pain and stiffness due to impingement syndrome, acromioclavicular joint arthritis and adhesive capsulitis. I had a lengthy discussion with the patient regarding the treatment options. At this point she has failed continued non operative treatments. The risks and benefits of right shoulder surgery were discussed at length with the patient. The patient wishes to proceed. Surgery will involve right shoulder arthroscopic distal clavicle excision, right shoulder arthroscopic acromioplasty, right shoulder arthroscopic capsular release and right shoulder manipulation under anesthesia. The patient was given a prescription for oxycodone at her preoperative appointment. She will as instructed. Feel free to call me at any time should questions regarding her orthopedic management arise. I spent 20 minutes in reviewing the patient's records and imaging studies, seeing the patient and documenting in the medical record. Medications: New oxycodone Partial Fill upon patient request. Take 1-2 tabs every 4 hours as needed for pain following your right shoulder surgery. 10 mg (2 x 5 mg) PO Q4H PRN 40 tabs 0RF pain Coding Level of Care Code Est Pt Level 3 (26015) Complex EM visit Add On G2211 Diagnoses Impingement of right shoulder M25.817
[2025-03-18 12:46] VITALS: BMI 38.4
== END 2025-03-18 12:53 | disposition home or self-care (01) ==
LOC: HO.HOS 11:58
PROVIDERS: PCP Internal Medicine Geriatric Medicine; Visit Provider Orthopaedic Surgery
DX: M25.811 Other specified joint disorders, right shoulder (principal)
CPT/HCPCS: 99214

== ENCOUNTER → 2025-03-18 11:58 | Outpatient (BNVA) | payer MEDICAID, SELFPAY | PROVIDERS: PCP Internal Medicine Geriatric Medicine; Visit Provider Orthopaedic Surgery | DX: M25.811 Other specified joint disorders, right shoulder (principal) | CPT/HCPCS: 99212 ==

== ENCOUNTER 2025-03-28 08:10 | Day surgery (SDC) | payer MEDICAID, SELFPAY ==
--- OUTSIDE RECORDS SUMMARY | 2024-08-07 10:00 | XMS_ITS ---
Author Organization [facility] Address [address] [place] [address] Care Team Providers Care Industrial Eng Name Role Phone Name Morales RAMSEY Primary Care Provider Jamarcus Tubbs [phone] REASON FOR VISIT Patient presents today for HEMMORHAGE Encounters Encounter Location Date Provider Diagnosis [facility] [address] [place] [phone] 08/07/2024 Jamarcus Banda Plan Of Treatment No Information Progress Notes * CHUCHO HOLTDOB:1975 (49 yo F)Acc No.[id number]:08/07/2024 Progress Notes Patient: CHUCHO WILSON Provider: Kenney Banda MD :1975 A ge:49 Y S ex:Female Date:08/07/2024 Address:[address] [place] [address], [facility] Pcp:Morales Ly MD Subjective: * Chief Complaints: [...] 08/07/2024 Generated for Kalpana marx/Cadence/eTransmitting on: 0 02/20/2025 07:28 AM EDT
--- OUTSIDE RECORDS SUMMARY | 2025-02-20 07:28 | XMS_ITS | Encounter Summary ---
Author Organization [employer] Address [address] [facility] 7t [place] [address] Care Team Providers Care Woods Boss Name Role Phone Name, Morales RAMSEY Primary Care Provider [phone] Reason for Visit * Reason Comments Med Refill Encounter Details Date Type Department Care Team ([facility] st Contact Info) Description 12/16/2024 Refill [facility] [address] [place] [address] Name, MD Morales [address] [place] [address] Asthma, unspecified asthma severity, unspecified whether complicated, [...] Description 05/06/2025 9:30 AM EDT Office Visit [facility] [address] [place] [address] Name, MD Morales [address] [place] [address] documented as of this encounter Visit Diagnoses Diagnosis Asthma, unspecified asthma severity, unspecified whether complicated, unspecified whether persistent documented in this encounter Additional Health Concerns Assessment Noted Time PHQ-9 Depression Total Score: 17 025 8:17 AM EDT documented as of this encounter Care Teams Woods Boss Relationship Specialty Start Date End Date Name, MD Morales [address] [place] [address] PCP - General Family Medicine 07/01/21 documented as of this encounter
--- OUTSIDE RECORDS SUMMARY | 2025-02-20 07:28 | XMS_ITS | Clinical Summary ---
Author Organization [facility] Address [address] [place] [address] Care Team Providers Care Senior Interactive Developer Name Role Phone Unavailable Primary Care [...] Vaccine 02/07/2025 [place] [facility] [place]
--- OUTSIDE RECORDS SUMMARY | 2025-02-20 07:28 | XMS_ITS | Clinical Summary ---
Author Organization [facility] [address] Address [address] [place] [phone] Phone Care Team Providers Care Cross Roller Name Role Phone Unavailable Primary Care Provider [...] w/reflexes (Q) (01/29/2024 10:55 AM EDT) Pathologist [facility] HIV Ag/Ab, 4th Generation NON-REACT KIERAN NON-REACT [...] purpose. For additional information please refer to http://education.MATINAS BIOPHARMA.TableGrabber/faq/BWK880 (This link is being provided for informational/ educational purposes only.) The performance of this assay has not been clinically validated in patients less than 2 years old. Blood 01/29/2024 10:5 5 AM EDT 01/29/2024 10:56 AM EDT Narrative Resulting Agency Comment Performing Lab: Site ID: [id number] Name: [facility] Address: [address] [place] [phone] Director: Guilherme Quinteros M.D. us Rachael JANE LAB BLOOD ORDERABLES F inal Result [facility] [address] [place] [address] * Hepatitis C Ab with reflex to HCV PCR (01/29/2024 10:55 AM EDT) Hepatitis C Ab NON-REACT KIERAN NON-REACT KIERAN [facility] Comment: HCV antibody was non-reactive. There is no laboratory evidence of HCV infection. In most cases, no further action is required. However, if recent HCV exposure is suspected, a test for HCV RNA (test code 80552) is suggested. For additional information please refer to http://My Study Rewards.Apex Clean Energy/faq/AJL09i5 (This link is being provided for informational/ educational purposes only.) 01/29/2024 10:5 5 AM EDT 01/29/2024 10:56 AM EDT Narrative Resulting Agency Comment Performing Lab: Site ID: [id number] Name: [facility] Address: [address] [place] [phone] Director: Guilherme Quinteros M.D. Rachael JANE LAB BLOOD ORDERABLES F inal Result [facility] [address] [place] [address] * (ABNORMAL) Lipid panel with reflex to [...] LDL-C. Misael ANNE et al. BELLA. 2013;310(19): 3934-9211 (http://education.[employer].TableGrabber/faq/MAN227) Chol/HDL Ratio 3.6 <5.0 (calc) [facility] Non-HDL Cholesterol 146(H) <130 mg/dL (calc) [facility] Comment: For patients with diabetes plus 1 major ASCVD risk factor, treating to a non-HDL-C goal of <100 mg/dL (LDL-C of <70 mg/dL) is considered a therapeutic option. 01/29/2024 10:5 1 AM EDT 01/29/2024 10:52 AM EDT Narrative Resulting Agency Comment Performing Lab: Site ID: [id number] Name: [facility] Address: [address] [place] [phone] Director: Guilherme Quinteros M.D. Rachael JANE LAB BLOOD ORDERABLES F inal Result [facility] [address] * (ABNORMAL) Comprehensive metabolic panel (01/29/2024 [...] Comment Performing Lab: Site ID: [id number] Name: [facility] Address: [address] [place] [phone] Director: Guilherme Quinteros M.D. Rachael JANE LAB BLOOD ORDERABLES F inal Result [facility] [address] [place] [address] from Last 3 Months or Most Recently Relevant to Health Maintenance [place]
[2025-03-14 11:15] VITALS: BMI 38.8
--- NOTE | 2025-03-14 13:22 | HO.ANESPROP2 ---
Documented by User: Sabrina Marsh NP 03/14/25 13:30 HPI - Anesthesia Eval Consult details Narrative: 49 yr old female for right Shoulder Arthroscopy,distal clavicle excision,acromioplasty,capsular release,manipulation Had extensive cardiac work up including holter, echo & stress test in 2024 for reports of chest pain with exercise; work up was negative and symptoms resolved. Optimized by cardiology, considered low cardiac risk at 12/17/24 appt AURELIANO: on CPAP PMFSH Active Problems Active Problems: All Active Problems (Updated 03/14/25 @ 10:54 by Iza Batista RN) Anemia (Acute) Medial epicondylitis of left elbow (Acute) Sacroiliac joint pain (Acute) Lumbar radiculopathy (Acute) Lumbosacral spondylosis (Acute) Impingement of right shoulder (Acute) Rotator cuff insufficiency of right shoulder (Acute) Atypical chest pain (Acute) Palpitations (Acute) Obesity (Acute) History of repair of hiatal hernia (Acute) Asthma (Acute) HTN (hypertension) (Acute) Morbid obesity (Acute) Hiatal hernia with gastroesophageal reflux (Acute) Dysphagia (Acute) Fungal skin infection (Acute) Obstructive sleep apnea treated with continuous positive airway pressure (CPAP) (Acute) Past Medical History Medical History Back pain Hx of transfusion of packed red blood cells Bipolar 1 disorder History of headache Pre-diabetes GERD (gastroesophageal reflux disease) Hiatal hernia HTN (hypertension) Vitamin deficiency Fatigue Diaphragmatic hernia Dyspareunia in female Heavy menstrual bleeding Vitamin B1 deficiency Prediabetes Obstructive sleep apnea treated with continuous positive airway pressure (CPAP) Asthma Acid reflux Umbilical hernia Family History Family History Father No problems noted. Mother Diabetes Hypertension FH: mental illness Maternal Grandmother Hypertension Maternal Uncle Cancer Leukemia Family/Other FH: mental illness Son No problems noted. Son Asthma Glaucoma Son No problems noted. Sister FH: mental illness High cholesterol Brother High cholesterol Family history of problems with anesthesia: No Surgical History Surgical History H/O colonoscopy S/P laparoscopic sleeve gastrectomy History of delivery History of endoscopy History of umbilical hernia repair (10/06/17) History of cholecystectomy History of tubal ligation History of Problems with Anesthesia: No Social History Social History Household Members: Spouse and Other Household Members Other:: mother Housing: Apartment Are you a primary rn primary care to a significant other at home: No Do you presently have visiting nurse or other home services: No Alcohol intake: never Patient Tobacco Use Status: Never used Tobacco Second Hand Smoke Exposure: No Use of substances other than those prescribed or required for medical reasons: No Have you been hit, kicked, punched, or otherwise hurt by someone within the past year? 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 Meds Allergies Allergy/AdvReac Type Severity Reaction Status Date / Time ibuprofen (From Motrin) Allergy Intermediate Rash Verified 03/18/25 12:46 naproxen (Naprosyn) Allergy Intermediate Rash Verified 03/18/25 12:46 prednisone (PREDNISONE) Allergy Intermediate RASH, Verified 03/18/25 12:46 itching aspirin (ASA) Allergy Rash Verified 03/18/25 12:46 Home Medications ?Medication ?Instructions ?Recorded ?Confirmed ?Last Taken ?Type ferrous sulfate 325 mg (65 mg 325 mg PO 2XW 03/17/24 03/18/25 1 Week Ago History iron) tablet,delayed release ~03/10/24 pantoprazole 40 mg tablet,delayed 40 mg PO BID PRN Acid Reflux 03/17/24 03/18/25 1 Week Ago History release ~03/10/24 albuterol sulfate 90 mcg/actuation 2 puff inhalation Q6H PRN yes 08/27/24 03/28/25 03/28/25 07:00 History aerosol inhaler (Ventolin HFA) docusate sodium 100 mg capsule 100 mg PO BID PRN Constipation 09/03/24 03/18/25 Unknown History lidocaine 5 % topical patch 5 patch topical DAILY PRN Pain 09/03/24 03/18/25 Unknown History amitriptyline 10 mg tablet 10 mg PO BEDTIME PRN Insomnia 11/21/24 03/18/25 Unknown History fluticasone propionate 50 2 spray intranasal DAILY PRN 11/21/24 03/18/25 Unknown History mcg/actuation nasal Allergy Symptoms spray,suspension loratadine 10 mg tablet 10 mg PO DAILY PRN Allergy Symptoms 11/21/24 03/18/25 Unknown History sumatriptan succinate 25 mg tablet 25 mg PO DAILY PRN Headache 11/21/24 03/18/25 Unknown History vitamin A palmitate 3,000 mcg 3,000 mcg PO 2XW 03/14/25 03/18/25 Unknown History (10,000 unit) capsule Exam Height,Weight and Vital Signs: Height 5 ft 4 in Weight 102.512 kg Pertinent Lab Results Pertinent Lab Results: Laboratory Tests 02/19/25 11:41 WBC 5.6 RBC 4.72 Hgb 13.6 Hct 40.1 Plt Count 334 Sodium 140 Potassium 4.2 BUN 11 Creatinine 0.52 Narrative Narrative: Exercise Stress test 12/2024 Exercise stress test with exercise 6 mins 30 secs of Steve Protocol, achieving 94% MPHR, with reports of mild SOB, no chest pain, without any arrythmias, with normotensive response to exercise. Without EKG changes meeting criteria for ischemia. In recovery, breathing quickly returned to baseline. Echo images obtained by tech at rest and post peak exercise. Definity contrast utilized. Test reviewed with Dr. Sanchez. Procedure Date: 09/13/2024 Procedure Type: Transthoracic Echocardiogram Location: OP Height: 162.56 cm Weight: 97.98 kg BSA: 2.02 m2 Heart Rate: bpm BP: 110 / 70 mmHg Tso: TO Referring MD: Masood Moreno MD Software Maintenance Engineer: Masood Moreno MD Symptoms: R00.2 - Palpitations Study Quality: Adequate ECG Rhythm: Sinus Conclusions: - Normal study EKG 08/2024 Normal sinus, rate 72 Cannot rule out anterior infarct, age undetermined Assessment and Plan Final Anesthetic Review Family History of Problems with Anesthesia: No History of Problems with Anesthesia: No Documented by User: Manda Salazar MD 03/28/25 09:40 [facility] Past Medical History Medical History Back pain Hx of transfusion of packed red blood cells Bipolar 1 disorder History of headache Pre-diabetes GERD (gastroesophageal reflux disease) Hiatal hernia HTN (hypertension) Vitamin deficiency Fatigue Diaphragmatic hernia Dyspareunia in female Heavy menstrual bleeding Vitamin B1 deficiency Prediabetes Obstructive sleep apnea treated with continuous positive airway pressure (CPAP) Asthma Acid reflux Umbilical hernia Family History Family History Father No problems noted. Mother Diabetes Hypertension FH: mental illness Maternal Grandmother Hypertension Maternal Uncle Cancer Leukemia Family/Other FH: mental illness Son No problems noted. Son Asthma Glaucoma Son No problems noted. Sister FH: mental illness High cholesterol Brother High cholesterol Surgical History Surgical History H/O colonoscopy S/P laparoscopic sleeve gastrectomy History of delivery History of endoscopy History of umbilical hernia repair (10/06/17) History of cholecystectomy History of tubal ligation Social History Social History Household Members: Spouse and Other Household Members Other:: mother Housing: Apartment Are you a primary rn primary care to a significant other at home: No Do you presently have visiting nurse or other home services: No Alcohol intake: never Patient Tobacco Use Status: Never used Tobacco Second Hand Smoke Exposure: No Use of substances other than those prescribed or required for medical reasons: No Have you been hit, kicked, punched, or otherwise hurt by someone within the past year? 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 Meds Allergies Allergy/AdvReac Type Severity Reaction Status Date / Time ibuprofen (From Motrin) Allergy Intermediate Rash Verified 03/18/25 12:46 naproxen (Naprosyn) Allergy Intermediate Rash Verified 03/18/25 12:46 prednisone (PREDNISONE) Allergy Intermediate RASH, Verified 03/18/25 12:46 itching aspirin (ASA) Allergy Rash Verified 03/18/25 12:46 Home Medications ?Medication ?Instructions ?Recorded ?Confirmed ?Last Taken ?Type ferrous sulfate 325 mg (65 mg 325 mg PO 2XW 03/17/24 03/18/25 1 Week Ago History iron) tablet,delayed release ~03/10/24 pantoprazole 40 mg tablet,delayed 40 mg PO BID PRN Acid Reflux 03/17/24 03/18/25 1 Week Ago History release ~03/10/24 albuterol sulfate 90 mcg/actuation 2 puff inhalation Q6H PRN yes 08/27/24 03/28/25 03/28/25 07:00 History aerosol inhaler (Ventolin HFA) docusate sodium 100 mg capsule 100 mg PO BID PRN Constipation 09/03/24 03/18/25 Unknown History lidocaine 5 % topical patch 5 patch topical DAILY PRN Pain 09/03/24 03/18/25 Unknown History amitriptyline 10 mg tablet 10 mg PO BEDTIME PRN Insomnia 11/21/24 03/18/25 Unknown History fluticasone propionate 50 2 spray intranasal DAILY PRN 11/21/24 03/18/25 Unknown History mcg/actuation nasal Allergy Symptoms spray,suspension loratadine 10 mg tablet 10 mg PO DAILY PRN Allergy Symptoms 11/21/24 03/18/25 Unknown History sumatriptan succinate 25 mg tablet 25 mg PO DAILY PRN Headache 11/21/24 03/18/25 Unknown History vitamin A palmitate 3,000 mcg 3,000 mcg PO 2XW 03/14/25 03/18/25 Unknown History (10,000 unit) capsule Exam Airway Mallampati Class: III TM Dist: >3cm Neck ROM: Full Heart: rrr Lungs: cta Assessment and Plan Assessment Anesthesia Assessment: Anesthesia Plan Discussed and Chart Reviewed Final Anesthetic Review NPO: Yes ASA Class: III Final Preanesthetic Review: No Changes in Pt Med Stat, Meds/Allgs Chart Reviewed, Consent Obtained/Reviewed and Anes Risks/Benef Reviewed Patient Risk: Low Procedure Risk: Intermediate Anesthetic Plan Anesthetic Plan: GA, Regional Block and Agree w/ Assess. and Plan Disposition: Standard PACU
[2025-03-28] VITALS (8 sets, daily range): BP systolic 108–124; BP diastolic 56–77; PULSE 67–91; RESP 16–21; TEMP 36.2–36.8; O2SAT 94–99
[2025-03-28] MEDS: Lactated Ringers 1,000 ML 100 ML IVCONT (08:50)
--- NOTE | 2025-03-28 12:33 | PM.OP ---
Brief Operative Note Date of Service: 03/28/25 Pre-op diagnosis: Right shoulder impingement syndrome, right shoulder acromioclavicular joint arthritis, right shoulder adhesive capsulitis Post-op diagnosis: same Procedure: Right shoulder arthroscopic distal clavicle excision, right shoulder arthroscopic acromioplasty, right shoulder arthroscopic anterior capsular release, right shoulder manipulation under anesthesia Implants: none Surgeon: Best Sierra MD Anesthesia: GETA and regional Was an Training Developer used for this Procedure?: No Estimated blood loss (mL): 10 Pathology: none sent Condition: stable Disposition: PACU
--- NOTE | 2025-03-28 12:34 | P.OP_ITS ---
Operative Note Operative Note Date of Service: 03/28/25 Narrative: After the patient was identified as Traci Ortega and her right shoulder was initialed by myself the patient was brought to the holding area where a right shoulder interscalene regional block was performed by the anesthesiologist in routine fashion. The patient was then brought to the operating room where general anesthesia was induced by the anesthesiologist in routine fashion. The patient was given 2 g of IV Ancef preoperatively for infection prophylaxis. Examination under anesthesia of the patient's right shoulder showed decreased passive range of motion when compared to the left shoulder. The patient's right shoulder had passive forward flexion to 140 degrees compared to 170 degrees, external rotation to 40 degrees compared to 70 degrees, and internal rotation to 50 degrees compared to 60 degrees. The patient was gently positioned in the beach chair position with all bony prominences well padded. The patient's right shoulder region and upper extremity were prepped and draped in sterile fashion. A formal time-out was completed. A #11 scalpel blade was used to make a posterior portal 2 cm inferior and 1 cm medial to the posterolateral corner of the acromion. Blunt trocar technique was used to enter the glenohumeral joint in routine fashion. An anterior portal was made just lateral to the coracoid process after proper positioning was confirmed using a spinal needle. Diagnostic arthroscopy showed minimal degenerative changes of the glenoid and humeral head articular surfaces. There was no evidence of rotator cuff tearing. There was no evidence of injury to the biceps tendon or its insertion onto the glenoid. There was inflammation of the anterior joint capsule consistent with adhesive capsulitis. The ArthroCare Wand was then used to perform an anterior capsular release between the inferior border of the biceps tendon and the superior border of the subscapularis tendon. The arthroscope was then placed from the posterior portal into the subacromial space. A lateral portal was made 2 fingerbreadths lateral to the anterior lateral corner of the acromion. The ArthroCare Wand was used to ablate soft tissues along the undersurface of the acromion as well as to excise the coracoacromial ligament. There was a sharp spur along the undersurface of the acromion which was removed using the hooded bur. The arthroscope was then placed into the lateral portal and the acr omioplasty was completed with the bur in the posterior portal using the posterior aspect of the acromion as a cutting block. The ArthroCare Wand was then brought in through the anterior portal and was used to ablate soft tissues along the acromioclavicular joint and distal clavicle. The posterior and superior ligamentous structures were left intact. A distal clavicle excision of 8 mm was performed using the fluted bur. Any remaining bursal tissue was removed using the arthroscopic shaver. The subacromial space was irrigated and then drained. All arthroscopic instruments were removed. A gentle manipulation under anesthesia was then performed. Full passive range of motion was easily attained. The 3 portals were closed with 3-0 nylon interrupted suture. The subacromial space was injected with Marcaine. Dry sterile dressing was placed over all incisions. The patient's right upper extremity was placed into a sling. The patient was awoken and extubated in the operating room. The patient was transferred to the recovery room in stable condition.
== END 2025-03-28 14:26 | disposition home or self-care (01) ==
PROVIDERS: PCP Internal Medicine Geriatric Medicine; Visit Provider Orthopaedic Surgery
PROC: (CPT 29805; principal; 2025-03-28 10:30)
DX: M75.41 Impingement syndrome of right shoulder (principal); M75.01 Adhesive capsulitis of right shoulder; M19.011 Primary osteoarthritis, right shoulder; M25.511 Pain in right shoulder; M25.611 Stiffness of right shoulder, not elsewhere classified; I10 Essential (primary) hypertension; K21.9 Gastro-esophageal reflux disease without esophagitis; R73.03 Prediabetes; E55.9 Vitamin D deficiency, unspecified; E51.9 Thiamine deficiency, unspecified; J45.909 Unspecified asthma, uncomplicated; G47.33 Obstructive sleep apnea (adult) (pediatric); Z79.899 Other long term (current) drug therapy; Z99.89 Dependence on other enabling machines and devices; Z88.6 Allergy status to analgesic agent; Z88.8 Allergy status to other drugs, medicaments and biological substances
CPT/HCPCS: 29824; 29825; 29826; J0131; J0165; J0665; J0690; J0696; J1100; J2003; J2250; J2405; J2704; J2795; J3010

== ENCOUNTER → 2025-03-28 08:10 | Outpatient (BNV) | payer MEDICAID, SELFPAY | PROVIDERS: PCP Internal Medicine Geriatric Medicine; Visit Provider Orthopaedic Surgery | DX: M75.41 Impingement syndrome of right shoulder (principal); M19.011 Primary osteoarthritis, right shoulder; M75.01 Adhesive capsulitis of right shoulder | CPT/HCPCS: 29824; 29826 ==

== ENCOUNTER 2025-04-10 13:31 | Outpatient (AMB) | payer MEDICAID, SELFPAY ==
--- OUTSIDE RECORDS SUMMARY | 2024-08-07 10:00 | XMS_ITS ---
Author Organization [facility] Address [address] [place] [address] Care Team Providers Care Pickling Machine Operator Name Role Phone Name Morales RAMSEY Primary Care Provider Jamarcus Tubbs [phone] REASON FOR VISIT Patient presents today for HEMMORHAGE Encounters Encounter Location Date Provider Diagnosis [facility] [address] [place] [phone] 08/07/2024 Jamarcus Banda Plan Of Treatment No Information Progress Notes * CHUCHO HOLTDOB:1975 (49 yo F)Acc No.[id number]:08/07/2024 Progress Notes Patient: CHUCHO WILSON Provider: Kenney Banda MD :1975 A ge:49 Y S ex:Female Date:08/07/2024 Address:[address] [place] [address], [facility] Pcp:Morales Ly MD Subjective: * Chief Complaints: * 1 . Patient presents today for HEMMORHAGE. * Medical History: Objective: * Vitals: Assessment: Plan: * Treatment: * * The named appointment provid er may or may not be the originator of this progress note, and it is not deemed complete until electronically signed by the appointment provider. Sign off status: Pending * Provider: Kenney Banda MD Date: 0 08/07/2024 Generated for Kalpana marx/Cadence/eTransmitting on: 03:01 PM EDT
--- NOTE | 2025-04-10 13:34 | MHC.OFFVIS ---
Vital Signs 04/10/25 13:40 Height 5 ft 4 in Weight 229 lb BMI 39.3 Handedness Right Intake Visit Reasons: PO RT shoulder 03/28/25 DR Intake Note: Traci is a 49 year old woman who presents with complaints of mild to moderate discomfort in her right shoulder after undergoing right shoulder arthroscopic surgery on 03/28/2025. She continues with her physical therapy. She does take oxycodone as needed for her discomfort. She denies any fevers or chills. Optoelectronics Engineer Required: Yes Optoelectronics Engineer Language: Clinical Dietetic Technician Services: Optoelectronics Engineer Offered & Declined (patient wants daughter to translate) Allergies ibuprofen (From Motrin) Allergy (Intermediate, Verified 04/10/25 13:40) Rash naproxen (Naprosyn) Allergy (Intermediate, Verified 04/10/25 13:40) Rash prednisone (PREDNISONE) Allergy (Intermediate, Verified 04/10/25 13:40) RASH, itching aspirin (ASA) Allergy (Verified 04/10/25 13:40) Rash Medication List - Last Reconciled 04/10/25 by Best Sierra MD acetaminophen (Tylenol Extra Strength) 1,000 mg (2 x 500 mg) PO Q8H PRN albuterol sulfate 90 mcg/actuation (Ventolin HFA) 2 puffs inhalation Q6H PRN MDD wheezing amitriptyline 10 mg PO BEDTIME PRN calcium citrate-vitamin D3 315 mg-5 mcg (200 unit) (Calcium Citrate + D) 1 tab PO DAILY docusate sodium 100 mg PO BID PRN ferrous sulfate 325 mg PO 2XW fluticasone propionate 50 mcg/actuation 2 sprays intranasal DAILY PRN lidocaine 5% 5 patches topical DAILY PRN loratadine 10 mg PO DAILY PRN oxycodone 10 mg (2 x 5 mg) PO Q4H PRN pantoprazole 40 mg PO BID PRN sumatriptan succinate 25 mg PO DAILY PRN tramadol 50 mg PO Q8H PRN 10 days vitamin A palmitate 3,000 mcg PO 2XW PFSH Medical History (Updated 04/10/25 @ 14:00 by Best Sierra MD) Back pain Hx of transfusion of packed red blood cells Bipolar 1 disorder History of headache Pre-diabetes GERD (gastroesophageal reflux disease) Hiatal hernia HTN (hypertension) Vitamin deficiency Fatigue Diaphragmatic hernia Dyspareunia in female Heavy menstrual bleeding Vitamin B1 deficiency Prediabetes Obstructive sleep apnea treated with continuous positive airway pressure (CPAP) Asthma Acid reflux Umbilical hernia Surgical History (Updated 04/10/25 @ 13:41 by OLIVERIO Carrillo) H/O arthroscopy of shoulder (~03/28/25) H/O colonoscopy S/P laparoscopic sleeve gastrectomy History of delivery History of endoscopy History of umbilical hernia repair (10/06/17) History of cholecystectomy History of tubal ligation Family History Father No problems noted. Mother Diabetes Hypertension FH: mental illness Maternal Grandmother Hypertension Maternal Uncle Cancer Leukemia Family/Other FH: mental illness Son No problems noted. Son Asthma Glaucoma Son No problems noted. 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 Her sutures were removed and Steri-Strips placed over her incisions. She will continue with her physical therapy exercises. The do's and don'ts of lifting were discussed at length with the patient. I did refill her prescription for oxycodone. She will contact me prior to her follow-up appointment in 2-3 months should any questions or concerns arise. Feel free to call me at any time should questions regarding her orthopedic management arise. Medications: Changed From oxycodone Partial Fill upon patient request. Take 1-2 tabs every 4 hours as needed for pain following your right shoulder surgery. 10 mg (2 x 5 mg) PO Q4H PRN 40 tabs 0RF pain To oxycodone Partial Fill upon patient request. 5 mg PO Q8H PRN 30 tabs 0RF pain Coding Level of Care Code Global (69806) Diagnoses Right shoulder pain M25.511
[2025-04-10 13:40] VITALS: BMI 39.3
--- OUTSIDE RECORDS SUMMARY | 2025-04-10 15:01 | XMS_ITS | Clinical Summary ---
Author Organization [facility] [address] Address [address] [place] [phone] Phone Care Team Providers Care Bobtail Driver Name Role Phone Unavailable Primary Care Provider [...] screening 1995 Colon cancer screening, Colonoscopy 2019 Breast cancer screening 10/11/2024 10/11/2022, 10/11 Influenza vaccine 02/07/2025 04/10/2024, , 06/14/2022, Additional history exists Covid-19 vaccine series ( season) 2025 06/14/2022, 11/10/2021, 12/26/2020, Additional history exists Diabetes screening 01/28/2027 01/29/2024 Lipid disorder screening 01/28/2029 01/29/2024 Tetanus adult (Td q 10,TDAP once) 02/19/2029 02/19/2019 RSV Immunization (1 - 1-dose 75+ series) 2049 HIV screening Completed 01/29/2024 Hepatitis C screening Completed 01/29/2024 Pneumococcal Vaccine (2 - 49 years) Discontinued 11/04/2024, 08/01/2016 Pneumococcal Vaccine (50+ years) Completed 11/04/2024, 08/01/2016 Shingles vaccine (Shingrix) Completed 11/04/2024, 0 08/20/2024 Meningococcal B Vaccine Aged Out No l [...] w/reflexes (Q) (01/29/2024 10:55 AM EDT) Pathologist [facility] [place] HIV Ag/Ab, 4th Generation NON-REACT KIERAN NON-REACT [...] purpose. For additional information please refer to http://education.[employer].Molcure/faq/BXH565 (This link is being provided for informational/ educational purposes only.) The performance of this assay has not been clinically validated in patients less than 2 years old. Blood 01/29/2024 10:5 5 AM EDT 01/29/2024 10:56 AM EDT Narrative Resulting Agency Comment Performing Lab: Site ID: [id number] Name: [facility] Address: [address] [place] [phone] Director: Guilherme Quinteros M.D. Rachael JANE LAB BLOOD ORDERABLES F inal Result Performing Organization Address City/State/[facility] de Phone Number [facility] [address] [place] [address] * Hepatitis C Ab with reflex to HCV PCR (01/29/2024 10:55 AM EDT) Pathologist [facility] [place] Hepatitis C Ab NON-REACT KIERAN NON-REACT KIERAN [facility] Comment: HCV antibody was non-reactive. There is no laboratory evidence of HCV infection. In most cases, no further action is required. However, if recent HCV exposure is suspected, a test for HCV RNA (test code 81340) is suggested. For additional information please refer to http://[employer] S[employer]ame.[employer] Entertainment/faq/WSN97i3 (This link is being provided for informational/ educational purposes only.) 01/29/2024 10:5 5 AM EDT 01/29/2024 10:56 AM EDT Narrative Resulting Agency Comment Performing Lab: Site ID: [id number] Name: [facility] Address: [address] [place] [phone] Director: Guilherme Quinteros M.D. Rachael JANE LAB BLOOD ORDERABLES F inal Result Performing Organization Address [facility] de Phone Number [facility] [address] [place] [address] * (ABNORMAL) Lipid panel with reflex to [...] LDL-C. Misael ANNE et al. BELLA. 2013;310(19): 2606-2924 (http://education.SugarCRM/faq/FEG581) Chol/HDL Ratio 3.6 <5.0 (calc) [facility] Non-HDL Cholesterol 146(H) <130 mg/dL (calc) [facility] Comment: For patients with diabetes plus 1 major ASCVD risk factor, treating to a non-HDL-C goal of <100 mg/dL (LDL-C of <70 mg/dL) is considered a therapeutic option. 01/29/2024 10:5 1 AM EDT 01/29/2024 10:52 AM EDT Narrative Resulting Agency Comment Performing Lab: Site ID: [id number] Name: [facility] Address: [address] [place] [phone] Director: Guilherme Quinteros M.D. Rachael JANE LAB BLOOD ORDERABLES F inal Result [facility] [address] [place] [address] * (ABNORMAL) Comprehensive metabolic panel (01/29/2024 10:51 [...] Comment Performing Lab: Site ID: [id number] Name: [facility] Address: [address] [place] [phone] Director: Guilherme Quinteros M.D. us Rachael JANE LAB BLOOD ORDERABLES F inal Result [facility] [address] [place] [address] from Last 3 Months or Most Recently Relevant to Health Maintenance [place]
--- OUTSIDE RECORDS SUMMARY | 2025-04-10 15:01 | XMS_ITS | Clinical Summary ---
Author Organization [facility] Address [address] [place] [address] Care Team Providers Care Security Administrator Name Role Phone Unavailable Primary Care Provider [...] (Ages 21-65) 1995 Mammogram 2014 Colonoscopy 2019 Pneumococcal Vaccines 50+ (1 of 1 - PCV) 2024 Zoster (Shingles) Vaccine (1 of 2) 2024 Influenza Vaccine 02/07/2025 COVID-19 Vaccine ( season) 2025, 12/05/2020 [place] [facility] [place]
--- OUTSIDE RECORDS SUMMARY | 2025-04-10 15:01 | XMS_ITS | Clinical Summary ---
Author Organization [employer] Address [address] [place] [address] [address] [place] [address] Care Team Providers Care Tape Editor Name Role Phone Name, Morales RAMSEY Primary Care Provider [phone] Allergies Active Allergy Reactions Criticality Noted Date Comments Dexamethasone Itching Low 01/19/2021 Ibuprofen Rash Low 06/14/2022 Medications * This document contains information received from the source organization and may not represent a complete record from that organization. White Petrolatum-Silver Firs al Oil (Wh Petrol-Mineral Oil-Lanolin) 0.1-0.1 % ointment 2 Active glucose blood (FREESTYLE LITE) test strip Use to test blood sugar twice daily 2 Active thiamine (Vitamin B-1) 100 MG tablet Take 1 tablet by mouth at bed time. Active TRUEplus Lancets 33G misc Use to test blood sugar twice daily 2 Active Spacer/Aero-Hold ing Chambers (OptiChamber Tasha) miscIndications: Influenza A 1 each every 4 (four) hours if needed (asthma). 1 each 2 Active diphenhydrAMINE (BENADryl) 25 MG capsuleIndicatio ns:Influenza A Take 2 capsules (50 mg) by mouth every 6 (six) hours if needed for itching. May take 1-2 capsules prn rashor itching 40 capsule 2 Active cyclobenzaprine (Flexeril) 10 MG tabletIndication s:Chronic low back pain, unspecified back pain laterality, unspecified whether sciatica present Take 1 tablet (10 mg) by mouth 3 times daily for 20 days. 60 tablet 3 3 Active Calcium Citrate-Vitamin D 315-5 MG-MCG tablet Take 1 tablet by mouth Once per day. 3 Active albuterol (Ventolin HFA) 108 (90 [...] 25 Active FeroSul 325 (65 Fe) MG tabletIndication s:Dysmenorrhea TAKE 1 TABLET BY MOUTH EVERY DAY WITH ORANGE JUICE 90 tablet 3 4 Active docusate sodium (Colace) 100 MG capsule TAKE 1 CAPSULE BY MOUTH TWICE DAILY 180 capsule 2 4 Active Blood Pressure kit 1 each 2 times daily. 1 kit 5 09/25/19 26 Active amitriptyline (Elavil) 10 MG tablet Take 1 tablet (10 mg) by mouth at bedtime. 30 tablet 2 5 Active loratadine (Claritin) 10 MG tablet Take 1 tablet (10 mg) by mouth Once per day. 30 tablet 11 5 11/05/19 26 Active fluticasone (Flonase) 50 MCG/ACT nasal spray Administer 2 sprays into each nostril Once per day. Shake gently. Before first use, prime pump. After use, clean tip and replace cap. 16 g 2 5 11/05/19 26 Active SUMAtriptan (Imitrex) 25 MG tablet TAKE 1 TABLET BY MOUTH AT ONSET OF MIGRAINE. MAY REPEAT ONCE AFTER 2 HOURS IF NEEDED, DO NOT EXCEED 2 TABLETS / 24 HOURS 9 tablet 2 5 Active Tirzepatide-Weig ht Management (Zepbound) 2.5 MG/0.5ML solution auto-injector Inject 0.5 mL (2.5 mg) under the skin 1 (one) time per week. 2 mL 5 03/21/20 25 Active Problems Problem Noted Date Diagnosed Date Seasonal allergies 11/04/2024 Moderate depressive disorder 05/27/2024 DIGNA (generalized anxiety disorder) 05/27/2024 Assessment & Plan (05/27/2024 8:08 AM [...] intervention , Patient to reach out to [facility] team as needed, Patient to engage in OP therapy , and Patient to reach out to HC as needed S/P laparoscopic sleeve gastrectomy 08/12/2022 Overview (08/12/2022): Dr. Ortiz, [facility], 07/2022 Chronic low back pain 06/18/2022 Dysmenorrhea 06/18/2022 Esophageal dysphagia 06/18/2022 Hypertensive disorder 06/18/2022 Lower esophageal ring 06/18/2022 Morbid obesity (CMS/HCC) 06/18/2022 Pain in pelvis 06/18/2022 Umbilical hernia 06/18/2022 Prediabetes 08/23/2021 Encounters * This document contains information received from the source organization and may not represent a complete record from that organization. Date Type Department Care Team Description 03/26/2025 Telephone [facility] [place] [address] Morales Ly MD Prior Authorization 03/26/2025 Travel 03/25/[address] [address] Morales Ly MD Durable Medical Equipment 03/06/[address] [address] Morales Ly MD Med Refill (Tc from pt stating pharmacy advised a PA is needed for Tirzepatide-Weight Management (Zepbound) , pt stated she went to pharmacy and theres no medication ///) 02/27/[address] [address] Morales Ly MD Prior Authorization 02/21/2025 Results Follow-Up [address] [address] Morales Ly MD HIV-1/2 Antigen and Antibodies, Fourth Generation, with Reflexes, Hepatitis C Antibody with Reflex to HCV, RNA, Quantitative, Real-Time PCR, Hepatitis B surface antigen, EIA, Additional followed-up results: 2 02/19/2025 10:45 AM EDT Office Visit [address] [address] Morales Ly MD Class 2 obesity due to excess calories with body mass index (BMI) of 38.0 to 38.9 in adult, unspecified whether serious comorbidity present (Primary Dx); Weight gain; S/P laparoscopic sleeve gastrectomy; Screening examination for STI; Healthcare maintenance 02/19/2025 Orders Only GENERIC EXTERNAL DATA DEPARTMENT Provider, Generic External Data 02/19/2025 Travel 01/15/2025 Patient Outreach [facility] [address] [place], [place] [phone] Morales Ly MD Care Coordination (C3/CML) 01/15/2025 Patient Outreach [facility] [address] [place] [address] Name, MD Morales 01/13/2025 Patient Outreach [facility] [address] [place] [address] Name, MD Morales from Last 3 Months Immunizations Immunization Administration [...] Answer Date Recorded Patient Health Questionnaire-9 Score 20 04/03/2025 Patient Health Questionnaire-9 Score 20 04/03/2025 Last PHQ-9: Questionnaire Data Not on file 0 04/03/2025 Housing Stability Answer Date Recorded What is [...] Answer Date Recorded Patient Health Questionnaire-2 Score 4 04/03/2025 Internet Access Answer Date Recorded Internet Access [...] Sign Reading Time Taken Comments Blood Pressure 118/82 02/19/2025 10:29 AM EDT Pulse 74 02/19/2025 10:29 AM EDT Temperature 36.1 C (96.9 F) 02/19/2025 10:29 AM EDT Respiratory Rate 12 02/19/2025 10:29 AM EDT Oxygen Saturation 97% 02/19/2025 10:29 AM EDT Inhaled Oxygen Concentration - - Weight 103 kg (226 lb 9.6 oz) 02/19/2025 10:29 A M EDT Height 162.6 cm (5' 4 ) 02/19/2025 10:29 AM EDT Body Mass Index 38.9 02/19/2025 10:29 AM EDT Plan of Treatment Upcoming Encounters Date Type Department Care Team (Late st Contact Info) Description 05/06/2025 9:30 AM EDT Office Visit [facility] [address] [place] [address] Name, MD Morales [address] [place] [address] 05/15/2025 1:00 PM EST Nutrition [facility] DIABETES/NTRN [address] [place] [address] [place], [place] [phone] 06/13/2025 11:30 AM EST Office Visit [facility] [address], [place] [phone] Tasha Jasso MD [address] [place], [place] [phone] Health Maintenance Due Date Last Done Comments CT Colonography 1974 Dental Oral Exam 1974 Dental Prophylaxis 1974 Dental X-Ray: Bitewings 1974 Dental X-Ray: Full Mouth 1974 FIT DNA/Cologuard 1974 FIT 1974 FOBT 1974 Sigmoidoscopy 1974 Family Planning (PISQ) 1989 Hepatitis B Vaccines (1 of 3 - 19+ 3-dose series) 1993 COVID-19 Vaccine ( season) 2025 06/14/2022, 11/10/2021, 12/26/2020, Additional history exists Influenza Vaccine (#1) 2025 , 03/17/2023, 06/14/2022, Additional history exists Diabetes: Hemoglobin A1C 04/26/2025 024, 03/15/2023, 07/13/2022, Additional history exists Depression Monitoring 10/01/2025 04/03/2025, 025 SDOH Screening 10/24/2025 10/24/2024 Alcohol/Substance Use Screening 11/04/2025 11/04/2024 Disability Screening 02/19/2026 02/19/2025 Tobacco Screening 02/19/2026 02/19/2025 Cervical Cancer Screening 07/12/2026 HPV/Cotest 07/12/2026 07/12/2021 Pap Smear 07/12/2026 07/12/2021 Mammogram 02/28/2027 02/28/2025, 10/11/2022 DTaP/Tdap/Td Vaccines (2 - Td or Tdap) 02/19/2029 02/19/2019 Lipid Panel 04/26/2029 04/26/2024, 09/0 12/2022, 06/21/2021 Colonoscopy 03/18/2034 03/18/2024 Colorectal Cancer Screening 03/18/2034 RSV Patients and Patients Aged 60 years or older (1 - 1-dose 75+ series) 2049 Pneumococcal Vaccine: 50+ Years Completed 11/04/2024, 08/01/2016 Zoster Vaccines Completed 11/04/2024, 08/20/2024 HIV Screening Completed 02/19/2025 Hepatitis C Screening Completed 02/19/2025 HIB Vaccines Aged Out No longer eligi [...] Procedure Name Priority Date/Time Associated Diagnosis Comments AMB REFERRAL TO OPHTHALMOLOGY Routine 03/24/2025 Healthcare maintenance BI MAMMOGRAM SCREENING TOMOSYNTHESIS BILATERAL Routine 02/28/2025 12:10 PM EDT Screening examination for STI FERRITIN Routine 02/19/2025 11:41 AM EDT IRON AND TOTAL IRON BINDING CAPACITY Routine 02/19/2025 11:41 AM EDT COMPREHENSIVE METABOLIC PANEL Routine 02/19/2025 11:41 AM EDT CBC WITH AUTO DIFFERENTIAL Routine 02/19/2025 11:41 AM EDT RPR (MONITOR) W/REFL TITER Routine 02/19/2025 11:41 AM EDT Screening examination for STI HEPATITIS B SURFACE ANTIBODY, QUALITATIVE Routine 02/19/2025 11:41 AM EDT Screening examination for STI HEPATITIS B SURFACE ANTIGEN, EIA Routine 02/19/2025 11:41 AM EDT Screening examination for STI HEPATITIS C AB W/REFL TO HCV RNA, QN, PCR Routine 02/19/2025 11:41 AM EDT Screening examination for STI HIV 1/2 ANTIGEN/ANTIBODY, FOURTH GENERATION W/RFL Routine 02/19/2025 11:41 AM EDT Screening examination for STI HEMOGLOBIN A1C Routine 04/26/2024 8:28 AM EDT LIPID PANEL, STANDARD Routine 04/26/2024 8:28 AM EDT HM COLONOSCOPY Routine 03/18/2024 THINPREP IMAGING PAP AND HPV MRNA E6/E7 WITH REFLEX TO HPV 16,18/45 Routine 07/12/2021 10:33 AM EST from Last 3 Months or Most Recently Relevant to Health Maintenance Results * Referral to Ophthalmology (03/24/2025) Morales Ly MD OUTPATIENT REFERRAL ORDERABLES F inal Result * BI Mammogram Screening Tomosynthesis Bilateral (02/28/2025 12:10 PM EDT) Anatomical Region Laterality Modality Breast Bilateral Mammography 02/28/2025 12:1 0 PM EDT Narrative 03/04/2025 12:57 PM EDT [facility] [address] [place], [place] [address] Mammography Report Signed Patient: Traci Dahl MR#: [id number] : 1975 Acct:[id number] Age/Sex: 49 / F ADM Date: 02/28/25 Loc: MAMMO Attending Dr: Morales Ly MD Ordering Physician: Morales Ly MD Results: 1Negative Date of Service: 02/28/25 Follow Up: 1 Year From Orig ina Mammogram Procedure(s): MM tomosynthesis screening BI Accession Number(s): [id number] cc: Morales Ly MD EXAMINATION: MM SCREENING DIGITAL BREAST TOMOSYNTHESIS, BILATERAL CLINICAL INFORMATION: Screening. Asymptomatic. COMPARISON: Mammography: Comparison is made with available priors TECHNIQUE: Digital breast mammography with tomosynthesis is performed in both the craniocaudal and mediolateral oblique views along with computer-aided detection (CAD). FINDINGS: There are scattered areas of fibroglandular density (ACR BI-RADS breast composition Category b). There are no significant masses, abnormal calcifications, or other abnormalities. MM/MM tomosynthesis screening BI IMPRESSION: No mammographic evidence of malignancy. ASSESSMENT: BI-RADS BI-RADS 1 - Negative RECOMMENDATION: Routine annual mammography screening. 1 year F/U This examination should not preclude the clinical evaluation of a suspicious palpable abnormality. This patient's information was entered into a reminder system with a target due date for their next mammogram. Electronically signed by: Isabella Cullen DO 03/04/2025 12:54 PM EDT Dictated By: Isabella Cullen DO Signed By: <Electronically signed by Isabella Cullen DO in OV> 03/04/25 1254 DD/ 1210 TD/TT: 02/28/[address] Maintenance Crew Worker: Procedure Note Donotuseinterpreter, Image - 03/04/20[facility] [address] [place] [address] Mammography Report Signed Patient: Traci DahlMR#: [id number] : 1975Acct:[id number] Age/Sex: 49 / FADM Date: 02/28/25 Loc: MAMMO Attending Dr: Morales Ly MD Ordering Physician: Name,Morales MDResults: 1Negative Date of Service: 02/28/25Follow Up: 1 Year From Orig inal Mammogram Procedure(s): MM tomosynthesis screening BI Accession Number(s): [id number] cc: Morales Ly MD EXAMINATION: MM SCREENING DIGITAL BREAST TOMOSYNTHESIS, BILATERAL CLINICAL INFORMATION: Screening. Asymptomatic. COMPARISON: Mammography: Comparison is made with available priors TECHNIQUE: Digital breast mammography with tomosynthesis is performed in both the craniocaudal and mediolateral oblique views along with computer-aided detection (CAD). FINDINGS: There are scattered areas of fibroglandular density (ACR BI-RADS breast composition Category b). There are no significant masses, abnormal calcifications, or other abnormalities. MM/MM tomosynthesis screening BI IMPRESSION: No mammographic evidence of malignancy. ASSESSMENT: BI-RADS BI-RADS 1 - Negative RECOMMENDATION: Routine annual mammography screening. 1 year F/U This examination should not preclude the clinical evaluation of a suspicious palpable abnormality. This patient's information was entered into a reminder system with a target due date for their next mammogram. Electronically signed by: Isabella Cullen DO 03/04/2025 12:54 PM EDT RP Dictated By: Isabella Cullen DO Signed By: <Electronically signed by Isabella Cullen DO in OV> 03/04/25 1254 DD/ 1210 TD/TT: 02/28/[address] Crew Worker: Morales Ly MD IM BI PROCEDURES Final Result * (ABNORMAL) CBC auto differential (02/19/2025 11:41 AM EDT) White Blood Count 5.6 4.8 - 10.8 X10*3/uL [facility] Red Blood Count 4.72 4.20 - 5.50 X10*6/uL [facility] Hemoglobin 13.6 12.0 - 16.0 g/dl [facility] Hematocrit 40.1 37.0 - 47.0 % [facility] Mean Corpuscular Volume 85.0 80.0 - 98.0 fL [facility] Mean Corpuscular Hemoglobin 28.8 27.0 - 33.0 pg [facility] Mean Corpuscular HGB Conc 33.9 31.0 - 35.0 g/dl [facility] Red Cell Distribution Width 12.7 11.0 - 16.0 % [facility] Platelet Count 334 160 - 400 X10*3/uL [facility] Mean Platelet Volume 8.7(L) 9.4 - 12.3 fL [facility] Neutrophils Percent Auto 56.2 45 - 73 % [facility] Imm Gran Pct Auto 0.2 0.0 - 0.4 % [facility] Lymphocytes Percent Auto 32.8 20 - 40 % [facility] Monocytes Percent Auto 7.9 2 - 11 % [facility] Eosinophils Percent Auto 2.0 0 - 4 % [facility] Basophils Percent Auto 0.9 0 - 2 % [facility] NRBC Pct Auto 0.0 0.0 - 0.2 /100WBC [facility] Neutrophils Absolute Auto 3.1 2.0 - 8.3 x10*3/uL [facility] Imm Gran Abs Auto 0.01 0.00 - 0.03 X10*3/uL [facility] Lymphocytes Absolute Auto 1.8 1.2 - 4.9 X10*3/uL [facility] Monocytes Absolute Auto 0.4 0.1 - 1.2 X10*3/uL [facility] Eosinophils Absolute Auto 0.1 0.0 - 0.4 X10*3/uL [facility] Basophils Absolute Auto 0.1 0.0 - 0.2 X10*3/uL [facility] NRBC Abs Auto 0.000 0.0 - 0.012 X10*3/uL [facility] 02/19/2025 11:4 1 AM EDT 02/19/2025 11:41 AM EDT us Generic External Data Provider LAB BLOOD ORDERAB LES Final Result [facility] [address] [place] [address] [phone] * Hepatitis C Antibody with Reflex to HCV, RNA, Quantitative, Real-Time PCR (02/19/2025 11:41 AM EDT) Pathologist [facility] Hepatitis C Antibody Nonreactive Nonreactive [facility] Comment:Antibodies to HCV no t detected; does not exclude early acuteHCV infection. Blood Venous blood specimen / Unknown 02/19/2025 11:41 AM EDT 02/19/2025 11:41 AM EDT us Morales Ly MD LAB BLOOD ORDERABLES Final Resul t Performing Organization Address [facility] de Phone Number [facility] [address] [place] [phone] * Iron And Total Iron Binding Capacity (02/19/2025 11:41 AM EDT) [facility] Iron 55 30 - 160 mcg/dL [facility] Total Iron Binding Capacity 307 228 - 428 mcg/dL [facility] Percent Iron Saturation 18 15 - 50 % [facility] Unsaturated Iron Binding 252 ug/dL [facility] 02/19/2025 11:4 1 AM EDT 02/19/2025 11:41 AM EDT Generic External Data Provider LAB BLOOD ORDERAB LES Final Result Performing Organization Address [facility] de Phone Number [facility] [address] [place] [phone] * Hepatitis B surface antigen, EIA (02/19/2025 11:41 AM EDT) Pathologist [facility] Hepatitis B Surface Ag Negative Negative [facility] Blood Venous blood specimen / Unknown 02/19/2025 11:41 AM EDT 02/19/2025 11:41 AM EDT us Morales Ly MD LAB BLOOD ORDERABLES Final Resul t Performing Organization Address [facility]/ZIP Co de Phone Number [facility] [address] [place] [address] [phone] * RPR (Monitor) with Reflex to??Titer (02/19/2025 11:41 AM EDT) RPR (Monitor) w/Refl Titer NON-REACTI VE NON-REACT KIERAN [facility] Comment:THIS TEST WAS PERFOR MED AT:[employer] [place] [id number] MORELOS MD Rapid Plasma Reagin Ab Titer TNP [facility] Blood Venous blood specimen / Unknown 02/19/2025 11:41 AM EDT 02/19/2025 11:41 AM EDT us Morales Ly MD LAB BLOOD ORDERABLES Final Resul t Performing Organization Address [facility] Co de Phone Number [facility] [address] [place] [address] [phone] * HIV-1/2 Antigen and Antibodies, Fourth Generation, with Reflexes (02/19/2025 11:41 AM EDT) HIV AB/AG Nonreactive Nonreactive [facility] Comment:HIV-1 p24 Ag and/or HIV-1/HIV-2 Ab not detected.A test result that is nonreactive does not exclude thepossibility of exposure to or infection with HIV-1 and/orHIV-2. Nonreactive results in this assay for individualswith prior exposure to HIV-1 and/or HIV-2 may be due toantigen and antibody levels that are below the limit ofdetection of this assay.[employer] HIV Ag/Ab Combo assay result andsupplemental assay results should be interpreted inconjunction with the patient's clinical presentation,history and other laboratory results. If the results areinconsistent with clinical evidence, additional testing issuggested to confirm the result. Blood Venous blood specimen / Unknown 02/19/2025 11:41 AM EDT 02/19/2025 11:41 AM EDT Morales Ly MD LAB BLOOD ORDERABLES Final Resul t Performing Organization Address [facility] de Phone Number [facility] [address] [place] [phone] * Hepatitis B Surface Antibody, Qualitative (02/19/2025 11:41 AM EDT) Pathologist [facility] ~Hepatitis B Surface Antibody REACTIVE Nonreactive [facility] Comment:REACTIVE: > 11.99 mI U/mL Blood Venous blood specimen / Unknown 02/19/2025 11:41 AM EDT 02/19/2025 11:41 AM EDT Morales Ly MD LAB BLOOD ORDERABLES Final Resul t Performing Organization Address [facility] de Phone Number [facility] [address] [place] [phone] * Ferritin (02/19/2025 11:41 AM EDT) Pathologist [facility] Ferritin 13 10 - 250 ng/mL [facility] 02/19/2025 11:4 1 AM EDT 02/19/2025 11:41 AM EDT Generic External Data Provider LAB BLOOD ORDERAB LES Final Result Performing Organization Address [facility] de Phone Number [facility] [address] [place] [phone] * (ABNORMAL) Comprehensive Metabolic Panel (02/19/2025 11:41 AM EDT) Pathologist [facility] Sodium 140 135 - 145 mmol/L [facility] Potassium 4.2 3.3 - 5.1 mmol/L [facility] Chloride 105 96 - 108 mmol/L [facility] Carbon Dioxide 28 22 - 29 mmol/L [facility] Anion Gap 11(L) 12 - 20 [facility] Urea Nitrogen (BUN) 11 9 - 16 mg/dL [facility] Creatinine, Serum 0.52 0.5 - 1.4 mg/dL [facility] Estimated Glomerular Filt Rate >60 [facility] Comment:Chronic Kidney Disea se: Estimated GFR < 60 mL/min/1.38x9Qcdoms Kidney Disease: Estimated GFR < 15 mL/min/1.73m2 Glucose 92 60 - 115 mg/dL [facility] Calcium 9.2 8.4 - 10.2 mg/dL [facility] Bilirubin, Total 0.4 0.0 - 1.0 mg/dL [facility] Aspartate Amino Transferase 21 5 - 31 U/L [facility] Alanine Aminotransferase 14 0 - 31 U/L [facility] Total Protein 7.9 6.5 - 8.0 g/dL [facility] Albumin Level 4.3 3.5 - 5.0 g/dL [facility] Alkaline Phosphatase 58 39 - 117 U/L [facility] 02/19/2025 11:4 1 AM EDT 02/19/2025 11:41 AM EDT us Generic External Data Provider LAB BLOOD ORDERAB LES Final Result [facility] [address] [place] [phone] * Hemoglobin A1c (04/26/2024 8:28 AM EDT) Hemoglobin A1c 4.9 <6.0 % [facility] Comment:Hemoglobin A1C Refer ence Range Adults: 4.8 - 6.0 % Non diabetic: < 6.0 % Goal: < 7.0 %Additional Action Suggested: > 8.0 %Note: Hemoglobin A1c results are invalid for patients with abnormal amounts of HbF. Blood transfusions may impact the HbA1c concentration in the patient sample. Estimated Average Glucose 94 mg/dL [facility] Comment:eAG = Estimated ave rage glucose which is %A1C expressed asaverage glucose, using the formula of the X4N-CfdxfnoVchbnnx Glucose study (ADAG), Diabetes Care, Vol.31,#8,2007 04/26/2024 8:28 AM EDT 04/26/2024 8:28 AM EDT Generic External Data Provider LAB BLOOD ORDERAB LES Final Result Performing Organization Address [facility]/ZIP Co de Phone Number [facility] [address] [place] [address] [phone] * (ABNORMAL) Lipid Panel, Standard (04/26/2024 8:28 AM EDT) Triglycerides 80 <150 mg/dL [facility] Comment:Desirable Triglyceri de: less than 150 mg/dLBorderline High Triglyceride 150-199 mg/dLHigh Triglyceride: 200-499 mg/dLVery High Triglyceride: greater than or equal to 5OO mg/dL Cholesterol 186 <200 mg/dL [facility] Comment:Desirable Cholestero l: less than 200 mg/dLBorderline High Cholesterol: 200-239 mg/dLHigh Cholesterol: greater than 239 mg/dL LDL Cholesterol Calculated 120(H) <100 mg/dL [facility] Comment:Desirable LDL: less than 100 mg/dLNear Optimal/Above Optimal LDL: 110- 129 mg/dLBorderline High LDL: 130-159 mg/dLHigh LDL: 160-189 mg/dLVery High LDL: greater than or equal to 190 mg/dL HDL Cholesterol 50 >40 mg/dL [facility] Comment:Desirable HDL: great er than 40 mg/dL Note: This HDL assay may give artificially low results in patients with liver disease. 04/26/2024 8:28 AM EDT 04/26/2024 8:28 AM EDT us Generic External Data Provider LAB BLOOD ORDERAB LES Final Result Performing Organization Address City/[facility]/ZIP Co de Phone Number [facility] [address] [place] [address] [phone] * Hm Colonoscopy (03/18/2024) Colonoscopy Normal Normal 03/18/2024 Morales Ly MD HEALTH MAINTENANCE Final Result * THINPREP TIS PAP AND HPV mRNA E6/E7 WITH REFLEX TO HPV 16,18/45 (07/12/2021 10:33 AM EST) Clinical Information: None given [facility] COMMENT SEE COMMENT [facility] Comment: EXPLANATORY NOTE: The Pap is a screening test for cervical cancer. It is not a diagnostic test and is subject to false negative and false positive results. It is most reliable when a satisfactory sample, regularly obtained, is submitted with relevant clinical findings and history, and when the Pap result is evaluated along with historic and current clinical information. COMMENT: This Pap test has been evaluated with computer assisted technology. [facility] Senior Painter: SEE COMMENT [facility] Comment: YP, CT(ASCP) CT screening location: [place] [address] HPV nRNA E6/E7 Not Detected Not Detected [facility] Comment: Methodology: [employer] Part [employer]er-Mediated Amplification This assay detects E6/E7 viral messenger RNA (mRNA) from 14 high-risk HPV types (16,18,31,33,35,39,45,51,52,56,58,59,66,68). The analytical performance characteristics of this assay have been determined by [employer]. The modifications have not been cleared or approved by the FDA. This assay has been validated pursuant to the CLIA regulations and is used for clinical purposes. For additional information, please refer to [email or web address] (This link if provided for information/ educational purposes only.) Interpretation/Re sult: Negative for intraepithelial lesion or malignancy. [employer] [facility] LMP: 121,321 [facility] Prev. BX: NONE [facility] Prev. PAP: NONE [facility] SOURCE: None given [facility] Statement Of Adequacy: SEE COMMENT [facility] Comment: Satisfactory for evaluation. Endocervical/transformation zone component absent. 07/12/2021 10:3 3 AM EST us Millie Sánchez CNM LAB PATHOLOGY ORDERABLES Final Result [facility] [address] from Last 3 Months or Most Recently Relevant to Health Maintenance Insurance [facility] C3 Care Teams Tape Editor Relationship Specialty Start Date End Date Name, MD Morales [address] [place] [address] PCP - General Family Medicine 07/01/21
--- OUTSIDE RECORDS SUMMARY | 2025-04-10 15:01 | XMS_ITS | Encounter Summary ---
Author Organization [employer] Address [address] [facility] 7t [place] [address] Care Team Providers Care Bird Raiser Name Role Phone Name, Morales RAMSEY Primary Care Provider [phone] Reason for Visit * Reason Onset Date Comments Hospital Follow-up 03/29/2024 Encounter Details Date Type Department Care Team (Late st Contact Info) Description 03/29/2024 Telephone [facility] [address] [place] [address] Name, MD Morales [address] [place] [address] Hospital Follow-up Social History Tobacco Use Types [...] EDT Please obtain in patient notes from [facility] admitted 03/17/24 and transfer to [facility] inpatient with diwscharge date of 03/28/24. Hospital discharge follow up appt booked for 04/05/24 Monica CHISHOLM 2pm * Telephone Encounter - Senia Levine LPN - 03/29/2024 10:40 AM EDT Triage call returned to patient with [place] [id number]. Patient discharged from [facility] yesterday. Initial admission to [facility] on 03/17/24 transferred to [facility] after 6 days and discharged to home yesterday. is feeling well. Concerned with Insurance coverage.Ryla active as run today. No new symptoms [...] pt requesting a HDF appt. Hospital: [facility] Date of admission: 03/17/24 Discharge date: 03/28/24 Diagnosed: Abdominal Pain (Turkish Speaker) documented in this encounter Plan of Treatment Upcoming Encounters Date Type Department Care Team (Late st Contact Info) Description 05/06/2025 9:30 AM EDT Office Visit [facility] [address] [place] [address] Name, MD Morales [address] [place] [address] 05/15/2025 1:00 PM EST Nutrition [facility]/NTRN [address] [place], [place] [id number] N[address] Hu[address] [place] [address] 06/13/2025 11:30 AM EST Office Visit [address] [address] Tasha Jasso MD [address] [place] [address] documented as of this encounter Visit Diagnoses Not on filedocumented in this encounter Additional Health Concerns Assessment Noted Time PHQ-9 Depression Total Score: 0 12/16/19 11:12 AM EDT documented as of this encounter Care Teams Bird Raiser Relationship Specialty Start Date End Date Name, MD Morales [address] [place] [address] PCP - General Family Medicine 07/01/21 documented as of this encounter
--- OUTSIDE RECORDS SUMMARY | 2025-04-10 15:01 | XMS_ITS | Encounter Summary ---
Author Organization [employer] Address [address] [facility] [address] [place] [address] Care Team Providers Care Pad Machine Operator Name Role Phone Name, Morales RAMSEY Primary Care Provider [phone] Reason for Visit * Reason Comments Med Refill Encounter Details Date Type Department Care Team ([facility] st Contact Info) Description 12/16/2024 Refill [facility] [address] [place] [address] Name, MD Morales [address] [place] [address] Asthma, unspecified asthma severity, unspecified whether complicated, [...] Description 05/06/2025 9:30 AM EDT Office Visit [facility] [address] [place] [address] Name, MD Morales [address] [place] [address] 05/15/2025 1:00 PM EST Nutrition [facility] [address] [place], [place] [phone] Naya Huertas RD [address] [place] [address] 06/13/2025 11:30 AM EST Office Visit [facility] [address] [place] [address] Tasha Jasso MD [address] [place] [address] documented as of this encounter Visit Diagnoses Diagnosis Asthma, unspecified asthma severity, unspecified whether complicated, unspecified whether persistent documented in this encounter Additional Health Concerns Assessment Noted Time PHQ-9 Depression Total Score: 17 025 8:17 AM EDT documented as of this encounter Care Teams Pad Machine Operator Relationship Specialty Start Date End Date Name, MD Morales [address] [place] [address] PCP - General Family Medicine 07/01/21 documented as of this encounter
--- OUTSIDE RECORDS SUMMARY | 2025-04-10 15:02 | XMS_ITS | Patient Health Record ---
Author Organization [facility] Address [address] [place] [address] Care Team Providers Care Press Reader Name Role Phone Name Morales RAMSEY Primary Care Provider Jamarcus Tubbs [facility] [phone] Allergies Allergen (clinical drug ingredient) Drug/Non Drug Allergy documented on EMR Reaction Allergy Type Onset Date Status PredniSONE Unknown Drug Allergy Active naproxen Naproxen Unknown Drug Allergy Active Motrin Unknown Drug Allergy Active ibuprofen Advil Unknown Drug Allergy Active Reason For Referral Referring Provider First Name Morales Referring Provider Last Name Name Referring Provider Speciality Internal edicine Referred Organization [facility] Referred Provider Jamarcus Banda Referred Address [address] [place] [address], [address],[place], [place],[address],[place] Referred Provider Specialty Gastroentero logy Referral Priority Routine Referring Provider First Name Morales Referring Provider Last Name Name Referring Provider Speciality Internal edicine Referred Organization [facility] Referred Provider Jamarcus Banda Referred Address [address] [place] [address],[facility], [place],[address],[place] Referred Provider Specialty Gastroentero logy Referral Priority Routine Medications Medication SIG (Take, Route, Frequency, Duration) Notes Start Date End Date Status Ferrous Sulfate Acti ve Lidocaine 5 % APPLY 1 PATCH TOPICA LLY TO SKIN, LEAVE ON FOR 12 HOURS AND OFF FOR 12 HOURS DIRECTED External for 30 Days Active Pantoprazole Sodium 40 MG 1 tablet 1/2 t o 1 hour before morning meal Orally Once a day Active Loratadine 10 MG TAKE 1 TABLET BY TINA TH EVERY DAY Oral for 90 Days Active diphenhydrAMINE HCl Active Colace Active Acetaminophen Extra Strength 500 MG TAKE TWO TABLETS BY MOUTH EVERY 8 HOURS NEEDED FOR PAIN Oral for 5 Days Active Calcium Citrate + D Active Cyclobenzaprine HCl Active Omeprazole 20 MG 1 capsule Orally Onc e a day Active Albuterol Sulfate Ac tive SUMAtriptan Succinate 25 MG TAKE 1 TABLE T BY MOUTH AT ONSET OF MIGRAINE. MAY REPEAT ONCE AFTER 2 HOURS IF NEEDED, DO NOT EXCEED 2 TABLETS / 24 HOURS Oral for 15 Days Active Vitamin B1 100 MG 1 tablet Orally Once a day Active Amitriptyline HCl 10 MG TAKE 1 [...] Interpretation Negative Section Notes: Nonsmoker; no alcohol Nonsmoker; no alcohol Problems Problem Type SNOMED Code ICD Code Onset Dates Problem Status W/U Status Risk Notes Problem Colon cancer screening (985069390) Colon cancer screening (Z12.11) Active confirmed Problem 41514339 Heartburn (R12) Active confirmed Problem Iron deficiency anemia (44579933) Iron deficiency anemia (D50.9) Active confirmed Problem 625567141 Gastroesophageal reflux disease, esophagitis presence not specified (K21.9) Active confirmed Problem Esophageal stricture (04128693) Esophageal stricture (K22.2) Active confirmed Problem Diverticular disease of colon (435137507) Diverticulosis large intestine w/o perforation or abscess w/o bleeding (K57.30) Active confirmed Vital Signs Blood pressure diastolic 77 mm Hg 12/05/2024 Height 64 in 12/05/2024 Blood pressure systolic 111 mm Hg 12/05/2024 Weight 217 lbs 12/05/2024 BMI 37.24 kg/m2 12/05/2024 Encounters Encounter Location Date Provider Diagnosis [facility] [address] [place] [phone] 12/05/2024 Jamarcus Banda Iron deficiency anemia D50.9 and Colon cancer screening Z12.11 [facility] [address] [place] [address] 08/05/2024 Jamarcus Banda [facility] [address] [place] [address] 12/05/2024 Jamarcus Banda Assessments Encounter Date Diagnosis (ICD Code) Assessment Notes Treatment Notes Treatment Clinical Notes Section Notes 12/05/2024 Colon cancer screening (ICD-10 - Z12.11) [...] keep you advised of her progress. 12/05/2024 Iron deficiency anemia (ICD-10 - D50.9) [...] advised of her progress. Plan Of Treatment Pending Test Test Name Order Date GI BIOPSY 01/03/2018 Future Test Test Name Order Date UPPER GI ENDOSCOPY 08/22/2017 Insurance Providers Payer Name Payer Address Payer Phone Subscriber Number Group Number Insured Name Patient Relationship to Insured Coverage Start Date Coverage End Date [employer]ICA[employer] [facility] [employer] [facility] [id number] [id number] CHUCHO HOLT Self - patient is the insured Medical (General) History Medical History History ICD Code Denies VT,CVA,renal disease Hypertension NIDDM--resolved with weight loss Asthma GERD--[place]--she describes gastritis with probable H.pylori and a hiatal hernia--describes being treated with antibiotics Sleep apnea--uses CPAP Mild diverticulitis on CT scan in 7 Seasonal allergies An upper endoscopy in 2017 r evealed a moderate-sized hiatal hernia and mild gastritis, but without any esophagitis or Devine's esophagus. Gastric biopsies were negative for H. pylori. Hospitalization for GI bleed ing and anemia in March 2024. She underwent a colonoscopy with Dr. Olivo that was negative for polyps or any other lesions. An upper endoscopy with Dr. Olivo revealed a nonobstructing esophageal ring, hiatal hernia, and minimal changes of gastritis with biopsies negative for H. pylori. Iron deficiency anemia in re lation to irregular and heavy menses with a negative GI workup as above. Her anemia did improve with iron supplements as of October 2024 Surgical History Surgery Date(Month/Year) Umbilical hernia Laparoscopic sleeve gastrectomy Cholecystectomy 1997 Tubal ligation 1997
== END 2025-04-10 13:58 | disposition home or self-care (01) ==
LOC: HO.HOS 13:32
PROVIDERS: PCP Internal Medicine Geriatric Medicine; Visit Provider Orthopaedic Surgery
DX: M25.511 Pain in right shoulder (principal)
CPT/HCPCS: 99024

== ENCOUNTER → 2025-04-10 13:31 | Outpatient (BNVA) | payer MEDICAID, SELFPAY | PROVIDERS: PCP Internal Medicine Geriatric Medicine; Visit Provider Orthopaedic Surgery | DX: Z47.89 Encounter for other orthopedic aftercare (principal); M25.511 Pain in right shoulder | CPT/HCPCS: 99212 ==

== ENCOUNTER 2025-05-19 14:00 | Outpatient (RCR) | payer MEDICAID, SELFPAY ==
--- NOTE | 2025-04-03 13:49 | MHC.PT.EP ---
[facility] [place] Office [place] Office [place] Office [address] [phone] F: [phone] F: [phone] F: [phone] F: [phone] Physical Therapy Plan of Care Date of Evaluation: 04/03/25 Date of Surgery: 03/28/25 Diagnosis: per script: impingement of right shoulder anterior capsular release, coracoacromial ligament excision, 8 mm DCE, bursectomy, DWAYNE on 03/28/25 (RL) Assessment: pt is a 49 y/o female presenting to physical therapy w/ referring diagnosis of impingement of right shoulder . pt underwent R shoulder anterior capsular release, coracoacromial ligament excision, 8 mm DCE, bursectomy and DWAYNE on 03/28/25. Impairments include pain, decreased range of motion, decreased strength, impaired functional mobility, impaired postural awareness, and altered ambulation mechanics. pt is a good candidate for skilled PT due to age, potential remediation of impairments, typical disease/condition progression and prognosis, comorbidities, and motivation. pt would benefit from skilled PT intervention to provide a tailored strengthening and stretching exercise program, functional training, gait training, postural re-training, neuromuscular re-education, modalities as needed for pain, equipment safety demonstration. Frequency and Duration: The patient will be seen 2x/wk for 4 wks Short Term Goals: pt will be I w/ HEP to promote self-management of condition. pt will improve R shoulder flexion by at least 15* to promote ease in overhead reaching. Pill Machine Operator Goals: pt will be able to carry 10# object by herself 2x20' to promote return to functional lifting within the home. pt will report a statistically significant improvement in self-reported outcome measure, SPADI, to promote return to PLOF. Treatment Plan: Modalities to reduce pain, spasms and effusion. Manual therapy to restore motion and function. Therapeutic exercise to improve strength and flexibility. Neuromuscular re-education for posture and balance. Therapeutic activities to return to functional activities of daily living. Electronically signed by: Josie Valentin PT, DPT Please sign and return to therapist. Thank you for your referral.
--- NOTE | 2025-05-21 10:12 | MHC.PT.DC ---
[facility] [place] [facility] [place] [facility] [place] [facility] [address] Dmitry Berg 140 [facility] [phone] F: [phone] F: [phone] F: [phone] F: [phone] Physical Therapy Discharge Report Diagnosis: per script: impingement of right shoulder anterior capsular release, coracoacromial ligament excision, 8 mm DCE, bursectomy, DWAYNE on 03/28/25 (RL) Date of Surgery: 03/28/25 Date of Evaluation: 04/03/25 Date of Discharge: 05/21/25 Treatments to Date: 9 Cancellations to Date: 5 No Shows to Date: 2 Discharge Status: Recommend MD Follow-up Visit Non-compliance Discharge Summary: The patient has had a significant number of cancellations and no shows. In the time where she was not attending her PT appointments she was not compliant with her gentle shoulder ROM and strengthening program. It was difficult to progress her program to improve her shoulder function due to poor attendance and compliance. She is discharged at this time. Electronically signed by: Josie Valentin PT, DPT Please sign and return to therapist. Thank you for your referral.
== END 2025-05-21 10:12 | disposition home or self-care (01) ==
LOC: HO.PT 14:00
PROVIDERS: PCP Internal Medicine Geriatric Medicine; Visit Provider Orthopaedic Surgery
DX: M25.811 Other specified joint disorders, right shoulder (principal); Z98.890 Other specified postprocedural states
CPT/HCPCS: 97110; 97162